=== PATIENT | female | born 1960 | race Caucasian/White ===

== ENCOUNTER 2019-08-05 13:23 | Emergency (ER) | payer MEDICARE, SELFPAY ==
[2019-08-05 13:30] VITALS: PULSE 136; RESP 48; TEMP 37.2; O2SAT 97
[2019-08-05 13:31] VITALS: BP 146/104; PULSE 93; RESP 22; TEMP 36.5; O2SAT 98; BMI 36.4
[2019-08-05 13:59] VITALS: BP 158/101; PULSE 85; RESP 16; O2SAT 98
--- NOTE | 2019-08-05 14:30 | ED_ITS ---
Entered by Keeley Guadalupe, acting as scribe for Aug 05, 2019 13:23 HPI - SOB/Dyspnea General: Chief Complaint: Shortness of Breath/Dyspnea Stated Complaint: Poss allergice reaction Time Seen by Provider: 08/05/19 14:30 Source: patient Mode of arrival: ambulatory Limitations: no limitations History of Present Illness: HPI Narrative: 59 yo female presents with allergic reaction and shortness of breath. pt states she was getting adjusted at chiropractor when she started having hives and shortness of breath. pt states she is allergic to multiple things and cats, she believes the chiropractor had cats on his clothes and she started reacting. pt denies any other symptoms at this time. 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) Context: allergen exposure (possible cat scent) Timing: progressively worsening Severity: mild Exacerbating factors: allergies and deep breaths Relieving factors: nothing Known history of: other (cat allergies) Associated symptoms: Reports rash; Deny abdominal pain, chest pain, dizziness, extremity pain, fever(s), nausea, palpitations, polydipsia, polyuria, syncope or vomiting Treatment prior to arrival: none Related Data: Home oxygen amount: none Review of Systems Const: Denies: fever, chills, body aches, fatigue, malaise or night sweats Eyes: Denies: change in vision or blurry vision ENMT: Denies: throat pain, oral sores/lesions, dental pain, nasal discharge or nasal congestion Card: Denies: chest pain, palpitations, irregular heart rhythm, edema, syncope or leg pain with exertion Resp: Denies: wheezing GI: Denies: abdominal pain, nausea, vomiting, vomiting blood, coffee grounds in vomit, difficulty swallowing, heartburn/indigestion, diarrhea, constipation, cramping, blood in stool or black tarry stool : Denies: flank pain, painful urination, urinary frequency, urinary urgency, urinary incontinence or blood in urine Musc: Denies: neck pain, back pain, extremity pain, extremity swelling, joint pain or joint swelling Neuro: Denies: headache, numbness in extremities, weakness in extremities, changes in sensation, lack of coordination, difficulty walking, frequent falls, dizziness, vertigo or confusion Psych: Denies: anxiety, depression, loss of interest, visual hallucinations, auditory hallucinations, suicidal ideation or homicidal ideation Endo: Denies: excessive urination, excessive thirst, tired all the time or cold intolerance Aashish/Lymph: Denies: easy bruising, easy bleeding, petechiae, enlarged lymph nodes or tender lymph nodes PFSH ED PFSH: Statuses (acute, chronic, etc) shown below reflect problem list status as previously entered and may not be historically accurate Social History Smoking and tobacco status: never smoked Physical Exam Const: COMMON NORMALS: average body habitus, oriented x3 and alert GENERAL APPEARANCE: cooperative, comfortable, well kempt and well developed NUTRITIONAL APPEARANCE: obese ORIENTATION/CONSCIOUSNESS: Yes awake, Yes oriented to person and Yes oriented to place HENMT: COMMON NORMALS: normocephalic, head/scalp atraumatic, EAC's normal, TM's normal bilaterally, external nose normal, moist oral mucous membranes and oropharynx normal HEAD & SCALP: normocephalic and atraumatic NOSE: external nose normal EXTERNAL AUDITORY CANAL: EAC's normal TYMPANIC MEMBRANE: TM's normal bilaterally MOUTH: oral and palatal mucosa normal, lip normal and tongue normal THROAT: posterior oropharynx normal and tonsils normal Eye: COMMON NORMALS: PERRL, EOMs intact bilaterally, conjunctivae normal and no scleral icterus CONJUNCTIVA: Yes conjunctivae normal PUPIL: Yes PERRL Neck/C-Spine: COMMON NORMALS: full ROM, no lymphadenopathy, supple, no meningeal signs and thyroid normal THYROID: thyroid normal and asymmetrical Lymph: LYMPHATIC: no lymphadenopathy noted Cardio: COMMON NORMALS: regular rate and regular rhythm RATE: regular rate RHYTHM: regular rhythm HEART SOUNDS: no murmurs GI: COMMON NORMALS: normal to inspection, nondistended, normoactive bowel sounds, soft to palpation and no hepatosplenomegaly PALPATION: Yes soft and Yes no hepatosplenomegaly : COMMON NORMALS: Yes no CVA tenderness BLADDER/KIDNEY EXAM: Yes no CVA tenderness Back/Pelvis: COMMON NORMALS: no CVA tenderness LUMBAR SPINE/LOWER BACK: Yes normal to inspection Extremity: COMMON NORMALS: no clubbing, cyanosis or edema, no calf tenderness and no pedal edema Neuro: COMMON NORMALS: oriented x3 SENSORIUM/ORIENTATION: Yes alert, Yes oriented to person and Yes oriented to place MENINGEAL SIGNS: Yes no meningeal signs Psych: APPEARANCE: Yes well kempt Course ED course: Patient has no evidence of externally of any reaction ENT exam is normal skin exam is normal there are no hive on auscultation there is no wheezing. She states that the hives are internal. She actually became quite upset. Discussed with her that I would be happy to treat her with other medications although she states she cannot take steroids she tells me it gives her horrible allergy and try to pin down what allergic type reaction she has she became more upset states the only thing she can take is Benadryl she refuses any other antihistamines. There is no stridor no wheezing laboratories completed reviewed with the patient we will discharge her home on Pepcid and Benadryl her follow-up with her extrusion press adjuster. She states this is a long standing problem and she has been seen for by multiple physicians and now follows with an extrusion press adjuster I do not see any life-threatening illness at the time things worsen or change she can certainly return immediately. Vital Signs: Vital signs: Vital Signs Temperature 97.7 F 08/05/19 13:31 Pulse Rate 87 08/05/19 15:52 Respiratory Rate 18 08/05/19 15:52 Blood Pressure 156/101 08/05/19 15:52 Pulse Oximetry 99 08/05/19 15:52 MDM - SOB/Dyspnea Lab Data: Labs: Lab Results 08/05/19 08/05/19 08/05/19 Range/Units 14:50 14:50 15:00 WBC 9.0 (4.0-10.0) 10^3/ uL RBC 4.66 (4.1-5.3) 10^6/u L Hgb 13.8 (11.5-15.3) g/dL Hct 42.9 (37.0-47.0) % MCV 92.1 (81-99) fL MCH 29.6 (28.0-34.0) pg MCHC 32.2 (30.0-36.0) g/dL RDW 13.0 (12.1-15.1) % Plt Count 265 (130-400) 10^3/c mm MPV 9.0 (7.4-10.4) fL Neut % (Auto) 57.6 % Lymph % (Auto) 33.4 % Emmet % (Auto) 7.3 % Eos % (Auto) 1.1 % Baso % (Auto) 0.3 % Neut # (Auto) 5.2 (1.8-7.7) 10^3/u L Lymph # (Auto) 3.0 (0.8-4.8) 10^3/u L Emmet # (Auto) 0.7 (0.2-0.9) 10^3/u L Eos # (Auto) 0.1 (0.0-0.8) 10^3/u L Baso # (Auto) 0.0 (0.0-0.1) 10^3/u L Nucleated RBC % (a uto) 0 % Nucleated RBCs # 0.0 /100WBC Specimen Type Arterial Sample Site Radial, right ABG pH 7.42 (7.35-7.45) ABG pCO2 32.8 L (35-45) mmHg ABG pO2 72.1 L (80.0-100.0) mmH g ABG HCO3 21.1 L (22-26) mmol/L ABG O2 Saturation 95.6 ABG Base Excess -2.7 L (-2.0-2.0) mmol/ L Suraj Test Pos A-a O2 Gradient 36.0 H (5-10) mmHg Hematocrit 42.5 (37-47) % Hgb O2 Saturation 94.7 L (95-100) % Carboxyhemoglobin 0.4 (0.4-20.1) %THgb Methemoglobin 0.5 (0.4-1.5) % Total Hemoglobin 13.9 (12-16) g/dL Ionized Calcium 1.2 (1.1-1.4) mmol/L FiO2 21.0 % Cured Meats Supervisor ID ed Sodium 139 145.0 H (136-145) mmol/L Potassium 3.7 3.6 (3.5-5.1) mmol/L Chloride 105 (98-107) mmol/L Carbon Dioxide 22 (22-29) mmol/L Anion Gap 15.7 (5-19) BUN 12 (6-20) mg/dL Creatinine 0.9 (0.5-0.9) mg/dL GFR Calculation 64.5 L (90-130) mL/min Glucose 102 92.0 (74-109) mg/dL Calcium 10.0 (8.6-10.0) mg/Dl Imaging Data^: CXR: Radiologist's impression: [address] [place] [address] XRay Report Signed Patient: Renetta Uriostegui #: [id number] : 2Acct#:[id number] Age/Sex: 59 / FADM Date: 08/05/19 Loc: ERRoom/Bed: Attending Dr: Ordering Provider/Ordering MD: Guido Evans DO Date of Service: 08/05/19 Procedure(s): XR chest 1V portable [id number] Accession Number(s): [id number] Report Number: [id number] WS: [id number] Portable AP upright chest, 08/05/2019 Clinical Data: SOB Comparison: PA and lateral chest, 01/09/2019. Findings: No nodules, masses or effusions are seen. The heart is normal. The pulmonary vascularity is not increased. No pneumonia or pneumothorax is seen. The aortic arch and descending aorta show minimal calcification. XR/XR chest 1V portable [id number] Impression: Atherosclerosis. Dictated By:Nancy Millan MD Signed By:Nancy Millan MDSigned Date/Time:08/05/191457 DD/ 53 Discharge Plan Discharge Patient Disposition: Home, Self-Care Clinical Impression: Allergic reaction Condition: Stable Prescriptions: New Pepcid 20 mg tablet 20 mg PO Q6H Qty: 20 RF: 0 No Action losartan 50 mg Tablet 50 mg PO DAILY RF: 0 carisoprodol 350 mg Tablet 350 mg PO TID PRN (Reason: Pain) RF: 0 Lasix 40 mg Tablet 40 mg PO DAILY PRN (Reason: Edema) RF: 0 potassium chloride 10 mEq Capsule, Extended Release 10 meq PO DAILY RF: 0 alprazolam 1 mg Tablet 1 mg PO QID PRN (Reason: Anxiety) RF: 0 trazodone 100 mg Tablet 200 mg PO BEDTIME RF: 0 pantoprazole 40 mg Tablet,Delayed Release (Dr/Ec) 40 mg PO DAILY RF: 0 montelukast 10 mg Tablet 10 mg PO DAILY RF: 0 ergocalciferol (vitamin D2) 50,000 unit Capsule 50,000 unit PO DAILY RF: 0 topiramate 100 mg Tablet 100 mg PO DAILY RF: 0 levothyroxine 25 mcg Capsule 25 mcg PO DAILY RF: 0 Discharge Orders: Discharge Order (Routine); Ordered 08/05/19 Ordered By: Guido Evans Referrals: Philippe Garg MD [Family Provider] - Discharge Diet: Advance as tolerated Discharge Activity: Resume usual activity Activity Restrictions/Additional Instructions: May use [id number] Benadryl as needed recommend 25 mg every 6 hours as needed Discharge Date/Time: 08/05/19 15:52 Coding Level of Care Code ED Senior Environmental Practice Leader for Chg Fwd Exam Problem Focused The documentation recorded by the [employer] [facility] Bridget Annette, accurately reflects the service I personally performed and the decisions made by , Guido Evans DO Aug 05, 2019 13:23
[2019-08-05 14:31] VITALS: BP 160/98; PULSE 85; RESP 20; O2SAT 98
--- NOTE | 2019-08-05 14:33 | XR_ITS ---
WS: [id number] Portable AP upright chest, 08/05/2019 Clinical Data: SOB Comparison: PA and lateral chest, 01/09/2019. Findings: No nodules, masses or effusions are seen. The heart is normal. The pulmonary vascularity is not increased. No pneumonia or pneumothorax is seen. The aortic arch and descending aorta show minim al calcification. XR/XR chest 1V portable [id number] Impression: Atherosclerosis.
[2019-08-05] MEDS: famotidine 20 mg Tablet 40 MG PO (14:47)
[2019-08-05 14:58] LABS: Basophils % 0.3 %; Eosinophils # 0.1 10^3/uL (0.0-0.8); Eosinophils % 1.1 %; Hematocrit 42.9 % (37.0-47.0); Hemoglobin 13.8 g/dL (11.5-15.3); Lymphocytes % 33.4 %; Mean Corpuscular HGB Conc 32.2 g/dL (30.0-36.0); Mean Corpuscular Hemoglobin 29.6 pg (28.0-34.0); Mean Corpuscular Volume 92.1 fL (81-99); Monocytes # 0.7 10^3/uL (0.2-0.9); Monocytes % 7.3 %; Neutrophils # 5.2 10^3/uL (1.8-7.7); Neutrophils % 57.6 %; Nucleated Red Blood Cells % 0 %; Platelet Count 265 10^3/cmm (130-400); Red Blood Count 4.66 10^6/uL (4.1-5.3)
[2019-08-05] MEDS: diphenhydrAMINE 50 mg/mL SDV 1mL 25 MG IVP (15:05)
[2019-08-05 15:12] LABS: Anion Gap 15.7 (5-19); Blood Urea Nitrogen 12 mg/dL (6-20); Carbon Dioxide 22 mmol/L (22-29); Chloride 105 mmol/L (98-107); Glomerular Filtration Rate 64.5 mL/min (90-130); Glucose 102 mg/dL (74-109); Potassium 3.7 mmol/L (3.5-5.1); Sodium 139 mmol/L (136-145)
[2019-08-05 15:13] LABS: ABG PCO2 32.8 mmHg (35-45); ABG PH Result 7.42 (7.35-7.45); Arterial Blood Gas Hematocrit 42.5 % (37-47); Base Excess ABG -2.7 mmol/L (-2.0-2.0); Blood Gas Allen Test Pos; Blood Gas Sample Site Radial, right; Blood Gas Sample Type Arterial; Carboxyhemoglobin 0.4 %THgb (0.4-20.1); HCO3 ABG 21.1 mmol/L (22-26); HGB O2 Sat 94.7 % (95-100); Ionized Calcium Level - ABG 1.2 mmol/L (1.1-1.4); Methemoglobin 0.5 % (0.4-1.5); Oxygen Saturation ABG 95.6; PO2 ABG 72.1 mmHg (80.0-100.0); Potassium Level - ABG 3.6 mmol/L (3.5-5.0); Total Hemoglobin 13.9 g/dL (12-16)
[2019-08-05 15:52] VITALS: BP 156/101; PULSE 87; RESP 18; O2SAT 99
== END 2019-08-05 15:52 | disposition home or self-care (01) ==
PROVIDERS: Emergency Provider Family Medicine; Family Provider Family Medicine
DX: T78.40XA Allergy, unspecified, initial encounter (principal); X58.XXXA Exposure to other specified factors, initial encounter
CPT/HCPCS: 36415; 36600; 71045; 80048; 80051; 82810; 83986; 85025; 96374; 99281; J1200

== ENCOUNTER → 2019-12-17 15:42 | Outpatient (BNVA) | payer MEDICARE, MEDICAID, SELFPAY | PROVIDERS: Family Provider Family Medicine; PCP Family Medicine; Referring Provider Family Medicine; Visit Provider Podiatrist Foot & Ankle Surgery | DX: M79.671 Pain in right foot (principal); M79.672 Pain in left foot | CPT/HCPCS: 73630 ==

== ENCOUNTER 2020-02-05 15:28 | Outpatient (CLI) | payer MEDICARE, MEDICAID, SELFPAY | END 2020-02-05 15:29 | disposition home or self-care (01) | LOC: SPT 15:29 | PROVIDERS: Family Provider Family Medicine; PCP Family Medicine; Visit Provider Podiatrist Foot & Ankle Surgery | DX: Z47.89 Encounter for other orthopedic aftercare (principal); M76.72 Peroneal tendinitis, left leg | CPT/HCPCS: 97760; L4397 ==

== ENCOUNTER 2020-05-04 13:17 | Outpatient (CLI) | payer MEDICARE, MEDICAID, SELFPAY ==
--- NOTE | 2020-05-04 13:24 | MR_ITS ---
WS: [id number] MRI LEFT ANKLE NONCONTRAST TECHNIQUE: Sagittal proton density, sagittal STIR, axial proton density, axial T1, axial T2 fat sat, coronal proton density, coronal proton density fat sat, coronal T2 fat sat. CLINICAL INFORMATION: left leg peroneal tendinitis COMPARISON: None. FINDINGS: Normal ankle mortise. Normal medial and lateral malleolus. Normal talar dome. Normal calcaneus. Dist al Achilles appears intact. Normal plantar fascia. Peroneal longus and brevis appear intact. Normal peroneal brevis insertion on the base of the fifth m etatarsal. Bone marrow signal in the fifth metatarsal base appears normal. Tiny amount of tenosynovit is along the peroneal brevis at the level of the peroneal tubercle Extensor and flexor compartment tendons are normal. Tiny amount of tenosynovitis along the tibialis p osterior. Extensor and flexor compartment tendons are otherwise normal in appearance. IMPRESSION: 1. Peroneal tendons are intact. Tiny amount of tenosynovitis involving the peroneal brevis at the le luis alfredo of the tubercle. Normal insertion at the base of the fifth metatarsal. 2. Distal Achilles is normal. 3. Small amount of tenosynovitis involving the tibialis posterior. 4. Normal bone marrow signal.
== END 2020-05-04 13:18 | disposition home or self-care (01) ==
LOC: RADWPI 13:22
PROVIDERS: Family Provider Family Medicine; PCP Family Medicine; Visit Provider Podiatrist Foot & Ankle Surgery
DX: M76.72 Peroneal tendinitis, left leg (principal); M65.872 Other synovitis and tenosynovitis, left ankle and foot
CPT/HCPCS: 73721

== ENCOUNTER 2020-12-29 07:05 | Outpatient (CLI) | payer MEDICARE, MEDICAID, SELFPAY ==
--- NOTE | 2020-12-29 07:21 | US_ITS ---
WS: [id number] RENAL ULTRASOUND HISTORY: NEPHROLITHIASIS COMPARISON: None available. TECHNIQUE: 2-D and color Doppler imaging of the kidney submitted. Right kidney: 9.9 cm x 6.0 cm x 6.7 cm. No hydronephrosis or solid mass. Cortical cyst is stable at 1.5 cm in the mid kidney since 10/10/2018. Left kidney: 8.1 cm x 4.2 cm x 5.4 cm. Mild atrophy of the LEFT kidney is similar to prior studies. No hydronephrosis. Aorta: Normal. Urinary Bladder: Normal distention. US/US renal BI* [id number] IMPRESSION: 1. No residual RIGHT hydronephrosis or calcifications identified. 2. Mild stable atrophy LEFT kidney.
== END 2020-12-29 07:06 | disposition home or self-care (01) ==
PROVIDERS: PCP Family Medicine; Visit Provider Internal Medicine Nephrology
DX: N20.0 Calculus of kidney (principal); N26.1 Atrophy of kidney (terminal)
CPT/HCPCS: 76770

== ENCOUNTER 2021-07-16 12:59 | Emergency (ER) | payer MEDICARE, MEDICAID, SELFPAY ==
[2021-07-16 13:07] VITALS: BP 154/96; PULSE 78; RESP 16; TEMP 36.6; O2SAT 98
--- NOTE | 2021-07-16 13:12 | XR_ITS ---
WS: [id number] RIGHT HAND: 3 VIEW(S) TECHNIQUE: PA, oblique and lateral. HISTORY: injury COMPARISON: None available. No acute fracture or dislocation. Mild interphalangeal joint space narrowing. No fractures or erosions. Mild soft tissue edema along the fifth metacarpal. XR/XR hand RT min 3V* [id number] IMPRESSION: 1. No fracture. 2. Soft tissue edema adjacent to the fifth metacarpal.
--- NOTE | 2021-07-16 13:32 | ED_ITS ---
HPI - Extremity Problem General: Chief complaint: Extremity Injury, Upper Stated complaint: injured R hand Time Seen by Provider: 07/16/21 13:11 History of Present Illness: HPI Narrative: Patient's right hand got struck by a Dog leash type cable that was pulled taunt when her 2 dogs were fighting. Her hand and that get caught in a cable just struck by the cable. Patient had immediate swelling on the area below the little finger. This happened a few minutes ago Complaint: extremity pain Onset (ago): minute(s) Pain Consistency: constant Location: right and upper extremity Severity scale (1-10): 4 Quality: aching Radiation: none Relieving factors: nothing Associated symptoms: Deny fever(s) Review of Systems Const: Denies: fever(s) or chills Musc: Reports: extremity pain (Right hand) Psych: Denies: anxiety or depression [facility] ED PFSH: Medical History (Updated 07/16/21 @ 13:26 by JENIFFER Hernandez) Kidney disease Spinal stenosis Social History Smoking and tobacco status: never smoked Physical Exam Const: COMMON NORMALS: no acute distress GENERAL APPEARANCE: cooperative Extremity: RIGHT UPPER EXTREMITY: Yes hand & digits (Tenderness above fifth metacarpal, hematoma, does have full range of motion) Psych: COMMON NORMALS: mental status grossly normal Course Vital Signs: Vital signs: Vital Signs Temperature 97.8 F 07/16/21 13:07 Pulse Rate 78 07/16/21 13:07 Respiratory Rate 16 07/16/21 13:07 Blood Pressure 154/96 07/16/21 13:07 Pulse Oximetry 98 07/16/21 13:07 Discharge Plan Discharge Patient Disposition: Home Clinical Impression: Contusion Qualifiers: Encounter type: initial encounter Contusion area: hand Laterality: right Qualified Code(s): S60.221A - Contusion of right hand, initial encounter Condition: Stable Prescriptions: No Action (DME) [place] ankle braces, bilateral See Rx Instructions .Route .MEDSUPPLY Qty: 1 RF: 0 B12 Active 1,000 mcg tablet,chewable 1,000 mcg PO DAILY RF: 0 diclofenac sodium [Voltaren] 1 % gel 4 gm TOPICAL QID Qty: 100 RF: 3 (DME) night splint See Rx Instructions .Route .MEDSUPPLY Qty: 1 RF: 0 (DME) Custom functional orthotics See Rx Instructions .Route .MEDSUPPLY Qty: 1 RF: 0 losartan 50 mg Tablet 50 mg PO DAILY RF: 0 carisoprodol 350 mg Tablet 350 mg PO TID PRN (Reason: Pain) RF: 0 Lasix 40 mg Tablet 40 mg PO DAILY PRN (Reason: Edema) RF: 0 potassium chloride 10 mEq Capsule, Extended Release 10 meq PO DAILY RF: 0 alprazolam 1 mg Tablet 1 mg PO QID PRN (Reason: Anxiety) RF: 0 trazodone 100 mg Tablet 200 mg PO BEDTIME RF: 0 pantoprazole 40 mg Tablet,Delayed Release (Dr/Ec) 40 mg PO DAILY RF: 0 montelukast 10 mg Tablet 10 mg PO DAILY RF: 0 ergocalciferol (vitamin D2) 50,000 unit Capsule 50,000 unit PO DAILY RF: 0 topiramate 100 mg Tablet 100 mg PO DAILY RF: 0 levothyroxine 25 mcg Capsule 25 mcg PO DAILY RF: 0 Discharge Orders: Discharge ED (Routine); Ordered 07/16/21 Ordered By: Nathaniel Duarte Referrals: Philippe Garg MD [Primary Care Provider] - Discharge Diet: Usual diet Discharge Activity: Increase activity as tolerated Patient Instructions: Contusion in Adults (ED) Activity Restrictions/Additional Instructions: Apply ice to area as needed. Can take Tylenol for discomfort. Follow-up your family medical provider or return here if worsening symptoms. Coding Level of Care Code ED Group Home Counselor for Tony Vences
== END 2021-07-16 13:34 | disposition home or self-care (01) ==
PROVIDERS: Emergency Provider Nurse Practitioner Family; PCP Family Medicine
DX: S60.221A Contusion of right hand, initial encounter (principal); W22.8XXA Striking against or struck by other objects, initial encounter
CPT/HCPCS: 73130; 99281

== ENCOUNTER 2021-08-18 05:17 | Inpatient (IN) | payer MEDICARE, MEDICAID, SELFPAY ==
[2021-08-18] VITALS (17 sets, daily range): BP systolic 127–151; BP diastolic 51–82; PULSE 63–114; RESP 18–38; TEMP 37.2–37.5; O2SAT 89–94; BMI 32.8
--- NOTE | 2021-08-18 05:23 | XRR_ITS ---
PROCEDURE INFORMATION: Exam: XR Chest Exam date and time: 08/18/2021 5:23 AM Age: 61 years old Clinical indication: Patient HX: SOB coughing x 14 days TECHNIQUE: Imaging protocol: XR of the chest. Views: 1 view. COMPARISON: CR XR chest 1V portable [id number] 08/05/2019 3:01 PM FINDINGS: Lungs: Nonspecific prominence of the interstitial markings and right lower lobe opacity which may be secondary to mild edema versus atypical viral infection. Pleural spaces: Unremarkable. No pleural effusion. No pneumothorax. Heart/Mediastinum: There is mild cardiomegaly. Bones/joints: Unremarkable. XR/XR chest 1V portable [id number] IMPRESSION: 1. Mild cardiomegaly. 2. Nonspecific prominence of the interstitial markings and right lower lobe opacity which may be secondary to mild edema versus atypical viral infection.
--- NOTE | 2021-08-18 05:25 | W.ED.SOB ---
Documented by User: Norbert Wright MD 08/18/21 05:38 HPI - SOB/Dyspnea General: Chief Complaint: ER Hold Stated Complaint: SOB Time Seen by Provider: 08/18/21 05:23 Source: patient and EMS Mode of arrival: EMS Limitations: no limitations History of Present Illness: HPI Narrative: 61-year-old female who was diagnosed with Covid on the . States her symptoms Prima started that day or the day before and since then she has had cough fever body aches states she had increasing shortness of breath over the last 4 to 5 days states he got much worse overnight and called EMS when EMS arrived her pulse ox was in the 70s here on room air it is 79% patient is currently on 6 L to keep her oxygen saturation above 90. She is in distress with tachypnea she denies any worsening improving factors did have a breathing treatment on the way and refused Decadron as she is allergic to steroids she states. Denies any chest pain denies any vomiting or diarrhea. Associated symptoms: Reports fever(s); Deny abdominal pain, chest pain, nausea or vomiting Review of Systems Const: Reports: fever(s), chills and body aches Eyes: Denies: blurry vision or eye discomfort ENMT: Denies: throat pain or dental pain Card: Denies: chest pain Resp: Reports: dyspnea and non-productive cough GI: Denies: abdominal pain, nausea, vomiting or diarrhea : Denies: dysuria Musc: Denies: neck pain or back pain Skin/Breast: Denies: rash Neuro: Denies: headache(s) Psych: Denies: depression Aashish/Lymph: Denies: easy bruising All/Imm: Denies: urticaria PFSH ED PFSH: Medical History (Updated 08/18/21 @ 05:27 by Norbert Wright MD) Kidney disease Spinal stenosis Social History Smoking and tobacco status: never smoked Physical Exam Const: COMMON NORMALS: patient oriented x3 and healthy appearing GENERAL APPEARANCE: in distress and ill appearing HENMT: COMMON NORMALS: normocephalic and atraumatic HEAD & SCALP: normocephalic and atraumatic Eye: COMMON NORMALS: Equal, round and reactive pupils present and EOMs intact bilaterally PUPIL: Yes Equal, round and reactive pupils present Neck/C-Spine: COMMON NORMALS: full ROM and supple Chest: COMMONS NORMALS: normal inspection of the chest and normal palpation of entire chest wall Resp: EFFORT & INSPECTION: Yes tachypneic and Yes respiratory distress AUSCULTATION: rales Cardio: COMMON NORMALS: regular rate, regular rhythm and No murmurs present (Cardio) RATE: regular rate RHYTHM: regular rhythm GI: COMMON NORMALS: Normal to inspection, nondistended, normoactive bowel sounds present, Soft to palpation, non-tender and no masses PALPATION: Yes Soft to palpation Extremity: COMMON NORMALS: normal to inspection and full ROM Neuro: COMMON NORMALS: patient oriented x3, moves all extremities and no focal motor deficits Psych: COMMON NORMALS: mental status grossly normal, Normal thought process present and cooperative THOUGHT PROCESS: Normal thought process present Skin: COMMON NORMALS: no rashes or lesions noted and no wounds GENERAL SKIN EXAM: no rashes or lesions noted Course Vital Signs: Vital signs: Vital Signs Temperature 98.9 F 08/18/21 05:21 Pulse Rate 88 08/18/21 07:18 Respiratory Rate 22 H 08/18/21 07:18 Blood Pressure 151/79 08/18/21 07:18 Pulse Oximetry 92 08/18/21 07:18 MDM - SOB/Dyspnea Lab Data Result diagrams: 08/18/21 05:41 08/18/21 05:41 Labs: Radiology Impressions Chest X-Ray 08/18/21 05:23 IMPRESSION: 1. Mild cardiomegaly. 2. Nonspecific prominence of the interstitial markings and right lower lobe opacity which may be secondary to mild edema versus atypical viral infection. Chest CTA 08/18/21 06:12 IMPRESSION: 1. No sign of acute pulmonary embolism. 2. Bilateral pneumonia, likely due to COVID-19. Laboratory Results WBC 9.3 10^3/uL (4.0-10.0) 08/18/21 05:41 RBC 4.41 10^6/uL (4.1-5.3) 08/18/21 05:41 Hgb 13.0 g/dL (11.5-15.3) 08/18/21 05:41 Hct 40.4 % (37.0-47.0) 08/18/21 05:41 MCV 91.6 fl (81-99) 08/18/21 05:41 MCH 29.5 pg (28.0-34.0) 08/18/21 05:41 MCHC 32.2 g/dL (30.0-36.0) 08/18/21 05:41 RDW 13.1 % (12.1-15.1) 08/18/21 05:41 Plt Count 208 10^3/cmm (130-400) 08/18/21 05:41 MPV 9.1 fL (7.4-10.4) 08/18/21 05:41 Neut % (Auto) 87.7 % 08/18/21 05:41 Lymph % (Auto) 6.8 % 08/18/21 05:41 [place] % (Auto) 4.5 % 08/18/21 05:41 Eos % (Auto) 0.0 % 08/18/21 05:41 Baso % (Auto) 0.1 % 08/18/21 05:41 Neut # (Auto) 8.17 10^3/uL (1.8-7.7) H 08/18/21 05:41 Lymph # (Auto) 0.6 10^3/uL (0.8-4.8) L 08/18/21 05:41 [place] # (Auto) 0.4 10^3/uL (0.2-0.9) 08/18/21 05:41 Eos # (Auto) 0.0 10^3/uL (0.0-0.8) 08/18/21 05:41 Baso # (Auto) 0.0 10^3/uL (0.0-0.1) 08/18/21 05:41 Nucleated RBC % (auto) 0 % 08/18/21 05:41 Nucleated RBCs # 0.0 /100WBC 08/18/21 05:41 D-Dimer 1.48 ug/mIFEU (0-0.59) H 08/18/21 05:41 Specimen Type Arterial 08/18/21 08:05 Sample Site Brachial, right 08/18/21 08:05 ABG pH 7.47 (7.35-7.45) H 08/18/21 08:05 ABG pCO2 29.6 mmHg (35-45) L 08/18/21 08:05 ABG pO2 56.0 mmHg (80.0-100.0) L 08/18/21 08:05 ABG HCO3 21.4 mmol/L (22-26) L 08/18/21 08:05 ABG O2 Saturation 92.1 08/18/21 08:05 ABG Base Excess -1.4 mmol/L (-2.0-2.0) 08/18/21 08:05 Suraj Test Pos 08/18/21 08:05 A-a O2 Gradient 38.7 mmHg (5-10) H 08/18/21 08:05 Hematocrit 38.7 % (37-47) 08/18/21 08:05 Hgb O2 Saturation 90.7 % (95-100) L 08/18/21 08:05 Carboxyhemoglobin 0.6 %THgb (0.4-20.1) 08/18/21 08:05 Methemoglobin 0.9 % (0.4-1.5) 08/18/21 08:05 Total Hemoglobin 12.6 g/dL (12-16) 08/18/21 08:05 Sodium 136.0 mmol/L (131-143) 08/18/21 08:05 Potassium 2.9 mmol/L (3.5-5.0) L 08/18/21 08:05 Glucose 130.0 mg/dL (70-115) H 08/18/21 08:05 Ionized Calcium 1.2 mmol/L (1.1-1.4) 08/18/21 08:05 O2 Delivery Device Nc 08/18/21 08:05 O2 Liters/Min 40.0 % 08/18/21 08:05 FiO2 54.0 % 08/18/21 08:05 Trimmer Buffing Wheel ID Bd 08/18/21 08:05 Sodium 136 mmol/L (136-145) 08/18/21 05:41 Potassium 3.2 mmol/L (3.5-5.1) L 08/18/21 05:41 Chloride 101 mmol/L (98-107) 08/18/21 05:41 Carbon Dioxide 17 mmol/L (22-29) L 08/18/21 05:41 Anion Gap 21.2 (5-19) H 08/18/21 05:41 BUN 9 mg/dL (6-20) 08/18/21 05:41 Creatinine 0.6 mg/dL (0.5-0.9) 08/18/21 05:41 GFR Calculation 102.3 mL/min (90-130) 08/18/21 05:41 Glucose 125 mg/dL (65-115) H 08/18/21 05:41 Calculated Osmolality 282 mOsm/kg (285-295) L 08/18/21 05:41 Lactic Acid 1.3 mmol/L (0.5-2.2) 08/18/21 06:49 Calcium 8.8 mg/dL (8.5-10.5) 08/18/21 05:41 Total Bilirubin 0.3 mg/dL (0.15-1.2) 08/18/21 05:41 AST 47 U/L (0-32) H 08/18/21 05:41 ALT 25 U/L (0-33) 08/18/21 05:41 Alkaline Phosphatase 94 IU/L (35-105) 08/18/21 05:41 Lactate Dehydrogenase 783 U/L (135-214) H 08/18/21 05:41 C-Reactive Protein 166.5 mg/L (0.0-4.9) H 08/18/21 05:41 NT-Pro-B Natriuret Pep 242 pg/mL (0-125) H 08/18/21 05:41 Total Protein 6.0 g/dL (6.6-8.7) L 08/18/21 05:41 Albumin 3.7 g/dL (3.5-5.2) 08/18/21 05:41 Globulin 2.3 g/dL (1.3-4.6) 08/18/21 05:41 Procalcitonin 0.28 ng/mL (0-0.5) 08/18/21 05:41 EKG Data EKG 1: Attestation: I personally reviewed and interpreted this EKG as follows: EKG Interpretation Date: 08/18/21 EKG interpretation time: 05:28 Interpretation: nsr hr [address] or t wave abnormalities qrs 103 qtc 390 Critical Care Time Critical Care Time: Critical Care Time: Yes Total Critical Care Time: 40 Attestation: The high probability of a clinically significant, sudden or life threatening deterioration of the patient's pulmonary system(s) required my full and direct attention, intervention and personal management. The critical care time is as shown. This time is in addition to time spent performing any reported procedures but includes the following: [x] Data and vital sign review and interpretation [x] Patient assessment, examination and intervention [x] Documentation [x] Medication orders and management Discharge Plan Discharge Patient Disposition: Admitted As Inpatient Clinical Impression: Acute respiratory failure with hypoxia, COVID-19 Condition: Stable Prescriptions: No Action (DME) [place]ock ankle braces, bilateral See Rx Instructions .Route .MEDSUPPLY Qty: 1 0RF Rx Instructions: As directed B12 Active 1,000 mcg tablet,chewable 1,000 mcg PO DAILY 0RF diclofenac sodium [Voltaren] 1 % gel 4 gm TOPICAL QID Qty: 100 3RF Rx Instructions: apply to single knee, ankle, foot; for foot includes sole/toes/top of foot (DME) night splint See Rx Instructions .Route .MEDSUPPLY Qty: 1 0RF Rx Instructions: As directed (DME) Custom functional orthotics See Rx Instructions .Route .MEDSUPPLY Qty: 1 0RF Rx Instructions: As directed losartan 50 mg Tablet 50 mg PO DAILY 0RF carisoprodol 350 mg Tablet 350 mg PO TID PRN (Reason: Pain) 0RF Lasix 40 mg Tablet 40 mg PO DAILY PRN (Reason: Edema) 0RF potassium chloride 10 mEq Capsule, Extended Release 10 meq PO DAILY 0RF alprazolam 1 mg Tablet 1 mg PO QID PRN (Reason: Anxiety) 0RF trazodone 100 mg Tablet 200 mg PO BEDTIME 0RF pantoprazole 40 mg Tablet,Delayed Release (Dr/Ec) 40 mg PO DAILY 0RF montelukast 10 mg Tablet 10 mg PO DAILY 0RF ergocalciferol (vitamin D2) 50,000 unit Capsule 50,000 unit PO DAILY 0RF topiramate 100 mg Tablet 100 mg PO DAILY 0RF levothyroxine 25 mcg Capsule 25 mcg PO DAILY 0RF Referrals: Philippe Garg MD [Primary Care Provider] - Sign Out Sign Out Data: Patient Sign Out occurred on 08/18/21 at 06:04. Patient's care was discussed, and care was transferred from to Guido Evans DO. Coding Level of Care Code ED Car Construction Superintendent for Chg Fwd Exam Comprehensive Documented by User: Guido Evans DO 08/18/21 08:35 HPI - SOB/Dyspnea General: Chief Complaint: ER Hold Stated Complaint: SOB Time Seen by Provider: 08/18/21 05:23 PFSH ED PFSH: Medical History (Updated 08/18/21 @ 05:27 by Norbert Wright MD) Kidney disease Spinal stenosis Social History Smoking and tobacco status: never smoked Course Vital Signs: Vital signs: Vital Signs Temperature 98.9 F 08/18/21 05:21 Pulse Rate 88 08/18/21 07:18 Respiratory Rate 22 H 08/18/21 07:18 Blood Pressure 151/79 08/18/21 07:18 Pulse Oximetry 92 08/18/21 07:18 MDM - SOB/Dyspnea MDM Narrative Medical decision making narrative: Assumed care at change of shift. Patient continues to be hypoxic on nasal cannula switched to heated high flow and CTA of the chest was done. Patient expressed concern about receiving steroids discussed risks and benefits at this point benefits far outweigh the risks she has had steroids in the past she is also had Benadryl in the past. She is given hydrocortisone and Benadryl with no adverse effect CTA did not show a PE does show extensive involvement of lung tissue with infiltrates secondary to her COVID. Did recommend that she prone for time as well as her oxygen sats remained hovering around 90 she declined because of back pain. She also initially declined remdesivir and dexamethasone discussed with her at this point I think what ever perceived risk is secondary to the benefits especially with her severe illness at this point she agreed to go ahead with treatment. Discussed with hospitalist orders written. Lab Data Result diagrams: 08/18/21 05:41 08/18/21 05:41 Labs: Radiology Impressions Chest X-Ray 08/18/21 05:23 IMPRESSION: 1. Mild cardiomegaly. 2. Nonspecific prominence of the interstitial markings and right lower lobe opacity which may be secondary to mild edema versus atypical viral infection. Chest CTA 08/18/21 06:12 IMPRESSION: 1. No sign of acute pulmonary embolism. 2. Bilateral pneumonia, likely due to COVID-19. Laboratory Results WBC 9.3 10^3/uL (4.0-10.0) 08/18/21 05:41 RBC 4.41 10^6/uL (4.1-5.3) 08/18/21 05:41 Hgb 13.0 g/dL (11.5-15.3) 08/18/21 05:41 Hct 40.4 % (37.0-47.0) 08/18/21 05:41 MCV 91.6 fl (81-99) 08/18/21 05:41 MCH 29.5 pg (28.0-34.0) 08/18/21 05:41 MCHC 32.2 g/dL (30.0-36.0) 08/18/21 05:41 RDW 13.1 % (12.1-15.1) 08/18/21 05:41 Plt Count 208 10^3/cmm (130-400) 08/18/21 05:41 MPV 9.1 fL (7.4-10.4) 08/18/21 05:41 Neut % (Auto) 87.7 % 08/18/21 05:41 Lymph % (Auto) 6.8 % 08/18/21 05:41 [place] % (Auto) 4.5 % 08/18/21 05:41 Eos % (Auto) 0.0 % 08/18/21 05:41 Baso % (Auto) 0.1 % 08/18/21 05:41 Neut # (Auto) 8.17 10^3/uL (1.8-7.7) H 08/18/21 05:41 Lymph # (Auto) 0.6 10^3/uL (0.8-4.8) L 08/18/21 05:41 [place] # (Auto) 0.4 10^3/uL (0.2-0.9) 08/18/21 05:41 Eos # (Auto) 0.0 10^3/uL (0.0-0.8) 08/18/21 05:41 Baso # (Auto) 0.0 10^3/uL (0.0-0.1) 08/18/21 05:41 Nucleated RBC % (auto) 0 % 08/18/21 05:41 Nucleated RBCs # 0.0 /100WBC 08/18/21 05:41 D-Dimer 1.48 ug/mIFEU (0-0.59) H 08/18/21 05:41 Specimen Type Arterial 08/18/21 08:05 Sample Site Brachial, right 08/18/21 08:05 ABG pH 7.47 (7.35-7.45) H 08/18/21 08:05 ABG pCO2 29.6 mmHg (35-45) L 08/18/21 08:05 ABG pO2 56.0 mmHg (80.0-100.0) L 08/18/21 08:05 ABG HCO3 21.4 mmol/L (22-26) L 08/18/21 08:05 ABG O2 Saturation 92.1 08/18/21 08:05 ABG Base Excess -1.4 mmol/L (-2.0-2.0) 08/18/21 08:05 Suraj Test Pos 08/18/21 08:05 A-a O2 Gradient 38.7 mmHg (5-10) H 08/18/21 08:05 Hematocrit 38.7 % (37-47) 08/18/21 08:05 Hgb O2 Saturation 90.7 % (95-100) L 08/18/21 08:05 Carboxyhemoglobin 0.6 %THgb (0.4-20.1) 08/18/21 08:05 Methemoglobin 0.9 % (0.4-1.5) 08/18/21 08:05 Total Hemoglobin 12.6 g/dL (12-16) 08/18/21 08:05 Sodium 136.0 mmol/L (131-143) 08/18/21 08:05 Potassium 2.9 mmol/L (3.5-5.0) L 08/18/21 08:05 Glucose 130.0 mg/dL (70-115) H 08/18/21 08:05 Ionized Calcium 1.2 mmol/L (1.1-1.4) 08/18/21 08:05 O2 Delivery Device Nc 08/18/21 08:05 O2 Liters/Min 40.0 % 08/18/21 08:05 FiO2 54.0 % 08/18/21 08:05 Trimmer Buffing Wheel ID Bd 08/18/21 08:05 Sodium 136 mmol/L (136-145) 08/18/21 05:41 Potassium 3.2 mmol/L (3.5-5.1) L 08/18/21 05:41 Chloride 101 mmol/L (98-107) 08/18/21 05:41 Carbon Dioxide 17 mmol/L (22-29) L 08/18/21 05:41 Anion Gap 21.2 (5-19) H 08/18/21 05:41 BUN 9 mg/dL (6-20) 08/18/21 05:41 Creatinine 0.6 mg/dL (0.5-0.9) 08/18/21 05:41 GFR Calculation 102.3 mL/min (90-130) 08/18/21 05:41 Glucose 125 mg/dL (65-115) H 08/18/21 05:41 Calculated Osmolality 282 mOsm/kg (285-295) L 08/18/21 05:41 Lactic Acid 1.3 mmol/L (0.5-2.2) 08/18/21 06:49 Calcium 8.8 mg/dL (8.5-10.5) 08/18/21 05:41 Total Bilirubin 0.3 mg/dL (0.15-1.2) 08/18/21 05:41 AST 47 U/L (0-32) H 08/18/21 05:41 ALT 25 U/L (0-33) 08/18/21 05:41 Alkaline Phosphatase 94 IU/L (35-105) 08/18/21 05:41 Lactate Dehydrogenase 783 U/L (135-214) H 08/18/21 05:41 C-Reactive Protein 166.5 mg/L (0.0-4.9) H 08/18/21 05:41 NT-Pro-B Natriuret Pep 242 pg/mL (0-125) H 08/18/21 05:41 Total Protein 6.0 g/dL (6.6-8.7) L 08/18/21 05:41 Albumin 3.7 g/dL (3.5-5.2) 08/18/21 05:41 Globulin 2.3 g/dL (1.3-4.6) 08/18/21 05:41 Procalcitonin 0.28 ng/mL (0-0.5) 08/18/21 05:41 Discharge Plan Discharge Patient Disposition: Admitted As Inpatient Clinical Impression: Acute respiratory failure with hypoxia, COVID-19 Condition: Stable Prescriptions: No Action (DME) [place] ankle braces, bilateral See Rx Instructions .Route .MEDSUPPLY Qty: 1 0RF Rx Instructions: As directed B12 Active 1,000 mcg tablet,chewable 1,000 mcg PO DAILY 0RF diclofenac sodium [Voltaren] 1 % gel 4 gm TOPICAL QID Qty: 100 3RF Rx Instructions: apply to single knee, ankle, foot; for foot includes sole/toes/top of foot (DME) night splint See Rx Instructions .Route .MEDSUPPLY Qty: 1 0RF Rx Instructions: As directed (DME) Custom functional orthotics See Rx Instructions .Route .MEDSUPPLY Qty: 1 0RF Rx Instructions: As directed losartan 50 mg Tablet 50 mg PO DAILY 0RF carisoprodol 350 mg Tablet 350 mg PO TID PRN (Reason: Pain) 0RF Lasix 40 mg Tablet 40 mg PO DAILY PRN (Reason: Edema) 0RF potassium chloride 10 mEq Capsule, Extended Release 10 meq PO DAILY 0RF alprazolam 1 mg Tablet 1 mg PO QID PRN (Reason: Anxiety) 0RF trazodone 100 mg Tablet 200 mg PO BEDTIME 0RF pantoprazole 40 mg Tablet,Delayed Release (Dr/Ec) 40 mg PO DAILY 0RF montelukast 10 mg Tablet 10 mg PO DAILY 0RF ergocalciferol (vitamin D2) 50,000 unit Capsule 50,000 unit PO DAILY 0RF topiramate 100 mg Tablet 100 mg PO DAILY 0RF levothyroxine 25 mcg Capsule 25 mcg PO DAILY 0RF Referrals: Philippe Garg MD [Primary Care Provider] - Sign Out Sign Out Data: Patient Sign Out occurred on 08/18/21 at 06:04. Patient's care was discussed, and care was transferred from to Guido Evans DO. Coding Level of Care Code ED Car Construction Superintendent for Tony Fwd Exam Comprehensive
[2021-08-18 05:55] LABS: Basophils % 0.1 %; Hematocrit 40.4 % (37.0-47.0); Lymphocytes # 0.6 10^3/uL (0.8-4.8); Lymphocytes % 6.8 %; Mean Corpuscular HGB Conc 32.2 g/dL (30.0-36.0); Mean Corpuscular Hemoglobin 29.5 pg (28.0-34.0); Mean Corpuscular Volume 91.6 fl (81-99); Mean Platelet Volume 9.1 fL (7.4-10.4); Monocytes # 0.4 10^3/uL (0.2-0.9); Monocytes % 4.5 %; Neutrophils # 8.17 10^3/uL (1.8-7.7); Neutrophils % 87.7 %; Nucleated Red Blood Cells % 0 %; Platelet Count 208 10^3/cmm (130-400); Red Blood Count 4.41 10^6/uL (4.1-5.3); Red Cell Distribution Width 13.1 % (12.1-15.1); White Blood Count 9.3 10^3/uL (4.0-10.0)
[2021-08-18] MEDS: ipratropium-albuterol 3 mL Neb INHALATION ×4 (06:05→20:58)
--- NOTE | 2021-08-18 06:12 | CTR_ITS ---
PROCEDURE INFORMATION: Exam: CTA Chest With Contrast Exam date and time: 08/18/2021 6:12 AM Age: 61 years old Clinical indication: Shortness of breath; Hypoxia/covid TECHNIQUE: Imaging protocol: Computed tomographic angiography of the chest with contrast. 3D rendering (Not supervised by radiologist): MIP and/or 3D reconstructed images were created by the technologist. Radiation optimization: All CT scans at this facility use at least one of these dose optimization techniques: automated exposure control; mA and/or kV adjustment per patient size (includes targeted exams where dose is matched to clinical indication); or iterative reconstruction. Contrast material: VISI; Contrast volume: 65 ml; Contrast route: INTRAVENOUS (IV); COMPARISON: XR CHEST 08/18/2021 5:40 AM RADIATION DOSE METRICS: Total DLP (mGy-cm): 547.99 FINDINGS: Limitations: The study is technically limited by breathing motion artifact. Pulmonary arteries: No sign of acute pulmonary embolism when allowing for breathing motion artifact. Aorta: No thoracic aortic aneurysm or dissection when allowing for pulsation artifact. Lungs: Bilateral, multifocal pulmonary ground-glass opacities compatible with pneumonia, likely COVID-19 pneumonia given the history. Prior pulmonary granulomatous disease. Pleural spaces: No pneumothorax. No pleural effusion. Heart: The heart is not enlarged. No pericardial effusion. There is coronary artery disease. Lymph nodes: Mildly prominent mediastinal and bilateral hilar lymph nodes. Calcified right hilar lymph node from prior granulomatous disease. Bones/joints: No acute osseous abnormality. Soft tissues: No acute soft tissue abnormality. CT/CT angio chest PE protcl [id number] IMPRESSION: 1. No sign of acute pulmonary embolism. 2. Bilateral pneumonia, likely due to COVID-19.
[2021-08-18 06:14] LABS: ABG PCO2 30.6 mmHg (35-45); ABG PH Result 7.46 (7.35-7.45); Arterial Blood Gas Hematocrit 37.7 % (37-47); Base Excess ABG -1.5 mmol/L (-2.0-2.0); Blood Gas Sample Site Radial, left; Blood Gas Sample Type Arterial; HCO3 ABG 21.6 mmol/L (22-26); Oxygen Device NC; PO2 ABG 52.7 mmHg (80.0-100.0)
[2021-08-18 06:14] LABS: D Dimer 1.48 ug/mIFEU (0-0.59)
[2021-08-18] MEDS: diphenhydrAMINE 50 mg/mL SDV 1mL IVP (06:22)
[2021-08-18] MEDS: hydrocortisone 100 mg/2 mL SDV IVP (06:24)
[2021-08-18 06:28] LABS: NT Pro B Type Natriuretic Pept 242 pg/mL (0-125); Procalcitonin 0.28 ng/mL (0-0.5)
[2021-08-18 06:40] LABS: Alanine Aminotransferase 25 U/L (0-33); Albumin Level 3.7 g/dL (3.5-5.2); Alkaline Phosphatase 94 IU/L (35-105); Anion Gap 21.2 (5-19); Aspartate Amino Transferase 47 U/L (0-32); Blood Urea Nitrogen 9 mg/dL (6-20); C Reactive Protein 166.5 mg/L (0.0-4.9); Calcium 8.8 mg/dL (8.5-10.5); Carbon Dioxide 17 mmol/L (22-29); Chloride 101 mmol/L (98-107); Globulin 2.3 g/dL (1.3-4.6); Glomerular Filtration Rate 102.3 mL/min (90-130); Glucose 125 mg/dL (65-115); Lactate Dehydrogenase 783 U/L (135-214); Osmolality Calculated 282 mOsm/kg (285-295); Potassium 3.2 mmol/L (3.5-5.1); Sodium 136 mmol/L (136-145); Total Bilirubin 0.3 mg/dL (0.15-1.2)
[2021-08-18] MEDS: iodixanol 320 mg/mL 100mL Btl IV (07:14)
[2021-08-18 07:25] LABS: Lactic Sepsis W/Reflex 1.3 mmol/L (0.5-2.2)
--- NOTE | 2021-08-18 07:42 | PC.NURSE ---
0700- received report assumed care. No changes noted. Resting with light off. Gone to CT.
--- NOTE | 2021-08-18 07:43 | PC.NURSE ---
Refused Remdesivir, states her physician told her not to take any meds due to all her allergies
[2021-08-18] MEDS: dexamethasone 10 mg/mL INJ 6 MG IVP (08:15)
[2021-08-18 08:16] LABS: ABG PCO2 29.6 mmHg (35-45); ABG PH Result 7.47 (7.35-7.45); Alveolar-Arterial Oxygen Gradi 38.7 mmHg (5-10); Arterial Blood Gas Hematocrit 38.7 % (37-47); Base Excess ABG -1.4 mmol/L (-2.0-2.0); Blood Gas Allen Test Pos; Blood Gas Operator Identificat BD; Blood Gas Sample Site Brachial, right; Blood Gas Sample Type Arterial; Carboxyhemoglobin 0.6 %THgb (0.4-20.1); HCO3 ABG 21.4 mmol/L (22-26); HGB O2 Sat 90.7 % (95-100); Ionized Calcium Level - ABG 1.2 mmol/L (1.1-1.4); Methemoglobin 0.9 % (0.4-1.5); Oxygen Device NC; Oxygen Saturation ABG 92.1; Potassium Level - ABG 2.9 mmol/L (3.5-5.0); Total Hemoglobin 12.6 g/dL (12-16)
--- NOTE | 2021-08-18 10:01 | USCV_ITS ---
Renetta Uriostegui Age: 61 Gender: F : 1960 Exam Date: 08/18/2021 10:20 Ordering Phys: Tristian Whitman MD Technologist: SAVANNA Exam Location: [facility] [place] Indication: BP: 122 / 80 HR: 88 Rhythm: Sinus Technical Quality: Adequate MEASUREMENTS (Male / Female) Normal Values 2D ECHO LV Diastolic Diameter PLAX 4.8 cm 4.2 - 5.9 / 3.9 - 5.3 cm LV Systolic Diameter PLAX 3.3 cm IVS Diastolic Thickness 1.3 cm 0.6 - 1.0 / 0.6 - 0.9 cm IVS Systolic Thickness 1.3 cm LVPW Diastolic Thickness 0.9 cm 0.6 - 1.0 / 0.6 - 0.9 cm LVPW Systolic Thickness 1.1 cm LVOT Diameter 1.7 cm LV Ejection Fraction 2D Teich 57.3 % LV Ejection Fraction MOD 2C 60.8 % LV Ejection Fraction 2C AL 60.7 % LA Diameter 3.9 cm LA Width 3.1 cm LA Height 4.5 cm RA Width 3.3 cm RA Height 4.7 cm Aorta at Sinotubular Diameter 2.9 cm M-MODE Aortic Annulus Diameter 2.8 cm LA Ao Ratio MM 1.6 MV E Point Septal Separation 0.7 cm DOPPLER AV Peak Velocity 213.0 cm/s LVOT Peak Velocity 91.0 cm/s AV Area Cont Eq vti 1.3 cm squared AV Area Cont Eq pk 1.0 cm squared MV Area PHT 4.2 cm squared Mitral E to A Ratio 0.8 MV E' Velocity 27.5 cm/s Mitral E to MV E' Ratio 5.2 Mitral E to LV E' Lateral Ratio 5.5 Mitral E to LV E' Septal Ratio 4.9 TR Peak Velocity 314.7 cm/s TR Peak Gradient 39.6 mmHg TV Peak E Velocity 67.0 cm/s Right Atrial Pressure 5.0 mmHg Pulmonary Artery Systolic Pressu 44.6 mmHg PV Peak Velocity 145.0 cm/s RV Acceleration Time 0.1 s RV Ejection Time 0.3 s RV AcT/ET 0.2 FINDINGS Left Ventricle Normal left ventricular size, systolic function and wall thickness, with no diagnostic regional wall motion abnormalities. Left ventricular ejection fraction is estimated at 70 %. Normal diastolic function. Right Ventricle Normal right ventricular size and systolic function. Right ventricular systolic pressure 44.6 mmHg. Right Atrium Normal right atrial size. Left Atrium Normal left atrial size. Mitral Valve Structurally normal mitral valve. No mitral valve stenosis. Trace mitral valve regurgitation. Aortic Valve Structurally normal trileaflet aortic valve. No aortic valve stenosis. No aortic valve regurgitation. Tricuspid Valve Structurally normal tricuspid valve. No tricuspid valve stenosis. Mild tricuspid valve regurgitation. Pulmonic Valve Pulmonic valve not well visualized. No pulmonary valve stenosis. Trace pulmonary valve regurgitation. Pericardium No pericardial effusion. Aorta Normal size aortic root and proximal ascending aorta. Normal sized inferior vena cava. CONCLUSIONS 1. Normal left ventricular size, systolic function and wall thickness, with no diagnostic regional wall motion abnormalities. Left ventricular ejection fraction is estimated at 70 %. Normal diastolic function. 2. Mild pulmonary hypertension with pulmonary artery pressure estimated at 45 mm Hg. 3. Mild tricuspid valve regurgitation. 4. No significant change when compared to study dated 02/16/2015. Esperanza Mejia MD (Electronically Signed) Final Date: 20 August 2021 08:25 S
--- NOTE | 2021-08-18 10:07 | PM.HP ---
Providers/Chief Complaint Admitting Physician: Tristian Whitman MD Primary Care Provider: Philippe Garg MD Chief Complaint: SOB History of Present Illness Renetta Uriostegui is a 61 year old female with past medical history of hypertension, hypothyroidism, anxiety who was positive for COVID-19 at an outside clinic last Monday(08/09). Patient has been using her 's oxygen on and off at home for last 3 to 4 days. Getting worse for last 2 days so came to the ER today. In the ER was found to be hypoxic so placed on heated high flow. Review of Systems General: Reports: 10 or more systems reviewed and unremarkable except in HPI and below Const: Denies: fever(s), chills, body aches, change in appetite, change in weight, malaise, night sweats, diaphoresis, change in sleep pattern, daytime sleepiness or snoring Eyes: Denies: change in vision, blurry vision, photophobia, eye discomfort or eye discharge ENMT: Denies: throat pain, enlarged tonsils, hoarseness, mouth pain, oral sores, dry mouth, tinnitus, nasal congestion or post nasal drip Card: Denies: chest pain, palpitations, irregular heart rhythm, edema, swelling of feet/ankles, lightheadedness, syncope, pre-syncope, dyspnea on exertion, orthopnea, leg pain with exertion or acrocyanosis Resp: Denies: dyspnea, productive cough, non-productive cough, wheezing, stridor, pain on inspiration, change in phlegm color, hemoptysis or chest congestion GI: Denies: abdominal pain, nausea, vomiting, hematemesis, coffee ground emesis, dysphagia, heartburn, diarrhea, constipation, bloating, GI cramping, change in bowel habits, pain on defecation, hematochezia or melena : Denies: flank pain, dysuria, urinary frequency, urinary urgency, urinary hesitancy, nocturia or hematuria Musc: Denies: neck pain, back pain, extremity pain, joint pain, joint swelling, joint redness, joint stiffness or limited range of motion Neuro: Denies: headache(s), numbness in extremities, weakness in extremities, sensory changes, lack of coordination, difficulty walking, frequent falls, dizziness, vertigo, confusion, Slurred speech present, difficulty communicating thoughts or seizure-like activity Psych: Denies: anxiety, depression, mood swings, panic attacks, hopelessness or irritability Endo: Denies: polyuria, polydipsia, tired all the time, cold intolerance, excessive sweating, flushing or heat intolerance Aashish/Lymph: Denies: easy bruising or easy bleeding All/Imm: Denies: tongue swelling, facial swelling or acute wheezing Medications/Allergies Home Medications Medication Instructions Recorded Confirmed Last Taken Type alprazolam 1 mg tablet 1 mg PO QID PRN 08/05/19 08/18/21 08/17/21 History carisoprodol 350 mg tablet 350 mg PO TID PRN 08/05/19 08/18/21 08/17/21 History ergocalciferol (vitamin D2) 1,250 50,000 unit PO Q7D 08/05/19 08/18/21 08/17/21 History mcg (50,000 unit) capsule furosemide 40 mg tablet (Lasix) 40 mg PO DAILY PRN 08/05/19 08/18/21 08/17/21 History levothyroxine 25 mcg capsule 25 mcg PO DAILY 08/05/19 08/18/21 08/17/21 History losartan 50 mg tablet 50 mg PO DAILY 08/05/19 08/18/21 08/17/21 History montelukast 10 mg tablet 10 mg PO DAILY 08/05/19 08/18/21 08/17/21 History pantoprazole 40 mg tablet,delayed 40 mg PO DAILY 08/05/19 08/18/21 08/17/21 History release potassium chloride 10 mEq 10 meq PO DAILY 08/05/19 08/18/21 08/17/21 History capsule,extended release topiramate 100 mg tablet 100 mg PO DAILY 08/05/19 08/18/21 08/04/19 History trazodone 100 mg tablet 200 mg PO BEDTIME 08/05/19 08/18/21 08/17/21 History mecobalamin (vitamin B12) 1,000 1,000 mcg PO DAILY 12/17/19 08/18/21 08/17/21 History mcg chewable tablet (B12 Active) night splint #1 ea 02/05/20 08/18/21 Unknown Rx [place] ankle braces, bilateral #1 ea 05/14/20 08/18/21 Unknown Rx Custom functional orthotics #1 ea 06/16/20 08/18/21 Unknown Rx albuterol sulfate 90 mcg/actuation 2 puff INHALATION Q4H PRN 08/18/21 08/18/21 08/17/21 History aerosol inhaler (Ventolin HFA) ascorbic acid (vitamin C) 500 mg 500 mg PO BID 08/18/21 08/18/21 08/17/21 History tablet (Vitamin C) aspirin 81 mg capsule 81 mg PO DAILY 08/18/21 08/18/21 08/17/21 History cefuroxime axetil 250 mg tablet 250 mg PO BID 08/18/21 08/18/21 08/17/21 History fexofenadine 180 mg PO BID 08/18/21 08/18/21 08/17/21 History fexofenadine 180 mg tablet 180 mg PO BID 08/18/21 08/18/21 08/17/21 History ([facility] Allergy) fluticasone propionate 50 1 spray INTRANASAL DAILY 08/18/21 08/18/21 08/17/21 History mcg/actuation nasal spray,suspension magnesium 250 mg tablet 500 mg PO DAILY 08/18/21 08/18/21 08/17/21 History vitamin E acetate 134 mg (200 134 mg PO DAILY 08/18/21 08/18/21 08/17/21 History unit) capsule Allergies Allergy/AdvReac Type Severity Reaction Status Date / Time Everything Allergy ALGY-Swell Uncoded 08/05/19 13:39 Lip/Tongue/Throat Steroids Allergy ALGY-Swell Uncoded 08/05/19 13:38 Lip/Tongue/Throat PFSH Acute PFSH: Medical History (Updated 08/18/21 @ 10:13 by Tristian Whitman MD) Anxiety HTN (hypertension) Hypothyroidism Kidney disease Spinal stenosis Social History (Updated 08/18/21 @ 10:16 by Tristian Whitman MD) Smoking and tobacco status: never smoked Alcohol intake: never Substance/Drug Use: never Caregiver/support person: Yes Lives independently: Yes Household members: spouse Housing: House Marital status: Vitals/I&O/Wt Last Vital Signs Temp 98.9 F 08/18/21 05:21 Pulse 80 08/18/21 08:35 Resp 24 H 08/18/21 08:35 BP 151/79 08/18/21 07:18 Pulse Ox 94 08/18/21 08:35 Weight last 48 hrs Weight 92.079 kg Data : 08/18/21 05:41 08/18/21 05:41 Micro: Microbiology 08/18/21 06:50 Blood Culture - Preliminary Blood SPECIMEN COLLECTED 08/18/21 06:50 Blood Culture - Preliminary Blood SPECIMEN COLLECTED A&P Assessment and plan (1) Acute respiratory failure with hypoxia: Status: Acute (2) COVID-19: Status: Acute (3) HTN (hypertension): Goal blood pressure less than 140/90 mmHg. Continue home dose of losartan. Status: Acute (4) Hypothyroidism: Continue with home dose of levothyroxine. Check TSH. Status: Acute (5) Anxiety: Continue home dose of topiramate, trazodone. Status: Acute Plan Hypoxia secondary to COVID-19 pneumonia: Moderate to severe disease. Currently on heated high flow. Oxygen supplementation keeping saturation over 88%. Dexamethasone 6 mg daily. Baricitinib for 14 days. Remdesivir to finish a 5-day course. Vitamin C, zinc. DuoNebs every 4 hour, budesonide twice daily Pulmonary toilet with incentive spirometry flutter valve. We will monitor inflammatory markers including CRP, D-dimer every 48 hours. If getting elevated will dose Actemra once bacterial infection is ruled out Patient was made aware of the same and he has given verbal consent. D-dimer elevated. CTA negative for pulmonary embolism. For now we will start patient on full dose anticoagulation given high oxygen requirement. For now start with 1 mg/kg body weight Lovenox every 12 hourly. Will monitor for anemia or blood loss. Check sputum culture, procalcitonin, urine Legionella, bacterial antigen, blood culture, MRSA swab, urinalysis. Procalcitonin negative. Low suspicion of bacterial infection for now. Start on oral Levaquin 500 mg daily for 5 days. Given hypoxia will try to keep patient as negative as possible. Echocardiogram. IV Lasix 40 mg stat. Strict input output charting, daily weights. Mechanical soft cardiac diet. Full code. Lovenox will help with DVT prophylaxis. Protonix OPD prophylaxis. Attestations Medical Necessity Statement*: Admission for more than 2 midnights for management of hypoxic respiratory failure secondary COVID-19 pneumonia Time Spent in Patient Care: Greater than 35 minutes Coding Level of Care Code Acute Parts Analyst for [facility] Fwd Diagnoses Acute respiratory failure with hypoxia J96.01 COVID-19 U07.1 Hypothyroidism E03.9 Anxiety F41.9 HTN (hypertension) I10
[2021-08-18 10:31] LABS: NT Pro B Type Natriuretic Pept 226 pg/mL (0-125); Procalcitonin 0.25 ng/mL (0-0.5)
[2021-08-18 10:32] LABS: Thyroid Stimulating Hormone 1.07 uIU/mL (0.27-4.20)
[2021-08-18 10:42] LABS: Iron 12 ug/dL (37-145)
[2021-08-18 11:46] LABS: Creatine Phosphokinase 628 U/L (26-192); Percent Saturation 4.8 % (20-50); Total Iron Binding Capacity 249 mcg/dl; Unsaturated Iron Binding 237 ug/dL (112-347)
[2021-08-18] MEDS: potassium chloride ER 20 mEq Tablet 40 MEQ PO (13:17)
[2021-08-18] MEDS: topiramate 100 mg Tablet PO (13:17)
[2021-08-18] MEDS: levoFLOXacin 500 mg Tablet PO (13:17)
[2021-08-18] MEDS: levothyroxine 25 mcg Tablet PO (13:17)
[2021-08-18] MEDS: losartan 50 mg Tablet PO (13:18)
[2021-08-18] MEDS: dexamethasone 4 mg/mL INJ 6 MG IVP (13:18)
[2021-08-18] MEDS: zinc gluconate 50 mg Tablet PO (13:18)
[2021-08-18] MEDS: enoxaparin 100 mg/mL Syringe 90 MG SUBCUT (13:18)
[2021-08-18] MEDS: pantoprazole DR 40 mg Tablet PO (13:18)
[2021-08-18] MEDS: aspirin 81 mg EC Tablet PO (13:18)
[2021-08-18 14:39] LABS: Add Urine Microscopic? NO; Charge for UA Resulting for Rev
[2021-08-18 15:03] LABS: Specific Gravity, Urine 1.005 (1.005-1.030); Urine Appearance Clear (CLEAR); Urine Color Straw (Yellow); pH Urine 7 (5-7)
[2021-08-18 15:04] LABS: Bilirubin Urine Neg (Negative); Blood Urine Neg (Negative); Glucose Urine UA Norm (Normal); Ketones Urine Negative (Negative); Leukocyte Esterase Urine Negative (Negative); Nitrate Urine Negative (Negative); Protein Urine Neg (Negative); Urobilinogen Urine Norm (Negative)
[2021-08-18] MEDS: FUROsemide 10 mg/mL SDV 4mL 40 MG IVP ×2 (16:13→16:30)
[2021-08-18] MEDS: benzonatate 100 mg Capsule PO ×2 (16:13→22:30)
[2021-08-18] MEDS: fexofenadine 60 mg Tablet 180 MG PO (19:48)
[2021-08-18] MEDS: ascorbic acid 500 mg Tablet PO (19:48)
[2021-08-18] MEDS: ferrous gluconate 324 mg Tablet PO (19:48)
[2021-08-18] MEDS: budesonide 0.5 mg/2 mL Neb INHALATION (20:58)
[2021-08-18] MEDS: trazodone 100 mg Tablet 200 MG PO (22:30)
[2021-08-19] VITALS (32 sets, daily range): BP systolic 100–134; BP diastolic 54–70; PULSE 54–88; RESP 15–35; TEMP 36.4–37.1; O2SAT 86–96; BMI 32.8
[2021-08-19] MEDS: ipratropium-albuterol 3 mL Neb INHALATION ×6 (00:13→21:47)
[2021-08-19] MEDS: enoxaparin 100 mg/mL Syringe 90 MG SUBCUT ×3 (01:46→22:31)
[2021-08-19] MEDS: acetaminophen 325 mg Tablet 650 MG PO (02:43)
[2021-08-19 04:28] LABS: Basophils % 0.1 %; Hemoglobin 12.3 g/dL (11.5-15.3); Lymphocytes # 1.1 10^3/uL (0.8-4.8); Lymphocytes % 12.7 %; Mean Corpuscular HGB Conc 34.2 g/dL (30.0-36.0); Mean Corpuscular Hemoglobin 30.1 pg (28.0-34.0); Mean Platelet Volume 8.9 fL (7.4-10.4); Monocytes # 0.5 10^3/uL (0.2-0.9); Monocytes % 6.3 %; Neutrophils # 6.62 10^3/uL (1.8-7.7); Neutrophils % 79.7 %; Nucleated Red Blood Cells % 0 %; Platelet Count 255 10^3/cmm (130-400); Red Blood Count 4.09 10^6/uL (4.1-5.3); Red Cell Distribution Width 13.1 % (12.1-15.1); White Blood Count 8.3 10^3/uL (4.0-10.0)
[2021-08-19 04:48] LABS: D Dimer 1.78 ug/mIFEU (0-0.59)
[2021-08-19 04:52] LABS: Alanine Aminotransferase 26 U/L (0-33); Albumin Level 3.3 g/dL (3.5-5.2); Alkaline Phosphatase 80 IU/L (35-105); Anion Gap 18.1 (5-19); Aspartate Amino Transferase 52 U/L (0-32); Blood Urea Nitrogen 12 mg/dL (6-20); Calcium 9.2 mg/dL (8.5-10.5); Carbon Dioxide 19 mmol/L (22-29); Chloride 104 mmol/L (98-107); Globulin 2.7 g/dL (1.3-4.6); Glomerular Filtration Rate 126.3 mL/min (90-130); Glucose 148 mg/dL (65-115); Osmolality Calculated 289 mOsm/kg (285-295); Potassium 3.1 mmol/L (3.5-5.1); Sodium 138 mmol/L (136-145); Total Bilirubin 0.2 mg/dL (0.15-1.2)
[2021-08-19 04:55] LABS: C Reactive Protein 172.4 mg/L (0.0-4.9); Magnesium 2.2 mg/dL (1.7-2.3); Phosphorus 2.7 mg/dL (2.5-4.5)
--- NOTE | 2021-08-19 06:00 | XR_ITS ---
WS: [id number] PORTABLE CHEST HISTORY: Short of breath and coughing. Positive Covid. COMPARISON: 08/18/2021 Lungs are hyperinflated. Progression of bilateral diffuse interstitial thickening. No dense areas of consolidation. No pleural effusion or pneumothorax. Cardiac size: Mildly enlarged cardiac silhouette. Mediastinum/Aorta: Normal mediastinum. No osseous abnormality seen. XR/XR chest 1V portable [id number] IMPRESSION: 1. Progression of diffuse interstitial thickening since the prior study. Diffe rential includes pneumonitis and pulmonary edema. 2. Mild cardiomegaly.
[2021-08-19] MEDS: remdesivir 100 MG in sodium chloride 0.9% (100 ml) 100 ML IV (06:12)
[2021-08-19] MEDS: levoFLOXacin 500 mg Tablet PO (06:12)
[2021-08-19 06:34] LABS: ABG PCO2 32.4 mmHg (35-45); ABG PH Result 7.45 (7.35-7.45); Base Excess ABG -0.7 mmol/L (-2.0-2.0); Blood Gas Allen Test Pos; Blood Gas Sample Type Arterial; Carboxyhemoglobin 0.4 %THgb (0.4-20.1); HCO3 ABG 22.6 mmol/L (22-26); Ionized Calcium Level - ABG 1.2 mmol/L (1.1-1.4); Methemoglobin 0.7 % (0.4-1.5); PO2 ABG 62.2 mmHg (80.0-100.0); Total Hemoglobin 13.1 g/dL (12-16)
[2021-08-19 06:36] LABS: Alveolar-Arterial Oxygen Gradi 42.6 mmHg (5-10); Blood Gas Operator Identificat JB; Blood Gas Sample Site Radial, right; Oxygen Device BIPAP
[2021-08-19] MEDS: budesonide 0.5 mg/2 mL Neb INHALATION ×2 (08:42→21:47)
[2021-08-19] MEDS: aspirin 81 mg EC Tablet PO (09:12)
[2021-08-19] MEDS: FUROsemide 10 mg/mL SDV 4mL 40 MG IVP (09:12)
[2021-08-19] MEDS: pantoprazole DR 40 mg Tablet PO (09:12)
[2021-08-19] MEDS: zinc gluconate 50 mg Tablet PO (09:12)
[2021-08-19] MEDS: ferrous gluconate 324 mg Tablet PO ×2 (09:13→17:26)
[2021-08-19] MEDS: ascorbic acid 500 mg Tablet PO ×2 (09:13→17:26)
[2021-08-19] MEDS: losartan 50 mg Tablet PO (09:13)
[2021-08-19] MEDS: montelukast sodium 10 mg Tablet PO (09:13)
[2021-08-19] MEDS: levothyroxine 25 mcg Tablet PO (09:13)
[2021-08-19] MEDS: benzonatate 100 mg Capsule PO ×3 (09:13→20:45)
[2021-08-19] MEDS: topiramate 100 mg Tablet PO (09:15)
--- NOTE | 2021-08-19 10:21 | PC.NURSE ---
RN CALLED ABOUT PATIENTS MEDS THAT ARE COMING FROM PHARMACY
--- NOTE | 2021-08-19 10:25 | PC.NURSE ---
PATIENT DAUGHTER (BENTON) UPDATED VIA PHONE CALL WITH PERMISSION OF THE PATIENT.
--- NOTE | 2021-08-19 10:27 | PC.NURSE ---
PATIENT ON CONTINUOUS BEDSIDE CARDIAC, BP AND O2 MONITOR.
--- NOTE | 2021-08-19 10:42 | PC.NURSE ---
PATIENT TAKEN OFF OF BIPAP AND PUT ON HEATED HIGH FLOW PER DR. GARAY. PT NOW SATING AT 88% ON HEATED HIGH AND FLOW AND COMPLINING OF SHORTNESS OF BREATH. DR. CRUZ MADE AWARE AND SAID THAT THE PATIENTS OXYGENATION WAS OKAY. PATIENT TO STAY ON HEATED HIGH FLOW.
[2021-08-19] MEDS: fluticasone nasal spray 16gm Btl 1 SPRAY INTRANASAL (11:12)
[2021-08-19] MEDS: dexamethasone 4 mg/mL INJ 6 MG IVP (11:13)
[2021-08-19] MEDS: fexofenadine 60 mg Tablet 180 MG PO (11:13)
--- NOTE | 2021-08-19 13:59 | P.PN_ITS ---
Subjective Subjective: Interval history: This morning patient was seen on heated high flow. Overnight patient had episode of desaturation and her saturation fell down to 85 and she was placed on BiPAP in the ER. Today morning discussed with the patient and RN that saturation up to 87% is acceptable and it is okay to keep patient on heated high flow so she can work with incentive spirometry flutter valve. Patient is working with I-S and Acapella every 1 hour when not on BiPAP. States she is feeling worn out. We did discuss that some days will be good and some days will be bad. We did discuss importance for semiproning, continuous I-S and Acapella and importance of getting out of bed. Verbalized understanding. Vitals/I&O/Wt Last Vital Signs Temp 97.6 F 08/19/21 12:54 Pulse 71 08/19/21 13:43 Resp 33 H 08/19/21 13:43 BP 117/59 08/19/21 13:43 Pulse Ox 95 08/19/21 13:43 08/18/21 08/19/21 08/19/21 22:59 06:59 14:59 Intake Total 25 / 25 200 / 200 Output Total 1000 / 1000 Balance -975 / -975 200 / 200 Weight last 48 hrs Weight 92.079 kg Physical Exam Narrative: EXAM NARRATIVE: General: In mild distress secondary to above difficulty in breathing, on heated high flow AO x3, tired, mildly tachypneic HEENT: PERRLA, pupils bilaterally equal and reactive Chest: Bronchial type breath sounds bilaterally, coarse crackles present bilaterally, equal good air entry bilaterally CVS: S1-S2 regular, no murmurs, no tachycardia, no gallops, no rubs Abdomen: Soft, nontender, no organomegaly, bowel sounds present Neuro: No focal deficits, no facial deformity, AO x3, power 5/5 in all limbs Urinary Catheter Management: Gomez: Cath Placed During This Visit: yes Reason for Continuing Indwelling Catheter: Accurate Measurement of Urinary Output in Critically Ill Patients Urinary Catheter Date of Insertion: 08/18/21 Urinary Catheter Time of Insertion: 14:00 Data : 08/19/21 04:08 08/19/21 04:08 Micro: Microbiology 08/18/21 12:49 Gram Stain - Final Sputum - Expectorated Sputum 08/18/21 14:08 Bacterial Antigens - Final Urine Kidney 08/18/21 06:50 Blood Culture - Preliminary Blood NEGATIVE TO DATE 08/18/21 06:50 Blood Culture - Preliminary Blood NEGATIVE TO DATE 08/18/21 14:08 Legionella Urinary Antigen - Final Urine Catheterized A&P Assessment and plan (1) Acute respiratory failure with hypoxia: Status: Acute (2) COVID-19: Status: Acute (3) HTN (hypertension): Goal blood pressure less than 140/90 mmHg. Continue home dose of losartan. Status: Acute (4) Hypothyroidism: Continue with home dose of levothyroxine. TSH appreciated. Status: Acute (5) Anxiety: Continue home dose of topiramate, trazodone. Status: Acute Plan Hypoxia respiratory failure secondary to COVID-19 pneumonia: Moderate to severe disease. Currently on heated high flow. Oxygen supplementation keeping saturation over 88%. Dexamethasone 6 mg daily. Patient inflammatory markers still elevated. We will give 1 dose of Actemra. Continue above barcitinib Remdesivir to finish a 5-day course. Vitamin C, zinc. DuoNebs every 4 hour, budesonide twice daily Pulmonary toilet with incentive spirometry flutter valve. We will monitor inflammatory markers including CRP, D-dimer every 48 hours. D-dimer elevated. CTA negative for pulmonary embolism. For now we will start patient on full dose anticoagulation given high oxygen requirement. For now start with 1 mg/kg body weight Lovenox every 12 hourly. Will monitor for anemia or blood loss. Sputum culture pending., procalcitonin, urine Legionella bacterial antigen negative. Urinalysis not concerning for any UTI. Low suspicion of bacterial pneumonia. Continue with oral Levaquin for finish a 5-day course. Given hypoxia will try to keep patient as negative as possible. Echocardiogram. Repeat IV Lasix. Overall 775 cc net negative since admission. Replace potassium Strict input output charting, daily weights. Back pain: Chronic. Discussed with patient no need of pain management. Patient is declining any kind of pain management currently. She does not want fentanyl patch or tramadol or narcotics. Agreed for IV Tylenol. Continue other chronic oral home medications. Out of bed to chair. Mechanical soft cardiac diet. Full code. Lovenox will help with DVT prophylaxis. Protonix OPD prophylaxis. Attestations Medical Necessity Statement*: Requires further hospitalization for management of hypoxic respiratory failure secondary COVID-19 pneumonia Time Spent in Patient Care: Greater than 35 minutes Coding Level of Care Code Acute Film Vault Supervisor for [facility] Fwd Diagnoses Acute respiratory failure with hypoxia J96.01 COVID-19 U07.1 HTN (hypertension) I10 Hypothyroidism E03.9 Anxiety F41.9
[2021-08-19] MEDS: potassium chloride ER 20 mEq Tablet 40 MEQ PO ×3 (14:41→19:17)
[2021-08-19] MEDS: acetaminophen 1,000 MG/100 ML PIGGYBACK 400 MG IV (14:42)
[2021-08-19] MEDS: trazodone 100 mg Tablet 200 MG PO (20:45)
[2021-08-20] VITALS (19 sets, daily range): BP systolic 104–139; BP diastolic 65–79; PULSE 68–94; RESP 16–28; TEMP 36.7–37.4; O2SAT 88–96
[2021-08-20] MEDS: ipratropium-albuterol 3 mL Neb INHALATION ×6 (00:26→21:17)
[2021-08-20] MEDS: fluticasone nasal spray 16gm Btl 2 SPRAY NASAL (01:19)
[2021-08-20] MEDS: lanolin oint 7 gm 1 APPLIC TOPICAL (02:34)
[2021-08-20] MEDS: remdesivir 100 MG in sodium chloride 0.9% (100 ml) 100 ML IV (05:48)
[2021-08-20] MEDS: levoFLOXacin 500 mg Tablet PO (05:49)
[2021-08-20] MEDS: budesonide 0.5 mg/2 mL Neb INHALATION ×2 (08:44→21:18)
[2021-08-20] MEDS: bisacodyl 5 mg Tablet 10 MG PO (08:47)
[2021-08-20] MEDS: topiramate 100 mg Tablet PO (08:47)
[2021-08-20] MEDS: pantoprazole DR 40 mg Tablet PO (08:47)
[2021-08-20] MEDS: alum-mag-hydroxide-sime 30 mL UDC 15 ML PO ×2 (08:47→13:29)
[2021-08-20] MEDS: losartan 50 mg Tablet PO (08:47)
[2021-08-20] MEDS: montelukast sodium 10 mg Tablet PO (08:47)
[2021-08-20] MEDS: levothyroxine 25 mcg Tablet PO (08:47)
[2021-08-20] MEDS: ferrous gluconate 324 mg Tablet PO ×2 (08:47→18:58)
[2021-08-20] MEDS: zinc gluconate 50 mg Tablet PO (08:48)
[2021-08-20] MEDS: aspirin 81 mg EC Tablet PO (08:48)
[2021-08-20] MEDS: ascorbic acid 500 mg Tablet PO ×2 (08:48→18:58)
[2021-08-20] MEDS: benzonatate 100 mg Capsule PO (08:48)
[2021-08-20 10:54] LABS: Basophils % 0.1 %; Eosinophils % 0.3 %; Hematocrit 36.2 % (37.0-47.0); Hemoglobin 11.9 g/dL (11.5-15.3); Lymphocytes # 1.5 10^3/uL (0.8-4.8); Lymphocytes % 14.1 %; Mean Corpuscular HGB Conc 32.9 g/dL (30.0-36.0); Mean Corpuscular Hemoglobin 29.8 pg (28.0-34.0); Mean Corpuscular Volume 90.5 fl (81-99); Mean Platelet Volume 8.9 fL (7.4-10.4); Monocytes # 0.6 10^3/uL (0.2-0.9); Monocytes % 5.8 %; Neutrophils # 8.21 10^3/uL (1.8-7.7); Neutrophils % 77.4 %; Nucleated Red Blood Cells % 0 %; Platelet Count 318 10^3/cmm (130-400); White Blood Count 10.6 10^3/uL (4.0-10.0)
[2021-08-20 11:28] LABS: Alanine Aminotransferase 28 U/L (0-33); Alkaline Phosphatase 86 IU/L (35-105); Anion Gap 17.5 (5-19); Aspartate Amino Transferase 50 U/L (0-32); Blood Urea Nitrogen 17 mg/dL (6-20); Carbon Dioxide 19 mmol/L (22-29); Chloride 105 mmol/L (98-107); Globulin 2.6 g/dL (1.3-4.6); Glomerular Filtration Rate 102.3 mL/min (90-130); Glucose 109 mg/dL (65-115); Osmolality Calculated 288 mOsm/kg (285-295); Potassium 3.5 mmol/L (3.5-5.1); Sodium 138 mmol/L (136-145); Total Bilirubin 0.2 mg/dL (0.15-1.2); Total Protein 5.6 g/dL (6.6-8.7)
[2021-08-20 11:35] LABS: Procalcitonin 0.14 ng/mL (0-0.5)
[2021-08-20] MEDS: dexamethasone 4 mg/mL INJ 6 MG IVP (12:01)
[2021-08-20] MEDS: fexofenadine 60 mg Tablet 180 MG PO ×2 (12:01→18:57)
[2021-08-20] MEDS: enoxaparin 100 mg/mL Syringe 90 MG SUBCUT ×2 (12:02→21:47)
[2021-08-20] MEDS: ondansetron 2 mg/ML SDV 2 mL 4 MG IVP ×2 (12:03→19:33)
--- NOTE | 2021-08-20 12:16 | P.PN_ITS ---
Subjective Subjective: Interval history: No acute events overnight. Patient has remained hemodynamically stable. States had a rough night because of cough. Denies any nausea, vomiting, headache. Complaining of constipation. Laying in left lateral position. Saturating 90%. Currently on 45 L 60%. Vitals/I&O/Wt Last Vital Signs Temp 98.3 F 08/20/21 08:00 Pulse 81 08/20/21 11:58 Resp 22 H 08/20/21 11:57 BP 139/78 08/20/21 08:47 Pulse Ox 88 L 08/20/21 11:57 08/19/21 08/20/21 08/20/21 22:59 06:59 14:59 Intake Total 100 / 300 100 / 400 Output Total 700 / 700 Balance 100 / 300 -600 / -300 Weight last 48 hrs Weight 102.376 kg Weight 92.079 kg Physical Exam Narrative: EXAM NARRATIVE: General: In mild distress secondary to above difficulty in breathing, on heated high flow AO x3, tired, mildly tachypneic HEENT: PERRLA, pupils bilaterally equal and reactive Chest: Bronchial type breath sounds bilaterally, coarse crackles present bilaterally, equal good air entry bilaterally CVS: S1-S2 regular, no murmurs, no tachycardia, no gallops, no rubs Abdomen: Soft, nontender, no organomegaly, bowel sounds present Neuro: No focal deficits, no facial deformity, AO x3, power 5/5 in all limbs Urinary Catheter Management: Gomez: Cath Placed During This Visit: yes Reason for Continuing Indwelling Catheter: Acute Urinary Retention or Obstruction Urinary Catheter Date of Insertion: 08/18/21 Urinary Catheter Time of Insertion: 14:00 Data : 08/20/21 10:41 08/20/21 10:41 Micro: Microbiology 08/18/21 12:49 Gram Stain - Final Sputum - Expectorated Sputum Sputum Culture - Preliminary 08/19/21 06:18 MRSA Culture - Final Nose 08/18/21 14:08 Bacterial Antigens - Final Urine Kidney 08/18/21 06:50 Blood Culture - Preliminary Blood NEGATIVE TO DATE 08/18/21 06:50 Blood Culture - Preliminary Blood NEGATIVE TO DATE A&P Assessment and plan (1) Acute respiratory failure with hypoxia: Status: Acute (2) COVID-19: Status: Acute (3) HTN (hypertension): Goal blood pressure less than 140/90 mmHg. Continue home dose of losartan. Status: Acute (4) Hypothyroidism: Continue with home dose of levothyroxine. TSH appreciated. Status: Acute (5) Anxiety: Continue home dose of topiramate, trazodone. Status: Acute Plan Hypoxia respiratory failure secondary to COVID-19 pneumonia: Moderate to severe disease. Currently on heated high flow. Oxygen supplementation keeping saturation over 88%. Dexamethasone 6 mg daily. Post 1 dose Actemra on 08/19. Continue with baricitinib Remdesivir to finish a 5-day course. Vitamin C, zinc. DuoNebs every 4 hour, budesonide twice daily Pulmonary toilet with incentive spirometry flutter valve. We will monitor inflammatory markers including CRP, D-dimer every 48 hours. D-dimer elevated. CTA negative for pulmonary embolism. For now we will start patient on full dose anticoagulation given high oxygen requirement. For now start with 1 mg/kg body weight Lovenox every 12 hourly. Will monitor for anemia or blood loss. Sputum culture pending, procalcitonin, urine Legionella bacterial antigen negative. Urinalysis not concerning for any UTI. Low suspicion of bacterial pneumonia. Continue with oral Levaquin for finish a 5-day course. Given hypoxia will try to keep patient as negative as possible. Echocardiogram shows an EF of 70% without any regional motion abnormality, normal diastolic dysfunction, RVSP of 45. Repeat IV Lasix. Overall 1275 cc net negative since admission. Replace potass ium Strict input output charting, daily weights. Back pain: Chronic. Discussed with patient no need of pain management. Patient is declining any kind of pain management currently. She does not want fentanyl patch or tramadol or narcotics. Agreed for IV Tylenol. Continue other chronic oral home medications. Out of bed to chair. Mechanical soft cardiac diet. Full code. Lovenox will help with DVT prophylaxis. Protonix OPD prophylaxis. Plan for day: Continue remdesivir, dexamethasone. Aggressive pulmonary toilet. IV Lasix. Out of bed to chair. Bowel regimen with MiraLAX and milk of asuncion smithremigio. Patient's daughter Ms. Hoyt updated over the phone. All the questions were answered. Attestations Medical Necessity Statement*: Requires further hospitalization for hypoxic respiratory failure secondary to COVID-19 pneumonia Time Spent in Patient Care: Greater than 35 minutes Coding Level of Care Code Acute Diabetes Educator for [facility] Fwd Diagnoses Acute respiratory failure with hypoxia J96.01 COVID-19 U07.1 HTN (hypertension) I10 Hypothyroidism E03.9 Anxiety F41.9
[2021-08-20 12:53] LABS: C Reactive Protein 58.3 mg/L (0.0-4.9)
[2021-08-20] MEDS: FUROsemide 10 mg/mL SDV 4mL 40 MG IVP (13:29)
[2021-08-20 13:37] LABS: D Dimer 4.38 ug/mIFEU (0-0.59)
[2021-08-20] MEDS: polyethylene glycol 3350 Pkt 17 gm PO ×2 (18:57→19:03)
[2021-08-20] MEDS: benzonatate 100 mg Capsule 200 MG PO ×2 (18:58→21:04)
[2021-08-20] MEDS: magnesium hydroxide 30 mL UDC PO (18:58)
[2021-08-20] MEDS: trazodone 100 mg Tablet 200 MG PO (21:04)
[2021-08-20] MEDS: lactulose oral liq 20 gm/30 mL UDC 10 GM PO (21:45)
[2021-08-21] VITALS (22 sets, daily range): BP systolic 103–150; BP diastolic 63–82; PULSE 64–88; RESP 16–24; TEMP 36.7–37.6; O2SAT 88–95
[2021-08-21] MEDS: ipratropium-albuterol 3 mL Neb INHALATION ×6 (00:06→19:26)
[2021-08-21] MEDS: fluticasone nasal spray 16gm Btl 2 SPRAY NASAL (04:35)
[2021-08-21 05:26] LABS: Basophils % 0.2 %; Eosinophils # 0.1 10^3/uL (0.0-0.8); Eosinophils % 0.6 %; Hematocrit 37.3 % (37.0-47.0); Lymphocytes % 15.9 %; Mean Corpuscular HGB Conc 32.2 g/dL (30.0-36.0); Mean Corpuscular Hemoglobin 29.2 pg (28.0-34.0); Mean Corpuscular Volume 90.8 fl (81-99); Mean Platelet Volume 9.2 fL (7.4-10.4); Monocytes # 0.6 10^3/uL (0.2-0.9); Monocytes % 4.9 %; Neutrophils # 9.28 10^3/uL (1.8-7.7); Neutrophils % 74.2 %; Nucleated Red Blood Cells % 0.2 %; Platelet Count 335 10^3/cmm (130-400); Red Blood Count 4.11 10^6/uL (4.1-5.3); Red Cell Distribution Width 12.9 % (12.1-15.1); White Blood Count 12.5 10^3/uL (4.0-10.0)
[2021-08-21] MEDS: remdesivir 100 MG in sodium chloride 0.9% (100 ml) 100 ML IV (05:38)
[2021-08-21] MEDS: levoFLOXacin 500 mg Tablet PO (05:38)
[2021-08-21 05:47] LABS: Alanine Aminotransferase 29 U/L (0-33); Alkaline Phosphatase 92 IU/L (35-105); Anion Gap 15.9 (5-19); Aspartate Amino Transferase 45 U/L (0-32); Blood Urea Nitrogen 18 mg/dL (6-20); Calcium 8.7 mg/dL (8.5-10.5); Carbon Dioxide 20 mmol/L (22-29); Chloride 103 mmol/L (98-107); Globulin 2.7 g/dL (1.3-4.6); Glomerular Filtration Rate 102.3 mL/min (90-130); Glucose 87 mg/dL (65-115); Osmolality Calculated 281 mOsm/kg (285-295); Potassium 3.9 mmol/L (3.5-5.1); Sodium 135 mmol/L (136-145); Total Bilirubin 0.3 mg/dL (0.15-1.2); Total Protein 5.7 g/dL (6.6-8.7)
[2021-08-21 05:50] LABS: D Dimer 3.92 ug/mIFEU (0-0.59)
[2021-08-21] MEDS: acetaminophen 325 mg Tablet 650 MG PO (05:52)
--- NOTE | 2021-08-21 06:00 | XRR_ITS ---
PROCEDURE INFORMATION: Exam: XR Chest Exam date and time: 08/21/2021 6:00 AM Age: 61 years old Clinical indication: Shortness of breath; Additional info: Covid TECHNIQUE: Imaging protocol: XR of the chest. Views: 1 view. COMPARISON: CR XR chest 1V portable [id number] 08/19/2021 5:54 AM FINDINGS: Lungs: There are diffuse bilateral interstitial pulmonary infiltrates consistent with viral pneumonia. They are increasing in prominence since previous study. Pleural spaces: Unremarkable. No pleural effusion. No pneumothorax. Heart/Mediastinum: Unremarkable. No cardiomegaly. Bones/joints: Unremarkable. XR/XR chest 1V portable [id number] IMPRESSION: Worsening bilateral interstitial pulmonary infiltrates.
[2021-08-21] MEDS: budesonide 0.5 mg/2 mL Neb INHALATION ×2 (08:17→19:26)
--- NOTE | 2021-08-21 08:32 | PC.SOCIAL ---
IMM update IMM updated with patient. Verbalized an understanding. Initialled, dated, timed, and placed in chart.
[2021-08-21] MEDS: zinc gluconate 50 mg Tablet PO (09:55)
[2021-08-21] MEDS: levothyroxine 25 mcg Tablet PO (09:55)
[2021-08-21] MEDS: pantoprazole DR 40 mg Tablet PO (09:55)
[2021-08-21] MEDS: benzonatate 100 mg Capsule 200 MG PO ×2 (09:55→20:33)
[2021-08-21] MEDS: montelukast sodium 10 mg Tablet PO (09:55)
[2021-08-21] MEDS: aspirin 81 mg EC Tablet PO (09:55)
[2021-08-21] MEDS: losartan 50 mg Tablet PO (09:55)
[2021-08-21] MEDS: ferrous gluconate 324 mg Tablet PO ×2 (09:55→18:10)
[2021-08-21] MEDS: ascorbic acid 500 mg Tablet PO ×2 (09:55→18:10)
[2021-08-21] MEDS: topiramate 100 mg Tablet PO (09:55)
[2021-08-21] MEDS: fexofenadine 60 mg Tablet 180 MG PO ×2 (09:55→18:11)
[2021-08-21] MEDS: fluticasone nasal spray 16gm Btl 1 SPRAY INTRANASAL (09:56)
[2021-08-21] MEDS: enoxaparin 100 mg/mL Syringe 90 MG SUBCUT ×2 (10:00→21:30)
[2021-08-21] MEDS: dexamethasone 4 mg/mL INJ 6 MG IVP (10:00)
--- NOTE | 2021-08-21 17:42 | PM.PN ---
Subjective Subjective: Interval history: No acute events overnight. Denies any nausea, vomiting, headache. On examination seen with daughter at bedside. Getting up from bed to chair. Desaturated to mid 80s for few seconds and came back up to 89% within 10 seconds. Oxygen supplementation has been improving very gradually though slowly. Asking to have a bed bath. Complaining of back pain but does not want any pain medications. Agreeable to IV Tylenol. Had a bowel movement today. Denies any further heartburn. Vitals/I&O/Wt Last Vital Signs Temp 98.1 F 08/21/21 16:00 Pulse 67 08/21/21 16:00 Resp 18 08/21/21 16:00 BP 148/76 08/21/21 16:00 Pulse Ox 93 08/21/21 16:00 08/21/21 08/21/21 08/21/21 06:59 14:59 22:59 Intake Total 120 / 240 600 / 600 240 / 840 Output Total 450 / 2650 1300 / 1300 Balance -330 / -2410 600 / 600 -1060 / -460 Weight last 48 hrs Weight 102.376 kg Physical Exam Narrative: EXAM NARRATIVE: General: In mild distress secondary to above difficulty in breathing, on heated high flow AO x3, tired, mildly tachypneic but improving from before HEENT: PERRLA, pupils bilaterally equal and reactive Chest: Bronchial type breath sounds bilaterally, coarse crackles present bilaterally, equal good air entry bilaterally CVS: S1-S2 regular, no murmurs, no tachycardia, no gallops, no rubs Abdomen: Soft, nontender, no organomegaly, bowel sounds present Neuro: No focal deficits, no facial deformity, AO x3, power 5/5 in all limbs Urinary Catheter Management: Gomez: Cath Placed During This Visit: yes Reason for Continuing Indwelling Catheter: Acute Urinary Retention or Obstruction Urinary Catheter Date of Insertion: 08/18/21 Urinary Catheter Time of Insertion: 14:00 Data : 08/21/21 04:45 08/21/21 04:45 Micro: Microbiology 08/18/21 12:49 Gram Stain - Final Sputum - Expectorated Sputum Sputum Culture - Final A&P Assessment and plan (1) Acute respiratory failure with hypoxia: Status: Acute (2) COVID-19: Status: Acute (3) HTN (hypertension): Goal blood pressure less than 140/90 mmHg. Continue home dose of losartan. Status: Acute (4) Hypothyroidism: Continue with home dose of levothyroxine. TSH appreciated. Status: Acute (5) Anxiety: Continue home dose of topiramate, trazodone. Status: Acute Plan Hypoxia respiratory failure secondary to COVID-19 pneumonia: Moderate to severe disease. Currently on heated high flow. Oxygen supplementation keeping saturation over 88%. Dexamethasone 6 mg daily. Post 1 dose Actemra on 08/19. Continue with baricitinib to finish a 14-day course. Remdesivir to finish a 5-day course. Vitamin C, zinc. DuoNebs every 4 hour, budesonide twice daily Pulmonary toilet with incentive spirometry flutter valve. We will monitor inflammatory markers including CRP, D-dimer every 48 hours. D-dimer elevated. CTA negative for pulmonary embolism. For now we will continue with full dose anticoagulation with Lovenox 1 mg/kg body weight every 12 hourly given high oxygen requirement. Will monitor for anemia or blood loss. Sputum culture pending, procalcitonin, urine Legionella bacterial antigen negative. Urinalysis not concerning for any UTI. Low suspicion of bacterial pneumonia. Continue with oral Levaquin for finish a 5-day course. Given hypoxia will try to keep patient as negative as possible. Echocardiogram shows an EF of 70% without any regional motion abnormality, normal diastolic dysfunction, RVSP of 45. Hold off on Lasix for today. Overall over 4 L cc net negative since admission. Replace potassium Strict input output charting, daily weights. Back pain: Chronic. Discussed with patient no need of pain management. Patient is declining any kind of pain management currently. She does not want fentanyl patch or tramadol or narcotics. Agreed for IV Tylenol. Continue other chronic oral home medications. Out of bed to chair. Mechanical soft cardiac diet. Full code. Lovenox will help with DVT prophylaxis. Protonix OPD prophylaxis. Patient's daughter Ms. Hoyt updated over the phone. All the questions were answered. Attestations Medical Necessity Statement*: Hospitalization for management of hypoxic respiratory failure secondary COVID-19 pneumonia Time Spent in Patient Care: Greater than 35 minutes Coding Level of Care Code Acute Therapeutic Massage Technician for [facility] Fw Diagnoses Acute respiratory failure with hypoxia J96.01 COVID-19 U07.1 HTN (hypertension) I10 Hypothyroidism E03.9 Anxiety F41.9
[2021-08-21] MEDS: polyethylene glycol 3350 Pkt 17 gm PO (20:34)
[2021-08-21] MEDS: trazodone 100 mg Tablet 200 MG PO (20:34)
[2021-08-21] MEDS: guaiFENesin-dextromethorphan UDC 10 mL 5 ML PO (23:57)
[2021-08-22] VITALS (12 sets, daily range): BP systolic 104–150; BP diastolic 66–83; PULSE 72–93; RESP 16–20; TEMP 36.6–37.2; O2SAT 88–95
[2021-08-22 05:16] LABS: Basophils % 0.3 %; Eosinophils # 0.2 10^3/uL (0.0-0.8); Eosinophils % 1.2 %; Hematocrit 36.9 % (37.0-47.0); Hemoglobin 12.1 g/dL (11.5-15.3); Lymphocytes # 1.8 10^3/uL (0.8-4.8); Lymphocytes % 13.7 %; Mean Corpuscular HGB Conc 32.8 g/dL (30.0-36.0); Mean Corpuscular Hemoglobin 29.3 pg (28.0-34.0); Mean Corpuscular Volume 89.3 fl (81-99); Mean Platelet Volume 9.1 fL (7.4-10.4); Monocytes # 0.5 10^3/uL (0.2-0.9); Monocytes % 3.8 %; Neutrophils # 9.37 10^3/uL (1.8-7.7); Neutrophils % 71.9 %; Nucleated Red Blood Cells % 0.3 %; Platelet Count 437 10^3/cmm (130-400); Red Blood Count 4.13 10^6/uL (4.1-5.3); Red Cell Distribution Width 12.7 % (12.1-15.1)
[2021-08-22 05:44] LABS: Alanine Aminotransferase 30 U/L (0-33); Albumin Level 3.2 g/dL (3.5-5.2); Alkaline Phosphatase 117 IU/L (35-105); Aspartate Amino Transferase 44 U/L (0-32); Blood Urea Nitrogen 16 mg/dL (6-20); C Reactive Protein 16.2 mg/L (0.0-4.9); Calcium 7.9 mg/dL (8.5-10.5); Carbon Dioxide 21 mmol/L (22-29); Chloride 104 mmol/L (98-107); Glomerular Filtration Rate 102.3 mL/min (90-130); Glucose 82 mg/dL (65-115); Osmolality Calculated 280 mOsm/kg (285-295); Sodium 135 mmol/L (136-145); Total Bilirubin 0.3 mg/dL (0.15-1.2); Total Protein 5.2 g/dL (6.6-8.7)
[2021-08-22] MEDS: levoFLOXacin 500 mg Tablet PO (05:45)
[2021-08-22] MEDS: remdesivir 100 MG in sodium chloride 0.9% (100 ml) 100 ML IV (05:45)
[2021-08-22 06:25] LABS: Slide Review Slide Review Perform
[2021-08-22] MEDS: acetaminophen 325 mg Tablet 650 MG PO ×2 (06:31→13:25)
[2021-08-22 06:56] LABS: D Dimer 9.96 ug/mIFEU (0-0.59)
[2021-08-22] MEDS: losartan 50 mg Tablet PO (08:20)
[2021-08-22] MEDS: aspirin 81 mg EC Tablet PO (08:20)
[2021-08-22] MEDS: ascorbic acid 500 mg Tablet PO ×2 (08:20→18:17)
[2021-08-22] MEDS: montelukast sodium 10 mg Tablet PO (08:20)
[2021-08-22] MEDS: benzonatate 100 mg Capsule 200 MG PO ×3 (08:20→21:00)
[2021-08-22] MEDS: zinc gluconate 50 mg Tablet PO (08:20)
[2021-08-22] MEDS: ferrous gluconate 324 mg Tablet PO ×2 (08:20→18:17)
[2021-08-22] MEDS: topiramate 100 mg Tablet PO (08:25)
[2021-08-22] MEDS: levothyroxine 25 mcg Tablet PO (08:25)
[2021-08-22] MEDS: pantoprazole DR 40 mg Tablet PO (08:25)
[2021-08-22] MEDS: fluticasone nasal spray 16gm Btl 1 SPRAY INTRANASAL (08:26)
[2021-08-22] MEDS: budesonide 0.5 mg/2 mL Neb INHALATION ×2 (08:49→21:18)
[2021-08-22] MEDS: dexamethasone 4 mg/mL INJ 6 MG IVP (10:56)
[2021-08-22] MEDS: enoxaparin 100 mg/mL Syringe 90 MG SUBCUT ×2 (10:58→23:27)
--- NOTE | 2021-08-22 13:36 | P.PN_ITS ---
Subjective Subjective: Interval history: This morning on examination sitting up at bedside. On heated high flow 45 L 60% saturating 93%. Denies any nausea, vomiting, headache. Complaining of ab dominal discomfort. She states she started having discomfort after taking stool softeners early in the morning. States was anxious overnight. Asking if she can use BiPAP overnight just for comfort. We discussed she can use BiPAP overnight if it helps but it would be best if she can avoid BiPAP during the day and work toward more with Jermaine Callejas and continue working with physical therapy and eating her meals. Patient verbalized understanding. Vitals/I&O/Wt Last Vital Signs Temp 97.9 F 08/22/21 12:11 Pulse 93 08/22/21 12:11 Resp 18 08/22/21 12:11 BP 131/77 08/22/21 12:11 Pulse Ox 95 08/22/21 12:11 08/21/21 08/22/21 08/22/21 22:59 06:59 14:59 Intake Total 360 / 960 100 / 1060 Output Total 1300 / 1300 750 / 2050 Balance -940 / -340 -650 / -990 Weight last 48 hrs Weight 103.646 kg Physical Exam Narrative: EXAM NARRATIVE: General: In mild distress secondary to above difficulty in breathing, on heated high flow AO x3, tired, mildly tachypneic but improving from before HEENT: PERRLA, pupils bilaterally equal and reactive Chest: Bronchial type breath sounds bilaterally, coarse crackles present bilaterally, equal good air entry bilaterally CVS: S1-S2 regular, no murmurs, no tachycardia, no gallops, no rubs Abdomen: Soft, nontender, no organomegaly, bowel sounds present Neuro: No focal deficits, no facial deformity, AO x3, power 5/5 in all limbs Urinary Catheter Management: Gomez: Cath Placed During This Visit: yes Reason for Continuing Indwelling Catheter: Acute Urinary Retention or Obstruction Urinary Catheter Date of Insertion: 08/18/21 Urinary Catheter Time of Insertion: 14:00 Data : 08/22/21 04:27 08/22/21 04:27 Micro: Microbiology 08/18/21 12:49 Gram Stain - Final Sputum - Expectorated Sputum Sputum Culture - Final A&P Assessment and plan (1) Acute respiratory failure with hypoxia: Status: Acute (2) COVID-19: Status: Acute (3) HTN (hypertension): Goal blood pressure less than 140/90 mmHg. Continue home dose of losartan. Status: Acute (4) Hypothyroidism: Continue with home dose of levothyroxine. TSH appreciated. Status: Acute (5) Anxiety: Continue home dose of topiramate, trazodone. Status: Acute Plan Hypoxia respiratory failure secondary to COVID-19 pneumonia: Moderate to severe disease. Currently on heated high flow. Oxygen supplementation keeping saturation over 88%. Dexamethasone 6 mg daily. Post 1 dose Actemra on 08/19. Continue with baricitinib to finish a 14-day course. Remdesivir to finish a 5-day course. Last dose of remdesivir today Vitamin C, zinc. Ipratropium, Xopenex every 4 hour, budesonide twice daily Pulmonary toilet with incentive spirometry flutter valve. We will monitor inflammatory markers including CRP, D-dimer every 48 hours. D-dimer continues to worsen. CTA negative for pulmonary embolism. For now we will continue with full dose anticoagulation with Lovenox 1 mg/kg body weight every 12 hourly given high oxygen requirement. Will monitor for anemia or blood loss. Sputum culture pending, procalcitonin, urine Legionella bacterial antigen negative. Urinalysis not concerning for any UTI. Low suspicion of bacterial pneumonia. Continue with oral Levaquin for finish a 5-day course. Given hypoxia will try to keep patient as negative as possible. Echocardiogram shows an EF of 70% without any regional motion abnormality, normal diastolic dysfunction, RVSP of 45. Hold off on Lasix for today. Overall over 4.5 L cc net negative since admission. Replace potassium Strict input output charting, daily weights. Back pain: Chronic. Discussed with patient no need of pain management. Patient is declining any kind of pain management currently. She does not want fentanyl patch or tramadol or narcotics. Agreed for IV Tylenol. Continue other chronic oral home medications. Out of bed to chair. Mechanical soft cardiac diet. Full code. Lovenox will help with DVT prophylaxis. Protonix for PUD prophylaxis. Patient's daughter Ms. Hoyt updated over the phone at [phone]. All the questions were answered. Plan for today: Switch from DuoNeb to ipratropium and Xopenex. Stop po lyethylene glycol. Start on senna docusate p.o. daily. Continue with aggressive pulmonary toilet with I-S and Acapella. BiPAP overnight for comfort. Attestations Medical Necessity Statement*: Requires further hospitalization for management of hypoxic respiratory failure secondary COVID-19 pneumonia . Time Spent in Patient Care: Greater than 35 minutes Coding Level of Care Code Acute Dairy Associate for g Fwd Diagnoses Acute respiratory failure with hypoxia J96.01 COVID-19 U07.1 HTN (hypertension) I10 Hypothyroidism E03.9 Anxiety F41.9
[2021-08-22] MEDS: ipratropium 0.5 mg/2.5 mL Neb INHALATION ×3 (15:20→23:57)
[2021-08-22] MEDS: levalbuterol 0.63 mg/3 mL Neb INHALATION ×3 (15:20→23:57)
[2021-08-22] MEDS: trazodone 100 mg Tablet 200 MG PO (21:00)
[2021-08-23] VITALS (16 sets, daily range): BP systolic 100–136; BP diastolic 46–87; PULSE 67–96; RESP 2–22; TEMP 36.4–37.4; O2SAT 80–97
--- NOTE | 2021-08-23 00:34 | PC.NURSE ---
respiratory was in room giving breathing treatment at the time vitals were taken
[2021-08-23] MEDS: guaiFENesin-dextromethorphan UDC 10 mL 5 ML PO ×2 (00:56→05:20)
[2021-08-23] MEDS: acetaminophen 325 mg Tablet 650 MG PO (01:05)
[2021-08-23] MEDS: ipratropium 0.5 mg/2.5 mL Neb INHALATION ×4 (03:27→19:47)
[2021-08-23] MEDS: levalbuterol 0.63 mg/3 mL Neb INHALATION ×4 (03:27→19:47)
[2021-08-23 04:40] LABS: Add Urine Microscopic? YES; Bilirubin Urine Neg (Negative); Blood Urine 3+ (Negative); Glucose Urine UA Norm (Normal); Ketones Urine 1+ (Negative); Leukocyte Esterase Urine 1+ (Negative); Nitrate Urine Negative (Negative); Protein Urine 1+ (Negative); Urine Color Yellow (Yellow); Urobilinogen Urine Norm (Negative); pH Urine 6 (5-7)
[2021-08-23 04:41] LABS: Add Urine Culture? Yes; Bacteria Urine 2+ /hpf; RBC Urine TOO NUMEROUS TO CNT /hpf (0-2); Squamous Epithelial Cell Urine 0-4 /hpf (0-5); WBC Urine >100 /hpf (0-5)
[2021-08-23] MEDS: levoFLOXacin 500 mg Tablet PO (05:20)
--- NOTE | 2021-08-23 06:00 | XR_ITS ---
WS: [id number] XR chest 1V portable [id number] REASON FOR EXAM: covid FINDINGS: Bilateral diffuse reticular and groundglass lung opacities, relatively unchanged compared to 2. No new findings or other interval change. XR/XR chest 1V portable [id number] IMPRESSION: Stable bilateral lung disease as above.
[2021-08-23 06:03] LABS: Basophils # 0.1 10^3/uL (0.0-0.1); Basophils % 0.5 %; Eosinophils # 0.1 10^3/uL (0.0-0.8); Eosinophils % 0.9 %; Hematocrit 37.7 % (37.0-47.0); Hemoglobin 12.3 g/dL (11.5-15.3); Lymphocytes # 1.4 10^3/uL (0.8-4.8); Lymphocytes % 10.3 %; Mean Corpuscular HGB Conc 32.6 g/dL (30.0-36.0); Mean Corpuscular Hemoglobin 28.9 pg (28.0-34.0); Mean Corpuscular Volume 88.7 fl (81-99); Monocytes # 0.4 10^3/uL (0.2-0.9); Monocytes % 2.8 %; Neutrophils # 10.32 10^3/uL (1.8-7.7); Neutrophils % 75.9 %; Nucleated Red Blood Cells % 0.2 %; Platelet Count 410 10^3/cmm (130-400); Red Blood Count 4.25 10^6/uL (4.1-5.3); Red Cell Distribution Width 12.9 % (12.1-15.1); White Blood Count 13.6 10^3/uL (4.0-10.0)
[2021-08-23 06:23] LABS: Alanine Aminotransferase 31 U/L (0-33); Alkaline Phosphatase 136 IU/L (35-105); Anion Gap 14.4 (5-19); Aspartate Amino Transferase 50 U/L (0-32); Blood Urea Nitrogen 14 mg/dL (6-20); C Reactive Protein 8.9 mg/L (0.0-4.9); Calcium 7.9 mg/dL (8.5-10.5); Carbon Dioxide 20 mmol/L (22-29); Chloride 106 mmol/L (98-107); Globulin 2.4 g/dL (1.3-4.6); Glomerular Filtration Rate 102.3 mL/min (90-130); Glucose 95 mg/dL (65-115); Osmolality Calculated 284 mOsm/kg (285-295); Potassium 3.4 mmol/L (3.5-5.1); Sodium 137 mmol/L (136-145); Total Bilirubin 0.3 mg/dL (0.15-1.2); Total Protein 5.4 g/dL (6.6-8.7)
[2021-08-23 06:28] LABS: Slide Review Slide Review Perform
[2021-08-23] MEDS: cefTRIAXone 1,000 MG in sodium chloride 0.9% (plus) 50 ML 100 MG IV ×2 (06:41→18:46)
[2021-08-23 07:19] LABS: D Dimer >= 20.00 ug/mIFEU (0-0.59)
[2021-08-23] MEDS: budesonide 0.5 mg/2 mL Neb INHALATION ×2 (07:59→19:47)
[2021-08-23] MEDS: topiramate 100 mg Tablet PO (09:05)
[2021-08-23] MEDS: ascorbic acid 500 mg Tablet PO ×2 (09:05→18:46)
[2021-08-23] MEDS: ferrous gluconate 324 mg Tablet PO ×2 (09:06→18:46)
[2021-08-23] MEDS: benzonatate 100 mg Capsule 200 MG PO ×3 (09:06→20:30)
[2021-08-23] MEDS: sennosides-docusate Tablet 1 TAB PO (09:06)
[2021-08-23] MEDS: pantoprazole DR 40 mg Tablet PO (09:06)
[2021-08-23] MEDS: montelukast sodium 10 mg Tablet PO (09:06)
[2021-08-23] MEDS: levothyroxine 25 mcg Tablet PO (09:06)
[2021-08-23] MEDS: zinc gluconate 50 mg Tablet PO (09:07)
[2021-08-23] MEDS: aspirin 81 mg EC Tablet PO (09:07)
[2021-08-23] MEDS: losartan 50 mg Tablet PO (09:13)
[2021-08-23] MEDS: dexamethasone 4 mg/mL INJ 6 MG IVP (10:52)
[2021-08-23] MEDS: fluticasone nasal spray 16gm Btl 1 SPRAY INTRANASAL (10:53)
--- NOTE | 2021-08-23 11:00 | PC.SOCIAL ---
IMM Update pg 2 of IMM updated and reviewed w/ patient. Copy provided. Copy in chart signed.
[2021-08-23] MEDS: enoxaparin 100 mg/mL Syringe 90 MG SUBCUT (12:35)
--- NOTE | 2021-08-23 13:04 | P.PN_ITS ---
Subjective Subjective: Interval history: Had a restless night because of cough. Complaining of hip pain. Did not sleep overnight. Today morning as per the RT patient asked for BiPAP so that she can rest. Saturating 92% on BiPAP. Switched over to heated high flow during the day. Complaining of cough. Appetite is appropriate. Working with I-S and Acapella. Getting anxious overnight. She states she has a history of anxiety in the past as well. We discussed different cough medications, pain medications and anxiety medications in detail. Patient is semiproning when in bed. Vitals/I&O/Wt Last Vital Signs Temp 97.5 F L 08/23/21 04:00 Pulse 70 08/23/21 08:21 Resp 22 H 08/23/21 07:59 BP 131/82 08/23/21 09:13 Pulse Ox 93 08/23/21 08:21 08/22/21 08/23/21 08/23/21 22:59 06:59 14:59 Intake Total 360 / 600 Output Total 1950 / 1950 825 / 2775 Balance -1590 / -1350 -825 / -2175 Weight last 48 hrs Weight 102.512 kg Weight 103.646 kg Physical Exam Narrative: EXAM NARRATIVE: General: In mild distress secondary to above difficulty in breathing, on heated high flow AO x3, tired, mildly tachypneic but improving from before HEENT: PERRLA, pupils bilaterally equal and reactive Chest: Bronchial type breath sounds bilaterally, coarse crackles present bilat erally, equal good air entry bilaterally CVS: S1-S2 regular, no murmurs, no tachycardia, no gallops, no rubs Abdomen: Soft, nontender, no organomegaly, bowel sounds present Neuro: No focal deficits, no facial deformity, AO x3, power 5/5 in all limbs Urinary Catheter Management: Gomez: Cath Placed During This Visit: yes Reason for Continuing Indwelling Catheter: Other Urinary Catheter Date of Insertion: 08/18/21 Urinary Catheter Time of Insertion: 14:00 Data : 08/23/21 05:44 08/23/21 05:44 Micro: Microbiology 08/18/21 06:50 Blood Culture - Final Blood NO GROWTH AFTER 5 DAYS 08/18/21 06:50 Blood Culture - Final Blood NO GROWTH AFTER 5 DAYS A&P Assessment and plan (1) Acute respiratory failure with hypoxia: Status: Acute (2) COVID-19: Status: Acute (3) HTN (hypertension): Goal blood pressure less than 140/90 mmHg. Continue home dose of losartan. Status: Acute (4) Hypothyroidism: Continue with home dose of levothyroxine. TSH appreciated. Status: Acute (5) Anxiety: Continue home dose of topiramate, trazodone. Status: Acute Plan Hypoxia respiratory failure secondary to COVID-19 pneumonia: Moderate to severe disease. Currently on heated high flow. Oxygen supplementation keeping saturation over 88%. Dexamethasone 6 mg daily. Post 1 dose Actemra on 08/19. Continue with bar icitinib to finish a 14-day course. Remdesivir to finish a 5-day course. Last dose of remdesivir today Vitamin C, zinc. Ipratropium, Xopenex every 4 hour, budesonide twice daily Pulmonary toilet with incentive spirometry flutter valve. We will monitor inflammatory markers including CRP, D-dimer every 48 hours. D-dimer extremely high. CTA negative for pulmonary embolism. For now we will continue with full dose anticoagulation with Lovenox 1 mg/kg body weight every 12 hourly given high oxygen requirement. Will monitor for anemia or blood loss. If oxygen supplementation worsen we will have to repeat a CTA to rule out PE with D-dimer getting elevated. Sputum culture pending, procalcitonin, urine Legionella bacterial antigen negative, MRSA negative Repeat UA concerning for UTI. Start with ceftriaxone 1 g daily. Last dose of Levaquin today we will follow up urine culture and change antibiotics accordingly. Given hypoxia will try to keep patient as negative as possible. Echocardiogram shows an EF of 70% without any regional motion abnormality, normal diastolic dysfunction, RVSP of 45. Hold off on Lasix for today. Overall over 6.7 L cc net negative since admission. Replace potassium Strict input output charting, daily weights. Back pain: Chronic. Discussed with patient no need of pain management. Patient is declining any kind of pain management currently. She does not want fentanyl patch or tramadol or narcotics. Agreed for IV Tylenol. Continue other chronic oral home medications. Out of bed to chair. Mechanical soft cardiac diet. Full code. Lovenox will help with DVT prophylaxis. Protonix for PUD prophylaxis. Patient's daughter Ms. Hoyt updated over the phone at [phone]. All the questions were answered. Plan for today: Bowel regimen, continue with ipratropium and Xopenex. BiPAP for comfort overnight. Xanax 1 mg every 8 hours as needed, 1 mg nightly. Continue home dose of Soma. Tylenol IV every 12 as needed for pain. Aggressive pulmona ry toilet with I-S and Acapella. Out of bed to chair. Continue with inhalation treatment. Continue try to wean oxygen keeping saturation over 88%. Attestations Medical Necessity Statement*: Requires further hospitalization for management of hypoxic respiratory failure secondary to COVID-19 pneumonia Time Spent in Patient Care: Greater than 35 minutes Coding Level of Care Code Acute Mental Health Case Manager for [facility] Fwd Diagnoses Acute respiratory failure with hypoxia J96.01 COVID-19 U07.1 HTN (hypertension) I10 Hypothyroidism E03.9 Anxiety F41.9
[2021-08-23] MEDS: potassium chloride ER 20 mEq Tablet 40 MEQ PO (16:11)
[2021-08-23] MEDS: trazodone 100 mg Tablet 200 MG PO (20:30)
[2021-08-23] MEDS: acetaminophen 1,000 MG/100 ML PIGGYBACK 400 MG IV (20:33)
[2021-08-23] MEDS: enoxaparin 100 mg/mL Syringe SUBCUT (22:32)
[2021-08-24] VITALS (14 sets, daily range): BP systolic 90–124; BP diastolic 50–85; PULSE 65–90; RESP 16–24; TEMP 36.6–36.9; O2SAT 86–97
[2021-08-24] MEDS: ipratropium 0.5 mg/2.5 mL Neb INHALATION ×6 (00:01→23:42)
[2021-08-24] MEDS: levalbuterol 0.63 mg/3 mL Neb INHALATION ×6 (00:01→23:42)
[2021-08-24] MEDS: guaiFENesin-dextromethorphan UDC 10 mL PO ×2 (03:48→14:44)
[2021-08-24] MEDS: cefTRIAXone 1,000 MG in sodium chloride 0.9% (plus) 50 ML 100 MG IV ×2 (05:41→18:40)
[2021-08-24 05:45] LABS: Basophils # 0.1 10^3/uL (0.0-0.1); Basophils % 0.4 %; Eosinophils # 0.1 10^3/uL (0.0-0.8); Hematocrit 37.6 % (37.0-47.0); Hemoglobin 12.2 g/dL (11.5-15.3); Lymphocytes # 1.5 10^3/uL (0.8-4.8); Lymphocytes % 10.8 %; Mean Corpuscular HGB Conc 32.4 g/dL (30.0-36.0); Mean Corpuscular Hemoglobin 29.5 pg (28.0-34.0); Mean Corpuscular Volume 90.8 fl (81-99); Mean Platelet Volume 9.1 fL (7.4-10.4); Monocytes # 0.4 10^3/uL (0.2-0.9); Monocytes % 2.6 %; Neutrophils # 10.38 10^3/uL (1.8-7.7); Nucleated Red Blood Cells % 0.2 %; Platelet Count 412 10^3/cmm (130-400); Red Blood Count 4.14 10^6/uL (4.1-5.3); Red Cell Distribution Width 13.2 % (12.1-15.1)
[2021-08-24 06:08] LABS: Slide Review Slide Review Perform
[2021-08-24 06:09] LABS: Alanine Aminotransferase 31 U/L (0-33); Albumin Level 3.2 g/dL (3.5-5.2); Alkaline Phosphatase 143 IU/L (35-105); Aspartate Amino Transferase 49 U/L (0-32); Blood Urea Nitrogen 11 mg/dL (6-20); Calcium 8.7 mg/dL (8.5-10.5); Carbon Dioxide 19 mmol/L (22-29); Chloride 106 mmol/L (98-107); Globulin 2.2 g/dL (1.3-4.6); Glomerular Filtration Rate 126.3 mL/min (90-130); Glucose 93 mg/dL (65-115); Osmolality Calculated 281 mOsm/kg (285-295); Sodium 136 mmol/L (136-145); Total Bilirubin 0.3 mg/dL (0.15-1.2); Total Protein 5.4 g/dL (6.6-8.7)
[2021-08-24 06:10] LABS: Anion Gap 14.7 (5-19); Potassium 3.7 mmol/L (3.5-5.1)
[2021-08-24] MEDS: budesonide 0.5 mg/2 mL Neb INHALATION ×2 (09:26→19:45)
[2021-08-24] MEDS: pantoprazole DR 40 mg Tablet PO (10:22)
[2021-08-24] MEDS: topiramate 100 mg Tablet PO (10:23)
[2021-08-24] MEDS: sennosides-docusate Tablet 1 TAB PO (10:23)
[2021-08-24] MEDS: zinc gluconate 50 mg Tablet PO (10:23)
[2021-08-24] MEDS: benzonatate 100 mg Capsule 200 MG PO ×3 (10:23→20:40)
[2021-08-24] MEDS: ascorbic acid 500 mg Tablet PO ×2 (10:24→18:39)
[2021-08-24] MEDS: aspirin 81 mg EC Tablet PO (10:24)
[2021-08-24] MEDS: montelukast sodium 10 mg Tablet PO (10:24)
[2021-08-24] MEDS: ferrous gluconate 324 mg Tablet PO ×2 (10:24→18:38)
[2021-08-24] MEDS: levothyroxine 25 mcg Tablet PO (10:24)
[2021-08-24] MEDS: fluticasone nasal spray 16gm Btl 1 SPRAY INTRANASAL (10:25)
[2021-08-24] MEDS: dexamethasone 4 mg/mL INJ 6 MG IVP (10:26)
[2021-08-24] MEDS: enoxaparin 100 mg/mL Syringe SUBCUT ×2 (10:26→21:16)
--- NOTE | 2021-08-24 11:13 | PC.NURSE ---
Notified Dr. Quintanilla of patients blood pressure manually at 90/50 and automatic 93/60. Losartan held today
--- NOTE | 2021-08-24 11:46 | P.PN_ITS ---
Subjective Subjective: Interval history: Renetta reports she had a rough night but is currently feeling somewhat better. She is having occasional coughing fits. Medications: Reviewed: Yes Vitals/I&O/Wt Last Vital Signs Temp 98.3 F 08/24/21 07:28 Pulse 82 08/24/21 09:30 Resp 24 H 08/24/21 09:30 BP 90/50 08/24/21 11:13 Pulse Ox 92 08/24/21 09:30 08/23/21 08/24/21 08/24/21 22:59 06:59 14:59 Intake Total 150 / 440 50 / 490 260 / 260 Balance 150 / -760 50 / -710 260 / 260 Weight last 48 hrs Weight 101.831 kg Weight 102.512 kg Physical Exam Narrative: EXAM NARRATIVE: General exam no distress currently on high flow oxygen. Able to complete sentences and maintains a saturation of 93% Neck is supple Cardiovascular regular rate and rhythm without murmur Lungs a few rhonchi bilaterally Abdomen is soft Extremities no cyanosis clubbing or edema Urinary Catheter Management: Gomez: Cath Placed During This Visit: yes Reason for Continuing Indwelling Catheter: Other Urinary Catheter Date of Insertion: 08/18/21 Urinary Catheter Time of Insertion: 14:00 Data : 08/24/21 05:00 08/24/21 05:00 Micro: Microbiology 08/23/21 03:30 Urine Culture - Preliminary Urine Catheterized 08/18/21 06:50 Blood Culture - Final Blood NO GROWTH AFTER 5 DAYS 08/18/21 06:50 Blood Culture - Final Blood NO GROWTH AFTER 5 DAYS A&P Assessment and plan (1) Acute respiratory failure with hypoxia: Secondary to COVID-19 pneumonia. Currently on an FiO2 of 80%. Hopefully can wean today. On heated humidified high flow Status: Acute (2) COVID-19: She is completed remdesivir Has had one dose of Actemra on August 19 Continue dexamethasone As patient received Actemra, will discontinue baricitinib at this time. Incentive spirometry, Acapella Wean heated high flow as tolerated CTA was negative for pulmonary embolism. Dimer greater than 20 so on full dose anticoagulation currently. Will repeat dimer tomorrow. MRSA, bacterial antigens, all negative to date. Overall negative fluid balance. Echocardiogram demonstrated preserved EF Status: Acute (3) HTN (hypertension): Stable although blood pressure somewhat lower this morning. Hold losartan today. Status: Acute (4) Hypothyroidism: Continue with home dose of levothyroxine. Status: Acute (5) Anxiety: Continue home dose of topiramate, trazodone. Status: Acute Plan Possible UTI. Currently on Rocephin. Preliminary culture negative Chronic back pain Full code Lovenox for DVT prophylaxis Protonix for GI prophylaxis Patient's daughter Ms. Hoyt phone at [phone]. Attestations Medical Necessity Statement*: Needs continued hospitalization for treatment of Covid 19 pneumonia with high flow oxygen. Coding Level of Care Code Acute Financial Adviser for [facility] Fwd Diagnoses Acute respiratory failure with hypoxia J96.01 COVID-19 U07.1 HTN (hypertension) I10 Hypothyroidism E03.9 Anxiety F41.9
--- NOTE | 2021-08-24 12:07 | USCV_ITS ---
Renetta Uriostegui Age: 61 Gender: F : 1960 Exam Date: 08/24/2021 15:50 Ordering Phys: Cuba Quintanilla MD Technologist: ADRIANE Exam Location: [facility] [place]_ Indication: ELEVATED DIMER PROCEDURES: Venous duplex imaging was performed in bilateral lower extremities. The following venous structures were evaluated: common femoral vein, profunda vein, proximal portion of the greater saphenous vein, superficial femoral vein, and the popliteal vein. In addition, the posterior tibial and peroneal trunk were evaluated. Serial compression, augmentation maneuvers, and spectral Doppler flow evaluation were performed. FINDINGS: Normal 2-D Doppler and augmentation and compressibility throughout the lower extremity venous structures. Additional imaging through the proximal calf veins also reveals no thrombus. Limited evaluation of the greater saphenous vein is patent with no thrombus. CONCLUSIONS No DVT bilateral lower extremities. Dr. Evelin Oden DO (Electronically Signed) Final Date: 24 August 2021 16:58 S
[2021-08-24] MEDS: trazodone 100 mg Tablet 200 MG PO (20:40)
[2021-08-24] MEDS: acetaminophen 1,000 MG/100 ML PIGGYBACK 400 MG IV (20:51)
[2021-08-24] MEDS: alum-mag-hydroxide-sime 30 mL UDC 15 ML PO (21:57)
[2021-08-25] VITALS (17 sets, daily range): BP systolic 103–120; BP diastolic 66–78; PULSE 65–91; RESP 16–24; TEMP 36.3–37.1; O2SAT 87–95
[2021-08-25] MEDS: ipratropium 0.5 mg/2.5 mL Neb INHALATION ×5 (03:01→19:54)
[2021-08-25] MEDS: levalbuterol 0.63 mg/3 mL Neb INHALATION ×5 (03:01→19:52)
[2021-08-25] MEDS: cefTRIAXone 1,000 MG in sodium chloride 0.9% (plus) 50 ML 100 MG IV ×2 (05:23→18:11)
[2021-08-25] MEDS: guaiFENesin-dextromethorphan UDC 10 mL PO ×2 (05:23→16:09)
[2021-08-25 06:12] LABS: Hematocrit 37.4 % (37.0-47.0); Mean Corpuscular HGB Conc 32.1 g/dL (30.0-36.0); Mean Corpuscular Hemoglobin 29.3 pg (28.0-34.0); Mean Corpuscular Volume 91.2 fl (81-99); Mean Platelet Volume 9.5 fL (7.4-10.4); Platelet Count 444 10^3/cmm (130-400); Red Cell Distribution Width 13.2 % (12.1-15.1); White Blood Count 15.3 10^3/uL (4.0-10.0)
[2021-08-25 06:31] LABS: D Dimer >= 20.00 ug/mIFEU (0-0.59)
[2021-08-25 06:49] LABS: Alanine Aminotransferase 26 U/L (0-33); Albumin Level 3.1 g/dL (3.5-5.2); Alkaline Phosphatase 150 IU/L (35-105); Anion Gap 14.9 (5-19); Aspartate Amino Transferase 49 U/L (0-32); Blood Urea Nitrogen 10 mg/dL (6-20); C Reactive Protein 5.3 mg/L (0.0-4.9); Carbon Dioxide 23 mmol/L (22-29); Chloride 106 mmol/L (98-107); Globulin 2.2 g/dL (1.3-4.6); Glomerular Filtration Rate 126.3 mL/min (90-130); Glucose 84 mg/dL (65-115); Osmolality Calculated 288 mOsm/kg (285-295); Potassium 3.9 mmol/L (3.5-5.1); Sodium 140 mmol/L (136-145); Total Bilirubin 0.3 mg/dL (0.15-1.2); Total Protein 5.3 g/dL (6.6-8.7)
[2021-08-25 06:55] LABS: Procalcitonin 0.08 ng/mL (0-0.5)
[2021-08-25 07:39] LABS: Slide Review Slide Review Perform
[2021-08-25 07:41] LABS: Absolute Segmented Neutrophil 8.9 10/cmm (1.6-7.1); Band Neutrophils Absolute 4.1 10^3/cmm (0.0-1.2); Lymphocytes 13 %; Segmented Neutrophils 58 %; Total Cells Counted 100 (0-100)
[2021-08-25 07:42] LABS: Eosinophils 0 %; Platelet Estimate Normal (Normal)
[2021-08-25] MEDS: fluticasone nasal spray 16gm Btl 1 SPRAY INTRANASAL (09:09)
[2021-08-25] MEDS: aspirin 81 mg EC Tablet PO (09:09)
[2021-08-25] MEDS: topiramate 100 mg Tablet PO (09:10)
[2021-08-25] MEDS: pantoprazole DR 40 mg Tablet PO (09:10)
[2021-08-25] MEDS: ascorbic acid 500 mg Tablet PO ×2 (09:10→18:12)
[2021-08-25] MEDS: zinc gluconate 50 mg Tablet PO (09:10)
[2021-08-25] MEDS: montelukast sodium 10 mg Tablet PO (09:10)
[2021-08-25] MEDS: levothyroxine 25 mcg Tablet PO (09:10)
[2021-08-25] MEDS: fexofenadine 60 mg Tablet 180 MG PO ×2 (09:10→18:12)
[2021-08-25] MEDS: benzonatate 100 mg Capsule 200 MG PO ×3 (09:10→20:46)
[2021-08-25] MEDS: ferrous gluconate 324 mg Tablet PO ×2 (09:10→18:12)
[2021-08-25] MEDS: budesonide 0.5 mg/2 mL Neb INHALATION ×2 (09:12→19:52)
[2021-08-25] MEDS: dexamethasone 4 mg/mL INJ 6 MG IVP (11:14)
[2021-08-25] MEDS: enoxaparin 100 mg/mL Syringe SUBCUT ×2 (11:14→21:18)
--- NOTE | 2021-08-25 11:14 | PC.SOCIAL ---
IMM Update pg 2 of IMM updated and reviewed w/ patient. Copy provided and Copy updated in chart.
--- NOTE | 2021-08-25 11:24 | P.PN_ITS ---
Subjective Subjective: Interval history: Renetta reports she is going to try not to wear the BiPAP tonight. She states she feels like she coughs more in the morning after using and it takes her a while to recover her oxygen levels to reduce her FiO2. Medications: Reviewed: Yes Vitals/I&O/Wt Last Vital Signs Temp 97.5 F L 08/25/21 08:00 Pulse 87 08/25/21 09:19 Resp 18 08/25/21 09:12 BP 103/67 08/25/21 08:00 Pulse Ox 93 08/25/21 09:12 08/24/21 08/25/21 08/25/21 22:59 06:59 14:59 Intake Total 400 / 660 50 / 710 240 / 240 Balance 400 / 660 50 / 710 240 / 240 Weight last 48 hrs Weight 103.827 kg Weight 101.831 kg Physical Exam Narrative: EXAM NARRATIVE: General exam no distress currently on high flow oxygen. Able to complete sentences and maintains a saturation of 93% Neck is supple Cardiovascular regular rate and rhythm without murmur Lungs a few rhonchi bilaterally Abdomen is soft Extremities no cyanosis clubbing or edema Urinary Catheter Management: Gomez: Cath Placed During This Visit: yes Reason for Continuing Indwelling Catheter: Other Urinary Catheter Date of Insertion: 08/18/21 Urinary Catheter Time of Insertion: 14:00 Data : 08/25/21 05:04 08/25/21 05:04 Micro: Microbiology 08/23/21 03:30 Urine Culture - Preliminary Urine Catheterized A&P Assessment and plan (1) Acute respiratory failure with hypoxia: Secondary to COVID-19 pneumonia. Currently on an FiO2 of 70%. I think this can hopefully be weaned down today. She is going to try to stay off BiPAP tonight. Status: Acute (2) COVID-19: She is completed remdesivir Has had one dose of Actemra on August 19 Continue dexamethasone As patient received Actemra, will discontinue baricitinib at this time. Incentive spirometry, Acapella Wean heated high flow as tolerated CTA was negative for pulmonary embolism. Dimer still greater than 20 so on full dose anticoagulation currently. MRSA, bacterial antigens, all negative to date. She feels somewhat puffy today. Dose of Lasix will be given 40 mg IV Echocardiogram demonstrated preserved EF, mild pulmonary hypertension Status: Acute (3) HTN (hypertension): Discontinue losartan. Blood pressures in the lower range. Status: Acute (4) Hypothyroidism: Continue with home dose of levothyroxine. Status: Acute (5) Anxiety: Continue home dose of topiramate, trazodone. Status: Acute Plan Possible UTI. Currently on Rocephin. Preliminary culture negative Chronic back pain Full code Lovenox for DVT prophylaxis Protonix for GI prophylaxis Lab holiday tomorrow. Patient's daughter Ms. Hoyt phone at [phone]. Attestations Medical Necessity Statement*: Needs continued hospitalization secondary to severe COVID-19 pneumonia requiring high flow oxygen. Coding Level of Care Code Acute Physician Credentialing Specialist for [facility] Fwd Diagnoses Acute respiratory failure with hypoxia J96.01 COVID-19 U07.1 HTN (hypertension) I10 Hypothyroidism E03.9 Anxiety F41.9
[2021-08-25] MEDS: FUROsemide 10 mg/mL SDV 2mL 20 MG IVP (12:28)
[2021-08-25] MEDS: trazodone 100 mg Tablet 200 MG PO (20:47)
[2021-08-26] VITALS (25 sets, daily range): BP systolic 101–135; BP diastolic 66–83; PULSE 67–102; RESP 16–26; TEMP 36.3–36.9; O2SAT 85–94
[2021-08-26] MEDS: guaiFENesin-dextromethorphan UDC 10 mL PO ×4 (02:11→23:53)
[2021-08-26] MEDS: cefTRIAXone 1,000 MG in sodium chloride 0.9% (plus) 50 ML 100 MG IV ×2 (06:25→16:55)
[2021-08-26] MEDS: fexofenadine 60 mg Tablet 180 MG PO ×2 (07:37→16:55)
[2021-08-26] MEDS: montelukast sodium 10 mg Tablet PO (07:37)
[2021-08-26] MEDS: ferrous gluconate 324 mg Tablet PO ×2 (07:37→16:55)
[2021-08-26] MEDS: topiramate 100 mg Tablet PO (07:37)
[2021-08-26] MEDS: zinc gluconate 50 mg Tablet PO (07:37)
[2021-08-26] MEDS: sennosides-docusate Tablet 1 TAB PO (07:37)
[2021-08-26] MEDS: pantoprazole DR 40 mg Tablet PO (07:38)
[2021-08-26] MEDS: benzonatate 100 mg Capsule 200 MG PO ×3 (07:38→20:24)
[2021-08-26] MEDS: levothyroxine 25 mcg Tablet PO (07:38)
[2021-08-26] MEDS: ascorbic acid 500 mg Tablet PO ×2 (07:38→16:55)
[2021-08-26] MEDS: aspirin 81 mg EC Tablet PO (07:38)
[2021-08-26] MEDS: fluticasone nasal spray 16gm Btl 1 SPRAY INTRANASAL (07:39)
[2021-08-26] MEDS: levalbuterol 0.63 mg/3 mL Neb INHALATION ×6 (08:39→23:31)
[2021-08-26] MEDS: budesonide 0.5 mg/2 mL Neb INHALATION ×2 (08:39→19:53)
[2021-08-26] MEDS: ipratropium 0.5 mg/2.5 mL Neb INHALATION ×6 (08:39→23:30)
--- NOTE | 2021-08-26 09:01 | PM.PN ---
Subjective Subjective: Interval history: Renetta reports she feels better. Glad she did wear the BiPAP. Medications: Reviewed: Yes Vitals/I&O/Wt Last Vital Signs Temp 98.5 F 08/26/21 07:33 Pulse 86 08/26/21 09:00 Resp 20 H 08/26/21 08:46 BP 126/80 08/26/21 07:33 Pulse Ox 87 L 08/26/21 08:46 08/25/21 08/26/21 08/26/21 22:59 06:59 14:59 Intake Total 290 / 1010 200 / 1210 Balance 290 / 1010 200 / 1210 Weight last 48 hrs Weight 101.242 kg Weight 103.827 kg Physical Exam Narrative: EXAM NARRATIVE: General exam no distress Neck supple Cardiovascular regular rate and rhythm Lungs a few scattered rales Abdomen is soft Extremities no cyanosis clubbing or edema Urinary Catheter Management: Gomez: Cath Placed During This Visit: yes Reason for Continuing Indwelling Catheter: Other Urinary Catheter Date of Insertion: 08/18/21 Urinary Catheter Time of Insertion: 14:00 Data : 08/25/21 05:04 08/25/21 05:04 Micro: Microbiology 08/23/21 03:30 Urine Culture - Final Urine Catheterized A&P Assessment and plan (1) Acute respiratory failure with hypoxia: Secondary to Covid Has weaned down to an FiO2 of 50% Did okay without BiPAP last night She has completed her remdesivir Continue dexamethasone. Last dose tomorrow. She had Actemra on August 19 Continue incentive spirometry Acapella CTA was negative for pulmonary embolism but secondary to markedly elevated dimer on full dose anticoagulation. I am going to change this to Eliquis. Bacterial antigens, MRSA negative Echocardiogram demonstrated preserved EF, mild pulmonary hypertension Status: Acute (2) COVID-19: Status: Acute (3) HTN (hypertension): Losartan discontinued for lower blood pressures Status: Acute (4) Hypothyroidism: Stable Status: Acute (5) Anxiety: Continue home medicines. Still with a significant component of anxiety. Status: Acute Attestations Medical Necessity Statement*: Needs continued hospitalization for continued support secondary to severe COVID-19 pneumonia requiring high flow oxygen. Coding Level of Care Code Acute Ground Systems Engineer for [facility] Ru Diagnoses Acute respiratory failure with hypoxia J96.01 COVID-19 U07.1 HTN (hypertension) I10 Hypothyroidism E03.9 Anxiety F41.9
[2021-08-26] MEDS: dexamethasone 4 mg/mL INJ 6 MG IVP (10:42)
--- NOTE | 2021-08-26 15:58 | PC.RESP ---
1500 pt. had a shower on 10lpm via neHenry rachel. sulaiman
[2021-08-26] MEDS: apixaban 5 mg Tablet PO (20:24)
[2021-08-26] MEDS: trazodone 100 mg Tablet 200 MG PO (20:24)
[2021-08-26] MEDS: acetaminophen 1,000 MG/100 ML PIGGYBACK 400 MG IV (22:59)
[2021-08-26] MEDS: cetylpyridinium Lozenge 1 EACH MUCOUS MEM (23:53)
[2021-08-27] VITALS (14 sets, daily range): BP systolic 105–131; BP diastolic 64–83; PULSE 84–105; RESP 18–30; TEMP 36.7–36.9; O2SAT 85–94
[2021-08-27] MEDS: levalbuterol 0.63 mg/3 mL Neb INHALATION ×4 (03:34→20:50)
[2021-08-27] MEDS: ipratropium 0.5 mg/2.5 mL Neb INHALATION ×4 (03:35→20:50)
[2021-08-27] MEDS: guaiFENesin-dextromethorphan UDC 10 mL PO ×3 (04:56→20:45)
[2021-08-27 04:57] LABS: Basophils % 0.2 %; Eosinophils # 0.2 10^3/uL (0.0-0.8); Hematocrit 35.4 % (37.0-47.0); Hemoglobin 11.5 g/dL (11.5-15.3); Lymphocytes # 1.3 10^3/uL (0.8-4.8); Lymphocytes % 7.6 %; Mean Corpuscular HGB Conc 32.5 g/dL (30.0-36.0); Mean Corpuscular Hemoglobin 29.5 pg (28.0-34.0); Mean Corpuscular Volume 90.8 fl (81-99); Mean Platelet Volume 9.4 fL (7.4-10.4); Monocytes # 0.5 10^3/uL (0.2-0.9); Monocytes % 3.2 %; Neutrophils # 14.03 10^3/uL (1.8-7.7); Neutrophils % 83.4 %; Nucleated Red Blood Cells % 0.1 %; Platelet Count 316 10^3/cmm (130-400); Red Cell Distribution Width 13.7 % (12.1-15.1); White Blood Count 16.8 10^3/uL (4.0-10.0)
[2021-08-27 05:20] LABS: Alanine Aminotransferase 19 U/L (0-33); Albumin Level 3.2 g/dL (3.5-5.2); Alkaline Phosphatase 129 IU/L (35-105); Aspartate Amino Transferase 34 U/L (0-32); Blood Urea Nitrogen 11 mg/dL (6-20); Carbon Dioxide 22 mmol/L (22-29); Chloride 108 mmol/L (98-107); Globulin 1.7 g/dL (1.3-4.6); Glomerular Filtration Rate 102.3 mL/min (90-130); Glucose 117 mg/dL (65-115); Osmolality Calculated 292 mOsm/kg (285-295); Sodium 141 mmol/L (136-145); Total Bilirubin 0.2 mg/dL (0.15-1.2); Total Protein 4.9 g/dL (6.6-8.7)
--- NOTE | 2021-08-27 05:20 | ECG_ITS ---
[facility] Test Date: 2021-08-27 Pat Name: Renetta Uriostegui Department: Room: 251 Gender: Female Flavoring Maker: : 1960 Requested By: Neri Sarmiento Order Number: [id number] Sigrid MD: Wai Vernon M.D. Measurements Intervals [place] Rate: 82 P: 32 MN: 152 QRS: -33 QRSD: 108 T: -17 QT: 372 QTc: 436 Interpretive Statements SINUS RHYTHM LEFT AXIS DEVIATION [QRS AXIS < -30] PATTERN CONSISTENT WITH PULMONARY DISEASE MODERATE T-WAVE ABNORMALITY, CONSIDER ANTERIOR ISCHEMIA [-0.1+ mV T-WAVE IN V3/V4] Compared to ECG 12/05/2017 16:34:04 Left-axis deviation now present T-wave abnormality now present Possible ischemia now present Myocardial infarct finding no longer present Electronically Signed On 08-27-2021 17:39:40 SUPPLY CONTROLLER by Wai Vernon M.D. [id number]
--- NOTE | 2021-08-27 05:41 | XR_ITS ---
WS: [id number] PORTABLE CHEST HISTORY: Chest tightness COMPARISON: 08/23/2021 Diffuse bilateral opacifications, slightly greater throughout the LEFT lung. Very minimal improvement in the opacifications in the LEFT lung and mild progression within the RIGHT lung. No pleural effusi on or pneumothorax. Cardiac size: Mildly enlarged cardiac silhouette. Mediastinum/Aorta: No mediastinal widening. No pneumomediastinum. No osseous abnormality seen. XR/XR chest 1V portable [id number] IMPRESSION: 1. Bilateral pulmonary opacifications consistent with pneumonia. Minimal impro vement in the LEFT lung and mild progression throughout the RIGHT lung. 2. Mild cardiomegaly.
[2021-08-27 05:44] LABS: Anion Gap 14.6 (5-19); Potassium 3.6 mmol/L (3.5-5.1)
[2021-08-27] MEDS: diphenhydrAMINE 25 mg Capsule PO ×2 (05:47→23:17)
[2021-08-27] MEDS: ketorolac 30 mg/mL INJ 15 MG IVP ×2 (05:47→23:27)
[2021-08-27] MEDS: cefTRIAXone 1,000 MG in sodium chloride 0.9% (plus) 50 ML 100 MG IV (05:48)
[2021-08-27] MEDS: budesonide 0.5 mg/2 mL Neb INHALATION ×2 (08:00→20:50)
[2021-08-27 08:01] LABS: Troponin T (5th) Once 31 ng/L (0-10)
--- NOTE | 2021-08-27 08:47 | PC.SOCIAL ---
IMM UPDATED IMM dated and initialed and copy given to patient
[2021-08-27] MEDS: aspirin 81 mg EC Tablet PO (09:21)
[2021-08-27] MEDS: apixaban 5 mg Tablet PO ×2 (09:21→20:44)
[2021-08-27] MEDS: montelukast sodium 10 mg Tablet PO (09:21)
[2021-08-27] MEDS: sennosides-docusate Tablet 1 TAB PO (09:21)
[2021-08-27] MEDS: ferrous gluconate 324 mg Tablet PO ×2 (09:22→17:35)
[2021-08-27] MEDS: zinc gluconate 50 mg Tablet PO (09:22)
[2021-08-27] MEDS: benzonatate 100 mg Capsule 200 MG PO ×3 (09:22→20:45)
[2021-08-27] MEDS: pantoprazole DR 40 mg Tablet PO (09:22)
[2021-08-27] MEDS: levothyroxine 25 mcg Tablet PO (09:22)
[2021-08-27] MEDS: topiramate 100 mg Tablet PO (09:22)
[2021-08-27] MEDS: ascorbic acid 500 mg Tablet PO (09:22)
[2021-08-27] MEDS: fluticasone nasal spray 16gm Btl 1 SPRAY INTRANASAL (09:23)
--- NOTE | 2021-08-27 10:44 | P.PN_ITS ---
Subjective Subjective: Interval history: Renetta reports she had a very difficult time last night with shortness of breath. Feels a little bit better now, but is very tired. Has some indigestion and would like some medication for gas. Medications: Reviewed: Yes Vitals/I&O/Wt Last Vital Signs Temp 98.4 F 08/27/21 04:00 Pulse 85 08/27/21 08:29 Resp 20 H 08/27/21 08:29 BP 105/65 08/27/21 04:00 Pulse Ox 88 L 08/27/21 08:29 08/26/21 08/27/21 08/27/21 22:59 06:59 14:59 Intake Total 530 / 820 100 / 920 Output Total 0 / 0 0 / 0 Balance 530 / 820 100 / 920 Weight last 48 hrs Weight 101.242 kg Physical Exam Narrative: EXAM NARRATIVE: General exam no distress Neck supple Cardiovascular regular rate and rhythm Lungs a few scattered rales Abdomen is soft Extremities no cyanosis clubbing or edema Urinary Catheter Management: Gomez: Cath Placed During This Visit: yes Reason for Continuing Indwelling Catheter: Other Urinary Catheter Date of Insertion: 08/18/21 Urinary Catheter Time of Insertion: 14:00 Data : 08/27/21 04:36 08/27/21 04:36 A&P Assessment and plan (1) Acute respiratory failure with hypoxia: Secondary to Covid Now back up to an FiO2 of 60 to 70%. Hopefully can wean again today. She has completed her remdesivir May discontinue dexamethasone today She had Actemra on August 19 Continue incentive spirometry Acapella CTA was negative for pulmonary embolism but secondary to markedly elevated dimer on full dose anticoagulation. Currently on Eliquis 5 mg twice daily Bacterial antigens, MRSA negative Echocardiogram demonstrated preserved EF, mild pulmonary hypertension White blood cell count increased. Sputum production increased. FiO2 slightly increased. Chest x-ray shows some more consolidation on the left. I am concerned about secondary bacterial infection. We will discontinue her Rocephin, and place her on Primaxin today. Sputum culture ordered. She feels as if she has some lower extremity edema. Will initiate Lasix 20 mg daily. She takes this as needed at home. Status: Acute (2) COVID-19: Status: Acute (3) HTN (hypertension): Losartan discontinued for lower blood pressures Status: Acute (4) Hypothyroidism: Stable Status: Acute (5) Anxiety: Continue home medicines. Still with a significant component of anxiety. Status: Acute Plan Some gas pains. Add gas drops as needed. She is already on Protonix. Full code Eliquis will suffice for DVT prophylaxis Attestations Medical Necessity Statement*: Needs continued hospitalization for treatment of Covid 19 pneumonia, possible secondary bacterial infection with IV antibiotics in this patient requiring high flow oxygen. 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
[2021-08-27] MEDS: fexofenadine 60 mg Tablet 180 MG PO ×2 (11:11→17:46)
[2021-08-27] MEDS: potassium chloride ER 20 mEq Tablet 40 MEQ PO (11:11)
--- NOTE | 2021-08-27 11:28 | ANES.PROC ---
Anesthesia Procedures Procedure/Date: 08/27/21 IV insertion Procedure Narrative: Tourniquet applied to L arm, US used to identify vessel, alcohol swab used to clease area, 20g IV inserted under US-guidance. Flushed 20 cc NS w/ ease and not patient discomfort. Veniguard applied. - Perfomed by Patito Mckinney CRNA
[2021-08-27] MEDS: FUROsemide 10 mg/mL SDV 2mL 20 MG IVP (14:54)
[2021-08-27] MEDS: trazodone 100 mg Tablet 200 MG PO (20:45)
[2021-08-27 23:57] LABS: ABG PCO2 40.6 mmHg (35-45); ABG PH Result 7.39 (7.35-7.45); Alveolar-Arterial Oxygen Gradi 79.1 mmHg (5-10); Base Excess ABG -0.3 mmol/L (-2.0-2.0); Blood Gas Allen Test Pos; Blood Gas Operator Identificat JB; Blood Gas Sample Site Radial, right; Blood Gas Sample Type Arterial; Carboxyhemoglobin 0.8 %THgb (0.4-20.1); HCO3 ABG 24.7 mmol/L (22-26); HGB O2 Sat 91.4 % (95-100); Ionized Calcium Level - ABG 1.2 mmol/L (1.1-1.4); Methemoglobin 0.8 % (0.4-1.5); Oxygen Device HAG; Oxygen Saturation ABG 92.8; Potassium Level - ABG 3.6 mmol/L (3.5-5.0); Total Hemoglobin 12.4 g/dL (12-16)
[2021-08-28] VITALS (35 sets, daily range): BP systolic 114–159; BP diastolic 64–96; PULSE 82–113; RESP 15–38; TEMP 36.3–36.8; O2SAT 87–96
[2021-08-28] MEDS: levalbuterol 0.63 mg/3 mL Neb INHALATION ×6 (03:20→23:01)
[2021-08-28] MEDS: ipratropium 0.5 mg/2.5 mL Neb INHALATION ×6 (03:20→23:01)
[2021-08-28] MEDS: guaiFENesin-dextromethorphan UDC 10 mL PO ×4 (04:13→21:11)
[2021-08-28 06:05] LABS: Basophils # 0.1 10^3/uL (0.0-0.1); Basophils % 0.2 %; Eosinophils # 0.2 10^3/uL (0.0-0.8); Eosinophils % 0.9 %; Hematocrit 37.3 % (37.0-47.0); Lymphocytes # 1.4 10^3/uL (0.8-4.8); Lymphocytes % 6.3 %; Mean Corpuscular HGB Conc 32.2 g/dL (30.0-36.0); Mean Corpuscular Hemoglobin 29.4 pg (28.0-34.0); Mean Corpuscular Volume 91.4 fl (81-99); Mean Platelet Volume 9.3 fL (7.4-10.4); Monocytes # 0.7 10^3/uL (0.2-0.9); Monocytes % 3.4 %; Neutrophils # 18.68 10^3/uL (1.8-7.7); Neutrophils % 87.3 %; Nucleated Red Blood Cells % 0.1 %; Platelet Count 211 10^3/cmm (130-400); Red Blood Count 4.08 10^6/uL (4.1-5.3); Red Cell Distribution Width 13.9 % (12.1-15.1); White Blood Count 21.4 10^3/uL (4.0-10.0)
[2021-08-28 06:27] LABS: Blood Urea Nitrogen 13 mg/dL (6-20); Calcium 9.1 mg/dL (8.5-10.5); Carbon Dioxide 22 mmol/L (22-29); Glomerular Filtration Rate 102.3 mL/min (90-130); Glucose 102 mg/dL (65-115)
[2021-08-28 07:09] LABS: Anion Gap 14.9 (5-19); Chloride 106 mmol/L (98-107); Osmolality Calculated 288 mOsm/kg (285-295); Potassium 3.9 mmol/L (3.5-5.1); Sodium 139 mmol/L (136-145)
--- NOTE | 2021-08-28 08:21 | CTR_ITS ---
PROCEDURE INFORMATION: Exam: CTA Chest With Contrast Exam date and time: 08/28/2021 8:21 AM Age: 61 years old Clinical indication: Shortness of breath; Additional info: Increased o2 requirement TECHNIQUE: Imaging protocol: Computed tomographic angiography of the chest with contrast. 3D rendering (Not supervised by radiologist): MIP and/or 3D reconstructed images were created by the technologist. Radiation optimization: All CT scans at this facility use at least one of these dose optimization techniques: automated exposure control; mA and/or kV adjustment per patient size (includes targeted exams where dose is matched to clinical indication); or iterative reconstruction. Contrast material: VISI 320; Contrast volume: 61 ml; Contrast route: INTRAVENOUS (IV); COMPARISON: CT angio chest PE protcl [id number] 08/18/2021 7:05 AM RADIATION DOSE METRICS: Total DLP (mGy-cm): 564.53 FINDINGS: Pulmonary arteries: There are multiple small central filling defects in 1st order through segmental branches of the right pulmonary artery supplying the upper, middle, and lower lobes, consistent with pulmonary emboli. Aorta: Unremarkable. No aortic aneurysm. No aortic dissection. Lungs: Multifocal patchy bilateral pulmonary ground-glass infiltrates, worsened when compared to the prior CT scan. There are pulmonary parenchymal calcifications consistent with remote granulomatous organism exposure. Pleural spaces: Unremarkable. No pneumothorax. No pleural effusion. Heart: Multivessel atherosclerotic disease which involves the coronary arteries. Lymph nodes: Multiple mediastinal and perihilar lymph nodes some of which are conglomerated together and are not possible to measure. Kidneys and ureters: Partially visualized right renal cyst. Bones/joints: Unremarkable. No acute fracture. Soft tissues: Unremarkable. CT/CT angio chest PE protcl [id number] IMPRESSION: 1. Multiple small pulmonary emboli in 1st order through segmental branches of the right pulmonary artery. 2. Bilateral pneumonia, appears worsened when compared to the prior study. COMMENTS: Consistent with the [employer]'s Incidental Findings Committee white paper (J Am Margie Radiol 2018): Any incidental renal lesion less than 1 cm or classified as too small to characterize, or any incidental cystic renal lesion characterized as simple-appearing, is likely benign. No follow-up imaging is recommended for these lesions per consensus recommendations based on imaging criteria.
[2021-08-28] MEDS: benzonatate 100 mg Capsule 200 MG PO ×3 (09:02→21:10)
[2021-08-28] MEDS: fexofenadine 60 mg Tablet 180 MG PO (09:02)
[2021-08-28] MEDS: pantoprazole DR 40 mg Tablet PO (09:02)
[2021-08-28] MEDS: FUROsemide 20 mg Tablet 40 MG PO (09:02)
[2021-08-28] MEDS: zinc gluconate 50 mg Tablet PO (09:03)
[2021-08-28] MEDS: topiramate 100 mg Tablet PO (09:03)
[2021-08-28] MEDS: montelukast sodium 10 mg Tablet PO (09:03)
[2021-08-28] MEDS: ascorbic acid 500 mg Tablet PO (09:03)
[2021-08-28] MEDS: levothyroxine 25 mcg Tablet PO (09:03)
[2021-08-28] MEDS: aspirin 81 mg EC Tablet PO (09:03)
[2021-08-28] MEDS: sennosides-docusate Tablet 1 TAB PO (09:03)
[2021-08-28] MEDS: apixaban 5 mg Tablet PO (09:03)
[2021-08-28] MEDS: potassium chloride ER 20 mEq Tablet PO (09:03)
[2021-08-28] MEDS: ferrous gluconate 324 mg Tablet PO ×2 (09:03→17:10)
[2021-08-28] MEDS: budesonide 0.5 mg/2 mL Neb INHALATION ×2 (09:15→20:59)
[2021-08-28 09:33] LABS: ABG PCO2 37.1 mmHg (35-45); ABG PH Result 7.42 (7.35-7.45); Alveolar-Arterial Oxygen Gradi 61.5 mmHg (5-10); Arterial Blood Gas Hematocrit 38.1 % (37-47); Base Excess ABG -0.4 mmol/L (-2.0-2.0); Blood Gas Allen Test Pos; Blood Gas Operator Identificat MONRO; Blood Gas Sample Site Radial, right; Blood Gas Sample Type Arterial; Carboxyhemoglobin 0.7 %THgb (0.4-20.1); HCO3 ABG 23.9 mmol/L (22-26); HGB O2 Sat 90.4 % (95-100); Methemoglobin 0.5 % (0.4-1.5); Oxygen Device NC; Oxygen Saturation ABG 91.5; PO2 ABG 60.1 mmHg (80.0-100.0); Potassium Level - ABG 3.6 mmol/L (3.5-5.0); Total Hemoglobin 12.4 g/dL (12-16)
--- NOTE | 2021-08-28 11:11 | P.PN_ITS ---
Subjective Subjective: Interval history: Notes and labs reviewed, overnight events noted, ABG from last night showed PO2 66, overnight there was no overhead announcement for rapid response RT increase her FiO2 from 50% to 80% , This morning she was complaining of worsening of her symptoms, patient was evaluated multiple times this morning, requested Dr. Magallon to evaluate her as well ABG revealed PO2 60 P to F ratio 75, severe ARDS We do not have any beds available in ICU and there are 2 surgeries going on, I requested CSU to swab 102 with 251 Her daughter Evelina was updated, also called her this morning Patient is very anxious and did not like the idea of intubation when I talked about worsening of respiratory distress in near future Her daughter is a nurse, she does understand the severity of her COVID-19 related infection I discussed this case with Dr. Morel, this morning we are getting CTA chest after giving her Benadryl and steroids, We will keep her on IV steroids, change Eliquis to Lovenox therapeutic regimen Continue IV Primaxin Monitor closely for any further worsening of respiratory distress Before CTA chest we will put her on BiPAP and Precedex to decrease her anxiety symptoms Vitals/I&O/Wt Last Vital Signs Temp 97.3 F L 08/28/21 04:00 Pulse 96 08/28/21 09:30 Resp 24 H 08/28/21 09:30 BP 120/74 08/28/21 07:10 Pulse Ox 88 L 08/28/21 09:30 08/27/21 08/28/21 08/28/21 22:59 06:59 14:59 Intake Total 340 / 920 700 / 1620 340 / 340 Output Total 300 / 300 300 / 600 450 / 450 Balance 40 / 620 400 / 1020 -110 / -110 Weight last 48 hrs Weight 102.875 kg Physical Exam Narrative: EXAM NARRATIVE: Patient was sitting at the bedside Very anxious Her saturation was 90 to 91% on 80% FiO2 on heated high flow which was later increased to 90% after reviewing ABG I did put her on BiPAP before CTA chest She has bilateral breath sounds with mild rhonchi I do not hear any wheezing or crepitation Abdomen soft Patient looks euvolemic Very anxious S1, S2 Nonfocal neuro exam Nonpitting edema of legs bilaterally Urinary Catheter Management: Gomez: Cath Placed During This Visit: yes Reason for Continuing Indwelling Catheter: Other Urinary Catheter Date of Insertion: 08/18/21 Urinary Catheter Time of Insertion: 14:00 Data : 08/28/21 05:15 08/28/21 05:15 A&P Assessment and plan (1) Anxiety: Status: Acute (2) Hypothyroidism: Status: Acute (3) Acute respiratory failure with hypoxia: Status: Acute (4) COVID-19: Status: Acute (5) Plantar fasciitis, left: Status: Acute (6) Peroneal tendinitis, left leg: Status: Acute Plan Worsening hypoxia related to COVID-19 Severe ARDS P to F ratio 75 Right now her O2 saturation is between 90 to 91%, to decrease her work of breathing and anxiety we will put her on BiPAP and Precedex before getting CTA chest today, repeat PO2 60.1 on 80% 55 L heated high, will repeat ABG after 1 hour on BiPAP Discontinue Eliquis and start Lovenox therapeutic regimen Continue IV Primaxin Added IV steroids methylprednisolone once daily for now She received Actemra(notes reviewed) We will monitor in [facility] as we do not have ICU beds at this point Pulmonary consult, case discussed with Dr. Magallon Continue Lasix 40 mg daily Patient does look euvolemic, no MARTINE Continue inhaler regimen and multivitamins Daughter and updated She is full code Venous Dopplers negative for DVT D-dimer is high due to severe COVID-19 related inflammation, no previously diagnosed underlying regnancy Her echo showed preserved action fraction with mild pulmonary hypertension Attestations Medical Necessity Statement*: Continue medical management Time Spent in Patient Care: 45mins Coding Level of Care Code Acute Ventilation Mechanic for [facility] Diagnoses Anxiety F41.9 Hypothyroidism E03.9 Acute respiratory failure with hypoxia J96.01 COVID-19 U07.1 Plantar fasciitis, left M72.2 Peroneal tendinitis, left leg M76.72
[2021-08-28] MEDS: diphenhydrAMINE 50 mg/mL SDV 1mL IVP (13:44)
--- NOTE | 2021-08-28 13:45 | P.CONIM_ITS ---
Providers/Reason For Consult Consulting Physician/Specialty*: Howard Leyva MD / Pulmonary Critical Care Reason for Consult*: Acute hypoxic respiratory failure secondary to ARDS due to COVID-19 pneumonia requiring high flow nasal cannula Requesting Physician: Brendan White MD Attending Physician: Brendan White MD Primary Care Provider: Philippe Garg MD History of Present Illness History of Present Illness Renetta Uriostegui is a 61 year old female with past medical history of hypertension, hypothyroidism, anxiety who was positive for COVID-19 at an outside clinic last Monday(08/09).?Since admission she was on high flow nasal cannula, completed 5-day remdesivir, 1 dose of Tocilizumab and currently on baricitinib she is on daily dexamethasone 6 mg. CTA 08/18/2021 did not show any PE. Echocardiogram normal systolic function with EF 70%. Yesterday night patient had an episode of desaturation and FiO2 has to be incre ased from 50% to 80%. Pulmonary consulted for worsening hypoxia. Spoke to patient at bedside Sitting in bed, appears somewhat anxious saturating 88% with high flow 80% FiO2 Does not want to discuss about the idea of possible intubation if deteriorates Bilateral venous Doppler negative for DVT she is already on Eliquis-we will switch to Lovenox and obtain a CTA to rule out any PE Her MRSA nares negative-, currently on imipenem for broader antibiotic coverage Other labs and imaging reviewed Review of Systems General: Reports: 10 or more systems reviewed and unremarkable except in HPI and below Medications/Allergies Home Medications Medication Instructions Recorded Confirmed Last Taken Type alprazolam 1 mg tablet 1 mg PO QID PRN 08/05/19 08/18/21 08/17/21 History carisoprodol 350 mg tablet 350 mg PO TID PRN 08/05/19 08/18/21 08/17/21 History ergocalciferol (vitamin D2) 1,250 50,000 unit PO Q7D 08/05/19 08/18/21 08/17/21 History mcg (50,000 unit) capsule furosemide 40 mg tablet (Lasix) 40 mg PO DAILY PRN 08/05/19 08/18/21 08/17/21 History levothyroxine 25 mcg capsule 25 mcg PO DAILY 08/05/19 08/18/21 08/17/21 History losartan 50 mg tablet 50 mg PO DAILY 08/05/19 08/18/21 08/17/21 History montelukast 10 mg tablet 10 mg PO DAILY 08/05/19 08/18/21 08/17/21 History pantoprazole 40 mg tablet,delayed 40 mg PO DAILY 08/05/19 08/18/21 08/17/21 History release potassium chloride 10 mEq 10 meq PO DAILY 08/05/19 08/18/21 08/17/21 History capsule,extended release topiramate 100 mg tablet 100 mg PO DAILY 08/05/19 08/18/21 08/04/19 History trazodone 100 mg tablet 200 mg PO BEDTIME 08/05/19 08/18/21 08/17/21 History mecobalamin (vitamin B12) 1,000 1,000 mcg PO DAILY 12/17/19 08/18/21 08/17/21 History mcg chewable tablet (B12 Active) night splint #1 ea 02/05/20 08/18/21 Unknown Rx [place] ankle braces, bilateral #1 ea 05/14/20 08/18/21 Unknown Rx Custom functional orthotics #1 ea 06/16/20 08/18/21 Unknown Rx albuterol sulfate 90 mcg/actuation 2 puff INHALATION Q4H PRN 08/18/21 08/18/21 08/17/21 History aerosol inhaler (Ventolin HFA) ascorbic acid (vitamin C) 500 mg 500 mg PO BID 08/18/21 08/18/21 08/17/21 History tablet (Vitamin C) aspirin 81 mg capsule 81 mg PO DAILY 08/18/21 08/18/21 08/17/21 History cefuroxime axetil 250 mg tablet 250 mg PO BID 08/18/21 08/18/21 08/17/21 History fexofenadine 180 mg PO BID 08/18/21 08/18/21 08/17/21 History fexofenadine 180 mg tablet 180 mg PO BID 08/18/21 08/18/21 08/17/21 History ([place] Allergy) fluticasone propionate 50 1 spray INTRANASAL DAILY 08/18/21 08/18/21 08/17/21 History mcg/actuation nasal spray,suspension magnesium 250 mg tablet 500 mg PO DAILY 08/18/21 08/18/21 08/17/21 History vitamin E acetate 134 mg (200 134 mg PO DAILY 08/18/21 08/18/21 08/17/21 History unit) capsule Allergies Allergy/AdvReac Type Severity Reaction Status Date / Time Everything Allergy ALGY-Swell Uncoded 08/05/19 13:39 Lip/Tongue/Throat Steroids Allergy ALGY-Swell Uncoded 08/05/19 13:38 Lip/Tongue/Throat Current Medications Generic Name Dose Route Start Last Admin Trade Name Anujq PRN Reason Stop Dose Admin Acetaminophen 650 mg 08/18/21 08:11 08/23/21 01:05 Acetaminophen 325 Mg Tablet PO 650 mg Q6H PRN Administration Mild/Mod Pain Or Temp >/= 101 Al Hydrox/Mg Hydrox/Simethicone 15 ml 08/18/21 11:07 08/24/21 21:57 Guur-Gvt-Clweqvlge-Pradeep 30 Ml Udc PO 15 ml Q6H PRN Administration INDIGESTION Alprazolam 1 mg 08/23/21 12:59 08/27/21 20:45 Alprazolam 1 Mg Tablet PO 1 mg QID PRN Administration Anxiety Ascorbic Acid 500 mg 08/28/21 09:00 08/28/21 09:03 Ascorbic Acid 500 Mg Tablet PO 500 mg DAILY LUISITO Administration Aspirin 81 mg 08/18/21 10:01 08/28/21 09:03 Aspirin 81 Mg Ec Tablet PO 81 mg DAILY LUISITO Administration Benzocaine 1 each 08/23/21 10:17 08/26/21 23:53 Cetylpyridinium Lozenge MUCOUS MEM 1 each Q2H PRN Administration SORE THROAT Benzonatate 200 mg 08/20/21 15:00 08/28/21 09:02 Benzonatate 100 Mg Capsule PO 200 mg TID LUISITO Administration Bisacodyl 10 mg 08/18/21 11:07 08/20/21 08:47 Bisacodyl 5 Mg Tablet PO 10 mg DAILY PRN Administration Constipation (see protocol) Protocol Budesonide 0.5 mg 08/20/21 20:00 08/28/21 09:15 Budesonide 0.5 Mg/2 Ml Neb INHALATION 0.5 mg BID.RESPIRATORY LUISITO Administration Carisoprodol 350 mg 08/23/21 12:58 08/27/21 20:45 Carisoprodol 350 Mg Tablet PO 350 mg TID PRN Administration Pain Ferrous Gluconate 324 mg 08/18/21 18:00 08/28/21 09:03 Ferrous Gluconate 324 Mg Tablet PO 324 mg BIDWM LUISITO Administration Fexofenadine HCl 180 mg 08/18/21 18:00 08/28/21 09:02 Fexofenadine 60 Mg Tablet PO 180 mg BID LUISITO Administration Fluticasone Propionate 1 spray 08/18/21 10:01 08/28/21 09:04 Fluticasone Nasal [place] 16gm Btl INTRANASAL Not Given DAILY LUISITO Furosemide 40 mg 08/28/21 08:00 08/28/21 09:02 Furosemide 20 Mg Tablet PO 40 mg DAILY@0800 LUISITO Administration Guaifenesin/Dextromethorphan 10 ml 08/23/21 12:59 08/28/21 12:51 Guaifenesin-Dextromethorphan Udc 10 Ml PO 10 ml Q4H PRN Administration COUGH Imipenem/Cilastatin Sodium 500 100 mls @ 200 mls/hr 08/27/21 11:00 08/28/21 07:21 mg/ Sodium Chloride IV Infused Q6H LUISITO Infusion Protocol Ipratropium [place] 0.5 mg 08/22/21 16:00 08/28/21 13:35 Ipratropium 0.5 Mg/2.5 Ml Neb INHALATION 0.5 mg Q4H.RESPIRATORY LUISITO Administration Lactulose 10 gm 08/18/21 11:07 08/20/21 21:45 Lactulose Oral Liq 20 Gm/30 Ml Udc PO 10 gm DAILY PRN Administration Constipation (see protocol) Protocol Lanolin 1 applic 08/20/21 02:29 08/20/21 02:34 Lanolin Oint 7 Gm TOPICAL 1 tube PRN PRN Administration DRYNESS Levalbuterol HCl 0.63 mg 08/22/21 13:37 08/23/21 13:18 Levalbuterol 0.63 Mg/3 Ml Neb INHALATION 0.63 mg Q4H.RESPIRATORY PRN Administration SHORTNESS OF BREATH Levalbuterol HCl 0.63 mg 08/22/21 16:00 08/28/21 13:35 Levalbuterol 0.63 Mg/3 Ml Neb INHALATION 0.63 mg Q4H.RESPIRATORY LUISITO Administration Levothyroxine Sodium 25 mcg 08/18/21 11:00 08/28/21 09:03 Levothyroxine 25 Mcg Tablet PO 25 mcg DAILY LUISITO Administration Montelukast Sodium 10 mg 08/19/21 09:00 08/28/21 09:03 Montelukast Sodium 10 Mg Tablet PO 10 mg DAILY LUISITO Administration Ondansetron HCl 4 mg 08/18/21 11:07 08/20/21 19:33 Ondansetron 2 Mg/Ml Sdv 2 Ml IVP 4 mg Q8H PRN Administration vomiting, or N/V if npo Pantoprazole Sodium 40 mg 08/18/21 10:01 08/28/21 09:[address] 40 Mg Tablet PO 40 mg DAILY LUISITO Administration Potassium Chloride 20 meq 08/28/21 09:00 08/28/21 09:03 Potassium Chloride Er 20 Meq Tablet PO 20 meq DAILY LUISITO Administration Senna/Docusate Sodium 1 tab 08/23/21 09:00 08/28/21 09:03 Sennosides-Docusate Tablet PO 1 tab DAILY LUISITO Administration Topiramate 100 mg 08/18/21 10:45 08/28/21 09:03 Topiramate 100 Mg Tablet PO 100 mg DAILY LUISITO Administration Trazodone HCl 200 mg 08/18/21 21:00 08/27/21 20:45 Trazodone 100 Mg Tablet PO 200 mg BEDTIME LUISITO Administration Zinc Gluconate 50 mg 08/18/21 10:01 08/28/21 09:03 Zinc Gluconate 50 Mg Tablet PO 50 mg DAILY LUISITO Administration PFSH Acute PFSH: Medical History Anxiety HTN (hypertension) Hypothyroidism Kidney disease Spinal stenosis Social History Smoking and tobacco status: never smoked Alcohol intake: never Caregiver/support person: Yes Lives independently: Yes Household members: spouse Housing: House Marital status: Vitals/I&O/Wt Last Vital Signs Temp 98.2 F 08/28/21 11:37 Pulse 91 08/28/21 11:37 Resp 16 08/28/21 11:37 BP 115/64 08/28/21 11:37 Pulse Ox 91 08/28/21 11:37 08/27/21 08/28/21 08/28/21 22:59 06:59 14:59 Intake Total 340 / 920 700 / 1620 580 / 580 Output Total 300 / 300 300 / 600 450 / 450 Balance 40 / 620 400 / 1020 130 / 130 Weight last 48 hrs Weight 226 lb 12.8 oz Physical Exam Narrative: EXAM NARRATIVE: PHYSICAL EXAM: General: lying in bed, sedated and intubated. 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 SKIN: no rash Urinary Catheter Management: Gomez: Cath Placed During This Visit: yes Reason for Continuing Indwelling Catheter: Other Urinary Catheter Date of Insertion: 08/18/21 Urinary Catheter Time of Insertion: 14:00 Data : 08/28/21 05:15 08/28/21 05:15 Other Labs: Radiology Impressions Chest CTA 08/18/21 06:12 IMPRESSION: 1. No sign of acute pulmonary embolism. 2. Bilateral pneumonia, likely due to COVID-19. Chest X-Ray 08/27/21 05:41 IMPRESSION: 1. Bilateral pulmonary opacifications consistent with pneumonia. Minimal improvement in the LEFT lung and mild progression throughout the RIGHT lung. 2. Mild cardiomegaly. Laboratory Results WBC 21.4 10^3/uL (4.0-10.0) H 08/28/21 05:15 RBC 4.08 10^6/uL (4.1-5.3) L 08/28/21 05:15 Hgb 12.0 g/dL (11.5-15.3) 08/28/21 05:15 Hct 37.3 % (37.0-47.0) 08/28/21 05:15 MCV 91.4 fl (81-99) 08/28/21 05:15 MCH 29.4 pg (28.0-34.0) 08/28/21 05:15 MCHC 32.2 g/dL (30.0-36.0) 08/28/21 05:15 RDW 13.9 % (12.1-15.1) 08/28/21 05:15 Plt Count 211 10^3/cmm (130-400) D 08/28/21 05:15 MPV 9.3 fL (7.4-10.4) 08/28/21 05:15 Neut % (Auto) 87.3 % 08/28/21 05:15 Lymph % (Auto) 6.3 % 08/28/21 05:15 Saunders % (Auto) 3.4 % 08/28/21 05:15 Eos % (Auto) 0.9 % 08/28/21 05:15 Baso % (Auto) 0.2 % 08/28/21 05:15 Neut # (Auto) 18.68 10^3/uL (1.8-7.7) H 08/28/21 05:15 Lymph # (Auto) 1.4 10^3/uL (0.8-4.8) 08/28/21 05:15 Saunders # (Auto) 0.7 10^3/uL (0.2-0.9) 08/28/21 05:15 Eos # (Auto) 0.2 10^3/uL (0.0-0.8) 08/28/21 05:15 Baso # (Auto) 0.1 10^3/uL (0.0-0.1) 08/28/21 05:15 Nucleated RBC % (auto) 0.1 % 08/28/21 05:15 Total Counted 100 (0-100) 08/25/21 05:04 Atypical Lymphs % 0.0 % (0-5) 08/25/21 05:04 Absolute Neutrophils 13.0 10^3/cmm (1.4-6.5) H 08/25/21 05:04 Segmented Neutrophils 58 % 08/25/21 05:04 Abs Segm Neuts (Man) 8.9 10/cmm (1.6-7.1) H 08/25/21 05:04 Band Neutrophils 27.0 % 08/25/21 05:04 Abs Band Neuts (Man) 4.1 10^3/cmm (0.0-1.2) H 08/25/21 05:04 Absolute Lymphocytes 2.0 10^3/cmm (1.2-3.4) 08/25/21 05:04 Lymphocytes (Manual) 13 % 08/25/21 05:04 Monocytes (Manual) 0.0 % 08/25/21 05:04 Absolute Monocytes 0.0 10^3/cmm (0.1-0.6) L 08/25/21 05:04 Eosinophils (Manual) 0 % 08/25/21 05:04 Absolute Eosinophils 0.0 10^3/cmm (0.0-0.7) 08/25/21 05:04 Basophils (Manual) 0.0 % 08/25/21 05:04 Absolute Basophils 0.0 10^3/cmm (0.0-0.2) 08/25/21 05:04 Myelocytes 2.0 % 08/25/21 05:04 Nucleated RBCs # 0.0 /100WBC 08/28/21 05:15 Platelet Estimate Normal (Normal) 08/25/21 05:04 D-Dimer >= 20.00 ug/mIFEU (0-0.59) H 08/25/21 05:04 Specimen Type Arterial 08/28/21 09:20 Sample Site Radial, right 08/28/21 09:20 ABG pH 7.42 (7.35-7.45) 08/28/21 09:20 ABG pCO2 37.1 mmHg (35-45) 08/28/21 09:20 ABG pO2 60.1 mmHg (80.0-100.0) L 08/28/21 09:20 ABG HCO3 23.9 mmol/L (22-26) 08/28/21 09:20 ABG O2 Saturation 91.5 08/28/21 09:20 ABG Base Excess -0.4 mmol/L (-2.0-2.0) 08/28/21 09:20 Suraj Test Pos 08/28/21 09:20 A-a O2 Gradient 61.5 mmHg (5-10) H 08/28/21 09:20 Hematocrit 38.1 % (37-47) 08/28/21 09:20 Hgb O2 Saturation 90.4 % (95-100) L 08/28/21 09:20 Carboxyhemoglobin 0.7 %THgb (0.4-20.1) 08/28/21 09:20 Methemoglobin 0.5 % (0.4-1.5) 08/28/21 09:20 Total Hemoglobin 12.4 g/dL (12-16) 08/28/21 09:20 Sodium 139.0 mmol/L (131-143) 08/28/21 09:20 Potassium 3.6 mmol/L (3.5-5.0) 08/28/21 09:20 Glucose 164.0 mg/dL (70-115) H 08/28/21 09:20 Ionized Calcium 1.2 mmol/L (1.1-1.4) 08/27/21 23:45 O2 Delivery Device Nc 08/28/21 09:20 O2 Liters/Min 55.0 % 08/28/21 09:20 FiO2 80.0 % 08/28/21 09:20 Artificial Teeth Inspector ID [place] 08/28/21 09:20 Sodium 139 mmol/L (136-145) 08/28/21 05:15 Potassium 3.9 mmol/L (3.5-5.1) 08/28/21 05:15 Chloride 106 mmol/L (98-107) 08/28/21 05:15 Carbon Dioxide 22 mmol/L (22-29) 08/28/21 05:15 Anion Gap 14.9 (5-19) 08/28/21 05:15 BUN 13 mg/dL (6-20) 08/28/21 05:15 Creatinine 0.6 mg/dL (0.5-0.9) 08/28/21 05:15 GFR Calculation 102.3 mL/min (90-130) 08/28/21 05:15 Glucose 102 mg/dL (65-115) 08/28/21 05:15 Calculated Osmolality 288 mOsm/kg (285-295) 08/28/21 05:15 Lactic Acid 1.3 mmol/L (0.5-2.2) 08/18/21 06:49 Calcium 9.1 mg/dL (8.5-10.5) 08/28/21 05:15 Phosphorus 2.7 mg/dL (2.5-4.5) 08/19/21 04:08 Magnesium 2.2 mg/dL (1.7-2.3) 08/19/21 04:08 Iron 12 ug/dL (37-145) L 08/18/21 05:41 TIBC 249 mcg/dl 08/18/21 05:41 % Saturation 4.8 % (20-50) L 08/18/21 05:41 Unsat Iron Binding 237 ug/dL (112-347) 08/18/21 05:41 Total Bilirubin 0.2 mg/dL (0.15-1.2) 08/27/21 04:36 AST 34 U/L (0-32) H 08/27/21 04:36 ALT 19 U/L (0-33) 08/27/21 04:36 Alkaline Phosphatase 129 IU/L (35-105) H 08/27/21 04:36 Lactate Dehydrogenase 783 U/L (135-214) H 08/18/21 05:41 Creatine Kinase 628 U/L (26-192) H* 08/18/21 05:41 Troponin T Gen 5 ng/L 31 ng/L (0-10) H 08/27/21 07:25 C-Reactive Protein 5.3 mg/L (0.0-4.9) H 08/25/21 05:04 NT-Pro-B Natriuret Pep 226 pg/mL (0-125) H 08/18/21 05:41 NT-Pro-B Natriuret Pep 242 pg/mL (0-125) H 08/18/21 05:41 Total Protein 4.9 g/dL (6.6-8.7) L 08/27/21 04:36 Albumin 3.2 g/dL (3.5-5.2) L 08/27/21 04:36 Globulin 1.7 g/dL (1.3-4.6) 08/27/21 04:36 Procalcitonin 0.10 ng/mL (0-0.5) 08/27/21 04:36 TSH 1.07 uIU/mL (0.27-4.20) 08/18/21 05:41 Urine Color Yellow (Yellow) 08/23/21 03:30 Urine Appearance Sl cloudy (CLEAR) A 08/23/21 03:30 Urine pH 6 (5-7) 08/23/21 03:30 Ur Specific [place] 1.010 (1.005-1.030) 08/23/21 03:30 Urine Protein 1+ (Negative) H 08/23/21 03:30 Urine Glucose (UA) Norm (Normal) 08/23/21 03:30 Urine Ketones 1+ (Negative) H 08/23/21 03:30 Urine Blood 3+ (Negative) H 08/23/21 03:30 Urine Nitrate Negative (Negative) 08/23/21 03:30 Urine Bilirubin Neg (Negative) 08/23/21 03:30 Urine Urobilinogen Norm mg/dL (Negative) 08/23/21 03:30 Ur Leukocyte Esterase 1+ (Negative) H 08/23/21 03:30 Urine RBC Too numerous to cnt /hpf (0-2) H 08/23/21 03:30 Urine WBC >100 /hpf (0-5) H 08/23/21 03:30 Ur Squamous Epith Cells 0-4 /hpf (0-5) H 08/23/21 03:30 Amorphous Sediment Not Reportable 08/23/21 03:30 Urine Bacteria 2+ /hpf (NONE) H 08/23/21 03:30 A&P Assessment and plan (1) Acute respiratory failure with hypoxia: Status: Acute (2) COVID-19: Status: Acute (3) HTN (hypertension): Status: Acute (4) Hypothyroidism: Status: Acute (5) Acute respiratory distress syndrome (ARDS) due to 2019 novel coronavirus: Status: Acute Plan #Acute hypoxic respiratory failure secondary to ARDS due to COVID-19 pneumonia #Hypertension #Hypothyroidism -Worsening hypoxia-saturating 88 to 90% on high flow nasal cannula 55 L 80% increased FiO2 to 90% -ABG showed PaO2 60-PF ratio 75 -We will start on Precedex for anxiety -Completed 5-day course of remdesivir, dexamethasone, 1 dose of Tocilizumab, currently on baricitinib - Continue incentive spirometry Acapella - CTA 08/18/2021 was negative for pulmonary embolism but secondary to markedly elevated dimer on full dose anticoagulation.? Currently on Eliquis 5 mg twice daily-switch to Lovenox and repeat CTA -Bilateral lower extremity DVT negative for PE - Bacterial antigens, MRSA negative - Echocardiogram demonstrated preserved EF, mild pulmonary hypertension -Worsening leukocytosis with worsening FiO2 requirements-chest x-ray shows some more consolidation on the left.? yesterday broaden antibiotic coverage from Rocephin to Primaxin due to concern for secondary bacterial infection.? We will discontinue her Rocephin, and place her on Primaxin today.? Send for sputum culture sent and add vancomycin. possibel PCP pneumonia given pt immunosuppresion - will start on bactrum / steroids. send MRSA nares, sputum cultures and Induced sputum for PCP -Currently on Lasix 40 mg daily -DVT prophylaxis Lovenox -Regular diet -Low threshold for intubation Patient conveyed to hospitalist, RN, RT taking care of the patient Consult Attestations Medical Necessity Statement: Acute hypoxic respiratory failure secondary to ARDS due to COVID-19 pneumonia-worsening FiO2 requirements suspect PE/PCP pneumonia/bacterial pneumonia-low threshold for intubation Time Spent in Patient Care: Greater than 35 minutes (>than 50% of time spent in counselling and/or direct pt care on unit) . Critical Care Time: The high probability of a clinically significant, sudden or life threatening deterioration of the patient's [respiratory system(s) required my full and direct attention, intervention and personal management. The critical care time is as shown. This time is in addition to time spent performing any reported procedures but includes the following: [x] Data and vital sign review and interpretation [x] Patient assessment, examination and intervention [x] Documentation [x] Medication orders and management Critical Care Time (min): 50 Coding Level of Care Code New Pt Acute Political Science Research Assistant for Chg Fwd Patient Type New History Comprehensive Exam Comprehensive Medical Decision Making High Complexity Diagnoses Acute respiratory failure with hypoxia J96.01 COVID-19 U07.1 HTN (hypertension) I10 Hypothyroidism E03.9 Acute respiratory distress syndrome (ARDS) due to 2019 novel coronavirus U07.1; J80 Time Spent (min) 50
[2021-08-28] MEDS: iodixanol 320 mg/mL 100mL Btl IV (14:35)
[2021-08-28] MEDS: DEXTROSE 5% IV (17:10)
[2021-08-28] MEDS: predniSONE 20 mg Tablet 40 MG PO (17:10)
[2021-08-28] MEDS: SULFAMETHOXAZOLE TRIMETH IV (17:10)
[2021-08-28 17:51] LABS: ABG PCO2 39.3 mmHg (35-45); ABG PH Result 7.41 (7.35-7.45); Base Excess ABG 0.2 mmol/L (-2.0-2.0); Blood Gas Allen Test Pos; Blood Gas Sample Type Arterial; HCO3 ABG 24.8 mmol/L (22-26); PO2 ABG 90.4 mmHg (80.0-100.0)
[2021-08-28 17:54] LABS: Blood Gas Operator Identificat MONRO; Blood Gas Sample Site Radial, right; Oxygen Device NC
[2021-08-28] MEDS: simethicone 80 mg Chew PO (19:33)
--- NOTE | 2021-08-28 20:07 | PC.NURSE ---
Shift Note Frequent safety and comfort rounds continue. Orders and/or nursing care completed as indicated. Patient monitored for response to intervention and treatment(s). Education provided includes heated high flow 40 l; 100%fio2, coughing and deep breathing exercises, mucinex for frequent cough, iv antibiotics. Patient and/or c s s representative verbaliZes understanding. Will continue to monitor.
[2021-08-28] MEDS: vancomycin 1,250 MG/250 ML PIGGYBACK 250 MG IV (21:09)
[2021-08-28] MEDS: trazodone 100 mg Tablet 200 MG PO (21:10)
[2021-08-28] MEDS: cetylpyridinium Lozenge 1 EACH MUCOUS MEM (21:10)
[2021-08-28] MEDS: enoxaparin 100 mg/mL Syringe SUBCUT (21:11)
[2021-08-28] MEDS: LORazepam 2 mg/mL INJ 1 mL IVP (23:17)
[2021-08-29] VITALS (65 sets, daily range): BP systolic 102–188; BP diastolic 53–107; PULSE 0–116; RESP 16–34; TEMP 36.7; O2SAT 85–99
--- NOTE | 2021-08-29 00:30 | PC.NURSE ---
Patient arrived to ICU at approximately 0000. Patient is on bipap currently.
[2021-08-29] MEDS: DEXTROSE 5% IV ×3 (00:50→18:59)
[2021-08-29] MEDS: SULFAMETHOXAZOLE TRIMETH IV ×3 (00:50→18:59)
--- NOTE | 2021-08-29 01:49 | PC.NURSE ---
Called daughter Belinda Chapman and updated family on patients condition. Patient is resting comfortably on 100% fio2 bipap.
[2021-08-29] MEDS: vancomycin 1,250 MG/250 ML PIGGYBACK 250 MG IV ×3 (01:58→20:32)
[2021-08-29] MEDS: levalbuterol 0.63 mg/3 mL Neb INHALATION ×6 (03:24→23:27)
[2021-08-29] MEDS: ipratropium 0.5 mg/2.5 mL Neb INHALATION ×6 (03:24→23:27)
[2021-08-29] MEDS: LORazepam 2 mg/mL INJ 1 mL IVP ×2 (04:00)
[2021-08-29 04:21] LABS: ABG PCO2 44.5 mmHg (35-45); ABG PH Result 7.34 (7.35-7.45); Arterial Blood Gas Hematocrit 38.5 % (37-47); Base Excess ABG -1.7 mmol/L (-2.0-2.0); Blood Gas Sample Site Radial, left; Blood Gas Sample Type Arterial; HCO3 ABG 24.2 mmol/L (22-26); Oxygen Device BIPAP; PO2 ABG 84.3 mmHg (80.0-100.0)
[2021-08-29 04:41] LABS: Basophils # 0.1 10^3/uL (0.0-0.1); Basophils % 0.2 %; Hemoglobin 12.1 g/dL (11.5-15.3); Lymphocytes # 0.9 10^3/uL (0.8-4.8); Mean Corpuscular HGB Conc 31.8 g/dL (30.0-36.0); Mean Corpuscular Volume 91.1 fl (81-99); Monocytes # 0.6 10^3/uL (0.2-0.9); Monocytes % 2.1 %; Neutrophils # 27.52 10^3/uL (1.8-7.7); Neutrophils % 92.9 %; Nucleated Red Blood Cells % 0 %; Platelet Count 184 10^3/cmm (130-400); Red Blood Count 4.17 10^6/uL (4.1-5.3); Red Cell Distribution Width 13.6 % (12.1-15.1); White Blood Count 29.6 10^3/uL (4.0-10.0)
[2021-08-29 05:01] LABS: Blood Urea Nitrogen 11 mg/dL (6-20); Calcium 8.4 mg/dL (8.5-10.5); Carbon Dioxide 23 mmol/L (22-29); Chloride 101 mmol/L (98-107); Glomerular Filtration Rate 102.3 mL/min (90-130); Glucose 192 mg/dL (65-115); Osmolality Calculated 285 mOsm/kg (285-295); Sodium 135 mmol/L (136-145)
[2021-08-29 05:05] LABS: Anion Gap 14.9 (5-19); Potassium 3.9 mmol/L (3.5-5.1)
[2021-08-29] MEDS: dexmedeTOMIDine 0.9 % NaCL 400 MCG/100 ML PREMIX 25.87 MCG IV (06:06)
--- NOTE | 2021-08-29 06:07 | PC.NURSE ---
Patient remains very anxious even with PRN ativan. Called Dr. Sarmiento who rounded on patient, and received orders for precedex and morphine, patient states she cant take morphine. Precedex started to help control anxiety and rapid breathing. Patient still on bipap at 100% Fio2.
[2021-08-29 07:37] LABS: Glucose Point of Care 152 mg/dL (70-110)
[2021-08-29 08:57] LABS: Lactate Dehydrogenase 1166 U/L (135-214)
[2021-08-29] MEDS: cisatracurium 100 MG in sodium chloride 0.9% 50 ML 6.21 MG IV (09:12)
[2021-08-29] MEDS: fentaNYL 50 mcg/mL INJ 2mL IVP (09:16)
[2021-08-29] MEDS: midazolam 1 mg/mL INJ 2 mL 2 MG IVP (09:16)
[2021-08-29] MEDS: rocuronium 10 mg/mL INJ 5mL 100 MG IV (09:16)
[2021-08-29] MEDS: budesonide 0.5 mg/2 mL Neb INHALATION ×2 (09:27→19:47)
--- NOTE | 2021-08-29 10:00 | PC.NURSE ---
recieved this am pt on precedex somewhat sedated and calmer but still has respiration with rapid and distress noted Doctor Datar here talked with and daughter about status and overall prognosis at this time will proceed with time out for multiple procedures at this time including intubation and central line placement along with og placed after verification of placement bronch performed at this time
--- NOTE | 2021-08-29 10:36 | P.PCN_ITS ---
Procedure/Consent Time out: Time Out Performed: Yes Consent: Consent for Procedure: Consent obtained from other (indicate) (Next of kin ), Emergency procedure, Risks & Benefits reviewed and Agrees to proceed with procedure Procedure Narrative: Procedure time: 9:30 AM Procedure: Ultrasound-guided identification of the right internal jugular vein and placement of Central venous line Indication: Multiple medications including paralytics as patient is intubated and plan is to prone for acute hypoxemic respiratory failure [place] Treater(s): Howard Leyva MD Consent: Emergent Yes Time out called. [place] precautions applied. Site: Right internal jugular Catheter:7 Fr 20cm, Triple Lumen Sutured at: 18 cm Anesthesia: Patient just got intubated and received RSI and she is on propofol gtt. Description: Cap, eye protection, mask donned by myself and RN. Patient head down below feet (Trendelenburg 10 degrees). Sterile gown and gloves donned. Time out patient prepped with Chlorhexidine and full body fenestrated drape placed in sterile fashion. The vessel anatomy and patency was examined by ultrasound probe which was covered with sterile probe cover. Real time US guidance for target selection and real time US visualization of needle entry into vessel, after venous blood aspirated the guidewire was inserted through the needle and kept in situ, no ectopy, needle was removed. Placement of guidewire in the vein confirmed in relation to the adjacent artery in both in-plane and exx-jt-ggond US views. After appropriate dilation of entry site with dilator, removed dilator and Catheter was then advanced over the guidewire, no ectopy and guidewire was successfully removed. All ports drawn back and flushed with ease. Ports capped and locked. Catheter sutured at [address] Sterile dressing applied and chlorhexidine patch placed. Patient tolerated procedure well. Number of attempts:1 Dilator applied: 1, number of Dilations: 1 Placement Verified by: Blood draw from all ports and Ultrasound exam and Chest Xray EBL: 5-10 cc Complications: None Ultrasound guidance used: Yes. Acute Procedures Epistaxis Control: Time out performed: Yes
--- NOTE | 2021-08-29 10:36 | PM.ACPR ---
Procedure/Consent Consent: Consent for Procedure: Consent obtained from patient, Consent obtained from other (indicate) (), Emergency procedure, Risks & Benefits reviewed and Agrees to proceed with procedure Procedure Narrative: Endotracheal Intubation Procedure Note Indication for endotracheal intubation: Acute hypoxic respiratory failure secondary to ARDS due to COVID-19 pneumonia Time of the procedure: 0900 Consent: Verbal consent taken from patient, next of kin her and daughter Ms. Hoyt at bedside. The patient was in immediate danger, and required the procedure emergently. Sedation: Versed 2 mg, Etomidate 20 mg Paralytic: Rocuronium 100 mg Equipment: Glidoscope blade 3 View: Grade 1 Cricoid Pressure: No Number of attempts: 1 ETT location confirmed by direct visulization, ET fogging, Capnometer, bilateral breath sounds, Chest x ray Howard DatarMD Pulm/Critical Care Medicine
--- NOTE | 2021-08-29 10:37 | P.PN_ITS ---
Subjective Subjective: Interval history: -Patient seen at bedside multiple times today -Had to put her on BiPAP 100% yesterday night and patient has worsening anxiety and has to start on Precedex -CT showed filling defects in right pulmonary arteries as well as worsening groundglass opacities more on the left side -She was on BiPAP, and appeared to be very drowsy -Discussed with patient and her next of kin patient's , daughter Ms. Hoyt at bedside and decided to proceed with intubation, paralyzing and proning -Other labs and imaging reviewed Medications: Reviewed: Yes Vitals/I&O/Wt Last Vital Signs Temp 98.1 F 08/29/21 08:00 Pulse 92 08/29/21 09:28 Resp 16 08/29/21 10:05 BP 179/99 08/29/21 09:20 Pulse Ox 91 08/29/21 10:05 08/28/21 08/29/21 08/29/21 22:59 06:59 14:59 Intake Total 994 / 2054 1234 / 3288 Output Total 1400 / 3900 650 / 4550 Balance -406 / -1846 584 / -1262 Weight last 48 hrs Weight 228 lb 2 oz Weight 226 lb 12.8 oz Physical Exam Narrative: EXAM NARRATIVE: General: Drowsy and in respiratory distress HEENT: conj clear, EOMI, PERRL, mmm, Neck: supple, no meningismus Heme: no cervical LAP Pulmonary: Bilateral diffuse crepitations Cardiovascular: rrr, nl s1s2, no mrg Abdomen: soft, nt, nd, no r/g, bs+ Extremities: pulses +, no edema, no c/c : no CVA tenderness Skin: intact, no rash MSK: no back or neck pain Neurologic: grossly intact Urinary Catheter Management: Gomez: Cath Placed During This Visit: yes Reason for Continuing Indwelling Catheter: Accurate Measurement of Urinary Output in Critically Ill Patients Urinary Catheter Date of Insertion: 08/29/21 Urinary Catheter Time of Insertion: 01:18 Data : 08/29/21 03:55 08/29/21 03:55 Other Labs: Radiology Impressions Chest CTA 08/28/21 08:21 IMPRESSION: 1. Multiple small pulmonary emboli in 1st order through segmental branches of the right pulmonary artery. 2. Bilateral pneumonia, appears worsened when compared to the prior study. COMMENTS: Consistent with the [employer]'s Incidental Findings Committee white paper (J Am Margie Radiol 2018): Any incidental renal lesion less than 1 cm or classified as too small to characterize, or any incidental cystic renal lesion characterized as simple-appearing, is likely benign. No follow-up imaging is recommended for these lesions per consensus recommendations based on imaging criteria. Laboratory Results WBC 29.6 10^3/uL (4.0-10.0) H 08/29/21 03:55 RBC 4.17 10^6/uL (4.1-5.3) 08/29/21 03:55 Hgb 12.1 g/dL (11.5-15.3) 08/29/21 03:55 Hct 38.0 % (37.0-47.0) 08/29/21 03:55 MCV 91.1 fl (81-99) 08/29/21 03:55 MCH 29.0 pg (28.0-34.0) 08/29/21 03:55 MCHC 31.8 g/dL (30.0-36.0) 08/29/21 03:55 RDW 13.6 % (12.1-15.1) 08/29/21 03:55 Plt Count 184 10^3/cmm (130-400) 08/29/21 03:55 MPV 10.0 fL (7.4-10.4) 08/29/21 03:55 Neut % (Auto) 92.9 % 08/29/21 03:55 Lymph % (Auto) 3.0 % 08/29/21 03:55 [place] % (Auto) 2.1 % 08/29/21 03:55 Eos % (Auto) 0.0 % 08/29/21 03:55 Baso % (Auto) 0.2 % 08/29/21 03:55 Neut # (Auto) 27.52 10^3/uL (1.8-7.7) H 08/29/21 03:55 Lymph # (Auto) 0.9 10^3/uL (0.8-4.8) 08/29/21 03:55 [place] # (Auto) 0.6 10^3/uL (0.2-0.9) 08/29/21 03:55 Eos # (Auto) 0.0 10^3/uL (0.0-0.8) 08/29/21 03:55 Baso # (Auto) 0.1 10^3/uL (0.0-0.1) 08/29/21 03:55 Nucleated RBC % (auto) 0 % 08/29/21 03:55 Total Counted 100 (0-100) 08/25/21 05:04 Atypical Lymphs % 0.0 % (0-5) 08/25/21 05:04 Absolute Neutrophils 13.0 10^3/cmm (1.4-6.5) H 08/25/21 05:04 Segmented Neutrophils 58 % 08/25/21 05:04 Abs Segm Neuts (Man) 8.9 10/cmm (1.6-7.1) H 08/25/21 05:04 Band Neutrophils 27.0 % 08/25/21 05:04 Abs Band Neuts (Man) 4.1 10^3/cmm (0.0-1.2) H 08/25/21 05:04 Absolute Lymphocytes 2.0 10^3/cmm (1.2-3.4) 08/25/21 05:04 Lymphocytes (Manual) 13 % 08/25/21 05:04 Monocytes (Manual) 0.0 % 08/25/21 05:04 Absolute Monocytes 0.0 10^3/cmm (0.1-0.6) L 08/25/21 05:04 Eosinophils (Manual) 0 % 08/25/21 05:04 Absolute Eosinophils 0.0 10^3/cmm (0.0-0.7) 08/25/21 05:04 Basophils (Manual) 0.0 % 08/25/21 05:04 Absolute Basophils 0.0 10^3/cmm (0.0-0.2) 08/25/21 05:04 Myelocytes 2.0 % 08/25/21 05:04 Nucleated RBCs # 0.0 /100WBC 08/29/21 03:55 Platelet Estimate Normal (Normal) 08/25/21 05:04 D-Dimer >= 20.00 ug/mIFEU (0-0.59) H 08/25/21 05:04 Specimen Type Arterial 08/29/21 11:10 Sample Site Brachial, left 08/29/21 11:10 ABG pH 7.31 (7.35-7.45) L 08/29/21 11:10 ABG pCO2 53.1 mmHg (35-45) H 08/29/21 11:10 ABG pO2 64.3 mmHg (80.0-100.0) L 08/29/21 11:10 ABG HCO3 26.8 mmol/L (22-26) H 08/29/21 11:10 ABG O2 Saturation 91.5 08/28/21 09:20 ABG Base Excess -0.1 mmol/L (-2.0-2.0) 08/29/21 11:10 Suraj Test Pos 08/29/21 11:10 A-a O2 Gradient 61.5 mmHg (5-10) H 08/28/21 09:20 Hematocrit 35.8 % (37-47) L 08/29/21 11:10 Hgb O2 Saturation 90.4 % (95-100) L 08/28/21 09:20 Carboxyhemoglobin 0.7 %THgb (0.4-20.1) 08/28/21 09:20 Methemoglobin 0.5 % (0.4-1.5) 08/28/21 09:20 Total Hemoglobin 12.4 g/dL (12-16) 08/28/21 09:20 Sodium 139.0 mmol/L (131-143) 08/28/21 09:20 Potassium 3.6 mmol/L (3.5-5.0) 08/28/21 09:20 Glucose 164.0 mg/dL (70-115) H 08/28/21 09:20 Ionized Calcium 1.2 mmol/L (1.1-1.4) 08/27/21 23:45 O2 Delivery Device Vent 08/29/21 11:10 O2 Liters/Min 50.0 % 08/28/21 17:41 FiO2 100.0 % 08/29/21 11:10 Tidal Volume 0.42 08/29/21 11:10 PEEP 14.0 cmH20 08/29/21 11:10 Critical Care Specialist ID Cak 08/29/21 11:10 Sodium 135 mmol/L (136-145) L 08/29/21 03:55 Potassium 3.9 mmol/L (3.5-5.1) 08/29/21 03:55 Chloride 101 mmol/L (98-107) 08/29/21 03:55 Carbon Dioxide 23 mmol/L (22-29) 08/29/21 03:55 Anion Gap 14.9 (5-19) 08/29/21 03:55 BUN 11 mg/dL (6-20) 08/29/21 03:55 Creatinine 0.6 mg/dL (0.5-0.9) 08/29/21 03:55 GFR Calculation 102.3 mL/min (90-130) 08/29/21 03:55 Glucose 192 mg/dL (65-115) H 08/29/21 03:55 POC Glucose 131 mg/dL (70-110) H 08/29/21 11:26 Calculated Osmolality 285 mOsm/kg (285-295) 08/29/21 03:55 Lactic Acid 1.3 mmol/L (0.5-2.2) 08/18/21 06:49 Calcium 8.4 mg/dL (8.5-10.5) L 08/29/21 03:55 Phosphorus 2.7 mg/dL (2.5-4.5) 08/19/21 04:08 Magnesium 2.2 mg/dL (1.7-2.3) 08/19/21 04:08 Iron 12 ug/dL (37-145) L 08/18/21 05:41 TIBC 249 mcg/dl 08/18/21 05:41 % Saturation 4.8 % (20-50) L 08/18/21 05:41 Unsat Iron Binding 237 ug/dL (112-347) 08/18/21 05:41 Total Bilirubin 0.2 mg/dL (0.15-1.2) 08/27/21 04:36 AST 34 U/L (0-32) H 08/27/21 04:36 ALT 19 U/L (0-33) 08/27/21 04:36 Alkaline Phosphatase 129 IU/L (35-105) H 08/27/21 04:36 Lactate Dehydrogenase 1166 U/L (135-214) H 08/29/21 03:55 Creatine Kinase 628 U/L (26-192) H* 08/18/21 05:41 Troponin T Gen 5 ng/L 31 ng/L (0-10) H 08/27/21 07:25 C-Reactive Protein 5.3 mg/L (0.0-4.9) H 08/25/21 05:04 NT-Pro-B Natriuret Pep 226 pg/mL (0-125) H 08/18/21 05:41 NT-Pro-B Natriuret Pep 242 pg/mL (0-125) H 08/18/21 05:41 Total Protein 4.9 g/dL (6.6-8.7) L 08/27/21 04:36 Albumin 3.2 g/dL (3.5-5.2) L 08/27/21 04:36 Globulin 1.7 g/dL (1.3-4.6) 08/27/21 04:36 Procalcitonin 0.10 ng/mL (0-0.5) 08/27/21 04:36 TSH 1.07 uIU/mL (0.27-4.20) 08/18/21 05:41 Urine Color Yellow (Yellow) 08/23/21 03:30 Urine Appearance Sl cloudy (CLEAR) A 08/23/21 03:30 Urine pH 6 (5-7) 08/23/21 03:30 Ur Specific [place] 1.010 (1.005-1.030) 08/23/21 03:30 Urine Protein 1+ (Negative) H 08/23/21 03:30 Urine Glucose (UA) Norm (Normal) 08/23/21 03:30 Urine Ketones 1+ (Negative) H 08/23/21 03:30 Urine Blood 3+ (Negative) H 08/23/21 03:30 Urine Nitrate Negative (Negative) 08/23/21 03:30 Urine Bilirubin Neg (Negative) 08/23/21 03:30 Urine Urobilinogen Norm mg/dL (Negative) 08/23/21 03:30 Ur Leukocyte Esterase 1+ (Negative) H 08/23/21 03:30 Urine RBC Too numerous to cnt /hpf (0-2) H 08/23/21 03:30 Urine WBC >100 /hpf (0-5) H 08/23/21 03:30 Ur Squamous Epith Cells 0-4 /hpf (0-5) H 08/23/21 03:30 Amorphous Sediment Not Reportable 08/23/21 03:30 Urine Bacteria 2+ /hpf (NONE) H 08/23/21 03:30 Micro: Microbiology 08/28/21 06:35 Gram Stain - Final Sputum - Expectorated Sputum A&P Assessment and plan (1) Acute respiratory failure with hypoxia: Status: Acute (2) COVID-19: Status: Acute (3) HTN (hypertension): Status: Acute (4) Hypothyroidism: Status: Acute (5) Acute respiratory distress syndrome (ARDS) due to 2019 novel coronavirus: Status: Acute (6) Anxiety: Status: Acute (7) Pulmonary embolism associated with COVID-19: Status: Acute (8) Goals of care, counseling/discussion: Status: Acute Plan #Acute hypoxic respiratory failure secondary to ARDS due to COVID-19 pneumonia #Pulmonary embolism #Possible PCP pneumonia #Hypertension #Hypothyroidism -Worsening hypoxia-saturating 88 to 90% on BiPAP 16/6 FiO2 100% -Intubated, sedated with fentanyl, Versed, propofol -ABG 7.3 1/53/64/26/91% on CMV 420/14/100 % - plan is to paralyze and prone -Completed 5-day course of remdesivir, dexamethasone, 1 dose of Tocilizumab, and received baricitinib few doses - CTA 08/18/2021 was negative for pulmonary embolism but secondary to markedly elevated dimer on full dose anticoagulation with Lovenox later switched to Eliquis 5 mg twice daily- -due to worsening FiO2 requirements yesterday CTA was repeated 08/28/2021 which showed multiple small pulmonary emboli in first order to segmental branches of right pulmonary artery and worsening bilateral pneumonia -Eliquis switched to Lovenox therapeutic dose again -Bilateral lower extremity DVT negative for PE -As patient received steroids, Tocilizumab, baricitinib-suspicious for PCP pneumonia due to immunosuppression -Performed bronchoscopy post intubation and send BAL from left upper lobe for Gram stain and cultures, fungal cultures, PCP PCR-currently broadly covered with vancomycin, Primaxin, bactrum / steroids. send MRSA nares. - Echocardiogram demonstrated preserved EF, mild pulmonary hypertension -Currently on Lasix 40 mg daily-monitor input output/electrolytes/renal functions and try to keep net negative -DVT prophylaxis Lovenox -GI prophylaxis: PPI-senna docusate for BR -N.p.o. for today -Full code -Family updated at bedside and later over phone-next of kin her Mr. Moody Miller and patient's daughter Ms. Hoyt were explained everything in detail at bedside regarding the need for intubation due to worsening FiO2, presence of PE requiring full dose anticoagulation, suspicious for PCP pneumonia versus worsening ARDS due to COVID-19 pneumonia-need for bronchoscopy for BAL- they verbalized understanding and agreed with the plan. Given opportunity to ask any questions and answered. Patient conveyed to hospitalist, RN, RT taking care of the patient Attestations Medical Necessity Statement*: Acute hypoxic respiratory failure secondary to ARDS due to COVID-19 pneumonia/pulmonary embolism/possible PCP pneumonia req uiring mechanical ventilation and close monitoring in ICU Time Spent in Patient Care: Greater than 35 minutes (>than 50% of time spent in counselling and/or direct pt care on unit) . Critical Care Time: The high probability of a clinically significant, sudden or life threatening deterioration of the patient's [respiratory, infectious system(s) required my full and direct attention, intervention and personal management. The critical care time is as shown. This time is in addition to time spent performing any reported procedures but includes the following: [x] Data and vital sign review and interpretation [x] Patient assessment, examination and intervention [x] Documentation [x] Medication orders and management Critical Care Time (min): 90 Coding Level of Care Code Established Pt Acute Preschool Paraprofessional for Chg Fwd Patient Type Established History Comprehensive Exam Comprehensive Medical Decision Making High Complexity Diagnoses Acute respiratory failure with hypoxia J96.01 COVID-19 U07.1 HTN (hypertension) I10 Hypothyroidism E03.9 Acute respiratory distress syndrome (ARDS) due to 2019 novel coronavirus U07.1; J80 Anxiety F41.9 Pulmonary embolism associated with COVID-19 U07.1; I26.99 Goals of care, counseling/discussion Z71.89 Time Spent (min) 90
--- NOTE | 2021-08-29 10:41 | XRR_ITS ---
PROCEDURE INFORMATION: Exam: XR Chest Exam date and time: 08/29/2021 10:41 AM Age: 61 years old Clinical indication: Device placement; Ett placement (vent status); Patient HX: Et, og tube placement TECHNIQUE: Imaging protocol: XR of the chest. Views: 1 view. Total images: 1 COMPARISON: CR XR chest 1V portable [id number] 08/27/2021 5:47 AM FINDINGS: Tubes, catheters and devices: An endotracheal tube is present, terminating above the jasper by 6-1/2 cm. NG tube seen entering stomach with tip not visualized. A right internal jugular central venous catheter is present, with its tip overlying the region of the superior vena cava. Lungs: Bilateral pulmonary opacities are again noted with the left-sided opacities showing interval worsening. Pleural spaces: Unremarkable. No pleural effusion. No pneumothorax. Heart/Mediastinum: Heart size is stable when compared to the prior exam. Bones/joints: Osseous structures are unchanged from the prior exam. XR/XR chest 1V portable [id number] IMPRESSION: 1. An endotracheal tube is present, terminating above the jasper by 6-1/2 cm. 2. NG tube seen entering stomach with tip not visualized. 3. A right internal jugular central venous catheter is present, with its tip overlying the region of the superior vena cava. 4. Bilateral pulmonary opacities are again noted with the left-sided opacities showing interval worsening.
--- NOTE | 2021-08-29 10:50 | PC.SOCIAL ---
IMM Not Updated Pg. 2 of IMM not updated; patient intubated this morning. Not anticipated to discharge within 48hours.
--- NOTE | 2021-08-29 11:14 | PM.ACPR ---
Procedure/Consent Time out: Time Out Performed: Yes Consent: Consent for Procedure: Consent obtained from other (indicate) (Next of kin ), Risks & Benefits reviewed and Agrees to proceed with procedure Procedure Narrative: Procedure: Flexible bronchoscopy with airway inspection, airway clearance of secretions and obtaining bronchoalveolar lavage sample Pre-Operative Diagnosis: Suspect PCP pneumonia Post-Operative Diagnosis: Same Indication: Persistent leukocytosis with chest x-ray showing worsening infiltrates in patient with ARDS due to COVID-19 pneumonia and and received steroids, Tocilizumab and baricitinib-suspect PCP pneumonia in patient received immunosuppression Anesthesia: Currently on Versed 3 mg gtt. and propofol gtt.-given 2 mg Versed push Pre-procedure Evaluation: Patient was evaluated clinically and ancillary testing reviewed. The risk of having active MTB infection is very low in my clinical judgement. ASA: 4 Malampati score: unable to evaluate due to presence of endotracheal tube Consent: Consents were obtained from [facility] and placed in the chart Procedure Details: Time out was performed by the procedure team and nursing staff. Vent support maintained on Fio2 100. The bronchoscope was introduced through the ETT. A bronchoscopic airway exam was performed to evaluate the visible tracheobronchial tree to the segmental level. Summary of Significant Findings: -Bronchoscope passed through ET tube, 6 ml 1% lidocaine instilled 2 mm each into the trachea, both right and left main bronchus. Distal trachea and main jasper visualized which were sharp and normal. Then the scope was passed through the right bronchial tree was assessed to include the right mainstem bronchus, RBI, and RUL/RML/RLL bronchi to the segmental and subsegmental levels. No active bleeding noted. Mucosa appeared normal. No secretions noted. Then the scope was left bronchial tree was assessed to include the left mainstem bronchus, KARLIE, Lingula, and LLL bronchi to the segmental and subsegmental level. No active bleeding noted. Mucosa appeared normal. Some clear secretions noted which were suctioned right away. BAL obtained from left upper lobe the bronchoscope was then removed and the procedure terminated. Estimated Blood Loss: None Specimens: Bronchoalveolar lavage was taken from left upper lobe and sent for Gram stain and bacterial cultures, fungal cultures, PCP PCR Complications:None; patient tolerated the procedure well. Disposition: Patient remains critically ill, intubated and stays in ICU Howard Leyva MD Pulmonary critical Care Medicine [facility] Acute Procedures Epistaxis Control: Time out performed: Yes
[2021-08-29 11:22] LABS: ABG PCO2 53.1 mmHg (35-45); ABG PH Result 7.31 (7.35-7.45); Arterial Blood Gas Hematocrit 35.8 % (37-47); Base Excess ABG -0.1 mmol/L (-2.0-2.0); Blood Gas Allen Test Pos; Blood Gas Operator Identificat CAK; Blood Gas Sample Site Brachial, left; Blood Gas Sample Type Arterial; Blood Gas Tidal Volume 0.42; HCO3 ABG 26.8 mmol/L (22-26); Oxygen Device VENT; PO2 ABG 64.3 mmHg (80.0-100.0)
[2021-08-29 11:30] LABS: Glucose Point of Care 131 mg/dL (70-110)
[2021-08-29] MEDS: ferrous gluconate 324 mg Tablet PO (11:34)
[2021-08-29] MEDS: predniSONE 20 mg Tablet 40 MG PO ×2 (11:35→17:40)
[2021-08-29] MEDS: zinc gluconate 50 mg Tablet PO (11:35)
[2021-08-29] MEDS: FUROsemide 20 mg Tablet 60 MG PO (11:35)
[2021-08-29] MEDS: pantoprazole DR 40 mg Tablet PO (11:36)
[2021-08-29] MEDS: montelukast sodium 10 mg Tablet PO (11:36)
[2021-08-29] MEDS: sennosides-docusate Tablet 1 TAB PO (11:36)
[2021-08-29] MEDS: levothyroxine 25 mcg Tablet PO (11:36)
[2021-08-29] MEDS: aspirin 81 mg EC Tablet PO (11:37)
[2021-08-29] MEDS: topiramate 100 mg Tablet PO (11:37)
[2021-08-29] MEDS: potassium chloride ER 20 mEq Tablet PO (11:37)
[2021-08-29] MEDS: ascorbic acid 500 mg Tablet PO (11:37)
[2021-08-29] MEDS: enoxaparin 100 mg/mL Syringe SUBCUT (11:39)
--- NOTE | 2021-08-29 13:36 | P.PN_ITS ---
Subjective Subjective: Interval history: Patient was transferred from CSU to ICU overnight for her anxiety related to hypoxia She was kept on BiPAP and Precedex This morning she was very fatigued and lethargic however able to follow verbal commands and understand questions appropriately, she was breathing above 35 consistently worsening leukocytosis, plan was devised to intubate her Initially she refused intubation, however after family meeting and discussing with next of kin and her daughter, patient decided to proceed with intubation and start proning process after paralyzing her Status post bronchoscopy by search and rescue officer negative fluid balance, no acute worsening of creatinine, afebrile, MRSA PCR requested yesterday vancomycin and Bactrim and prednisone were added along with Lovenox, CTA showed positive PE Vitals/I&O/Wt Last Vital Signs Temp 98.1 F 08/29/21 08:00 Pulse 86 08/29/21 12:00 Resp 20 H 08/29/21 11:32 BP 117/71 08/29/21 12:00 Pulse Ox 89 L 08/29/21 12:00 08/28/21 08/29/21 08/29/21 22:59 06:59 14:59 Intake Total 994 / 2054 1234 / 3288 634 / 634 Output Total 1400 / 3900 650 / 4550 Balance -406 / -1846 584 / -1262 634 / 634 Weight last 48 hrs Weight 103.476 kg Weight 102.875 kg Physical Exam Narrative: EXAM NARRATIVE: On first evaluation she was on BiPAP 100% Precedex at 1 Later she was intubated sedated paralyzed and proned Art line, central line and endotracheal tube in place 2/6 Looks euvolemic Bilateral breath sounds with crackles and rhonchi Soft abdomen Nonfocal neuro exam Fatigued and lethargic Tachypneic Gomez catheter in place draining yellow-colored urine Urinary Catheter Management: Gomez: Cath Placed During This Visit: yes Reason for Continuing Indwelling Catheter: Accurate Measurement of Urinary Output in Critically Ill Patients Urinary Catheter Date of Insertion: 08/29/21 Urinary Catheter Time of Insertion: 01:18 Data : 08/29/21 03:55 08/29/21 03:55 Micro: Microbiology 08/28/21 06:35 Gram Stain - Final Sputum - Expectorated Sputum Sputum Culture - Preliminary Yeast A&P Assessment and plan (1) Goals of care, counseling/discussion: Status: Acute (2) Pulmonary embolism associated with COVID-19: Status: Acute (3) Acute respiratory distress syndrome (ARDS) due to 2019 novel coronavirus: Status: Acute (4) HTN (hypertension): Status: Acute (5) Anxiety: Status: Acute (6) Hypothyroidism: Status: Acute (7) Acute respiratory failure with hypoxia: Status: Acute Plan Respiratory failure requiring mechanical ventilation related to COVID-19 Severe ARDS criteria Intubated sedated paralyzed and start proning session First proning session 08/29 Her P to F ratio was below 100 Art line, central line, intubation on 08/[address] Magallon Status post bronchoalveolar lavage 08/29, PCP PCR sent, she was started on Bactrim IV regimen on 08/28 Vancomycin added on 08/28 as well MRSA PCR requested, last week MRSA PCR was negative Antibiotics escalated She did receive 1 dose of Actemra Currently on therapeutic dose of Lovenox for her positive PE, CT chest revealed PE on 08/28 Currently on IV steroids, switch to IV Lasix to keep her in negative balance, she will get a lot of fluids because of use of multiple antimicrobials, 1 vial of Bactrim contains 500 mL of fluid GI prophylaxis PPI Chlorhexidine mouthwash N.p.o. for today Start tube feeding once she is supine Full code Family updated on daily basis, next of kin her updated by myself and search and rescue officer Please review pulmonology note for further detail Attestations Medical Necessity Statement*: Continue medical management Time Spent in Patient Care: 30mins Coding Level of Care Code Acute Inspector Filters for Chg Fwd Diagnoses Goals of care, counseling/discussion Z71.89 Pulmonary embolism associated with COVID-19 U07.1; I26.99 Acute respiratory distress syndrome (ARDS) due to 2019 novel coronavirus U07.1; J80 HTN (hypertension) I10 Anxiety F41.9 Hypothyroidism E03.9 Acute respiratory failure with hypoxia J96.01
[2021-08-29 14:08] LABS: Color, Bronc Wash Colorless; WBC Within 10% 10
[2021-08-29 14:09] LABS: PATH Referral Yes; RBC Side Within 10% 0
[2021-08-29] MEDS: FUROsemide 10 mg/mL SDV 10mL 60 MG IVP (14:14)
[2021-08-29] MEDS: lidocaine 1% INJ 20 mL 5 ML IV (14:15)
--- NOTE | 2021-08-29 14:36 | PC.NURSE ---
sedating and paralyzing preparing to prone pt at this time.
[2021-08-29 14:46] LABS: Apprearance, Bronch Wash Hazy (CLEAR); Total Cells Counted Bronch 200
[2021-08-29] MEDS: propofol 1,000 MG/100 ML INJ 24.83 MG IV ×3 (15:44→23:44)
--- NOTE | 2021-08-29 18:20 | NUR.SHIFT ---
Shift Note Frequent safety and comfort rounds continue. Orders and/or nursing care completed as indicated. Patient monitored for response to intervention and treatment of intubation and bronch Education provided includes[]. Patient in prone position at this time with biz monitor in use oral care done
[2021-08-29 18:27] LABS: Blood Gas Allen Test Pos; Blood Gas Operator Identificat CAK; Blood Gas Sample Type Arterial; Blood Gas Tidal Volume 0.42; Oxygen Device VENT; Potassium Level - ABG 4.5 mmol/L (3.5-5.0)
[2021-08-29 18:34] LABS: ABG PH Result 7.26 (7.35-7.45); Alveolar-Arterial Oxygen Gradi 55.2 mmHg (5-10); Arterial Blood Gas Hematocrit 36.8 % (37-47); Base Excess ABG -0.7 mmol/L (-2.0-2.0); Blood Gas Sample Site Radial, left; Carboxyhemoglobin 0.7 %THgb (0.4-20.1); HCO3 ABG 27.4 mmol/L (22-26); HGB O2 Sat 92.3 % (95-100); Ionized Calcium Level - ABG 1.3 mmol/L (1.1-1.4); Methemoglobin 1.6 % (0.4-1.5); Oxygen Saturation ABG 94.5; PO2 ABG 77.4 mmHg (80.0-100.0)
[2021-08-29 20:31] LABS: Vancomycin Trough 16.7 ug/mL (10-15)
[2021-08-29] MEDS: levoFLOXacin 750 mg Tablet PO (20:32)
[2021-08-30] VITALS (60 sets, daily range): BP systolic 101–137; BP diastolic 58–81; PULSE 66–90; RESP 24–29; TEMP 36.9–37.3; O2SAT 84–96
[2021-08-30] MEDS: SULFAMETHOXAZOLE TRIMETH IV ×3 (02:49→18:57)
[2021-08-30] MEDS: DEXTROSE 5% IV ×3 (02:49→18:57)
[2021-08-30] MEDS: cisatracurium 100 MG in sodium chloride 0.9% 50 ML 6.21 MG IV (02:50)
[2021-08-30] MEDS: levalbuterol 0.63 mg/3 mL Neb INHALATION ×6 (03:03→23:14)
[2021-08-30] MEDS: ipratropium 0.5 mg/2.5 mL Neb INHALATION ×6 (03:03→23:15)
--- NOTE | 2021-08-30 03:21 | PC.NURSE ---
Patient still proned and paralyzed. Vent compliance being maintained. Family updated on patients condition.
[2021-08-30] MEDS: propofol 1,000 MG/100 ML INJ 24.83 MG IV (04:13)
[2021-08-30 04:18] LABS: ABG PCO2 44.9 mmHg (35-45); ABG PH Result 7.39 (7.35-7.45); Arterial Blood Gas Hematocrit 35.3 % (37-47); Base Excess ABG 1.4 mmol/L (-2.0-2.0); Blood Gas Allen Test Pos; Blood Gas Sample Site Radial, left; Blood Gas Sample Type Arterial; Blood Gas Tidal Volume 0.42; HCO3 ABG 26.9 mmol/L (22-26); Oxygen Device VENT; PO2 ABG 65.1 mmHg (80.0-100.0)
[2021-08-30 05:27] LABS: Basophils # 0.1 10^3/uL (0.0-0.1); Basophils % 0.2 %; Eosinophils # 0.1 10^3/uL (0.0-0.8); Eosinophils % 0.2 %; Hematocrit 34.5 % (37.0-47.0); Hemoglobin 10.7 g/dL (11.5-15.3); Lymphocytes # 1.5 10^3/uL (0.8-4.8); Lymphocytes % 6.2 %; Mean Corpuscular Hemoglobin 29.6 pg (28.0-34.0); Mean Corpuscular Volume 95.3 fl (81-99); Monocytes # 1.3 10^3/uL (0.2-0.9); Monocytes % 5.1 %; Neutrophils # 21.31 10^3/uL (1.8-7.7); Neutrophils % 86.5 %; Nucleated Red Blood Cells % 0 %; Platelet Count 181 10^3/cmm (130-400); Red Blood Count 3.62 10^6/uL (4.1-5.3); Red Cell Distribution Width 14.3 % (12.1-15.1); White Blood Count 24.7 10^3/uL (4.0-10.0)
[2021-08-30] MEDS: vancomycin 1,250 MG/250 ML PIGGYBACK 250 MG IV ×3 (05:38→20:42)
[2021-08-30] MEDS: levoFLOXacin 750 mg Tablet PO (05:39)
[2021-08-30 05:59] LABS: Procalcitonin 0.05 ng/mL (0-0.5)
[2021-08-30 06:08] LABS: Alanine Aminotransferase 13 U/L (0-33); Albumin Level 3.1 g/dL (3.5-5.2); Alkaline Phosphatase 138 IU/L (35-105); Anion Gap 17.2 (5-19); Aspartate Amino Transferase 21 U/L (0-32); Blood Urea Nitrogen 12 mg/dL (6-20); C Reactive Protein 9.4 mg/L (0.0-4.9); Calcium 8.8 mg/dL (8.5-10.5); Carbon Dioxide 22 mmol/L (22-29); Chloride 101 mmol/L (98-107); Creatine Phosphokinase 256 U/L (26-192); Globulin 2.4 g/dL (1.3-4.6); Glomerular Filtration Rate 85.6 mL/min (90-130); Glucose 150 mg/dL (65-115); Magnesium 2.2 mg/dL (1.7-2.3); Osmolality Calculated 285 mOsm/kg (285-295); Potassium 4.2 mmol/L (3.5-5.1); Sodium 136 mmol/L (136-145); Total Bilirubin 0.2 mg/dL (0.15-1.2); Total Protein 5.5 g/dL (6.6-8.7); Triglycerides 174 mg/dL (0-150)
--- NOTE | 2021-08-30 07:34 | PC.NURSE ---
Family called unit for update. Update given.
[2021-08-30] MEDS: predniSONE 20 mg Tablet 40 MG PO ×2 (07:41→16:50)
[2021-08-30] MEDS: zinc gluconate 50 mg Tablet PO (07:42)
[2021-08-30] MEDS: pantoprazole DR 40 mg Tablet PO (07:42)
[2021-08-30] MEDS: topiramate 100 mg Tablet PO (07:42)
[2021-08-30] MEDS: ascorbic acid 500 mg Tablet PO (07:42)
[2021-08-30] MEDS: sennosides-docusate Tablet 1 TAB PO (07:42)
[2021-08-30] MEDS: ferrous gluconate 324 mg Tablet PO ×2 (07:42→16:47)
[2021-08-30] MEDS: levothyroxine 25 mcg Tablet PO (07:42)
[2021-08-30] MEDS: montelukast sodium 10 mg Tablet PO (07:42)
[2021-08-30] MEDS: aspirin 81 mg EC Tablet PO (07:43)
[2021-08-30] MEDS: potassium chloride ER 20 mEq Tablet PO (07:43)
[2021-08-30] MEDS: propofol 1,000 MG/100 ML INJ 31.04 MG IV ×5 (07:51→23:57)
[2021-08-30] MEDS: budesonide 0.5 mg/2 mL Neb INHALATION ×2 (08:01→19:28)
--- NOTE | 2021-08-30 08:54 | P.PN_ITS ---
Subjective Subjective: Interval history: -Patient seen at bedside -Sedated, paralyzed, proned and currently on 60% FiO2 saturating 92% -Requiring pressor possibly due to sedation -We'll continue with one more proning session tonight -Other labs and imaging reviewed Medications: Reviewed: Yes Vitals/I&O/Wt Last Vital Signs Temp 98.4 F 08/30/21 08:00 Pulse 77 08/30/21 08:14 Resp 24 H 08/30/21 08:29 BP 107/59 08/30/21 08:00 Pulse Ox 95 08/30/21 08:29 08/29/21 08/30/21 08/30/21 22:59 06:59 14:59 Intake Total 1038.237 / 2060.034 943.383 / 3003.417 488.617 / 488.617 Output Total 1000 / 1000 1550 / 2550 Balance 38.237 / 1060.034 -606.617 / 453.417 488.617 / 488.617 Weight last 48 hrs Weight 205 lb 6 oz Weight 228 lb 2 oz Physical Exam Narrative: EXAM NARRATIVE: PHYSICAL EXAM: General: lying in bed, sedated, intubated-in prone positioning HEENT:NCAT, PERRLA, EOMI Neck: Supple Lungs: Clear to auscultation Heart: s1/s2, RRR Abd: soft, NT, ND, BS + Normoactive Extremities: No edema CLINICAL PROJECT LEADER: sedated and limited CLINICAL PROJECT LEADER exam possible. SKIN: no rash LDA: # CVC: Right IJ 08/30/2021 Urinary Catheter Management: Gomez: Cath Placed During This Visit: yes Reason for Continuing Indwelling Catheter: Accurate Measurement of Urinary Output in Critically Ill Patients Urinary Catheter Date of Insertion: 08/29/21 Urinary Catheter Time of Insertion: 01:18 Data : 08/30/21 04:23 08/30/21 04:23 Other Labs: Radiology Impressions Chest CTA 08/28/21 08:21 IMPRESSION: 1. Multiple small pulmonary emboli in 1st order through segmental branches of the right pulmonary artery. 2. Bilateral pneumonia, appears worsened when compared to the prior study. COMMENTS: Consistent with the [employer]'s Incidental Findings Committee white paper (J Am Margie Radiol 2018): Any incidental renal lesion less than 1 cm or classified as too small to characterize, or any incidental cystic renal lesion characterized as simple-appearing, is likely benign. No follow-up imaging is recommended for these lesions per consensus recommendations based on imaging criteria. Chest X-Ray 08/29/21 10:41 IMPRESSION: 1. An endotracheal tube is present, terminating above the jasper by 6-1/2 cm. 2. NG tube seen entering stomach with tip not visualized. 3. A right internal jugular central venous catheter is present, with its tip overlying the region of the superior vena cava. 4. Bilateral pulmonary opacities are again noted with the left-sided opacities showing interval worsening. Laboratory Results WBC 24.7 10^3/uL (4.0-10.0) H 08/30/21 04:23 RBC 3.62 10^6/uL (4.1-5.3) L 08/30/21 04:23 Hgb 10.7 g/dL (11.5-15.3) L 08/30/21 04:23 Hct 34.5 % (37.0-47.0) L 08/30/21 04:23 MCV 95.3 fl (81-99) 08/30/21 04:23 MCH 29.6 pg (28.0-34.0) 08/30/21 04:23 MCHC 31.0 g/dL (30.0-36.0) 08/30/21 04:23 RDW 14.3 % (12.1-15.1) 08/30/21 04:23 Plt Count 181 10^3/cmm (130-400) 08/30/21 04:23 MPV 10.0 fL (7.4-10.4) 08/30/21 04:23 Neut % (Auto) 86.5 % 08/30/21 04:23 Lymph % (Auto) 6.2 % 08/30/21 04:23 [place] % (Auto) 5.1 % 08/30/21 04:23 Eos % (Auto) 0.2 % 08/30/21 04:23 Baso % (Auto) 0.2 % 08/30/21 04:23 Neut # (Auto) 21.31 10^3/uL (1.8-7.7) H 08/30/21 04:23 Lymph # (Auto) 1.5 10^3/uL (0.8-4.8) 08/30/21 04:23 [place] # (Auto) 1.3 10^3/uL (0.2-0.9) H 08/30/21 04:23 Eos # (Auto) 0.1 10^3/uL (0.0-0.8) 08/30/21 04:23 Baso # (Auto) 0.1 10^3/uL (0.0-0.1) 08/30/21 04:23 Nucleated RBC % (auto) 0 % 08/30/21 04:23 Total Counted 100 (0-100) 08/25/21 05:04 Atypical Lymphs % 0.0 % (0-5) 08/25/21 05:04 Absolute Neutrophils 13.0 10^3/cmm (1.4-6.5) H 08/25/21 05:04 Segmented Neutrophils 58 % 08/25/21 05:04 Abs Segm Neuts (Man) 8.9 10/cmm (1.6-7.1) H 08/25/21 05:04 Band Neutrophils 27.0 % 08/25/21 05:04 Abs Band Neuts (Man) 4.1 10^3/cmm (0.0-1.2) H 08/25/21 05:04 Absolute Lymphocytes 2.0 10^3/cmm (1.2-3.4) 08/25/21 05:04 Lymphocytes (Manual) 13 % 08/25/21 05:04 Monocytes (Manual) 0.0 % 08/25/21 05:04 Absolute Monocytes 0.0 10^3/cmm (0.1-0.6) L 08/25/21 05:04 Eosinophils (Manual) 0 % 08/25/21 05:04 Absolute Eosinophils 0.0 10^3/cmm (0.0-0.7) 08/25/21 05:04 Basophils (Manual) 0.0 % 08/25/21 05:04 Absolute Basophils 0.0 10^3/cmm (0.0-0.2) 08/25/21 05:04 Myelocytes 2.0 % 08/25/21 05:04 Nucleated RBCs # 0.0 /100WBC 08/30/21 04:23 Differential Comment Cancelled 08/29/21 11:00 Platelet Estimate Normal (Normal) 08/25/21 05:04 D-Dimer >= 20.00 ug/mIFEU (0-0.59) H 08/25/21 05:04 Specimen Type Arterial 08/30/21 04:00 Sample Site Radial, left 08/30/21 04:00 ABG pH 7.39 (7.35-7.45) 08/30/21 04:00 ABG pCO2 44.9 mmHg (35-45) 08/30/21 04:00 ABG pO2 65.1 mmHg (80.0-100.0) L 08/30/21 04:00 ABG HCO3 26.9 mmol/L (22-26) H 08/30/21 04:00 ABG O2 Saturation 94.5 08/29/21 18:16 ABG Base Excess 1.4 mmol/L (-2.0-2.0) 08/30/21 04:00 Suraj Test Pos 08/30/21 04:00 A-a O2 Gradient 55.2 mmHg (5-10) H 08/29/21 18:16 Hematocrit 35.3 % (37-47) L 08/30/21 04:00 Hgb O2 Saturation 92.3 % (95-100) L 08/29/21 18:16 Carboxyhemoglobin 0.7 %THgb (0.4-20.1) 08/29/21 18:16 Methemoglobin 1.6 % (0.4-1.5) H 08/29/21 18:16 Total Hemoglobin 12.0 g/dL (12-16) 08/29/21 18:16 Sodium 140.0 mmol/L (131-143) 08/29/21 18:16 Potassium 4.5 mmol/L (3.5-5.0) 08/29/21 18:16 Glucose 145.0 mg/dL (70-115) H 08/29/21 18:16 Ionized Calcium 1.3 mmol/L (1.1-1.4) 08/29/21 18:16 O2 Delivery Device Vent 08/30/21 04:00 O2 Liters/Min 50.0 % 08/28/21 17:41 FiO2 60.0 % 08/30/21 04:00 Tidal Volume 0.42 08/30/21 04:00 PEEP 6.0 cmH20 08/30/21 04:00 Financial Legal Assistant ID [email or web address] 08/30/21 04:00 Sodium 136 mmol/L (136-145) 08/30/21 04:23 Potassium 4.2 mmol/L (3.5-5.1) 08/30/21 04:23 Chloride 101 mmol/L (98-107) 08/30/21 04:23 Carbon Dioxide 22 mmol/L (22-29) 08/30/21 04:23 Anion Gap 17.2 (5-19) 08/30/21 04:23 BUN 12 mg/dL (6-20) 08/30/21 04:23 Creatinine 0.7 mg/dL (0.5-0.9) 08/30/21 04:23 GFR Calculation 85.6 mL/min (90-130) L 08/30/21 04:23 Glucose 150 mg/dL (65-115) H 08/30/21 04:23 POC Glucose 131 mg/dL (70-110) H 08/29/21 11:26 Calculated Osmolality 285 mOsm/kg (285-295) 08/30/21 04:23 Lactic Acid 1.3 mmol/L (0.5-2.2) 08/18/21 06:49 Calcium 8.8 mg/dL (8.5-10.5) 08/30/21 04:23 Phosphorus 2.7 mg/dL (2.5-4.5) 08/19/21 04:08 Magnesium 2.2 mg/dL (1.7-2.3) 08/30/21 04:23 Iron 12 ug/dL (37-145) L 08/18/21 05:41 TIBC 249 mcg/dl 08/18/21 05:41 % Saturation 4.8 % (20-50) L 08/18/21 05:41 Unsat Iron Binding 237 ug/dL (112-347) 08/18/21 05:41 Total Bilirubin 0.2 mg/dL (0.15-1.2) 08/30/21 04:23 AST 21 U/L (0-32) 08/30/21 04:23 ALT 13 U/L (0-33) 08/30/21 04:23 Alkaline Phosphatase 138 IU/L (35-105) H 08/30/21 04:23 Lactate Dehydrogenase 1166 U/L (135-214) H 08/29/21 03:55 Creatine Kinase 256 U/L (26-192) H 08/30/21 04:23 Troponin T Gen 5 ng/L 31 ng/L (0-10) H 08/27/21 07:25 C-Reactive Protein 9.4 mg/L (0.0-4.9) H 08/30/21 04:23 NT-Pro-B Natriuret Pep 226 pg/mL (0-125) H 08/18/21 05:41 NT-Pro-B Natriuret Pep 242 pg/mL (0-125) H 08/18/21 05:41 Total Protein 5.5 g/dL (6.6-8.7) L 08/30/21 04:23 Albumin 3.1 g/dL (3.5-5.2) L 08/30/21 04:23 Globulin 2.4 g/dL (1.3-4.6) 08/30/21 04:23 Triglycerides 174 mg/dL (0-150) H 08/30/21 04:23 Procalcitonin 0.05 ng/mL (0-0.5) 08/30/21 04:23 TSH 1.07 uIU/mL (0.27-4.20) 08/18/21 05:41 Urine Color Yellow (Yellow) 08/23/21 03:30 Urine Appearance Sl cloudy (CLEAR) A 08/23/21 03:30 Urine pH 6 (5-7) 08/23/21 03:30 Ur Specific [place] 1.010 (1.005-1.030) 08/23/21 03:30 Urine Protein 1+ (Negative) H 08/23/21 03:30 Urine Glucose (UA) Norm (Normal) 08/23/21 03:30 Urine Ketones 1+ (Negative) H 08/23/21 03:30 Urine Blood 3+ (Negative) H 08/23/21 03:30 Urine Nitrate Negative (Negative) 08/23/21 03:30 Urine Bilirubin Neg (Negative) 08/23/21 03:30 Urine Urobilinogen Norm mg/dL (Negative) 08/23/21 03:30 Ur Leukocyte Esterase 1+ (Negative) H 08/23/21 03:30 Urine RBC Too numerous to cnt /hpf (0-2) H 08/23/21 03:30 Urine WBC >100 /hpf (0-5) H 08/23/21 03:30 Ur Squamous Epith Cells 0-4 /hpf (0-5) H 08/23/21 03:30 Amorphous Sediment Not Reportable 08/23/21 03:30 Urine Bacteria 2+ /hpf (NONE) H 08/23/21 03:30 Fluid Color Cancelled 08/29/21 11:00 Fluid Appearance Cancelled 08/29/21 11:00 Fluid WBC Cancelled 08/29/21 11:00 Fluid RBC Cancelled 08/29/21 11:00 Fluid Tot Cell Count Cancelled 08/29/21 11:00 Fld Polynuclear WBCs # Cancelled 08/29/21 11:00 Fld Polynuclear WBCs % Cancelled 08/29/21 11:00 Fl Mononucl WBCs #(Auto) Cancelled 08/29/21 11:00 Fl Mononuclear % Auto Cancelled 08/29/21 11:00 Bronch Specimen Source L. lower lobe 08/29/21 11:00 Bronchial Fluid Color Colorless 08/29/21 11:00 Bronchial Fluid Appearance Hazy (CLEAR) 08/29/21 11:00 Bronchial Fluid WBC 400 /uL 08/29/21 11:00 Bronchial Fluid RBC 350 10^3/uL 08/29/21 11:00 Bronch Cells Counted 200 08/29/21 11:00 Bronchial Neutrophils 68.00 % (0.9-2.3) H 08/29/21 11:00 Bronchial Lymphocytes 11.00 % (10.71-12.91) 08/29/21 11:00 Bronchial Eosinophils 3.00 % (0.13-0.25) H 08/29/21 11:00 Bronchial Macrophages 18.00 % (83.6-86.8) L 08/29/21 11:00 Bronchial Diff Comment Yes 08/29/21 11:00 Vancomycin Trough 16.7 ug/mL (10-15) H 08/29/21 19:50 Micro: Microbiology 08/30/21 04:23 Blood Culture - Preliminary Blood SPECIMEN COLLECTED 08/30/21 04:23 Blood Culture - Preliminary Blood SPECIMEN COLLECTED 08/29/21 11:00 MRSA Culture - Final Nose 08/29/21 16:20 Gram Stain - Final Sputum - Endotracheal Tube Aspirate 08/29/21 11:00 Gram Stain - Final Lung Left Lower Lobe 08/28/21 06:35 Gram Stain - Final Sputum - Expectorated Sputum Sputum Culture - Preliminary Yeast A&P Assessment and plan (1) Acute respiratory failure with hypoxia: Status: Acute (2) COVID-19: Status: Acute (3) HTN (hypertension): Status: Acute (4) Hypothyroidism: Status: Acute (5) Acute respiratory distress syndrome (ARDS) due to 2019 novel coronavirus: Status: Acute (6) Anxiety: Status: Acute (7) Pulmonary embolism associated with COVID-19: Status: Acute (8) Goals of care, counseling/discussion: Status: Acute Plan #Acute hypoxic respiratory failure secondary to ARDS due to COVID-19 pneumonia #Pulmonary embolism #Possible PCP pneumonia #Hypertension #Hypothyroidism -Worsening hypoxia Secondary to COVID-19 pneumonia/PE/possible PCP pneumonia -Intubated, sedated with fentanyl, Versed, propofol , Paralyzed and prone for session -ABG 7.3 9/44/65/26/94%on CMV 420/14/60% - plan is Continue one more proning session tonight -Completed 5-day course of remdesivir, dexamethasone, 1 dose of Tocilizumab, and received baricitinib few doses Discontinued in view of discontinued in view of possible secondary infection - CTA 08/18/2021 was negative for pulmonary embolism but secondary to markedly elevated dimer on full dose anticoagulation with Lovenox later switched to Eliquis 5 mg twice daily--due to worsening FiO2 requirements CTA was repeated 08/28/2021 which showed multiple small pulmonary emboli in first order to segmental branches of right pulmonary artery and worsening bilateral pneumonia; -Eliquis switched to Heparin drip -As patient received steroids, Tocilizumab, baricitinib-suspicious for PCP pneumonia due to immunosuppression -Performed bronchoscopy post intubation and send BAL from left upper lobe for Gram stain and cultures, fungal cultures, PCP PCR-currently broadly covered with vancomycin, Primaxin, bactrum / steroids. MRSA nares negative. Continue antibiotic until final BAL cultures are available -P.o. prednisone 40 twice daily for 5 days (08/28/21-09/01/21); change to p.o. prednisone 40 mg once daily for 5 days starting 09/02/2021; tapered down to p.o. prednisone 20 mg daily starting 09/07/2021 for 11 days -Sputum 08/29/2021 growing yeast-identification pending - Echocardiogram demonstrated preserved EF, mild pulmonary hypertension -Currently on Lasix 40 mg daily-monitor input output/electrolytes/renal functions and try to keep net negative -DVT prophylaxis Lovenox -GI prophylaxis: PPI-senna docusate for BR -Start tube feeding at 30 cc while supine -Full code -Family updated And reported we will continue with proning session and if no improvement after second session-we will considering referring for ECMO Patient conveyed to hospitalist, RN, RT taking care of the patient Attestations Medical Necessity Statement*: Acute hypoxic respiratory failure secondary to ARDS due to COVID-19 pneumonia/pulmonary embolism/possible PCP pneumonia requiring mechanical ventilation and close monitoring in ICU Time Spent in Patient Care: Greater than 35 minutes (>than 50% of time spent in counselling and/or direct pt care on unit) . Critical Care Time: The high probability of a clinically significant, sudden or life threatening deterioration of the patient's [respiratory, infectious system(s) required my full and direct attention, intervention and personal management. The critical care time is as shown. This time is in addition to time spent performing any reported procedures but includes the following: [x] Data and vital sign review and interpretation [x] Patient assessment, examination and intervention [x] Documentation [x] Medication orders and management Critical Care Time (min): 45 Coding Level of Care Code Acute Wheel Of Fortune Dealer for [facility] Fwd Diagnoses Acute respiratory failure with hypoxia J96.01 COVID-19 U07.1 HTN (hypertension) I10 Hypothyroidism E03.9 Acute respiratory distress syndrome (ARDS) due to 2019 novel coronavirus U07.1; J80 Anxiety F41.9 Pulmonary embolism associated with COVID-19 U07.1; I26.99 Goals of care, counseling/discussion Z71.89 Time Spent (min) 45
[2021-08-30] MEDS: FUROsemide 10 mg/mL SDV 4mL 40 MG IVP (09:30)
[2021-08-30] MEDS: heparin drip 25,000 UNIT/500 ML PREMIX 26 UNIT IV (09:51)
[2021-08-30] MEDS: heparin 5,000 unit/mL INJ 1 mL IV ×2 (10:00→18:08)
[2021-08-30 10:16] LABS: Partial Thromboplastin Time 23.4 SECONDS (23.9-36.7)
--- NOTE | 2021-08-30 10:17 | PC.CHAP ---
Pastoral Care Encounter/Spiritual Assessment Type of Contact [] Declined chemical economist visit [] Patient/Family/Request visit [] Outpatient visit [] Follow-up visit [] Physician referral [] Code/Alert [x] Routine visit [] Staff referral [] Actively dying [] Patient sleeping [] Family support [] [] Out of room [] Palliative care [] [x] Receiving care in room [] Pre-surgical visit [] Trauma [] Long length of stay [x] ICU visit [x] Other: vent Relational/Emotional Strength [] Patient feels connected with others/family/visitors/staff [] Distress [] Loneliness/isolation [] Abandonment Spirituality of Patient [] Person of Heydi [] Attends Faith of their Heydi [] Believes in Prayer [] Reads Bible or Yarsanism materials [] There are Spiritual issues to be addressed Rotary Shear Cutter Interventions [x] Prayer [] Active listening [] Non-anxious presence [] Spiritual/emotional support [] Crisis/trauma care [] Spiritual counseling [] Bereavement support [] Provided bereavement packet [] Provided Bible/devotional materials [] Provided toy/stuffed animal, coloring book to patient or family member [] Provided Communion [] Anointing/[place] [] Salvation [x] Completed spiritual assessment [] Other: Impact on Illness or Injury [] Angry [] Fearful [] Anxious [] Often cries [] Exhaustion [] Unable to work [] Unable to attend roman catholic [] Unable to walk/stand [] Unable to read [] Unable to drive [] Unable to eat/drink [] Unable to sleep [] Unable to be with family [] Patient intubated [] Other: Summary Time spent with patient
--- NOTE | 2021-08-30 15:02 | PC.NURSE ---
Family called for update. Update given with all questions answered.
--- NOTE | 2021-08-30 16:21 | P.PN_ITS ---
Subjective Subjective: Interval history: Hospital course, labs appreciated. Patient is intubated. Ventilator settings appreciated. Patient was proned and supine around 12:00. Patient tolerated the procedure the procedure well. Has remained hemodynamically stable and afebrile. Currently on FiO2 60%, PEEP of 5, tidal volume of 420 saturating 89 to 9 2%. Medications: Reviewed: Yes Vitals/I&O/Wt Last Vital Signs Temp 98.4 F 08/30/21 08:00 Pulse 77 08/30/21 14:00 Resp 29 H 08/30/21 13:20 BP 121/65 08/30/21 13:31 Pulse Ox 89 L 08/30/21 13:31 08/30/21 08/30/21 08/30/21 06:59 14:59 22:59 Intake Total 943.383 / 3003.417 924.370 / 924.370 957.433 / 1881.803 Output Total 1550 / 2550 2600 / 2600 Balance -606.617 / 453.417 -1675.630 / -1675.630 957.433 / -718.197 Weight last 48 hrs Weight 93.157 kg Weight 103.476 kg Physical Exam Narrative: EXAM NARRATIVE: General: Intubated sedated, paralyzed HEENT: PERRLA, pupils bilaterally equal and reactive Chest: Bronchial type breath sounds bilaterally, coarse crackles present bilaterally all over the lung pereira equal good air entry bilaterally CVS: S1-S2 regular, no murmurs, no tachycardia, no gallops, no rubs Abdomen: Soft, nontender, no organomegaly, bowel sounds present Neuro: Intubated sedated Urinary Catheter Management: Gomez: Cath Placed During This Visit: yes Reason for Continuing Indwelling Catheter: Accurate Measurement of Urinary Output in Critically Ill Patients Urinary Catheter Date of Insertion: 08/29/21 Urinary Catheter Time of Insertion: 01:18 Data : 08/30/21 04:23 08/30/21 04:23 Micro: Microbiology 08/29/21 16:20 Gram Stain - Final Sputum - Endotracheal Tube Aspirate Sputum Culture - Preliminary 08/29/21 11:00 Gram Stain - Final Lung Left Lower Lobe Bronchoalveolar Lavage Culture - Preliminary 08/30/21 04:23 Blood Culture - Preliminary Blood SPECIMEN COLLECTED 08/30/21 04:23 Blood Culture - Preliminary Blood SPECIMEN COLLECTED 08/29/21 11:00 MRSA Culture - Final Nose 08/28/21 06:35 Gram Stain - Final Sputum - Expectorated Sputum Sputum Culture - Preliminary Yeast A&P Assessment and plan (1) Acute respiratory failure with hypoxia: Status: Acute (2) COVID-19: Status: Acute (3) HTN (hypertension): Goal blood pressure less than 140/90 mmHg. Continue home dose of losartan. Status: Acute (4) Hypothyroidism: Continue with home dose of levothyroxine. TSH appreciated. Status: Acute (5) Anxiety: Continue home dose of topiramate, trazodone. Status: Acute Plan ARDS: Secondary to COVID-19 pneumonia, most likely superimposed bacterial pneumonia, pulmonary embolism: Severe disease. Intubated 08/29. Undergoing proning sessions.. Post 1 proning session. Plan to prone later in the day again. Oxygen supplementation keeping saturation over 88%. Change ventilator settings accordingly. Has finished dexamethasone 6 mg IV daily course. Continue prednisone 40 mg twice daily for now. Finished remdesivir course. Post Actemra on 08/19. Dexamethasone 6 mg daily. Post 1 dose Actemra on 08/19. Vitamin C, zinc. Ipratropium, Xopenex every 4 hour, budesonide twice daily We will monitor inflammatory markers including CRP, D-dimer every 48 hours. D-dimer more than 20. Even on full dose Lovenox patient developed of embolism. Start on heparin drip. Will monitor for anemia or blood loss. High suspicion of bacterial pneumonia. For now broadly covered with vancomycin and imipenem and for possible PCP pneumonia with Bactrim. Sputum culture for now growing yeast. Bronchial lavage cultures from 08/29 pending. Add caspofungin. We will de-escalate antimicrobials depending on bronchial lavage cultures within the next few days. Urine Legionella, bacterial antigen, MRSA negative. Given hypoxia will try to keep patient as negative as possible. Echocardiogram shows an EF of 70% without any regional motion abnormality, normal diastolic dysfunction, RVSP of 45. Overall patient 4 L negative. IV Lasix 40 mg once. Replace electrolytes. Strict input output charting, daily weights. Start on tube feeds with Pulmocare at 10 cc/h, increase 10 cc every 4 hours with goal rate of 50. Stop tube feeds 1 hour prior to proning. Free water flushes 100 cc every 6 hours Full code. Heparin drip will help with DVT prophylaxis. Protonix for PUD prophylaxis. Patient's daughter Ms. Hoyt updated over the phone at [phone]. Care also discussed with patient's over the phone. All the questions were answered. Isolation to end on 21 days post positive test. 08/30 Attestations Medical Necessity Statement*: Requires further hospitalization for management of ARDS secondary COVID-19 pneumonia, superimposed bacterial pneumonia, pulmonary embolism while patient undergoes proning session Critical Care Time: The high probability of a clinically significant, sudden or life threatening deterioration of the patient's [pulmonary, cardiac, renal system(s) required my full and direct attention, intervention and personal management. The critical care time is as shown. This time is in addition to time spent performing any reported procedures but includes the following: [x] Data and vital sign review and interpretation [x] Patient assessment, examination and intervention [x] Documentation [x] Medication orders and management Critical Care Time (min): 60 Coding Level of Care Code Acute Communications Supervisor for [facility] F[facility] Diagnoses Acute respiratory failure with hypoxia J96.01 COVID-19 U07.1 HTN (hypertension) I10 Hypothyroidism E03.9 Anxiety F41.9
[2021-08-30] MEDS: artificial tears Op Oint 3.5 gm 1 APPLIC EYE-BOTH (16:27)
[2021-08-30 16:41] LABS: Partial Thromboplastin Time 46.8 SECONDS (23.9-36.7)
[2021-08-30] MEDS: propofol 1,000 MG/100 ML INJ 18.63 MG IV (17:43)
--- NOTE | 2021-08-30 18:24 | PC.NURSE ---
Patient proned at 1730. Tolerated well. Heparin drip started this morning. Tube feeding to begin tomorrow when supine. Fio2 increased to 65 previously 60. Vitals WNL
--- NOTE | 2021-08-30 18:31 | PC.NURSE ---
Updated patients daughter, Evelina
[2021-08-30] MEDS: cisatracurium 100 MG in sodium chloride 0.9% 50 ML 9.31 MG IV (20:42)
[2021-08-30 21:57] LABS: Partial Thromboplastin Time 69.6 SECONDS (23.9-36.7)
[2021-08-31] VITALS (63 sets, daily range): BP systolic 101–153; BP diastolic 54–95; PULSE 75–116; RESP 24–27; TEMP 36.6–37.4; O2SAT 88–99
[2021-08-31] MEDS: heparin drip 25,000 UNIT/500 ML PREMIX 28 UNIT IV (02:21)
[2021-08-31] MEDS: SULFAMETHOXAZOLE TRIMETH IV ×3 (02:21→19:35)
[2021-08-31] MEDS: DEXTROSE 5% IV ×3 (02:21→19:35)
[2021-08-31] MEDS: propofol 1,000 MG/100 ML INJ 31.04 MG IV ×6 (03:23→20:52)
[2021-08-31] MEDS: ipratropium 0.5 mg/2.5 mL Neb INHALATION ×5 (03:23→19:44)
[2021-08-31] MEDS: levalbuterol 0.63 mg/3 mL Neb INHALATION ×5 (03:23→19:44)
[2021-08-31 04:05] LABS: Basophils % 0.2 %; Hematocrit 34.6 % (37.0-47.0); Hemoglobin 11.1 g/dL (11.5-15.3); Lymphocytes # 1.4 10^3/uL (0.8-4.8); Lymphocytes % 6.2 %; Mean Corpuscular HGB Conc 32.1 g/dL (30.0-36.0); Mean Corpuscular Hemoglobin 29.9 pg (28.0-34.0); Mean Corpuscular Volume 93.3 fl (81-99); Mean Platelet Volume 9.8 fL (7.4-10.4); Monocytes # 1.4 10^3/uL (0.2-0.9); Monocytes % 6.4 %; Neutrophils # 18.45 10^3/uL (1.8-7.7); Neutrophils % 83.5 %; Nucleated Red Blood Cells % 0 %; Platelet Count 189 10^3/cmm (130-400); Red Blood Count 3.71 10^6/uL (4.1-5.3); Red Cell Distribution Width 14.3 % (12.1-15.1); White Blood Count 22.1 10^3/uL (4.0-10.0)
[2021-08-31] MEDS: vancomycin 1,250 MG/250 ML PIGGYBACK 250 MG IV ×2 (04:12→17:02)
[2021-08-31 04:23] LABS: Partial Thromboplastin Time 56.8 SECONDS (23.9-36.7)
[2021-08-31 04:25] LABS: D Dimer 2.81 ug/mIFEU (0-0.59)
[2021-08-31 04:26] LABS: C Reactive Protein 4.2 mg/L (0.0-4.9); Magnesium 2.3 mg/dL (1.7-2.3)
[2021-08-31 04:33] LABS: Alanine Aminotransferase 14 U/L (0-33); Albumin Level 3.3 g/dL (3.5-5.2); Alkaline Phosphatase 99 IU/L (35-105); Anion Gap 13.4 (5-19); Aspartate Amino Transferase 25 U/L (0-32); Blood Urea Nitrogen 14 mg/dL (6-20); Carbon Dioxide 24 mmol/L (22-29); Chloride 98 mmol/L (98-107); Globulin 2.1 g/dL (1.3-4.6); Glomerular Filtration Rate 102.3 mL/min (90-130); Glucose 212 mg/dL (65-115); Osmolality Calculated 279 mOsm/kg (285-295); Potassium 4.4 mmol/L (3.5-5.1); Sodium 131 mmol/L (136-145); Total Bilirubin 0.2 mg/dL (0.15-1.2); Total Protein 5.4 g/dL (6.6-8.7)
[2021-08-31 04:35] LABS: Vancomycin Trough 23.4 ug/mL (10-15)
[2021-08-31] MEDS: levoFLOXacin 750 mg Tablet PO (05:00)
--- NOTE | 2021-08-31 06:00 | XR_ITS ---
WS: [id number] XR chest 1V portable [id number] REASON FOR EXAM: covid FINDINGS: Endotracheal tube, nasogastric tube, and right internal jugular central venous line remain unchanged and properly positioned. No significant interval change in the diffuse pulmonary opacities seen on 08/29/2021. No new findings are identified. XR/XR chest 1V portable [id number] IMPRESSION: Stable abnormal chest.
[2021-08-31] MEDS: zinc gluconate 50 mg Tablet PO (07:56)
[2021-08-31] MEDS: ascorbic acid 500 mg Tablet PO (07:57)
[2021-08-31] MEDS: levothyroxine 25 mcg Tablet PO (07:57)
[2021-08-31] MEDS: predniSONE 20 mg Tablet 40 MG PO ×2 (07:57→17:03)
[2021-08-31] MEDS: ferrous gluconate 324 mg Tablet PO ×2 (07:57→17:03)
[2021-08-31] MEDS: aspirin 81 mg EC Tablet PO (07:57)
[2021-08-31] MEDS: pantoprazole DR 40 mg Tablet PO (07:57)
[2021-08-31] MEDS: montelukast sodium 10 mg Tablet PO (07:57)
[2021-08-31] MEDS: topiramate 100 mg Tablet PO (07:57)
[2021-08-31] MEDS: lanolin oint 7 gm 1 APPLIC TOPICAL (07:58)
[2021-08-31] MEDS: sennosides-docusate Tablet 1 TAB PO (07:59)
[2021-08-31] MEDS: budesonide 0.5 mg/2 mL Neb INHALATION ×2 (08:10→19:44)
[2021-08-31] MEDS: cisatracurium 100 MG in sodium chloride 0.9% 50 ML 9.31 MG IV (08:42)
[2021-08-31] MEDS: FUROsemide 10 mg/mL SDV 4mL 40 MG IVP (09:23)
[2021-08-31 09:43] LABS: Partial Thromboplastin Time 48.3 SECONDS (23.9-36.7)
--- NOTE | 2021-08-31 10:15 | PC.NURSE ---
Patient supine 0930.
--- NOTE | 2021-08-31 10:57 | PC.NURSE ---
Pulmocare started 10cc/hr at 1045.
--- NOTE | 2021-08-31 11:05 | PC.NUTR ---
TF consult received for Pulmocare. Recommend starting Pulmicare 1.5@ 10 mls/hr, increasing 10 mls Q8H as tolerated to goal rate of 25 mls/hr with flushes of 150 mls Q4H or per MD discretion. Currently PT receiving Propofol @ 31.04 mls/hr which provides 819 kcals - hence the low goal rate. Details in RD assessment.
[2021-08-31] MEDS: heparin 5,000 unit/mL INJ 1 mL IV (11:13)
[2021-08-31 12:49] LABS: ABG PCO2 46.9 mmHg (35-45); ABG PH Result 7.34 (7.35-7.45); Alveolar-Arterial Oxygen Gradi 43.4 mmHg (5-10); Arterial Blood Gas Hematocrit 34.1 % (37-47); Blood Gas Allen Test Pos; Blood Gas Operator Identificat CAK; Blood Gas Sample Site Radial, left; Blood Gas Sample Type Arterial; Blood Gas Tidal Volume 0.42; Carboxyhemoglobin 0.6 %THgb (0.4-20.1); HCO3 ABG 25.1 mmol/L (22-26); HGB O2 Sat 91.6 % (95-100); Ionized Calcium Level - ABG 1.2 mmol/L (1.1-1.4); Methemoglobin 1.7 % (0.4-1.5); Oxygen Device VENT; Oxygen Saturation ABG 93.8; PO2 ABG 72.7 mmHg (80.0-100.0); Potassium Level - ABG 3.9 mmol/L (3.5-5.0); Total Hemoglobin 11.1 g/dL (12-16)
--- NOTE | 2021-08-31 13:55 | PM.PN ---
Subjective Subjective: -Patient seen at bedside -Completed second proning sessions-immediately after his findings she desaturated to 80s and has to increase her FiO2 to 65% -Other labs and imaging reviewed Medications: Reviewed: Yes Vitals/I&O/Wt Last Vital Signs Temp 98.7 F 08/31/21 12:01 Pulse 81 08/31/21 12:01 Resp 27 H 08/31/21 13:08 BP 109/64 08/31/21 12:01 Pulse Ox 91 08/31/21 13:08 08/30/21 08/31/21 08/31/21 22:59 06:59 14:59 Intake Total 2498.249 / 3422.619 1386.533 / 4809.152 634.921 / 634.921 Output Total 750 / 3350 1850 / 5200 1000 / 1000 Balance 1748.249 / 72.619 -463.467 / -390.848 -365.079 / -365.079 Weight last 48 hrs Weight 178 lb 8 oz Weight 205 lb 6 oz Physical Exam Narrative: PHYSICAL EXAM: General: lying in bed, sedated, intubated-in prone positioning HEENT:NCAT, PERRLA, EOMI Neck: Supple Lungs: Clear to auscultation Heart: s1/s2, RRR Abd: soft, NT, ND, BS + Normoactive Extremities: No edema MATERIAL PROCESSOR: sedated and limited MATERIAL PROCESSOR exam possible. SKIN: no rash LDA: # CVC: Right IJ 08/30/2021 Urinary Catheter Management: Gomez: Cath Placed During This Visit: yes Reason for Continuing Indwelling Catheter: Accurate Measurement of Urinary Output in Critically Ill Patients Urinary Catheter Date of Insertion: 08/29/21 Urinary Catheter Time of Insertion: 01:18 Data : 08/31/21 03:32 08/31/21 03:32 Other Labs: Radiology Impressions Chest CTA 08/28/21 08:21 IMPRESSION: 1. Multiple small pulmonary emboli in 1st order through segmental branches of the right pulmonary artery. 2. Bilateral pneumonia, appears worsened when compared to the prior study. COMMENTS: Consistent with the [place]'s Incidental Findings Committee white paper (J Am Margie Radiol 2018): Any incidental renal lesion less than 1 cm or classified as too small to characterize, or any incidental cystic renal lesion characterized as simple-appearing, is likely benign. No follow-up imaging is recommended for these lesions per consensus recommendations based on imaging criteria. Chest X-Ray 08/31/21 06:00 IMPRESSION: Stable abnormal chest. Laboratory Results WBC 22.1 10^3/uL (4.0-10.0) H 08/31/21 03:32 RBC 3.71 10^6/uL (4.1-5.3) L 08/31/21 03:32 Hgb 11.1 g/dL (11.5-15.3) L 08/31/21 03:32 Hct 34.6 % (37.0-47.0) L 08/31/21 03:32 MCV 93.3 fl (81-99) 08/31/21 03:32 MCH 29.9 pg (28.0-34.0) 08/31/21 03:32 MCHC 32.1 g/dL (30.0-36.0) 08/31/21 03:32 RDW 14.3 % (12.1-15.1) 08/31/21 03:32 Plt Count 189 10^3/cmm (130-400) 08/31/21 03:32 MPV 9.8 fL (7.4-10.4) 08/31/21 03:32 Neut % (Auto) 83.5 % 08/31/21 03:32 Lymph % (Auto) 6.2 % 08/31/21 03:32 [place] % (Auto) 6.4 % 08/31/21 03:32 Eos % (Auto) 0.0 % 08/31/21 03:32 Baso % (Auto) 0.2 % 08/31/21 03:32 Neut # (Auto) 18.45 10^3/uL (1.8-7.7) H 08/31/21 03:32 Lymph # (Auto) 1.4 10^3/uL (0.8-4.8) 08/31/21 03:32 [place] # (Auto) 1.4 10^3/uL (0.2-0.9) H 08/31/21 03:32 Eos # (Auto) 0.0 10^3/uL (0.0-0.8) 08/31/21 03:32 Baso # (Auto) 0.0 10^3/uL (0.0-0.1) 08/31/21 03:32 Nucleated RBC % (auto) 0 % 08/31/21 03:32 Total Counted 100 (0-100) 08/25/21 05:04 Atypical Lymphs % 0.0 % (0-5) 08/25/21 05:04 Absolute Neutrophils 13.0 10^3/cmm (1.4-6.5) H 08/25/21 05:04 Segmented Neutrophils 58 % 08/25/21 05:04 Abs Segm Neuts (Man) 8.9 10/cmm (1.6-7.1) H 08/25/21 05:04 Band Neutrophils 27.0 % 08/25/21 05:04 Abs Band Neuts (Man) 4.1 10^3/cmm (0.0-1.2) H 08/25/21 05:04 Absolute Lymphocytes 2.0 10^3/cmm (1.2-3.4) 08/25/21 05:04 Lymphocytes (Manual) 13 % 08/25/21 05:04 Monocytes (Manual) 0.0 % 08/25/21 05:04 Absolute Monocytes 0.0 10^3/cmm (0.1-0.6) L 08/25/21 05:04 Eosinophils (Manual) 0 % 08/25/21 05:04 Absolute Eosinophils 0.0 10^3/cmm (0.0-0.7) 08/25/21 05:04 Basophils (Manual) 0.0 % 08/25/21 05:04 Absolute Basophils 0.0 10^3/cmm (0.0-0.2) 08/25/21 05:04 Myelocytes 2.0 % 08/25/21 05:04 Nucleated RBCs # 0.0 /100WBC 08/31/21 03:32 Differential Comment Cancelled 08/29/21 11:00 Platelet Estimate Normal (Normal) 08/25/21 05:04 APTT 48.3 SECONDS (23.9-36.7) H 08/31/21 09:18 D-Dimer 2.81 ug/mIFEU (0-0.59) H 08/31/21 03:32 Specimen Type Arterial 08/31/21 12:38 Sample Site Radial, left 08/31/21 12:38 ABG pH 7.34 (7.35-7.45) L 08/31/21 12:38 ABG pCO2 46.9 mmHg (35-45) H 08/31/21 12:38 ABG pO2 72.7 mmHg (80.0-100.0) L 08/31/21 12:38 ABG HCO3 25.1 mmol/L (22-26) 08/31/21 12:38 ABG O2 Saturation 93.8 08/31/21 12:38 ABG Base Excess -1.0 mmol/L (-2.0-2.0) 08/31/21 12:38 Suraj Test Pos 08/31/21 12:38 A-a O2 Gradient 43.4 mmHg (5-10) H 08/31/21 12:38 Hematocrit 34.1 % (37-47) L 08/31/21 12:38 Hgb O2 Saturation 91.6 % (95-100) L 08/31/21 12:38 Carboxyhemoglobin 0.6 %THgb (0.4-20.1) 08/31/21 12:38 Methemoglobin 1.7 % (0.4-1.5) H 08/31/21 12:38 Total Hemoglobin 11.1 g/dL (12-16) L 08/31/21 12:38 Sodium 133.0 mmol/L (131-143) 08/31/21 12:38 Potassium 3.9 mmol/L (3.5-5.0) 08/31/21 12:38 Glucose 251.0 mg/dL (70-115) H 08/31/21 12:38 Ionized Calcium 1.2 mmol/L (1.1-1.4) 08/31/21 12:38 O2 Delivery Device Vent 08/31/21 12:38 O2 Liters/Min 50.0 % 08/28/21 17:41 FiO2 65.0 % 08/31/21 12:38 Tidal Volume 0.42 08/31/21 12:38 PEEP 10.0 cmH20 08/31/21 12:38 Editor At Large ID Cak 08/31/21 12:38 Sodium 131 mmol/L (136-145) L 08/31/21 03:32 Potassium 4.4 mmol/L (3.5-5.1) 08/31/21 03:32 Chloride 98 mmol/L (98-107) 08/31/21 03:32 Carbon Dioxide 24 mmol/L (22-29) 08/31/21 03:32 Anion Gap 13.4 (5-19) 08/31/21 03:32 BUN 14 mg/dL (6-20) 08/31/21 03:32 Creatinine 0.6 mg/dL (0.5-0.9) 08/31/21 03:32 GFR Calculation 102.3 mL/min (90-130) 08/31/21 03:32 Glucose 212 mg/dL (65-115) H 08/31/21 03:32 POC Glucose 131 mg/dL (70-110) H 08/29/21 11:26 Calculated Osmolality 279 mOsm/kg (285-295) L 08/31/21 03:32 Lactic Acid 1.3 mmol/L (0.5-2.2) 08/18/21 06:49 Calcium 8.0 mg/dL (8.5-10.5) L 08/31/21 03:32 Phosphorus 2.7 mg/dL (2.5-4.5) 08/19/21 04:08 Magnesium 2.3 mg/dL (1.7-2.3) 08/31/21 03:32 Iron 12 ug/dL (37-145) L 08/18/21 05:41 TIBC 249 mcg/dl 08/18/21 05:41 % Saturation 4.8 % (20-50) L 08/18/21 05:41 Unsat Iron Binding 237 ug/dL (112-347) 08/18/21 05:41 Total Bilirubin 0.2 mg/dL (0.15-1.2) 08/31/21 03:32 AST 25 U/L (0-32) 08/31/21 03:32 ALT 14 U/L (0-33) 08/31/21 03:32 Alkaline Phosphatase 99 IU/L (35-105) 08/31/21 03:32 Lactate Dehydrogenase 1166 U/L (135-214) H 08/29/21 03:55 Creatine Kinase 256 U/L (26-192) H 08/30/21 04:23 Troponin T Gen 5 ng/L 31 ng/L (0-10) H 08/27/21 07:25 C-Reactive Protein 4.2 mg/L (0.0-4.9) 08/31/21 03:32 NT-Pro-B Natriuret Pep 226 pg/mL (0-125) H 08/18/21 05:41 NT-Pro-B Natriuret Pep 242 pg/mL (0-125) H 08/18/21 05:41 Total Protein 5.4 g/dL (6.6-8.7) L 08/31/21 03:32 Albumin 3.3 g/dL (3.5-5.2) L 08/31/21 03:32 Globulin 2.1 g/dL (1.3-4.6) 08/31/21 03:32 Triglycerides 174 mg/dL (0-150) H 08/30/21 04:23 Procalcitonin 0.05 ng/mL (0-0.5) 08/30/21 04:23 TSH 1.07 uIU/mL (0.27-4.20) 08/18/21 05:41 Urine Color Yellow (Yellow) 08/23/21 03:30 Urine Appearance Sl cloudy (CLEAR) A 08/23/21 03:30 Urine pH 6 (5-7) 08/23/21 03:30 Ur Specific [place] 1.010 (1.005-1.030) 08/23/21 03:30 Urine Protein 1+ (Negative) H 08/23/21 03:30 Urine Glucose (UA) Norm (Normal) 08/23/21 03:30 Urine Ketones 1+ (Negative) H 08/23/21 03:30 Urine Blood 3+ (Negative) H 08/23/21 03:30 Urine Nitrate Negative (Negative) 08/23/21 03:30 Urine Bilirubin Neg (Negative) 08/23/21 03:30 Urine Urobilinogen Norm mg/dL (Negative) 08/23/21 03:30 Ur Leukocyte Esterase 1+ (Negative) H 08/23/21 03:30 Urine RBC Too numerous to cnt /hpf (0-2) H 08/23/21 03:30 Urine WBC >100 /hpf (0-5) H 08/23/21 03:30 Ur Squamous Epith Cells 0-4 /hpf (0-5) H 08/23/21 03:30 Amorphous Sediment Not Reportable 08/23/21 03:30 Urine Bacteria 2+ /hpf (NONE) H 08/23/21 03:30 Fluid Color Cancelled 08/29/21 11:00 Fluid Appearance Cancelled 08/29/21 11:00 Fluid WBC Cancelled 08/29/21 11:00 Fluid RBC Cancelled 08/29/21 11:00 Fluid Tot Cell Count Cancelled 08/29/21 11:00 Fld Polynuclear WBCs # Cancelled 08/29/21 11:00 Fld Polynuclear WBCs % Cancelled 08/29/21 11:00 Fl Mononucl WBCs #(Auto) Cancelled 08/29/21 11:00 Fl Mononuclear % Auto Cancelled 08/29/21 11:00 Bronch Specimen Source L. lower lobe 08/29/21 11:00 Bronchial Fluid Color Colorless 08/29/21 11:00 Bronchial Fluid Appearance Hazy (CLEAR) 08/29/21 11:00 Bronchial Fluid WBC 400 /uL 08/29/21 11:00 Bronchial Fluid RBC 350 10^3/uL 08/29/21 11:00 Bronch Cells Counted 200 08/29/21 11:00 Bronchial Neutrophils 68.00 % (0.9-2.3) H 08/29/21 11:00 Bronchial Lymphocytes 11.00 % (10.71-12.91) 08/29/21 11:00 Bronchial Eosinophils 3.00 % (0.13-0.25) H 08/29/21 11:00 Bronchial Macrophages 18.00 % (83.6-86.8) L 08/29/21 11:00 Bronchial Diff Comment Yes 08/29/21 11:00 Vancomycin Trough 23.4 ug/mL (10-15) H 08/31/21 03:32 Micro: Microbiology 08/28/21 06:35 Gram Stain - Final Sputum - Expectorated Sputum Sputum Culture - Final Patrica albicans 08/29/21 16:20 Gram Stain - Final Sputum - Endotracheal Tube Aspirate Sputum Culture - Final 08/29/21 11:00 Gram Stain - Final Lung Left Lower Lobe Bronchoalveolar Lavage Culture - Final 08/30/21 04:23 Blood Culture - Preliminary Blood NEGATIVE TO DATE 08/30/21 04:23 Blood Culture - Preliminary Blood NEGATIVE TO DATE 08/29/21 11:00 Fungal Smear - Preliminary Sputum - Endotracheal Wash A&P Assessment and plan (1) Acute respiratory failure with hypoxia: Status: Acute (2) COVID-19: Status: Acute (3) HTN (hypertension): Status: Acute (4) Hypothyroidism: Status: Acute (5) Acute respiratory distress syndrome (ARDS) due to 2019 novel coronavirus: Status: Acute (6) Anxiety: Status: Acute (7) Pulmonary embolism associated with COVID-19: Status: Acute (8) Goals of care, counseling/discussion: Status: Acute Plan #Acute hypoxic respiratory failure secondary to ARDS due to COVID-19 pneumonia #Pulmonary embolism #Possible PCP pneumonia #Hypertension #Hypothyroidism -Worsening hypoxia Secondary to COVID-19 pneumonia/PE/possible PCP pneumonia -Intubated, sedated with fentanyl, Versed, propofol , Paralyzed and prone for session -ABG 7.3 446/72/25 on CMV 420/14/65% 0% -after 2 proning sessions -plan is to at least 2 more proning sessions -Taper off paralytic and Versed when she is supine -Patient's respiratory is 3-class II risk class-76% in-hospital survival- patient is 61-year-old with history of anxiety, hypertension, hypothyroidism and joint pains-she would benefit from ECMO-we will involve family and make referral to [facility] centers -Completed 5-day course of remdesivir, dexamethasone, 1 dose of Tocilizumab, and received baricitinib few doses Discontinued in view of discontinued in view of possible secondary infection - CTA 08/18/2021 was negative for pulmonary embolism but secondary to markedly elevated dimer on full dose anticoagulation with Lovenox later switched to Eliquis 5 mg twice daily--due to worsening FiO2 requirements CTA was repeated 08/28/2021 which showed multiple small pulmonary emboli in first order to segmental branches of right pulmonary artery and worsening bilateral pneumonia; -Eliquis switched to Heparin drip - -As patient received steroids, Tocilizumab, baricitinib-suspicious for PCP pneumonia due to immunosuppression -Performed bronchoscopy post intubation and BAL fluid was neutrophil predominant, send BAL from left upper lobe for Gram stain and cultures, fungal cultures, PCP PCR-currently broadly covered with vancomycin, Primaxin, Bactrim/ steroids. MRSA nares negative. Continue antibiotic until final BAL cultures are available -P.o. prednisone 40 twice daily for 5 days (08/28/21-09/01/21); change to p.o. prednisone 40 mg once daily for 5 days starting 09/02/2021; tapered down to p.o. prednisone 20 mg daily starting 09/07/2021 for 11 days -Sputum 08/29/2021 growing yeast-Patrica albicans-most likely commensal - Echocardiogram demonstrated preserved EF, mild pulmonary hypertension -Currently on Lasix 40 mg daily-monitor input output/electrolytes/renal functions and try to keep net negative -DVT prophylaxis heparin drip -GI prophylaxis: PPI-senna docusate for BR -Start tube feeding at 30 cc while supine -Full code -Family updated And reported we will continue with proning session-if patient does not improve in the next 24 to 48 hours will refer to ECMO Patient conveyed to hospitalist, RN, RT taking care of the patient Attestations Medical Necessity Statement*: Requires further hospitalization for management of ARDS secondary COVID-19 pneumonia, superimposed bacterial pneumonia, pulmonary embolism while patient undergoes proning session Critical Care Time: The high probability of a clinically significant, sudden or life threatening deterioration of the patient's [pulmonary, cardiac, renal system(s) required my full and direct attention, intervention and personal management. The critical care time is as shown. This time is in addition to time spent performing any reported procedures but includes the following: [x] Data and vital sign review and interpretation [x] Patient assessment, examination and intervention [x] Documentation [x] Medication orders and management Critical Care Time (min): 60 Coding Level of Care Code Established Pt Acute Business Liaison Officer for Chg Fwd Patient Type Established History Comprehensive Exam Comprehensive Medical Decision Making High Complexity Diagnoses Acute respiratory failure with hypoxia J96.01 COVID-19 U07.1 HTN (hypertension) I10 Hypothyroidism E03.9 Acute respiratory distress syndrome (ARDS) due to 2019 novel coronavirus U07.1; J80 Anxiety F41.9 Pulmonary embolism associated with COVID-19 U07.1; I26.99 Goals of care, counseling/discussion Z71.89 Time Spent (min) 60
--- NOTE | 2021-08-31 15:55 | P.PN_ITS ---
Subjective Subjective: Seen multiple times during the day. Today morning on first examination patient was proned on 50% FiO2 saturating 92%. No acute events overnight. Urine output appropriate. When seen again patient was supine. Post supination patient's FiO2 requirements went up to 80% and were later trended down to 65% during the day. Patient has remained hemodynamically stable. Urine output appropriate. Current ventilator settings tidal volume of 420, PEEP of 10 with FiO2 of 65%. Vitals/I&O/Wt Last Vital Signs Temp 98.7 F 08/31/21 12:01 Pulse 80 08/31/21 15:14 Resp 26 H 08/31/21 15:12 BP 109/64 08/31/21 12:01 Pulse Ox 92 08/31/21 15:12 08/31/21 08/31/21 08/31/21 06:59 14:59 22:59 Intake Total 1386.533 / 4809.152 1569.279 / 1569.279 1.95 / 1571.229 Output Total 1850 / 5200 2200 / 2200 Balance -463.467 / -390.848 -630.721 / -630.721 1.95 / -628.771 Weight last 48 hrs Weight 80.966 kg Weight 93.157 kg Physical Exam Narrative: General: Intubated sedated, paralyzed HEENT: PERRLA, pupils bilaterally equal and reactive Chest: Bronchial type breath sounds bilaterally, coarse crackles present bilaterally all over the lung pereira equal good air entry bilaterally CVS: S1-S2 regular, no murmurs, no tachycardia, no gallops, no rubs Abdomen: Soft, nontender, no organomegaly, bowel sounds present Neuro: Intubated sedated Urinary Catheter Management: Gomez: Cath Placed During This Visit: yes Reason for Continuing Indwelling Catheter: Accurate Measurement of Urinary Output in Critically Ill Patients Urinary Catheter Date of Insertion: 08/29/21 Urinary Catheter Time of Insertion: 01:18 Data : 08/31/21 03:32 08/31/21 03:32 Micro: Microbiology 08/28/21 06:35 Gram Stain - Final Sputum - Expectorated Sputum Sputum Culture - Final Patrica albicans 08/29/21 16:20 Gram Stain - Final Sputum - Endotracheal Tube Aspirate Sputum Culture - Final 08/29/21 11:00 Gram Stain - Final Lung Left Lower Lobe Bronchoalveolar Lavage Culture - Final 08/30/21 04:23 Blood Culture - Preliminary Blood NEGATIVE TO DATE 08/30/21 04:23 Blood Culture - Preliminary Blood NEGATIVE TO DATE 08/29/21 11:00 Fungal Smear - Preliminary Sputum - Endotracheal Wash A&P Assessment and plan (1) Acute respiratory failure with hypoxia: Status: Acute (2) COVID-19: Status: Acute (3) HTN (hypertension): Goal blood pressure less than 140/90 mmHg. Continue home dose of losartan. Status: Acute (4) Hypothyroidism: Continue with home dose of levothyroxine. TSH appreciated. Status: Acute (5) Anxiety: Continue home dose of topiramate, trazodone. Status: Acute Plan ARDS: Secondary to COVID-19 pneumonia, most likely superimposed bacterial pneumonia, pulmonary embolism: Severe disease. Intubated 08/29. Undergoing proning sessions.. Post 2 proning session. Plan to prone later in the day again. Oxygen supplementation keeping saturation over 88%. Change ventilator settings accordingly. Has finished dexamethasone 6 mg IV daily course. Continue prednisone 40 mg twice daily for now. Finished remdesivir course. Post Actemra on 08/19. Dexamethasone 6 mg daily. Post 1 dose Actemra on 08/19. Vitamin C, zinc. Ipratropium, Xopenex every 4 hour, budesonide twice daily We will monitor inflammatory markers including CRP, D-dimer every 48 hours. D-dimer has trended down. Currently 2. CTA consistent with pulmonary embolism. Continue with heparin drip for now. We will gradually transition over to full dose Lovenox if D-dimer continue to trend down. High suspicion of bacterial pneumonia. For now broadly covered with vancomycin,imipenem, Levaquin for atypical coverage for 5 days and for possible PCP pneumonia with Bactrim. Sputum culture growing Patrica albicans. Bronchial lavage so far no growth. Stop caspofungin. Switch to fluconazole. Will do 7-day course overall. Day 3/7 of appropriate antifungals. Urine Legionella, bacterial antigen, MRSA negative. Given hypoxia will try to keep patient as negative as possible. Echocardiogram shows an EF of 70% without any regional motion abnormality, normal diastolic dysfunction, RVSP of 45. Overall patient 4 L negative. IV Lasix 40 mg once. Replace electrolytes. Strict input output charting, daily weights. Start on tube feeds with Pulmocare at 10 cc/h, increase 10 cc every 4 hours with goal rate of 50. Stop tube feeds 1 hour prior to proning. Free water flushes 100 cc every 6 hours Full code. Heparin drip will help with DVT prophylaxis. Protonix for PUD prophylaxis. Appreciate software architect recommendation. Patient's daughter Ms. Hoyt updated over the phone at [phone]. Care also discussed with patient's over the phone. All the questions were answered. Isolation to end on 21 days post positive test. 08/30 Patient's care did discuss in detail with software architect Dr. Moon at [facility]. He states currently they do not have any ECMO circuits available in their hospital and patient still has room to go up on FiO2 and PEEP if needed. He suggests few more proning sessions. He suggests if patient does not improve after a few more proning session to call back to see if they have any bed available. Attestations Medical Necessity Statement*: Requires further hospitalization for management of ARDS secondary COVID-19 pneumonia, pulmonary embolism, superimposed bacterial pneumonia while patient is undergoing proning sessions Critical Care Time: The high probability of a clinically significant, sudden or life threatening deterioration of the patient's [pulmonary system(s) required my full and direct attention, intervention and personal management. The critical care time is as shown. This time is in addition to time spent performing any reported procedures but includes the following: [x] Data and vital sign review and interpretation [x] Patient assessment, examination and intervention [x] Documentation [x] Medication orders and management Critical Care Time (min): 70 Coding Level of Care Code Acute Haul Truck Driver for g Fwd Exam Comprehensive Medical Decision Making High Complexity Diagnoses Acute respiratory failure with hypoxia J96.01 COVID-19 U07.1 HTN (hypertension) I10 Hypothyroidism E03.9 Anxiety F41.9
--- NOTE | 2021-08-31 16:39 | PC.NURSE ---
Dr. Whitman ordered to infuse Caspofungin dose made by pharmacy now. Start first dose of Fluconazole tomorrow.
[2021-08-31 16:51] LABS: Partial Thromboplastin Time 62.1 SECONDS (23.9-36.7)
--- NOTE | 2021-08-31 17:55 | PC.SOCIAL ---
IM not provided since patient is still very ill and will not be discharging in the near future
--- NOTE | 2021-08-31 17:58 | PC.NURSE ---
Patient proned 1730.
[2021-08-31] MEDS: heparin drip 25,000 UNIT/500 ML PREMIX 30 UNIT IV (20:53)
[2021-08-31 21:12] LABS: ABG PCO2 45.9 mmHg (35-45); ABG PH Result 7.34 (7.35-7.45); Alveolar-Arterial Oxygen Gradi 54.7 mmHg (5-10); Base Excess ABG -1.5 mmol/L (-2.0-2.0); Blood Gas Allen Test Pos; Blood Gas Operator Identificat JB; Blood Gas Sample Site Brachial, right; Blood Gas Sample Type Arterial; Carboxyhemoglobin 0.5 %THgb (0.4-20.1); HCO3 ABG 24.5 mmol/L (22-26); HGB O2 Sat 94.5 % (95-100); Ionized Calcium Level - ABG 1.2 mmol/L (1.1-1.4); Methemoglobin 1.7 % (0.4-1.5); Oxygen Device VENT; Oxygen Saturation ABG 96.6; PO2 ABG 91.3 mmHg (80.0-100.0); Potassium Level - ABG 4.4 mmol/L (3.5-5.0); Total Hemoglobin 11.4 g/dL (12-16)
[2021-08-31 21:54] LABS: Partial Thromboplastin Time 64.7 SECONDS (23.9-36.7)
[2021-08-31] MEDS: cisatracurium 100 MG in sodium chloride 0.9% 50 ML 12.42 MG IV (22:55)
[2021-09-01] VITALS (73 sets, daily range): BP systolic 78–130; BP diastolic 47–90; PULSE 70–110; RESP 26; TEMP 36.6–37.6; O2SAT 87–97
[2021-09-01] MEDS: ipratropium 0.5 mg/2.5 mL Neb INHALATION ×7 (00:37→23:08)
[2021-09-01] MEDS: levalbuterol 0.63 mg/3 mL Neb INHALATION ×7 (00:37→23:08)
[2021-09-01] MEDS: propofol 1,000 MG/100 ML INJ 31.04 MG IV ×6 (01:10→20:15)
[2021-09-01] MEDS: DEXTROSE 5% IV (02:18)
[2021-09-01] MEDS: SULFAMETHOXAZOLE TRIMETH IV (02:18)
--- NOTE | 2021-09-01 03:51 | PC.NURSE ---
No acute changes overnight.
[2021-09-01 03:54] LABS: Hemoglobin 10.6 g/dL (11.5-15.3); Mean Corpuscular HGB Conc 32.1 g/dL (30.0-36.0); Mean Corpuscular Hemoglobin 29.8 pg (28.0-34.0); Mean Corpuscular Volume 92.7 fl (81-99); Mean Platelet Volume 10.1 fL (7.4-10.4); Platelet Count 201 10^3/cmm (130-400); Red Blood Count 3.56 10^6/uL (4.1-5.3); Red Cell Distribution Width 14.4 % (12.1-15.1)
[2021-09-01 04:00] LABS: Partial Thromboplastin Time 60.7 SECONDS (23.9-36.7)
[2021-09-01 04:16] LABS: Magnesium 2.2 mg/dL (1.7-2.3)
[2021-09-01] MEDS: vancomycin 1,250 MG/250 ML PIGGYBACK 250 MG IV (04:19)
[2021-09-01 04:33] LABS: P. Jirovecii DNA QL PCR NOT DETECTED; Pneumocystis Jirovecii DNA PCR NO DNA DETECTED copies/mL
[2021-09-01 04:51] LABS: ABG PCO2 41.3 mmHg (35-45); ABG PH Result 7.41 (7.35-7.45); Arterial Blood Gas Hematocrit 46.1 % (37-47); Base Excess ABG 1.4 mmol/L (-2.0-2.0); Blood Gas Allen Test Pos; Blood Gas Operator Identificat JB; Blood Gas Sample Site Radial, right; Blood Gas Sample Type Arterial; HCO3 ABG 26.3 mmol/L (22-26); Oxygen Device VENT; PO2 ABG 97.3 mmHg (80.0-100.0)
[2021-09-01] MEDS: levoFLOXacin 750 mg Tablet PO (05:00)
[2021-09-01 05:01] LABS: Absolute Neutrophil 19.4 10^3/cmm (1.4-6.5); Absolute Segmented Neutrophil 18.5 10/cmm (1.6-7.1); Eosinophils 0 %; Lymphocytes 9 %; Lymphocytes Absolute 2.4 10^3/cmm (1.2-3.4); Monocytes Absolute 1.4 10^3/cmm (0.1-0.6); Platelet Estimate Normal (Normal); Segmented Neutrophils 77 %; Slide Review Slide Review Perform; Total Cells Counted 100 (0-100)
[2021-09-01 05:04] LABS: Alanine Aminotransferase 19 U/L (0-33); Albumin Level 3.3 g/dL (3.5-5.2); Alkaline Phosphatase 84 IU/L (35-105); Aspartate Amino Transferase 33 U/L (0-32); Blood Urea Nitrogen 14 mg/dL (6-20); Calcium 8.4 mg/dL (8.5-10.5); Carbon Dioxide 20 mmol/L (22-29); Chloride 98 mmol/L (98-107); Globulin 1.8 g/dL (1.3-4.6); Glomerular Filtration Rate 102.3 mL/min (90-130); Glucose 153 mg/dL (65-115); Osmolality Calculated 274 mOsm/kg (285-295); Sodium 130 mmol/L (136-145); Total Bilirubin 0.2 mg/dL (0.15-1.2); Total Protein 5.1 g/dL (6.6-8.7)
[2021-09-01 05:05] LABS: Anion Gap 16.8 (5-19); Potassium 4.8 mmol/L (3.5-5.1)
--- NOTE | 2021-09-01 06:00 | XR_ITS ---
WS: [id number] XR chest 1V portable [id number] REASON FOR EXAM: covid FINDINGS: Right changes which jugular central venous line and endotracheal tube remain in proper position. Nasogastric tube is beyond the fundus. The tip is not visualized on this examination. Decreasing confluence and density of the bilateral pulmonary opacities compared to the 2 previous day s. No new abnormality. XR/XR chest 1V portable [id number] IMPRESSION: Improving pulmonary opacities.
[2021-09-01] MEDS: cisatracurium 100 MG in sodium chloride 0.9% 50 ML 12.42 MG IV (07:12)
[2021-09-01] MEDS: budesonide 0.5 mg/2 mL Neb INHALATION ×2 (07:44→20:01)
--- NOTE | 2021-09-01 08:00 | PC.NURSE ---
Pt intubated, sedated and proned. Nimbex, versed, fentanyl, and propofol running per SEP.
[2021-09-01] MEDS: magnesium hydroxide 30 mL UDC PO (08:49)
[2021-09-01] MEDS: sennosides-docusate Tablet 1 TAB PO (08:49)
[2021-09-01] MEDS: bisacodyl 5 mg Tablet 10 MG PO (08:49)
[2021-09-01] MEDS: ferrous gluconate 324 mg Tablet PO ×2 (08:49→17:16)
[2021-09-01] MEDS: FUROsemide 10 mg/mL SDV 2mL 20 MG IVP (08:49)
[2021-09-01] MEDS: aspirin 81 mg EC Tablet PO (08:49)
[2021-09-01] MEDS: topiramate 100 mg Tablet PO (08:50)
[2021-09-01] MEDS: pantoprazole DR 40 mg Tablet PO (08:50)
[2021-09-01] MEDS: zinc gluconate 50 mg Tablet PO (08:50)
[2021-09-01] MEDS: levothyroxine 25 mcg Tablet PO (08:50)
[2021-09-01] MEDS: ascorbic acid 500 mg Tablet PO (08:50)
[2021-09-01] MEDS: predniSONE 20 mg Tablet 40 MG PO (08:50)
[2021-09-01] MEDS: montelukast sodium 10 mg Tablet PO (08:50)
--- NOTE | 2021-09-01 09:55 | PC.CHAP ---
Pastoral Care Encounter/Spiritual Assessment Type of Contact [] Declined amalgamator visit [] Patient/Family/Request visit [] Outpatient visit [] Follow-up visit [] Physician referral [] Code/Alert [x] Routine visit [] Staff referral [] Actively dying [] Patient sleeping [] Family support [] [] Out of room [] Palliative care [] [x] Receiving care in room [] Pre-surgical visit [] Trauma [] Long length of stay [x] ICU visit [x] Other: tummy... Relational/Emotional Strength [] Patient feels connected with others/family/visitors/staff [] Distress [] Loneliness/isolation [] Abandonment Spirituality of Patient [] Person of Heydi [] Attends Islam of their Heydi [] Believes in Prayer [] Reads Bible or Shinto materials [] There are Spiritual issues to be addressed [employer] Gatherer Interventions [x] Prayer [] Active listening [] Non-anxious presence [] Spiritual/emotional support [] Crisis/trauma care [] Spiritual counseling [] Bereavement support [] Provided bereavement packet [] Provided Bible/devotional materials [] Provided toy/stuffed animal, coloring book to patient or family member [] Provided Communion [] Anointing/[place] [] Salvation [x] Completed spiritual assessment [] Other: Impact on Illness or Injury [] Angry [] Fearful [] Anxious [] Often cries [] Exhaustion [] Unable to work [] Unable to attend oriental orthodox [] Unable to walk/stand [] Unable to read [] Unable to drive [] Unable to eat/drink [] Unable to sleep [] Unable to be with family [] Patient intubated [] Other: Summary Time spent with patient
[2021-09-01 10:31] LABS: Partial Thromboplastin Time 71.6 SECONDS (23.9-36.7)
--- NOTE | 2021-09-01 11:00 | PC.NURSE ---
Placed in supine position at 1050 this AM.
--- NOTE | 2021-09-01 12:58 | P.PN_ITS ---
Subjective Subjective: No acute events overnight. Seen multiple times for the day. Early in the morning patient was proned on 50% FiO2. Supined at around noon. Her saturations maintained stable today at FiO2 50% during supination. Hemodynamically has remained stable and afebrile. Urine output stable. Medications: Reviewed: Yes Vitals/I&O/Wt Last Vital Signs Temp 97.9 F 09/01/21 07:01 Pulse 86 09/01/21 11:08 Resp 26 H 09/01/21 11:08 BP 124/80 09/01/21 09:01 Pulse Ox 91 09/01/21 11:08 08/31/21 09/01/21 09/01/21 22:59 06:59 14:59 Intake Total 1753.199 / 3322.478 1324.133 / 4646.611 200 / 200 Output Total 850 / 3050 1750 / 4800 Balance 903.199 / 272.478 -425.867 / -153.389 200 / 200 Weight last 48 hrs Weight 80.966 kg Physical Exam Narrative: General: Intubated sedated, paralyzed HEENT: PERRLA, pupils bilaterally equal and reactive Chest: Bronchial type breath sounds bilaterally, coarse crackles present bilaterally all over the lung pereira equal good air entry bilaterally CVS: S1-S2 regular, no murmurs, no tachycardia, no gallops, no rubs Abdomen: Soft, nontender, no organomegaly, bowel sounds present Neuro: Intubated sedated Urinary Catheter Management: Gomez: Cath Placed During This Visit: yes Reason for Continuing Indwelling Catheter: Accurate Measurement of Urinary Output in Critically Ill Patients Urinary Catheter Date of Insertion: 08/29/21 Urinary Catheter Time of Insertion: 01:18 Data : 09/01/21 03:07 09/01/21 03:07 Micro: Microbiology 08/28/21 06:35 Gram Stain - Final Sputum - Expectorated Sputum Sputum Culture - Final Patrica albicans 08/29/21 16:20 Gram Stain - Final Sputum - Endotracheal Tube Aspirate Sputum Culture - Final 08/29/21 11:00 Gram Stain - Final Lung Left Lower Lobe Bronchoalveolar Lavage Culture - Final A&P Assessment and plan (1) Acute respiratory failure with hypoxia: Status: Acute (2) COVID-19: Status: Acute (3) HTN (hypertension): Goal blood pressure less than 140/90 mmHg. Continue home dose of losartan. Status: Acute (4) Hypothyroidism: Continue with home dose of levothyroxine. TSH appreciated. Status: Acute (5) Anxiety: Continue home dose of topiramate, trazodone. Status: Acute Plan ARDS: Secondary to COVID-19 pneumonia, most likely superimposed bacterial pneumonia, pulmonary embolism: Severe disease. Intubated 08/29. Undergoing proning sessions.. Post 3 proning session. Plan to prone later in the day again. Oxygen supplementation keeping saturation over 88%. Change ventilator settings accordingly. Has finished dexamethasone 6 mg IV daily course. Continue prednisone 40 mg twice daily for now. Finished remdesivir course. Post Actemra on 08/19. Dexamethasone 6 mg daily. Post 1 dose Actemra on 08/19. Vitamin C, zinc. Ipratropium, Xopenex every 4 hour, budesonide twice daily We will monitor inflammatory markers including CRP, D-dimer every 48 hours. D-dimer has trended down. Currently 2. CTA consistent with pulmonary embolism. Continue with heparin drip for now. We will gradually transition over to full dose Lovenox if D-dimer continue to trend down. High suspicion of bacterial pneumonia. For now continue with imipenem and Levaquin.. MRSA negative, PCP negative. Continue with fluconazole for overall 7-day course of appropriate antifungals for Patrica albicans in bronchial lavage specimen.. Urine Legionella, bacterial antigen, MRSA negative. Given hypoxia will try to keep patient as negative as possible. Echocardiogram shows an EF of 70% without any regional motion abnormality, normal diastolic dysfunction, RVSP of 45. Overall patient 4 L negative. IV Lasix 20 mg once. Replace electrolytes. Strict input output charting, daily weights. Start on tube feeds with Pulmocare at 10 cc/h, increase 10 cc every 4 hours with goal rate of 50. Stop tube feeds 1 hour prior to proning. Free water flushes 100 cc every 6 hours Full code. Heparin drip will help with DVT prophylaxis. Protonix for PUD prophylaxis. Appreciate founder president and ceo recommendation. Patient's daughter Ms. Hoyt updated over the phone at [phone]. Care also discussed with patient's over the phone. All the questions were answered. Isolation to end on 21 days post positive test. 08/30 Patient's care did discuss in detail with founder president and ceo Dr. Moon at [facility]. He states currently they do not have any ECMO circuits available in their hospital and patient still has room to go up on FiO2 and PEEP if needed. He suggests few more proning sessions. He suggests if patient does not improve after a few more proning session to call back to see if they have any bed available. Plan for day: Plan for repeat proning for fourth session. Stop vancomycin and Bactrim. Continue with imipenem, Levaquin and fluconazole. IV 20 mg Lasix. Monitor input and output. Restart on tube feeds once proned. Repeat D-dimer tomorrow. If remains low or trending down we will switch from heparin drip to full dose Lovenox. Attestations Medical Necessity Statement*: Requires further hospitalization for management of ARDS secondary to COVID-19 pneumonia, superimposed bacterial pneumonia along with pulmonary embolism as patient is undergoing proning sessions Critical Care Time: The high probability of a clinically significant, sudden or life threatening deterioration of the patient's [pulmonary, renal, neurological system(s) required my full and direct attention, intervention and personal management. The critical care time is as shown. This time is in ad dition to time spent performing any reported procedures but includes the following: [x] Data and vital sign review and interpretation [x] Patient assessment, examination and intervention [x] Documentation [x] Medication orders and management Critical Care Time (min): 90 Coding Level of Care Code Acute Probation Counselor for Tony Fwd Diagnoses Acute respiratory failure with hypoxia J96.01 COVID-19 U07.1 HTN (hypertension) I10 Hypothyroidism E03.9 Anxiety F41.9
[2021-09-01] MEDS: heparin drip 25,000 UNIT/500 ML PREMIX 30 UNIT IV (14:34)
[2021-09-01] MEDS: dexmedeTOMIDine 0.9 % NaCL 400 MCG/100 ML PREMIX IV (15:34)
--- NOTE | 2021-09-01 15:35 | P.PN_ITS ---
Subjective Subjective: -Patient seen at bedside today -Completed 3 proning sessions and FiO2 down to 50% -Despite being on fentanyl 150, Versed 6 mg, propofol 50-patient started hyperventilating after tapering down paralytic and saturating 84 to 85% on 50% FiO2 -Chest x-ray shows improving pulmonary opacities -We will prone her 4th session today -PCP [id number] Bactrim MRSA nares negative-discontinue vancomycin -Also will taper down prednisone 40 mg twice daily to 40 mg daily -Other labs and imaging reviewed Medications: Reviewed: Yes Vitals/I&O/Wt Last Vital Signs Temp 97.9 F 09/01/21 07:01 Pulse 90 09/01/21 13:30 Resp 26 H 09/01/21 11:08 BP 99/61 09/01/21 13:30 Pulse Ox 88 L 09/01/21 13:30 09/01/21 09/01/21 09/01/21 06:59 14:59 22:59 Intake Total 1324.133 / 4646.611 1065.518 / 1065.518 Output Total 1750 / 4800 Balance -425.867 / -722.049 0040.518 / 1065.518 Weight last 48 hrs Weight 178 lb 8 oz Physical Exam Narrative: PHYSICAL EXAM: General: lying in bed, sedated, intubated- HEENT:NCAT, PERRLA, EOMI Neck: Supple Lungs: Clear to auscultation Heart: s1/s2, RRR Abd: soft, NT, ND, BS + Normoactive Extremities: No edema AUDITING CLERK: sedated and limited AUDITING CLERK exam possible. SKIN: no rash LDA: # CVC: Right IJ 08/30/2021 Urinary Catheter Management: Gomez: Cath Placed During This Visit: yes Reason for Continuing Indwelling Catheter: Accurate Measurement of Urinary Output in Critically Ill Patients Urinary Catheter Date of Insertion: 08/29/21 Urinary Catheter Time of Insertion: 01:18 Data : 09/01/21 03:07 09/01/21 03:07 Other Labs: Radiology Impressions Chest CTA 08/28/21 08:21 IMPRESSION: 1. Multiple small pulmonary emboli in 1st order through segmental branches of the right pulmonary artery. 2. Bilateral pneumonia, appears worsened when compared to the prior study. COMMENTS: Consistent with the [employer]'s Incidental Findings Committee white paper (J Am Margie Radiol 2018): Any incidental renal lesion less than 1 cm or classified as too small to characterize, or any incidental cystic renal lesion characterized as simple-appearing, is likely benign. No follow-up imaging is recommended for these lesions per consensus recommendations based on imaging criteria. Chest X-Ray 09/01/21 06:00 IMPRESSION: Improving pulmonary opacities. Laboratory Results WBC 24.0 10^3/uL (4.0-10.0) H 09/01/21 03:07 RBC 3.56 10^6/uL (4.1-5.3) L 09/01/21 03:07 Hgb 10.6 g/dL (11.5-15.3) L 09/01/21 03:07 Hct 33.0 % (37.0-47.0) L 09/01/21 03:07 MCV 92.7 fl (81-99) 09/01/21 03:07 MCH 29.8 pg (28.0-34.0) 09/01/21 03:07 MCHC 32.1 g/dL (30.0-36.0) 09/01/21 03:07 RDW 14.4 % (12.1-15.1) 09/01/21 03:07 Plt Count 201 10^3/cmm (130-400) 09/01/21 03:07 MPV 10.1 fL (7.4-10.4) 09/01/21 03:07 Neut % (Auto) 83.5 % 08/31/21 03:32 Lymph % (Auto) Not Reportable 09/01/21 03:07 [place] % (Auto) Not Reportable 09/01/21 03:07 Eos % (Auto) 0.0 % 08/31/21 03:32 Baso % (Auto) 0.2 % 08/31/21 03:32 Neut # (Auto) 18.45 10^3/uL (1.8-7.7) H 08/31/21 03:32 Lymph # (Auto) Not Reportable 09/01/21 03:07 [place] # (Auto) Not Reportable 09/01/21 03:07 Eos # (Auto) 0.0 10^3/uL (0.0-0.8) 08/31/21 03:32 Baso # (Auto) 0.0 10^3/uL (0.0-0.1) 08/31/21 03:32 Nucleated RBC % (auto) 0 % 08/31/21 03:32 Total Counted 100 (0-100) 09/01/21 03:07 Atypical Lymphs % 1.0 % (0-5) 09/01/21 03:07 Absolute Neutrophils 19.4 10^3/cmm (1.4-6.5) H 09/01/21 03:07 Segmented Neutrophils 77 % 09/01/21 03:07 Abs Segm Neuts (Man) 18.5 10/cmm (1.6-7.1) H 09/01/21 03:07 Band Neutrophils 4.0 % 09/01/21 03:07 Abs Band Neuts (Man) 1.0 10^3/cmm (0.0-1.2) 09/01/21 03:07 Absolute Lymphocytes 2.4 10^3/cmm (1.2-3.4) 09/01/21 03:07 Lymphocytes (Manual) 9 % 09/01/21 03:07 Monocytes (Manual) 6.0 % 09/01/21 03:07 Absolute Monocytes 1.4 10^3/cmm (0.1-0.6) H 09/01/21 03:07 Eosinophils (Manual) 0 % 09/01/21 03:07 Absolute Eosinophils 0.0 10^3/cmm (0.0-0.7) 09/01/21 03:07 Basophils (Manual) 0.0 % 09/01/21 03:07 Absolute Basophils 0.0 10^3/cmm (0.0-0.2) 09/01/21 03:07 Metamyelocytes 2.0 % 09/01/21 03:07 Myelocytes 1.0 % 09/01/21 03:07 Nucleated RBCs # 0.0 /100WBC 08/31/21 03:32 Differential Comment Cancelled 08/29/21 11:00 Platelet Estimate Normal (Normal) 09/01/21 03:07 APTT 71.6 SECONDS (23.9-36.7) H 09/01/21 10:04 D-Dimer 2.81 ug/mIFEU (0-0.59) H 08/31/21 03:32 Specimen Type Arterial 09/01/21 04:25 Sample Site Radial, right 09/01/21 04:25 ABG pH 7.41 (7.35-7.45) 09/01/21 04:25 ABG pCO2 41.3 mmHg (35-45) 09/01/21 04:25 ABG pO2 97.3 mmHg (80.0-100.0) 09/01/21 04:25 ABG HCO3 26.3 mmol/L (22-26) H 09/01/21 04:25 ABG O2 Saturation 96.6 08/31/21 20:49 ABG Base Excess 1.4 mmol/L (-2.0-2.0) 09/01/21 04:25 Suraj Test Pos 09/01/21 04:25 A-a O2 Gradient 54.7 mmHg (5-10) H 08/31/21 20:49 Hematocrit 46.1 % (37-47) 09/01/21 04:25 Hgb O2 Saturation 94.5 % (95-100) L 08/31/21 20:49 Carboxyhemoglobin 0.5 %THgb (0.4-20.1) 08/31/21 20:49 Methemoglobin 1.7 % (0.4-1.5) H 08/31/21 20:49 Total Hemoglobin 11.4 g/dL (12-16) L 08/31/21 20:49 Sodium 134.0 mmol/L (131-143) 08/31/21 20:49 Potassium 4.4 mmol/L (3.5-5.0) 08/31/21 20:49 Glucose 235.0 mg/dL (70-115) H 08/31/21 20:49 Ionized Calcium 1.2 mmol/L (1.1-1.4) 08/31/21 20:49 O2 Delivery Device Vent 09/01/21 04:25 O2 Liters/Min 50.0 % 08/28/21 17:41 FiO2 60.0 % 09/01/21 04:25 Tidal Volume 0.40 09/01/21 04:25 PEEP 8.0 cmH20 09/01/21 04:25 Stockroom Supervisor ID Dominick 09/01/21 04:25 Sodium 130 mmol/L (136-145) L 09/01/21 03:07 Potassium 4.8 mmol/L (3.5-5.1) 09/01/21 03:07 Chloride 98 mmol/L (98-107) 09/01/21 03:07 Carbon Dioxide 20 mmol/L (22-29) L 09/01/21 03:07 Anion Gap 16.8 (5-19) 09/01/21 03:07 BUN 14 mg/dL (6-20) 09/01/21 03:07 Creatinine 0.6 mg/dL (0.5-0.9) 09/01/21 03:07 GFR Calculation 102.3 mL/min (90-130) 09/01/21 03:07 Glucose 153 mg/dL (65-115) H 09/01/21 03:07 POC Glucose 131 mg/dL (70-110) H 08/29/21 11:26 Calculated Osmolality 274 mOsm/kg (285-295) L 09/01/21 03:07 Lactic Acid 1.3 mmol/L (0.5-2.2) 08/18/21 06:49 Calcium 8.4 mg/dL (8.5-10.5) L 09/01/21 03:07 Phosphorus 2.7 mg/dL (2.5-4.5) 08/19/21 04:08 Magnesium 2.2 mg/dL (1.7-2.3) 09/01/21 03:07 Iron 12 ug/dL (37-145) L 08/18/21 05:41 TIBC 249 mcg/dl 08/18/21 05:41 % Saturation 4.8 % (20-50) L 08/18/21 05:41 Unsat Iron Binding 237 ug/dL (112-347) 08/18/21 05:41 Total Bilirubin 0.2 mg/dL (0.15-1.2) 09/01/21 03:07 AST 33 U/L (0-32) H 09/01/21 03:07 ALT 19 U/L (0-33) 09/01/21 03:07 Alkaline Phosphatase 84 IU/L (35-105) 09/01/21 03:07 Lactate Dehydrogenase 1166 U/L (135-214) H 08/29/21 03:55 Creatine Kinase 256 U/L (26-192) H 08/30/21 04:23 Troponin T Gen 5 ng/L 31 ng/L (0-10) H 08/27/21 07:25 C-Reactive Protein 4.2 mg/L (0.0-4.9) 08/31/21 03:32 NT-Pro-B Natriuret Pep 226 pg/mL (0-125) H 08/18/21 05:41 NT-Pro-B Natriuret Pep 242 pg/mL (0-125) H 08/18/21 05:41 Total Protein 5.1 g/dL (6.6-8.7) L 09/01/21 03:07 Albumin 3.3 g/dL (3.5-5.2) L 09/01/21 03:07 Globulin 1.8 g/dL (1.3-4.6) 09/01/21 03:07 Triglycerides 174 mg/dL (0-150) H 08/30/21 04:23 Procalcitonin 0.05 ng/mL (0-0.5) 08/30/21 04:23 TSH 1.07 uIU/mL (0.27-4.20) 08/18/21 05:41 Urine Color Yellow (Yellow) 08/23/21 03:30 Urine Appearance Sl cloudy (CLEAR) A 08/23/21 03:30 Urine pH 6 (5-7) 08/23/21 03:30 Ur Specific [place] 1.010 (1.005-1.030) 08/23/21 03:30 Urine Protein 1+ (Negative) H 08/23/21 03:30 Urine Glucose (UA) Norm (Normal) 08/23/21 03:30 Urine Ketones 1+ (Negative) H 08/23/21 03:30 Urine Blood 3+ (Negative) H 08/23/21 03:30 Urine Nitrate Negative (Negative) 08/23/21 03:30 Urine Bilirubin Neg (Negative) 08/23/21 03:30 Urine Urobilinogen Norm mg/dL (Negative) 08/23/21 03:30 Ur Leukocyte Esterase 1+ (Negative) H 08/23/21 03:30 Urine RBC Too numerous to cnt /hpf (0-2) H 08/23/21 03:30 Urine WBC >100 /hpf (0-5) H 08/23/21 03:30 Ur Squamous Epith Cells 0-4 /hpf (0-5) H 08/23/21 03:30 Amorphous Sediment Not Reportable 08/23/21 03:30 Urine Bacteria 2+ /hpf (NONE) H 08/23/21 03:30 Fluid Source 08/29/21 11:00 Fluid Color Cancelled 08/29/21 11:00 Fluid Appearance Cancelled 08/29/21 11:00 Fluid WBC Cancelled 08/29/21 11:00 Fluid RBC Cancelled 08/29/21 11:00 Fluid Tot Cell Count Cancelled 08/29/21 11:00 Fld Polynuclear WBCs # Cancelled 08/29/21 11:00 Fld Polynuclear WBCs % Cancelled 08/29/21 11:00 Fl Mononucl WBCs #(Auto) Cancelled 08/29/21 11:00 Fl Mononuclear % Auto Cancelled 08/29/21 11:00 Bronch Specimen Source L. lower lobe 08/29/21 11:00 Bronchial Fluid Color Colorless 08/29/21 11:00 Bronchial Fluid Appearance Hazy (CLEAR) 08/29/21 11:00 Bronchial Fluid WBC 400 /uL 08/29/21 11:00 Bronchial Fluid RBC 350 10^3/uL 08/29/21 11:00 Bronch Cells Counted 200 08/29/21 11:00 Bronchial Neutrophils 68.00 % (0.9-2.3) H 08/29/21 11:00 Bronchial Lymphocytes 11.00 % (10.71-12.91) 08/29/21 11:00 Bronchial Eosinophils 3.00 % (0.13-0.25) H 08/29/21 11:00 Bronchial Macrophages 18.00 % (83.6-86.8) L 08/29/21 11:00 Bronchial Diff Comment Yes 08/29/21 11:00 Vancomycin Trough 23.4 ug/mL (10-15) H 08/31/21 03:32 Pneumocystis Source 08/29/21 11:00 Pneumocystis DNA (PCR) No dna detected copies/mL 08/29/21 11:00 Pneumocyst jiroveci PCR Not detected 08/29/21 11:00 Micro: Microbiology 08/28/21 06:35 Gram Stain - Final Sputum - Expectorated Sputum Sputum Culture - Final Patrica albicans 08/29/21 16:20 Gram Stain - Final Sputum - Endotracheal Tube Aspirate Sputum Culture - Final 08/29/21 11:00 Gram Stain - Final Lung Left Lower Lobe Bronchoalveolar Lavage Culture - Final A&P Assessment and plan (1) Acute respiratory failure with hypoxia: Status: Acute (2) COVID-19: Status: Acute (3) HTN (hypertension): Status: Acute (4) Hypothyroidism: Status: Acute (5) Acute respiratory distress syndrome (ARDS) due to 2019 novel coronavirus: Status: Acute (6) Anxiety: Status: Acute (7) Pulmonary embolism associated with COVID-19: Status: Acute (8) Goals of care, counseling/discussion: Status: Acute Plan #Acute hypoxic respiratory failure secondary to ARDS due to COVID-19 pneumonia #Pulmonary embolism, #Hypertension #Hypothyroidism -Worsening hypoxia Secondary to COVID-19 pneumonia/PE/possible PCP pneumonia -Intubated, sedated with fentanyl, Versed, propofol , Paralyzed-completed 3 proning sessions -ABG 7.4 / on CMV 400/60%/8-after3 proning sessions; chest x-ray today showed improving infiltrates -plan is to prone for fourth session today -Patient's respiratory is 3-class II risk class-76% in-hospital survival- patient is 61-year-old with history of anxiety, hypertension, hypothyroidism and joint pains-she would benefit from ECMO if no improvement with proning sessionswe will involve family and make referral to [facility] centers -Completed 5-day course of remdesivir, dexamethasone, 1 dose of Tocilizumab, and received baricitinib few doses Discontinued in view of discontinued in view of possible secondary infection - CTA 08/18/2021 was negative for pulmonary embolism but secondary to markedly elevated dimer on full dose anticoagulation with Lovenox later switched to El iquis 5 mg twice daily--due to worsening FiO2 requirements CTA was repeated 08/28/2021 which showed multiple small pulmonary emboli in first order to segmental branches of right pulmonary artery and worsening bilateral pneumonia; -Eliquis switched to Heparin drip -Performed bronchoscopy post intubation and BAL fluid was neutrophil predominant, send BAL from left upper lobe for Gram stain and cultures, fungal cultures, PCP PCR --DC Bactrim as patient BAL negative for PCP PCR; DC vancomycin as MRSA nares negative -currently broadly covered with Primaxin, -We will taper prednisone 40 twice daily to 40 daily -Sputum 08/29/2021 growing yeast-Patrica albicans-most likely commensal - Echocardiogram demonstrated preserved EF, mild pulmonary hypertension -Currently on Lasix 40 mg daily-monitor input output/electrolytes/renal functions and try to keep net negative -DVT prophylaxis heparin drip -GI prophylaxis: PPI-senna docusate for BR -Start tube feeding at 30 cc while supine -Full code -Family updated And reported we will continue with proning session-if patient does not improve in the next 24 to 48 hours will refer to ECMO Patient conveyed to hospitalist, RN, RT taking care of the patient Attestations Medical Necessity Statement*: Acute hypoxic respiratory failure secondary to ARDS due to COVID-19 pneumonia/pulmonary embolism/possible PCP pneumonia requiring mechanical ventilation and close monitoring in ICU Time Spent in Patient Care: Greater than 35 minutes (>than 50% of time spent in counselling and/or direct pt care on unit) . Critical Care Time: The high probability of a clinically significant, sudden or life threatening deterioration of the patient's [respiratory, infectious system(s) required my full and direct attention, intervention and personal management. The critical care time is as shown. This time is in addition to time spent performing any reported procedures but includes the following: [x] Data and vital sign review and interpretation [x] Patient assessment, examination and intervention [x] Documentation [x] Medication orders and management Critical Care Time (min): 45 Coding Level of Care Code Acute Quad Stayer for g Fwd Diagnoses Acute respiratory failure with hypoxia J96.01 COVID-19 U07.1 HTN (hypertension) I10 Hypothyroidism E03.9 Acute respiratory distress syndrome (ARDS) due to 2019 novel coronavirus U07.1; J80 Anxiety F41.9 Pulmonary embolism associated with COVID-19 U07.1; I26.99 Goals of care, counseling/discussion Z71.89 Time Spent (min) 45
[2021-09-01 16:35] LABS: Partial Thromboplastin Time 67.2 SECONDS (23.9-36.7)
[2021-09-01] MEDS: fluconazole premix 100 MG in empty flexible container 1 EACH 50 MG IV (17:16)
--- NOTE | 2021-09-01 18:05 | PC.NURSE ---
Pt still attempting to pull at tubes despite current sedation. Precedex started.
--- NOTE | 2021-09-01 19:00 | PC.NURSE ---
Fentanyl Upon assessment of patient, Fentanyl administering at 175 mcg/hr with a volume of approximately 205 mls remaining in bag, while MAR shows 1750 mcg/hr. MAR also shows fentanyl bag as infused at 1820 with no volume left. MAR unable to be updated due to previous nurse documentation. This bag to run until new bag needed. See MAR for start of new bag.
[2021-09-01 21:50] LABS: Partial Thromboplastin Time 79.1 SECONDS (23.9-36.7)
[2021-09-01] MEDS: trazodone 100 mg Tablet 200 MG PO (21:55)
--- NOTE | 2021-09-01 22:30 | PC.NURSE ---
Prone Patient placed prone with 4 RN and 1 RT. No complications arose. Care continued.
[2021-09-02] VITALS (83 sets, daily range): BP systolic 66–136; BP diastolic 43–100; PULSE 80–123; RESP 26–33; TEMP 36.7–38.7; O2SAT 86–96; BMI 33.4
[2021-09-02] MEDS: cisatracurium 100 MG in sodium chloride 0.9% 50 ML 11.18 MG IV ×2 (00:01→08:38)
--- NOTE | 2021-09-02 01:55 | PC.NURSE ---
Hematuria Blood observed in urine in montano catheter. Dr. Talamantes aware; verbal order to alert if more hematuria noted.
[2021-09-02] MEDS: propofol 1,000 MG/100 ML INJ 31.04 MG IV ×4 (03:15→12:01)
[2021-09-02] MEDS: levalbuterol 0.63 mg/3 mL Neb INHALATION ×5 (04:20→20:08)
[2021-09-02] MEDS: ipratropium 0.5 mg/2.5 mL Neb INHALATION ×5 (04:20→20:08)
[2021-09-02 05:11] LABS: ABG PCO2 37.8 mmHg (35-45); ABG PH Result 7.43 (7.35-7.45); Arterial Blood Gas Hematocrit 42.5 % (37-47); Blood Gas Allen Test Pos; Blood Gas Sample Type Arterial; HCO3 ABG 25.2 mmol/L (22-26)
[2021-09-02 05:12] LABS: Blood Gas Operator Identificat JB; Blood Gas Sample Site Radial, right; Oxygen Device VENT
[2021-09-02 05:17] LABS: Basophils # 0.2 10^3/uL (0.0-0.1); Basophils % 0.5 %; Eosinophils # 0.6 10^3/uL (0.0-0.8); Eosinophils % 1.8 %; Hematocrit 28.9 % (37.0-47.0); Hemoglobin 9.5 g/dL (11.5-15.3); Lymphocytes # 2.5 10^3/uL (0.8-4.8); Mean Corpuscular HGB Conc 32.9 g/dL (30.0-36.0); Mean Corpuscular Hemoglobin 30.1 pg (28.0-34.0); Mean Corpuscular Volume 91.5 fl (81-99); Monocytes # 4.1 10^3/uL (0.2-0.9); Monocytes % 11.6 %; Neutrophils # 23.94 10^3/uL (1.8-7.7); Neutrophils % 68.5 %; Nucleated Red Blood Cells # 0.8 /100WBC; Nucleated Red Blood Cells % 2.2 %; Platelet Count 185 10^3/cmm (130-400); Red Blood Count 3.16 10^6/uL (4.1-5.3); Red Cell Distribution Width 14.7 % (12.1-15.1)
[2021-09-02] MEDS: levoFLOXacin 750 mg Tablet PO (05:26)
[2021-09-02 05:28] LABS: Partial Thromboplastin Time 68.4 SECONDS (23.9-36.7)
[2021-09-02 05:30] LABS: D Dimer 1.45 ug/mIFEU (0-0.59)
[2021-09-02 05:32] LABS: Alanine Aminotransferase 23 U/L (0-33); Albumin Level 3.2 g/dL (3.5-5.2); Alkaline Phosphatase 79 IU/L (35-105); Anion Gap 12.3 (5-19); Aspartate Amino Transferase 36 U/L (0-32); Blood Urea Nitrogen 22 mg/dL (6-20); Calcium 7.9 mg/dL (8.5-10.5); Carbon Dioxide 25 mmol/L (22-29); Chloride 97 mmol/L (98-107); Globulin 1.9 g/dL (1.3-4.6); Glomerular Filtration Rate 85.6 mL/min (90-130); Glucose 139 mg/dL (65-115); Osmolality Calculated 276 mOsm/kg (285-295); Potassium 4.3 mmol/L (3.5-5.1); Sodium 130 mmol/L (136-145); Total Bilirubin 0.2 mg/dL (0.15-1.2); Total Protein 5.1 g/dL (6.6-8.7)
[2021-09-02 05:35] LABS: Slide Review Slide Review Perform
--- NOTE | 2021-09-02 06:00 | XR_ITS ---
WS: [id number] XR chest 1V portable [id number] REASON FOR EXAM: covid FINDINGS: Right jugular central venous line, endotracheal tube, and nasogastric tube remain in proper position. Diffuse bilateral pulmonary opacities are relatively unchanged compared to 09/01/2021. No new findings identified. XR/XR chest 1V portable [id number] IMPRESSION: Stable abnormal chest.
--- NOTE | 2021-09-02 06:34 | PC.NURSE ---
BIS/TRAIN OF 4 BIS Train of 1999 52 4 2200 40 4 0000 37 4 0200 30 4 0400 39 4 0600 40 4
[2021-09-02] MEDS: budesonide 0.5 mg/2 mL Neb INHALATION ×2 (07:56→20:08)
[2021-09-02] MEDS: bisacodyl 5 mg Tablet 10 MG PO (08:14)
[2021-09-02] MEDS: pantoprazole DR 40 mg Tablet PO (08:15)
[2021-09-02] MEDS: montelukast sodium 10 mg Tablet PO (08:15)
[2021-09-02] MEDS: lactulose oral liq 20 gm/30 mL UDC 10 GM PO (08:15)
[2021-09-02] MEDS: zinc gluconate 50 mg Tablet PO (08:15)
[2021-09-02] MEDS: aspirin 81 mg EC Tablet PO (08:15)
[2021-09-02] MEDS: topiramate 100 mg Tablet PO (08:15)
[2021-09-02] MEDS: levothyroxine 25 mcg Tablet PO (08:15)
[2021-09-02] MEDS: ascorbic acid 500 mg Tablet PO (08:15)
[2021-09-02] MEDS: ferrous gluconate 324 mg Tablet PO ×2 (08:15→16:11)
[2021-09-02] MEDS: sennosides-docusate Tablet 1 TAB PO (08:15)
[2021-09-02] MEDS: heparin drip 25,000 UNIT/500 ML PREMIX 28 UNIT IV (08:17)
[2021-09-02 08:50] LABS: Basophils # 0.1 10^3/uL (0.0-0.1); Basophils % 0.4 %; Eosinophils # 0.8 10^3/uL (0.0-0.8); Eosinophils % 2.2 %; Hematocrit 27.9 % (37.0-47.0); Lymphocytes # 2.9 10^3/uL (0.8-4.8); Lymphocytes % 8.3 %; Mean Corpuscular HGB Conc 32.3 g/dL (30.0-36.0); Mean Corpuscular Hemoglobin 30.1 pg (28.0-34.0); Mean Corpuscular Volume 93.3 fl (81-99); Mean Platelet Volume 10.5 fL (7.4-10.4); Monocytes % 11.6 %; Neutrophils # 23.02 10^3/uL (1.8-7.7); Neutrophils % 66.7 %; Nucleated Red Blood Cells # 0.7 /100WBC; Nucleated Red Blood Cells % 2.1 %; Platelet Count 167 10^3/cmm (130-400); Red Blood Count 2.99 10^6/uL (4.1-5.3); Red Cell Distribution Width 14.9 % (12.1-15.1)
[2021-09-02 09:11] LABS: Slide Review Slide Review Perform; White Blood Count 34.5 10^3/uL (4.0-10.0)
--- NOTE | 2021-09-02 09:27 | PC.SOCIAL ---
IMM Not Updated Pg. 2 of IMM not updated; patient remains intubated at this time.
[2021-09-02] MEDS: FUROsemide 10 mg/mL SDV 2mL 20 MG IVP (10:50)
[2021-09-02 10:56] LABS: Procalcitonin 0.15 ng/mL (0-0.5)
[2021-09-02 11:53] LABS: Partial Thromboplastin Time 72.4 SECONDS (23.9-36.7)
[2021-09-02] MEDS: enoxaparin 100 mg/mL Syringe 90 MG SUBCUT ×2 (12:03→21:57)
--- NOTE | 2021-09-02 15:00 | PC.NURSE ---
Supine at 1500
[2021-09-02] MEDS: albumin 12.5 GM/50 ML VIAL IV (16:10)
[2021-09-02] MEDS: sodium chloride 0.9% 1,000 ML 999 ML IV (16:11)
[2021-09-02 17:00] LABS: Cortisol Random 10.46 ug/dL (2.47-19.5)
[2021-09-02] MEDS: predniSONE 20 mg Tablet 40 MG PO (17:02)
[2021-09-02] MEDS: hydrocortisone 100 mg/2 mL SDV IVP (17:04)
[2021-09-02] MEDS: fluconazole premix 100 MG in empty flexible container 1 EACH 50 MG IV (17:04)
--- NOTE | 2021-09-02 17:26 | PM.PN ---
Subjective Subjective: Seen multiple times during the day. Patient was proned earlier in the day today. Post supination patient saturation maintained stable and FiO2 was turned down to 40%. Current ventilator settings FiO2 40%, PEEP of 8, tidal volume of 400. During the day patient had episode of hypotension for which Levophed was started going as high as 15. She was given a bolus of normal saline along with albumin and 100 mg of Solu-Cortef after which Levophed was weaned down. Urine output in last 24 hours 1800 cc. Medications: Reviewed: Yes Vitals/I&O/Wt Last Vital Signs Temp 98.1 F 09/02/21 08:00 Pulse 121 H 09/02/21 15:48 Resp 29 H 09/02/21 15:48 BP 95/58 09/02/21 12:31 Pulse Ox 91 09/02/21 15:48 09/02/21 09/02/21 09/02/21 06:59 14:59 22:59 Intake Total 855.706 / 2738.165 775.903 / 775.903 Output Total 600 / 1850 Balance 255.706 / 888.165 775.903 / 775.903 Weight last 48 hrs Weight 94.03 kg Physical Exam Narrative: General: Intubated sedated, paralyzed HEENT: PERRLA, pupils bilaterally equal and reactive Chest: Bronchial type breath sounds bilaterally, coarse crackles present bilaterally all over the lung pereira equal good air entry bilaterally CVS: S1-S2 regular, no murmurs, no tachycardia, no gallops, no rubs Abdomen: Soft, nontender, no organomegaly, bowel sounds present Neuro: Intubated sedated Urinary Catheter Management: Gomez: Cath Placed During This Visit: yes Reason for Continuing Indwelling Catheter: Accurate Measurement of Urinary Output in Critically Ill Patients Urinary Catheter Date of Insertion: 08/29/21 Urinary Catheter Time of Insertion: 01:18 Data : 09/02/21 08:30 09/02/21 05:00 Micro: Microbiology 09/02/21 11:18 Blood Culture - Preliminary Blood SPECIMEN COLLECTED 09/02/21 11:16 Blood Culture - Preliminary Blood SPECIMEN COLLECTED 08/29/21 11:00 Fungal Smear - Preliminary Sputum - Endotracheal Wash A&P Assessment and plan (1) Acute respiratory distress syndrome (ARDS) due to 2019 novel coronavirus: Status: Acute (2) Septic shock: Status: Acute (3) COVID-19: Status: Acute (4) Pulmonary embolism associated with COVID-19: Status: Acute (5) HTN (hypertension): Goal blood pressure less than 140/90 mmHg. Continue home dose of losartan. Status: Acute (6) Hypothyroidism: Continue with home dose of levothyroxine. TSH appreciated. Status: Acute (7) Anxiety: Continue home dose of topiramate, trazodone. Status: Acute Plan ARDS: Secondary to COVID-19 pneumonia, most likely superimposed bacterial pneumonia, pulmonary embolism: Severe disease. Intubated 08/29. Undergoing proning sessions.. Post 3 proning session. Plan to prone later in the day again. Oxygen supplementation keeping saturation over 88%. Change ventilator settings accordingly. Has finished dexamethasone 6 mg IV daily course. Continue prednisone 40 mg twice daily for now. Finished remdesivir course. Post Actemra on 08/19. Dexamethasone 6 mg daily. Post 1 dose Actemra on 08/19. Vitamin C, zinc. Ipratropium, Xopenex every 4 hour, budesonide twice daily We will monitor inflammatory markers including CRP, D-dimer every 48 hours. D-dimer has trended down. D-dimer continues to trend down. Stop heparin drip. Start on full dose anticoagulation with Lovenox 1 mg/kg body weight every 12 hourly.. High suspicion of bacterial pneumonia. For now continue with imipenem and Levaquin.. MRSA negative, PCP negative. Continue with fluconazole for overall 7-day course of appropriate antifungals for Patrica albicans in bronchial lavage specimen. Urine Legionella, bacterial antigen, MRSA negative. Patient does have leukocytosis today. Check procalcitonin. Check blood cultures. Patient has remained afebrile. For now will hold off on adding any antibiotics. Continue with antibiotics as above. Given hypoxia will try to keep patient as negative as possible. Echocardiogram shows an EF of 70% without any regional motion abnormality, normal diastolic dysfunction, RVSP of 45. Overall patient 4 L negative. IV Lasix 20 mg once. Replace electrolytes. Strict input output charting, daily weights. Septic shock: Combination of possible adrenal crisis along with hypovolemia. Add random cortisol to morning lab labs though would be edginess as patient has been on steroids. Patient's blood pressure low. Patient has not received any dose of steroid today. Restart prednisone 40 mg daily from tomorrow. For now as patient's blood pressures are low will give Solu-Cortef 100 mg stat which would equal into 25 mg of oral prednisone along with 20 mg of oral prednisone Wean Levophed keeping mean arterial pressure over 65. Start on tube feeds with Pulmocare at 10 cc/h, increase 10 cc every 4 hours with goal rate of 50. Stop tube feeds 1 hour prior to proning. Free water flushes 100 cc every 6 hours Full code. Dose Lovenox will help with DVT prophylaxis. Protonix for PUD prophylaxis. Appreciate zinc furnace charger recommendation. Patient's daughter Ms. Hoyt updated over the phone at [phone]. Care also discussed with patient's over the phone. All the questions were answered. Isolation to end on 21 days post positive test. 08/30 Patient's care did discuss in detail with zinc furnace charger Dr. oMon at [facility]. He states currently they do not have any ECMO circuits available in their hospital and patient still has room to go up on FiO2 and PEEP if needed. He suggests few more proning sessions. He suggests if patient does not improve after a few more proning session to call back to see if they have any bed available. Plan for day: Post proning plContinue with imipenem and Levaquin along with fluconazole. Hold off on any further Lasix. 1 L bolus of normal saline, albumin 12.5 g 25%. Continue with prednisone 40 mg oral daily. Switch from heparin drip to full dose Lovenox 1 mg/kg body weight every 12 hourly. Attestations Medical Necessity Statement*: Requires further hospital for management ARDS secondary to COVID-19 pneumonia, superimposed bacterial pneumonia, pulmonary embolism, septic shock Critical Care Time: The high probability of a clinically significant, sudden or life threatening deterioration of the patient's [pulmonary, cardiac, renal system(s) required my full and direct attention, intervention and personal management. The critical care time is as shown. This time is in addition to time spent performing any reported procedures but includes the following: [x] Data and vital sign review and interpretation [x] Patient assessment, examination and intervention [x] Documentation [x] Medication orders and management Critical Care Time (min): 90 Coding Level of Care Code Acute Pizza Delivery for [facility] Fwd Diagnoses COVID-19 U07.1 HTN (hypertension) I10 Hypothyroidism E03.9 Anxiety F41.9 Pulmonary embolism associated with COVID-19 U07.1; I26.99 Acute respiratory distress syndrome (ARDS) due to 2019 novel coronavirus U07.1; J80 Septic shock A41.9; R65.21
[2021-09-02] MEDS: propofol 1,000 MG/100 ML INJ 6.21 MG IV (17:39)
[2021-09-02 17:49] LABS: Partial Thromboplastin Time 25.5 SECONDS (23.9-36.7)
--- NOTE | 2021-09-02 18:27 | PC.NURSE ---
Pt had episode of hypotension this afternoon. Levo at max rate of 20. at bedside and gave verbal orders for abumin, 1L bolus, prednisone and solumedrol. All meds given per orders. MAP improved.
--- NOTE | 2021-09-02 19:00 | PC.NURSE ---
MAR Upon assessment of patient, the following drips were administering at the following rates: Nimbex paused, precedex at 0.4 mcg/kg/hr, and levophed at 18 mcg/min. MAR displayed: Nimbex at 1.8 mcg/kg/min, precedex paused, and levophed at 2 mcg/min. MAR updated to show actual administration.
--- NOTE | 2021-09-02 19:21 | PC.NUTR ---
When medically appropriate to resume TF, recommend starting Pulmicare 1.5@ 10 mls/hr, increasing 10 mls Q8H as tolerated to goal rate of 40 mls/hr with flushes of 150 mls Q4H or per MD discretion. Details in RD assessment.
[2021-09-02] MEDS: acetaminophen 325 mg Tablet 650 MG PO (20:08)
[2021-09-02] MEDS: trazodone 100 mg Tablet 200 MG PO (20:09)
[2021-09-02] MEDS: norepinephrine 8 MG in dextrose 5 % 500 ML 60.96 MG IV (20:40)
--- NOTE | 2021-09-02 21:18 | PC.NURSE ---
Temperature Patient's axillary temperature 101.6F. Blankets removed from patient, room temperature decreased, tylenol administered per MAR, and icepacks placed under arms/ on groin. To monitor. All other vitals stable.
--- NOTE | 2021-09-02 21:21 | P.PN_ITS ---
Subjective Subjective: -Patient seen at bedside today -Earlier completed her fourth proning session and FiO2 down to 40% -He was requiring pressor Levophed up to 18 mics-received Solu-Medrol and albumin -Expect to come down on pressor dose while tapering down sedation -Labs revealed leukocytosis 35K-and had fever spikes today evening-sent for pancultures and added vancomycin, patient already on imipenem Medications: Reviewed: Yes Vitals/I&O/Wt Last Vital Signs Temp 100.3 F H 09/02/21 18:01 Pulse 101 H 09/02/21 20:04 Resp 28 H 09/02/21 20:04 BP 115/61 09/02/21 18:01 Pulse Ox 89 L 09/02/21 20:04 09/02/21 09/02/21 09/02/21 06:59 14:59 22:59 Intake Total 855.706 / 2738.165 775.903 / 775.903 705.620 / 1481.523 Output Total 600 / 1850 250 / 250 Balance 255.706 / 888.165 775.903 / 775.903 455.620 / 1231.523 Weight last 48 hrs Weight 207 lb 4.8 oz Physical Exam Narrative: PHYSICAL EXAM: General: lying in bed, sedated, intubated- HEENT:NCAT, PERRLA, EOMI Neck: Supple Lungs: Improving breath sounds Heart: s1/s2, RRR Abd: soft, NT, ND, BS + Normoactive Extremities: No edema FLOATING OPERATOR: sedated and limited FLOATING OPERATOR exam possible. SKIN: no rash LDA: # CVC: Right IJ 08/30/2021 Urinary Catheter Management: Gomez: Cath Placed During This Visit: yes Reason for Continuing Indwelling Catheter: Accurate Measurement of Urinary Output in Critically Ill Patients Urinary Catheter Date of Insertion: 08/29/21 Urinary Catheter Time of Insertion: 01:18 Data : 09/02/21 08:30 09/02/21 05:00 Other Labs: Radiology Impressions Chest CTA 08/28/21 08:21 IMPRESSION: 1. Multiple small pulmonary emboli in 1st order through segmental branches of the right pulmonary artery. 2. Bilateral pneumonia, appears worsened when compared to the prior study. COMMENTS: Consistent with the [employer]'s Incidental Findings Committee white paper (J Am Margie Radiol 2018): Any incidental renal lesion less than 1 cm or classified as too small to characterize, or any incidental cystic renal lesion characterized as simple-appearing, is likely benign. No follow-up imaging is recommended for these lesions per consensus recommendations based on imaging criteria. Chest X-Ray 09/02/21 06:00 IMPRESSION: Stable abnormal chest. Laboratory Results WBC 34.5 10^3/uL (4.0-10.0) H* 09/02/21 08:30 RBC 2.99 10^6/uL (4.1-5.3) L 09/02/21 08:30 Hgb 9.0 g/dL (11.5-15.3) L 09/02/21 08:30 Hct 27.9 % (37.0-47.0) L 09/02/21 08:30 MCV 93.3 fl (81-99) 09/02/21 08:30 MCH 30.1 pg (28.0-34.0) 09/02/21 08:30 MCHC 32.3 g/dL (30.0-36.0) 09/02/21 08:30 RDW 14.9 % (12.1-15.1) 09/02/21 08:30 Plt Count 167 10^3/cmm (130-400) 09/02/21 08:30 MPV 10.5 fL (7.4-10.4) H 09/02/21 08:30 Neut % (Auto) 66.7 % 09/02/21 08:30 Lymph % (Auto) 8.3 % 09/02/21 08:30 Mills % (Auto) 11.6 % 09/02/21 08:30 Eos % (Auto) 2.2 % 09/02/21 08:30 Baso % (Auto) 0.4 % 09/02/21 08:30 Neut # (Auto) 23.02 10^3/uL (1.8-7.7) H 09/02/21 08:30 Lymph # (Auto) 2.9 10^3/uL (0.8-4.8) 09/02/21 08:30 Mills # (Auto) 4.0 10^3/uL (0.2-0.9) H 09/02/21 08:30 Eos # (Auto) 0.8 10^3/uL (0.0-0.8) 09/02/21 08:30 Baso # (Auto) 0.1 10^3/uL (0.0-0.1) 09/02/21 08:30 Nucleated RBC % (auto) 2.1 % 09/02/21 08:30 Total Counted 100 (0-100) 09/01/21 03:07 Atypical Lymphs % 1.0 % (0-5) 09/01/21 03:07 Absolute Neutrophils 19.4 10^3/cmm (1.4-6.5) H 09/01/21 03:07 Segmented Neutrophils 77 % 09/01/21 03:07 Abs Segm Neuts (Man) 18.5 10/cmm (1.6-7.1) H 09/01/21 03:07 Band Neutrophils 4.0 % 09/01/21 03:07 Abs Band Neuts (Man) 1.0 10^3/cmm (0.0-1.2) 09/01/21 03:07 Absolute Lymphocytes 2.4 10^3/cmm (1.2-3.4) 09/01/21 03:07 Lymphocytes (Manual) 9 % 09/01/21 03:07 Monocytes (Manual) 6.0 % 09/01/21 03:07 Absolute Monocytes 1.4 10^3/cmm (0.1-0.6) H 09/01/21 03:07 Eosinophils (Manual) 0 % 09/01/21 03:07 Absolute Eosinophils 0.0 10^3/cmm (0.0-0.7) 09/01/21 03:07 Basophils (Manual) 0.0 % 09/01/21 03:07 Absolute Basophils 0.0 10^3/cmm (0.0-0.2) 09/01/21 03:07 Metamyelocytes 2.0 % 09/01/21 03:07 Myelocytes 1.0 % 09/01/21 03:07 Nucleated RBCs # 0.7 /100WBC 09/02/21 08:30 Differential Comment Cancelled 08/29/21 11:00 Platelet Estimate Normal (Normal) 09/01/21 03:07 APTT 25.5 SECONDS (23.9-36.7) D 09/02/21 17:09 D-Dimer 1.45 ug/mIFEU (0-0.59) H 09/02/21 05:00 Specimen Type Arterial 09/02/21 04:55 Sample Site Radial, right 09/02/21 04:55 ABG pH 7.43 (7.35-7.45) 09/02/21 04:55 ABG pCO2 37.8 mmHg (35-45) 09/02/21 04:55 ABG pO2 105.0 mmHg (80.0-100.0) H 09/02/21 04:55 ABG HCO3 25.2 mmol/L (22-26) 09/02/21 04:55 ABG O2 Saturation 96.6 08/31/21 20:49 ABG Base Excess 1.0 mmol/L (-2.0-2.0) 09/02/21 04:55 Suraj Test Pos 09/02/21 04:55 A-a O2 Gradient 54.7 mmHg (5-10) H 08/31/21 20:49 Hematocrit 42.5 % (37-47) 09/02/21 04:55 Hgb O2 Saturation 94.5 % (95-100) L 08/31/21 20:49 Carboxyhemoglobin 0.5 %THgb (0.4-20.1) 08/31/21 20:49 Methemoglobin 1.7 % (0.4-1.5) H 08/31/21 20:49 Total Hemoglobin 11.4 g/dL (12-16) L 08/31/21 20:49 Sodium 134.0 mmol/L (131-143) 08/31/21 20:49 Potassium 4.4 mmol/L (3.5-5.0) 08/31/21 20:49 Glucose 235.0 mg/dL (70-115) H 08/31/21 20:49 Ionized Calcium 1.2 mmol/L (1.1-1.4) 08/31/21 20:49 O2 Delivery Device Vent 09/02/21 04:55 O2 Liters/Min 50.0 % 08/28/21 17:41 FiO2 60.0 % 09/02/21 04:55 Tidal Volume 0.40 09/02/21 04:55 PEEP 8.0 cmH20 09/02/21 04:55 Credit Representative ID Dominick 09/02/21 04:55 Sodium 130 mmol/L (136-145) L 09/02/21 05:00 Potassium 4.3 mmol/L (3.5-5.1) 09/02/21 05:00 Chloride 97 mmol/L (98-107) L 09/02/21 05:00 Carbon Dioxide 25 mmol/L (22-29) 09/02/21 05:00 Anion Gap 12.3 (5-19) 09/02/21 05:00 BUN 22 mg/dL (6-20) H 09/02/21 05:00 Creatinine 0.7 mg/dL (0.5-0.9) 09/02/21 05:00 GFR Calculation 85.6 mL/min (90-130) L 09/02/21 05:00 Glucose 139 mg/dL (65-115) H 09/02/21 05:00 POC Glucose 131 mg/dL (70-110) H 08/29/21 11:26 Calculated Osmolality 276 mOsm/kg (285-295) L 09/02/21 05:00 Lactic Acid 1.3 mmol/L (0.5-2.2) 08/18/21 06:49 Calcium 7.9 mg/dL (8.5-10.5) L 09/02/21 05:00 Phosphorus 2.7 mg/dL (2.5-4.5) 08/19/21 04:08 Magnesium 2.2 mg/dL (1.7-2.3) 09/01/21 03:07 Iron 12 ug/dL (37-145) L 08/18/21 05:41 TIBC 249 mcg/dl 08/18/21 05:41 % Saturation 4.8 % (20-50) L 08/18/21 05:41 Unsat Iron Binding 237 ug/dL (112-347) 08/18/21 05:41 Total Bilirubin 0.2 mg/dL (0.15-1.2) 09/02/21 05:00 AST 36 U/L (0-32) H 09/02/21 05:00 ALT 23 U/L (0-33) 09/02/21 05:00 Alkaline Phosphatase 79 IU/L (35-105) 09/02/21 05:00 Lactate Dehydrogenase 1166 U/L (135-214) H 08/29/21 03:55 Creatine Kinase 256 U/L (26-192) H 08/30/21 04:23 Troponin T Gen 5 ng/L 31 ng/L (0-10) H 08/27/21 07:25 C-Reactive Protein 2.0 mg/L (0.0-4.9) 09/02/21 05:00 NT-Pro-B Natriuret Pep 226 pg/mL (0-125) H 08/18/21 05:41 NT-Pro-B Natriuret Pep 242 pg/mL (0-125) H 08/18/21 05:41 Total Protein 5.1 g/dL (6.6-8.7) L 09/02/21 05:00 Albumin 3.2 g/dL (3.5-5.2) L 09/02/21 05:00 Globulin 1.9 g/dL (1.3-4.6) 09/02/21 05:00 Triglycerides 174 mg/dL (0-150) H 08/30/21 04:23 Procalcitonin 0.15 ng/mL (0-0.5) 09/02/21 05:00 TSH 1.07 uIU/mL (0.27-4.20) 08/18/21 05:41 Random Cortisol 10.46 ug/dL (2.47-19.5) 09/02/21 05:00 Urine Color Yellow (Yellow) 08/23/21 03:30 Urine Appearance Sl cloudy (CLEAR) A 08/23/21 03:30 Urine pH 6 (5-7) 08/23/21 03:30 Ur Specific Parrott 1.010 (1.005-1.030) 08/23/21 03:30 Urine Protein 1+ (Negative) H 08/23/21 03:30 Urine Glucose (UA) Norm (Normal) 08/23/21 03:30 Urine Ketones 1+ (Negative) H 08/23/21 03:30 Urine Blood 3+ (Negative) H 08/23/21 03:30 Urine Nitrate Negative (Negative) 08/23/21 03:30 Urine Bilirubin Neg (Negative) 08/23/21 03:30 Urine Urobilinogen Norm mg/dL (Negative) 08/23/21 03:30 Ur Leukocyte Esterase 1+ (Negative) H 08/23/21 03:30 Urine RBC Too numerous to cnt /hpf (0-2) H 08/23/21 03:30 Urine WBC >100 /hpf (0-5) H 08/23/21 03:30 Ur Squamous Epith Cells 0-4 /hpf (0-5) H 08/23/21 03:30 Amorphous Sediment Not Reportable 08/23/21 03:30 Urine Bacteria 2+ /hpf (NONE) H 08/23/21 03:30 Fluid Source 08/29/21 11:00 Fluid Color Cancelled 08/29/21 11:00 Fluid Appearance Cancelled 08/29/21 11:00 Fluid WBC Cancelled 08/29/21 11:00 Fluid RBC Cancelled 08/29/21 11:00 Fluid Tot Cell Count Cancelled 08/29/21 11:00 Fld Polynuclear WBCs # Cancelled 08/29/21 11:00 Fld Polynuclear WBCs % Cancelled 08/29/21 11:00 Fl Mononucl WBCs #(Auto) Cancelled 08/29/21 11:00 Fl Mononuclear % Auto Cancelled 08/29/21 11:00 Bronch Specimen Source L. lower lobe 08/29/21 11:00 Bronchial Fluid Color Colorless 08/29/21 11:00 Bronchial Fluid Appearance Hazy (CLEAR) 08/29/21 11:00 Bronchial Fluid WBC 400 /uL 08/29/21 11:00 Bronchial Fluid RBC 350 10^3/uL 08/29/21 11:00 Bronch Cells Counted 200 08/29/21 11:00 Bronchial Neutrophils 68.00 % (0.9-2.3) H 08/29/21 11:00 Bronchial Lymphocytes 11.00 % (10.71-12.91) 08/29/21 11:00 Bronchial Eosinophils 3.00 % (0.13-0.25) H 08/29/21 11:00 Bronchial Macrophages 18.00 % (83.6-86.8) L 08/29/21 11:00 Bronchial Diff Comment Yes 08/29/21 11:00 Vancomycin Trough 23.4 ug/mL (10-15) H 08/31/21 03:32 Pneumocystis Source 08/29/21 11:00 Pneumocystis DNA (PCR) No dna detected copies/mL 08/29/21 11:00 Pneumocyst jiroveci PCR Not detected 08/29/21 11:00 Micro: Microbiology 09/02/21 11:18 Blood Culture - Preliminary Blood SPECIMEN COLLECTED 09/02/21 11:16 Blood Culture - Preliminary Blood SPECIMEN COLLECTED 08/29/21 11:00 Fungal Smear - Preliminary Sputum - Endotracheal Wash A&P Assessment and plan (1) Acute respiratory failure with hypoxia: Status: Acute (2) COVID-19: Status: Acute (3) HTN (hypertension): Status: Acute (4) Hypothyroidism: Status: Acute (5) Acute respiratory distress syndrome (ARDS) due to 2019 novel coronavirus: Status: Acute (6) Anxiety: Status: Acute (7) Pulmonary embolism associated with COVID-19: Status: Acute (8) Goals of care, counseling/discussion: Status: Acute Plan #Acute hypoxic respiratory failure secondary to ARDS due to COVID-19 pneumonia/PE #Pulmonary embolism, #Hypertension #Hypothyroidism -Intubated, sedated with fentanyl, Versed, propofol , Paralyzed-completed 4 proning sessions -ABG 7.4 3//105/25 on on CMV 400/60%/8-FiO2 came down to 40% after fourth proning session -Chest x-ray showed improving infiltrates yesterday but no significant change today -Completed 5-day course of remdesivir, dexamethasone, 1 dose of Tocilizumab, and received baricitinib few doses Discontinued in view of discontinued in view of possible secondary infection - CTA 08/18/2021 was negative for pulmonary embolism but secondary to markedly elevated dimer on full dose anticoagulation with Lovenox later switched to Eliquis 5 mg twice daily--due to worsening FiO2 requirements CTA was repeated 08/28/2021 which showed multiple small pulmonary emboli in first order to segmental branches of right pulmonary artery and worsening bilateral pneumonia; -Eliquis switched to Heparin drip -Performed bronchoscopy post intubation and BAL fluid was neutrophil predominant, --DC Bactrim as patient BAL negative for PCP PCR; Sputum 08/29/2021 growing yeast- Patrica albicans-most likely commensal -Initially discontinued vancomycin yesterday as MRSA nares negative, however patient has significant leukocytosis, requiring pressors, and fever spikes-re started vancomycin; already covered for gram-negative's with Primaxin, and patient also receiving fluconazole and levofloxacin -Increasing pressor requirement may be secondary to sedation-patient received 1 dose of Solu-Medrol and albumin as well -On prednisone 40 mg daily - Echocardiogram demonstrated preserved EF, mild pulmonary hypertension -Currently on Lasix 40 mg daily-monitor input output/electrolytes/renal functions and try to keep net negative -No bowel movement yet-Patient received lactulose; she is already on senna docusate for bowel regimen -DVT prophylaxis heparin drip -GI prophylaxis: PPI -Start tube feeding at 30 cc while supine -Full code -Family updated With worsening leukocytosis, fever spikes, pressor requirements-sent for pancultures and added vancomycin to imipenem and Levaquin. Plan is to taper down sedation and do awakening trial tomorrow Patient conveyed to hospitalist, RN, RT taking care of the patient Attestations Medical Necessity Statement*: Acute hypoxic respiratory failure secondary to ARDS due to COVID-19 pneumonia/pulmonary embolism/possible PCP pneumonia requiring mechanical ventilation and close monitoring in ICU Time Spent in Patient Care: Greater than 35 minutes (>than 50% of time spent in counselling and/or direct pt care on unit) . Critical Care Time: The high probability of a clinically significant, sudden or life threatening deterioration of the patient's [respiratory, infectious system(s) required my full and direct attention, intervention and personal management. The critical care time is as shown. This time is in addition to time spent performing any reported procedures but includes the following: [x] Data and vital sign review and interpretation [x] Patient assessment, examination and intervention [x] Documentation [x] Medication orders and management Critical Care Time (min): 51 Coding Level of Care Code Established Pt Acute Allied Health Professional for Chg Fwd Patient Type Established History Comprehensive Exam Comprehensive Medical Decision Making High Complexity Diagnoses Acute respiratory failure with hypoxia J96.01 COVID-19 U07.1 HTN (hypertension) I10 Hypothyroidism E03.9 Acute respiratory distress syndrome (ARDS) due to 2019 novel coronavirus U07.1; J80 Anxiety F41.9 Pulmonary embolism associated with COVID-19 U07.1; I26.99 Goals of care, counseling/discussion Z71.89 Time Spent (min) 51
[2021-09-02 23:26] LABS: Partial Thromboplastin Time 34.2 SECONDS (23.9-36.7)
[2021-09-02] MEDS: dexmedeTOMIDine 0.9 % NaCL 400 MCG/100 ML PREMIX 15.52 MCG IV (23:26)
[2021-09-02] MEDS: vancomycin 1,500 MG/300 ML PIGGYBACK 200 MG IV (23:54)
[2021-09-03] VITALS (116 sets, daily range): BP systolic 87–145; BP diastolic 46–80; PULSE 64–90; RESP 18–30; TEMP 36–38.4; O2SAT 88–100; BMI 35.5
[2021-09-03] MEDS: ipratropium 0.5 mg/2.5 mL Neb INHALATION ×6 (00:25→20:12)
[2021-09-03] MEDS: levalbuterol 0.63 mg/3 mL Neb INHALATION ×6 (00:25→20:14)
--- NOTE | 2021-09-03 01:23 | PC.NURSE ---
Physician Communication Patient's ptt within normal range and on therapeutic lovenox for VTE prophylaxis. Orders active for Q6 ptt labs. Dr. Talamantes contacted and order received to cancel ptt Q6 orders.
[2021-09-03] MEDS: acetaminophen 325 mg Tablet 650 MG PO (02:26)
[2021-09-03] MEDS: dexmedeTOMIDine 0.9 % NaCL 400 MCG/100 ML PREMIX 18.11 MCG IV ×3 (03:47→18:32)
[2021-09-03 04:18] LABS: Hemoglobin 6.6 g/dL (11.5-15.3); Mean Corpuscular Volume 93.6 fl (81-99); Mean Platelet Volume 10.7 fL (7.4-10.4); Platelet Count 171 10^3/cmm (130-400); Red Cell Distribution Width 15.2 % (12.1-15.1)
[2021-09-03 04:24] LABS: D Dimer 1.01 ug/mIFEU (0-0.59)
--- NOTE | 2021-09-03 04:25 | PC.NURSE ---
Fever Patient temperature remaining above 100F axillary despite PRN tylenol administrations per SEP and ice packs. Dr. Talamantes notified and verbal order received for 1000 mg tylenol IV once. To monitor temp.
[2021-09-03 04:27] LABS: Alanine Aminotransferase 171 U/L (0-33); Alkaline Phosphatase 76 IU/L (35-105); Anion Gap 14.5 (5-19); Aspartate Amino Transferase 217 U/L (0-32); Blood Urea Nitrogen 32 mg/dL (6-20); Calcium 7.2 mg/dL (8.5-10.5); Carbon Dioxide 21 mmol/L (22-29); Chloride 99 mmol/L (98-107); Globulin 1.6 g/dL (1.3-4.6); Glomerular Filtration Rate 64.1 mL/min (90-130); Glucose 196 mg/dL (65-115); Osmolality Calculated 280 mOsm/kg (285-295); Potassium 5.5 mmol/L (3.5-5.1); Sodium 129 mmol/L (136-145); Total Bilirubin 0.4 mg/dL (0.15-1.2); Total Protein 4.6 g/dL (6.6-8.7)
[2021-09-03] MEDS: acetaminophen 1,000 MG/100 ML PIGGYBACK 400 MG IV (04:33)
[2021-09-03 04:34] LABS: Hematocrit 20.6 % (37.0-47.0)
--- NOTE | 2021-09-03 04:35 | PC.NURSE ---
Physician Communication Patient's WBC and HCT came back critical at [address] Talamantes notified; verbal orders received for a type/crossmatch and to infuse 1 unit of PRBC now. Dr. Talamantes also notified of increased AST and ALT levels. FAmily contacted for informed consent for blood transfusion: unable to contact , daughter Belinda Chapman agreed to consent. Consent witnessed by this RN in addition to SUNNY Douglas. Consent placed in chart. Orders carried out as indicated.
[2021-09-03 04:46] LABS: C Reactive Protein 33.6 mg/L (0.0-4.9)
[2021-09-03 04:50] LABS: Slide Review Slide Review Perform
[2021-09-03 04:51] LABS: Total Cells Counted 100 (0-100)
[2021-09-03 04:53] LABS: Absolute Eosinophils 0.5 10^3/cmm (0.0-0.7); Absolute Neutrophil 44.1 10^3/cmm (1.4-6.5); Absolute Segmented Neutrophil 33.1 10/cmm (1.6-7.1); Corrected White Blood Count 54.7 10^3/cmm (4.8-10.8); Eosinophils 1 %; Lymphocytes 8 %; Lymphocytes Absolute 5.2 10^3/cmm (1.2-3.4); Monocytes Absolute 1.2 10^3/cmm (0.1-0.6); Platelet Estimate Normal (Normal); Polychromasia 1+; Segmented Neutrophils 57 %
[2021-09-03] MEDS: levoFLOXacin 750 mg Tablet PO (05:40)
[2021-09-03 05:43] LABS: ABG PCO2 31.6 mmHg (35-45); ABG PH Result 7.46 (7.35-7.45); Arterial Blood Gas Hematocrit 25.4 % (37-47); Base Excess ABG -0.9 mmol/L (-2.0-2.0); Blood Gas Allen Test Pos; Blood Gas Operator Identificat JB; Blood Gas Sample Site Brachial, right; Blood Gas Sample Type Arterial; HCO3 ABG 22.6 mmol/L (22-26); Oxygen Device VENT
--- NOTE | 2021-09-03 06:00 | XR_ITS ---
WS: [id number] XR chest 1V portable [id number] REASON FOR EXAM: covid FINDINGS: Endotracheal tube, nasogastric tube, and right jugular central venous line remain in proper position Bilateral diffuse lung opacities demonstrate no significant interval change compared to 09/02/2021. No new findings or other interval change. XR/XR chest 1V portable [id number] IMPRESSION: Stable abnormal chest.
[2021-09-03] MEDS: sodium chloride 0.9% (100 ml) 100 ML (06:30)
[2021-09-03] MEDS: propofol 1,000 MG/100 ML INJ 12.42 MG IV ×2 (06:51→16:25)
[2021-09-03 08:01] LABS: Reticulocyte % 4.9 % (0.5-2.0)
[2021-09-03] MEDS: budesonide 0.5 mg/2 mL Neb INHALATION ×2 (08:09→20:15)
[2021-09-03] MEDS: ascorbic acid 500 mg Tablet PO (09:02)
[2021-09-03] MEDS: zinc gluconate 50 mg Tablet PO (09:02)
[2021-09-03] MEDS: montelukast sodium 10 mg Tablet PO (09:02)
[2021-09-03] MEDS: sennosides-docusate Tablet 1 TAB PO (09:02)
[2021-09-03] MEDS: topiramate 100 mg Tablet PO (09:02)
[2021-09-03] MEDS: pantoprazole DR 40 mg Tablet PO (09:03)
[2021-09-03] MEDS: ferrous gluconate 324 mg Tablet PO ×2 (09:03→18:59)
[2021-09-03] MEDS: bisacodyl 5 mg Tablet 10 MG PO (09:03)
[2021-09-03] MEDS: aspirin 81 mg EC Tablet PO (09:03)
[2021-09-03] MEDS: predniSONE 20 mg Tablet 40 MG PO (09:03)
[2021-09-03] MEDS: levothyroxine 25 mcg Tablet PO (09:03)
--- NOTE | 2021-09-03 09:34 | CT_ITS ---
WS: [id number] CT chest abd pel wo con REASON FOR EXAM: covid, septic shock, colitis IV CONTRAST ADMINISTERED: Noncontrast TOTAL EXAM DLP: See records. All CT scans at [facility] use at least one of these dose optimization techniques: automat ed exposure control; mA and/or kV adjustment per patient size (includes targeted exams where dose is matched to clinical indication); or iterative reconstruction. FINDINGS: CHEST: No mediastinal or hilar adenopathy or mass. Compared to the chest CT scan of 08/28/2021 there has been partial resolution of the diffuse groundglas s opacities in both lungs however significant abnormality remains. No interval development of pleural fluid. No other significant interval change compared to the previous CT scan of the chest. No new findings. ABDOMEN: No free air. Normal unenhanced liver and spleen. Nasogastric tube properly positioned and the body of the stomach. Unremarkable pancreas. Normal-appearing gallbladder. Adrenal glands are unremarkable. Cyst in the right kidney. No renal calculi. Mild dilatation of the r enal pelves which appears to be due to mild ureteral pelvic junction stenosis. No obstructive uropath y. No abdominal mass or adenopathy. No free fluid or focal fluid collection. Normal appendix not identified however no inflammatory changes in the right lower quadrant. No inflammatory changes related to the left colon. No other bowel abnormality. PELVIS: No mass. No focal fluid collection or free fluid. Gomez catheter within the bladder. Degenerative changes in the lumbar thoracic spine. No significant focal bone abnormality in the thora cic spine, lumbar spine, or pelvis. CT/CT chest abd pel wo con IMPRESSION: There is been some clearing of the diffuse lung opacities compared to the previ ous CT scan however significant abnormality remains. Chest otherwise unchanged. No acute abnormality identified in the abdomen or pelvis.
[2021-09-03 10:03] LABS: Procalcitonin 0.38 ng/mL (0-0.5)
[2021-09-03] MEDS: insulin regular-human 10 UNIT in SYRINGE 1 EACH IVP (10:56)
[2021-09-03] MEDS: pantoprazole 40 mg SDV IVP (10:57)
[2021-09-03 11:40] LABS: Fibrinogen 286 mg/dL (174-498); INR 1.23 (0.8-1.2); Partial Thromboplastin Time 34.6 SECONDS (23.9-36.7)
[2021-09-03 11:43] LABS: D Dimer 0.83 ug/mIFEU (0-0.59)
[2021-09-03] MEDS: vancomycin 1,500 MG/300 ML PIGGYBACK 200 MG IV ×2 (13:25→23:45)
[2021-09-03] MEDS: sodium chloride 0.9% (100 ml) 100 ML 50 ML (13:36)
[2021-09-03] MEDS: albumin 12.5 GM/50 ML VIAL IV (15:15)
[2021-09-03] MEDS: FUROsemide 10 mg/mL SDV 2mL 20 MG IVP (15:16)
[2021-09-03 16:32] LABS: Bacillus cereus group Not Detected (NOT DETECT); Bacillus subtillis group Not Detected (NOT DETECT); Corynebacterium Not Detected (NOT DETECT); Cutibacterium acnes (P.acnes) Not Detected (NOT DETECT); Enterococcus Not Detected (NOT DETECT); Enterococcus faecalis Not Detected (NOT DETECT); Enterococcus faecium Not Detected (NOT DETECT); Lactobacillus species Not Detected (NOT DETECT); Listeria Not Detected (NOT DETECT); Listeria monocytogenes Not Detected (NOT DETECT); Micrococcus Not Detected (NOT DETECT); Pan Candida Not Detected (NOT DETECT); Pan Gram-Negative Not Detected (NOT DETECT); Staphylococcus epidermidis Not Detected (NOT DETECT); Staphylococcus lugdunensis Not Detected (NOT DETECT); Staphylococcus species Detected (NOT DETECT); Streptococcus agalactiae Not Detected (NOT DETECT); Streptococcus anginosus group Not Detected (NOT DETECT); Streptococcus pneumoniae Not Detected (NOT DETECT); Streptococcus pyogenes Not Detected (NOT DETECT); Streptococcus species Not Detected (NOT DETECT); mecA Not Detected (NOT DETECT); mecC Not Detected (NOT DETECT)
[2021-09-03 17:14] LABS: Basophils # 0.2 10^3/uL (0.0-0.1); Basophils % 0.4 %; Eosinophils # 0.2 10^3/uL (0.0-0.8); Eosinophils % 0.4 %; Hematocrit 25.1 % (37.0-47.0); Hemoglobin 8.6 g/dL (11.5-15.3); Lymphocytes # 2.5 10^3/uL (0.8-4.8); Lymphocytes % 5.3 %; Mean Corpuscular HGB Conc 34.3 g/dL (30.0-36.0); Mean Corpuscular Hemoglobin 30.5 pg (28.0-34.0); Monocytes # 2.4 10^3/uL (0.2-0.9); Neutrophils # 36.48 10^3/uL (1.8-7.7); Neutrophils % 77.1 %; Nucleated Red Blood Cells # 1.1 /100WBC; Nucleated Red Blood Cells % 2.3 %; Platelet Count 132 10^3/cmm (130-400); Red Blood Count 2.82 10^6/uL (4.1-5.3); Red Cell Distribution Width 14.6 % (12.1-15.1)
[2021-09-03 17:23] LABS: Alanine Aminotransferase 147 U/L (0-33); Albumin Level 3.1 g/dL (3.5-5.2); Alkaline Phosphatase 61 IU/L (35-105); Anion Gap 12.9 (5-19); Aspartate Amino Transferase 148 U/L (0-32); Blood Urea Nitrogen 25 mg/dL (6-20); Calcium 7.3 mg/dL (8.5-10.5); Carbon Dioxide 23 mmol/L (22-29); Chloride 99 mmol/L (98-107); Globulin 1.5 g/dL (1.3-4.6); Glomerular Filtration Rate 102.3 mL/min (90-130); Glucose 182 mg/dL (65-115); Osmolality Calculated 279 mOsm/kg (285-295); Potassium 4.9 mmol/L (3.5-5.1); Sodium 130 mmol/L (136-145); Total Bilirubin 0.5 mg/dL (0.15-1.2); Total Protein 4.6 g/dL (6.6-8.7)
[2021-09-03] MEDS: fluconazole premix 200 MG/100 ML PREMIX 100 MG IV (17:50)
--- NOTE | 2021-09-03 17:59 | P.PN_ITS ---
Subjective Subjective: Seen multiple times during the day at bedside. Overnight patient has remained hemodynamically stable. She is down to 8 mics of Levophed. Today morning's ABG showed a pH of 7.4 with a PO2 of 115 on a ventilator setting of tidal volume of 400, FiO2 50% with a PEEP of 8. Documented urine output of 1200. Morning labs showed a white count of 58,000 with a hemoglobin of 6.6. During the day patient received 2 units of blood transfusion. Levophed was turned down. Patient remained at saturation of more than 90% with FiO2 of 45% during the day. Vitals/I&O/Wt Last Vital Signs Temp 97.2 F L 09/03/21 13:45 Pulse 70 09/03/21 15:58 Resp 25 H 09/03/21 15:55 BP 102/53 09/03/21 13:45 Pulse Ox 92 09/03/21 15:55 09/03/21 09/03/21 09/03/21 06:59 14:59 22:59 Intake Total 1266.217 / 3058.718 950 / 950 100 / 1050 Output Total 950 / 1200 Balance 316.217 / 1858.718 950 / 950 100 / 1050 Weight last 48 hrs Weight 99.836 kg Weight 94.03 kg Physical Exam Narrative: General: Intubated sedated, paralyzed, generalized anasarca present today HEENT: PERRLA, pupils bilaterally equal and reactive Chest: Bronchial type breath sounds bilaterally, coarse crackles present bilaterally all over the lung pereira equal good air entry bilaterally CVS: S1-S2 regular, no murmurs, no tachycardia, no gallops, no rubs Abdomen: Soft, nontender, no organomegaly, bowel sounds present Neuro: Intubated sedated Urinary Catheter Management: Gomez: Cath Placed During This Visit: yes Reason for Continuing Indwelling Catheter: Accurate Measurement of Urinary Output in Critically Ill Patients Urinary Catheter Date of Insertion: 08/29/21 Urinary Catheter Time of Insertion: 01:18 Data : 09/03/21 03:40 09/03/21 16:54 Micro: Microbiology 09/02/21 11:16 Blood Culture - Preliminary Blood Coagulase negativ staphylococc 09/03/21 00:30 Gram Stain - Final Sputum - Endotracheal Tube Aspirate 09/02/21 11:18 Blood Culture - Preliminary Blood NEGATIVE TO DATE A&P Assessment and plan (1) Acute respiratory distress syndrome (ARDS) due to 2019 novel coronavirus: Status: Acute (2) Septic shock: Status: Acute (3) COVID-19: Status: Acute (4) Pulmonary embolism associated with COVID-19: Status: Acute (5) HTN (hypertension): Goal blood pressure less than 140/90 mmHg. Continue home dose of losartan. Status: Acute (6) Hypothyroidism: Continue with home dose of levothyroxine. TSH appreciated. Status: Acute (7) Anxiety: Continue home dose of topiramate, trazodone. Status: Acute Plan ARDS: Secondary to COVID-19 pneumonia, most likely superimposed bacterial pneumonia, pulmonary embolism: Severe disease. Intubated 08/29. Undergoing proning sessions.. Post 3 proning session. Plan to prone later in the day again. Oxygen supplementation keeping saturation over 88%. Change ventilator settings accordingly. Has finished dexamethasone 6 mg IV daily course. Continue prednisone 40 mg twice daily for now. Finished remdesivir course. Post Actemra on 08/19. Vitamin C, zinc. Ipratropium, Xopenex every 4 hour, budesonide twice daily We will monitor inflammatory markers including CRP, D-dimer every 48 hours. D-dimer has trended down. D-dimer continues to trend down. Lovenox 1 mg/kg body weight every 12 hourly held for now given acute anemia High suspicion of bacterial pneumonia. For now continue with imipenem and Levaquin. MRSA negative, PCP negative. Continue with fluconazole for overall 7-day course of appropriate antifungals for Patrica albicans in bronchial lavage specimen. Urine Legionella, bacterial antigen, MRSA negative. Continue with imipenem. Restart vancomycin. Levaquin stopped because of possible hemolysis. Patient is already finished 4 to 5-day course. Given hypoxia will try to keep patient as negative as possible. Echocardiogram shows an EF of 70% without any regional motion abnormality, normal diastolic dysfunction, RVSP of 45. Repeat IV Lasix 40 mg. Strict input output charting. Septic shock: Keep mean artery pressure over 65. Wean Levophed accordingly. Repeat urinalysis, urine culture, sputum culture. Blood cultures sent on 09/02 1 out of 4 bottles positive for coag negative staph. Cannot rule out contamination. Antibiotics as above. Repeat blood cultures in a.m. Anemia: With elevated LFTs, hyperkalemia cannot rule out autoimmune hemolytic anemia. Multiple medication can cause the same. Patient is on Levaquin, Precedex, imipenem, propofol which can all cause. Stop Levaquin. Check DIC panel, haptoglobin, reticulocyte count. 2 units of blood transfusion. Platelet count stable. For now hold off on Lovenox. No sign of overt bleeding. Patient does not have any bowel movement. Switch steroids to methylprednisolone 40 mg IV daily possible autoimmune hemolytic anemia. Start on tube feeds with Pulmocare at 10 cc/h, increase 10 cc every 4 hours with goal rate of 50. Stop tube feeds 1 hour prior to proning. Free water flushes 100 cc every 6 hours. Aggressive bowel regimen. Full code. Dose Lovenox will help with DVT prophylaxis. Protonix for PUD prophylaxis. Appreciate collection systems administrator recommendation. Patient's daughter Ms. Hoyt updated over the phone at [phone]. Care also discussed with patient's over the phone. All the questions were answered. Isolation to end on 21 days post positive test. 08/30 Patient's care did discuss in detail with collection systems administrator Dr. Moon at [facility]. He states currently they do not have any ECMO circuits available in their hospital and patient still has room to go up on FiO2 and PEEP if needed. He suggests few more proning sessions. He suggests if patient does not improve after a few more proning session to call back to see if they have any bed available. Plan for day: 2 unit of blood transfusion. Repeat CBC and CMP in evening. Wean Levophed. Stop Levaquin. Add vancomycin. Repeat blood cultures in a.m. IV Lasix 40 mg. Strict input output charting. Plan for sedation vacation in a.m. Family including 2 daughters and updated in detail. All the questions were answered. Attestations Medical Necessity Statement*: Requires further hospitalization for management of septic shock, ARDS, COVID-19, pulmonary embolism, possible autoimmune hemolytic anemia requiring blood transfusion while patient is ventilated Critical Care Time: The high probability of a clinically significant, sudden or life threatening deterioration of the patient's [cardiac, renal, pulmonary, hematological, goals of care discussion, system(s) required my full and direct attention, intervention and personal management. The critical care time is as shown. This time is in addition to time spent performing any reported procedures but includes the following: [x] Data and vital sign review and interpretation [x] Patient assessment, examination and intervention [x] Documentation [x] Medication orders and management Critical Care Time (min): 90 Coding Level of Care Code Acute Merchandise Pickup/Receiving Associate for [facility]g Fwd History Comprehensive Exam Comprehensive Medical Decision Making High Complexity Diagnoses Acute respiratory distress syndrome (ARDS) due to 2019 novel coronavirus U07.1; J80 Septic shock A41.9; R65.21 COVID-19 U07.1 Pulmonary embolism associated with COVID-19 U07.1; I26.99 HTN (hypertension) I10 Hypothyroidism E03.9 Anxiety F41.9
[2021-09-03 18:18] LABS: Slide Review Slide Review Perform; White Blood Count 47.3 10^3/uL (4.0-10.0)
[2021-09-03] MEDS: quetiapine 25 mg Tablet PO (18:32)
--- NOTE | 2021-09-03 18:49 | PC.NURSE ---
Enema given with no results.
--- NOTE | 2021-09-03 20:47 | PC.NURSE ---
Temperature Patient's axillary temperature 100F. Fan turned on patient and icepacks placed on groin/under arms.
[2021-09-03 21:28] LABS: Fungitell 1-3-B Glucan Assay <31 pg/mL; Interpretation NEGATIVE
[2021-09-03 23:14] LABS: Vancomycin Trough 16.9 ug/mL (10-15)
[2021-09-04] VITALS (64 sets, daily range): BP systolic 90–117; BP diastolic 53–70; PULSE 61–75; RESP 25–33; TEMP 36.5–37; O2SAT 89–99; BMI 38.2
[2021-09-04] MEDS: levalbuterol 0.63 mg/3 mL Neb INHALATION ×7 (00:04→23:06)
[2021-09-04] MEDS: ipratropium 0.5 mg/2.5 mL Neb INHALATION ×7 (00:04→23:06)
[2021-09-04] MEDS: dexmedeTOMIDine 0.9 % NaCL 400 MCG/100 ML PREMIX 18.11 MCG IV ×3 (02:14→17:08)
[2021-09-04] MEDS: propofol 1,000 MG/100 ML INJ 12.42 MG IV ×3 (04:35→21:16)
[2021-09-04 05:18] LABS: Basophils # 0.1 10^3/uL (0.0-0.1); Basophils % 0.3 %; Eosinophils # 0.3 10^3/uL (0.0-0.8); Eosinophils % 0.8 %; Hematocrit 24.3 % (37.0-47.0); Hemoglobin 7.9 g/dL (11.5-15.3); Lymphocytes # 2.6 10^3/uL (0.8-4.8); Lymphocytes % 6.2 %; Mean Corpuscular HGB Conc 32.5 g/dL (30.0-36.0); Mean Corpuscular Hemoglobin 30.3 pg (28.0-34.0); Mean Corpuscular Volume 93.1 fl (81-99); Mean Platelet Volume 10.3 fL (7.4-10.4); Monocytes % 4.9 %; Neutrophils # 31.16 10^3/uL (1.8-7.7); Neutrophils % 75.6 %; Nucleated Red Blood Cells # 0.7 /100WBC; Nucleated Red Blood Cells % 1.7 %; Platelet Count 134 10^3/cmm (130-400); Red Blood Count 2.61 10^6/uL (4.1-5.3); Red Cell Distribution Width 15.3 % (12.1-15.1)
[2021-09-04 05:56] LABS: Alanine Aminotransferase 138 U/L (0-33); Alkaline Phosphatase 61 IU/L (35-105); Anion Gap 11.9 (5-19); Aspartate Amino Transferase 114 U/L (0-32); Blood Urea Nitrogen 25 mg/dL (6-20); Calcium 7.4 mg/dL (8.5-10.5); Carbon Dioxide 23 mmol/L (22-29); Chloride 104 mmol/L (98-107); Globulin 1.5 g/dL (1.3-4.6); Glomerular Filtration Rate 126.3 mL/min (90-130); Glucose 130 mg/dL (65-115); Osmolality Calculated 286 mOsm/kg (285-295); Potassium 3.9 mmol/L (3.5-5.1); Sodium 135 mmol/L (136-145); Total Bilirubin 0.5 mg/dL (0.15-1.2); Total Protein 4.5 g/dL (6.6-8.7)
--- NOTE | 2021-09-04 06:00 | XRR_ITS ---
PROCEDURE INFORMATION: Exam: XR Chest Exam date and time: 09/04/2021 6:00 AM Age: 61 years old Clinical indication: Shortness of breath; Patient HX: F/u covid pneumonia. Intubated. TECHNIQUE: Imaging protocol: XR of the chest. Views: 1 view. COMPARISON: CT chest abd pel wo con 09/03/2021 10:07 AM FINDINGS: Tubes, catheters and devices: Endotracheal tube is in satisfactory position. Right IJ approach central line is in satisfactory position, with distal tip in the RA. Feeding tube is in satisfactory position. Lungs: Low lung volumes. There is redistribution and indistinctness of the pulmonary vasculature, in association with haziness of the lungs and small left pleural effusion, which in the setting of cardiomegaly is consistent with pulmonary edema. Pneumonia should be excluded clinically. No pneumothorax. Pleural spaces: See Lungs finding. Heart/Mediastinum: Stable cardiomediastinal silhouette. Bones/joints: Degenerative changes of the spine seen. XR/XR chest 1V portable [id number] IMPRESSION: Imaging findings of pulmonary edema with small left pleural effusion. Pneumonia should be excluded clinically.
[2021-09-04 06:05] LABS: Slide Review Slide Review Perform
[2021-09-04 06:07] LABS: White Blood Count 41.2 10^3/uL (4.0-10.0)
--- NOTE | 2021-09-04 06:30 | PC.NURSE ---
Tube Feeding Paused Gastric residual at 0400 was 162 ml. Tube feeding was previously running at 10 ml/hr with a total of 71 ml feed administered throughout entire shift. Dr. Talamantes notified of accumulating residuals and order received to pause tube feeds until further notice. Tube feeding paused as indicated.
--- NOTE | 2021-09-04 07:14 | PC.NURSE ---
Family Update Daughter, Belinda Chapman, called and received update on patient status. Daughter verbalized understanding and stated no further questions.
--- NOTE | 2021-09-04 07:42 | PC.SOCIAL ---
IMM Update pg 2 of IMM not updated. Patient remains intubated @ this time.
[2021-09-04] MEDS: budesonide 0.5 mg/2 mL Neb INHALATION ×2 (08:07→20:24)
[2021-09-04] MEDS: bisacodyl 5 mg Tablet 10 MG PO (08:17)
[2021-09-04] MEDS: levothyroxine 25 mcg Tablet PO (08:17)
[2021-09-04] MEDS: sennosides-docusate Tablet 1 TAB PO (08:17)
[2021-09-04] MEDS: ascorbic acid 500 mg Tablet PO (08:17)
[2021-09-04] MEDS: aspirin 81 mg EC Tablet PO (08:17)
[2021-09-04] MEDS: quetiapine 25 mg Tablet PO ×2 (08:17→17:08)
[2021-09-04] MEDS: zinc gluconate 50 mg Tablet PO (08:17)
[2021-09-04] MEDS: pantoprazole 40 mg SDV IVP (08:17)
[2021-09-04] MEDS: FUROsemide 10 mg/mL SDV 4mL 40 MG IVP (08:17)
[2021-09-04] MEDS: montelukast sodium 10 mg Tablet PO (08:17)
[2021-09-04] MEDS: ferrous gluconate 324 mg Tablet PO ×2 (08:17→17:08)
[2021-09-04] MEDS: topiramate 100 mg Tablet PO (08:17)
[2021-09-04] MEDS: magnesium hydroxide 30 mL UDC PO (08:36)
[2021-09-04] MEDS: vancomycin 1,500 MG/300 ML PIGGYBACK 200 MG IV (11:56)
[2021-09-04] MEDS: enoxaparin 100 mg/mL Syringe 90 MG SUBCUT ×2 (11:56→23:04)
--- NOTE | 2021-09-04 13:17 | P.PN_ITS ---
Subjective Subjective: Seen multiple times at bedside today. No acute events overnight. Patient's mean acute pressures have remained over 65. Currently during examination 72. Documented urine output of almost 2 L in last 24 hours. Patient has been off Levophed since yesterday afternoon. Still no bowel movements. Received enema yesterday. Overall received 2 units of blood transfusion yesterday. Currently on 175 of fentanyl, Precedex of 1.2, Versed of 6, propofol 30. On ventilator setting FiO2 45%, PEEP of 8, tidal volume of 420 saturating more than 92%. Medications: Reviewed: Yes Vitals/I&O/Wt Last Vital Signs Temp 98.4 F 09/04/21 12:00 Pulse 72 09/04/21 12:00 Resp 25 H 09/04/21 12:00 BP 104/59 09/04/21 12:00 Pulse Ox 93 09/04/21 12:00 09/03/21 09/04/21 09/04/21 22:59 06:59 14:59 Intake Total 770 / 2128.585 921 / 3049.585 620.336 / 620.336 Output Total 500 / 500 1450 / 1950 Balance 270 / 1628.585 -529 / 1099.585 620.336 / 620.336 Weight last 48 hrs Weight 107.592 kg Weight 99.836 kg Physical Exam Narrative: General: Intubated sedated, paralyzed, generalized anasarca present but improving today. HEENT: PERRLA, pupils bilaterally equal and reactive Chest: Bronchial type breath sounds bilaterally, coarse crackles present bilaterally all over the lung pereira equal good air entry bilaterally CVS: S1-S2 regular, no murmurs, no tachycardia, no gallops, no rubs Abdomen: Soft, nontender, no organomegaly, bowel sounds present Neuro: Intubated sedated Urinary Catheter Management: Gomez: Cath Placed During This Visit: yes Reason for Continuing Indwelling Catheter: Accurate Measurement of Urinary Output in Critically Ill Patients Urinary Catheter Date of Insertion: 08/29/21 Urinary Catheter Time of Insertion: 01:18 Data : 09/04/21 04:20 09/04/21 04:20 Micro: Microbiology 09/04/21 09:16 Blood Culture - Preliminary Blood SPECIMEN COLLECTED 08/30/21 04:23 Blood Culture - Final Blood NO GROWTH AFTER 5 DAYS 08/30/21 04:23 Blood Culture - Final Blood NO GROWTH AFTER 5 DAYS 09/04/21 04:20 Blood Culture - Preliminary Blood SPECIMEN COLLECTED 09/02/21 11:16 Blood Culture - Preliminary Blood Coagulase negativ staphylococc 09/03/21 00:30 Gram Stain - Final Sputum - Endotracheal Tube Aspirate 09/02/21 11:18 Blood Culture - Preliminary Blood NEGATIVE TO DATE A&P Assessment and plan (1) Acute respiratory distress syndrome (ARDS) due to 2019 novel coronavirus: Status: Acute (2) Septic shock: Status: Acute (3) COVID-19: Status: Acute (4) Pulmonary embolism associated with COVID-19: Status: Acute (5) Hemolytic anemia: Status: Acute (6) Ileus: Status: Acute (7) HTN (hypertension): Goal blood pressure less than 140/90 mmHg. Continue home dose of losartan. Status: Acute (8) Hypothyroidism: Continue with home dose of levothyroxine. TSH appreciated. Status: Acute (9) Anxiety: Continue home dose of topiramate, trazodone. Status: Acute (10) Goals of care, counseling/discussion: Status: Acute Plan ARDS: Secondary to COVID-19 pneumonia, most likely superimposed bacterial pneumonia, pulmonary embolism: Severe disease. Intubated 08/29. Undergoing proning sessions.. Post 4 proning session. Oxygen supplementation keeping saturation over 88%. On stable ventilator settings saturating 94%. We will start weaning down on sedation today. Has finished dexamethasone 6 mg IV daily course. Continue Solu-Medrol 30 mg daily for now. Finished remdesivir course. Post Actemra on 08/19. Vitamin C, zinc. Ipratropium, Xopenex every 4 hour, budesonide twice daily We will monitor inflammatory markers including CRP, D-dimer every 48 hours. D-dimer has trended down. D-dimer continues to trend down. Lovenox 1 mg/kg body weight every 12 hourly to be restarted today. High suspicion of bacterial pneumonia. MRSA negative, PCP negative. Continue with fluconazole for overall 7-day course of appropriate antifungals for Patrica albicans in bronchial lavage specimen. Urine Legionella, bacterial antigen, MRSA negative. Blood culture sent from 09/02 1 out of 4 bottles positive for coag negative staph. Repeat blood cultures sent on 09/04. For now continue with vancomycin and imipenem. Depending on the sensitivities and culture results will de-escalate antibiotics. Given hypoxia will try to keep patient as negative as possible. Echocardiogram shows an EF of 70% without any regional motion abnormality, normal diastolic dysfunction, RVSP of 45. Repeat IV Lasix 40 mg. Strict input output charting. Septic shock: Keep mean artery pressure over 65. Wean Levophed accordingly. Repeat urinalysis, urine culture, sputum culture. Blood cultures sent on 09/02 1 out of 4 bottles positive for coag negative staph. Cannot rule out contamination. Antibiotics as above. Repeat blood cultures in a.m. Anemia: With elevated LFTs, hyperkalemia cannot rule out autoimmune hemolytic anemia. Multiple medication can cause the same. Patient is on Levaquin, Precedex, imipenem, propofol which can all cause. Stop Levaquin. Giurgius low, reticulocyte appropriately elevated. Post 2 units of blood transfusion. Platelet count stable. Restart Lovenox today. Repeat CBC in afternoon. Transfuse keeping hemoglobin over 7-7.5. No sign of overt bleeding. Patient does not have any bowel movement. Continue with methylprednisolone 30 mg IV daily possible autoimmune hemolytic anemia. Tube feeds with Pulmocare running at 30 with goal rate of 50. Currently stopped because of excess residual. Bowel regimen with milk of magnesia. If no result enema in afternoon. Full code. Dose Lovenox will help with DVT prophylaxis. Protonix for PUD prophylaxis. Appreciate program review director recommendation. Patient's daughter Ms. Hoyt updated over the phone at [phone]. Care also discussed with patient's over the phone. All the questions were answered. Isolation to end on 21 days post positive test. 08/30 Patient's care did discuss in detail with program review director Dr. Moon at [facility]. He states currently they do not have any ECMO circuits available in their hospital and patient still has room to go up on FiO2 and PEEP if needed. He suggests few more proning sessions. He suggests if patient does not improve after a few more proning session to call back to see if they have any bed available. Plan for day: Weaning of sedation. Repeat hemoglobin in evening. Lasix 40 mg once. Monitoring vitals. Continue with vancomycin and imipenem. Follow-up blood cultures. Milk of magnesia and if no bowel movement enema in afternoon. Family including 2 daughters and updated in detail. All the questions were answered. Discussed that unfortunately going forward patient would need extensive pulmonary and physical rehab once extubated. We discussed that [facility] might be a good option for pulmonary rehab. Family for now is open for option. Case management alerted. Attestations Medical Necessity Statement*: Requires further hospitalization for management of ARDS secondary COVID-19 pneumonia, superimposed bacterial pneumonia, sepsis, autoimmune hemolytic anemia, ileus Critical Care Time: The high probability of a clinically significant, sudden or life threatening deterioration of the patient's [pulmonary, cardiac, heme, renal, GI system(s) required my full and direct attention, intervention and personal management. The critical care time is as shown. 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
[2021-09-04 16:23] LABS: Hematocrit 23.1 % (37.0-47.0); Hemoglobin 7.7 g/dL (11.5-15.3); Mean Corpuscular HGB Conc 33.3 g/dL (30.0-36.0); Mean Corpuscular Hemoglobin 30.6 pg (28.0-34.0); Mean Corpuscular Volume 91.7 fl (81-99); Mean Platelet Volume 10.3 fL (7.4-10.4); Platelet Count 128 10^3/cmm (130-400); Red Blood Count 2.52 10^6/uL (4.1-5.3); Red Cell Distribution Width 15.4 % (12.1-15.1)
[2021-09-04] MEDS: fluconazole premix 200 MG/100 ML PREMIX 100 MG IV (17:08)
[2021-09-04 17:11] LABS: Slide Review Slide Review Perform
[2021-09-04 17:12] LABS: White Blood Count 34.3 10^3/uL (4.0-10.0)
--- NOTE | 2021-09-04 17:12 | PC.NURSE ---
Shift Note Frequent safety and comfort rounds continue. Orders and/or nursing care completed as indicated. Patient monitored for response to intervention and treatment(s). Education provided includes plan of care, plans to wean sedation and milk/molasses enema. Patient's daughters at bedside for updates and education no concerns voiced. The daughters will discuss plan to possible transition care to [facility] next week with the . Will continue to monitor.
[2021-09-04 17:15] LABS: Band Neutrophils Absolute 3.4 10^3/cmm (0.0-1.2); Lymphocytes 4 %; Total Cells Counted 100 (0-100)
[2021-09-04 17:16] LABS: Absolute Eosinophils 0.3 10^3/cmm (0.0-0.7); Absolute Segmented Neutrophil 25.4 10/cmm (1.6-7.1); Eosinophils 1 %; Lymphocytes Absolute 1.4 10^3/cmm (1.2-3.4); Segmented Neutrophils 74 %
[2021-09-04 17:17] LABS: Anisocytosis Trace; Smudge Cells 1+
[2021-09-04 17:18] LABS: Absolute Neutrophil 28.8 10^3/cmm (1.4-6.5); Platelet Estimate Normal (Normal)
[2021-09-05] VITALS (111 sets, daily range): BP systolic 90–165; BP diastolic 52–86; PULSE 64–95; RESP 26–30; TEMP -12.7–38.4; O2SAT 88–99
[2021-09-05] MEDS: vancomycin 1,500 MG/300 ML PIGGYBACK 200 MG IV ×3 (00:05→23:50)
[2021-09-05] MEDS: levalbuterol 0.63 mg/3 mL Neb INHALATION ×6 (03:23→23:06)
[2021-09-05] MEDS: ipratropium 0.5 mg/2.5 mL Neb INHALATION ×6 (03:23→23:06)
[2021-09-05] MEDS: propofol 1,000 MG/100 ML INJ 24.83 MG IV ×4 (04:09→22:00)
[2021-09-05 04:46] LABS: Basophils # 0.1 10^3/uL (0.0-0.1); Basophils % 0.3 %; Eosinophils # 0.4 10^3/uL (0.0-0.8); Eosinophils % 1.5 %; Hematocrit 21.8 % (37.0-47.0); Hemoglobin 7.1 g/dL (11.5-15.3); Lymphocytes # 2.3 10^3/uL (0.8-4.8); Lymphocytes % 9.2 %; Mean Corpuscular HGB Conc 32.6 g/dL (30.0-36.0); Mean Corpuscular Hemoglobin 30.9 pg (28.0-34.0); Mean Corpuscular Volume 94.8 fl (81-99); Mean Platelet Volume 10.3 fL (7.4-10.4); Monocytes # 1.7 10^3/uL (0.2-0.9); Monocytes % 6.6 %; Neutrophils # 17.85 10^3/uL (1.8-7.7); Neutrophils % 70.6 %; Nucleated Red Blood Cells # 0.7 /100WBC; Nucleated Red Blood Cells % 2.8 %; Platelet Count 135 10^3/cmm (130-400); Red Cell Distribution Width 15.5 % (12.1-15.1); White Blood Count 25.3 10^3/uL (4.0-10.0)
[2021-09-05 04:48] LABS: D Dimer 0.78 ug/mIFEU (0-0.59)
[2021-09-05 04:57] LABS: Alanine Aminotransferase 126 U/L (0-33); Albumin Level 2.8 g/dL (3.5-5.2); Alkaline Phosphatase 57 IU/L (35-105); Anion Gap 12.4 (5-19); Aspartate Amino Transferase 90 U/L (0-32); Blood Urea Nitrogen 23 mg/dL (6-20); Calcium 7.3 mg/dL (8.5-10.5); Carbon Dioxide 23 mmol/L (22-29); Chloride 104 mmol/L (98-107); Globulin 1.8 g/dL (1.3-4.6); Glomerular Filtration Rate 163.4 mL/min (90-130); Glucose 117 mg/dL (65-115); Osmolality Calculated 287 mOsm/kg (285-295); Potassium 3.4 mmol/L (3.5-5.1); Sodium 136 mmol/L (136-145); Total Bilirubin 0.5 mg/dL (0.15-1.2); Total Protein 4.6 g/dL (6.6-8.7)
[2021-09-05 05:32] LABS: Slide Review Slide Review Perform
[2021-09-05 05:59] LABS: C Reactive Protein 25.5 mg/L (0.0-4.9)
[2021-09-05] MEDS: budesonide 0.5 mg/2 mL Neb INHALATION ×2 (08:03→19:52)
[2021-09-05] MEDS: pantoprazole 40 mg SDV IVP (08:42)
[2021-09-05] MEDS: bisacodyl 5 mg Tablet 10 MG PO (08:42)
[2021-09-05] MEDS: quetiapine 25 mg Tablet PO ×2 (08:42→17:16)
[2021-09-05] MEDS: ferrous gluconate 324 mg Tablet PO ×2 (08:42→17:16)
[2021-09-05] MEDS: sennosides-docusate Tablet 1 TAB PO (08:42)
[2021-09-05] MEDS: zinc gluconate 50 mg Tablet PO (08:42)
[2021-09-05] MEDS: ascorbic acid 500 mg Tablet PO (08:43)
[2021-09-05] MEDS: aspirin 81 mg EC Tablet PO (08:43)
[2021-09-05] MEDS: levothyroxine 25 mcg Tablet PO (08:43)
[2021-09-05] MEDS: montelukast sodium 10 mg Tablet PO (08:43)
[2021-09-05] MEDS: topiramate 100 mg Tablet PO (08:43)
[2021-09-05] MEDS: FUROsemide 10 mg/mL SDV 4mL 40 MG IVP (13:13)
[2021-09-05] MEDS: enoxaparin 100 mg/mL Syringe 90 MG SUBCUT ×2 (13:14→21:45)
--- NOTE | 2021-09-05 16:46 | P.PN_ITS ---
Subjective Subjective: No acute events overnight. Has remained hemodynamically stable and afebrile. Off pressors. 2500 cc of urine output last 24 hours. Currently on fentanyl, Versed has been stopped, propofol off 50, Precedex of 1. Ventilator setting of PEEP of 6, FiO2 of 40%, tidal volume of 420 saturating 92%. Peak pressures on ventilator 33-34. Medications: Reviewed: Yes Vitals/I&O/Wt Last Vital Signs Temp 99.1 F 09/05/21 07:30 Pulse 73 09/05/21 16:16 Resp 26 H 09/05/21 15:27 BP 125/62 09/05/21 16:16 Pulse Ox 95 09/05/21 16:16 09/05/21 09/05/21 09/05/21 06:59 14:59 22:59 Intake Total 641.450 / 1987.837 728.942 / 728.942 Output Total 350 / 2800 Balance 291.450 / -812.163 728.942 / 728.942 Weight last 48 hrs Weight 106.594 kg Weight 107.592 kg Physical Exam Narrative: General: Intubated sedated, paralyzed, generalized anasarca present but improving today. HEENT: PERRLA, pupils bilaterally equal and reactive Chest: Bronchial type breath sounds bilaterally, coarse crackles present bilaterally all over the lung pereira equal good air entry bilaterally CVS: S1-S2 regular, no murmurs, no tachycardia, no gallops, no rubs Abdomen: Soft, nontender, no organomegaly, bowel sounds present Neuro: Intubated sedated Urinary Catheter Management: Gomez: Cath Placed During This Visit: yes Reason for Continuing Indwelling Catheter: Not indwelling catheter Urinary Catheter Date of Insertion: 08/29/21 Urinary Catheter Time of Insertion: 01:18 Data : 09/05/21 03:39 09/05/21 03:39 Micro: Microbiology 09/02/21 11:16 Blood Culture - Preliminary Blood Coagulase negativ staphylococc 09/03/21 00:30 Gram Stain - Final Sputum - Endotracheal Tube Aspirate Sputum Culture - Final 09/04/21 09:16 Blood Culture - Preliminary Blood NEGATIVE TO DATE 09/02/21 22:00 Urine Culture - Final Urine Catheterized 09/04/21 04:20 Blood Culture - Preliminary Blood NEGATIVE TO DATE A&P Assessment and plan (1) Acute respiratory distress syndrome (ARDS) due to 2019 novel coronavirus: Status: Acute (2) Septic shock: Status: Acute (3) COVID-19: Status: Acute (4) Pulmonary embolism associated with COVID-19: Status: Acute (5) Hemolytic anemia: Status: Acute (6) Ileus: Status: Acute (7) HTN (hypertension): Goal blood pressure less than 140/90 mmHg. Continue home dose of losartan. Status: Acute (8) Hypothyroidism: Continue with home dose of levothyroxine. TSH appreciated. Status: Acute (9) Anxiety: Continue home dose of topiramate, trazodone. Status: Acute (10) Goals of care, counseling/discussion: Status: Acute Plan ARDS: Secondary to COVID-19 pneumonia, most likely superimposed bacterial pneumonia, pulmonary embolism: Severe disease. Intubated 08/29. Undergoing proning sessions.. Post 4 proning session. Oxygen supplementation keeping saturation over 88%. On stable ventilator settings saturating 94%. We will start weaning down on sedation today. Has finished dexamethasone 6 mg IV daily course. Wean Solu-Medrol to 20 mg daily. Finished remdesivir course. Post Actemra on 08/19. Vitamin C, zinc. Ipratropium, Xopenex every 4 hour, budesonide twice daily We will monitor inflammatory markers including CRP, D-dimer every 48 hours. D-dimer has trended down. D-dimer continues to trend down. Lovenox 1 mg/kg body weight every 12 hourly to be restarted today. High suspicion of bacterial pneumonia. MRSA negative, PCP negative. Continue with fluconazole for overall 7-day course of appropriate antifungals for Patrica albicans in bronchial lavage specimen. Last day on 09/08. Urine Legionella, bacterial antigen, MRSA negative. Blood culture sent from 09/02 1 out of 4 bottles positive for coag negative staph. Repeat blood cultures sent on 09/04. For now continue with vancomycin and imipenem. Depending on the sensitivities and culture results will de-escalate antibiotics. Last day of antibiotics currently 09/07 Given hypoxia will try to keep patient as negative as possible. Echocardiogram shows an EF of 70% without any regional motion abnormality, normal diastolic dysfunction, RVSP of 45. Repeat IV Lasix 40 mg. Strict input output charting. Septic shock: Keep mean artery pressure over 65. Repeat urinalysis, urine culture, sputum culture. Blood cultures sent on 09/02 1 out of 4 bottles positive for coag negative staph. Cannot rule out contamination. Antibiotics as above. Repeat blood cultures so far has remained negative. Anemia: With elevated LFTs, hyperkalemia cannot rule out autoimmune hemolytic anemia. Multiple medication can cause the same. Patient is on Levaquin, Precedex, imipenem, propofol which can all cause. Stop Levaquin. Haptoglobin low, reticulocyte appropriately elevated. Overall received 4 unit of blood transfusion. Platelet count stable. Repeat 1 unit of blood transfusion. Continue with full dose Lovenox. Transfuse keeping hemoglobin over 7-7.5. No sign of overt bleeding. Patient does not have any bowel movement. Continue with methylprednisolone 30 mg IV daily possible autoimmune hemolytic anemia. Tube feeds with Pulmocare running at 30 with goal rate of 50. Currently stopped because of excess residual. Bowel regimen with milk of magnesia. If no result enema in afternoon. Full code. Dose Lovenox will help with DVT prophylaxis. Protonix for PUD prophylaxis. Appreciate tunnel drier operator recommendation. Patient's daughter Ms. oHyt updated over the phone at [phone]. Care also discussed with patient's over the phone. All the questions were answered. Isolation to end on 21 days post positive test. 08/30 Patient's care did discuss in detail with tunnel drier operator Dr. Moon at [facility]. He states currently they do not have any ECMO circuits available in their hospital and patient still has room to go up on FiO2 and PEEP if needed. He suggests few more proning sessions. He suggests if patient does not improve after a few more proning session to call back to see if they have any bed available. Plan for day: Continue to wean sedation. IV Lasix 40 mg. Repeat CBC in evening. Monitor blood transfusion. Continue to follow blood cultures. Milk of magnesia. Last dose of fluconazole on 09/08. Last dose of antibiotics on 09/07. Wean methylprednisone to 20 mg daily. Had a long family discussion with and both daughters at bedside. We discussed that we are currently trying to wean off sedation and plan within next 2 days is to try to wake patient up appropriately to plan for extubation. We discussed that patient going forward would need extensive physical and pulmonary rehab. We discussed if patient is not able to be extubated in 4 or 5 days we might have to think about PEG tube and trach. Discussed right now we are not thinking of tracheostomy and PEG tube placement. Plan for now is to wean sedation and hope of extubation within next 24 to 48 hours. Discussed going forward plan would be for patient to transfer to SNF versus [facility] for [facility] rehabitation. Discussed [facility] would [facility] a better option as she would be able to get pulmonary rehab over there as well. Family is agreeable and understandable. All the questions were answered. Attestations Medical Necessity Statement*: Requires further hospitalization for management of ARDS secondary COVID-19 pneumonia, superimposed bacterial infection, anemia secondary to hemolysis while patient is undergoing sedation vacation and plan for extubation within next 24 to 48 hours. Critical Care Time: The high probability of a clinically significant, sudden or life threatening deterioration of the patient's [pulmonary, cardiac, renal, heme, goals of care discussion system(s) required my full and direct attention, intervention and personal management. The critical care time is as shown. This time is in addition to time spent performing any reported procedures but includes the following: [x] Data and vital sign review and interpretation [x] Patient assessment, examination and intervention [x] Documentation [x] Medication orders and management Critical Care Time (min): 90 Coding Level of Care Code Acute Market Research Associate for caroline [facility] Diagnoses Acute respiratory distress syndrome (ARDS) due to 2019 novel coronavirus U07.1; J80 Septic shock A41.9; R65.21 COVID-19 U07.1 Pulmonary embolism associated with COVID-19 U07.1; I26.99 Hemolytic anemia D58.9 Ileus K56.7 HTN (hypertension) I10 Hypothyroidism E03.9 Anxiety F41.9 Goals of care, counseling/discussion Z71.89
[2021-09-05] MEDS: sodium chloride 0.9% (100 ml) 100 ML (17:16)
[2021-09-05] MEDS: propofol 1,000 MG/100 ML INJ 21.73 MG IV (17:16)
[2021-09-05] MEDS: fluconazole premix 200 MG/100 ML PREMIX 100 MG IV (17:16)
[2021-09-05 17:35] LABS: Hematocrit 22.2 % (37.0-47.0); Hemoglobin 7.3 g/dL (11.5-15.3); Mean Corpuscular HGB Conc 32.9 g/dL (30.0-36.0); Mean Corpuscular Hemoglobin 30.9 pg (28.0-34.0); Mean Corpuscular Volume 94.1 fl (81-99); Mean Platelet Volume 9.9 fL (7.4-10.4); Platelet Count 143 10^3/cmm (130-400); Red Blood Count 2.36 10^6/uL (4.1-5.3); Red Cell Distribution Width 15.9 % (12.1-15.1); White Blood Count 25.7 10^3/uL (4.0-10.0)
[2021-09-05 17:54] LABS: Absolute Segmented Neutrophil 20.6 10/cmm (1.6-7.1); Band Neutrophils Absolute 2.3 10^3/cmm (0.0-1.2); Eosinophils 0 %; Lymphocytes 4 %; Monocytes Absolute 0.3 10^3/cmm (0.1-0.6); Polychromasia Trace; Segmented Neutrophils 80 %; Total Cells Counted 100 (0-100)
[2021-09-05 17:55] LABS: Absolute Neutrophil 22.9 10^3/cmm (1.4-6.5); Anisocytosis 2+; Giant Platelets 1+; Platelet Estimate Normal (Normal); Poikilocytosis Trace; Smudge Cells Trace
--- NOTE | 2021-09-05 17:58 | PC.NURSE ---
Sedation has been titrated down this shift. Patient is able to open eyes and follow some commands. Turns and oral care have been done per orders. Family updated.
[2021-09-06] VITALS (94 sets, daily range): BP systolic 96–151; BP diastolic 51–85; PULSE 65–108; RESP 18–36; TEMP 37.8–38.3; O2SAT 88–98
[2021-09-06] MEDS: propofol 1,000 MG/100 ML INJ 24.83 MG IV (02:22)
--- NOTE | 2021-09-06 02:30 | PC.NURSE ---
Wasted 26.65mL's of versed. Witnessed by SUNNY Swift.
[2021-09-06] MEDS: ipratropium 0.5 mg/2.5 mL Neb INHALATION ×6 (03:21→23:37)
[2021-09-06] MEDS: levalbuterol 0.63 mg/3 mL Neb INHALATION ×6 (03:21→23:37)
[2021-09-06 03:47] LABS: ABG PCO2 31.4 mmHg (35-45); ABG PH Result 7.48 (7.35-7.45); Alveolar-Arterial Oxygen Gradi 24.2 mmHg (5-10); Arterial Blood Gas Hematocrit 24.2 % (37-47); Base Excess ABG 0.3 mmol/L (-2.0-2.0); Blood Gas Allen Test Pos; Blood Gas Sample Site Radial, right; Blood Gas Sample Type Arterial; Carboxyhemoglobin 1.8 %THgb (0.4-20.1); HCO3 ABG 23.5 mmol/L (22-26); HGB O2 Sat 91.2 % (95-100); Ionized Calcium Level - ABG 1.2 mmol/L (1.1-1.4); Methemoglobin 1.1 % (0.4-1.5); Oxygen Device VENT; PO2 ABG 61.2 mmHg (80.0-100.0); Total Hemoglobin 7.9 g/dL (12-16)
[2021-09-06 04:02] LABS: Basophils # 0.1 10^3/uL (0.0-0.1); Basophils % 0.4 %; Eosinophils # 0.4 10^3/uL (0.0-0.8); Eosinophils % 2.2 %; Hematocrit 25.3 % (37.0-47.0); Lymphocytes # 1.6 10^3/uL (0.8-4.8); Lymphocytes % 8.2 %; Mean Corpuscular HGB Conc 31.6 g/dL (30.0-36.0); Mean Corpuscular Hemoglobin 30.7 pg (28.0-34.0); Mean Corpuscular Volume 96.9 fl (81-99); Mean Platelet Volume 10.2 fL (7.4-10.4); Monocytes # 1.2 10^3/uL (0.2-0.9); Neutrophils % 71.2 %; Nucleated Red Blood Cells # 0.6 /100WBC; Nucleated Red Blood Cells % 2.9 %; Platelet Count 141 10^3/cmm (130-400); Red Blood Count 2.61 10^6/uL (4.1-5.3); Red Cell Distribution Width 15.8 % (12.1-15.1); White Blood Count 19.2 10^3/uL (4.0-10.0)
[2021-09-06 04:24] LABS: Alanine Aminotransferase 92 U/L (0-33); Albumin Level 2.8 g/dL (3.5-5.2); Alkaline Phosphatase 68 IU/L (35-105); Aspartate Amino Transferase 68 U/L (0-32); Blood Urea Nitrogen 18 mg/dL (6-20); Calcium 7.6 mg/dL (8.5-10.5); Carbon Dioxide 22 mmol/L (22-29); Chloride 107 mmol/L (98-107); Glomerular Filtration Rate 163.4 mL/min (90-130); Glucose 115 mg/dL (65-115); Osmolality Calculated 291 mOsm/kg (285-295); Sodium 139 mmol/L (136-145); Total Bilirubin 0.8 mg/dL (0.15-1.2); Total Protein 4.8 g/dL (6.6-8.7)
[2021-09-06 04:45] LABS: Slide Review Slide Review Perform
--- NOTE | 2021-09-06 04:57 | PC.NURSE ---
Patient having a hard time staying sedated and not over breathing the vent. Sedation medication turned up.
[2021-09-06] MEDS: propofol 1,000 MG/100 ML INJ 31.04 MG IV ×5 (05:33→20:20)
--- NOTE | 2021-09-06 06:00 | XR_ITS ---
WS: [id number] CHEST XRAY TECHNIQUE: Portable chest. CLINICAL INFORMATION: covid COMPARISON: September 04, 2021 FINDINGS: Endotracheal tube with tip above the jasper. Enteric tube with tip within the diaphragm. RI GHT central venous catheter tip in the distal SVC. Heart: Cardiomegaly. Lungs: Diffuse bilateral hazy pulmonary infiltrates progressed since September 04, 2021. Small bilater al pleural effusions. Bones: Normal visualized bony structures. XR/XR chest 1V portable [id number] IMPRESSION: 1. Diffuse hazy bilateral pulmonary infiltrates progressed compared to Februar y 2021. Correlation for pulmonary edema. 2. Small bilateral pleural effusions.
[2021-09-06] MEDS: budesonide 0.5 mg/2 mL Neb INHALATION ×2 (07:36→20:10)
[2021-09-06] MEDS: quetiapine 25 mg Tablet PO ×2 (07:46→18:00)
[2021-09-06] MEDS: ferrous gluconate 324 mg Tablet PO ×2 (07:46→18:00)
[2021-09-06] MEDS: ascorbic acid 500 mg Tablet PO (07:47)
[2021-09-06] MEDS: bisacodyl 5 mg Tablet 10 MG PO (07:47)
[2021-09-06] MEDS: topiramate 100 mg Tablet PO (07:47)
[2021-09-06] MEDS: montelukast sodium 10 mg Tablet PO (07:47)
[2021-09-06] MEDS: levothyroxine 25 mcg Tablet PO (07:48)
[2021-09-06] MEDS: zinc gluconate 50 mg Tablet PO (07:48)
[2021-09-06] MEDS: sennosides-docusate Tablet 1 TAB PO (07:48)
[2021-09-06] MEDS: aspirin 81 mg EC Tablet PO (07:49)
[2021-09-06] MEDS: pantoprazole 40 mg SDV IVP (07:49)
[2021-09-06] MEDS: enoxaparin 100 mg/mL Syringe 90 MG SUBCUT ×2 (09:15→22:48)
[2021-09-06] MEDS: acetaminophen 325 mg Tablet 650 MG PO (09:16)
[2021-09-06] MEDS: lidocaine 1% 5 ML in potassium chloride premix 100 ML 50 ML IV (09:16)
--- NOTE | 2021-09-06 10:18 | PC.CHAP ---
Pastoral Care Encounter/Spiritual Assessment Type of Contact [] Declined hog handler visit [] Patient/Family/Request visit [] Outpatient visit [] Follow-up visit [] Physician referral [] Code/Alert [x] Routine visit [] Staff referral [] Actively dying [] Patient sleeping [] Family support [] [] Out of room [] Palliative care [] [] Receiving care in room [] Pre-surgical visit [] Trauma [] Long length of stay [x] ICU visit [] Other: Relational/Emotional Strength [] Patient feels connected with others/family/visitors/staff [] Distress [] Loneliness/isolation [] Abandonment Spirituality of Patient [] Person of Heydi [] Attends Quaker of their Heydi [] Believes in Prayer [] Reads Bible or Quaker materials [] There are Spiritual issues to be addressed Homogenizer Operator Interventions [x] Prayer [] Active listening [] Non-anxious presence [] Spiritual/emotional support [] Crisis/trauma care [] Spiritual counseling [] Bereavement support [] Provided bereavement packet [] Provided Bible/devotional materials [] Provided toy/stuffed animal, coloring book to patient or family member [] Provided Communion [] Anointing/[place] [] Salvation [x] Completed spiritual assessment [] Other: Impact on Illness or Injury [] Angry [] Fearful [] Anxious [] Often cries [] Exhaustion [] Unable to work [] Unable to attend baptist [] Unable to walk/stand [] Unable to read [] Unable to drive [] Unable to eat/drink [] Unable to sleep [] Unable to be with family [] Patient intubated [] Other: Summary Time spent with patient
--- NOTE | 2021-09-06 10:42 | PC.SOCIAL ---
IMM Not Updated Pg. 2 of IMM not updated; patient intubated this morning. Not anticipated to discharge within 48hours.
--- NOTE | 2021-09-06 11:06 | PC.NUTR ---
When Pulmicare 1.5 resumed recommend goal rate of 40 mls/hr with flushes of 150 mls Q4H or per MD discretion. See RD note for details.
[2021-09-06] MEDS: vancomycin 1,500 MG/300 ML PIGGYBACK 200 MG IV (12:35)
--- NOTE | 2021-09-06 12:37 | P.PN_ITS ---
Subjective Subjective: As well as Xanax. Currently on Precedex drip being weaned down. Hydrocodone wakes up. Nods answers to questions. Follows commands. Denies pain or discomfort. Denies headache or photophobia. No nausea vomiting or abdominal discomfort. Vitals/I&O/Wt Last Vital Signs Temp 100.5 F H 09/06/21 10:00 Pulse 95 09/06/21 11:32 Resp 31 H 09/06/21 11:56 BP 118/59 09/06/21 10:00 Pulse Ox 95 09/06/21 11:56 09/05/21 09/06/21 09/06/21 22:59 06:59 14:59 Intake Total 1250 / 2001.567 944.603 / 2946.170 704.293 / 704.293 Output Total 2500 / 2500 1000 / 3500 Balance -1250 / -498.433 -55.397 / -553.830 704.293 / 704.293 Weight last 48 hrs Weight 107.133 kg Weight 106.594 kg Physical Exam Const: COMMON NORMALS: no acute distress GENERAL APPEARANCE: patient m echanically ventilated HENMT: COMMON NORMALS: oropharynx normal Neck/C-Spine: COMMON NORMALS: no JVD Resp: COMMON NORMALS: normal respiratory effort AUSCULTATION: crackles Laterality: bilateral Cardio: COMMON NORMALS: no JVD, regular rhythm, S1 normal heart sound present, S2 normal heart sound present and No murmurs present (Cardio) RHYTHM: regular rhythm HEART SOUNDS: S1 normal heart sound present and S2 normal heart sound present GI: COMMON NORMALS: Normal to inspection, nondistended, normoactive bowel sounds present, Soft to palpation and non-tender PALPATION: Yes Soft to palpation Extremity: COMMON NORMALS: no joint enlargement OTHER: Trace peripheral edema, more so upper extremities. Neuro: COMMON NORMALS: moves all extremities Skin: COMMON NORMALS: no rashes or lesions noted GENERAL SKIN EXAM: no rashes or lesions noted Urinary Catheter Management: Gomez: Cath Placed During This Visit: yes Reason for Continuing Indwelling Catheter: Accurate Measurement of Urinary Output in Critically Ill Patients Urinary Catheter Date of Insertion: 08/29/21 Urinary Catheter Time of Insertion: 01:18 Data : 09/06/21 03:18 09/06/21 03:18 Micro: Microbiology 09/02/21 11:16 Blood Culture - Preliminary Blood Coagulase negativ staphylococc 09/03/21 00:30 Gram Stain - Final Sputum - Endotracheal Tube Aspirate Sputum Culture - Final 09/04/21 09:16 Blood Culture - Preliminary Blood NEGATIVE TO DATE 09/02/21 22:00 Urine Culture - Final Urine Catheterized A&P Assessment and plan (1) Acute respiratory distress syndrome (ARDS) due to 2019 novel coronavirus: Oxygenation has been gradually improving. She is down to 40% FiO2 on mechanical ventilatory support. Bilateral crackles noted in the lungs today. She is going to receive a one-time small dose of IV Lasix push. At this time continue to wean down mechanical ventilatory support, wean down sedation as tolerating. She is waking up well, answering questions and following commands. Continue steroid continue empiric antibiotic coverage with Primaxin, vancomycin due to possible superimposed bacterial pneumonia with recurrence of fever. Stop fluconazole as low likelyhood of candidal pneumonia. Follow cultures. Status: Acute (2) COVID-19: Wean down oxygen support as tolerating. Completed course of Decadron. Remdesivir. Received Actemra 08/19. D-dimer level improved. Continues on Lovenox currently due to multiple PE Status: Acute (3) Septic shock: Off pressors. Status: Acute (4) Hemolytic anemia: Continue Solu-Medrol taper Pantoprazole. Status: Acute (5) Pulmonary embolism associated with COVID-19: Continues on Lovenox. Monitor blood counts in the setting of concomitant hemolytic anemia Status: Acute (6) Ileus: High residual on tube feeds, due to which they were held. Status: Acute (7) HTN (hypertension): Goal blood pressure less than 140/90 mmHg. Continue home dose of losartan. Status: Acute (8) Hypothyroidism: Continue with home dose of levothyroxine. TSH appreciated. Status: Acute (9) Anxiety: Continue home dose of topiramate, trazodone. Status: Acute (10) Goals of care, counseling/discussion: Status: Acute Attestations Medical Necessity Statement*: Continue admission for hypoxic respite failure with severe COVID-19, superimposed bacterial pneumonia, hemolytic anemia. Critical Care Time: The high probability of a clinically significant, sudden or life threatening deterioration of the patient's respiratory system(s) required my full and direct attention, intervention and personal management. The critical care time is as shown. This time is in addition to time spent performing any reported procedures but includes the following: x Data and vital sign review and interpretation x Patient assessment, examination and intervention x Documentation x Medication orders and management Coding Level of Care Code Acute Personal Lines Insurance Agent for [facility] Fwd Exam Comprehensive Diagnoses Acute respiratory distress syndrome (ARDS) due to 2019 novel coronavirus U07.1; J80 Septic shock A41.9; R65.21 COVID-19 U07.1 Pulmonary embolism associated with COVID-19 U07.1; I26.99 Hemolytic anemia D58.9 Ileus K56.7 HTN (hypertension) I10 Hypothyroidism E03.9 Anxiety F41.9 Goals of care, counseling/discussion Z71.89
[2021-09-06] MEDS: FUROsemide 10 mg/mL SDV 2mL 20 MG IVP ×2 (12:41→18:00)
--- NOTE | 2021-09-06 15:27 | PM.PN ---
Subjective Subjective: - pt seen at bedside today - on SIMV rate 16 and FIO2 40% - Pt is breathing at 30-35 breath per mimute and generating 250-270 cc with pressure support 12 and PEEP 6 - Currently still on precedex, fentanyl 100, propofol 50, - on xanax and seroquel - opens eyes and follows commands - off levophed, paralytic and pressor - Evening labs showed drop in h&h from 8.5/28 to 7.3/23 - haptoglobin pending; previously low suspect drug induced hemolysis and currently on steroids - recommend hematology consult - chest xray showed worsening left infiltrates - so far cultures negative - on vancomycin and imipenem for fever spikes - will continue diurese. - we will continue to taper sedation, and do awakening and breathing trials. - other labs and imagning reviewed. Medications: Reviewed: Yes Vitals/I&O/Wt Last Vital Signs Temp 100.5 F H 09/06/21 10:00 Pulse 66 09/06/21 15:18 Resp 34 H 09/06/21 15:19 BP 140/77 09/06/21 12:00 Pulse Ox 97 09/06/21 15:19 09/06/21 09/06/21 09/06/21 06:59 14:59 22:59 Intake Total 944.603 / 2946.170 704.293 / 704.293 Output Total 1000 / 3500 Balance -55.397 / -553.830 704.293 / 704.293 Weight last 48 hrs Weight 236 lb 3 oz Weight 235 lb Physical Exam Narrative: PHYSICAL EXAM: General: lying in bed, sedated, intubated- HEENT:NCAT, PERRLA, EOMI Neck: Supple Lungs: crackles L > R Heart: s1/s2, RRR Abd: soft, NT, ND, BS + Normoactive Extremities: No edema INSURANCE ACTUARY: Opens eyes and follows commands; sedated and limited INSURANCE ACTUARY exam possible. SKIN: no rash LDA: # CVC: Right IJ 08/30/2021 Urinary Catheter Management: Gomez: Cath Placed During This Visit: yes Reason for Continuing Indwelling Catheter: Accurate Measurement of Urinary Output in Critically Ill Patients Urinary Catheter Date of Insertion: 08/29/21 Urinary Catheter Time of Insertion: 01:18 Data : 09/06/21 15:45 09/06/21 15:45 Other Labs: Radiology Impressions Chest CTA 08/28/21 08:21 IMPRESSION: 1. Multiple small pulmonary emboli in 1st order through segmental branches of the right pulmonary artery. 2. Bilateral pneumonia, appears worsened when compared to the prior study. COMMENTS: Consistent with the [employer]'s Incidental Findings Committee white paper (J Am Margie Radiol 2018): Any incidental renal lesion less than 1 cm or classified as too small to characterize, or any incidental cystic renal lesion characterized as simple-appearing, is likely benign. No follow-up imaging is recommended for these lesions per consensus recommendations based on imaging criteria. Chest/Abdomen/Pelvis CT 09/03/21 09:34 IMPRESSION: There is been some clearing of the diffuse lung opacities compared to the previous CT scan however significant abnormality remains. Chest otherwise unchanged. No acute abnormality identified in the abdomen or pelvis. Chest X-Ray 09/06/21 06:00 IMPRESSION: 1. Diffuse hazy bilateral pulmonary infiltrates progressed compared to September 04, 2021. Correlation for pulmonary edema. 2. Small bilateral pleural effusions. Laboratory Results WBC 17.5 10^3/uL (4.0-10.0) H 09/06/21 15:45 Corrected WBC 54.7 10^3/cmm (4.8-10.8) H 09/03/21 03:40 RBC 2.46 10^6/uL (4.1-5.3) L 09/06/21 15:45 Hgb 7.8 g/dL (11.5-15.3) L 09/06/21 15:45 Hct 23.3 % (37.0-47.0) L 09/06/21 15:45 MCV 94.7 fl (81-99) 09/06/21 15:45 MCH 31.7 pg (28.0-34.0) 09/06/21 15:45 MCHC 33.5 g/dL (30.0-36.0) D 09/06/21 15:45 RDW 16.2 % (12.1-15.1) H 09/06/21 15:45 Plt Count 132 10^3/cmm (130-400) 09/06/21 15:45 MPV 10.0 fL (7.4-10.4) 09/06/21 15:45 Neut % (Auto) 71.2 % 09/06/21 03:18 Lymph % (Auto) 8.2 % 09/06/21 03:18 [place] % (Auto) 6.0 % 09/06/21 03:18 Eos % (Auto) 2.2 % 09/06/21 03:18 Baso % (Auto) 0.4 % 09/06/21 03:18 Reticulocyte % (Auto) 4.9 % (0.5-2.0) H 09/03/21 03:40 Neut # (Auto) 13.70 10^3/uL (1.8-7.7) H 09/06/21 03:18 Lymph # (Auto) 1.6 10^3/uL (0.8-4.8) 09/06/21 03:18 [place] # (Auto) 1.2 10^3/uL (0.2-0.9) H 09/06/21 03:18 Eos # (Auto) 0.4 10^3/uL (0.0-0.8) 09/06/21 03:18 Baso # (Auto) 0.1 10^3/uL (0.0-0.1) 09/06/21 03:18 Nucleated RBC % (auto) 2.9 % 09/06/21 03:18 Total Counted 100 (0-100) 09/06/21 15:45 Atypical Lymphs % 0.0 % (0-5) 09/06/21 15:45 Absolute Neutrophils 13.7 10^3/cmm (1.4-6.5) H 09/06/21 15:45 Segmented Neutrophils 67 % 09/06/21 15:45 Abs Segm Neuts (Man) 11.7 10/cmm (1.6-7.1) H 09/06/21 15:45 Band Neutrophils 11.0 % 09/06/21 15:45 Abs Band Neuts (Man) 1.9 10^3/cmm (0.0-1.2) H 09/06/21 15:45 Absolute Lymphocytes 0.9 10^3/cmm (1.2-3.4) L 09/06/21 15:45 Lymphocytes (Manual) 5 % 09/06/21 15:45 Monocytes (Manual) 5.0 % 09/06/21 15:45 Absolute Monocytes 0.9 10^3/cmm (0.1-0.6) H 09/06/21 15:45 Eosinophils (Manual) 2 % 09/06/21 15:45 Absolute Eosinophils 0.3 10^3/cmm (0.0-0.7) 09/06/21 15:45 Basophils (Manual) 0.0 % 09/06/21 15:45 Absolute Basophils 0.0 10^3/cmm (0.0-0.2) 09/06/21 15:45 Metamyelocytes 8.0 % 09/06/21 15:45 Myelocytes 2.0 % 09/06/21 15:45 Nucleated RBCs 3.0 /100WBC (0-1) H 09/05/21 17:11 Nucleated RBCs # 0.6 /100WBC 09/06/21 03:18 Differential Comment Cancelled 08/29/21 11:00 Smudge Cells Trace 09/06/21 15:45 Platelet Estimate Normal (Normal) 09/06/21 15:45 Giant Platelets 1+ H 09/05/21 17:11 Polychromasia 1+ H 09/06/21 15:45 Hypochromasia 1+ H 09/06/21 15:45 Poikilocytosis Trace 09/06/21 15:45 Anisocytosis 2+ H 09/06/21 15:45 Macrocytosis Trace 09/06/21 15:45 Haptoglobin 10.0 mg/L (30-200) L 09/03/21 03:40 PT 15.80 SECONDS (12.1-14.9) H 09/03/21 11:10 INR 1.23 (0.8-1.2) H 09/03/21 11:10 APTT 34.6 SECONDS (23.9-36.7) 09/03/21 11:10 Fibrinogen 286 mg/dL (174-498) 09/03/21 11:10 Fibrin Degrad Products Pos, 10-40 ug/mL (NEG) H 09/03/21 11:10 D-Dimer 0.78 ug/mIFEU (0-0.59) H 09/05/21 03:39 Specimen Type Arterial 09/06/21 03:45 Sample Site Radial, right 09/06/21 03:45 ABG pH 7.48 (7.35-7.45) H 09/06/21 03:45 ABG pCO2 31.4 mmHg (35-45) L 09/06/21 03:45 ABG pO2 61.2 mmHg (80.0-100.0) L 09/06/21 03:45 ABG HCO3 23.5 mmol/L (22-26) 09/06/21 03:45 ABG O2 Saturation 94.0 09/06/21 03:45 ABG Base Excess 0.3 mmol/L (-2.0-2.0) 09/06/21 03:45 Suraj Test Pos 09/06/21 03:45 A-a O2 Gradient 24.2 mmHg (5-10) H 09/06/21 03:45 Hematocrit 24.2 % (37-47) L 09/06/21 03:45 Hgb O2 Saturation 91.2 % (95-100) L 09/06/21 03:45 Carboxyhemoglobin 1.8 %THgb (0.4-20.1) 09/06/21 03:45 Methemoglobin 1.1 % (0.4-1.5) 09/06/21 03:45 Total Hemoglobin 7.9 g/dL (12-16) L 09/06/21 03:45 Sodium 141.0 mmol/L (131-143) 09/06/21 03:45 Potassium 3.0 mmol/L (3.5-5.0) L 09/06/21 03:45 Glucose 125.0 mg/dL (70-115) H 09/06/21 03:45 Ionized Calcium 1.2 mmol/L (1.1-1.4) 09/06/21 03:45 O2 Delivery Device Vent 09/06/21 03:45 O2 Liters/Min 50.0 % 08/28/21 17:41 FiO2 40.0 % 09/06/21 03:45 Tidal Volume 0.40 09/06/21 03:45 PEEP 8.0 cmH20 09/06/21 03:45 Guide Domestic Tour ID ellpe 09/06/21 03:45 Sodium 139 mmol/L (136-145) 09/06/21 15:45 Potassium 3.5 mmol/L (3.5-5.1) 09/06/21 15:45 Chloride 107 mmol/L (98-107) 09/06/21 15:45 Carbon Dioxide 23 mmol/L (22-29) 09/06/21 15:45 Anion Gap 12.5 (5-19) 09/06/21 15:45 BUN 15 mg/dL (6-20) 09/06/21 15:45 Creatinine 0.3 mg/dL (0.5-0.9) L 09/06/21 15:45 GFR Calculation 227.7 mL/min (90-130) H 09/06/21 15:45 Glucose 146 mg/dL (65-115) H 09/06/21 15:45 POC Glucose 131 mg/dL (70-110) H 08/29/21 11:26 Calculated Osmolality 291 mOsm/kg (285-295) 09/06/21 15:45 Lactic Acid 1.3 mmol/L (0.5-2.2) 08/18/21 06:49 Calcium 7.4 mg/dL (8.5-10.5) L 09/06/21 15:45 Phosphorus 2.7 mg/dL (2.5-4.5) 08/19/21 04:08 Magnesium 2.2 mg/dL (1.7-2.3) 09/06/21 15:45 Iron 12 ug/dL (37-145) L 08/18/21 05:41 TIBC 249 mcg/dl 08/18/21 05:41 % Saturation 4.8 % (20-50) L 08/18/21 05:41 Unsat Iron Binding 237 ug/dL (112-347) 08/18/21 05:41 Total Bilirubin 0.8 mg/dL (0.15-1.2) 09/06/21 03:18 AST 68 U/L (0-32) H 09/06/21 03:18 ALT 92 U/L (0-33) H 09/06/21 03:18 Alkaline Phosphatase 68 IU/L (35-105) 09/06/21 03:18 Lactate Dehydrogenase 1166 U/L (135-214) H 08/29/21 03:55 Creatine Kinase 256 U/L (26-192) H 08/30/21 04:23 Troponin T Gen 5 ng/L 31 ng/L (0-10) H 08/27/21 07:25 C-Reactive Protein 25.5 mg/L (0.0-4.9) H 09/05/21 03:39 NT-Pro-B Natriuret Pep 226 pg/mL (0-125) H 08/18/21 05:41 NT-Pro-B Natriuret Pep 242 pg/mL (0-125) H 08/18/21 05:41 Total Protein 4.8 g/dL (6.6-8.7) L 09/06/21 03:18 Albumin 2.8 g/dL (3.5-5.2) L 09/06/21 03:18 Globulin 2.0 g/dL (1.3-4.6) 09/06/21 03:18 Triglycerides 174 mg/dL (0-150) H 08/30/21 04:23 Procalcitonin 0.38 ng/mL (0-0.5) 09/03/21 03:40 TSH 1.07 uIU/mL (0.27-4.20) 08/18/21 05:41 Random Cortisol 10.46 ug/dL (2.47-19.5) 09/02/21 05:00 Urine Color Yellow (Yellow) 08/23/21 03:30 Urine Appearance Sl cloudy (CLEAR) A 08/23/21 03:30 Urine pH 6 (5-7) 08/23/21 03:30 Ur Specific [place] 1.010 (1.005-1.030) 08/23/21 03:30 Urine Protein 1+ (Negative) H 08/23/21 03:30 Urine Glucose (UA) Norm (Normal) 08/23/21 03:30 Urine Ketones 1+ (Negative) H 08/23/21 03:30 Urine Blood 3+ (Negative) H 08/23/21 03:30 Urine Nitrate Negative (Negative) 08/23/21 03:30 Urine Bilirubin Neg (Negative) 08/23/21 03:30 Urine Urobilinogen Norm mg/dL (Negative) 08/23/21 03:30 Ur Leukocyte Esterase 1+ (Negative) H 08/23/21 03:30 Urine RBC Too numerous to cnt /hpf (0-2) H 08/23/21 03:30 Urine WBC >100 /hpf (0-5) H 08/23/21 03:30 Ur Squamous Epith Cells 0-4 /hpf (0-5) H 08/23/21 03:30 Amorphous Sediment Not Reportable 08/23/21 03:30 Urine Bacteria 2+ /hpf (NONE) H 08/23/21 03:30 Fluid Source 08/29/21 11:00 Fluid Color Cancelled 08/29/21 11:00 Fluid Appearance Cancelled 08/29/21 11:00 Fluid WBC Cancelled 08/29/21 11:00 Fluid RBC Cancelled 08/29/21 11:00 Fluid Tot Cell Count Cancelled 08/29/21 11:00 Fld Polynuclear WBCs # Cancelled 08/29/21 11:00 Fld Polynuclear WBCs % Cancelled 08/29/21 11:00 Fl Mononucl WBCs #(Auto) Cancelled 08/29/21 11:00 Fl Mononuclear % Auto Cancelled 08/29/21 11:00 Bronch Specimen Source L. lower lobe 08/29/21 11:00 Bronchial Fluid Color Colorless 08/29/21 11:00 Bronchial Fluid Appearance Hazy (CLEAR) 08/29/21 11:00 Bronchial Fluid WBC 400 /uL 08/29/21 11:00 Bronchial Fluid RBC 350 10^3/uL 08/29/21 11:00 Bronch Cells Counted 200 08/29/21 11:00 Bronchial Neutrophils 68.00 % (0.9-2.3) H 08/29/21 11:00 Bronchial Lymphocytes 11.00 % (10.71-12.91) 08/29/21 11:00 Bronchial Eosinophils 3.00 % (0.13-0.25) H 08/29/21 11:00 Bronchial Macrophages 18.00 % (83.6-86.8) L 08/29/21 11:00 Bronchial Diff Comment Yes 08/29/21 11:00 Vancomycin Trough 16.9 ug/mL (10-15) H 09/03/21 22:28 Pneumocystis Source 08/29/21 11:00 Pneumocystis DNA (PCR) No dna detected copies/mL 08/29/21 11:00 Pneumocyst jiroveci PCR Not detected 08/29/21 11:00 Beta-(1,3)-D-Glucan <31 pg/mL 08/29/21 19:50 B-(1,3)-D-Glucan Intrp Negative 08/29/21 19:50 Blood Type A Positive 09/03/21 05:00 Rho(D) Type Positive 09/03/21 05:00 Antibody Screen Negative 09/03/21 05:00 Crossmatch See Detail 09/03/21 05:00 Micro: Microbiology 09/02/21 11:16 Blood Culture - Preliminary Blood Coagulase negativ staphylococc 09/03/21 00:30 Gram Stain - Final Sputum - Endotracheal Tube Aspirate Sputum Culture - Final 09/04/21 09:16 Blood Culture - Preliminary Blood NEGATIVE TO DATE A&P Assessment and plan (1) Acute respiratory failure with hypoxia: Status: Acute (2) COVID-19: Status: Acute (3) HTN (hypertension): Status: Acute (4) Hypothyroidism: Status: Acute (5) Acute respiratory distress syndrome (ARDS) due to 2019 novel coronavirus: Status: Acute (6) Anxiety: Status: Acute (7) Pulmonary embolism associated with COVID-19: Status: Acute (8) Goals of care, counseling/discussion: Status: Acute Plan #Acute hypoxic respiratory failure secondary to ARDS due to COVID-19 pneumonia/PE #Pulmonary embolism, #Hypertension #Hypothyroidism -Intubated, sedated with fentanyl, Versed, propofol , Paralyzed-completed 4 proning sessions -Currently on SIMV rate 16 /400/PS 12/ FIO2 40% - Pt is breathing at 30-35 breath per minute and generating 250-270 cc with pressure support 12 and PEEP 6 -ABG today - 7.48/32/62//94 on SIMV 400/40%/8 - Currently still on precedex, fentanyl 100, propofol 50, - on xanax and seroquel - opens eyes and follows commands - off levophed, paralytic and pressor - Evening labs showed drop in h&h from 8.5/28 to 7.3/23 - haptoglobin pending; previously low suspect drug induced hemolysis and currently on steroids - recommend hematology consult - chest xray showed worsening left infiltrates - so far cultures negative - on vancomycin and imipenem for fever spikes - will continue diurese. - we will continue to taper sedation, and do awakening and breathing trials. -Completed 5-day course of remdesivir, dexamethasone, 1 dose of Tocilizumab, and received baricitinib few doses Discontinued in view of discontinued in view of possible secondary infection - CTA 08/18/2021 was negative for pulmonary embolism but secondary to markedly elevated dimer on full dose anticoagulation with Lovenox later switched to Eliquis 5 mg twice daily--due to worsening FiO2 requirements CTA was repeated 08/28/2021 which showed multiple small pulmonary emboli in first order to segmental branches of right pulmonary artery and worsening bilateral pneumonia; Currently on Lovenox therpautic dose -Performed bronchoscopy post intubation and BAL fluid was neutrophil predominant, --DC Bactrim as patient BAL negative for PCP PCR; Sputum 08/29/2021 growing yeast-Patrica albicans-most likely commensal - DC flucanazole -Initially discontinued vancomycin as MRSA nares negative, however patient has significant leukocytosis, requiring pressors, and fever spikes-restarted vancomycin; already covered for gram-negative's with Primaxin - Echocardiogram demonstrated preserved EF, mild pulmonary hypertension -Currently on Lasix 40 mg daily-monitor input output/electrolytes/renal functions and try to keep net negative; we will give additional dose -No bowel movement yet-On lactulose; she is already on senna docusate for bowel regimen -DVT prophylaxis : already on therapeutic lovenox -GI prophylaxis: PPI -Start tube feeding at 30 cc while supine -Full code -Family updated Plan is to continue diruesis, hematology consult for hemolysis; continue to taper down sedation and do awakening trial & breathing trial tomorrow. Patient conveyed to hospitalist, RN, RT taking care of the patient Attestations Medical Necessity Statement*: Acute hypoxic respiratory failure secondary to ARDS due to COVID-19 pneumonia/pulmonary embolism/possible PCP pneumonia requiring mechanical ventilation and close monitoring in ICU Time Spent in Patient Care: Greater than 35 minutes (>than 50% of time spent in counselling and/or direct pt care on unit). Critical Care Time: The high probability of a clinically significant, sudden or life threatening deterioration of the patient's [respiratory, infectious system(s) required my full and direct attention, intervention and personal management. The critical care time is as shown. This time is in addition to time spent performing any reported procedures but includes the following: [x] Data and vital sign review and interpretation [x] Patient assessment, examination and intervention [x] Documentation [x] Medication orders and management Critical Care Time (min): 51 Coding Level of Care Code Established Pt Acute First Aid Director for g Fwd Patient Type Established History Comprehensive Exam Comprehensive Medical Decision Making High Complexity Diagnoses Acute respiratory failure with hypoxia J96.01 COVID-19 U07.1 HTN (hypertension) I10 Hypothyroidism E03.9 Acute respiratory distress syndrome (ARDS) due to 2019 novel coronavirus U07.1; J80 Anxiety F41.9 Pulmonary embolism associated with COVID-19 U07.1; I26.99 Goals of care, counseling/discussion Z71.89 Time Spent (min) 51
[2021-09-06 16:10] LABS: Hematocrit 23.3 % (37.0-47.0); Hemoglobin 7.8 g/dL (11.5-15.3); Mean Corpuscular HGB Conc 33.5 g/dL (30.0-36.0); Mean Corpuscular Hemoglobin 31.7 pg (28.0-34.0); Mean Corpuscular Volume 94.7 fl (81-99); Platelet Count 132 10^3/cmm (130-400); Red Blood Count 2.46 10^6/uL (4.1-5.3); Red Cell Distribution Width 16.2 % (12.1-15.1); White Blood Count 17.5 10^3/uL (4.0-10.0)
[2021-09-06 16:33] LABS: Anion Gap 12.5 (5-19); Blood Urea Nitrogen 15 mg/dL (6-20); Calcium 7.4 mg/dL (8.5-10.5); Carbon Dioxide 23 mmol/L (22-29); Chloride 107 mmol/L (98-107); Glomerular Filtration Rate 227.7 mL/min (90-130); Glucose 146 mg/dL (65-115); Magnesium 2.2 mg/dL (1.7-2.3); Osmolality Calculated 291 mOsm/kg (285-295); Potassium 3.5 mmol/L (3.5-5.1); Sodium 139 mmol/L (136-145)
[2021-09-06 17:04] LABS: Absolute Eosinophils 0.3 10^3/cmm (0.0-0.7); Absolute Segmented Neutrophil 11.7 10/cmm (1.6-7.1); Band Neutrophils Absolute 1.9 10^3/cmm (0.0-1.2); Eosinophils 2 %; Hypochromasia 1+; Lymphocytes 5 %; Lymphocytes Absolute 0.9 10^3/cmm (1.2-3.4); Monocytes Absolute 0.9 10^3/cmm (0.1-0.6); Poikilocytosis Trace; Polychromasia 1+; Segmented Neutrophils 67 %; Total Cells Counted 100 (0-100)
[2021-09-06 17:05] LABS: Absolute Neutrophil 13.7 10^3/cmm (1.4-6.5); Anisocytosis 2+; Macrocytosis Trace; Platelet Estimate Normal (Normal); Smudge Cells Trace
[2021-09-07] VITALS (82 sets, daily range): BP systolic 94–155; BP diastolic 51–86; PULSE 71–107; RESP 20–40; TEMP 37.2–38.6; O2SAT 87–100
[2021-09-07] MEDS: propofol 1,000 MG/100 ML INJ 31.04 MG IV ×3 (00:03→07:33)
[2021-09-07] MEDS: vancomycin 1,500 MG/300 ML PIGGYBACK 200 MG IV ×2 (00:04→12:32)
[2021-09-07] MEDS: midazolam 1 mg/mL INJ 2 mL 2 MG IVP (00:14)
[2021-09-07] MEDS: acetaminophen 325 mg Tablet 650 MG PO ×3 (00:18→12:59)
[2021-09-07 03:38] LABS: Basophils % 0.2 %; Eosinophils # 0.7 10^3/uL (0.0-0.8); Eosinophils % 4.2 %; Hematocrit 22.5 % (37.0-47.0); Hemoglobin 7.3 g/dL (11.5-15.3); Lymphocytes # 1.6 10^3/uL (0.8-4.8); Lymphocytes % 9.9 %; Mean Corpuscular HGB Conc 32.4 g/dL (30.0-36.0); Mean Corpuscular Hemoglobin 31.1 pg (28.0-34.0); Mean Corpuscular Volume 95.7 fl (81-99); Mean Platelet Volume 10.1 fL (7.4-10.4); Monocytes # 1.3 10^3/uL (0.2-0.9); Monocytes % 8.1 %; Neutrophils # 11.38 10^3/uL (1.8-7.7); Neutrophils % 70.4 %; Nucleated Red Blood Cells # 0.2 /100WBC; Nucleated Red Blood Cells % 1.4 %; Platelet Count 169 10^3/cmm (130-400); Red Blood Count 2.35 10^6/uL (4.1-5.3); Red Cell Distribution Width 16.7 % (12.1-15.1); White Blood Count 16.2 10^3/uL (4.0-10.0)
[2021-09-07] MEDS: ipratropium 0.5 mg/2.5 mL Neb INHALATION ×5 (03:39→19:47)
[2021-09-07] MEDS: levalbuterol 0.63 mg/3 mL Neb INHALATION ×5 (03:39→19:46)
[2021-09-07 03:55] LABS: Alanine Aminotransferase 62 U/L (0-33); Albumin Level 2.7 g/dL (3.5-5.2); Alkaline Phosphatase 66 IU/L (35-105); Anion Gap 12.2 (5-19); Aspartate Amino Transferase 41 U/L (0-32); Blood Urea Nitrogen 15 mg/dL (6-20); Calcium 7.6 mg/dL (8.5-10.5); Carbon Dioxide 24 mmol/L (22-29); Chloride 108 mmol/L (98-107); Globulin 2.1 g/dL (1.3-4.6); Glomerular Filtration Rate 227.7 mL/min (90-130); Glucose 119 mg/dL (65-115); Osmolality Calculated 294 mOsm/kg (285-295); Potassium 3.2 mmol/L (3.5-5.1); Sodium 141 mmol/L (136-145); Total Bilirubin 0.8 mg/dL (0.15-1.2); Total Protein 4.8 g/dL (6.6-8.7)
[2021-09-07 03:58] LABS: Slide Review Slide Review Perform
[2021-09-07 04:12] LABS: Blood Gas Allen Test Pos; Blood Gas Sample Site Radial, right; Blood Gas Sample Type Arterial; Ionized Calcium Level - ABG 1.2 mmol/L (1.1-1.4); Oxygen Device VENT
--- NOTE | 2021-09-07 06:08 | PC.NURSE ---
No acute changes overnight. Family aware of patients condition. Possible extubation today.
--- NOTE | 2021-09-07 06:09 | XR_ITS ---
WS: [id number] CHEST XRAY TECHNIQUE: Portable chest. CLINICAL INFORMATION: pneumonia COMPARISON: September 06, 2021 FINDINGS: Endotracheal tube with tip above the jasper. Enteric tube with tip in the stomach. RIGHT ce ntral venous catheter tip in the distal SVC. Heart: Cardiomegaly. Shallow inspiration. Lungs: Diffuse bilateral pulmonary infiltrates unchanged since September 06, 2021. Shallow inspiration . Small pleural effusions. Bones: Normal visualized bony structures. XR/XR chest 1V portable [id number] IMPRESSION: 1. Diffuse bilateral pulmonary infiltrates are unchanged since September 06. 2. Small bilateral pleural effusions. This
[2021-09-07 06:37] LABS: ABG PCO2 33.4 mmHg (35-45); ABG PH Result 7.49 (7.35-7.45); Alveolar-Arterial Oxygen Gradi 23.8 mmHg (5-10); Arterial Blood Gas Hematocrit 22.8 % (37-47); Base Excess ABG 1.9 mmol/L (-2.0-2.0); HCO3 ABG 25.3 mmol/L (22-26); HGB O2 Sat 91.2 % (95-100); Oxygen Saturation ABG 94.1; PO2 ABG 62.4 mmHg (80.0-100.0); Potassium Level - ABG 3.1 mmol/L (3.5-5.0); Total Hemoglobin 7.4 g/dL (12-16)
[2021-09-07] MEDS: FUROsemide 10 mg/mL SDV 4mL 40 MG IVP ×2 (08:20→20:33)
[2021-09-07] MEDS: montelukast sodium 10 mg Tablet PO (08:21)
[2021-09-07] MEDS: levothyroxine 25 mcg Tablet PO (08:21)
[2021-09-07] MEDS: sennosides-docusate Tablet 1 TAB PO (08:21)
[2021-09-07] MEDS: bisacodyl 5 mg Tablet 10 MG PO (08:21)
[2021-09-07] MEDS: zinc gluconate 50 mg Tablet PO (08:21)
[2021-09-07] MEDS: pantoprazole 40 mg SDV IVP (08:21)
[2021-09-07] MEDS: aspirin 81 mg EC Tablet PO (08:21)
[2021-09-07] MEDS: quetiapine 25 mg Tablet PO ×2 (08:21→17:10)
[2021-09-07] MEDS: ferrous gluconate 324 mg Tablet PO ×2 (08:22→17:10)
[2021-09-07] MEDS: ascorbic acid 500 mg Tablet PO (08:22)
[2021-09-07] MEDS: bisacodyl 10 mg Supp PR (08:22)
[2021-09-07] MEDS: topiramate 100 mg Tablet PO (08:22)
[2021-09-07] MEDS: budesonide 0.5 mg/2 mL Neb INHALATION ×2 (08:25→19:47)
[2021-09-07 08:41] LABS: Add Urine Microscopic? YES; Bilirubin Urine Neg (Negative); Blood Urine Neg (Negative); Glucose Urine UA Norm (Normal); Ketones Urine 1+ (Negative); Leukocyte Esterase Urine Negative (Negative); Nitrate Urine Negative (Negative); Protein Urine 1+ (Negative); Urine Appearance Clear (CLEAR); Urine Color Yellow (Yellow); Urobilinogen Urine 1 mg/dL (Negative); pH Urine 5 (5-7)
[2021-09-07 08:49] LABS: Add Urine Culture? No; Amorphous Sediment Urine TRACE /hpf; Bacteria Urine 1+ /hpf; Mucus Urine TRACE /hpf; RBC Urine 0-4 /hpf (0-2); Squamous Epithelial Cell Urine RARE /hpf (0-5); WBC Urine 0-4 /hpf (0-5)
[2021-09-07 09:05] LABS: ABG PCO2 42.9 mmHg (35-45); ABG PH Result 7.37 (7.35-7.45); Arterial Blood Gas Hematocrit 35.7 % (37-47); Base Excess ABG -0.9 mmol/L (-2.0-2.0); Blood Gas Allen Test Pos; Blood Gas Sample Site Radial, right; Blood Gas Sample Type Arterial; Blood Gas Tidal Volume 0.42; HCO3 ABG 24.5 mmol/L (22-26); Oxygen Device VENT
--- NOTE | 2021-09-07 10:29 | P.PN_ITS ---
Subjective Subjective: - pt seen at bedside today - on SIMV rate 16 and FIO2 40% - Plan is to try pressure support today - still on precedex, fentanyl 100, propofol 50, - on xanax and seroquel - opens eyes and follows commands - Labs show gradual drop in hemoglobin hematocrit to 7.3/22.5 - haptoglobin Low 14; with normal bilirubin - Doubt if it is drug-induced hemolytic anemia.-We will transfuse 1 unit PRBC - chest xray showed worsening left infiltrates - so far cultures negative - on vancomycin and imipenem for fever spikes - will continue diurese. resend cultures - we will continue to taper sedation, and do awakening and breathing trials. - other labs and imagning reviewed. Medications: Reviewed: Yes Vitals/I&O/Wt Last Vital Signs Temp 101.4 F H 09/07/21 08:00 Pulse 76 09/07/21 10:00 Resp 31 H 09/07/21 09:43 BP 94/51 09/07/21 10:00 Pulse Ox 91 09/07/21 10:00 09/06/21 09/07/21 09/07/21 22:59 06:59 14:59 Intake Total 1060 / 1764.293 600 / 2364.293 100 / 100 Output Total 1900 / 1900 1500 / 3400 Balance -840 / -135.707 -900 / -1035.707 100 / 100 Weight last 48 hrs Weight 237 lb 2 oz Weight 236 lb 3 oz Physical Exam Narrative: PHYSICAL EXAM: General: lying in bed, sedated, intubated- HEENT:NCAT, PERRLA, EOMI Neck: Supple Lungs: crackles L > R Heart: s1/s2, RRR Abd: soft, NT, ND, BS + Normoactive Extremities: No edema HOSPITAL WELLNESS COORDINATOR: Opens eyes and follows commands; sedated and limited HOSPITAL WELLNESS COORDINATOR exam possible. SKIN: no rash LDA: # CVC: Right IJ 08/30/2021 Urinary Catheter Management: Gomez: Cath Placed During This Visit: yes Reason for Continuing Indwelling Catheter: Accurate Measurement of Urinary Output in Critically Ill Patients Urinary Catheter Date of Insertion: 08/29/21 Urinary Catheter Time of Insertion: 01:18 Data : 09/07/21 03:00 09/07/21 03:00 Other Labs: Radiology Impressions Chest CTA 08/28/21 08:21 IMPRESSION: 1. Multiple small pulmonary emboli in 1st order through segmental branches of the right pulmonary artery. 2. Bilateral pneumonia, appears worsened when compared to the prior study. COMMENTS: Consistent with the [employer]'s Incidental Findings Committee white paper (J Am Margie Radiol 2018): Any incidental renal lesion less than 1 cm or classified as too small to characterize, or any incidental cystic renal lesion characterized as simple-appearing, is likely benign. No follow-up imaging is recommended for these lesions per consensus recommendations based on imaging criteria. Chest/Abdomen/Pelvis CT 09/03/21 09:34 IMPRESSION: There is been some clearing of the diffuse lung opacities compared to the previous CT scan however significant abnormality remains. Chest otherwise unchanged. No acute abnormality identified in the abdomen or pelvis. Chest X-Ray 09/07/21 06:09 IMPRESSION: 1. Diffuse bilateral pulmonary infiltrates are unchanged since September 06, 2021. 2. Small bilateral pleural effusions. This Laboratory Results WBC 16.2 10^3/uL (4.0-10.0) H 09/07/21 03:00 Corrected WBC 54.7 10^3/cmm (4.8-10.8) H 09/03/21 03:40 RBC 2.35 10^6/uL (4.1-5.3) L 09/07/21 03:00 Hgb 7.3 g/dL (11.5-15.3) L 09/07/21 03:00 Hct 22.5 % (37.0-47.0) L 09/07/21 03:00 MCV 95.7 fl (81-99) 09/07/21 03:00 MCH 31.1 pg (28.0-34.0) 09/07/21 03:00 MCHC 32.4 g/dL (30.0-36.0) 09/07/21 03:00 RDW 16.7 % (12.1-15.1) H 09/07/21 03:00 Plt Count 169 10^3/cmm (130-400) 09/07/21 03:00 MPV 10.1 fL (7.4-10.4) 09/07/21 03:00 Neut % (Auto) 70.4 % 09/07/21 03:00 Lymph % (Auto) 9.9 % 09/07/21 03:00 [place] % (Auto) 8.1 % 09/07/21 03:00 Eos % (Auto) 4.2 % 09/07/21 03:00 Baso % (Auto) 0.2 % 09/07/21 03:00 Reticulocyte % (Auto) 4.9 % (0.5-2.0) H 09/03/21 03:40 Neut # (Auto) 11.38 10^3/uL (1.8-7.7) H 09/07/21 03:00 Lymph # (Auto) 1.6 10^3/uL (0.8-4.8) 09/07/21 03:00 [place] # (Auto) 1.3 10^3/uL (0.2-0.9) H 09/07/21 03:00 Eos # (Auto) 0.7 10^3/uL (0.0-0.8) 09/07/21 03:00 Baso # (Auto) 0.0 10^3/uL (0.0-0.1) 09/07/21 03:00 Nucleated RBC % (auto) 1.4 % 09/07/21 03:00 Total Counted 100 (0-100) 09/06/21 15:45 Atypical Lymphs % 0.0 % (0-5) 09/06/21 15:45 Absolute Neutrophils 13.7 10^3/cmm (1.4-6.5) H 09/06/21 15:45 Segmented Neutrophils 67 % 09/06/21 15:45 Abs Segm Neuts (Man) 11.7 10/cmm (1.6-7.1) H 09/06/21 15:45 Band Neutrophils 11.0 % 09/06/21 15:45 Abs Band Neuts (Man) 1.9 10^3/cmm (0.0-1.2) H 09/06/21 15:45 Absolute Lymphocytes 0.9 10^3/cmm (1.2-3.4) L 09/06/21 15:45 Lymphocytes (Manual) 5 % 09/06/21 15:45 Monocytes (Manual) 5.0 % 09/06/21 15:45 Absolute Monocytes 0.9 10^3/cmm (0.1-0.6) H 09/06/21 15:45 Eosinophils (Manual) 2 % 09/06/21 15:45 Absolute Eosinophils 0.3 10^3/cmm (0.0-0.7) 09/06/21 15:45 Basophils (Manual) 0.0 % 09/06/21 15:45 Absolute Basophils 0.0 10^3/cmm (0.0-0.2) 09/06/21 15:45 Metamyelocytes 8.0 % 09/06/21 15:45 Myelocytes 2.0 % 09/06/21 15:45 Nucleated RBCs 3.0 /100WBC (0-1) H 09/05/21 17:11 Nucleated RBCs # 0.2 /100WBC 09/07/21 03:00 Differential Comment Cancelled 08/29/21 11:00 Smudge Cells Trace 09/06/21 15:45 Platelet Estimate Normal (Normal) 09/06/21 15:45 Giant Platelets 1+ H 09/05/21 17:11 Polychromasia 1+ H 09/06/21 15:45 Hypochromasia 1+ H 09/06/21 15:45 Poikilocytosis Trace 09/06/21 15:45 Anisocytosis 2+ H 09/06/21 15:45 Macrocytosis Trace 09/06/21 15:45 Haptoglobin 14.0 mg/L (30-200) L 09/06/21 15:45 PT 15.80 SECONDS (12.1-14.9) H 09/03/21 11:10 INR 1.23 (0.8-1.2) H 09/03/21 11:10 APTT 34.6 SECONDS (23.9-36.7) 09/03/21 11:10 Fibrinogen 286 mg/dL (174-498) 09/03/21 11:10 Fibrin Degrad Products Pos, 10-40 ug/mL (NEG) H 09/03/21 11:10 D-Dimer 0.78 ug/mIFEU (0-0.59) H 09/05/21 03:39 Specimen Type Arterial 09/07/21 04:00 Sample Site Radial, right 09/07/21 04:00 ABG pH 7.49 (7.35-7.45) H 09/07/21 04:00 ABG pCO2 33.4 mmHg (35-45) L 09/07/21 04:00 ABG pO2 62.4 mmHg (80.0-100.0) L 09/07/21 04:00 ABG HCO3 25.3 mmol/L (22-26) 09/07/21 04:00 ABG O2 Saturation 94.1 09/07/21 04:00 ABG Base Excess 1.9 mmol/L (-2.0-2.0) 09/07/21 04:00 Suraj Test Pos 09/07/21 04:00 A-a O2 Gradient 23.8 mmHg (5-10) H 09/07/21 04:00 Hematocrit 22.8 % (37-47) L 09/07/21 04:00 Hgb O2 Saturation 91.2 % (95-100) L 09/07/21 04:00 Carboxyhemoglobin 2.0 %THgb (0.4-20.1) 09/07/21 04:00 Methemoglobin 1.0 % (0.4-1.5) 09/07/21 04:00 Total Hemoglobin 7.4 g/dL (12-16) L 09/07/21 04:00 Sodium 142.0 mmol/L (131-143) 09/07/21 04:00 Potassium 3.1 mmol/L (3.5-5.0) L 09/07/21 04:00 Glucose 123.0 mg/dL (70-115) H 09/07/21 04:00 Ionized Calcium 1.2 mmol/L (1.1-1.4) 09/07/21 04:00 O2 Delivery Device Vent 09/07/21 04:00 O2 Liters/Min 50.0 % 08/28/21 17:41 FiO2 40.0 % 09/07/21 04:00 Tidal Volume 0.40 09/07/21 04:00 PEEP 6.0 cmH20 09/07/21 04:00 Packaging Mechanic ID ellpe 09/07/21 04:00 Sodium 141 mmol/L (136-145) 09/07/21 03:00 Potassium 3.2 mmol/L (3.5-5.1) L 09/07/21 03:00 Chloride 108 mmol/L (98-107) H 09/07/21 03:00 Carbon Dioxide 24 mmol/L (22-29) 09/07/21 03:00 Anion Gap 12.2 (5-19) 09/07/21 03:00 BUN 15 mg/dL (6-20) 09/07/21 03:00 Creatinine 0.3 mg/dL (0.5-0.9) L 09/07/21 03:00 GFR Calculation 227.7 mL/min (90-130) H 09/07/21 03:00 Glucose 119 mg/dL (65-115) H 09/07/21 03:00 POC Glucose 131 mg/dL (70-110) H 08/29/21 11:26 Calculated Osmolality 294 mOsm/kg (285-295) 09/07/21 03:00 Lactic Acid 1.3 mmol/L (0.5-2.2) 08/18/21 06:49 Calcium 7.6 mg/dL (8.5-10.5) L 09/07/21 03:00 Phosphorus 2.7 mg/dL (2.5-4.5) 08/19/21 04:08 Magnesium 2.2 mg/dL (1.7-2.3) 09/06/21 15:45 Iron 12 ug/dL (37-145) L 08/18/21 05:41 TIBC 249 mcg/dl 08/18/21 05:41 % Saturation 4.8 % (20-50) L 08/18/21 05:41 Unsat Iron Binding 237 ug/dL (112-347) 08/18/21 05:41 Total Bilirubin 0.8 mg/dL (0.15-1.2) 09/07/21 03:00 AST 41 U/L (0-32) H 09/07/21 03:00 ALT 62 U/L (0-33) H 09/07/21 03:00 Alkaline Phosphatase 66 IU/L (35-105) 09/07/21 03:00 Lactate Dehydrogenase 1166 U/L (135-214) H 08/29/21 03:55 Creatine Kinase 256 U/L (26-192) H 08/30/21 04:23 Troponin T Gen 5 ng/L 31 ng/L (0-10) H 08/27/21 07:25 C-Reactive Protein 25.5 mg/L (0.0-4.9) H 09/05/21 03:39 NT-Pro-B Natriuret Pep 226 pg/mL (0-125) H 08/18/21 05:41 NT-Pro-B Natriuret Pep 242 pg/mL (0-125) H 08/18/21 05:41 Total Protein 4.8 g/dL (6.6-8.7) L 09/07/21 03:00 Albumin 2.7 g/dL (3.5-5.2) L 09/07/21 03:00 Globulin 2.1 g/dL (1.3-4.6) 09/07/21 03:00 Triglycerides 174 mg/dL (0-150) H 08/30/21 04:23 Procalcitonin 0.38 ng/mL (0-0.5) 09/03/21 03:40 TSH 1.07 uIU/mL (0.27-4.20) 08/18/21 05:41 Random Cortisol 10.46 ug/dL (2.47-19.5) 09/02/21 05:00 Urine Color Yellow (Yellow) 09/07/21 08:00 Urine Appearance Clear (CLEAR) 09/07/21 08:00 Urine pH 5 (5-7) 09/07/21 08:00 Ur Specific [place] 1.020 (1.005-1.030) 09/07/21 08:00 Urine Protein 1+ (Negative) H 09/07/21 08:00 Urine Glucose (UA) Norm (Normal) 09/07/21 08:00 Urine Ketones 1+ (Negative) H 09/07/21 08:00 Urine Blood Neg (Negative) 09/07/21 08:00 Urine Nitrate Negative (Negative) 09/07/21 08:00 Urine Bilirubin Neg (Negative) 09/07/21 08:00 Urine Urobilinogen 1 mg/dL (Negative) H 09/07/21 08:00 Ur Leukocyte Esterase Negative (Negative) 09/07/21 08:00 Urine RBC 0-4 /hpf (0-2) H 09/07/21 08:00 Urine WBC 0-4 /hpf (0-5) H 09/07/21 08:00 Ur Squamous Epith Cells Rare /hpf (0-5) 09/07/21 08:00 Amorphous Sediment Trace /hpf 09/07/21 08:00 Urine Bacteria 1+ /hpf (NONE) H 09/07/21 08:00 Urine Mucus Trace /hpf 09/07/21 08:00 Fluid Source 08/29/21 11:00 Fluid Color Cancelled 08/29/21 11:00 Fluid Appearance Cancelled 08/29/21 11:00 Fluid WBC Cancelled 08/29/21 11:00 Fluid RBC Cancelled 08/29/21 11:00 Fluid Tot Cell Count Cancelled 08/29/21 11:00 Fld Polynuclear WBCs # Cancelled 08/29/21 11:00 Fld Polynuclear WBCs % Cancelled 08/29/21 11:00 Fl Mononucl WBCs #(Auto) Cancelled 08/29/21 11:00 Fl Mononuclear % Auto Cancelled 08/29/21 11:00 Bronch Specimen Source L. lower lobe 08/29/21 11:00 Bronchial Fluid Color Colorless 08/29/21 11:00 Bronchial Fluid Appearance Hazy (CLEAR) 08/29/21 11:00 Bronchial Fluid WBC 400 /uL 08/29/21 11:00 Bronchial Fluid RBC 350 10^3/uL 08/29/21 11:00 Bronch Cells Counted 200 08/29/21 11:00 Bronchial Neutrophils 68.00 % (0.9-2.3) H 08/29/21 11:00 Bronchial Lymphocytes 11.00 % (10.71-12.91) 08/29/21 11:00 Bronchial Eosinophils 3.00 % (0.13-0.25) H 08/29/21 11:00 Bronchial Macrophages 18.00 % (83.6-86.8) L 08/29/21 11:00 Bronchial Diff Comment Yes 08/29/21 11:00 Vancomycin Trough 16.9 ug/mL (10-15) H 09/03/21 22:28 Pneumocystis Source 08/29/21 11:00 Pneumocystis DNA (PCR) No dna detected copies/mL 08/29/21 11:00 Pneumocyst jiroveci PCR Not detected 08/29/21 11:00 Beta-(1,3)-D-Glucan <31 pg/mL 08/29/21 19:50 B-(1,3)-D-Glucan Intrp Negative 08/29/21 19:50 Blood Type A Positive 09/07/21 07:55 Rho(D) Type Positive 09/07/21 07:55 Antibody Screen Negative 09/07/21 07:55 Crossmatch See Detail 09/07/21 07:55 Micro: Microbiology 09/07/21 07:50 Blood Culture - Preliminary Blood SPECIMEN COLLECTED 09/07/21 07:50 Blood Culture - Preliminary Blood SPECIMEN COLLECTED A&P Assessment and plan (1) Acute respiratory failure with hypoxia: Status: Acute (2) COVID-19: Status: Acute (3) HTN (hypertension): Status: Acute (4) Hypothyroidism: Status: Acute (5) Acute respiratory distress syndrome (ARDS) due to 2019 novel coronavirus: Status: Acute (6) Anxiety: Status: Acute (7) Pulmonary embolism associated with COVID-19: Status: Acute (8) Goals of care, counseling/discussion: Status: Acute Plan #Acute hypoxic respiratory failure secondary to ARDS due to COVID-19 pneumonia/PE #Pulmonary embolism, #Hypertension #Hypothyroidism -Intubated, sedated with fentanyl, Versed, propofol , Paralyzed-completed 4 proning sessions -Currently on SIMV rate 16 /400/PS 12/ FIO2 40% - we will try pressure support -ABG today - 7.49/33/62/25/94% - Currently still on precedex, fentanyl 100, propofol 50, - on xanax and seroquel - opens eyes and follows commands - off levophed, paralytic and pressor - - Labs show gradual drop in hemoglobin hematocrit to 7.3/22.5 - haptoglobin Low 14; with normal bilirubin - Doubt if it is drug-induced hemolytic anemia.- We will transfuse 1 unit PRBC - chest xray showed worsening left infiltrates - so far cultures negative - on vancomycin and imipenem for fever spikes - will continue diurese. - we will continue to taper sedation, and do awakening and breathing trials. -Completed 5-day course of remdesivir, dexamethasone, 1 dose of Tocilizumab, and received baricitinib few doses Discontinued in view of discontinued in view of possible secondary infection - CTA 08/18/2021 was negative for pulmonary embolism but secondary to markedly elevated dimer on full dose anticoagulation with Lovenox later switched to Eliquis 5 mg twice daily--due to worsening FiO2 requirements CTA was repeated 08/28/2021 which showed multiple small pulmonary emboli in first order to segmen kumar branches of right pulmonary artery and worsening bilateral pneumonia; Currently on Lovenox therpautic dose -Performed bronchoscopy post intubation and BAL fluid was neutrophil predominant, --DC Bactrim as patient BAL negative for PCP PCR; Sputum 08/29/2021 growing yeast- Patrica albicans-most likely commensal - DC flucanazole -Initially discontinued vancomycin as MRSA nares negative, however patient has significant leukocytosis, requiring pressors, and fever spikes-restarted vancomycin; already covered for gram-negative's with Primaxin; resend cultures blood, urine and sputum - Echocardiogram demonstrated preserved EF, mild pulmonary hypertension -Currently on Lasix 40 mg twice daily-monitor input output/electrolytes/renal functions and try to keep net negative; K 3.2 - Supplemented KCL 20 MEQ iv -No bowel movement yet-On lactulose; she is already on senna docusate for bowel regimen -DVT prophylaxis : already on therapeutic lovenox -GI prophylaxis: PPI -Start tube feeding at 30 cc while supine -Full code -Family updated Plan is to continue diruesis, continue to taper down sedation and do awakening trial & breathing trial tomorrow. Patient conveyed to hospitalist, RN, RT taking care of the patient Attestations Medical Necessity Statement*: Acute hypoxic respiratory failure secondary to ARDS due to COVID-19 pneumonia/pulmonary embolism requiring mechanical ventilation and close monitoring in ICU Time Spent in Patient Care: Greater than 35 minutes (>than 50% of time spent in counselling and/or direct pt care on unit) . Critical Care Time: The high probability of a clinically significant, sudden or life threatening deterioration of the patient's [respiratory, infectious system(s) required my full and direct attention, intervention and personal manag ement. The critical care time is as shown. 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
[2021-09-07] MEDS: enoxaparin 100 mg/mL Syringe 90 MG SUBCUT (10:50)
[2021-09-07] MEDS: potassium chloride premix 100 ML 50 MEQ IV (10:52)
[2021-09-07] MEDS: propofol 1,000 MG/100 ML INJ 24.83 MG IV (11:34)
--- NOTE | 2021-09-07 13:47 | PC.NURSE ---
Extubated at 1335 by RT. Family at bedside. No complications.
[2021-09-07] MEDS: cetylpyridinium Lozenge 1 EACH MUCOUS MEM ×3 (13:50→22:43)
--- NOTE | 2021-09-07 13:50 | PM.PN ---
Subjective Subjective: Wakes up to voice and shoulder touch. Denies pain or discomfort. Denies trouble breathing. Vitals/I&O/Wt Last Vital Signs Temp 99.0 F 09/07/21 13:25 Pulse 99 09/07/21 13:30 Resp 32 H 09/07/21 13:25 BP 155/84 09/07/21 13:30 Pulse Ox 94 09/07/21 13:30 09/06/21 09/07/21 09/07/21 22:59 06:59 14:59 Intake Total 1060 / 1764.293 860 / 2624.293 681.659 / 681.659 Output Total 1900 / 1900 1500 / 3400 Balance -840 / -135.707 -640 / -775.707 681.659 / 681.659 Weight last 48 hrs Weight 107.558 kg Weight 107.133 kg Physical Exam Const: COMMON NORMALS: no acute distress GENERAL APPEARANCE: patient mechanically ventilated HENMT: COMMON NORMALS: oropharynx normal Neck/C-Spine: COMMON NORMALS: no JVD Resp: COMMON NORMALS: normal respiratory effort AUSCULTATION: crackles Laterality: bilateral Cardio: COMMON NORMALS: no JVD, regular rhythm, S1 normal heart sound present, S2 normal heart sound present and No murmurs present (Cardio) RHYTHM: regular rhythm HEART SOUNDS: S1 normal heart sound present and S2 normal heart sound present GI: COMMON NORMALS: Normal to inspection, nondistended, normoactive bowel sounds present, Soft to palpation and non-tender PALPATION: Yes Soft to palpation Extremity: COMMON NORMALS: no joint enlargement OTHER: Trace peripheral edema Neuro: COMMON NORMALS: moves all extremities Skin: COMMON NORMALS: no rashes or lesions noted GENERAL SKIN EXAM: no rashes or lesions noted Urinary Catheter Management: Gomez: Cath Placed During This Visit: yes Reason for Continuing Indwelling Catheter: Accurate Measurement of Urinary Output in Critically Ill Patients Urinary Catheter Date of Insertion: 08/29/21 Urinary Catheter Time of Insertion: 01:18 Data : 09/07/21 03:00 09/07/21 03:00 Micro: Microbiology 09/02/21 11:16 Blood Culture - Final Blood Coagulase negativ staphylococc 09/02/21 11:18 Blood Culture - Final Blood NO GROWTH AFTER 5 DAYS 09/07/21 07:50 Blood Culture - Preliminary Blood SPECIMEN COLLECTED 09/07/21 07:50 Blood Culture - Preliminary Blood SPECIMEN COLLECTED A&P Assessment and plan (1) Acute respiratory distress syndrome (ARDS) due to 2019 novel coronavirus: Oxygenation remained steady on 40% FiO2, with unchanged chest x-ray. Discussed with pulmonology. Did well with pressure support today. Extubated to heated high flow cannula Crackles have resolved. Yesterday received additional Lasix in the evening. Standing Lasix for now. Continues on steroids for hemolysis, continue empiric antibiotic coverage with Primaxin, vancomycin due to possible superimposed bacterial pneumonia with recurrence of fever. Stopped fluconazole as low likelyhood of candidal pneumonia. Follow cultures. Due to persistent low-grade fevers cultures repeated today with blood cultures, UA, sputum cultures requested. Status: Acute (2) COVID-19: Wean down oxygen support as tolerating. Completed course of Decadron. Remdesivir. Received Actemra 08/19. D-dimer level improved. Continues on Lovenox currently due to multiple PE Status: Acute (3) Hemolytic anemia: Some persistent low-level hemolysis, hemoglobin down to 7.3. Haptoglobin low but not suppressed. T bili is normal. Again PRBC transfusion given today. Requesting to add peripheral smear to pretransfusion blood. Continue Solu-Medrol, dose increased slightly to 30 mg. Repeat DIC panel requested. Intermediate possibility of HIT by 4ts. Not clear thrombocytopenia, although PLT slightly lower. Will request HIT Ab and MERRITT. Switch anticoagulation to argatroban for now. Status: Acute (4) Septic shock: Off pressors. Status: Acute (5) Pulmonary embolism associated with COVID-19: Continues on Lovenox. Monitor blood counts in the setting of concomitant hemolytic anemia Status: Acute (6) Ileus: High residual on tube feeds, due to which they were held. Status: Acute (7) HTN (hypertension): Goal blood pressure less than 140/90 mmHg. Continue home dose of losartan. Status: Acute (8) Hypothyroidism: Continue with home dose of levothyroxine. TSH appreciated. Status: Acute (9) Anxiety: Continue home dose of topiramate, trazodone. Status: Acute (10) Goals of care, counseling/discussion: Status: Acute Attestations Medical Necessity Statement*: Continue admission for assessment management of hypoxic respite failure with severe COVID-19. Critical Care Time: The high probability of a clinically significant, sudden or life threatening deterioration of the patient's respiratory, hematologic system(s) required my full and direct attention, intervention and personal management. The critical care time is as shown. This time is in addition to time spent performing any reported procedures but includes the following: x Data and vital sign review and interpretation x Patient assessment, examination and intervention x Documentation x Medication orders and management Critical Care Time (min): 40 Coding Level of Care Code Acute Medical Records Clerk for [facility] Fwd Diagnoses Acute respiratory distress syndrome (ARDS) due to 2019 novel coronavirus U07.1; J80 COVID-19 U07.1 Septic shock A41.9; R65.21 Hemolytic anemia D58.9 Pulmonary embolism associated with COVID-19 U07.1; I26.99 Ileus K56.7 HTN (hypertension) I10 Hypothyroidism E03.9 Anxiety F41.9 Goals of care, counseling/discussion Z71.89
[2021-09-07] MEDS: sodium chloride 0.9% (100 ml) 100 ML (14:19)
[2021-09-07 14:43] LABS: LAB Peripheral Smear Sent for Review
[2021-09-07] MEDS: HYDROcodone-acetaminophen 5-325 mg Tablet 1 TAB PO ×2 (17:10→23:29)
[2021-09-07] MEDS: argatroban 250 MG in sodium chloride 0.9% 250 ML 13.04 MG IV (20:50)
--- NOTE | 2021-09-07 21:07 | ECG_ITS ---
[facility] Test Date: 2021-09-07 Pat Name: Renetta Uriostegui Department: Room: ICU03 Gender: Female Database Support: : 1960 Requested By: Cuba Gee Order Number: [id number] Sigrid MD: Esperanza Mejia M.D. Measurements Intervals [place] Rate: 73 P: 33 CA: 165 QRS: -28 QRSD: 98 T: -39 QT: 366 QTc: 405 Interpretive Statements SINUS RHYTHM BORDERLINE LEFT AXIS DEVIATION [QRS AXIS < -20] MINIMAL ST DEPRESSION [0.025+ mV ST DEPRESSION] T wave abnormality consider inferolateral ischemia Compared to ECG 08/27/2021 05:41:44 ST (T wave) deviation now present Electronically Signed On 09-08-2021 9:16:50 MANAGER PLUMBING by Esperanza Mejia M.D. [id number]
[2021-09-07] MEDS: lactulose oral liq 20 gm/30 mL UDC 10 GM PO (23:29)
[2021-09-08] VITALS (71 sets, daily range): BP systolic 109–152; BP diastolic 57–104; PULSE 76–113; RESP 16–41; TEMP 37.6–38; O2SAT 85–100; BMI 37.1
[2021-09-08] MEDS: ipratropium 0.5 mg/2.5 mL Neb INHALATION ×5 (01:15→21:30)
[2021-09-08] MEDS: levalbuterol 0.63 mg/3 mL Neb INHALATION ×4 (04:15→21:30)
[2021-09-08 04:25] LABS: Basophils % 0.2 %; Eosinophils # 0.2 10^3/uL (0.0-0.8); Eosinophils % 1.2 %; Hematocrit 25.2 % (37.0-47.0); Hemoglobin 8.5 g/dL (11.5-15.3); Lymphocytes # 1.3 10^3/uL (0.8-4.8); Lymphocytes % 7.5 %; Mean Corpuscular HGB Conc 33.7 g/dL (30.0-36.0); Mean Corpuscular Hemoglobin 31.1 pg (28.0-34.0); Mean Corpuscular Volume 92.3 fl (81-99); Mean Platelet Volume 9.8 fL (7.4-10.4); Monocytes # 1.7 10^3/uL (0.2-0.9); Monocytes % 10.1 %; Neutrophils # 12.98 10^3/uL (1.8-7.7); Nucleated Red Blood Cells # 0.1 /100WBC; Nucleated Red Blood Cells % 0.8 %; Platelet Count 189 10^3/cmm (130-400); Red Blood Count 2.73 10^6/uL (4.1-5.3); Red Cell Distribution Width 16.2 % (12.1-15.1); White Blood Count 16.9 10^3/uL (4.0-10.0)
[2021-09-08 04:26] LABS: Hematocrit 25.3 % (37.0-47.0); Retic Production Index 4.81; Reticulocyte % 7.6 % (0.5-2.0)
[2021-09-08 04:37] LABS: INR 3.27 (0.8-1.2)
[2021-09-08 04:38] LABS: Fibrinogen 417 mg/dL (174-498)
[2021-09-08 04:41] LABS: Alanine Aminotransferase 52 U/L (0-33); Albumin Level 2.9 g/dL (3.5-5.2); Alkaline Phosphatase 63 IU/L (35-105); Anion Gap 15.1 (5-19); Aspartate Amino Transferase 38 U/L (0-32); Blood Urea Nitrogen 16 mg/dL (6-20); Calcium 7.9 mg/dL (8.5-10.5); Carbon Dioxide 24 mmol/L (22-29); Chloride 108 mmol/L (98-107); Globulin 2.5 g/dL (1.3-4.6); Glomerular Filtration Rate 227.7 mL/min (90-130); Glucose 131 mg/dL (65-115); Lactate Dehydrogenase 654 U/L (135-214); Osmolality Calculated 301 mOsm/kg (285-295); Potassium 3.1 mmol/L (3.5-5.1); Sodium 144 mmol/L (136-145); Total Bilirubin 0.9 mg/dL (0.15-1.2); Total Protein 5.4 g/dL (6.6-8.7)
[2021-09-08 04:45] LABS: Partial Thromboplastin Time 82.4 SECONDS (23.9-36.7)
--- NOTE | 2021-09-08 05:06 | PC.NURSE ---
Shift Note Frequent safety and comfort rounds continue. Orders and/or nursing care completed as indicated. Patient monitored for response to intervention and treatment(s). Education provided includes oxygen requirements. Patient needs reinforcement teaching. Patient had an uneventful shift, she remains on 15L oxygen via nasal cannula. She has no wounds or skin issues other than bruising noted to bilateral arms and stomach. Gomez catheter drained 1650 mls of urine overnight. Patient reports pain in stomach, PRN pain medication administered. LR and Argatroban infusing per protocol, please see MAR for infusion rates. Will continue to monitor.
--- NOTE | 2021-09-08 05:21 | PC.NURSE ---
Shift Note Frequent safety and comfort rounds continue. Orders and/or nursing care completed as indicated. Patient monitored for response to intervention and treatment(s). Education provided includes oxygen requirements. Patient needs reinforcement teaching. Patient had an uneventful shift, she remains on 15L oxygen via nasal cannula. She has no wounds or skin issues other than bruising noted to bilateral arms and stomach. Gomez catheter drained 1650 mls of urine overnight. Patient reports pain in stomach, PRN pain medication administered. Precedex and Argatroban infusing per protocol, please see MAR for infusion rates. Will continue to monitor.
--- NOTE | 2021-09-08 07:37 | P.CONIM_ITS ---
Providers/Reason For Consult Consulting Physician/Specialty*: Hematology. Reason for Consult*: Hemolytic anemia and thrombocytopenia. Requesting Physician: Raffy Hernandez Attending Physician: Raffy Hernandez Primary Care Provider: Philippe Garg MD History of Present Illness History of Present Illness Renetta Uriostegui is a 61 year old woman with COVID-19 virus pneumonia. She was confirmed to be COVID-19 positive on 08/09/2021 and she was initially managed as an outpatient. She became increasing short of breath and hypoxic, and on 08/18/2021 she was admitted to the hospital with acute hypoxic respiratory failure in association with COVID-19 virus pneumonia She required intubation and mechanical ventilation. Despite DVT prophylaxis, her clinical course was further complicated by pulmonary emboli, confirmed by CT pulmonary angiogram on 08/28/2021. She was managed at that time on a heparin drip, with subsequent transition to therapeutic Lovenox on 09/02/2021. Her management has also included remdesivir, Actemra, and steroid therapy. She was on antibiotic coverage with Levaquin and imipenem with addition of vancomycin on 09/03/2021. She also has been on treatment with fluconazole. I am asked to see her in regard to hemolytic anemia and thrombocytopenia. On reviewing her lab studies, her initial CBC showed hemoglobin 13.8 g with white blood cell count 9000 and platelet count 208,000. Her serum iron studies at that time did show low transferrin saturation at 4.8%. Her hemoglobin had been remained pretty much stable until 08/30/2021 with it dropped to 10.7 g. Thereafter it continued to decline to as low as 6.6 g on 09/03/2021. At that point her differential showed 6.0 nucleated RBCs per 100 white blood cells. Her LDH was significantly elevated at 1166/214 U/L and her haptoglobin was low at 10.0 mg/L, consistent with hemolysis. She was transfused PRBC, with no antibody detected on her type and crossmatch. During that time, her white blood cell count had become significantly elevated, increasing to a maximum of 58,000 on 09/03/2021. It has since then been declining, currently to 16,900. Her platelet count had initially become mildly elevated, increasing to 444,000 on 08/25/2021. Thereafter it began to decline. From 09/03 through 09/06/2021 it remained borderline low to mildly decreased, ranging from 128-143,000. As of yesterday the Lovenox was put on hold, and she began anticoagulation with argatroban. However, at that time the platelet count had already increased to 169,000 and today it is up to 189,000. Her hemoglobin today is up to 8.5 g, following PRBC transfusion yesterday. Her haptoglobin remains low at 10.0 mg/L. Her D-dimer is slightly high at 1.90. The fibrinogen level is 417 mg/dL compared to 286 mg/dL on 09/03/2021. Her LDH remains elevated, but it is down somewhat at 654 U/L. On my review of the blood smear, I do see a rare nucleated RBC, but I observed no schistocytes. There are occasional large platelets and there are some atypical lymphocytes. The patient was just extubated yesterday. She complains that she feels very tired. Her mouth is dry and sore. She is able to swallow. She has cough and she does have some shortness of breath, though she says her breathing is not bad. She is having pain in her left chest with coughing. She complains of having nausea and gas, and she has not had any bowel movement recently. She has an indwelling catheter. She has having some back pain. She does not complain of headache or dizziness, and she has no focal neurologic symptoms. She has been bruising a lot, but she says she always did that. Medications/Allergies Home Medications Medication Instructions Recorded Confirmed Last Taken Type alprazolam 1 mg tablet 1 mg PO QID PRN 08/05/19 08/18/21 08/17/21 History carisoprodol 350 mg tablet 350 mg PO TID PRN 08/05/19 08/18/21 08/17/21 History ergocalciferol (vitamin D2) 1,250 50,000 unit PO Q7D 08/05/19 08/18/21 08/17/21 History mcg (50,000 unit) capsule furosemide 40 mg tablet (Lasix) 40 mg PO DAILY PRN 08/05/19 08/18/21 08/17/21 History levothyroxine 25 mcg capsule 25 mcg PO DAILY 08/05/19 08/18/21 08/17/21 History losartan 50 mg tablet 50 mg PO DAILY 08/05/19 08/18/21 08/17/21 History montelukast 10 mg tablet 10 mg PO DAILY 08/05/19 08/18/21 08/17/21 History pantoprazole 40 mg tablet,delayed 40 mg PO DAILY 08/05/19 08/18/21 08/17/21 History release potassium chloride 10 mEq 10 meq PO DAILY 08/05/19 08/18/21 08/17/21 History capsule,extended release topiramate 100 mg tablet 100 mg PO DAILY 08/05/19 08/18/21 08/04/19 History trazodone 100 mg tablet 200 mg PO BEDTIME 08/05/19 08/18/21 08/17/21 History mecobalamin (vitamin B12) 1,000 1,000 mcg PO DAILY 12/17/19 08/18/21 08/17/21 History mcg chewable tablet (B12 Active) night splint #1 ea 02/05/20 08/18/21 Unknown Rx [place] ankle braces, bilateral #1 ea 05/14/20 08/18/21 Unknown Rx Custom functional orthotics #1 ea 06/16/20 08/18/21 Unknown Rx albuterol sulfate 90 mcg/actuation 2 puff INHALATION Q4H PRN 08/18/21 08/18/21 08/17/21 History aerosol inhaler (Ventolin HFA) ascorbic acid (vitamin C) 500 mg 500 mg PO BID 08/18/21 08/18/21 08/17/21 History tablet (Vitamin C) aspirin 81 mg capsule 81 mg PO DAILY 08/18/21 08/18/21 08/17/21 History cefuroxime axetil 250 mg tablet 250 mg PO BID 08/18/21 08/18/21 08/17/21 History fexofenadine 180 mg PO BID 08/18/21 08/18/21 08/17/21 History fexofenadine 180 mg tablet 180 mg PO BID 08/18/21 08/18/21 08/17/21 History ([place] Allergy) fluticasone propionate 50 1 spray INTRANASAL DAILY 08/18/21 08/18/21 08/17/21 History mcg/actuation nasal spray,suspension magnesium 250 mg tablet 500 mg PO DAILY 08/18/21 08/18/21 08/17/21 History vitamin E acetate 134 mg (200 134 mg PO DAILY 08/18/21 08/18/21 08/17/21 History unit) capsule Allergies Allergy/AdvReac Type Severity Reaction Status Date / Time Everything Allergy ALGY-Swell Uncoded 08/05/19 13:39 Lip/Tongue/Throat Steroids Allergy ALGY-Swell Uncoded 08/05/19 13:38 Lip/Tongue/Throat Current Medications Generic Name Dose Route Start Last Admin Trade Name Freq PRN Reason Stop Dose Admin Acetaminophen 650 mg 08/18/21 08:11 09/07/21 12:59 Acetaminophen 325 Mg Tablet PO 650 mg Q6H PRN Administration Mild/Mod Pain Or Temp >/= 101 Hydrocodone Bitart/Acetaminophen 1 tab 09/07/21 16:40 09/07/21 23:29 Hydrocodone-Acetaminophen 5-325 Mg Tablet PO 1 tab Q6H PRN Administration MODERATE PAIN Al Hydrox/Mg Hydrox/Simethicone 15 ml 08/18/21 11:07 08/24/21 21:57 Ckqd-Mpf-Khrazkovi-Pradeep 30 Ml Udc PO 15 ml Q6H PRN Administration INDIGESTION Artificial Tears 1 applic 08/29/21 08:30 08/30/21 16:27 Artificial Tears Op Oint 3.5 Gm EYE-BOTH 1 applic PRN PRN Administration DRY EYE(S) Ascorbic Acid 500 mg 08/28/21 09:00 09/07/21 08:22 Ascorbic Acid 500 Mg Tablet PO 500 mg DAILY LUISITO Administration Aspirin 81 mg 08/18/21 10:01 09/07/21 08:21 Aspirin 81 Mg Ec Tablet PO 81 mg DAILY LUISITO Administration Benzocaine 1 each 08/23/21 10:17 09/07/21 22:43 Cetylpyridinium Lozenge MUCOUS MEM 1 each Q2H PRN Administration SORE THROAT Benzonatate 200 mg 08/20/21 15:00 08/30/21 07:44 Benzonatate 100 Mg Capsule PO Not Given TID LUISITO Bisacodyl 10 mg 09/01/21 09:00 09/07/21 08:21 Bisacodyl 5 Mg Tablet PO 10 mg DAILY LUISITO Administration Protocol Budesonide 0.5 mg 08/20/21 20:00 09/07/21 19:47 Budesonide 0.5 Mg/2 Ml Neb INHALATION 0.5 mg BID.RESPIRATORY LUISITO Administration Ferrous Gluconate 324 mg 08/18/21 18:00 09/07/21 17:10 Ferrous Gluconate 324 Mg Tablet PO 324 mg BIDWM LUISITO Administration Furosemide 40 mg 09/07/21 08:00 09/07/21 20:33 Furosemide 10 Mg/Ml Sdv 4ml IVP 40 mg Q12H LUISITO Administration Propofol 1,000 mg in 100 mls @ 0 mls/hr 08/29/21 08:30 09/07/21 16:05 Diprivan IV Infused .Q0M LUISITO Titration Protocol Per Protocol Midazolam HCl 100 mg/ Sodium 100 mls @ 0 mls/hr 08/29/21 08:30 09/06/21 02:30 Chloride IV Infused .Q0M LUISITO Titration Protocol Per Protocol Cisatracurium Besylate 100 mg/ 100 mls @ 0 mls/hr 08/29/21 08:30 09/02/21 19:00 Sodium Chloride IV 0 mcg/kg/min .Q0M LUISITO 0 mls/hr Titration Protocol Per Protocol Fentanyl 2,500 mcg/ Sodium 250 mls @ 0 mls/hr 08/29/21 08:45 09/07/21 12:45 Chloride IV Infused .Q0M LUISITO Titration Protocol Per Protocol Norepinephrine Bitartrate 8 mg 508 mls @ 0 mls/hr 09/02/21 19:00 09/03/21 10:00 / Dextrose IV Infused .Q0M LUISITO Titration Protocol Per Protocol Dexmedetomidine HCl 1,000 mcg/ 260 mls @ 0 mls/hr 09/04/21 18:00 09/07/21 22:00 Sodium Chloride IV 1.2 mcg/kg/hr .Q0M LUISITO 33.57 mls/hr Administration Protocol Per Protocol Argatroban 250 mg/ Sodium 252.5 mls @ 0 mls/hr 09/07/21 21:00 09/07/21 20:50 Chloride IV 2 mcg/kg/min .Q0M LUISITO 13.04 mls/hr Administration Protocol Per Protocol Ipratropium [place] 0.5 mg 08/22/21 16:00 09/08/21 04:15 Ipratropium 0.5 Mg/2.5 Ml Neb INHALATION 0.5 mg Q4H.RESPIRATORY LUISITO Administration Lactulose 10 gm 08/18/21 11:07 09/07/21 23:29 Lactulose Oral Liq 20 Gm/30 Ml Udc PO 10 gm DAILY PRN Administration Constipation (see protocol) Protocol Lanolin 1 applic 08/24/21 13:52 08/31/21 07:58 Lanolin Oint 7 Gm TOPICAL 1 applic PRN PRN Administration DRYNESS Levalbuterol HCl 0.63 mg 08/22/21 13:37 09/07/21 15:07 Levalbuterol 0.63 Mg/3 Ml Neb INHALATION 0.63 mg Q4H.RESPIRATORY PRN Administration SHORTNESS OF BREATH Levalbuterol HCl 0.63 mg 08/22/21 16:00 09/08/21 04:15 Levalbuterol 0.63 Mg/3 Ml Neb INHALATION 0.63 mg Q4H.RESPIRATORY LUISITO Administration Levothyroxine Sodium 25 mcg 08/18/21 11:00 09/07/21 08:21 Levothyroxine 25 Mcg Tablet PO 25 mcg DAILY LUISITO Administration Magnesium Hydroxide 30 ml 08/22/21 13:39 09/04/21 08:36 Magnesium Hydroxide 30 Ml Udc PO 30 ml DAILY PRN Administration CONSTIPATION Methylprednisolone Sodium Succinate 30 mg 09/07/21 09:00 09/07/21 08:21 Methylprednisolone Sod Succ 40 Mg/Ml Inj IVP 30 mg DAILY LUISITO Administration Montelukast Sodium 10 mg 08/19/21 09:00 09/07/21 08:21 Montelukast Sodium 10 Mg Tablet PO 10 mg DAILY LUISITO Administration Ondansetron HCl 4 mg 08/18/21 11:07 08/20/21 19:33 Ondansetron 2 Mg/Ml Sdv 2 Ml IVP 4 mg Q8H PRN Administration vomiting, or N/V if npo Pantoprazole Sodium 40 mg 09/03/21 09:35 09/07/21 08:21 Pantoprazole 40 Mg Sdv IVP 40 mg DAILY LUISITO Administration Quetiapine Fumarate 25 mg 09/03/21 18:10 09/07/21 17:10 Quetiapine 25 Mg Tablet PO 25 mg BID LUISITO Administration Senna/Docusate Sodium 1 tab 08/23/21 09:00 09/07/21 08:21 Sennosides-Docusate Tablet PO 1 tab DAILY LUISITO Administration Simethicone 80 mg 08/28/21 14:57 08/28/21 19:33 Simethicone 80 Mg Chew PO 80 mg TID PRN Administration gas Topiramate 100 mg 08/18/21 10:45 09/07/21 08:22 Topiramate 100 Mg Tablet PO 100 mg DAILY LUISITO Administration Zinc Gluconate 50 mg 08/18/21 10:01 09/07/21 08:21 Zinc Gluconate 50 Mg Tablet PO 50 mg DAILY LIUSITO Administration PFSH Acute PFSH: Medical History Anxiety HTN (hypertension) Hypothyroidism Kidney disease Spinal stenosis Social History Smoking and tobacco status: never smoked Alcohol intake: never Caregiver/support person: Yes Lives independently: Yes Household members: spouse Housing: House Marital status: Vitals/I&O/Wt Last Vital Signs Temp 100.4 F H 09/08/21 04:00 Pulse 88 09/08/21 06:15 Resp 25 H 09/08/21 06:15 BP 152/85 09/08/21 06:15 Pulse Ox 95 09/08/21 06:15 09/07/21 09/08/21 09/08/21 22:59 06:59 14:59 Intake Total 360 / 1344.143 500 / 1844.143 Output Total 350 / 2350 1650 / 4000 Balance 10 / -1005.857 -1150 / -2155.857 Weight last 48 hrs Weight 104.355 kg Weight 107.558 kg Physical Exam Narrative: On exam she appears somewhat weak generally. Sclera are nonicteric . Mouth is dry, but there are no lesions noted in the oral cavity. Neck shows no mass or thyromegaly. There is no cervical, clavicular, or axillary lymphadenopathy noted. Lungs sound clear at this time. Heart rhythm is regular. There is no murmur, gallop, or rub noted. Abdomen is mildly distended and tympanic. Liver and spleen do not appear enlarged. There is no abdominal mass or ascites noted. She has slight lower extremity edema. There are multiple ecchymoses on both arms. The left foot feels slightly cool compared to the right. Dorsalis pedis pulses are palpable bilaterally, but diminished on the left. There are no focal neurologic deficits noted. Urinary Catheter Management: Gomez: Cath Placed During This Visit: yes Reason for Continuing Indwelling Catheter: Accurate Measurement of Urinary Output in Critically Ill Patients Urinary Catheter Date of Insertion: 08/29/21 Urinary Catheter Time of Insertion: 01:18 Data : 09/08/21 04:13 09/08/21 04:13 Micro: Microbiology 09/07/21 11:00 Gram Stain - Final Sputum - Endotracheal Tube Aspirate 09/02/21 11:16 Blood Culture - Final Blood Coagulase negativ staphylococc 09/02/21 11:18 Blood Culture - Final Blood NO GROWTH AFTER 5 DAYS 09/07/21 07:50 Blood Culture - Preliminary Blood SPECIMEN COLLECTED 09/07/21 07:50 Blood Culture - Preliminary Blood SPECIMEN COLLECTED A&P Assessment and plan (1) Hemolytic anemia: Status: Acute (2) Acquired thrombocytopenia: Status: Acute (3) Pulmonary embolism associated with COVID-19: Status: Acute (4) Acute respiratory failure with hypoxia: Status: Acute (5) Hypothyroidism: Status: Acute Plan Patient with acute pulmonary emboli in association with COVID-19 virus pneumonia and acute respiratory failure. She was initially managed on an IV heparin drip with subsequent transition to Lovenox. She then developed evidence of hemolytic anemia. She also developed mild thrombocytopenia, which already appears to be resolving. The underlying cause is uncertain. However, as there was no antibody detected on her crossmatch procedure, the hemolysis appears to be nonimmune. There also appears to be no evidence of DIC, and microangiopathic hemolysis (TTP) also appears to be unlikely, as I did not see any schistocytes on the blood smear. It is also extremely unlikely that she has heparin-induced thrombocytopenia, as the platelet count was already recovering when the Lovenox was discontinued. I think the thrombocytopenia would more likely have been due to the vancomycin. At this point I would just continue to monitor her blood counts, and she can be transfused PRBC again as needed. I would recheck her serum iron studies, and if there is continued evidence of iron deficiency, consideration should be given to parenteral iron replacement. In the meantime, as long as she is able to take oral medication, her anticoagulation can be transitioned to rivaroxaban or apixaban. 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
[2021-09-08] MEDS: budesonide 0.5 mg/2 mL Neb INHALATION ×2 (07:42→21:30)
--- NOTE | 2021-09-08 08:18 | XR_ITS ---
WS: [id number] PORTABLE CHEST HISTORY: pneumonia COMPARISON: 09/07/2021 Endotracheal tube and nasogastric tubes have been removed. No change in position of the RIGHT IJ cent ral line. Lung volumes are moderately decreased. Coarse thick heterogeneous opacifications. There has been a sl ight improvement in aeration in the RIGHT lung. No improvement on the LEFT. No pleural effusion or pn eumothorax. Cardiac size: Mildly enlarged cardiac silhouette. Cardiac silhouette is partially obscured by the air space disease in the LEFT lung. Mediastinum/Aorta: Ectatic aorta with mild dilatation. Resection of the distal RIGHT clavicle. XR/XR chest 1V portable [id number] IMPRESSION: 1. Interval removal of the nasogastric and endotracheal tubes. 2. Slight improvement in aeration throughout the RIGHT lung. 3. Continued opacifications throughout the LEFT lung are diffuse and unchanged .
--- NOTE | 2021-09-08 08:38 | PC.SOCIAL ---
IMM Update IMM updated with patient's . Verbalized an understanding. Initialled, dated, timed, and placed in chart.
[2021-09-08] MEDS: levothyroxine 25 mcg Tablet PO (09:51)
[2021-09-08] MEDS: acetaminophen 325 mg Tablet 650 MG PO (09:51)
[2021-09-08] MEDS: FUROsemide 10 mg/mL SDV 4mL 40 MG IVP ×2 (09:51→20:19)
[2021-09-08] MEDS: topiramate 100 mg Tablet PO (09:51)
[2021-09-08] MEDS: quetiapine 25 mg Tablet PO ×2 (09:51→18:43)
[2021-09-08] MEDS: aspirin 81 mg EC Tablet PO (09:51)
[2021-09-08] MEDS: pantoprazole 40 mg SDV IVP (09:52)
--- NOTE | 2021-09-08 10:21 | USR_ITS ---
PROCEDURE INFORMATION: Exam: US Duplex Left Lower Extremity Arteries Or Arterial Bypass Grafts Exam date and time: 09/08/2021 10:21 AM Age: 61 years old Clinical indication: Leg, upper and leg, lower; Patient HX: C/O cool left foot, clinically non-detectible pedal pulses, patient complaining of left calf and thigh pain. ; Additional info: Cool L foot, non-palpable pulse, PT sitting in chair TECHNIQUE: Imaging protocol: Left Real-time duplex scan of the arteries or arterial bypass grafts of the left lower extremity with 2-D coughlin scale, color Doppler flow and spectral waveform analysis. Images documented and saved. COMPARISON: MR ankle LT wo con* [id number] 05/04/2020 1:28 PM FINDINGS: Left common femoral artery: No occlusion or significant stenosis. Normal waveform. Left superficial femoral artery: No occlusion or significant stenosis. Normal waveform. Left popliteal artery: No occlusion or significant stenosis. Normal waveform. Left calf/foot arteries: No occlusion or significant stenosis in the visualized arteries. Normal waveforms. Dorsalis pedis artery is patent. US/CV arterial duplex [facility] [id number] IMPRESSION: No stenosis or occlusion.
[2021-09-08] MEDS: lidocaine 1% 5 ML in potassium chloride premix 100 ML 50 ML IV (10:54)
[2021-09-08] MEDS: HYDROcodone-acetaminophen 5-325 mg Tablet 1 TAB PO ×2 (12:38→19:43)
[2021-09-08] MEDS: alum-mag-hydroxide-sime 30 mL UDC 15 ML PO (12:38)
[2021-09-08] MEDS: cetylpyridinium Lozenge 1 EACH MUCOUS MEM (12:38)
[2021-09-08] MEDS: apixaban 5 mg Tablet 10 MG PO (16:11)
[2021-09-08] MEDS: ferrous gluconate 324 mg Tablet PO (18:42)
[2021-09-08] MEDS: lactulose oral liq 20 gm/30 mL UDC 10 GM PO (18:43)
[2021-09-08] MEDS: simethicone 80 mg Chew PO (20:20)
--- NOTE | 2021-09-08 21:27 | P.PN_ITS ---
Subjective Subjective: Reports some discomfort with swallowing water due to sore mouth. Breathing comfortable with the amount of oxygen she is on. Denies chest pain or pressure. No nausea. No bowel movement so far. Some bloating. Vitals/I&O/Wt Last Vital Signs Temp 100.4 F H 09/08/21 20:00 Pulse 88 09/08/21 20:45 Resp 36 H 09/08/21 20:45 BP 123/75 09/08/21 20:30 Pulse Ox 92 09/08/21 20:45 09/08/21 09/08/21 09/08/21 06:59 14:59 22:59 Intake Total 500 / 1844.143 365 / 365 252.5 / 617.5 Output Total 1650 / 4000 1400 / 1400 Balance -1150 / -2155.857 365 / 365 -1147.5 / -782.5 Weight last 48 hrs Weight 104.355 kg Weight 107.558 kg Physical Exam Const: COMMON NORMALS: patient oriented x3 and alert GENERAL APPEARANCE: cooperative ORIENTATION/CONSCIOUSNESS: Yes awake OTHER: Weak HENMT: COMMON NORMALS: oropharynx normal Neck/C-Spine: COMMON NORMALS: no JVD Resp: COMMON NORMALS: normal respiratory effort AUSCULTATION: crackles Laterality: bilateral Cardio: COMMON NORMALS: no JVD, regular rhythm, S1 normal heart sound present, S2 normal heart sound present and No murmurs present (Cardio) RHYTHM: regular rhythm HEART SOUNDS: S1 normal heart sound present and S2 normal heart sound present GI: COMMON NORMALS: Normal to inspection, nondistended, normoactive bowel sounds present, Soft to palpation and non-tender PALPATION: Yes Soft to palpation Extremity: COMMON NORMALS: no joint enlargement and no pedal edema OTHER: Cooler L foot Neuro: COMMON NORMALS: patient oriented x3 and moves all extremities SENSORIUM/ORIENTATION: Yes alert Skin: COMMON NORMALS: no rashes or lesions noted GENERAL SKIN EXAM: no rashes or lesions noted Urinary Catheter Management: Gomez: Cath Placed During This Visit: yes Reason for Continuing Indwelling Catheter: Accurate Measurement of Urinary Output in Critically Ill Patients Urinary Catheter Date of Insertion: 08/29/21 Urinary Catheter Time of Insertion: 01:18 Data : 09/08/21 04:13 09/08/21 04:13 Micro: Microbiology 09/07/21 07:50 Blood Culture - Preliminary Blood NEGATIVE TO DATE 09/07/21 07:50 Blood Culture - Preliminary Blood NEGATIVE TO DATE 09/07/21 11:00 Gram Stain - Final Sputum - Endotracheal Tube Aspirate A&P Assessment and plan (1) Acute respiratory distress syndrome (ARDS) due to 2019 novel coronavirus: Down to 8 L of oxygen, this is improving further down to 6 L nasal cannula oxygen requirement. Continue oxygen support. On Precedex drip, wean down slowly given she has been on it for prolonged period of time to avoid withdrawal. Once off Precedex drip can transfer out of ICU. Wean down oxygen support as tolerating. Mobilize with therapy. On standing Lasix for now, eventual improvement. Crackles resolved. Reassess volume status. Weight 104 kg compared to 92 kg on admission. Wean down and off steroids given not needed for hemolytic anemia Off empiric antibiotics. Stopped fluconazole as low likelyhood of candidal pneumonia. Follow cultures. Due to persistent low-grade fevers cultures repeated 09/07 with blood cultures, UA, sputum cultures requested. Very deconditioned, very weak, mobilize with PT. Post discharge planning. Status: Acute (2) COVID-19: Wean down oxygen support as tolerating. Completed course of Decadron. Remdesivir. Received Actemra 08/19. D-dimer level improved. Anticoagulation changed to p.o. for PE. Status: Acute (3) Hemolytic anemia: Appreciate hematology assessment and recommendations. Wean down and off st eroid. At this time no evidence of DIC, no evidence of TTP, no evidence of autoimmune hemolytic anemia. Monitor hemoglobin. Transfuse as needed. Repeat transferrin saturation. Consider IV iron if needed. Low likelihood of HIT per heme, but already also transition to p.o. anticoagulation. Follow-up HIT antibody, MERRITT. Status: Acute (4) Septic shock: Off pressors. Status: Acute (5) Pulmonary embolism associated with COVID-19: Transitioned from argatroban to Eliquis. Monitor blood counts in the setting of concomitant hemolytic anemia Status: Acute (6) Ileus: No bowel movement so far despite bowel regimen. Enema requested. Trial of oral intake. Dysphagia diet as per ST recommendations. Status: Acute (7) HTN (hypertension): Status: Acute (8) Hypothyroidism: Continue with home dose of levothyroxine. TSH appreciated. Status: Acute (9) Anxiety: Continue home dose of topiramate, trazodone. Status: Acute (10) Goals of care, counseling/discussion: Status: Acute (11) Nonpalpable pulse: Left foot. Arterial duplex. Foot does not appear mottled or cyanotic. No loss of sensation or motor function. Status: Acute Attestations Medical Necessity Statement*: Continue admission for hypoxic respiratory failure with severe COVID-19, hemolytic anemia, in the setting of PE requiring anticoagulation, advancement of diet, mobilization, post discharge planning. Coding Level of Care Code Acute Residential Care Facility Manager for [facility] Fwd Diagnoses Acute respiratory distress syndrome (ARDS) due to 2019 novel coronavirus U07.1; J80 COVID-19 U07.1 Hemolytic anemia D58.9 Septic shock A41.9; R65.21 Pulmonary embolism associated with COVID-19 U07.1; I26.99 Ileus K56.7 HTN (hypertension) I10 Hypothyroidism E03.9 Anxiety F41.9 Goals of care, counseling/discussion Z71.89 Nonpalpable pulse Z78.9
[2021-09-09] VITALS (105 sets, daily range): BP systolic 95–173; BP diastolic 57–121; PULSE 82–134; RESP 18–43; TEMP 36.9–37.8; O2SAT 71–96; BMI 37.0
[2021-09-09] MEDS: zolpidem 5 mg Tablet PO
[2021-09-09 04:22] LABS: Basophils % 0.1 %; Eosinophils # 0.1 10^3/uL (0.0-0.8); Eosinophils % 0.8 %; Hematocrit 25.4 % (37.0-47.0); Hemoglobin 8.3 g/dL (11.5-15.3); Lymphocytes # 1.5 10^3/uL (0.8-4.8); Lymphocytes % 8.8 %; Mean Corpuscular HGB Conc 32.7 g/dL (30.0-36.0); Mean Corpuscular Hemoglobin 30.9 pg (28.0-34.0); Mean Corpuscular Volume 94.4 fl (81-99); Mean Platelet Volume 9.9 fL (7.4-10.4); Monocytes # 1.8 10^3/uL (0.2-0.9); Monocytes % 10.4 %; Neutrophils # 13.32 10^3/uL (1.8-7.7); Neutrophils % 77.6 %; Nucleated Red Blood Cells # 0.1 /100WBC; Nucleated Red Blood Cells % 0.5 %; Platelet Count 272 10^3/cmm (130-400); Red Blood Count 2.69 10^6/uL (4.1-5.3); Red Cell Distribution Width 17.5 % (12.1-15.1); White Blood Count 17.2 10^3/uL (4.0-10.0)
--- NOTE | 2021-09-09 04:28 | PC.NURSE ---
Shift Note Frequent safety and comfort rounds continue. Orders and/or nursing care completed as indicated. Patient monitored for response to intervention and treatment(s). Education provided includes frequent turning/ repositioning to prevent skin breakdown. Patient needs reinforcement teaching. Patient had an uneventful shift, she remains on 6L oxygen via nasal cannula. Precedex is infusing, please see MAR for infusion rate. Patient reported pain throughout shift, PRN medication was administered. Gomez catheter drained 1275 mls of urine overnight. No wounds or skin issues noted at this time other than bruising to bilateral arms, left lower leg, and stomach. Patient had several bowel movements overnight, states that she feels better afterwards. Will continue to monitor.
[2021-09-09 04:40] LABS: Alanine Aminotransferase 40 U/L (0-33); Alkaline Phosphatase 72 IU/L (35-105); Anion Gap 13.8 (5-19); Aspartate Amino Transferase 31 U/L (0-32); Blood Urea Nitrogen 16 mg/dL (6-20); Calcium 8.5 mg/dL (8.5-10.5); Carbon Dioxide 26 mmol/L (22-29); Chloride 106 mmol/L (98-107); Globulin 2.6 g/dL (1.3-4.6); Glomerular Filtration Rate 227.7 mL/min (90-130); Glucose 134 mg/dL (65-115); Osmolality Calculated 299 mOsm/kg (285-295); Sodium 143 mmol/L (136-145); Total Bilirubin 1.1 mg/dL (0.15-1.2); Total Protein 5.6 g/dL (6.6-8.7)
[2021-09-09] MEDS: acetaminophen 325 mg Tablet 650 MG PO (04:42)
[2021-09-09] MEDS: apixaban 5 mg Tablet 10 MG PO ×2 (04:42→16:48)
[2021-09-09 04:55] LABS: Potassium 2.8 mmol/L (3.5-5.1)
[2021-09-09 05:04] LABS: Iron 67 ug/dL (37-145); Percent Saturation 39.4 % (20-50); Total Iron Binding Capacity 170 mcg/dl; Unsaturated Iron Binding 103 ug/dL (112-347)
--- NOTE | 2021-09-09 05:23 | PC.NURSE ---
Critical Lab Patient potassium critically low, informed hospitalist. Orders received to administer potassium chloride IV.
[2021-09-09] MEDS: lidocaine 1% 5 ML in potassium chloride premix 100 ML 25 ML IV ×2 (05:32→07:50)
[2021-09-09 05:40] LABS: Magnesium 2.3 mg/dL (1.7-2.3)
[2021-09-09] MEDS: aspirin 81 mg EC Tablet PO (07:40)
[2021-09-09] MEDS: ferrous gluconate 324 mg Tablet PO ×2 (07:40→16:48)
[2021-09-09] MEDS: zinc gluconate 50 mg Tablet PO (07:40)
[2021-09-09] MEDS: montelukast sodium 10 mg Tablet PO (07:40)
[2021-09-09] MEDS: quetiapine 25 mg Tablet PO ×2 (07:41→16:47)
[2021-09-09] MEDS: ascorbic acid 500 mg Tablet PO (07:41)
[2021-09-09] MEDS: topiramate 100 mg Tablet PO (07:41)
[2021-09-09] MEDS: HYDROcodone-acetaminophen 5-325 mg Tablet 1 TAB PO ×2 (07:41→19:56)
[2021-09-09] MEDS: levothyroxine 25 mcg Tablet PO (07:41)
[2021-09-09] MEDS: FUROsemide 10 mg/mL SDV 4mL 40 MG IVP (07:42)
[2021-09-09] MEDS: pantoprazole 40 mg SDV IVP (07:44)
[2021-09-09] MEDS: budesonide 0.5 mg/2 mL Neb INHALATION ×2 (09:03→19:40)
[2021-09-09] MEDS: levalbuterol 0.63 mg/3 mL Neb INHALATION ×5 (09:03→23:51)
[2021-09-09] MEDS: ipratropium 0.5 mg/2.5 mL Neb INHALATION ×5 (09:03→23:51)
--- NOTE | 2021-09-09 09:06 | P.PN_ITS ---
Subjective Subjective: -Patient seen at bedside - -she was extubated successfully on 09/07/2021 and was down to 8 L yesterday -Today she was placed out of bed to chair and temporarily has to increase her FiO2 to 12 L nasal cannula -Yesterday night she had 5-6 bowel movements -Reported being tired and reported coughing out blood clots -Encourage physical therapy, incentive spirometry -Continues to have low-grade fevers, HIT work-up pending, currently patient is on Eliquis -Other labs and imaging reviewed Medications: Reviewed: Yes Vitals/I&O/Wt Last Vital Signs Temp 100.1 F H 09/09/21 04:00 Pulse 134 H 09/09/21 06:16 Resp 34 H 09/09/21 06:16 BP 153/95 09/09/21 06:16 Pulse Ox 80 L 09/09/21 06:16 09/08/21 09/09/21 09/09/21 22:59 06:59 14:59 Intake Total 252.5 / 617.5 460 / 1077.5 57.5 / 57.5 Output Total 1400 / 1400 1275 / 2675 Balance -1147.5 / -782.5 -815 / -1597.5 57.5 / 57.5 Weight last 48 hrs Weight 229 lb 8 oz Weight 230 lb 1 oz Physical Exam Narrative: General: alert, NAD, appears tired HEENT: conj clear, EOMI, PERRL, mmm, Neck: supple, no meningismus Heme: no cervical LAP Pulmonary: CTAB, no wheezing, rhonchi, crackles Cardiovascular: rrr, nl s1s2, no mrg Abdomen: soft, nt, nd, no r/g, bs+ Extremities: pulses +, no edema, no c/c : no CVA tenderness Skin: intact, no rash MSK: no back or neck pain Neurologic: grossly intact LDA: # CVC: Right IJ 08/30/2021 Urinary Catheter Management: Gomez: Cath Placed During This Visit: yes Reason for Continuing Indwelling Catheter: Accurate Measurement of Urinary Output in Critically Ill Patients Urinary Catheter Date of Insertion: 08/29/21 Urinary Catheter Time of Insertion: 01:18 Data : 09/09/21 03:57 09/09/21 03:57 Other Labs: Radiology Impressions Chest CTA 08/28/21 08:21 IMPRESSION: 1. Multiple small pulmonary emboli in 1st order through segmental branches of the right pulmonary artery. 2. Bilateral pneumonia, appears worsened when compared to the prior study. COMMENTS: Consistent with the [employer]'s Incidental Findings Committee white paper (J Am Margie Radiol 2018): Any incidental renal lesion less than 1 cm or classified as too small to characterize, or any incidental cystic renal lesion characterized as simple-appearing, is likely benign. No follow-up imaging is recommended for these lesions per consensus recommendations based on imaging criteria. Chest/Abdomen/Pelvis CT 09/03/21 09:34 IMPRESSION: There is been some clearing of the diffuse lung opacities compared to the previous CT scan however significant abnormality remains. Chest otherwise unchanged. No acute abnormality identified in the abdomen or pelvis. Chest X-Ray 09/08/21 08:18 IMPRESSION: 1. Interval removal of the nasogastric and endotracheal tubes. 2. Slight improvement in aeration throughout the RIGHT lung. 3. Continued opacifications throughout the LEFT lung are diffuse and unchanged. Duplex Scan Lower Extremity Artery 09/08/21 10:21 IMPRESSION: No stenosis or occlusion. Laboratory Results WBC 17.2 10^3/uL (4.0-10.0) H 09/09/21 03:57 Corrected WBC 54.7 10^3/cmm (4.8-10.8) H 09/03/21 03:40 RBC 2.69 10^6/uL (4.1-5.3) L 09/09/21 03:57 Hgb 8.3 g/dL (11.5-15.3) L 09/09/21 03:57 Hct 25.4 % (37.0-47.0) L 09/09/21 03:57 MCV 94.4 fl (81-99) 09/09/21 03:57 MCH 30.9 pg (28.0-34.0) 09/09/21 03:57 MCHC 32.7 g/dL (30.0-36.0) 09/09/21 03:57 RDW 17.5 % (12.1-15.1) H 09/09/21 03:57 Plt Count 272 10^3/cmm (130-400) D 09/09/21 03:57 MPV 9.9 fL (7.4-10.4) 09/09/21 03:57 Neut % (Auto) 77.6 % 09/09/21 03:57 Lymph % (Auto) 8.8 % 09/09/21 03:57 [place] % (Auto) 10.4 % 09/09/21 03:57 Eos % (Auto) 0.8 % 09/09/21 03:57 Baso % (Auto) 0.1 % 09/09/21 03:57 Reticulocyte % (Auto) 7.6 % (0.5-2.0) H 09/08/21 04:13 Neut # (Auto) 13.32 10^3/uL (1.8-7.7) H 09/09/21 03:57 Lymph # (Auto) 1.5 10^3/uL (0.8-4.8) 09/09/21 03:57 [place] # (Auto) 1.8 10^3/uL (0.2-0.9) H 09/09/21 03:57 Eos # (Auto) 0.1 10^3/uL (0.0-0.8) 09/09/21 03:57 Baso # (Auto) 0.0 10^3/uL (0.0-0.1) 09/09/21 03:57 Nucleated RBC % (auto) 0.5 % 09/09/21 03:57 Total Counted 100 (0-100) 09/06/21 15:45 Atypical Lymphs % 0.0 % (0-5) 09/06/21 15:45 Absolute Neutrophils 13.7 10^3/cmm (1.4-6.5) H 09/06/21 15:45 Segmented Neutrophils 67 % 09/06/21 15:45 Abs Segm Neuts (Man) 11.7 10/cmm (1.6-7.1) H 09/06/21 15:45 Band Neutrophils 11.0 % 09/06/21 15:45 Abs Band Neuts (Man) 1.9 10^3/cmm (0.0-1.2) H 09/06/21 15:45 Absolute Lymphocytes 0.9 10^3/cmm (1.2-3.4) L 09/06/21 15:45 Lymphocytes (Manual) 5 % 09/06/21 15:45 Monocytes (Manual) 5.0 % 09/06/21 15:45 Absolute Monocytes 0.9 10^3/cmm (0.1-0.6) H 09/06/21 15:45 Eosinophils (Manual) 2 % 09/06/21 15:45 Absolute Eosinophils 0.3 10^3/cmm (0.0-0.7) 09/06/21 15:45 Basophils (Manual) 0.0 % 09/06/21 15:45 Absolute Basophils 0.0 10^3/cmm (0.0-0.2) 09/06/21 15:45 Metamyelocytes 8.0 % 09/06/21 15:45 Myelocytes 2.0 % 09/06/21 15:45 Nucleated RBCs 3.0 /100WBC (0-1) H 09/05/21 17:11 Nucleated RBCs # 0.1 /100WBC 09/09/21 03:57 Differential Comment Cancelled 08/29/21 11:00 Smudge Cells Trace 09/06/21 15:45 Platelet Estimate Normal (Normal) 09/06/21 15:45 Giant Platelets 1+ H 09/05/21 17:11 Polychromasia 1+ H 09/06/21 15:45 Hypochromasia 1+ H 09/06/21 15:45 Poikilocytosis Trace 09/06/21 15:45 Anisocytosis 2+ H 09/06/21 15:45 Macrocytosis Trace 09/06/21 15:45 Retic Production Index 4.81 09/08/21 04:13 Haptoglobin 10.0 mg/L (30-200) L 09/08/21 04:13 PT 33.80 SECONDS (12.1-14.9) H 09/08/21 04:13 INR 3.27 (0.8-1.2) H 09/08/21 04:13 APTT 82.4 SECONDS (23.9-36.7) H 09/08/21 04:13 Fibrinogen 417 mg/dL (174-498) 09/08/21 04:13 Fibrin Degrad Products Pos, >=40 ug/mL (NEG) H 09/08/21 04:13 D-Dimer 1.90 ug/mIFEU (0-0.59) H 09/08/21 04:13 Specimen Type Arterial 09/07/21 04:00 Sample Site Radial, right 09/07/21 04:00 ABG pH 7.49 (7.35-7.45) H 09/07/21 04:00 ABG pCO2 33.4 mmHg (35-45) L 09/07/21 04:00 ABG pO2 62.4 mmHg (80.0-100.0) L 09/07/21 04:00 ABG HCO3 25.3 mmol/L (22-26) 09/07/21 04:00 ABG O2 Saturation 94.1 09/07/21 04:00 ABG Base Excess 1.9 mmol/L (-2.0-2.0) 09/07/21 04:00 Suraj Test Pos 09/07/21 04:00 A-a O2 Gradient 23.8 mmHg (5-10) H 09/07/21 04:00 Hematocrit 22.8 % (37-47) L 09/07/21 04:00 Hgb O2 Saturation 91.2 % (95-100) L 09/07/21 04:00 Carboxyhemoglobin 2.0 %THgb (0.4-20.1) 09/07/21 04:00 Methemoglobin 1.0 % (0.4-1.5) 09/07/21 04:00 Total Hemoglobin 7.4 g/dL (12-16) L 09/07/21 04:00 Sodium 142.0 mmol/L (131-143) 09/07/21 04:00 Potassium 3.1 mmol/L (3.5-5.0) L 09/07/21 04:00 Glucose 123.0 mg/dL (70-115) H 09/07/21 04:00 Ionized Calcium 1.2 mmol/L (1.1-1.4) 09/07/21 04:00 O2 Delivery Device Vent 09/07/21 04:00 O2 Liters/Min 50.0 % 08/28/21 17:41 FiO2 40.0 % 09/07/21 04:00 Tidal Volume 0.40 09/07/21 04:00 PEEP 6.0 cmH20 09/07/21 04:00 Client Account Specialist ID [email or web address] 09/07/21 04:00 Sodium 143 mmol/L (136-145) 09/09/21 03:57 Potassium 2.8 mmol/L (3.5-5.1) L* 09/09/21 03:57 Chloride 106 mmol/L (98-107) 09/09/21 03:57 Carbon Dioxide 26 mmol/L (22-29) 09/09/21 03:57 Anion Gap 13.8 (5-19) 09/09/21 03:57 BUN 16 mg/dL (6-20) 09/09/21 03:57 Creatinine 0.3 mg/dL (0.5-0.9) L 09/09/21 03:57 GFR Calculation 227.7 mL/min (90-130) H 09/09/21 03:57 Glucose 134 mg/dL (65-115) H 09/09/21 03:57 POC Glucose 131 mg/dL (70-110) H 08/29/21 11:26 Calculated Osmolality 299 mOsm/kg (285-295) H 09/09/21 03:57 Lactic Acid 1.3 mmol/L (0.5-2.2) 08/18/21 06:49 Calcium 8.5 mg/dL (8.5-10.5) 09/09/21 03:57 Phosphorus 2.7 mg/dL (2.5-4.5) 08/19/21 04:08 Magnesium 2.3 mg/dL (1.7-2.3) 09/09/21 03:57 Iron 67 ug/dL (37-145) 09/09/21 03:57 TIBC 170 mcg/dl 09/09/21 03:57 % Saturation 39.4 % (20-50) 09/09/21 03:57 Unsat Iron Binding 103 ug/dL (112-347) L 09/09/21 03:57 Total Bilirubin 1.1 mg/dL (0.15-1.2) 09/09/21 03:57 AST 31 U/L (0-32) 09/09/21 03:57 ALT 40 U/L (0-33) H 09/09/21 03:57 Alkaline Phosphatase 72 IU/L (35-105) 09/09/21 03:57 Lactate Dehydrogenase 654 U/L (135-214) H 09/08/21 04:13 Creatine Kinase 256 U/L (26-192) H 08/30/21 04:23 Troponin T Gen 5 ng/L 31 ng/L (0-10) H 08/27/21 07:25 C-Reactive Protein 25.5 mg/L (0.0-4.9) H 09/05/21 03:39 NT-Pro-B Natriuret Pep 226 pg/mL (0-125) H 08/18/21 05:41 NT-Pro-B Natriuret Pep 242 pg/mL (0-125) H 08/18/21 05:41 Total Protein 5.6 g/dL (6.6-8.7) L 09/09/21 03:57 Albumin 3.0 g/dL (3.5-5.2) L 09/09/21 03:57 Globulin 2.6 g/dL (1.3-4.6) 09/09/21 03:57 Triglycerides 174 mg/dL (0-150) H 08/30/21 04:23 Procalcitonin 0.38 ng/mL (0-0.5) 09/03/21 03:40 TSH 1.07 uIU/mL (0.27-4.20) 08/18/21 05:41 Random Cortisol 10.46 ug/dL (2.47-19.5) 09/02/21 05:00 Urine Color Yellow (Yellow) 09/07/21 08:00 Urine Appearance Clear (CLEAR) 09/07/21 08:00 Urine pH 5 (5-7) 09/07/21 08:00 Ur Specific [place] 1.020 (1.005-1.030) 09/07/21 08:00 Urine Protein 1+ (Negative) H 09/07/21 08:00 Urine Glucose (UA) Norm (Normal) 09/07/21 08:00 Urine Ketones 1+ (Negative) H 09/07/21 08:00 Urine Blood Neg (Negative) 09/07/21 08:00 Urine Nitrate Negative (Negative) 09/07/21 08:00 Urine Bilirubin Neg (Negative) 09/07/21 08:00 Urine Urobilinogen 1 mg/dL (Negative) H 09/07/21 08:00 Ur Leukocyte Esterase Negative (Negative) 09/07/21 08:00 Urine RBC 0-4 /hpf (0-2) H 09/07/21 08:00 Urine WBC 0-4 /hpf (0-5) H 09/07/21 08:00 Ur Squamous Epith Cells Rare /hpf (0-5) 09/07/21 08:00 Amorphous Sediment Trace /hpf 09/07/21 08:00 Urine Bacteria 1+ /hpf (NONE) H 09/07/21 08:00 Urine Mucus Trace /hpf 09/07/21 08:00 Fluid Source 08/29/21 11:00 Fluid Color Cancelled 08/29/21 11:00 Fluid Appearance Cancelled 08/29/21 11:00 Fluid WBC Cancelled 08/29/21 11:00 Fluid RBC Cancelled 08/29/21 11:00 Fluid Tot Cell Count Cancelled 08/29/21 11:00 Fld Polynuclear WBCs # Cancelled 08/29/21 11:00 Fld Polynuclear WBCs % Cancelled 08/29/21 11:00 Fl Mononucl WBCs #(Auto) Cancelled 08/29/21 11:00 Fl Mononuclear % Auto Cancelled 08/29/21 11:00 Bronch Specimen Source L. lower lobe 08/29/21 11:00 Bronchial Fluid Color Colorless 08/29/21 11:00 Bronchial Fluid Appearance Hazy (CLEAR) 08/29/21 11:00 Bronchial Fluid WBC 400 /uL 08/29/21 11:00 Bronchial Fluid RBC 350 10^3/uL 08/29/21 11:00 Bronch Cells Counted 200 08/29/21 11:00 Bronchial Neutrophils 68.00 % (0.9-2.3) H 08/29/21 11:00 Bronchial Lymphocytes 11.00 % (10.71-12.91) 08/29/21 11:00 Bronchial Eosinophils 3.00 % (0.13-0.25) H 08/29/21 11:00 Bronchial Macrophages 18.00 % (83.6-86.8) L 08/29/21 11:00 Bronchial Diff Comment Yes 08/29/21 11:00 Vancomycin Trough 16.9 ug/mL (10-15) H 09/03/21 22:28 Pneumocystis Source 08/29/21 11:00 Pneumocystis DNA (PCR) No dna detected copies/mL 08/29/21 11:00 Pneumocyst jiroveci PCR Not detected 08/29/21 11:00 Beta-(1,3)-D-Glucan <31 pg/mL 08/29/21 19:50 B-(1,3)-D-Glucan Intrp Negative 08/29/21 19:50 Blood Type A Positive 09/07/21 07:55 Rho(D) Type Positive 09/07/21 07:55 Antibody Screen Negative 09/07/21 07:55 PEYTON, Poly Interpret Negative 09/07/21 19:44 Crossmatch See Detail 09/07/21 07:55 Micro: Microbiology 09/04/21 04:20 Blood Culture - Final Blood NO GROWTH AFTER 5 DAYS 09/07/21 07:50 Blood Culture - Preliminary Blood NEGATIVE TO DATE 09/07/21 07:50 Blood Culture - Preliminary Blood NEGATIVE TO DATE A&P Assessment and plan (1) Acute respiratory failure with hypoxia: Status: Acute (2) COVID-19: Status: Acute (3) HTN (hypertension): Status: Acute (4) Hypothyroidism: Status: Acute (5) Acute respiratory distress syndrome (ARDS) due to 2019 novel coronavirus: Status: Acute (6) Anxiety: Status: Acute (7) Pulmonary embolism associated with COVID-19: Status: Acute (8) Goals of care, counseling/discussion: Status: Acute Plan #Acute hypoxic respiratory failure secondary to ARDS due to COVID-19 pneumonia/PE #Pulmonary embolism on elliquis #Hypertension #Hypothyroidism #Persistent low-grade fevers -Intubated 08/29/2021-extubated 09/07/2021 -completed 4 proning sessions -Currently on 8 L nasal cannula-and requiring up to 2 L on exertion - Currently still on precedex, - on xanax and seroquel -alert and follows commands and has meaningful-slowly taper off Precedex conversations -H&H stable at 8.3/25- haptoglobin Low 10; with normal bilirubin - Doubt if it is drug-induced hemolytic anemia. -At this time no evidence of DIC, no evidence of TTP, no evidence of autoimmune hemolytic anemia. - Repeat transferrin saturation.? Consider IV iron if needed. - Low likelihood of HIT per heme, but already also transition to p.o. anticoag ulation.? Follow-up HIT antibody, MERRITT. -Plan is to taper down methylprednisolone-today she is in 15 mg daily - chest xray showed improving right-sided infiltrates- so far cultures negative -completed 10 days vancomycin and imipenem -Still has low grade fevers-we will monitor off antibiotics as all cultures were negative so far -Completed 5-day course of remdesivir, dexamethasone, 1 dose of Tocilizumab, and received baricitinib few doses Discontinued in view of discontinued in view of possible secondary infection - CTA 08/18/2021 was negative for pulmonary embolism but secondary to markedly elevated dimer on full dose anticoagulation with Lovenox later switched to Eliquis 5 mg twice daily--due to worsening FiO2 requirements CTA was repeated 08/28/2021 which showed multiple small pulmonary emboli in first order to segmental branches of right pulmonary artery and worsening bilateral pneumonia; Currently on Eliquis 10 mg p.o. every 12 -Performed bronchoscopy post intubation and BAL fluid was neutrophil predominant, cultures negative --DCed Bactrim as patient BAL negative for PCP PCR; Sputum 08/29/2021 growing yeast-Patrica albicans-most likely commensal - DCed flucanazole - Echocardiogram demonstrated preserved EF, mild pulmonary hypertension -Currently on Lasix 40 mg twice daily-monitor input output/electrolytes/renal functions and try to keep net negative; K 2.8- decreased Lasix to 40 mg daily -had 5-6 bowel movemetns yesterday night -hold lactulose; continue senna docusate for bowel regimen -DVT prophylaxis : Elliquis -GI prophylaxis: PPI -Bedside swallow evaluation and soft diet with aspiration precautions -Full code -Family updated Plan is to bedside physical therapy, continue intensive spirometry Patient conveyed to hospitalist, RN, RT taking care of the patient Attestations Medical Necessity Statement*: Acute hypoxic respiratory failure secondary to ARDS due to COVID-19 pneumonia/pulmonary embolism requiring high flow oxygen and close monitoring in ICU Time Spent in Patient Care: Greater than 35 minutes (>than 50% of time spent in counselling and/or direct pt care on unit) . Critical Care Time: The high probability of a clinically significant, sudden or life threatening deterioration of the patient's [respiratory, infectious system(s) required my full and direct attention, intervention and personal management. The critical care time is as shown. This time is in addition to time spent performing any reported procedures but includes the following: [x] Data and vital sign review and interpretation [x] Patient assessment, examination and intervention [x] Documentation [x] Medication orders and management Critical Care Time (min): 51 Coding Level of Care Code Established Pt Acute Shake Packer for Chg Fwd Patient Type Established History Comprehensive Exam Comprehensive Medical Decision Making High Complexity Diagnoses Acute respiratory failure with hypoxia J96.01 COVID-19 U07.1 HTN (hypertension) I10 Hypothyroidism E03.9 Acute respiratory distress syndrome (ARDS) due to 2019 novel coronavirus U07.1; J80 Anxiety F41.9 Pulmonary embolism associated with COVID-19 U07.1; I26.99 Goals of care, counseling/discussion Z71.89 Time Spent (min) 51
--- NOTE | 2021-09-09 10:02 | PC.NURSE ---
Oxygen requirements increased from 6L to 12L NC. Patient was transferred from bed to chair with moderate assist. Tolerated well
--- NOTE | 2021-09-09 11:03 | PC.OT ---
OT EVALUATION ATTEMPTED. PATIENT'S K IS CRITICAL AT 2.8 TODAY; HR 100+ AND O2 SATURATION 91% ON HEATED HIGH FLOW. HOLD TODAY AND ATTEMPT TOMORROW.
[2021-09-09 12:54] LABS: Blood Gas Allen Test Pos; Blood Gas Sample Type Arterial
[2021-09-09 13:47] LABS: ABG PCO2 32.9 mmHg (35-45); ABG PH Result 7.53 (7.35-7.45); Alveolar-Arterial Oxygen Gradi 33.5 mmHg (5-10); Arterial Blood Gas Hematocrit 26.7 % (37-47); Base Excess ABG 4.6 mmol/L (-2.0-2.0); Blood Gas Operator Identificat CAK; Blood Gas Sample Site Radial, left; Carboxyhemoglobin 3.1 %THgb (0.4-20.1); HCO3 ABG 27.5 mmol/L (22-26); HGB O2 Sat 88.8 % (95-100); Ionized Calcium Level - ABG 1.2 mmol/L (1.1-1.4); Methemoglobin 0.7 % (0.4-1.5); Oxygen Device HAG; Oxygen Saturation ABG 92.2; PO2 ABG 54.4 mmHg (80.0-100.0); Potassium Level - ABG 3.2 mmol/L (3.5-5.0); Total Hemoglobin 8.7 g/dL (12-16)
[2021-09-09] MEDS: ALPRAZolam 0.5 mg Tablet 1 MG PO ×2 (16:47→22:00)
--- NOTE | 2021-09-09 17:37 | PC.PT ---
Nursing states patient had to be returned to high flow, after transferring to chair, and request chair level only exercise, entered room, patient sleeping patient spouse present, patient spouse request patient be allowed to rest, so will hold for today and reattempt tomorrow.
--- NOTE | 2021-09-09 18:53 | P.PN_ITS ---
Vitals/I&O/Wt Last Vital Signs Temp 98.5 F 09/09/21 10:30 Pulse 82 09/09/21 18:30 Resp 30 H 09/09/21 18:30 BP 115/62 09/09/21 18:30 Pulse Ox 95 09/09/21 18:30 09/09/21 09/09/21 09/09/21 06:59 14:59 22:59 Intake Total 460 / 1077.5 258.104 / 258.104 60 / 318.104 Output Total 1275 / 2675 950 / 950 475 / 1425 Balance -815 / -1597.5 -691.896 / -691.896 -415 / -1106.896 Weight last 48 hrs Weight 104.099 kg Weight 104.355 kg Physical Exam Const: COMMON NORMALS: patient oriented x3 and alert GENERAL APPEARANCE: cooperative ORIENTATION/CONSCIOUSNESS: Yes awake OTHER: Weak HENMT: COMMON NORMALS: oropharynx normal Neck/C-Spine: COMMON NORMALS: no JVD Resp: COMMON NORMALS: normal respiratory effort AUSCULTATION: crackles Laterality: bilateral Cardio: COMMON NORMALS: no JVD, regular rhythm, S1 normal heart sound present, S2 normal heart sound present and No murmurs present (Cardio) RHYTHM: regular rhythm HEART SOUNDS: S1 normal heart sound present and S2 normal heart sound present GI: COMMON NORMALS: Normal to inspection, nondistended, normoactive bowel sounds present, Soft to palpation and non-tender PALPATION: Yes Soft to palpation Extremity: COMMON NORMALS: no joint enlargement and no pedal edema OTHER: Cooler L foot Neuro: COMMON NORMALS: patient oriented x3 and moves all extremities SENSORIUM/ORIENTATION: Yes alert Skin: COMMON NORMALS: no rashes or lesions noted GENERAL SKIN EXAM: no rashes or lesions noted Urinary Catheter Management: Gomez: Cath Placed During This Visit: yes Reason for Continuing Indwelling Catheter: Accurate Measurement of Urinary Output in Critically Ill Patients Urinary Catheter Date of Insertion: 08/29/21 Urinary Catheter Time of Insertion: 01:18 Data : 09/09/21 03:57 09/09/21 03:57 Micro: Microbiology 09/07/21 11:00 Gram Stain - Final Sputum - Endotracheal Tube Aspirate Sputum Culture - Preliminary Yeast 09/04/21 09:16 Blood Culture - Final Blood NO GROWTH AFTER 5 DAYS 09/04/21 04:20 Blood Culture - Final Blood NO GROWTH AFTER 5 DAYS A&P Assessment and plan (1) Acute respiratory distress syndrome (ARDS) due to 2019 novel coronavirus: Worsened oxygen requirement today. Dysphagia. Concern for possible aspiration despite dysphagia diet She is not doing a good job coughing. Assess MBS. Also growing yeast again, rare, but possibly resistant. Add caspofungin. On discussion with pulmonology recommend for now to continue steroids, Solu- Medrol 40 mg twice daily. Feels dehydrated. Requested Lasix frequency to be decreased to once daily. Anxious today. Precedex rate had to be increased. On Precedex drip, wean down slowly given she has been on it for prolonged period of time to avoid withdrawal. Low-grade fever appears to be subsiding, lower fever, less frequent. Possibly related to medication. D escalated off antibiotics. Monitor if additional fever, recheck procalcitonin. Discussed with RN, try to obtain peripheral IV. With secured accessible CVC, send tip for culture. Mobilize with PT. Very deconditioned, very weak, mobilize with PT. Post discharge planning. Status: Acute (2) COVID-19: As above. Completed course of Decadron. Remdesivir. Received Actemra 08/19. D-dimer level improved. Anticoagulation changed to p.o. for PE. Status: Acute (3) Hemolytic anemia: Appreciate hematology assessment and recommendations. No need for steroid for the anemia. At this time no evidence of DIC, no evidence of TTP, no evidence of autoimmune hemolytic anemia. Monitor hemoglobin. Transfuse as needed. Repeat iron saturation is good. Consider IV iron if needed. Low likelihood of HIT per heme, but already also transition to p.o. anticoag ulation. Follow-up HIT antibody, MERRITT. Status: Acute (4) Septic shock: Off pressors. Status: Acute (5) Pulmonary embolism associated with COVID-19: Transitioned from argatroban to Eliquis. Monitor blood counts in the setting of concomitant hemolytic anemia Status: Acute (6) Ileus: Multiple bowel movements after enema. Status: Acute (7) HTN (hypertension): Status: Acute (8) Hypothyroidism: Continue with home dose of levothyroxine. TSH appreciated. Status: Acute (9) Anxiety: Continue home dose of topiramate, trazodone. Status: Acute (10) Goals of care, counseling/discussion: Status: Acute (11) Nonpalpable pulse: Today pulses palpable. Unclear cause, possible transient vasoconstriction. Left arterial duplex ultrasound normal. Status: Acute Attestations Medical Necessity Statement*: Continue admission for assessment management of hypoxic respiratory failure with severe COVID-19. Critical Care Time: The high probability of a clinically significant, sudden or life threatening deterioration of the patient's respiratory system, adjustment of sedative infusion required my full and direct attention, intervention and personal management. The critical care time is as shown. This time is in addition to time spent performing any reported procedures but includes the following: [x] Data and vital sign review and interpretation [x] Patient assessment, examination and intervention [x] Documentation [x] Medication orders and management Coding Level of Care Code Acute Commercial Project Manager for [facility] Diagnoses Acute respiratory distress syndrome (ARDS) due to 2019 novel coronavirus U07.1; J80 COVID-19 U07.1 Hemolytic anemia D58.9 Septic shock A41.9; R65.21 Pulmonary embolism associated with COVID-19 U07.1; I26.99 Ileus K56.7 HTN (hypertension) I10 Hypothyroidism E03.9 Anxiety F41.9 Goals of care, counseling/discussion Z71.89 Nonpalpable pulse Z78.9
[2021-09-09 19:38] LABS: Potassium 3.2 mmol/L (3.5-5.1)
[2021-09-09] MEDS: potassium chloride ER 20 mEq Tablet 40 MEQ PO (22:00)
[2021-09-10] VITALS (69 sets, daily range): BP systolic 100–168; BP diastolic 60–107; PULSE 72–128; RESP 17–49; TEMP 36.7–38.7; O2SAT 85–99; BMI 35.5
[2021-09-10] MEDS: FUROsemide 10 mg/mL SDV 4mL 40 MG IVP ×2 (01:18→08:56)
[2021-09-10 02:50] LABS: Basophils % 0.2 %; Eosinophils % 0.1 %; Hematocrit 25.8 % (37.0-47.0); Lymphocytes # 1.1 10^3/uL (0.8-4.8); Mean Corpuscular Hemoglobin 30.4 pg (28.0-34.0); Mean Corpuscular Volume 98.1 fl (81-99); Mean Platelet Volume 9.6 fL (7.4-10.4); Monocytes # 1.2 10^3/uL (0.2-0.9); Monocytes % 7.3 %; Neutrophils # 13.54 10^3/uL (1.8-7.7); Neutrophils % 83.1 %; Nucleated Red Blood Cells # 0.1 /100WBC; Nucleated Red Blood Cells % 0.6 %; Platelet Count 322 10^3/cmm (130-400); Red Blood Count 2.63 10^6/uL (4.1-5.3); Red Cell Distribution Width 18.5 % (12.1-15.1); White Blood Count 16.3 10^3/uL (4.0-10.0)
[2021-09-10 03:15] LABS: Alanine Aminotransferase 35 U/L (0-33); Albumin Level 3.1 g/dL (3.5-5.2); Alkaline Phosphatase 79 IU/L (35-105); Anion Gap 15.3 (5-19); Aspartate Amino Transferase 32 U/L (0-32); Blood Urea Nitrogen 19 mg/dL (6-20); Calcium 8.9 mg/dL (8.5-10.5); Carbon Dioxide 26 mmol/L (22-29); Chloride 107 mmol/L (98-107); Globulin 3.1 g/dL (1.3-4.6); Glomerular Filtration Rate 227.7 mL/min (90-130); Glucose 158 mg/dL (65-115); Osmolality Calculated 306 mOsm/kg (285-295); Potassium 3.3 mmol/L (3.5-5.1); Sodium 145 mmol/L (136-145); Total Bilirubin 1.1 mg/dL (0.15-1.2); Total Protein 6.2 g/dL (6.6-8.7)
[2021-09-10] MEDS: apixaban 5 mg Tablet 10 MG PO ×2 (04:26→15:52)
[2021-09-10] MEDS: levalbuterol 0.63 mg/3 mL Neb INHALATION ×5 (04:37→20:00)
[2021-09-10] MEDS: ipratropium 0.5 mg/2.5 mL Neb INHALATION ×5 (04:37→20:00)
--- NOTE | 2021-09-10 06:00 | XR_ITS ---
WS: [id number] PORTABLE CHEST HISTORY: Hypoxia COMPARISON: 09/08/2021 Right-sided central line with tip in the distal SVC. There is significant bilateral diffuse opacifications throughout both lungs with progression since th e prior study. Complete obscuration of the heart by the dense areas of consolidation. No pleural effu sanchez or pneumothorax. Cardiac size: Heart is obscured by the dense areas of consolidation. Mediastinum/Aorta: Mild widening is due to supine positioning and the areas of consolidation. Resection of the distal RIGHT clavicle. XR/XR chest 1V portable [id number] IMPRESSION: 1. Significant progression of bilateral pulmonary opacifications with increasi ng consolidation since 09/08/2021. 2. No pneumothorax or pneumomediastinum.
[2021-09-10] MEDS: potassium chloride premix 100 ML 25 MEQ IV (06:16)
[2021-09-10] MEDS: LORazepam 2 mg/mL INJ 1 mL 1 MG IVP (06:56)
[2021-09-10] MEDS: budesonide 0.5 mg/2 mL Neb INHALATION ×2 (07:36→20:00)
--- NOTE | 2021-09-10 07:55 | PC.NURSE ---
This nurse notified Dr. Oscar that patient's RR is labored at 38 to 40, placed on bipap, advised this nurse to make patient NPO
--- NOTE | 2021-09-10 08:00 | PC.NURSE ---
patient not tolorating bipap, placed back on HHF per RT
[2021-09-10] MEDS: pantoprazole 40 mg SDV IVP (08:56)
[2021-09-10] MEDS: propofol 1,000 MG/100 ML INJ 5.99 MG IV (09:49)
--- NOTE | 2021-09-10 10:35 | XR_ITS ---
WS: [id number] CHEST XRAY TECHNIQUE: Portable chest. CLINICAL INFORMATION: post intubation COMPARISON: September 10, 2021, 0410 FINDINGS: Enteric tube with tip in the stomach. RIGHT central venous catheter tip in the distal SVC i n good position. Tubes/Lines: Endotracheal tube with tip 5.5 cm above the jasper just below the thoracic inlet. This c ould be advanced 2 cm. Heart: Cardiomegaly. Lungs: Diffuse bilateral pulmonary infiltrates improved since earlier today September 10, 2021. Improv ed aeration of the LEFT midlung and LEFT lower lobes. Improved inspiration Bones: Hypertrophic changes. XR/XR chest 1V portable [id number] IMPRESSION: 1. Endotracheal tube with tip 5.5 cm above the jasper just below the thoracic inlet. This could be advanced 1.5 CM 2. Enteric tube with tip in the stomach. 3. RIGHT central venous catheter with tip in the distal SVC in good position. 4. Diffuse bilateral pulmonary infiltrates are improved post bronchoscopy part icular improved aeration of the LEFT midlung and LEFT lower lobe today. Improve d inspiration. Discussed with Howard Leyva MD at 09/10/2021 11:12 AM.
[2021-09-10] MEDS: rocuronium 10 mg/mL INJ 5mL IVP ×2 (10:42→11:00)
[2021-09-10] MEDS: midazolam 1 mg/mL INJ 2 mL 2 MG IVP (10:42)
--- NOTE | 2021-09-10 10:47 | PC.SOCIAL ---
IMM Update Updated pt's daughter on IMM. No questions voiced. Provided pt a copy. Initialed, dated, & timed copy in chart.
--- NOTE | 2021-09-10 11:02 | PM.ACPR ---
Procedure/Consent Time out: Time Out Performed: Yes Consent: Additional Consent Information: Consent obtained from other (indicate) (Next of kin ), Risks & Benefits reviewed and Agrees to proceed with procedure Procedure Narrative: Endotracheal Intubation Procedure Note Indication for endotracheal intubation: Acute hypoxic respiratory failure secondary to ARDS due to COVID-19 pneumonia and possible superimposing aspiration pneumonia Time of the procedure: 939 Consent: Verbal consent taken from patient, next of kin her and daughter Ms. Hoyt at bedside.? The patient was in immediate danger, and required the procedure emergently. Sedation: Versed 2 mg, Etomidate 20 mg Paralytic: Rocuronium 100 mg ? Equipment: Glidoscope blade 3 View: Grade 1 Cricoid Pressure: No Number of attempts: 1 ETT location confirmed by direct visulization, ET fogging, Capnometer, bilateral breath sounds, Chest x ray Howard DatarMD Pulm/Critical Care Medicine Acute Procedures Epistaxis Control: Time out performed: Yes
--- NOTE | 2021-09-10 11:03 | P.PCN_ITS ---
Procedure/Consent Time out: Time Out Performed: Yes Consent: Additional Consent Information: Obtained from next of kin-patient's and placed in chart Procedure Narrative: Procedure time: 10:30 AM Procedure: Ultrasound-guided identification of the left internal jugular vein and placement of Central venous line Indication: Multiple medications including paralytics as patient is intubated and plan is to prone for acute hypoxemic respiratory failure-patient already has a right internal jugular vein for last 13 days and has low-grade fevers and persistent leukocytosis-although cultures were negative-decision was made to place new left IJ line and remove right IJ line. Scooping Machine Tender(s): Howard Leyva MD Consent: Yes Time out called. [place] precautions applied. Site: Left internal jugular central line Catheter:7 Fr 20cm, Triple Lumen Sutured at: 18 cm Anesthesia: 5 cc 1% lidocaine without epinephrine Description: Cap, eye protection, mask donned by myself and RN. Patient head down below feet (Trendelenburg 10 degrees). Sterile gown and gloves donned. Time out patient prepped with Chlorhexidine and full body fenestrated drape placed in sterile fashion. The vessel anatomy and patency was examined by ultrasound probe which was covered with sterile probe cover. Real time US guidance for target selection and real time US visualization of needle entry into vessel, after venous blood aspirated the guidewire was inserted through the needle and kept in situ. After inserting the guidewire for about 20 cm met with some resistance at which point placement of guidewire in the vein was checked with ultrasound. Position of guidewire confirmed its placement in internal jugular vein relation to the adjacent artery in both in-plane and [id number] US views, but it showed coiling of guidewire within the internal jugular vein and so it was deemed unsafe to proceed with dilation and placement of catheter. So guidewire was removed and applied pressure at the insertion site for 10 minutes to make sure there is no hematoma or active bleeding. Procedure terminated. EBL: 5-10 cc Complications: None Ultrasound guidance used: Yes. Acute Procedures Epistaxis Control: Time out performed: Yes
--- NOTE | 2021-09-10 11:03 | P.PCN_ITS ---
Procedure/Consent Time out: Time Out Performed: Yes Consent: Additional Consent Information: Consent obtained from other (indicate) (Next of kin ), Risks & Benefits reviewed and Agrees to proceed with procedure Procedure Narrative: Procedure: Flexible bronchoscopy with airway inspection, airway clearance of secretions and obtaining bronchoalveolar lavage sample Pre-Operative Diagnosis: Suspect aspiration pneumonia Post-Operative Diagnosis: Same Indication: Persistent leukocytosis with chest x-ray showing worsening infiltrates in patient with ARDS due to COVID-19 pneumonia-suspect aspiration pneumonia Anesthesia: Patient just got intubated and received rapid sequence medications Versed 2 mg, etomidate 20 mg, rocuronium 100 mg, and placed on propofol drip which was titrated to achieve adequate sedation Pre-procedure Evaluation: Patient was evaluated clinically and ancillary testing reviewed. The risk of having active MTB infection is very low in my clinical judgement. ASA: 4 Malampati score: unable to evaluate due to presence of endotracheal tube Consent: Consents were [facility] from [facility] and placed in the chart Procedure Details: Time out was performed by the procedure team and nursing staff.? Vent support maintained on Fio2 100. The bronchoscope was introduced through the ETT.? A bronchoscopic airway exam was performed to evaluate the visible tracheobronchial tree to the segmental level. Summary of Significant Findings: -Bronchoscope passed through ET tube, 6 ml 1% lidocaine instilled 2 mm each into the trachea, both right and left main bronchus.? Distal trachea and main jasper visualized which were sharp and normal.? Then the scope was passed through the right bronchial tree was assessed to include the right mainstem bronchus, RBI, and RUL/RML/RLL bronchi to the segmental and subsegmental levels.? No active bleeding noted.? Mucosa appeared normal.? Some clear secretions noted which were suctioned right away. Then the scope was left bronchial tree was assessed to include the left mainstem bronchus, KARLIE, Lingula, and LLL bronchi to the segmental and subsegmental level. No active bleeding noted.? Mucosa appeared normal.? Sticky thick mucus noted in left mainstem bronchus, upper lobe and lower lobes-which were all suctioned out BAL obtained from left lower lobe the bronchoscope was then removed and the procedure terminated. Estimated Blood Loss: None ? Specimens:? Bronchoalveolar lavage was taken from left lower lobe and sent for Gram stain and bacterial cultures, fungal cultures, PCP PCR ? Complications:None; patient tolerated the procedure well. ? Disposition: Patient remains critically ill, intubated and stays in ICU Howard Leyva MD Pulmonary critical Care Medicine [facility] Acute Procedures Epistaxis Control: Time out performed: Yes
--- NOTE | 2021-09-10 11:03 | PM.PN ---
Subjective Subjective: -Patient seen at bedside -she is visibly in respiratory distress, drowsy, requiring 90% on high flow nasal cannula on -As per inspector fuel hose MD and respiratory therapist--she was seen aspirating her own secretions and had episodes of bowel movements with which she she could not sleep well -Received additional dose of Lasix yesterday night-she is in net -2.5 L fluid balance -Today morning chest x-ray showed worsening infiltrates compared to yesterday -Decision was made to reintubate her for bronchoscopy to clear aspirated secretions and sent for BAL -She had uneventful intubation followed by bronchoscopy which showed clear secretions in the right bronchial tree but thick mucoid secretions and left main bronchus, left lower lobe and left upper lobe-all secretions were cleared and BAL sent for Gram stain and culture, fungal cultures and PCP PCR -Plan is to continue sedation, broaden antibiotic coverage for aspiration pneumonia while awaiting for cultures and paralyzed and prone if patient FiO2 does not get better by this afternoon -Other labs and imaging reviewed Medications: Reviewed: Yes Vitals/I&O/Wt Last Vital Signs Temp 98.9 F 09/10/21 06:00 Pulse 102 H 09/10/21 07:43 Resp 18 09/10/21 10:10 BP 161/102 09/10/21 07:15 Pulse Ox 99 09/10/21 10:10 09/09/21 09/10/21 09/10/21 22:59 06:59 14:59 Intake Total 389.396 / 647.500 30.301 / 677.801 24.680 / 24.680 Output Total 625 / 1575 1600 / 3175 Balance -235.604 / -927.500 -1569.699 / -2497.199 24.680 / 24.680 Weight last 48 hrs Weight 220 lb Weight 229 lb 8 oz Physical Exam Narrative: PHYSICAL EXAM: Post intubation General: lying in bed, sedated and intubated. HEENT:NCAT, PERRLA, EOMI Neck: Supple Lungs: Bilateral diffuse crepitations Heart: s1/s2, RRR Abd: soft, NT, ND, BS + Normoactive Extremities: No edema AUTO LEASING MANAGER: sedated and limited AUTO LEASING MANAGER exam possible. SKIN: no rash LDA: # CVC: Right IJ 08/30/2021 Urinary Catheter Management: Gomez: Cath Placed During This Visit: yes Reason for Continuing Indwelling Catheter: Accurate Measurement of Urinary Output in Critically Ill Patients Urinary Catheter Date of Insertion: 08/29/21 Urinary Catheter Time of Insertion: 01:18 Data : 09/10/21 02:30 09/10/21 02:30 Other Labs: Radiology Impressions Chest CTA 08/28/21 08:21 IMPRESSION: 1. Multiple small pulmonary emboli in 1st order through segmental branches of the right pulmonary artery. 2. Bilateral pneumonia, appears worsened when compared to the prior study. COMMENTS: Consistent with the [place] [employer]'s Incidental Findings Committee white paper (J Am Margie Radiol 2018): Any incidental renal lesion less than 1 cm or classified as too small to characterize, or any incidental cystic renal lesion characterized as simple-appearing, is likely benign. No follow-up imaging is recommended for these lesions per consensus recommendations based on imaging criteria. Chest/Abdomen/Pelvis CT 09/03/21 09:34 IMPRESSION: There is been some clearing of the diffuse lung opacities compared to the previous CT scan however significant abnormality remains. Chest otherwise unchanged. No acute abnormality identified in the abdomen or pelvis. Duplex Scan Lower Extremity Artery 09/08/21 10:21 IMPRESSION: No stenosis or occlusion. Chest X-Ray 09/10/21 10:35 IMPRESSION: 1. Endotracheal tube with tip 5.5 cm above the jasper just below the thoracic inlet. This could be advanced 1.5 CM 2. Enteric tube with tip in the stomach. 3. RIGHT central venous catheter with tip in the distal SVC in good position. 4. Diffuse bilateral pulmonary infiltrates are improved post bronchoscopy particular improved aeration of the LEFT midlung and LEFT lower lobe today. Improved inspiration. Discussed with Howard Leyva MD at 09/10/2021 11:12 AM. Laboratory Results WBC 16.3 10^3/uL (4.0-10.0) H 09/10/21 02:30 Corrected WBC 54.7 10^3/cmm (4.8-10.8) H 09/03/21 03:40 RBC 2.63 10^6/uL (4.1-5.3) L 09/10/21 02:30 Hgb 8.0 g/dL (11.5-15.3) L 09/10/21 02:30 Hct 25.8 % (37.0-47.0) L 09/10/21 02:30 MCV 98.1 fl (81-99) 09/10/21 02:30 MCH 30.4 pg (28.0-34.0) 09/10/21 02:30 MCHC 31.0 g/dL (30.0-36.0) D 09/10/21 02:30 RDW 18.5 % (12.1-15.1) H 09/10/21 02:30 Plt Count 322 10^3/cmm (130-400) 09/10/21 02:30 MPV 9.6 fL (7.4-10.4) 09/10/21 02:30 Neut % (Auto) 83.1 % 09/10/21 02:30 Lymph % (Auto) 7.0 % 09/10/21 02:30 [place] % (Auto) 7.3 % 09/10/21 02:30 Eos % (Auto) 0.1 % 09/10/21 02:30 Baso % (Auto) 0.2 % 09/10/21 02:30 Reticulocyte % (Auto) 7.6 % (0.5-2.0) H 09/08/21 04:13 Neut # (Auto) 13.54 10^3/uL (1.8-7.7) H 09/10/21 02:30 Lymph # (Auto) 1.1 10^3/uL (0.8-4.8) 09/10/21 02:30 [place] # (Auto) 1.2 10^3/uL (0.2-0.9) H 09/10/21 02:30 Eos # (Auto) 0.0 10^3/uL (0.0-0.8) 09/10/21 02:30 Baso # (Auto) 0.0 10^3/uL (0.0-0.1) 09/10/21 02:30 Nucleated RBC % (auto) 0.6 % 09/10/21 02:30 Total Counted 100 (0-100) 09/06/21 15:45 Atypical Lymphs % 0.0 % (0-5) 09/06/21 15:45 Absolute Neutrophils 13.7 10^3/cmm (1.4-6.5) H 09/06/21 15:45 Segmented Neutrophils 67 % 09/06/21 15:45 Abs Segm Neuts (Man) 11.7 10/cmm (1.6-7.1) H 09/06/21 15:45 Band Neutrophils 11.0 % 09/06/21 15:45 Abs Band Neuts (Man) 1.9 10^3/cmm (0.0-1.2) H 09/06/21 15:45 Absolute Lymphocytes 0.9 10^3/cmm (1.2-3.4) L 09/06/21 15:45 Lymphocytes (Manual) 5 % 09/06/21 15:45 Monocytes (Manual) 5.0 % 09/06/21 15:45 Absolute Monocytes 0.9 10^3/cmm (0.1-0.6) H 09/06/21 15:45 Eosinophils (Manual) 2 % 09/06/21 15:45 Absolute Eosinophils 0.3 10^3/cmm (0.0-0.7) 09/06/21 15:45 Basophils (Manual) 0.0 % 09/06/21 15:45 Absolute Basophils 0.0 10^3/cmm (0.0-0.2) 09/06/21 15:45 Metamyelocytes 8.0 % 09/06/21 15:45 Myelocytes 2.0 % 09/06/21 15:45 Nucleated RBCs 3.0 /100WBC (0-1) H 09/05/21 17:11 Nucleated RBCs # 0.1 /100WBC 09/10/21 02:30 Differential Comment Cancelled 08/29/21 11:00 Smudge Cells Trace 09/06/21 15:45 Platelet Estimate Normal (Normal) 09/06/21 15:45 Giant Platelets 1+ H 09/05/21 17:11 Polychromasia 1+ H 09/06/21 15:45 Hypochromasia 1+ H 09/06/21 15:45 Poikilocytosis Trace 09/06/21 15:45 Anisocytosis 2+ H 09/06/21 15:45 Macrocytosis Trace 09/06/21 15:45 Retic Production Index 4.81 09/08/21 04:13 Haptoglobin 10.0 mg/L (30-200) L 09/08/21 04:13 PT 33.80 SECONDS (12.1-14.9) H 09/08/21 04:13 INR 3.27 (0.8-1.2) H 09/08/21 04:13 APTT 82.4 SECONDS (23.9-36.7) H 09/08/21 04:13 Fibrinogen 417 mg/dL (174-498) 09/08/21 04:13 Fibrin Degrad Products Pos, >=40 ug/mL (NEG) H 09/08/21 04:13 D-Dimer 1.50 ug/mIFEU (0-0.59) H 09/10/21 12:26 Specimen Type Arterial 09/10/21 11:36 Sample Site Brachial, left 09/10/21 11:36 ABG pH 7.32 (7.35-7.45) L 09/10/21 11:36 ABG pCO2 54.2 mmHg (35-45) H 09/10/21 11:36 ABG pO2 88.0 mmHg (80.0-100.0) 09/10/21 11:36 ABG HCO3 28.1 mmol/L (22-26) H 09/10/21 11:36 ABG O2 Saturation 96.6 09/10/21 11:36 ABG Base Excess 1.5 mmol/L (-2.0-2.0) 09/10/21 11:36 Suraj Test Pos 09/10/21 11:36 A-a O2 Gradient 64.4 mmHg (5-10) H 09/10/21 11:36 Hematocrit 25.6 % (37-47) L 09/10/21 11:36 Hgb O2 Saturation 93.3 % (95-100) L 09/10/21 11:36 Carboxyhemoglobin 3.0 %THgb (0.4-20.1) 09/10/21 11:36 Methemoglobin 0.5 % (0.4-1.5) 09/10/21 11:36 Total Hemoglobin 8.4 g/dL (12-16) L 09/10/21 11:36 Sodium 149.0 mmol/L (131-143) H 09/10/21 11:36 Potassium 3.6 mmol/L (3.5-5.0) 09/10/21 11:36 Glucose 167.0 mg/dL (70-115) H 09/10/21 11:36 Ionized Calcium 1.3 mmol/L (1.1-1.4) 09/10/21 11:36 O2 Delivery Device Vent 09/10/21 11:36 O2 Liters/Min 45.0 % 09/09/21 12:43 FiO2 90.0 % 09/10/21 11:36 Tidal Volume 0.40 09/07/21 04:00 PEEP 10.0 cmH20 09/10/21 11:36 Radio Equipment Repairer ID Cak 09/10/21 11:36 Sodium 145 mmol/L (136-145) 09/10/21 02:30 Potassium 3.3 mmol/L (3.5-5.1) L 09/10/21 02:30 Chloride 107 mmol/L (98-107) 09/10/21 02:30 Carbon Dioxide 26 mmol/L (22-29) 09/10/21 02:30 Anion Gap 15.3 (5-19) 09/10/21 02:30 BUN 19 mg/dL (6-20) 09/10/21 02:30 Creatinine 0.3 mg/dL (0.5-0.9) L 09/10/21 02:30 GFR Calculation 227.7 mL/min (90-130) H 09/10/21 02:30 Glucose 158 mg/dL (65-115) H 09/10/21 02:30 POC Glucose 131 mg/dL (70-110) H 08/29/21 11:26 Calculated Osmolality 306 mOsm/kg (285-295) H 09/10/21 02:30 Lactic Acid 1.3 mmol/L (0.5-2.2) 08/18/21 06:49 Calcium 8.9 mg/dL (8.5-10.5) 09/10/21 02:30 Phosphorus 2.7 mg/dL (2.5-4.5) 08/19/21 04:08 Magnesium 2.3 mg/dL (1.7-2.3) 09/09/21 03:57 Iron 67 ug/dL (37-145) 09/09/21 03:57 TIBC 170 mcg/dl 09/09/21 03:57 % Saturation 39.4 % (20-50) 09/09/21 03:57 Unsat Iron Binding 103 ug/dL (112-347) L 09/09/21 03:57 Total Bilirubin 1.1 mg/dL (0.15-1.2) 09/10/21 02:30 AST 32 U/L (0-32) 09/10/21 02:30 ALT 35 U/L (0-33) H 09/10/21 02:30 Alkaline Phosphatase 79 IU/L (35-105) 09/10/21 02:30 Lactate Dehydrogenase 654 U/L (135-214) H 09/08/21 04:13 Creatine Kinase 256 U/L (26-192) H 08/30/21 04:23 Troponin T Gen 5 ng/L 31 ng/L (0-10) H 08/27/21 07:25 C-Reactive Protein 25.5 mg/L (0.0-4.9) H 09/05/21 03:39 NT-Pro-B Natriuret Pep 226 pg/mL (0-125) H 08/18/21 05:41 NT-Pro-B Natriuret Pep 242 pg/mL (0-125) H 08/18/21 05:41 Total Protein 6.2 g/dL (6.6-8.7) L 09/10/21 02:30 Albumin 3.1 g/dL (3.5-5.2) L 09/10/21 02:30 Globulin 3.1 g/dL (1.3-4.6) 09/10/21 02:30 Triglycerides 174 mg/dL (0-150) H 08/30/21 04:23 Procalcitonin 0.38 ng/mL (0-0.5) 09/03/21 03:40 TSH 1.07 uIU/mL (0.27-4.20) 08/18/21 05:41 Random Cortisol 10.46 ug/dL (2.47-19.5) 09/02/21 05:00 Urine Color Yellow (Yellow) 09/07/21 08:00 Urine Appearance Clear (CLEAR) 09/07/21 08:00 Urine pH 5 (5-7) 09/07/21 08:00 Ur Specific Cherry 1.020 (1.005-1.030) 09/07/21 08:00 Urine Protein 1+ (Negative) H 09/07/21 08:00 Urine Glucose (UA) Norm (Normal) 09/07/21 08:00 Urine Ketones 1+ (Negative) H 09/07/21 08:00 Urine Blood Neg (Negative) 09/07/21 08:00 Urine Nitrate Negative (Negative) 09/07/21 08:00 Urine Bilirubin Neg (Negative) 09/07/21 08:00 Urine Urobilinogen 1 mg/dL (Negative) H 09/07/21 08:00 Ur Leukocyte Esterase Negative (Negative) 09/07/21 08:00 Urine RBC 0-4 /hpf (0-2) H 09/07/21 08:00 Urine WBC 0-4 /hpf (0-5) H 09/07/21 08:00 Ur Squamous Epith Cells Rare /hpf (0-5) 09/07/21 08:00 Amorphous Sediment Trace /hpf 09/07/21 08:00 Urine Bacteria 1+ /hpf (NONE) H 09/07/21 08:00 Urine Mucus Trace /hpf 09/07/21 08:00 Fluid Source 08/29/21 11:00 Fluid Color Cancelled 08/29/21 11:00 Fluid Appearance Cancelled 08/29/21 11:00 Fluid WBC Cancelled 08/29/21 11:00 Fluid RBC Cancelled 08/29/21 11:00 Fluid Tot Cell Count Cancelled 08/29/21 11:00 Fld Polynuclear WBCs # Cancelled 08/29/21 11:00 Fld Polynuclear WBCs % Cancelled 08/29/21 11:00 Fl Mononucl WBCs #(Auto) Cancelled 08/29/21 11:00 Fl Mononuclear % Auto Cancelled 08/29/21 11:00 Bronch Specimen Source L. lower lobe 08/29/21 11:00 Bronchial Fluid Color Colorless 08/29/21 11:00 Bronchial Fluid Appearance Hazy (CLEAR) 08/29/21 11:00 Bronchial Fluid WBC 400 /uL 08/29/21 11:00 Bronchial Fluid RBC 350 10^3/uL 08/29/21 11:00 Bronch Cells Counted 200 08/29/21 11:00 Bronchial Neutrophils 68.00 % (0.9-2.3) H 08/29/21 11:00 Bronchial Lymphocytes 11.00 % (10.71-12.91) 08/29/21 11:00 Bronchial Eosinophils 3.00 % (0.13-0.25) H 08/29/21 11:00 Bronchial Macrophages 18.00 % (83.6-86.8) L 08/29/21 11:00 Bronchial Diff Comment Yes 08/29/21 11:00 Vancomycin Trough 16.9 ug/mL (10-15) H 09/03/21 22:28 Pneumocystis Source 08/29/21 11:00 Pneumocystis DNA (PCR) No dna detected copies/mL 08/29/21 11:00 Pneumocyst jiroveci PCR Not detected 08/29/21 11:00 Beta-(1,3)-D-Glucan <31 pg/mL 08/29/21 19:50 B-(1,3)-D-Glucan Intrp Negative 08/29/21 19:50 Blood Type A Positive 09/07/21 07:55 Rho(D) Type Positive 09/07/21 07:55 Antibody Screen Negative 09/07/21 07:55 PEYTON, Poly Interpret Negative 09/07/21 19:44 Crossmatch See Detail 09/07/21 07:55 Micro: Microbiology 09/07/21 11:00 Gram Stain - Final Sputum - Endotracheal Tube Aspirate Sputum Culture - Preliminary Yeast 09/04/21 09:16 Blood Culture - Final Blood NO GROWTH AFTER 5 DAYS 09/04/21 04:20 Blood Culture - Final Blood NO GROWTH AFTER 5 DAYS A&P Assessment and plan (1) Acute respiratory failure with hypoxia: Status: Acute (2) COVID-19: Status: Acute (3) HTN (hypertension): Status: Acute (4) Hypothyroidism: Status: Acute (5) Acute respiratory distress syndrome (ARDS) due to 2019 novel coronavirus: Status: Acute (6) Anxiety: Status: Acute (7) Pulmonary embolism associated with COVID-19: Status: Acute (8) Goals of care, counseling/discussion: Status: Acute Plan #Acute hypoxic respiratory failure secondary to ARDS due to COVID-19 pneumonia/PE #Pulmonary embolism on elliquis #Hypertension #Hypothyroidism #Persistent low-grade fevers -Intubated 08/29/2021-extubated 09/07/2021 -completed 4 proning sessions-extubated to 8 L nasal cannula -Gradual deterioration-respiratory airway possible aspiration of secretions -Reintubated 09/10/2021 and post intubation bronchoscopy showed thick mucoid secretions in the left mainstem bronchus, left lower lobe and left upper lobe-suctioned right away and BAL sent for cultures - Currently still on precedex 1.2, Versed 6, fentanyl 150, propofol 80-still overbreathing the vent-we will place on paralytic -Post intubation ABG 7.3 2/50/88/28/96% on CMV 450/PEEP 10/FiO2 90%-Gradually will taper down FiO2 -We will follow ARDS protocol-low tidal volume and high PEEP strategy-if no improvement in FiO2 requirement-plan is to prone today evening -H&H stable at 8./25- haptoglobin Low 10; with normal bilirubin -less likely drug-induced hemolytic anemia. -At this time no evidence of DIC, no evidence of TTP, no evidence of autoimmune hemolytic anemia. - Low likelihood of HIT per heme, but already also transition to p.o. anticoagulation and currently on Eliquis; HIT antibody, MERRITT --results pending -Patient on steroids, Tocilizumab for COVID-19 initially and later for suspected drug-induced autoimmune hemolytic anemia while work-up being done-suspected PCP pneumonia-PCP PCR was -10 days ago and we resent with BAL again today-currently on methylprednisone 40 twice daily-we will taper it to 40 daily -So far all cultures negative -completed 10 days vancomycin and imipenem 09/07/2021; later patient WBC is stable around 16-17 K and no fever spikes for last 48 hours-we will start on Zosyn for possible aspiration yesterday -Completed 5-day course of remdesivir, dexamethasone, 1 dose of Tocilizumab, and received baricitinib few doses Discontinued in view of discontinued in view of possible secondary infection - CTA 08/18/2021 was negative for pulmonary embolism but secondary to markedly elevated dimer on full dose anticoagulation with Lovenox later switched to Eliquis 5 mg twice daily--due to worsening FiO2 requirements CTA was repeated 08/28/2021 which showed multiple small pulmonary emboli in first order to segmental branches of right pulmonary artery and worsening bilateral pneumonia; Currently on Eliquis 10 mg p.o. every 12 -Performed bronchoscopy post intubation on 08/29/2021 and BAL fluid was neutrophil predominant, cultures negative --DCed Bactrim as patient BAL negative for PCP PCR on 08/29/2021 -Sputum 08/29/2021 growing yeast-Patrica albicans-most likely commensal so DCed flucanazole; repeat sputum culture 09/07/2021 growing yeast-identification pending-due to worsening FiO2 requirements requiring intubation-started on micafungin - Echocardiogram demonstrated preserved EF, mild pulmonary hypertension -Patient is -9 L since admission and -2.4 L last 24 hours-on Lasix 40 mg twice daily-monitor input output/electrolytes/renal functions and try to keep net negative; K 3.3- decreased Lasix to 40 mg daily -had 2-3 bowel movements yesterday night -hold lactulose; continue senna docusate for bowel regimen -DVT prophylaxis : Elliquis -GI prophylaxis: PPI -Tube feeding: Pulmicort started 20 cc/hour and maximum 40 cc/hour -Full code -Family updated -Respiratory deterioration can be secondary to worsening Covid or superimposing aspiration pneumonia-we will continue to treat with broad-spectrum antibiotics and antifungal until all cultures are available, treat PE with Eliquis, will try to titrate down FiO2 as much as possible and consider trach and PEG (patient agreed for both these procedures prior to intubation in presence of her family) and long-term acute care facility placement as she may need more time for recovery. Patient conveyed to hospitalist, RN, RT taking care of the patient Attestations Medical Necessity Statement*: Acute hypoxic respiratory failure secondary to ARDS due to COVID-19 pneumonia/pulmonary embolism/aspiration pneumonia requiring high flow oxygen and close monitoring in ICU Time Spent in Patient Care: Greater than 35 minutes (>than 50% of time spent in counselling and/or direct pt care on unit). Critical Care Time: The high probability of a clinically significant, sudden or life threatening deterioration of the patient's [respiratory, infectious system(s) required my full and direct attention, intervention and personal management. The critical care time is as shown. This time is in addition to time spent performing any reported procedures but includes the following: [x] Data and vital sign review and interpretation [x] Patient assessment, examination and intervention [x] Documentation [x] Medication orders and management Critical Care Time (min): 120 Coding Level of Care Code Established Pt Acute Pipe Inspector for Tony Fwradha Patient Type Established History Comprehensive Exam Comprehensive Medical Decision Making High Complexity Diagnoses Acute respiratory failure with hypoxia J96.01 COVID-19 U07.1 HTN (hypertension) I10 Hypothyroidism E03.9 Acute respiratory distress syndrome (ARDS) due to 2019 novel coronavirus U07.1; J80 Anxiety F41.9 Pulmonary embolism associated with COVID-19 U07.1; I26.99 Goals of care, counseling/discussion Z71.89 Time Spent (min) 120
--- NOTE | 2021-09-10 11:13 | PC.NURSE ---
Dr. Leyva at bedside, gave v.o. to max sedation drips and start nimbex if needed to maintain adequate o2 sat and RR
[2021-09-10] MEDS: acetylcysteine 200 mg/mL SDV 4 mL 300 MG INHALATION (11:14)
[2021-09-10] MEDS: piperacillin-tazobactam 3.375 GM in sodium chloride 0.9% (plus) 50 ML IV ×2 (11:46→19:54)
[2021-09-10 11:47] LABS: ABG PCO2 54.2 mmHg (35-45); ABG PH Result 7.32 (7.35-7.45); Alveolar-Arterial Oxygen Gradi 64.4 mmHg (5-10); Arterial Blood Gas Hematocrit 25.6 % (37-47); Base Excess ABG 1.5 mmol/L (-2.0-2.0); Blood Gas Allen Test Pos; Blood Gas Operator Identificat CAK; Blood Gas Sample Site Brachial, left; Blood Gas Sample Type Arterial; HCO3 ABG 28.1 mmol/L (22-26); HGB O2 Sat 93.3 % (95-100); Ionized Calcium Level - ABG 1.3 mmol/L (1.1-1.4); Methemoglobin 0.5 % (0.4-1.5); Oxygen Device VENT; Oxygen Saturation ABG 96.6; Potassium Level - ABG 3.6 mmol/L (3.5-5.0); Total Hemoglobin 8.4 g/dL (12-16)
[2021-09-10] MEDS: cisatracurium 100 MG in sodium chloride 0.9% 50 ML IV (11:54)
--- NOTE | 2021-09-10 12:02 | PC.NURSE ---
Intubation Dr. Leyva spoke with family about patient's condition. patient was intubated approximately 0959. 2 mg versed 100 of Kory, 20 mg etomidate per v.o. from dr Leyva. ET tube 23 at the lip. family at bedside and updated after intubation
[2021-09-10] MEDS: propofol 1,000 MG/100 ML INJ 35.92 MG IV ×3 (12:40→17:35)
--- NOTE | 2021-09-10 12:52 | PC.OT ---
Hold OT eval due to patient on ventilation.
--- NOTE | 2021-09-10 12:55 | PC.OT ---
hold OT eval due to patient on ventilation.
[2021-09-10] MEDS: lidocaine 2% INJ 20 mL INJECTION (14:54)
[2021-09-10 15:12] LABS: LMWH High Dose 50 IU/ML 1 % Release; LMWH Low Dose 0.1 IU/ML 84 % Release; LMWH Low Dose 1.0 IU/ML 86 % Release; LMWH SRA Result POSITIVE (Negative)
[2021-09-10] MEDS: acetaminophen 325 mg Tablet 650 MG PO (15:52)
--- NOTE | 2021-09-10 16:18 | PC.NURSE ---
Dr. Hernandez notifed of temp of 101.7
[2021-09-10 16:38] LABS: ABG PCO2 50.8 mmHg (35-45); ABG PH Result 7.35 (7.35-7.45); Alveolar-Arterial Oxygen Gradi 35.4 mmHg (5-10); Arterial Blood Gas Hematocrit 27.5 % (37-47); Blood Gas Allen Test Pos; Blood Gas Operator Identificat CAK; Blood Gas Sample Site Radial, right; Blood Gas Sample Type Arterial; Carboxyhemoglobin 2.4 %THgb (0.4-20.1); HCO3 ABG 28.1 mmol/L (22-26); HGB O2 Sat 94.9 % (95-100); Ionized Calcium Level - ABG 1.3 mmol/L (1.1-1.4); Methemoglobin 0.9 % (0.4-1.5); Oxygen Device VENT; Oxygen Saturation ABG 98.2; Potassium Level - ABG 3.9 mmol/L (3.5-5.0)
[2021-09-10] MEDS: quetiapine 25 mg Tablet PO (17:03)
[2021-09-10] MEDS: ferrous gluconate 324 mg Tablet PO ×2 (17:03)
[2021-09-10] MEDS: cisatracurium 100 MG in sodium chloride 0.9% 50 ML 14.97 MG IV (17:32)
[2021-09-10] MEDS: norepinephrine 8 MG in dextrose 5 % 500 ML 7.62 MG IV (19:35)
[2021-09-10] MEDS: acetylcysteine 200 mg/mL SDV 4 mL INHALATION (20:00)
--- NOTE | 2021-09-10 20:35 | P.PN_ITS ---
Subjective Subjective: Condition further deteriorated overnight. Was placed on BiPAP this morning. Precedex drip at max rate due to anxiety. Did not tolerate BiPAP well. Switch to heated high flow cannula. Very weak. Weak. Ineffectual cough. Bothered by back pain. On discussion with her at bedside, subsequently with her and family she is agreeable to proceed with intubation, bronchoscopy, and subsequently trach eostomy, PEG. Vitals/I&O/Wt Last Vital Signs Temp 101.7 F H 09/10/21 16:19 Pulse 115 H 09/10/21 19:55 Resp 28 H 09/10/21 19:56 BP 110/66 09/10/21 17:31 Pulse Ox 96 09/10/21 19:56 09/10/21 09/10/21 09/10/21 06:59 14:59 22:59 Intake Total 30.301 / 677.801 51.376 / 51.376 336.807 / 388.183 Output Total 1600 / 3175 400 / 400 Balance -1569.699 / -2497.199 51.376 / 51.376 -63.193 / -11.817 Weight last 48 hrs Weight 99.79 kg Weight 104.099 kg Physical Exam Const: COMMON NORMALS: patient oriented x3 GENERAL APPEARANCE: cooperative and lethargic ORIENTATION/CONSCIOUSNESS: Yes lethargic OTHER: Weak HENMT: COMMON NORMALS: oropharynx normal Neck/C-Spine: COMMON NORMALS: no JVD Resp: AUSCULTATION: diminished lung sounds Cardio: COMMON NORMALS: no JVD, regular rhythm, S1 normal heart sound present, S2 normal heart sound present and No murmurs present (Cardio) RHYTHM: regular rhythm HEART SOUNDS: S1 normal heart sound present and S2 normal heart sound present GI: COMMON NORMALS: Normal to inspection, nondistended, normoactive bowel sounds present, Soft to palpation and non-tender PALPATION: Yes Soft to palpation Extremity: COMMON NORMALS: no joint enlargement and no pedal edema Neuro: COMMON NORMALS: patient oriented x3 and moves all extremities SENSORIUM/ORIENTATION: Yes lethargic Skin: COMMON NORMALS: no rashes or lesions noted GENERAL SKIN EXAM: no rashes or lesions noted Urinary Catheter Management: Gomez: Cath Placed During This Visit: yes Reason for Continuing Indwelling Catheter: Accurate Measurement of Urinary Output in Critically Ill Patients Urinary Catheter Date of Insertion: 08/29/21 Urinary Catheter Time of Insertion: 01:18 Data : 09/10/21 02:30 09/10/21 02:30 Micro: Microbiology 09/10/21 09:55 Gram Stain - Final Lung Left Lower Lobe A&P Assessment and plan (1) Acute respiratory distress syndrome (ARDS) due to 2019 novel coronavirus: Worsened respiratory failure, required BiPAP support, did not tolerate well, severe anxiety, required high rate of Precedex, received Ativan. Transiently on heated high flow, very weak, ineffectual cough. With deterioration due to aspiration pneumonia despite dysphagia diet. Agreed to proceed with intubation, bronchoscopy. Agreeable also subsequently to tracheo stomy, PEG. Left mainstem bronchus mucus noted on bronchoscopy. Underwent BAL. With worsened hypoxia oxygen requirement additional proning tonight. Recurrence of fever again 101.7 Fahrenheit. Started on Zosyn. Also growing yeast again, rare, but possibly resistant. Continue added caspofungin. For now to continue steroids, Solu-Medrol 40 mg twice daily. Difficulty with obtaining access. CVC for now continued. Continue assessment for LTAC. Status: Acute (2) COVID-19: As above. Completed course of Decadron. Remdesivir. Received Actemra 08/19. D-dimer level with mild improvement. Continue Eliquis per OG. Status: Acute (3) Hemolytic anemia: Appreciate hematology assessment and recommendations. No need for steroid for the anemia. At this time no evidence of DIC, no evidence of TTP, no evidence of autoimmune hemolytic anemia. Monitor hemoglobin. Transfuse as needed. Repeat iron saturation is good. Consider IV iron if needed. Low likelihood of HIT per heme, but already also transition to p.o. anticoagulation. Follow-up HIT antibody, MERRITT. Status: Acute (4) Septic shock: Off pressors. Status: Acute (5) Pulmonary embolism associated with COVID-19: Transitioned from argatroban to Eliquis. Monitor blood counts in the setting of concomitant hemolytic anemia Status: Acute (6) Ileus: Multiple bowel movements after enema. Status: Acute (7) HTN (hypertension): Status: Acute (8) Hypothyroidism: Continue with home dose of levothyroxine. TSH appreciated. Status: Acute (9) Anxiety: Continue home dose of topiramate, trazodone. Status: Acute (10) Goals of care, counseling/discussion: Status: Acute (11) Nonpalpable pulse: Left foot transiently no palpable pulses. On 09/09 palpable again. Unclear cause, possible transient vasoconstriction. Left arterial duplex ultrasound normal. Status: Acute Attestations Medical Necessity Statement*: Continue admission for assessment of hypoxic respiratory failure with severe COVID-19, additionally possible superimposed aspiration pneumonia. Coding Level of Care Code Acute [employer]person [employer] for [facility] Diagnoses Acute respiratory distress syndrome (ARDS) due to 2019 novel coronavirus U07.1; J80 COVID-19 U07.1 Hemolytic anemia D58.9 Septic shock A41.9; R65.21 Pulmonary embolism associated with COVID-19 U07.1; I26.99 Ileus K56.7 HTN (hypertension) I10 Hypothyroidism E03.9 Anxiety F41.9 Goals of care, counseling/discussion Z71.89 Nonpalpable pulse Z78.9
[2021-09-10] MEDS: propofol 1,000 MG/100 ML INJ 29.94 MG IV (20:51)
[2021-09-10 22:24] LABS: Anion Gap 15.8 (5-19); Blood Urea Nitrogen 20 mg/dL (6-20); Carbon Dioxide 26 mmol/L (22-29); Chloride 110 mmol/L (98-107); Glomerular Filtration Rate 163.4 mL/min (90-130); Glucose 174 mg/dL (65-115); Magnesium 2.3 mg/dL (1.7-2.3); Osmolality Calculated 313 mOsm/kg (285-295); Potassium 3.8 mmol/L (3.5-5.1); Sodium 148 mmol/L (136-145)
[2021-09-11] VITALS (55 sets, daily range): BP systolic 97–140; BP diastolic 59–87; PULSE 88–126; RESP 25–28; TEMP 36.5–38.3; O2SAT 89–98
[2021-09-11] MEDS: potassium chloride premix 100 ML 50 MEQ IV (00:11)
[2021-09-11] MEDS: propofol 1,000 MG/100 ML INJ 29.94 MG IV ×4 (00:11→09:33)
[2021-09-11] MEDS: levalbuterol 0.63 mg/3 mL Neb INHALATION ×7 (00:17→23:29)
[2021-09-11] MEDS: ipratropium 0.5 mg/2.5 mL Neb INHALATION ×7 (00:17→23:29)
[2021-09-11] MEDS: cisatracurium 100 MG in sodium chloride 0.9% 50 ML 14.97 MG IV ×2 (01:14→07:26)
[2021-09-11 05:05] LABS: Basophils % 0.2 %; Eosinophils % 0.1 %; Hematocrit 26.1 % (37.0-47.0); Hemoglobin 7.9 g/dL (11.5-15.3); Lymphocytes # 1.4 10^3/uL (0.8-4.8); Lymphocytes % 8.6 %; Mean Corpuscular HGB Conc 30.3 g/dL (30.0-36.0); Mean Corpuscular Hemoglobin 31.1 pg (28.0-34.0); Mean Corpuscular Volume 102.8 fl (81-99); Mean Platelet Volume 9.7 fL (7.4-10.4); Monocytes # 0.7 10^3/uL (0.2-0.9); Monocytes % 4.5 %; Neutrophils # 13.53 10^3/uL (1.8-7.7); Neutrophils % 83.2 %; Nucleated Red Blood Cells # 0.2 /100WBC; Nucleated Red Blood Cells % 1.5 %; Platelet Count 358 10^3/cmm (130-400); Red Blood Count 2.54 10^6/uL (4.1-5.3); Red Cell Distribution Width 19.1 % (12.1-15.1); White Blood Count 16.3 10^3/uL (4.0-10.0)
[2021-09-11 05:17] LABS: ABG PCO2 42.4 mmHg (35-45); ABG PH Result 7.44 (7.35-7.45); Arterial Blood Gas Hematocrit 39.5 % (37-47); Blood Gas Allen Test Pos; Blood Gas Operator Identificat JB; Blood Gas Sample Site Radial, left; Blood Gas Sample Type Arterial; HCO3 ABG 28.7 mmol/L (22-26); Oxygen Device VENT
[2021-09-11 05:28] LABS: Alanine Aminotransferase 111 U/L (0-33); Albumin Level 3.1 g/dL (3.5-5.2); Alkaline Phosphatase 67 IU/L (35-105); Anion Gap 12.8 (5-19); Aspartate Amino Transferase 116 U/L (0-32); Blood Urea Nitrogen 21 mg/dL (6-20); Calcium 9.3 mg/dL (8.5-10.5); Carbon Dioxide 27 mmol/L (22-29); Chloride 108 mmol/L (98-107); Globulin 3.1 g/dL (1.3-4.6); Glomerular Filtration Rate 163.4 mL/min (90-130); Glucose 156 mg/dL (65-115); Osmolality Calculated 304 mOsm/kg (285-295); Potassium 3.8 mmol/L (3.5-5.1); Sodium 144 mmol/L (136-145); Total Bilirubin 0.7 mg/dL (0.15-1.2); Total Protein 6.2 g/dL (6.6-8.7)
[2021-09-11] MEDS: apixaban 5 mg Tablet 10 MG PO ×2 (05:49→16:26)
[2021-09-11] MEDS: piperacillin-tazobactam 3.375 GM in sodium chloride 0.9% (plus) 50 ML IV ×3 (05:49→19:33)
[2021-09-11] MEDS: bisacodyl 5 mg Tablet 10 MG PO (08:00)
[2021-09-11] MEDS: zinc gluconate 50 mg Tablet PO (08:00)
[2021-09-11] MEDS: ascorbic acid 500 mg Tablet PO (08:00)
[2021-09-11] MEDS: quetiapine 25 mg Tablet PO ×2 (08:01→17:03)
[2021-09-11] MEDS: acetylcysteine 200 mg/mL SDV 4 mL INHALATION ×2 (08:01→19:39)
[2021-09-11] MEDS: levothyroxine 25 mcg Tablet PO (08:01)
[2021-09-11] MEDS: aspirin 81 mg EC Tablet PO (08:01)
[2021-09-11] MEDS: montelukast sodium 10 mg Tablet PO (08:01)
[2021-09-11] MEDS: FUROsemide 10 mg/mL SDV 4mL 40 MG IVP (08:01)
[2021-09-11] MEDS: sennosides-docusate Tablet 1 TAB PO (08:01)
[2021-09-11] MEDS: pantoprazole 40 mg SDV IVP (08:01)
[2021-09-11] MEDS: topiramate 100 mg Tablet PO (08:02)
[2021-09-11] MEDS: budesonide 0.5 mg/2 mL Neb INHALATION ×2 (08:02→19:39)
--- NOTE | 2021-09-11 10:27 | PC.OT ---
CHECKED WITH NURSING FOR OT EVALUATION ATTEMPT. PATIENT LAYING PRONE WHILE INTUBATED, PER NURSING, PATIENT IS CURRENTLY PARALYZED AND NO PLANS TO EXTUBATE AT THIS TIME. EVALUATION NOT APPROPRIATE AT THIS TIME. ATTEMPT TOMORROW.
--- NOTE | 2021-09-11 10:46 | PC.NURSE ---
Flipped supine from being proned. Dr. Leyva advised this nurse if oxygen requirements do not increase patient shouldn't prone again
--- NOTE | 2021-09-11 11:42 | PC.RESP ---
RT Shift Note Frequent safety and respiratory rounds continue. Orders completed as indicated. Patient monitored pre and post treatments throughout shift. Patient [Did.] tolerate treatments appropriately. Condition [.DidNotChange]. Patient and/or leather goods sales representative educated on respiratory treatment and medications. Patient and/or leather goods sales representative [unable to comprehend]. Will continue to monitor patient progress.
[2021-09-11] MEDS: propofol 1,000 MG/100 ML INJ 35.92 MG IV ×2 (12:37→15:56)
--- NOTE | 2021-09-11 16:25 | PM.PN ---
Subjective Subjective: Intubated, sedated, paralyzed, proned during my visit this morning Vitals/I&O/Wt Last Vital Signs Temp 98.6 F 09/11/21 07:01 Pulse 90 09/11/21 15:31 Resp 28 H 09/11/21 15:37 BP 110/63 09/11/21 14:01 Pulse Ox 91 09/11/21 15:37 09/11/21 09/11/21 09/11/21 06:59 14:59 22:59 Intake Total 420.291 / 1004.758 959.879 / 959.879 100 / 1059.879 Output Total 400 / 1550 Balance 20.291 / -545.242 959.879 / 959.879 100 / 1059.879 Weight last 48 hrs Weight 87.09 kg Weight 99.79 kg Physical Exam Const: COMMON NORMALS: patient oriented x3 GENERAL APPEARANCE: cooperative and lethargic ORIENTATION/CONSCIOUSNESS: Yes lethargic HENMT: COMMON NORMALS: oropharynx normal Neck/C-Spine: COMMON NORMALS: no JVD Resp: COMMON NORMALS: normal respiratory effort AUSCULTATION: diminished lung sounds Cardio: COMMON NORMALS: no JVD, regular rhythm, S1 normal heart sound present, S2 normal heart sound present and No murmurs present (Cardio) RHYTHM: regular rhythm HEART SOUNDS: S1 normal heart sound present and S2 normal heart sound present GI: COMMON NORMALS: Normal to inspection, nondistended, normoactive bowel sounds present, Soft to palpation and non-tender PALPATION: Yes Soft to palpation Extremity: COMMON NORMALS: no joint enlargement and no pedal edema OTHER: Cooler L foot Neuro: COMMON NORMALS: patient oriented x3 and moves all extremities SENSORIUM/ORIENTATION: Yes lethargic Skin: COMMON NORMALS: no rashes or lesions noted GENERAL SKIN EXAM: no rashes or lesions noted Urinary Catheter Management: Gomez: Cath Placed During This Visit: yes Reason for Continuing Indwelling Catheter: Accurate Measurement of Urinary Output in Critically Ill Patients Urinary Catheter Date of Insertion: 08/29/21 Urinary Catheter Time of Insertion: 01:18 Data : 09/11/21 04:30 09/11/21 04:30 Micro: Microbiology 09/07/21 11:00 Gram Stain - Final Sputum - Endotracheal Tube Aspirate Sputum Culture - Final Patrica albicans 09/10/21 09:55 Gram Stain - Final Lung Left Lower Lobe Bronchoalveolar Lavage Culture - Preliminary A&P Assessment and plan (1) Acute respiratory distress syndrome (ARDS) due to 2019 novel coronavirus: Proned overnight. Today oxygenation is better, FiO2 requirement at 45%. Discussed with pulmonology, will cut down steroid dose. When supine no additional proning for now. Start tube feeds. Continue. Antibiotic for now with Zosyn. Continue caspofungin. After extubation initially did well on nasal cannula, but worsened respiratory failure over 09/09, 09/10. With deterioration due to aspiration pneumonia despite dysphagia diet, likely aspiration Reintubated 09/10. Underwent, bronchoscopy. Agreeable also subsequently to tracheostomy, PEG. Left mainstem bronchus mucus noted on bronchoscopy. Underwent BAL. Also growing yeast again, rare, but possibly resistant. Continue added caspofungin. For now to continue steroids, Solu-Medrol 40 mg twice daily. Difficulty with obtaining access. CVC for now continued. Continue assessment for LTAC. Status: Acute (2) COVID-19: As above. Completed course of Decadron. Remdesivir. Received Actemra 08/19. D-dimer level with mild improvement. Continue Eliquis per OG. Status: Acute (3) Hemolytic anemia: Appreciate hematology assessment and recommendations. No need for steroid for the anemia. At this time no evidence of DIC, no evidence of TTP, no evidence of autoimmune hemolytic anemia. Monitor hemoglobin. Transfuse as needed. Repeat iron saturation is good. Consider IV iron if needed. Low likelihood of HIT per heme, but already also transition to p.o. anticoagulation. Follow-up HIT antibody, MERRITT. Status: Acute (4) Septic shock: Off pressors. Status: Acute (5) Pulmonary embolism associated with COVID-19: Transitioned from argatroban to Eliquis. Monitor blood counts in the setting of concomitant hemolytic anemia Status: Acute (6) Ileus: Multiple bowel movements after enema. Status: Acute (7) HTN (hypertension): Status: Acute (8) Hypothyroidism: Continue with home dose of levothyroxine. TSH appreciated. Status: Acute (9) Anxiety: Continue home dose of topiramate, trazodone. Status: Acute (10) Goals of care, counseling/discussion: Status: Acute (11) Nonpalpable pulse: Left foot transiently no palpable pulses. On 09/09 palpable again. Unclear cause, possible transient vasoconstriction. Left arterial duplex ultrasound normal. Status: Acute Attestations Medical Necessity Statement*: Continue admission for assessment and management of hypoxic respiratory failure associated with severe COVID-19, generalized deconditioning, superimposed aspiration pneumonia. Critical Care Time: The high probability of a clinically significant, sudden or life threatening deterioration of the patient's respiratory system(s) required my full and direct attention, intervention and personal management. The critical care time is as shown. 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
[2021-09-11] MEDS: ferrous gluconate 324 mg Tablet PO (17:03)
--- NOTE | 2021-09-11 17:54 | PC.NURSE ---
Clarified increased AST/ALT with slight jaundice noted and slight drop in Hgb with increased bruising with Dr. Oscar. no n.o. at this time
[2021-09-11] MEDS: propofol 1,000 MG/100 ML INJ 23.95 MG IV (21:20)
[2021-09-12] VITALS (63 sets, daily range): BP systolic 91–173; BP diastolic 51–100; PULSE 67–130; RESP 10–32; TEMP 37.5–38.8; O2SAT 90–98
[2021-09-12] MEDS: propofol 1,000 MG/100 ML INJ 23.95 MG IV ×5 (02:44→21:51)
[2021-09-12] MEDS: ipratropium 0.5 mg/2.5 mL Neb INHALATION ×6 (03:23→23:28)
[2021-09-12] MEDS: levalbuterol 0.63 mg/3 mL Neb INHALATION ×6 (03:23→23:28)
[2021-09-12 03:26] LABS: Basophils % 0.1 %; Hematocrit 25.8 % (37.0-47.0); Hemoglobin 7.9 g/dL (11.5-15.3); Lymphocytes # 1.2 10^3/uL (0.8-4.8); Lymphocytes % 5.3 %; Mean Corpuscular HGB Conc 30.6 g/dL (30.0-36.0); Mean Corpuscular Hemoglobin 31.7 pg (28.0-34.0); Mean Corpuscular Volume 103.6 fl (81-99); Mean Platelet Volume 9.9 fL (7.4-10.4); Monocytes # 0.9 10^3/uL (0.2-0.9); Monocytes % 3.8 %; Neutrophils # 20.48 10^3/uL (1.8-7.7); Neutrophils % 88.1 %; Nucleated Red Blood Cells # 0.3 /100WBC; Nucleated Red Blood Cells % 1.4 %; Platelet Count 416 10^3/cmm (130-400); Red Blood Count 2.49 10^6/uL (4.1-5.3); Red Cell Distribution Width 20.1 % (12.1-15.1); White Blood Count 23.3 10^3/uL (4.0-10.0)
[2021-09-12] MEDS: apixaban 5 mg Tablet 10 MG PO ×2 (03:39→16:02)
[2021-09-12] MEDS: piperacillin-tazobactam 3.375 GM in sodium chloride 0.9% (plus) 50 ML IV ×3 (03:39→20:02)
[2021-09-12] MEDS: acetaminophen 325 mg Tablet 650 MG PO ×3 (03:43→20:03)
[2021-09-12 03:47] LABS: Alanine Aminotransferase 79 U/L (0-33); Albumin Level 3.2 g/dL (3.5-5.2); Alkaline Phosphatase 78 IU/L (35-105); Anion Gap 14.5 (5-19); Aspartate Amino Transferase 48 U/L (0-32); Blood Urea Nitrogen 21 mg/dL (6-20); Calcium 9.1 mg/dL (8.5-10.5); Carbon Dioxide 27 mmol/L (22-29); Chloride 111 mmol/L (98-107); Globulin 2.9 g/dL (1.3-4.6); Glomerular Filtration Rate 126.3 mL/min (90-130); Glucose 172 mg/dL (65-115); Osmolality Calculated 315 mOsm/kg (285-295); Potassium 3.5 mmol/L (3.5-5.1); Sodium 149 mmol/L (136-145); Total Bilirubin 0.8 mg/dL (0.15-1.2); Total Protein 6.1 g/dL (6.6-8.7)
--- NOTE | 2021-09-12 04:01 | PC.NURSE ---
Patients condition deteriorating. Vent settings and FIO2 remain the same. Patients WBC increased and patient running fever overnight. Patient bathed and frequently repositioned, packed with ice packs to help maintain temperature levels.
[2021-09-12 04:32] LABS: ABG PCO2 37.7 mmHg (35-45); Arterial Blood Gas Hematocrit 23.7 % (37-47); Base Excess ABG 5.7 mmol/L (-2.0-2.0); Blood Gas Allen Test Pos; Blood Gas Sample Site Radial, right; Blood Gas Sample Type Arterial; Blood Gas Tidal Volume 0.45; HCO3 ABG 29.3 mmol/L (22-26); Oxygen Device VENT; PO2 ABG 61.5 mmHg (80.0-100.0)
[2021-09-12 05:07] LABS: Heparin Induced Platelet AB WEAK POSITIVE (NEGATIVE); Patient O.D 0.362
[2021-09-12] MEDS: budesonide 0.5 mg/2 mL Neb INHALATION ×2 (07:53→20:26)
[2021-09-12] MEDS: acetylcysteine 200 mg/mL SDV 4 mL INHALATION ×2 (07:53→20:25)
[2021-09-12] MEDS: aspirin 81 mg EC Tablet PO (08:37)
[2021-09-12] MEDS: pantoprazole 40 mg SDV IVP (08:37)
[2021-09-12] MEDS: ascorbic acid 500 mg Tablet PO (08:37)
[2021-09-12] MEDS: ferrous gluconate 324 mg Tablet PO ×2 (08:38→17:27)
[2021-09-12] MEDS: levothyroxine 25 mcg Tablet PO (08:39)
[2021-09-12] MEDS: zinc gluconate 50 mg Tablet PO (08:39)
[2021-09-12] MEDS: bisacodyl 5 mg Tablet 10 MG PO (08:39)
[2021-09-12] MEDS: FUROsemide 10 mg/mL SDV 4mL 40 MG IVP (08:39)
[2021-09-12] MEDS: montelukast sodium 10 mg Tablet PO (08:39)
[2021-09-12] MEDS: quetiapine 25 mg Tablet PO ×2 (08:40→17:27)
[2021-09-12] MEDS: topiramate 100 mg Tablet PO (08:40)
--- NOTE | 2021-09-12 11:41 | PC.OT ---
PER NURSING, HOLD EVALUATION THIS DATE DUE TO DECREASED MEDICAL STATUS SINCE YESTERDAY. NURSING REPORTS EASILY AGITATED AND NOT APPROPRIATE AT THIS TIME. PATIENT CONTINUES TO BE INTUBATED.
[2021-09-12] MEDS: dexmedeTOMIDine 0.9 % NaCL 400 MCG/100 ML PREMIX IV (12:04)
--- NOTE | 2021-09-12 12:06 | PC.RESP ---
RT Shift Note Frequent safety and respiratory rounds continue. Orders completed as indicated. Patient monitored pre and post treatments throughout shift. Patient [Did.] tolerate treatments appropriately. Condition [.DidNotChange]. Patient and/or telemarketing sales representative educated on respiratory treatment and medications. Patient and/or telemarketing sales representative [unable to comprehend]. Will continue to monitor patient progress.
--- NOTE | 2021-09-12 12:09 | PM.PN ---
Vitals/I&O/Wt Last Vital Signs Temp 101.4 F H 09/12/21 07:00 Pulse 88 09/12/21 11:12 Resp 29 H 09/12/21 11:12 BP 110/73 09/12/21 10:00 Pulse Ox 91 09/12/21 11:12 09/11/21 09/12/21 09/12/21 22:59 06:59 14:59 Intake Total 600.000 / 1590.629 570 / 2160.629 429.25 / 429.25 Output Total 600 / 600 650 / 1250 Balance 0 / 990.629 -80 / 910.629 429.25 / 429.25 Weight last 48 hrs Weight 90.945 kg Weight 87.09 kg Physical Exam Const: COMMON NORMALS: patient oriented x3 GENERAL APPEARANCE: cooperative and lethargic ORIENTATION/CONSCIOUSNESS: Yes lethargic OTHER: Weak HENMT: COMMON NORMALS: oropharynx normal Neck/C-Spine: COMMON NORMALS: no JVD Resp: COMMON NORMALS: normal respiratory effort AUSCULTATION: diminished lung sounds Cardio: COMMON NORMALS: no JVD, regular rhythm, S1 normal heart sound present, S2 normal heart sound present and No murmurs present (Cardio) RHYTHM: regular rhythm HEART SOUNDS: S1 normal heart sound present and S2 normal heart sound present GI: COMMON NORMALS: Normal to inspection, nondistended, normoactive bowel sounds present, Soft to palpation and non-tender PALPATION: Yes Soft to palpation Extremity: COMMON NORMALS: no joint enlargement and no pedal edema OTHER: Cooler L foot Neuro: COMMON NORMALS: patient oriented x3 and moves all extremities SENSORIUM/ORIENTATION: Yes lethargic Skin: COMMON NORMALS: no rashes or lesions noted GENERAL SKIN EXAM: no rashes or lesions noted Urinary Catheter Management: Gomez: Cath Placed During This Visit: yes Reason for Continuing Indwelling Catheter: Accurate Measurement of Urinary Output in Critically Ill Patients Urinary Catheter Date of Insertion: 08/29/21 Urinary Catheter Time of Insertion: 01:18 Data : 09/12/21 02:24 09/12/21 02:24 Micro: Microbiology 09/10/21 09:55 Gram Stain - Final Lung Left Lower Lobe Bronchoalveolar Lavage Culture - Final 09/07/21 07:50 Blood Culture - Final Blood NO GROWTH AFTER 5 DAYS 09/07/21 07:50 Blood Culture - Final Blood NO GROWTH AFTER 5 DAYS 09/07/21 11:00 Gram Stain - Final Sputum - Endotracheal Tube Aspirate Sputum Culture - Final Patrica albicans A&P Assessment and plan (1) Acute respiratory distress syndrome (ARDS) due to 2019 novel coronavirus: Oxygen requirement staying around 45% FiO2. Last night and today again spiking fever. Worsened leukocytosis today up to 23.3. Hold off any additional proning for now. If oxygenation remains good, consider stopping steroids in 1-2 days. Continue empiric antibiotic for now with Zosyn. Continue caspofungin. Follow-up cultures. So far no growth on additional cultures. PICC line requested, but not available on the weekend here. We will see if CVC at different access site can be obtained. With recurrence of fever, rising leukocytosis will obtain additional imaging with CT chest abdomen pelvis. After extubation initially did well on nasal cannula, but worsened respiratory failure over 09/09, 09/10. With deterioration due to aspiration pneumonia despite dysphagia diet, likely aspiration Reintubated 09/10. Underwent, bronchoscopy. Agreeable also subsequently to tracheostomy, PEG. Pending assessment for LTAC. Left mainstem bronchus mucus noted on bronchoscopy. Underwent BAL. Growing rare Patrica albicans on sputum culture. Continue added caspofungin. Discussed with her . Status: Acute (2) COVID-19: As above. Completed course of Decadron. Remdesivir. Received Actemra 08/19. D-dimer level with mild improvement. Continue Eliquis per OG. Status: Acute (3) Hemolytic anemia: HIT antibody weakly positive. Possible mild HIT. Would avoid heparin products. Continue Eliquis. Appreciate hematology assessment and recommendations. No need for steroid for the anemia. At this time no evidence of DIC, no evidence of TTP, no evidence of autoimmune hemolytic anemia. Monitor hemoglobin. Transfuse as needed. Repeat iron saturation is good. Consider IV iron if needed. Status: Acute (4) Septic shock: Off pressors. Status: Acute (5) Pulmonary embolism associated with COVID-19: Transitioned from argatroban to Eliquis. Monitor blood counts in the setting of concomitant hemolytic anemia Status: Acute (6) Ileus: Multiple bowel movements after enema. Status: Acute (7) HTN (hypertension): Status: Acute (8) Hypothyroidism: Continue with home dose of levothyroxine. TSH appreciated. Status: Acute (9) Anxiety: Continue home dose of topiramate, trazodone. Status: Acute (10) Goals of care, counseling/discussion: Status: Acute (11) Nonpalpable pulse: Left foot transiently no palpable pulses. On 09/09 palpable again. Unclear cause, possible transient vasoconstriction. Left arterial duplex ultrasound normal. Status: Acute Attestations Medical Necessity Statement*: Continue admission for assessment management of hypoxic respiratory failure, recurrent fever. Critical Care Time: The high probability of a clinically significant, sudden or life threatening deterioration of the patient's respiratory system(s), recurrent fever required my full and direct attention, intervention and personal management. The critical care time is as shown. 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
--- NOTE | 2021-09-12 12:26 | PC.SOCIAL ---
IMM Updated Updated pt's daughter on IMM. No questions voiced. Initialed, dated, & timed copy in chart.
--- NOTE | 2021-09-12 12:59 | PC.NUTR ---
When/if medically appropriate to resume TF, recommend starting Pulmicare 1.5 @ 10 mls/hr increasing 10 mls Q8H as tolerated to goal rate of 35 mls/hr with flushes 100 mls Q4H. Details in RD assessment.
--- NOTE | 2021-09-12 13:39 | PM.ACPR ---
Acute Procedures Central Line Placement: Right SC: Time out performed: Yes (The correct patient was identified and the procedure reviewed with the RN.) Patient placed on monitor/pulse ox: Yes prep: mask, gown and gloves Central line prep: Chlorhexidine scrub and sterile drapes applied Local anesthesia used: lidocaine 1% Amount of anesthesia used (ml): 3 Ultrasound used for placement: Yes Central line lumen inserted: triple Post procedure: sutured in place, good blood return, all ports aspirated, flushed, capped and sterile dressing applied Patient tolerated procedure: well Additional comments: Was asked by the inpatient hospital team to place a central line in this patient because of concern about her current central line being source of fever and infection. He required intravenous access for multiple IV medications. Patient is currently intubated, and mechanically ventilated, fully sedated. The family has given consent for the hospital team to place a new central line. I initially looked at her right femoral for access however even with ultrasound guidance is a unable to obtain access effectively at the right femoral vein. Therefore this site was abandoned. There is no evidence of ongoing bleeding etc. We moved to her right subclavian and the patient was prepared and draped in usual fashion. Using ultrasound guidance a triple lumen central line was placed. All ports withdrew fresh blood and flushed easily. The the line was sutured in place dressing was applied. Chest x-ray was ordered. It was noted throughout the procedure she maintained her previous vital signs with no evidence of tachycardia hypotension desaturation or vent alarms.
--- NOTE | 2021-09-12 14:03 | XRR_ITS ---
PROCEDURE INFORMATION: Exam: XR Chest Exam date and time: 09/12/2021 2:03 PM Age: 61 years old Clinical indication: Device placement; Other: Central line placement; Additional info: New central line placement TECHNIQUE: Imaging protocol: XR of the chest. Views: 1 view. COMPARISON: CR XR chest 1V portable [id number] 09/10/2021 10:45 AM FINDINGS: Tubes, catheters and devices: Interval placement of right PICC line which terminates at the proximal right atrium. Right internal jugular line, endotracheal tube, and enteric tube are stable positioning. Lungs: Ill-defined interstitial and airspace opacities again noted throughout both lungs. Pleural spaces: No pleural effusion. No pneumothorax. Heart/Mediastinum: Similar cardiomegaly. Bones/joints: Visualized osseous structures are intact. XR/XR chest 1V portable [id number] IMPRESSION: 1. Interval placement of right PICC line which terminates in the proximal right atrium. Stable positioning of lines and tubes. 2. Redemonstrated diffuse interstitial and airspace opacities within the lungs, no significant interval change.
--- NOTE | 2021-09-12 14:37 | PC.NURSE ---
Central line placed at 1300 on right chest area. Tolerated well
--- NOTE | 2021-09-12 17:05 | CTR_ITS ---
PROCEDURE INFORMATION: Exam: CT Chest Without Contrast; Diagnostic Exam date and time: 09/12/2021 5:05 PM Age: 61 years old Clinical indication: Fever; Additional info: Recurrent fevers TECHNIQUE: Imaging protocol: Diagnostic computed tomography of the chest without contrast. Radiation optimization: All CT scans at this facility use at least one of these dose optimization techniques: automated exposure control; mA and/or kV adjustment per patient size (includes targeted exams where dose is matched to clinical indication); or iterative reconstruction. COMPARISON: CT chest abd pel wo con 09/03/2021 10:07 AM RADIATION DOSE METRICS: Total DLP (mGy-cm): 1888.05 FINDINGS: Tubes, catheters and devices: A right internal jugular vein central venous line is placed with its tip at the level of the superior cavoatrial junction. A nasogastric tube is present with its tip in the proximal stomach. An endotracheal tube is placed with its tip 3.9 cm from the jasper. Lungs: There are irregular patchy bilateral ground-glass opacities present within the hemithoraces, findings suggesting a bilateral interstitial pneumonia. Pleural spaces: Unremarkable. No pneumothorax. No pleural effusion. Heart: Calcifications are seen in the coronary arteries. Aorta: Unremarkable. No aortic aneurysm. Lymph nodes: Unremarkable. No enlarged lymph nodes. Bones/joints: Unremarkable. No acute fracture. Soft tissues: Unremarkable. PROCEDURE INFORMATION: Exam: CT Abdomen And Pelvis Without Contrast Exam date and time: 09/12/2021 5:05 PM Age: 61 years old Clinical indication: Fever; Additional info: Recurrent fevers TECHNIQUE: Imaging protocol: Computed tomography of the abdomen and pelvis without contrast. Radiation optimization: All CT scans at this facility use at least one of these dose optimization techniques: automated exposure control; mA and/or kV adjustment per patient size (includes targeted exams where dose is matched to clinical indication); or iterative reconstruction. COMPARISON: CT chest abd pel wo con 09/03/2021 10:07 AM RADIATION DOSE METRICS: Total DLP (mGy-cm): 1888.05 FINDINGS: Tubes, catheters and devices: A Gomez catheter is present. Liver: Normal. No mass. Gallbladder and bile ducts: Normal. No calcified stones. No ductal dilation. Pancreas: Normal. No ductal dilation. Spleen: Normal. No splenomegaly. Adrenal glands: Normal. No mass. Kidneys and ureters: There is a stable 1.8 cm hypoattenuation cystic lesions seen on the anterior aspect of the right kidney compared with 09/03/2021. Stomach and bowel: Diverticula are present on the sigmoid colon. There are no inflammatory changes seen to suggest diverticulitis. Appendix: The appendix is not seen in today's examination. There are no inflammatory changes seen to suggest appendicitis. Intraperitoneal space: Unremarkable. No free air. No significant fluid collection. Vasculature: Unremarkable. No abdominal aortic aneurysm. Lymph nodes: Unremarkable. No enlarged lymph nodes. Urinary bladder: The bladder appears decompressed. Reproductive: Status post hysterectomy. Bones/joints: Unremarkable. No acute fracture. Soft tissues: Strandy opacities are seen in the subcutaneous fat and fascia in the left paraumbilical region, findings could represent edema or bruising. Other findings: Strandy opacities are seen in the perinephric fascia bilaterally compatible with chronic scarring. CT/CT chest abd pel wo con IMPRESSION: 1. Irregular patchy bilateral ground-glass opacities suggest a bilateral interstitial pneumonia. 2. Endotracheal tube tip 3.9 cm from the jasper. IMPRESSION: 1. There are no acute abdominal findings. 2. Stable 1.8 cm cyst in the anterior aspect of the right kidney. No further workup needed. 3. Diverticulosis of the sigmoid colon
--- NOTE | 2021-09-12 18:26 | PC.NURSE ---
Precedex stated this shift due to increased respiratory rate and agitation. All vitals WNL. Family at bedside throughout shift. PRN tylenol given for temp of 101.4
[2021-09-12 20:51] LABS: Glucose Point of Care 147 mg/dL (70-110)
[2021-09-13] VITALS (39 sets, daily range): BP systolic 113–146; BP diastolic 55–82; PULSE 61–105; RESP 14–27; TEMP 36.4–37.5; O2SAT 89–95
[2021-09-13] MEDS: dexmedeTOMIDine 0.9 % NaCL 400 MCG/100 ML PREMIX 8.07 MCG IV (00:09)
[2021-09-13 00:29] LABS: Glucose Point of Care 182 mg/dL (70-110)
[2021-09-13] MEDS: propofol 1,000 MG/100 ML INJ 23.95 MG IV ×4 (01:57→16:33)
[2021-09-13] MEDS: ipratropium 0.5 mg/2.5 mL Neb INHALATION ×6 (03:13→23:27)
[2021-09-13] MEDS: levalbuterol 0.63 mg/3 mL Neb INHALATION ×6 (03:13→23:27)
[2021-09-13 03:37] LABS: Basophils % 0.1 %; Eosinophils % 0.1 %; Hematocrit 24.3 % (37.0-47.0); Hemoglobin 7.2 g/dL (11.5-15.3); Lymphocytes # 1.3 10^3/uL (0.8-4.8); Mean Corpuscular HGB Conc 29.6 g/dL (30.0-36.0); Mean Corpuscular Hemoglobin 30.8 pg (28.0-34.0); Mean Corpuscular Volume 103.8 fl (81-99); Mean Platelet Volume 9.7 fL (7.4-10.4); Monocytes # 0.5 10^3/uL (0.2-0.9); Monocytes % 3.5 %; Neutrophils % 83.2 %; Nucleated Red Blood Cells # 0.2 /100WBC; Nucleated Red Blood Cells % 1.2 %; Platelet Count 354 10^3/cmm (130-400); Red Blood Count 2.34 10^6/uL (4.1-5.3); White Blood Count 14.3 10^3/uL (4.0-10.0)
[2021-09-13 03:55] LABS: Alanine Aminotransferase 58 U/L (0-33); Albumin Level 2.9 g/dL (3.5-5.2); Alkaline Phosphatase 63 IU/L (35-105); Anion Gap 11.6 (5-19); Aspartate Amino Transferase 29 U/L (0-32); Blood Urea Nitrogen 20 mg/dL (6-20); Calcium 8.8 mg/dL (8.5-10.5); Carbon Dioxide 29 mmol/L (22-29); Chloride 108 mmol/L (98-107); Glomerular Filtration Rate 227.7 mL/min (90-130); Glucose 207 mg/dL (65-115); Osmolality Calculated 309 mOsm/kg (285-295); Potassium 3.6 mmol/L (3.5-5.1); Sodium 145 mmol/L (136-145); Total Bilirubin 0.6 mg/dL (0.15-1.2); Total Protein 5.9 g/dL (6.6-8.7)
[2021-09-13] MEDS: piperacillin-tazobactam 3.375 GM in sodium chloride 0.9% (plus) 50 ML IV ×3 (04:21→20:12)
[2021-09-13] MEDS: apixaban 5 mg Tablet 10 MG PO ×2 (04:21→16:26)
[2021-09-13 07:38] LABS: Hematocrit 24.3 % (37.0-47.0); Hemoglobin 7.2 g/dL (11.5-15.3)
[2021-09-13] MEDS: montelukast sodium 10 mg Tablet PO (08:14)
[2021-09-13] MEDS: bisacodyl 5 mg Tablet 10 MG PO (08:14)
[2021-09-13] MEDS: quetiapine 25 mg Tablet PO (08:14)
[2021-09-13] MEDS: levothyroxine 25 mcg Tablet PO (08:14)
[2021-09-13] MEDS: aspirin 81 mg EC Tablet PO (08:14)
[2021-09-13] MEDS: ascorbic acid 500 mg Tablet PO (08:14)
[2021-09-13] MEDS: ferrous gluconate 324 mg Tablet PO ×2 (08:14→16:26)
[2021-09-13] MEDS: topiramate 100 mg Tablet PO (08:15)
[2021-09-13] MEDS: zinc gluconate 50 mg Tablet PO (08:15)
[2021-09-13] MEDS: FUROsemide 10 mg/mL SDV 4mL 40 MG IVP (08:15)
[2021-09-13] MEDS: pantoprazole 40 mg SDV IVP (08:15)
[2021-09-13] MEDS: budesonide 0.5 mg/2 mL Neb INHALATION ×2 (08:19→20:07)
[2021-09-13] MEDS: acetylcysteine 200 mg/mL SDV 4 mL INHALATION ×2 (08:20→20:07)
--- NOTE | 2021-09-13 09:14 | PC.CHAP ---
Pastoral Care Encounter/Spiritual Assessment Type of Contact [] Declined welding production supervisor visit [] Patient/Family/Request visit [] Outpatient visit [] Follow-up visit [] Physician referral [] Code/Alert [x] Routine visit [] Staff referral [] Actively dying [x] Patient sleeping [] Family support [] [] Out of room [] Palliative care [] [x] Receiving care in room [] Pre-surgical visit [] Trauma [] Long length of stay [x] ICU visit [x] Other: vent Relational/Emotional Strength [] Patient feels connected with others/family/visitors/staff [] Distress [] Loneliness/isolation [] Abandonment Spirituality of Patient [] Person of Heydi [] Attends Restorationism of their Heydi [] Believes in Prayer [] Reads Bible or Mu-Ism materials [] There are Spiritual issues to be addressed Secretary To The Vice President Interventions [x] Prayer [] Active listening [] Non-anxious presence [] Spiritual/emotional support [] Crisis/trauma care [] Spiritual counseling [] Bereavement support [] Provided bereavement packet [] Provided Bible/devotional materials [] Provided toy/stuffed animal, coloring book to patient or family member [] Provided Communion [] Anointing/[place] [] Salvation [x] Completed spiritual assessment [] Other: Impact on Illness or Injury [] Angry [] Fearful [] Anxious [] Often cries [] Exhaustion [] Unable to work [] Unable to attend druze [] Unable to walk/stand [] Unable to read [] Unable to drive [] Unable to eat/drink [] Unable to sleep [] Unable to be with family [] Patient intubated [] Other: Summary Time spent with patient
[2021-09-13 09:49] LABS: INR 1.53 (0.8-1.2); Partial Thromboplastin Time 30.1 SECONDS (23.9-36.7)
[2021-09-13 09:50] LABS: Fibrinogen 530 mg/dL (174-498)
[2021-09-13 09:55] LABS: D Dimer 1.24 ug/mIFEU (0-0.59)
--- NOTE | 2021-09-13 10:45 | PM.PN ---
Subjective Subjective: Running noticed low hemoglobin, repeat H&H is 7.2 Hemodynamically stable Not on any vasopressors With her daughter Evelina first and then a group meeting with Evelina, Mr. Uriostegui in a separate room Mr. Uriostegui is stating that he does not want her to be transferred to LTAC, they would not want her to suffer anymore, they do not want tracheostomy or PEG tube placement is requesting if we can extubate her here and reevaluate in case of any worsening pursue comfort measures and no aggressive intervention at all including defibrillation, reintubation, chest compressions This was conveyed to the nurse and the professor of french Repeat DIC panel positive No thrombocytopenia This morning she is on Precedex 0.1 which was turned off because of bradycardia, propofol 40, Versed 6, apparently 150, 45% FiO2 PEEP 5 Vitals/I&O/Wt Last Vital Signs Temp 97.5 F L 09/13/21 08:01 Pulse 92 09/13/21 10:01 Resp 27 H 09/13/21 08:28 BP 119/69 09/13/21 10:01 Pulse Ox 92 09/13/21 10:01 09/12/21 09/13/21 09/13/21 22:59 06:59 14:59 Intake Total 766.131 / 1303.272 722.109 / 2025.381 400 / 400 Output Total 560 / 1560 390 / 1950 Balance 206.131 / -256.728 332.109 / 75.381 400 / 400 Weight last 48 hrs Weight 91.626 kg Weight 90.945 kg Physical Exam Narrative: Patient intubated and sedated after sedation vacation she is starting to open her eyes and wiggle her toes Not able to follow commands completely Bilateral cyst of breath sounds Dilute yellow-colored urine in the Gomez catheter in the bag Abdomen soft Does not look fluid overloaded Bilateral assisted breath sounds Extremities are warm to touch no signs of vascular ischemia/ischemic ulcers 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 Crusting of blood around mouth Urinary Catheter Management: Gomez: Cath Placed During This Visit: yes Reason for Continuing Indwelling Catheter: Accurate Measurement of Urinary Output in Critically Ill Patients Urinary Catheter Date of Insertion: 08/29/21 Urinary Catheter Time of Insertion: 01:18 Data : 09/13/21 07:30 09/13/21 02:58 Micro: Microbiology 09/12/21 16:30 Catheter Tip Culture - Preliminary Central Line 09/10/21 09:55 Gram Stain - Final Lung Left Lower Lobe Bronchoalveolar Lavage Culture - Final 09/07/21 07:50 Blood Culture - Final Blood NO GROWTH AFTER 5 DAYS 09/07/21 07:50 Blood Culture - Final Blood NO GROWTH AFTER 5 DAYS A&P Assessment and plan (1) Pulmonary embolism associated with COVID-19: Status: Acute (2) Acute respiratory distress syndrome (ARDS) due to 2019 novel coronavirus: Status: Acute (3) Hemolytic anemia: Status: Acute Plan Had 2 family meetings today is leaning towards avoiding tracheostomy, PEG tube placement and LTAC placement(stating that patient will be very noncompliant and she would not want to live with such a poor quality of life and she will not cooperate with physical therapy or occupational therapy at that facility and it is hard for the family to see her on a daily basis as it will be 2 hours away from the home) Agreeable for use of BiPAP and in case of further worsening will pursue comfort measures, CODE STATUS changed to DNR/DNI and possibly comfort measures in case of further worsening. Assistant To The Ceo had another family meeting later in the day where CT scan findings were shared with the family, current vent settings & good lung compliance, Plan is to try weaning trial tomorrow and extubate to BiPAP and find a rehab for her recovery Detailed family meeting was conducted this morning, family is well aware that reintubation could be pretty detrimental and cause worsening of hypoxic respiratory failure leading to PEA or cardiac arrest. Questions were answered to the satisfaction both and her daughter Evelina in agreement with above-mentioned plan. Currently patient is opening her eyes on sedation vacation We will reevaluate with the help of RT if patient is suitable for extubation DNR/DNI Tube feeds on hold Would hold off on blood transfusion today CT chest and pelvis unremarkable DIC panel requested APTT is normal does not fit the criteria of DIC completely Currently on Eliquis 10 twice daily Attestations Medical Necessity Statement*: Continue ICU management Time Spent in Patient Care: 50mins Critical Care Time: 25mins Coding Level of Care Code Acute Electronic Sensing Equipment Assembler for [facility] Fwd Diagnoses Pulmonary embolism associated with COVID-19 U07.1; I26.99 Acute respiratory distress syndrome (ARDS) due to 2019 novel coronavirus U07.1; J80 Hemolytic anemia D58.9
[2021-09-13] MEDS: FUROsemide 10 mg/mL SDV 2mL 20 MG IVP (13:10)
[2021-09-13] MEDS: dexmedeTOMIDine 0.9 % NaCL 400 MCG/100 ML PREMIX 5.38 MCG IV (16:32)
--- NOTE | 2021-09-13 18:29 | PC.NURSE ---
sedation titrated down this shift. Patient is able to open eyes and follow commands.
[2021-09-13 18:30] LABS: Hematocrit 25.6 % (37.0-47.0); Hemoglobin 7.7 g/dL (11.5-15.3)
--- NOTE | 2021-09-13 19:37 | P.PN_ITS ---
Subjective Subjective: - pt seen at bedside multiple times - sedated with fentanyl 150, versed 6, propofol 40, precedex - following commands; plan is to taper versed, followed by fentanyl taper - curretnly requiring fio2 45% - coagulation parameters - show evidence of mild DIC but fibrinogen is within normal limits. -labs and imaging reviewed - CT chest from yesterday showed no change in bilateral extensive GGOS compared to 10 days ago - however on ventilator her P plateau was 17, fiow 45% and compliance was around 30-35 - Cultures so far negative except sputum showed Patrica Albicans - she had fever spikes over last 36 hrs and new cultures are pending, Covered with Zosyn for her recent aspiration; her right IJ was removed and new right subclavian line placed 09/12/21 - Had extensive discussion with Daughter Ms Hoyt, pts Mr. Vanessa Uriostegui at bedside about goals of care - explained that once we taper off sedation and if she does well on breathing trial - we will extubate her in next 24-48 hrs and she need aggressive physical therapy and pulmonary rehabilitation. Given her extensive COVID intertitial disease - she may need prolonged rehab for recovery while chances of failing extubation are there given her aspiration risk. Prior to intubation we even discussed about possible trach and PEG - but family including NOK does not want trach/PEG/Reintubation/Resuscitation. For now the decision is to continue present care and extubate when it is appropriate - plan is to decide on rehab placement depending on her recovery. - meanwhile, we will continue to taper down sedation and continue evaluation for extubation. Medications: Reviewed: Yes Vitals/I&O/Wt Last Vital Signs Temp 99.1 F 09/13/21 17:00 Pulse 95 09/13/21 18:00 Resp 25 H 09/13/21 18:12 BP 115/55 09/13/21 18:00 Pulse Ox 94 09/13/21 18:12 09/13/21 09/13/21 09/13/21 06:59 14:59 22:59 Intake Total 722.109 / 2025.381 628.886 / 628.886 665.735 / 1294.621 Output Total 390 / 1950 1000 / 1000 Balance 332.109 / 75.381 628.886 / 628.886 -334.265 / 294.621 Weight last 48 hrs Weight 202 lb Weight 200 lb 8 oz Physical Exam Narrative: PHYSICAL EXAM: Post intubation General: lying in bed, sedated and intubated. HEENT:NCAT, PERRLA, EOMI Neck: Supple Lungs: Bilateral diffuse crepitations Heart: s1/s2, RRR Abd: soft, NT, ND, BS + Normoactive Extremities: No edema HOSPITALIST PHYSICIAN: sedated and limited HOSPITALIST PHYSICIAN exam possible. SKIN: no rash LDA: # Right subclavian 09/12/21 Urinary Catheter Management: Gomez: Cath Placed During This Visit: yes Reason for Continuing Indwelling Catheter: Accurate Measurement of Urinary Output in Critically Ill Patients Urinary Catheter Date of Insertion: 08/29/21 Urinary Catheter Time of Insertion: 01:18 Data : 09/13/21 18:17 09/13/21 02:58 Other Labs: Radiology Impressions Chest CTA 08/28/21 08:21 IMPRESSION: 1. Multiple small pulmonary emboli in 1st order through segmental branches of the right pulmonary artery. 2. Bilateral pneumonia, appears worsened when compared to the prior study. COMMENTS: Consistent with the [employer]'s Incidental Findings Committee white paper (J Am Margie Radiol 2018): Any incidental renal lesion less than 1 cm or classified as too small to characterize, or any incidental cystic renal lesion characterized as simple-appearing, is likely benign. No follow-up imaging is recommended for these lesions per consensus recommendations based on imaging criteria. Duplex Scan Lower Extremity Artery 09/08/21 10:21 IMPRESSION: No stenosis or occlusion. Chest X-Ray 09/12/21 14:03 IMPRESSION: 1. Interval placement of right PICC line which terminates in the proximal right atrium. Stable positioning of lines and tubes. 2. Redemonstrated diffuse interstitial and airspace opacities within the lungs, no significant interval change. Chest/Abdomen/Pelvis CT 09/12/21 17:05 IMPRESSION: 1. Irregular patchy bilateral ground-glass opacities suggest a bilateral interstitial pneumonia. 2. Endotracheal tube tip 3.9 cm from the jasper. IMPRESSION: 1. There are no acute abdominal findings. 2. Stable 1.8 cm cyst in the anterior aspect of the right kidney. No further workup needed. 3. Diverticulosis of the sigmoid colon Laboratory Results WBC 14.3 10^3/uL (4.0-10.0) H 09/13/21 02:58 Corrected WBC 54.7 10^3/cmm (4.8-10.8) H 09/03/21 03:40 RBC 2.34 10^6/uL (4.1-5.3) L 09/13/21 02:58 Hgb 7.7 g/dL (11.5-15.3) L 09/13/21 18:17 Hct 25.6 % (37.0-47.0) L 09/13/21 18:17 MCV 103.8 fl (81-99) H 09/13/21 02:58 MCH 30.8 pg (28.0-34.0) 09/13/21 02:58 MCHC 29.6 g/dL (30.0-36.0) L 09/13/21 02:58 RDW 20.0 % (12.1-15.1) H 09/13/21 02:58 Plt Count 354 10^3/cmm (130-400) 09/13/21 02:58 MPV 9.7 fL (7.4-10.4) 09/13/21 02:58 Neut % (Auto) 83.2 % 09/13/21 02:58 Lymph % (Auto) 9.0 % 09/13/21 02:58 Pine % (Auto) 3.5 % 09/13/21 02:58 Eos % (Auto) 0.1 % 09/13/21 02:58 Baso % (Auto) 0.1 % 09/13/21 02:58 Reticulocyte % (Auto) 7.6 % (0.5-2.0) H 09/08/21 04:13 Neut # (Auto) 11.90 10^3/uL (1.8-7.7) H 09/13/21 02:58 Lymph # (Auto) 1.3 10^3/uL (0.8-4.8) 09/13/21 02:58 Pine # (Auto) 0.5 10^3/uL (0.2-0.9) 09/13/21 02:58 Eos # (Auto) 0.0 10^3/uL (0.0-0.8) 09/13/21 02:58 Baso # (Auto) 0.0 10^3/uL (0.0-0.1) 09/13/21 02:58 Nucleated RBC % (auto) 1.2 % 09/13/21 02:58 Total Counted 100 (0-100) 09/06/21 15:45 Atypical Lymphs % 0.0 % (0-5) 09/06/21 15:45 Absolute Neutrophils 13.7 10^3/cmm (1.4-6.5) H 09/06/21 15:45 Segmented Neutrophils 67 % 09/06/21 15:45 Abs Segm Neuts (Man) 11.7 10/cmm (1.6-7.1) H 09/06/21 15:45 Band Neutrophils 11.0 % 09/06/21 15:45 Abs Band Neuts (Man) 1.9 10^3/cmm (0.0-1.2) H 09/06/21 15:45 Absolute Lymphocytes 0.9 10^3/cmm (1.2-3.4) L 09/06/21 15:45 Lymphocytes (Manual) 5 % 09/06/21 15:45 Monocytes (Manual) 5.0 % 09/06/21 15:45 Absolute Monocytes 0.9 10^3/cmm (0.1-0.6) H 09/06/21 15:45 Eosinophils (Manual) 2 % 09/06/21 15:45 Absolute Eosinophils 0.3 10^3/cmm (0.0-0.7) 09/06/21 15:45 Basophils (Manual) 0.0 % 09/06/21 15:45 Absolute Basophils 0.0 10^3/cmm (0.0-0.2) 09/06/21 15:45 Metamyelocytes 8.0 % 09/06/21 15:45 Myelocytes 2.0 % 09/06/21 15:45 Nucleated RBCs 3.0 /100WBC (0-1) H 09/05/21 17:11 Nucleated RBCs # 0.2 /100WBC 09/13/21 02:58 Differential Comment Cancelled 08/29/21 11:00 Smudge Cells Trace 09/06/21 15:45 Platelet Estimate Normal (Normal) 09/06/21 15:45 Giant Platelets 1+ H 09/05/21 17:11 Polychromasia 1+ H 09/06/21 15:45 Hypochromasia 1+ H 09/06/21 15:45 Poikilocytosis Trace 09/06/21 15:45 Anisocytosis 2+ H 09/06/21 15:45 Macrocytosis Trace 09/06/21 15:45 Retic Production Index 4.81 09/08/21 04:13 Haptoglobin 10.0 mg/L (30-200) L 09/08/21 04:13 Heparin Require Pat 0.362 09/07/21 14:33 PT 18.80 SECONDS (12.1-14.9) H 09/13/21 09:25 INR 1.53 (0.8-1.2) H 09/13/21 09:25 APTT 30.1 SECONDS (23.9-36.7) 09/13/21 09:25 Fibrinogen 530 mg/dL (174-498) H 09/13/21 09:25 Fibrin Degrad Products Pos, 10-40 ug/mL (NEG) H 09/13/21 09:25 D-Dimer 1.24 ug/mIFEU (0-0.59) H 09/13/21 09:25 Specimen Type Arterial 09/12/21 04:21 Sample Site Radial, right 09/12/21 04:21 ABG pH 7.50 (7.35-7.45) H 09/12/21 04:21 ABG pCO2 37.7 mmHg (35-45) 09/12/21 04:21 ABG pO2 61.5 mmHg (80.0-100.0) L 09/12/21 04:21 ABG HCO3 29.3 mmol/L (22-26) H 09/12/21 04:21 ABG O2 Saturation 98.2 09/10/21 16:26 ABG Base Excess 5.7 mmol/L (-2.0-2.0) H 09/12/21 04:21 Suraj Test Pos 09/12/21 04:21 A-a O2 Gradient 35.4 mmHg (5-10) H 09/10/21 16:26 Hematocrit 23.7 % (37-47) L 09/12/21 04:21 Hgb O2 Saturation 94.9 % (95-100) L 09/10/21 16:26 Carboxyhemoglobin 2.4 %THgb (0.4-20.1) 09/10/21 16:26 Methemoglobin 0.9 % (0.4-1.5) 09/10/21 16:26 Total Hemoglobin 9.0 g/dL (12-16) L 09/10/21 16:26 Sodium 148.0 mmol/L (131-143) H 09/10/21 16:26 Potassium 3.9 mmol/L (3.5-5.0) 09/10/21 16:26 Glucose 157.0 mg/dL (70-115) H 09/10/21 16:26 Ionized Calcium 1.3 mmol/L (1.1-1.4) 09/10/21 16:26 O2 Delivery Device Vent 09/12/21 04:21 O2 Liters/Min 45.0 % 09/09/21 12:43 FiO2 45.0 % 09/12/21 04:21 Tidal Volume 0.45 09/12/21 04:21 PEEP 5.0 cmH20 09/12/21 04:21 Stripping Cutter And Winder ID ellpe 09/12/21 04:21 Sodium 145 mmol/L (136-145) 09/13/21 02:58 Potassium 3.6 mmol/L (3.5-5.1) 09/13/21 02:58 Chloride 108 mmol/L (98-107) H 09/13/21 02:58 Carbon Dioxide 29 mmol/L (22-29) 09/13/21 02:58 Anion Gap 11.6 (5-19) 09/13/21 02:58 BUN 20 mg/dL (6-20) 09/13/21 02:58 Creatinine 0.3 mg/dL (0.5-0.9) L 09/13/21 02:58 GFR Calculation 227.7 mL/min (90-130) H 09/13/21 02:58 Glucose 207 mg/dL (65-115) H 09/13/21 02:58 POC Glucose 182 mg/dL (70-110) H 09/13/21 00:03 Calculated Osmolality 309 mOsm/kg (285-295) H 09/13/21 02:58 Lactic Acid 1.3 mmol/L (0.5-2.2) 08/18/21 06:49 Calcium 8.8 mg/dL (8.5-10.5) 09/13/21 02:58 Phosphorus 2.7 mg/dL (2.5-4.5) 08/19/21 04:08 Magnesium 2.3 mg/dL (1.7-2.3) 09/10/21 22:00 Iron 67 ug/dL (37-145) 09/09/21 03:57 TIBC 170 mcg/dl 09/09/21 03:57 % Saturation 39.4 % (20-50) 09/09/21 03:57 Unsat Iron Binding 103 ug/dL (112-347) L 09/09/21 03:57 Total Bilirubin 0.6 mg/dL (0.15-1.2) 09/13/21 02:58 AST 29 U/L (0-32) 09/13/21 02:58 ALT 58 U/L (0-33) H 09/13/21 02:58 Alkaline Phosphatase 63 IU/L (35-105) 09/13/21 02:58 Lactate Dehydrogenase 654 U/L (135-214) H 09/08/21 04:13 Creatine Kinase 256 U/L (26-192) H 08/30/21 04:23 Troponin T Gen 5 ng/L 31 ng/L (0-10) H 08/27/21 07:25 C-Reactive Protein 25.5 mg/L (0.0-4.9) H 09/05/21 03:39 NT-Pro-B Natriuret Pep 226 pg/mL (0-125) H 08/18/21 05:41 NT-Pro-B Natriuret Pep 242 pg/mL (0-125) H 08/18/21 05:41 Total Protein 5.9 g/dL (6.6-8.7) L 09/13/21 02:58 Albumin 2.9 g/dL (3.5-5.2) L 09/13/21 02:58 Globulin 3.0 g/dL (1.3-4.6) 09/13/21 02:58 Triglycerides 174 mg/dL (0-150) H 08/30/21 04:23 LMW Hep Low 0.1 IU/mL 84 % Release 09/07/21 14:33 LMW Hep Low 1.0 IU/mL 86 % Release 09/07/21 14:33 LMW Hep High 50 IU/ML 1 % Release 09/07/21 14:33 MERRITT LMWH Result Positive (Negative) A 09/07/21 14:33 Procalcitonin 0.38 ng/mL (0-0.5) 09/03/21 03:40 TSH 1.07 uIU/mL (0.27-4.20) 08/18/21 05:41 Random Cortisol 10.46 ug/dL (2.47-19.5) 09/02/21 05:00 Urine Color Yellow (Yellow) 09/07/21 08:00 Urine Appearance Clear (CLEAR) 09/07/21 08:00 Urine pH 5 (5-7) 09/07/21 08:00 Ur Specific Gautier 1.020 (1.005-1.030) 09/07/21 08:00 Urine Protein 1+ (Negative) H 09/07/21 08:00 Urine Glucose (UA) Norm (Normal) 09/07/21 08:00 Urine Ketones 1+ (Negative) H 09/07/21 08:00 Urine Blood Neg (Negative) 09/07/21 08:00 Urine Nitrate Negative (Negative) 09/07/21 08:00 Urine Bilirubin Neg (Negative) 09/07/21 08:00 Urine Urobilinogen 1 mg/dL (Negative) H 09/07/21 08:00 Ur Leukocyte Esterase Negative (Negative) 09/07/21 08:00 Urine RBC 0-4 /hpf (0-2) H 09/07/21 08:00 Urine WBC 0-4 /hpf (0-5) H 09/07/21 08:00 Ur Squamous Epith Cells Rare /hpf (0-5) 09/07/21 08:00 Amorphous Sediment Trace /hpf 09/07/21 08:00 Urine Bacteria 1+ /hpf (NONE) H 09/07/21 08:00 Urine Mucus Trace /hpf 09/07/21 08:00 Fluid Source 08/29/21 11:00 Fluid Color Cancelled 08/29/21 11:00 Fluid Appearance Cancelled 08/29/21 11:00 Fluid WBC Cancelled 08/29/21 11:00 Fluid RBC Cancelled 08/29/21 11:00 Fluid Tot Cell Count Cancelled 08/29/21 11:00 Fld Polynuclear WBCs # Cancelled 08/29/21 11:00 Fld Polynuclear WBCs % Cancelled 08/29/21 11:00 Fl Mononucl WBCs #(Auto) Cancelled 08/29/21 11:00 Fl Mononuclear % Auto Cancelled 08/29/21 11:00 Bronch Specimen Source L. lower lobe 08/29/21 11:00 Bronchial Fluid Color Colorless 08/29/21 11:00 Bronchial Fluid Appearance Hazy (CLEAR) 08/29/21 11:00 Bronchial Fluid WBC 400 /uL 08/29/21 11:00 Bronchial Fluid RBC 350 10^3/uL 08/29/21 11:00 Bronch Cells Counted 200 08/29/21 11:00 Bronchial Neutrophils 68.00 % (0.9-2.3) H 08/29/21 11:00 Bronchial Lymphocytes 11.00 % (10.71-12.91) 08/29/21 11:00 Bronchial Eosinophils 3.00 % (0.13-0.25) H 08/29/21 11:00 Bronchial Macrophages 18.00 % (83.6-86.8) L 08/29/21 11:00 Bronchial Diff Comment Yes 08/29/21 11:00 Vancomycin Trough 16.9 ug/mL (10-15) H 09/03/21 22:28 Heparin-induced Ab Weak positive (NEGATIVE) A 09/07/21 14:33 Pneumocystis Source 08/29/21 11:00 Pneumocystis DNA (PCR) No dna detected copies/mL 08/29/21 11:00 Pneumocyst jiroveci PCR Not detected 08/29/21 11:00 Beta-(1,3)-D-Glucan <31 pg/mL 08/29/21 19:50 B-(1,3)-D-Glucan Intrp Negative 08/29/21 19:50 Blood Type A Positive 09/07/21 07:55 Rho(D) Type Positive 09/07/21 07:55 Antibody Screen Negative 09/07/21 07:55 PEYTON, Poly Interpret Negative 09/07/21 19:44 Crossmatch See Detail 09/07/21 07:55 Micro: Microbiology 09/12/21 16:30 Catheter Tip Culture - Preliminary Central Line A&P Assessment and plan (1) Acute respiratory failure with hypoxia: Status: Acute (2) COVID-19: Status: Acute (3) HTN (hypertension): Status: Acute (4) Hypothyroidism: Status: Acute (5) Acute respiratory distress syndrome (ARDS) due to 2019 novel coronavirus: Status: Acute (6) Anxiety: Status: Acute (7) Pulmonary embolism associated with COVID-19: Status: Acute (8) Goals of care, counseling/discussion: Status: Acute Plan #Acute hypoxic respiratory failure secondary to ARDS due to COVID-19 pneumon ia/PE #Pulmonary embolism on elliquis #Hypertension #Hypothyroidism #Persistent low-grade fevers # Heparin antibodies - weakly positive -Intubated 08/29/2021-extubated 09/07/2021 -completed 4 proning sessions-extubated to 8 L nasal cannula; after 3 days her respiratory status gradually worsened possibly due to spiration of secretions and she was reintubated 09/10/2021 and post intubation bronchoscopy showed thick mucoid secretions in the left mainstem bronchus, left lower lobe and left upper lobe-suctioned right away - Completed 2 additional proning sessions - fio2 down to 45% - Sedated with fentanyl 150, versed 6, propofol 40, precedex - following command s; plan is to taper versed, followed by fentanyl taper -labs and imaging reviewed - CT chest 09/12/21 showed no change in bilateral extensive GGOS compared to 10 days ago - however on ventilator her P plateau was 17, fiow 45% and compliance was around 30-35 - -Completed 10 days vancomycin and imipenem 09/07/2021; BAL Cultures negative; Cultures so far negative except sputum showed Patrica Albicans - she had fever spikes over last 36 hrs and new cultures are pending, Covered with Zosyn for her recent aspiration; her right IJ was removed and new right subclavian line placed 09/12/21 - meanwhile, we will continue to taper down sedation and continue evaluation for extubation. -H&H stable at 8.- haptoglobin Low 10; -currently on methylprednisone 20 twice daily-we will taper it to 20 daily -Completed 5-day course of remdesivir, dexamethasone, 1 dose of Tocilizumab, and received baricitinib few doses Discontinued in view of discontinued in view of possible secondary infection- PCP PCR was negative 08/28/21 and we resent with BAL again 09/10/21 - CTA 08/18/2021 was negative for pulmonary embolism but secondary to markedly elevated dimer on full dose anticoagulation with Lovenox later switched to Eliquis 5 mg twice daily--due to worsening FiO2 requirements CTA was repeated 08/28/2021 which showed multiple small pulmonary emboli in first order to segmental branches of right pulmonary artery and worsening bilateral pneumonia;Heparin antibodies were weakly positive and currently on Eliquis -Coagulation parameters - show evidence of mild DIC but fibrinogen is within normal limits. no evidence of DIC, no evidence of TTP, no evidence of autoimmune hemolytic anemia. - Echocardiogram demonstrated preserved EF, mild pulmonary hypertension -Patient is -8 L since admission-on Lasix 40 mg daily-monitor input output/electrolytes/renal functions and try to keep net negative; Gave addit ional dose today -Continue senna docusate for bowel regimen -DVT prophylaxis : Elliquis -GI prophylaxis: PPI -Tube feeding: Pulmicort 40 cc/hour -Full code -Family updated Had extensive discussion with Daughter Ms Hoyt, pts Mr. Vanessa Uriostegui at bedside about goals of care - explained that once we taper off sedation and if she does well on breathing trial - we will extubate her in next 24-48 hrs and she need aggressive physical therapy and pulmonary rehabilitation. Given her extensive COVID intertitial disease - she may need prolonged rehab for recovery while chances of failing extubation are there given her aspiration risk. Prior to intubation we even discussed about possible trach and PEG - but family including NOK does not want trach/PEG/Reintubation/Resuscitation. For now the decision is to continue present care and extubate when it is appropriate - plan is to decide on rehab placement Vs comfort measures depending on her recovery. Patient conveyed to hospitalist, RN, RT taking care of the patient Attestations Medical Necessity Statement*: Acute hypoxic respiratory failure secondary to ARDS due to COVID-19 pneumonia/pulmonary embolism/aspiration pneumonia requiring high flow oxygen and close monitoring in ICU Time Spent in Patient Care: Greater than 35 minutes (>than 50% of time spent in counselling and/or direct pt care on unit) . Critical Care Time: The high probability of a clinically significant, sudden or life threatening deterioration of the patient's [respiratory, infectious system(s) required my full and direct attention, intervention and personal management. The critical care time is as shown. This time is in addition to time spent performing any reported procedures but includes the following: [x] Data and vital sign review and interpretation [x] Patient assessment, examination and intervention [x] Documentation [x] Medication orders and management Critical Care Time (min): 65 Coding Level of Care Code Established Pt Acute Child Welfare Caseworker for Chg Fwd Patient Type Established History Comprehensive Exam Comprehensive Medical Decision Making High Complexity Diagnoses Acute respiratory failure with hypoxia J96.01 COVID-19 U07.1 HTN (hypertension) I10 Hypothyroidism E03.9 Acute respiratory distress syndrome (ARDS) due to 2019 novel coronavirus U07.1; J80 Anxiety F41.9 Pulmonary embolism associated with COVID-19 U07.1; I26.99 Goals of care, counseling/discussion Z71.89 Time Spent (min) 65
[2021-09-13] MEDS: HYDROmorphone 1 mg/mL INJ 1 mL 0.4 MG IVP (22:15)
[2021-09-14] VITALS (42 sets, daily range): BP systolic 109–168; BP diastolic 64–122; PULSE 56–110; RESP 18–33; TEMP 36.6–37.2; O2SAT 87–105
[2021-09-14] MEDS: propofol 1,000 MG/100 ML INJ 26.94 MG IV ×2 (00:08→04:16)
[2021-09-14] MEDS: apixaban 5 mg Tablet 10 MG PO (03:30)
[2021-09-14] MEDS: piperacillin-tazobactam 3.375 GM in sodium chloride 0.9% (plus) 50 ML IV ×3 (03:30→20:03)
[2021-09-14] MEDS: levalbuterol 0.63 mg/3 mL Neb INHALATION ×6 (03:38→23:42)
[2021-09-14] MEDS: ipratropium 0.5 mg/2.5 mL Neb INHALATION ×6 (03:38→23:42)
--- NOTE | 2021-09-14 04:00 | XR_ITS ---
WS: [id number] Exam: XR chest 1V portable [id number] Date/Time of Exam: 09/14/2021 4:25 AM Reason For Exam: pneumonia Comparison 09/12/2021. Diffuse interstitial infiltrates noted throughout both lungs. Slight improvement on the right but no other significant change. Heart size is within normal limits for technique. An endotracheal tube ends about 4 cm above the jasper in good position. An enteric tube is noted in the body of the stomach. A right subclavian central line appears to end in the lower one third of the SVC in good position. Nor mal mediastinal contour. Additional monitoring leads superimpose the chest. XR/XR chest 1V portable [id number] IMPRESSION: 1. Diffuse interstitial infiltrates in both lungs. Slight improvement on the ri ght since prior study. 2. ET tube, enteric tube and right-sided central line all remaining in satisfac tory position.
[2021-09-14 04:27] LABS: Basophils % 0.1 %; Eosinophils # 0.2 10^3/uL (0.0-0.8); Eosinophils % 1.8 %; Hematocrit 24.1 % (37.0-47.0); Hemoglobin 7.5 g/dL (11.5-15.3); Lymphocytes # 1.5 10^3/uL (0.8-4.8); Lymphocytes % 10.9 %; Mean Corpuscular HGB Conc 31.1 g/dL (30.0-36.0); Mean Corpuscular Hemoglobin 31.4 pg (28.0-34.0); Mean Corpuscular Volume 100.8 fl (81-99); Mean Platelet Volume 9.7 fL (7.4-10.4); Monocytes # 0.6 10^3/uL (0.2-0.9); Monocytes % 4.4 %; Neutrophils # 10.45 10^3/uL (1.8-7.7); Neutrophils % 78.7 %; Nucleated Red Blood Cells # 0.3 /100WBC; Nucleated Red Blood Cells % 2.6 %; Platelet Count 341 10^3/cmm (130-400); Red Blood Count 2.39 10^6/uL (4.1-5.3); Red Cell Distribution Width 19.5 % (12.1-15.1); White Blood Count 13.3 10^3/uL (4.0-10.0)
[2021-09-14 04:47] LABS: Chloride 107 mmol/L (98-107); Sodium 145 mmol/L (136-145)
[2021-09-14 04:51] LABS: Alanine Aminotransferase 42 U/L (0-33); Albumin Level 2.8 g/dL (3.5-5.2); Alkaline Phosphatase 60 IU/L (35-105); Anion Gap 11.8 (5-19); Aspartate Amino Transferase 22 U/L (0-32); Blood Urea Nitrogen 19 mg/dL (6-20); Carbon Dioxide 29 mmol/L (22-29); Globulin 2.7 g/dL (1.3-4.6); Glomerular Filtration Rate 227.7 mL/min (90-130); Glucose 178 mg/dL (65-115); Osmolality Calculated 307 mOsm/kg (285-295); Total Bilirubin 0.6 mg/dL (0.15-1.2); Total Protein 5.5 g/dL (6.6-8.7)
[2021-09-14 04:52] LABS: Potassium 2.8 mmol/L (3.5-5.1)
[2021-09-14 05:41] LABS: ABG PCO2 49.1 mmHg (35-45); ABG PH Result 7.43 (7.35-7.45); Arterial Blood Gas Hematocrit 24.9 % (37-47); Blood Gas Allen Test Pos; Blood Gas Operator Identificat JB; Blood Gas Sample Site Radial, right; Blood Gas Sample Type Arterial; HCO3 ABG 32.2 mmol/L (22-26); Oxygen Device VENT; PO2 ABG 77.1 mmHg (80.0-100.0)
[2021-09-14 07:54] LABS: Magnesium 2.2 mg/dL (1.7-2.3)
[2021-09-14] MEDS: budesonide 0.5 mg/2 mL Neb INHALATION ×2 (07:54→20:15)
[2021-09-14] MEDS: acetylcysteine 200 mg/mL SDV 4 mL INHALATION ×2 (07:55→20:15)
[2021-09-14] MEDS: quetiapine 25 mg Tablet PO (08:06)
[2021-09-14] MEDS: zinc gluconate 50 mg Tablet PO (08:06)
[2021-09-14] MEDS: levothyroxine 25 mcg Tablet PO (08:06)
[2021-09-14] MEDS: ferrous gluconate 324 mg Tablet PO (08:06)
[2021-09-14] MEDS: topiramate 100 mg Tablet PO (08:06)
[2021-09-14] MEDS: potassium chloride ER 20 mEq Tablet 40 MEQ PO (08:06)
[2021-09-14] MEDS: montelukast sodium 10 mg Tablet PO (08:06)
[2021-09-14] MEDS: aspirin 81 mg EC Tablet PO (08:06)
[2021-09-14] MEDS: ascorbic acid 500 mg Tablet PO (08:06)
[2021-09-14] MEDS: pantoprazole 40 mg SDV IVP (08:07)
[2021-09-14] MEDS: bisacodyl 5 mg Tablet 10 MG PO (08:07)
[2021-09-14] MEDS: FUROsemide 10 mg/mL SDV 4mL 40 MG IVP (08:07)
[2021-09-14] MEDS: lidocaine 1% 5 ML in potassium chloride premix 100 ML 25 ML IV ×2 (08:07→12:14)
[2021-09-14] MEDS: propofol 1,000 MG/100 ML INJ 20.96 MG IV (08:15)
--- NOTE | 2021-09-14 10:06 | PC.SOCIAL ---
IMM Not Updated Pg. 2 of IMM not updated. Patient remains intubated at this time, not anticipated to discharge within the next 48hours.
--- NOTE | 2021-09-14 10:25 | PM.PN ---
Subjective Subjective: Patient is wide awake and alert responding to commands, still intubated, weaning trial, extubation later today Hemoglobin 7.5, holding off of blood transfusion Family at the bedside Scoop Filler also evaluated patient and spoke with the family this morning as well commercial finance manager has been updated Patient is afebrile 70 ml positive fluid balance Potassium repleted I have requested mag and phosphorus level Vitals/I&O/Wt Last Vital Signs Temp 99.0 F 09/14/21 08:00 Pulse 99 09/14/21 10:00 Resp 25 H 09/14/21 09:00 BP 133/77 09/14/21 10:00 Pulse Ox 92 09/14/21 10:00 09/13/21 09/14/21 09/14/21 22:59 06:59 14:59 Intake Total 1016.935 / 1645.821 261.100 / 1906.921 450.450 / 450.450 Output Total 1380 / 1380 415 / 1795 Balance -363.065 / 265.821 -153.900 / 111.921 450.450 / 450.450 Weight last 48 hrs Weight 90.446 kg Weight 91.626 kg Physical Exam Narrative: Patient is intubated however she is wide awake and alert Following commands Family at the bedside Noticed blood around her mouth Bilateral breath sounds no rhonchi or crackles Abdomen soft No signs of edema Multiple petechiae and purpura seems to be regressing No vascular compromise of lower extremity No signs of ischemic ulcers Gomez catheter draining yellow clear urine Urinary Catheter Management: Gomez: Cath Placed During This Visit: yes Reason for Continuing Indwelling Catheter: Accurate Measurement of Urinary Output in Critically Ill Patients Urinary Catheter Date of Insertion: 08/29/21 Urinary Catheter Time of Insertion: 01:18 Data : 09/14/21 03:40 09/14/21 03:40 Micro: Microbiology 09/12/21 16:30 Catheter Tip Culture - Final Central Line A&P Assessment and plan Plan COVID-19 related respiratory failure requiring mechanical ventilation Patient got intubated twice Weaning trial and then extubation today After extubation will discuss with the patient and her family regarding disposition plan, she will need extensive PT/OT program however family is concerned that she will not be able to cooperate, evaluation after extubation She is DNR/DNI Tube feeds discontinued COVID-19 related DIC, hemoglobin 7.5 hold off on blood transfusion CT chest pelvis unremarkable however ARDS related changes evident on CT chest which have not significantly improved Change Eliquis to 5 mg twice daily 2/5 cta + PE Attestations Medical Necessity Statement*: Extubation today Time Spent in Patient Care: 20min Coding Level of Care Code Acute Pediatric Orthodontist for Tony Vences
[2021-09-14 10:44] LABS: ABG PCO2 44.7 mmHg (35-45); ABG PH Result 7.47 (7.35-7.45); Alveolar-Arterial Oxygen Gradi 26.1 mmHg (5-10); Arterial Blood Gas Hematocrit 28.3 % (37-47); Base Excess ABG 7.9 mmol/L (-2.0-2.0); Blood Gas Allen Test Pos; Blood Gas Operator Identificat GD; Blood Gas Sample Site Radial, left; Blood Gas Sample Type Arterial; Carboxyhemoglobin 2.9 %THgb (0.4-20.1); HCO3 ABG 32.4 mmol/L (22-26); HGB O2 Sat 90.2 % (95-100); Ionized Calcium Level - ABG 1.2 mmol/L (1.1-1.4); Methemoglobin 0.9 % (0.4-1.5); Oxygen Device VENT; Oxygen Saturation ABG 93.7; PO2 ABG 63.3 mmHg (80.0-100.0); Potassium Level - ABG 3.5 mmol/L (3.5-5.0); Total Hemoglobin 9.2 g/dL (12-16)
--- NOTE | 2021-09-14 11:13 | PC.OT ---
OT TREATMENT HELD THIS A.M. DUE TO EXTUBATION. WILL ATTEMPT IN P.M.
[2021-09-14] MEDS: dexmedeTOMIDine 0.9 % NaCL 400 MCG/100 ML PREMIX 13.45 MCG IV ×2 (11:25→18:12)
[2021-09-14] MEDS: LORazepam 2 mg/mL INJ 1 mL 1 MG IVP ×3 (11:30→21:48)
--- NOTE | 2021-09-14 11:30 | PC.NURSE ---
Extubation was done at 1110 and patient was placed on HHF at 35L and 50%. Ativan was given shortly after for anxiety.
[2021-09-14] MEDS: HYDROmorphone 1 mg/mL INJ 1 mL 0.4 MG IVP (16:34)
--- NOTE | 2021-09-14 17:42 | P.PNCC_ITS ---
Critical Care Event Note Patient extubated around 11 AM, heated high flow 35 L, 50%, currently doing well on pressors 0.7, family agreeable for placement at [facility] however case finisher visited with them they were not sure, will reevaluate later Critical Care Time Code activated: No Critical Care Time (min): 10 Coding Level of Care Code Acute Eye Dropper Assembler for Tony Vences
--- NOTE | 2021-09-14 19:00 | PC.NURSE ---
Precedex Upon assessment of patient, precedex running at 0.6 mcg/kg/hr while MAR displays 0.5 mcg/kg/hr. MAR updated to show administration.
[2021-09-14] MEDS: sodium chloride 3.5% neb 4 mL Neb INHALATION (20:17)
[2021-09-14 22:03] LABS: UFH High Dose, 100 IU/ML 1 % release; UFH Low Dose, 0.1 IU/ML 6 % release; UFH Low Dose, 0.5 IU/ML 4 % release; UFH SRA Result NEGATIVE (NEGATIVE)
--- NOTE | 2021-09-14 22:34 | PM.PN ---
Subjective Subjective: -Patient seen at bedside and evaluated multiple times today tolerated breathing trial, following commands, -Chest x-ray showed improvement in right-sided infiltrates -Successfully extubated to high flow nasal cannula 35 L 50% and saturating 93% -Labs and imaging reviewed supplemented electrolytes -Plan is to continue bedside physical therapy, incentive spirometry and pulmonary toileting-we will monitor for next 24 to 48 hours and if patient is doing well-we will make arrangements to discharge to rehab-extensive discussion with patient's and both daughters at bedside-they are agreed with the plan Medications: Reviewed: Yes Vitals/I&O/Wt Last Vital Signs Temp 99.0 F 09/14/21 08:00 Pulse 83 09/14/21 20:07 Resp 22 H 09/14/21 20:07 BP 168/104 09/14/21 18:00 Pulse Ox 95 09/14/21 20:07 09/14/21 09/14/21 09/14/21 06:59 14:59 22:59 Intake Total 261.100 / 1906.921 591.120 / 591.120 141.236 / 732.356 Output Total 415 / 1795 1850 / 1850 Balance -153.900 / 111.921 -1258.880 / -1258.880 141.236 / -1117.644 Weight last 48 hrs Weight 199 lb 6.4 oz Weight 202 lb Physical Exam Narrative: PHYSICAL EXAM: General: alert, NAD HEENT: conj clear, EOMI, PERRL, mmm, Neck: supple, no meningismus Heme: no cervical LAP Pulmonary: Crepitations at bilateral lower. CTAB, no wheezing, rhonchi, crackles Cardiovascular: rrr, nl s1s2, no mrg Abdomen: soft, nt, nd, no r/g, bs+ Extremities: pulses +, 1+ pitting pedal edema, no c/c : no CVA tenderness Skin: intact, no rash MSK: no back or neck pain Neurologic: grossly intact LDA: # Right subclavian 09/12/21 Urinary Catheter Management: Gomez: Cath Placed During This Visit: yes Reason for Continuing Indwelling Catheter: Accurate Measurement of Urinary Output in Critically Ill Patients Urinary Catheter Date of Insertion: 08/29/21 Urinary Catheter Time of Insertion: 01:18 Data : 09/14/21 03:40 09/14/21 03:40 Other Labs: Radiology Impressions Chest CTA 08/28/21 08:21 IMPRESSION: 1. Multiple small pulmonary emboli in 1st order through segmental branches of the right pulmonary artery. 2. Bilateral pneumonia, appears worsened when compared to the prior study. COMMENTS: Consistent with the [employer]'s Incidental Findings Committee white paper (J Am Margie Radiol 2018): Any incidental renal lesion less than 1 cm or classified as too small to characterize, or any incidental cystic renal lesion characterized as simple-appearing, is likely benign. No follow-up imaging is recommended for these lesions per consensus recommendations based on imaging criteria. Duplex Scan Lower Extremity Artery 09/08/21 10:21 IMPRESSION: No stenosis or occlusion. Chest/Abdomen/Pelvis CT 09/12/21 17:05 IMPRESSION: 1. Irregular patchy bilateral ground-glass opacities suggest a bilateral interstitial pneumonia. 2. Endotracheal tube tip 3.9 cm from the jasper. IMPRESSION: 1. There are no acute abdominal findings. 2. Stable 1.8 cm cyst in the anterior aspect of the right kidney. No further workup needed. 3. Diverticulosis of the sigmoid colon Chest X-Ray 09/14/21 04:00 IMPRESSION: 1. Diffuse interstitial infiltrates in both lungs. Slight improvement on the right since prior study. 2. ET tube, enteric tube and right-sided central line all remaining in satisfactory position. Laboratory Results WBC 13.3 10^3/uL (4.0-10.0) H 09/14/21 03:40 Corrected WBC 54.7 10^3/cmm (4.8-10.8) H 09/03/21 03:40 RBC 2.39 10^6/uL (4.1-5.3) L 09/14/21 03:40 Hgb 7.5 g/dL (11.5-15.3) L 09/14/21 03:40 Hct 24.1 % (37.0-47.0) L 09/14/21 03:40 MCV 100.8 fl (81-99) H 09/14/21 03:40 MCH 31.4 pg (28.0-34.0) 09/14/21 03:40 MCHC 31.1 g/dL (30.0-36.0) D 09/14/21 03:40 RDW 19.5 % (12.1-15.1) H 09/14/21 03:40 Plt Count 341 10^3/cmm (130-400) 09/14/21 03:40 MPV 9.7 fL (7.4-10.4) 09/14/21 03:40 Neut % (Auto) 78.7 % 09/14/21 03:40 Lymph % (Auto) 10.9 % 09/14/21 03:40 Alexander % (Auto) 4.4 % 09/14/21 03:40 Eos % (Auto) 1.8 % 09/14/21 03:40 Baso % (Auto) 0.1 % 09/14/21 03:40 Reticulocyte % (Auto) 7.6 % (0.5-2.0) H 09/08/21 04:13 Neut # (Auto) 10.45 10^3/uL (1.8-7.7) H 09/14/21 03:40 Lymph # (Auto) 1.5 10^3/uL (0.8-4.8) 09/14/21 03:40 Alexander # (Auto) 0.6 10^3/uL (0.2-0.9) 09/14/21 03:40 Eos # (Auto) 0.2 10^3/uL (0.0-0.8) 09/14/21 03:40 Baso # (Auto) 0.0 10^3/uL (0.0-0.1) 09/14/21 03:40 Nucleated RBC % (auto) 2.6 % 09/14/21 03:40 Total Counted 100 (0-100) 09/06/21 15:45 Atypical Lymphs % 0.0 % (0-5) 09/06/21 15:45 Absolute Neutrophils 13.7 10^3/cmm (1.4-6.5) H 09/06/21 15:45 Segmented Neutrophils 67 % 09/06/21 15:45 Abs Segm Neuts (Man) 11.7 10/cmm (1.6-7.1) H 09/06/21 15:45 Band Neutrophils 11.0 % 09/06/21 15:45 Abs Band Neuts (Man) 1.9 10^3/cmm (0.0-1.2) H 09/06/21 15:45 Absolute Lymphocytes 0.9 10^3/cmm (1.2-3.4) L 09/06/21 15:45 Lymphocytes (Manual) 5 % 09/06/21 15:45 Monocytes (Manual) 5.0 % 09/06/21 15:45 Absolute Monocytes 0.9 10^3/cmm (0.1-0.6) H 09/06/21 15:45 Eosinophils (Manual) 2 % 09/06/21 15:45 Absolute Eosinophils 0.3 10^3/cmm (0.0-0.7) 09/06/21 15:45 Basophils (Manual) 0.0 % 09/06/21 15:45 Absolute Basophils 0.0 10^3/cmm (0.0-0.2) 09/06/21 15:45 Metamyelocytes 8.0 % 09/06/21 15:45 Myelocytes 2.0 % 09/06/21 15:45 Nucleated RBCs 3.0 /100WBC (0-1) H 09/05/21 17:11 Nucleated RBCs # 0.3 /100WBC 09/14/21 03:40 Differential Comment Cancelled 08/29/21 11:00 Smudge Cells Trace 09/06/21 15:45 Platelet Estimate Normal (Normal) 09/06/21 15:45 Giant Platelets 1+ H 09/05/21 17:11 Polychromasia 1+ H 09/06/21 15:45 Hypochromasia 1+ H 09/06/21 15:45 Poikilocytosis Trace 09/06/21 15:45 Anisocytosis 2+ H 09/06/21 15:45 Macrocytosis Trace 09/06/21 15:45 Retic Production Index 4.81 09/08/21 04:13 Haptoglobin 10.0 mg/L (30-200) L 09/08/21 04:13 Heparin Require Pat 0.362 09/07/21 14:33 PT 18.80 SECONDS (12.1-14.9) H 09/13/21 09:25 INR 1.53 (0.8-1.2) H 09/13/21 09:25 APTT 30.1 SECONDS (23.9-36.7) 09/13/21 09:25 Fibrinogen 530 mg/dL (174-498) H 09/13/21 09:25 Fibrin Degrad Products Pos, 10-40 ug/mL (NEG) H 09/13/21 09:25 D-Dimer 1.24 ug/mIFEU (0-0.59) H 09/13/21 09:25 Specimen Type Arterial 09/14/21 10:28 Sample Site Radial, left 09/14/21 10:28 ABG pH 7.47 (7.35-7.45) H 09/14/21 10:28 ABG pCO2 44.7 mmHg (35-45) 09/14/21 10:28 ABG pO2 63.3 mmHg (80.0-100.0) L 09/14/21 10:28 ABG HCO3 32.4 mmol/L (22-26) H 09/14/21 10:28 ABG O2 Saturation 93.7 09/14/21 10:28 ABG Base Excess 7.9 mmol/L (-2.0-2.0) H 09/14/21 10:28 Suraj Test Pos 09/14/21 10:28 A-a O2 Gradient 26.1 mmHg (5-10) H 09/14/21 10:28 Hematocrit 28.3 % (37-47) L 09/14/21 10:28 Hgb O2 Saturation 90.2 % (95-100) L 09/14/21 10:28 Carboxyhemoglobin 2.9 %THgb (0.4-20.1) 09/14/21 10:28 Methemoglobin 0.9 % (0.4-1.5) 09/14/21 10:28 Total Hemoglobin 9.2 g/dL (12-16) L 09/14/21 10:28 Sodium 147.0 mmol/L (131-143) H 09/14/21 10:28 Potassium 3.5 mmol/L (3.5-5.0) 09/14/21 10:28 Glucose 146.0 mg/dL (70-115) H 09/14/21 10:28 Ionized Calcium 1.2 mmol/L (1.1-1.4) 09/14/21 10:28 O2 Delivery Device Vent 09/14/21 10:28 O2 Liters/Min 45.0 % 09/09/21 12:43 FiO2 45.0 % 09/14/21 10:28 Tidal Volume 0.40 09/14/21 05:10 PEEP 5.0 cmH20 09/14/21 05:10 Wool Fleece Sorter ID Gd 09/14/21 10:28 Sodium 145 mmol/L (136-145) 09/14/21 03:40 Potassium 2.8 mmol/L (3.5-5.1) L* 09/14/21 03:40 Chloride 107 mmol/L (98-107) 09/14/21 03:40 Carbon Dioxide 29 mmol/L (22-29) 09/14/21 03:40 Anion Gap 11.8 (5-19) 09/14/21 03:40 BUN 19 mg/dL (6-20) 09/14/21 03:40 Creatinine 0.3 mg/dL (0.5-0.9) L 09/14/21 03:40 GFR Calculation 227.7 mL/min (90-130) H 09/14/21 03:40 Glucose 178 mg/dL (65-115) H 09/14/21 03:40 POC Glucose 182 mg/dL (70-110) H 09/13/21 00:03 Calculated Osmolality 307 mOsm/kg (285-295) H 09/14/21 03:40 Lactic Acid 1.3 mmol/L (0.5-2.2) 08/18/21 06:49 Calcium 9.0 mg/dL (8.5-10.5) 09/14/21 03:40 Phosphorus 3.0 mg/dL (2.5-4.5) 09/14/21 03:40 Magnesium 2.2 mg/dL (1.7-2.3) 09/14/21 03:40 Iron 67 ug/dL (37-145) 09/09/21 03:57 TIBC 170 mcg/dl 09/09/21 03:57 % Saturation 39.4 % (20-50) 09/09/21 03:57 Unsat Iron Binding 103 ug/dL (112-347) L 09/09/21 03:57 Total Bilirubin 0.6 mg/dL (0.15-1.2) 09/14/21 03:40 AST 22 U/L (0-32) 09/14/21 03:40 ALT 42 U/L (0-33) H 09/14/21 03:40 Alkaline Phosphatase 60 IU/L (35-105) 09/14/21 03:40 Lactate Dehydrogenase 654 U/L (135-214) H 09/08/21 04:13 Creatine Kinase 256 U/L (26-192) H 08/30/21 04:23 Troponin T Gen 5 ng/L 31 ng/L (0-10) H 08/27/21 07:25 C-Reactive Protein 25.5 mg/L (0.0-4.9) H 09/05/21 03:39 NT-Pro-B Natriuret Pep 226 pg/mL (0-125) H 08/18/21 05:41 NT-Pro-B Natriuret Pep 242 pg/mL (0-125) H 08/18/21 05:41 Total Protein 5.5 g/dL (6.6-8.7) L 09/14/21 03:40 Albumin 2.8 g/dL (3.5-5.2) L 09/14/21 03:40 Globulin 2.7 g/dL (1.3-4.6) 09/14/21 03:40 Triglycerides 174 mg/dL (0-150) H 08/30/21 04:23 LMW Hep Low 0.1 IU/mL 84 % Release 09/07/21 14:33 LMW Hep Low 1.0 IU/mL 86 % Release 09/07/21 14:33 LMW Hep High 50 IU/ML 1 % Release 09/07/21 14:33 MERRITT LMWH Result Positive (Negative) A 09/07/21 14:33 Procalcitonin 0.38 ng/mL (0-0.5) 09/03/21 03:40 TSH 1.07 uIU/mL (0.27-4.20) 08/18/21 05:41 Random Cortisol 10.46 ug/dL (2.47-19.5) 09/02/21 05:00 Urine Color Yellow (Yellow) 09/07/21 08:00 Urine Appearance Clear (CLEAR) 09/07/21 08:00 Urine pH 5 (5-7) 09/07/21 08:00 Ur Specific [place] 1.020 (1.005-1.030) 09/07/21 08:00 Urine Protein 1+ (Negative) H 09/07/21 08:00 Urine Glucose (UA) Norm (Normal) 09/07/21 08:00 Urine Ketones 1+ (Negative) H 09/07/21 08:00 Urine Blood Neg (Negative) 09/07/21 08:00 Urine Nitrate Negative (Negative) 09/07/21 08:00 Urine Bilirubin Neg (Negative) 09/07/21 08:00 Urine Urobilinogen 1 mg/dL (Negative) H 09/07/21 08:00 Ur Leukocyte Esterase Negative (Negative) 09/07/21 08:00 Urine RBC 0-4 /hpf (0-2) H 09/07/21 08:00 Urine WBC 0-4 /hpf (0-5) H 09/07/21 08:00 Ur Squamous Epith Cells Rare /hpf (0-5) 09/07/21 08:00 Amorphous Sediment Trace /hpf 09/07/21 08:00 Urine Bacteria 1+ /hpf (NONE) H 09/07/21 08:00 Urine Mucus Trace /hpf 09/07/21 08:00 Fluid Source 08/29/21 11:00 Fluid Color Cancelled 08/29/21 11:00 Fluid Appearance Cancelled 08/29/21 11:00 Fluid WBC Cancelled 08/29/21 11:00 Fluid RBC Cancelled 08/29/21 11:00 Fluid Tot Cell Count Cancelled 08/29/21 11:00 Fld Polynuclear WBCs # Cancelled 08/29/21 11:00 Fld Polynuclear WBCs % Cancelled 08/29/21 11:00 Fl Mononucl WBCs #(Auto) Cancelled 08/29/21 11:00 Fl Mononuclear % Auto Cancelled 08/29/21 11:00 Bronch Specimen Source L. lower lobe 08/29/21 11:00 Bronchial Fluid Color Colorless 08/29/21 11:00 Bronchial Fluid Appearance Hazy (CLEAR) 08/29/21 11:00 Bronchial Fluid WBC 400 /uL 08/29/21 11:00 Bronchial Fluid RBC 350 10^3/uL 08/29/21 11:00 Bronch Cells Counted 200 08/29/21 11:00 Bronchial Neutrophils 68.00 % (0.9-2.3) H 08/29/21 11:00 Bronchial Lymphocytes 11.00 % (10.71-12.91) 08/29/21 11:00 Bronchial Eosinophils 3.00 % (0.13-0.25) H 08/29/21 11:00 Bronchial Macrophages 18.00 % (83.6-86.8) L 08/29/21 11:00 Bronchial Diff Comment Yes 08/29/21 11:00 Vancomycin Trough 16.9 ug/mL (10-15) H 09/03/21 22:28 Heparin-induced Ab Weak positive (NEGATIVE) A 09/07/21 14:33 UF Heparin Low Dose 1 6 % release 09/07/21 14:33 UF Heparin Low Dose 2 4 % release 09/07/21 14:33 UF Heparin High Dose 1 % release 09/07/21 14:33 MERRITT Unfract Heparin Negative (NEGATIVE) 09/07/21 14:33 Pneumocystis Source 08/29/21 11:00 Pneumocystis DNA (PCR) No dna detected copies/mL 08/29/21 11:00 Pneumocyst jiroveci PCR Not detected 08/29/21 11:00 Beta-(1,3)-D-Glucan <31 pg/mL 08/29/21 19:50 B-(1,3)-D-Glucan Intrp Negative 08/29/21 19:50 Blood Type A Positive 09/07/21 07:55 Rho(D) Type Positive 09/07/21 07:55 Antibody Screen Negative 09/07/21 07:55 PEYTON, Poly Interpret Negative 09/07/21 19:44 Crossmatch See Detail 09/07/21 07:55 Micro: Microbiology 09/10/21 09:55 Fungal Smear - Preliminary Sputum - Endotracheal Tube Aspirate 09/12/21 16:30 Catheter Tip Culture - Final Central Line A&P Assessment and plan (1) Acute respiratory failure with hypoxia: Status: Acute (2) COVID-19: Status: Acute (3) HTN (hypertension): Status: Acute (4) Hypothyroidism: Status: Acute (5) Acute respiratory distress syndrome (ARDS) due to 2019 novel coronavirus: Status: Acute (6) Anxiety: Status: Acute (7) Pulmonary embolism associated with COVID-19: Status: Acute (8) Goals of care, counseling/discussion: Status: Acute Plan #Acute hypoxic respiratory failure secondary to ARDS due to COVID-19 pneumonia/PE #Pulmonary embolism on elliquis #Hypertension #Hypothyroidism #Persistent low-grade fevers # Heparin antibodies - weakly positive -Intubated 08/29/2021-extubated 09/07/2021 -completed 4 proning sessions-extubated to 8 L nasal cannula; after 3 days her respiratory status gradually worsened possibly due to spiration of secretions and she was reintubated 09/10/2021 and post intubation bronchoscopy showed thick mucoid secretions in the left mainstem bronchus, left lower lobe and left upper lobe-suctioned right away - Completed 2 additional proning sessions - fio2 down to 45% -Patient was wide-awake on propofol 30, fentanyl 100,-started on Precedex and wean gradually tapered sedation -She passed breathing trial, chest x-ray showed improvement in right-sided infiltrates, so far all cultures negative, requiring 45% FiO2 for last 48 hours-successfully extubated to high flow nasal cannula 35 L 50% -Continue bedside physical therapy/incentive spirometry/and patient needs aggressive rehabilitation -If patient does well in next 24 to 48 hours-plan is to transfer her to rehab for aggressive physical therapy -Patient has a weak cough-we will give Mucomyst/hypertonic saline nebulization and chest physiotherapy - Completed 10 days vancomycin and imipenem 09/07/2021; BAL Cultures negative; Cultures so far negative except sputum showed Patrica Albicans - she had fever spikes over last 36 hrs and new cultures are pending, Covered with Zosyn for her recent aspiration; her right IJ was removed and new right subclavian line placed 09/12/21 -H&H stable at 7.2./25-we will monitor H&H and transfuse if it is less than 7/21 -currently on methylprednisone 20 daily-we will taper it off in next 2 days -Completed 5-day course of remdesivir, dexamethasone, 1 dose of Tocilizumab, and received baricitinib few doses Discontinued in view of discontinued in view of possible secondary infection- PCP PCR was negative 08/28/21 and we resent with BAL again 09/10/21 - CTA 08/18/2021 was negative for pulmonary embolism but secondary to markedly elevated dimer on full dose anticoagulation with Lovenox later switched to Eliquis 5 mg twice daily--due to worsening FiO2 requirements CTA was repeated 08/28/2021 which showed multiple small pulmonary emboli in first order to segmental branches of right pulmonary artery and worsening bilateral pneumonia;Heparin antibodies were weakly positive and currently on Eliquis -Coagulation parameters - show evidence of mild DIC but fibrinogen is within normal limits. - Echocardiogram demonstrated preserved EF, mild pulmonary hypertension -Patient is -9 L since admission-on Lasix 40 mg daily-monitor input output/electrolytes/renal functions and try to keep net negative; -Potassium 2.8-s/p 2 doses of K rider 40 M EQ given, magnesium 2.2 -Continue senna docusate for bowel regimen -DVT prophylaxis : Elliquis -GI prophylaxis: PPI -N.p.o. for now, recommended speech evaluation for swallowing, can use ice chips for now -DNR/DNI -Family updated at bedside Had extensive discussion with Daughter Ms Hoyt, pts Mr. Vanessa Uriostegui at bedside about goals of care - need aggressive physical therapy and pulmonary rehabilitation. Given her extensive COVID interstitial disease - she may need prolonged rehab for recovery while chances of failing extubation are there given her aspiration risk. Prior to intubation we even discussed about possible trach and PEG - but family including NOK does not want trach/PEG/Reintubation/Resuscitation. For now the decision is to continue present care and if she does well in next 24 to 48 hrs she will sent to rehab placement. Patient conveyed to hospitalist, RN, RT taking care of the patient Attestations Medical Necessity Statement*: Acute hypoxic respiratory failure secondary to ARDS due to COVID-19 pneumonia/pulmonary embolism/aspiration pneumonia - extubated today - requiring high flow oxygen and close monitoring in ICU Time Spent in Patient Care: Greater than 35 minutes (>than 50% of time spent in counselling and/or direct pt care on unit). Critical Care Time: The high probability of a clinically significant, sudden or life threatening deterioration of the patient's [respiratory, infectious system(s) required my full and direct attention, intervention and personal management. The critical care time is as shown. This time is in addition to time spent performing any reported procedures but includes the following: [x] Data and vital sign review and interpretation [x] Patient assessment, examination and intervention [x] Documentation [x] Medication orders and management Critical Care Time (min): 70 Coding Level of Care Code New Pt Acute [employer] for [facility] Fwd Patient Type New History Comprehensive Exam Comprehensive Medical Decision Making High Complexity Diagnoses Acute respiratory failure with hypoxia J96.01 COVID-19 U07.1 HTN (hypertension) I10 Hypothyroidism E03.9 Acute respiratory distress syndrome (ARDS) due to 2019 novel coronavirus U07.1; J80 Anxiety F41.9 Pulmonary embolism associated with COVID-19 U07.1; I26.99 Goals of care, counseling/discussion Z71.89 Time Spent (min) 70
[2021-09-14] MEDS: potassium chloride premix 100 ML 25 MEQ IV (23:20)
--- NOTE | 2021-09-14 23:20 | PC.NURSE ---
Gladisquis Dr. Chavez called to clarify Eliquis order. Previous dose held with comment hold per order, yet no other record of hold found. Coagulation labs relayed to Dr. Chavez and verbal order received to hold this dose of Eliquis. Medication not administered.
--- NOTE | 2021-09-14 23:35 | PC.NURSE ---
Family Updates Daughter, Belinda Chapman, called and received upate on patient status at 1951. , Eloisa Uriostegui, called and received upate on patient at 2330. During both discussions, last vitals, oxygen requirements, diet, and speech eval results were communicated. Family verbalized understanding and stated no further questions.
[2021-09-15] VITALS (42 sets, daily range): BP systolic 110–166; BP diastolic 65–98; PULSE 70–110; RESP 16–24; TEMP 36.7; O2SAT 90–99; BMI 31.0
[2021-09-15] MEDS: ondansetron 2 mg/ML SDV 2 mL 4 MG IVP ×2 (01:52→08:18)
[2021-09-15] MEDS: dexmedeTOMIDine 0.9 % NaCL 400 MCG/100 ML PREMIX 16.14 MCG IV ×2 (02:18→08:20)
[2021-09-15] MEDS: piperacillin-tazobactam 3.375 GM in sodium chloride 0.9% (plus) 50 ML IV ×3 (03:14→19:39)
[2021-09-15] MEDS: ipratropium 0.5 mg/2.5 mL Neb INHALATION ×5 (03:38→20:04)
[2021-09-15] MEDS: levalbuterol 0.63 mg/3 mL Neb INHALATION ×5 (03:38→20:03)
[2021-09-15] MEDS: metoclopramide 5 mg/mL SDV 2 mL IVP ×2 (03:40→23:59)
[2021-09-15 03:57] LABS: Basophils % 0.1 %; Eosinophils # 0.1 10^3/uL (0.0-0.8); Eosinophils % 0.4 %; Hematocrit 26.7 % (37.0-47.0); Hemoglobin 8.2 g/dL (11.5-15.3); Lymphocytes # 0.8 10^3/uL (0.8-4.8); Lymphocytes % 5.4 %; Mean Corpuscular HGB Conc 30.7 g/dL (30.0-36.0); Mean Corpuscular Hemoglobin 31.5 pg (28.0-34.0); Mean Corpuscular Volume 102.7 fl (81-99); Mean Platelet Volume 9.5 fL (7.4-10.4); Monocytes # 0.8 10^3/uL (0.2-0.9); Monocytes % 5.9 %; Neutrophils # 11.82 10^3/uL (1.8-7.7); Neutrophils % 84.7 %; Nucleated Red Blood Cells # 0.1 /100WBC; Nucleated Red Blood Cells % 0.9 %; Platelet Count 369 10^3/cmm (130-400)
--- NOTE | 2021-09-15 04:00 | PC.NURSE ---
Nausea Patient first complained of nausea at 0132. Dr. Chavez notified and verbal order received for 4 mg ondansetron IVP Q 6 hours PRN. At around 0330, Patient still complaining of nausea while dry heaving. Dr. Chavez contacted again and telephone order received for 5 mg metoclopramide IVP Q 8 hours PRN. Medications administered per SEP.
[2021-09-15 04:19] LABS: Alanine Aminotransferase 42 U/L (0-33); Albumin Level 3.2 g/dL (3.5-5.2); Alkaline Phosphatase 83 IU/L (35-105); Anion Gap 12.8 (5-19); Aspartate Amino Transferase 36 U/L (0-32); Blood Urea Nitrogen 18 mg/dL (6-20); Calcium 9.5 mg/dL (8.5-10.5); Carbon Dioxide 27 mmol/L (22-29); Chloride 114 mmol/L (98-107); Globulin 2.9 g/dL (1.3-4.6); Glomerular Filtration Rate 227.7 mL/min (90-130); Glucose 146 mg/dL (65-115); Osmolality Calculated 315 mOsm/kg (285-295); Potassium 3.8 mmol/L (3.5-5.1); Sodium 150 mmol/L (136-145); Total Bilirubin 0.8 mg/dL (0.15-1.2); Total Protein 6.1 g/dL (6.6-8.7)
[2021-09-15 04:23] LABS: ABG PCO2 44.4 mmHg (35-45); ABG PH Result 7.42 (7.35-7.45); Arterial Blood Gas Hematocrit 27.8 % (37-47); Base Excess ABG 3.4 mmol/L (-2.0-2.0); Blood Gas Allen Test Pos; Blood Gas Sample Site Radial, right; Blood Gas Sample Type Arterial; HCO3 ABG 28.4 mmol/L (22-26); Oxygen Device HAG
--- NOTE | 2021-09-15 07:18 | PC.NURSE ---
Zofran Patient complains of nausea even after the zofran and reglan administrations. Dr. Chavez notified and telephone order received to change frequency of Zofran to Q 4 hours. Medication administered per SEP.
[2021-09-15] MEDS: simethicone 80 mg Chew PO (07:19)
[2021-09-15] MEDS: acetylcysteine 200 mg/mL SDV 4 mL INHALATION ×2 (07:49→20:04)
[2021-09-15] MEDS: budesonide 0.5 mg/2 mL Neb INHALATION ×2 (07:49→20:04)
[2021-09-15] MEDS: sodium chloride 3.5% neb 4 mL Neb INHALATION (07:51)
--- NOTE | 2021-09-15 07:55 | PC.RESP ---
RT Shift Note Frequent safety and respiratory rounds continue. Orders completed as indicated. Patient monitored pre and post treatments throughout shift. Patient [Did.] tolerate treatments appropriately. Condition [Improved.]. Patient and/or territory representative educated on respiratory treatment and medications. Patient and/or territory representative [verbalized understanding]. Will continue to monitor patient progress.
[2021-09-15] MEDS: bisacodyl 5 mg Tablet 10 MG PO (08:16)
[2021-09-15] MEDS: topiramate 100 mg Tablet PO (08:16)
[2021-09-15] MEDS: zinc gluconate 50 mg Tablet PO (08:16)
[2021-09-15] MEDS: ascorbic acid 500 mg Tablet PO (08:16)
[2021-09-15] MEDS: ferrous gluconate 324 mg Tablet PO ×2 (08:17→17:24)
[2021-09-15] MEDS: levothyroxine 25 mcg Tablet PO (08:17)
[2021-09-15] MEDS: montelukast sodium 10 mg Tablet PO (08:17)
[2021-09-15] MEDS: quetiapine 25 mg Tablet PO (08:17)
[2021-09-15] MEDS: aspirin 81 mg EC Tablet PO (08:17)
[2021-09-15] MEDS: pantoprazole 40 mg SDV IVP (08:18)
[2021-09-15] MEDS: dextrose 5% 1,000 ML 75 ML IV (08:19)
[2021-09-15] MEDS: FUROsemide 10 mg/mL SDV 4mL 40 MG IVP (08:19)
--- NOTE | 2021-09-15 10:18 | PM.PN ---
Subjective Subjective: This morning patient is stating that she would agree with what our her would decide regarding her placement, telehealth case manager updated me that LTAC might accept her today versus tomorrow Afebrile Leukocytosis 14,000 -2 L balance Hypernatremia sodium 150 Started D5 Patient has not been able to drink or eat much she is on pur?ed diet, pending PT/speech evaluation today Severe muscle weakness noted nonfocal neuro exam ABG reviewed currently on heated high flow 50% 35 L Albumin 3.2 Hemoglobin stable No BM, passing flatus Vitals/I&O/Wt Last Vital Signs Temp 98.1 F 09/15/21 04:00 Pulse 104 H 09/15/21 10:03 Resp 21 H 09/15/21 10:03 BP 125/71 09/15/21 09:01 Pulse Ox 96 09/15/21 10:03 09/14/21 09/15/21 09/15/21 22:59 06:59 14:59 Intake Total 151.996 / 743.116 359.24 / 1102.356 390.132 / 390.132 Output Total 1200 / 3050 Balance 151.996 / -1106.884 -840.76 / -1947.644 390.132 / 390.132 Weight last 48 hrs Weight 87.226 kg Weight 90.446 kg Physical Exam Narrative: Patient was awake and alert Nonfocal neuro exam Severe muscle weakness Isolated myopathy Awake and alert Able to understand all of my questions Hoarseness of voice She is breathing pink sputum No severe bleeding Abdomen is soft Petechia purpura of extremities improving Gomez catheter draining yellow-colored urine Urinary Catheter Management: Gomez: Cath Placed During This Visit: yes Reason for Continuing Indwelling Catheter: Accurate Measurement of Urinary Output in Critically Ill Patients Urinary Catheter Date of Insertion: 08/29/21 Urinary Catheter Time of Insertion: 01:18 Data : 09/15/21 03:20 09/15/21 03:20 Micro: Microbiology 09/10/21 09:55 Fungal Smear - Preliminary Sputum - Endotracheal Tube Aspirate 09/12/21 16:30 Catheter Tip Culture - Final Central Line A&P Assessment and plan (1) DIC (disseminated intravascular coagulation): Status: Acute (2) Acquired thrombocytopenia: Status: Acute (3) Pulmonary embolism associated with COVID-19: Status: Acute (4) Acute respiratory distress syndrome (ARDS) due to 2019 novel coronavirus: Status: Acute (5) Anxiety: Status: Acute (6) Acute respiratory failure with hypoxia: Status: Acute (7) Nonpalpable pulse: Status: Acute (8) Goals of care, counseling/discussion: Status: Acute Plan Patient extubated 09/14, no severe anxiety, breathing calmly on Precedex 0.6 asked ICU nurse to wean off Precedex and transfer her to [facility] COVID-19 related respiratory failure required intubation twice ICU related myopathy Extreme muscle weakness She will need extensive PT/OT/speech evaluation Currently on pur?ed diet Afebrile Leukocytosis stable No decompensation of anemia DIC related to COVID-19 Hypernatremia related dehydration, Started D5 today Patient is stating that because of her weakness she wanted to get out of bed today and requesting a Gomez catheter can be removed tomorrow as compared to day Stating that she would agree to what ever her decides, family is okay sending her to LTAC for rehab assistant project manager updated Eliquis 5 mg twice a day for positive PE on 08/28 DNR/DNI . Diet Advanced as per speech evaluation Attestations Medical Necessity Statement*: Patient can be transferred out out of ICU to CSU Time Spent in Patient Care: 20min Coding Level of Care Code Acute Pharmacist'S Aide for [employer] Fwd Diagnoses DIC (disseminated intravascular coagulation) D65 Acquired thrombocytopenia D69.6 Pulmonary embolism associated with COVID-19 U07.1; I26.99 Acute respiratory distress syndrome (ARDS) due to 2019 novel coronavirus U07.1; J80 Anxiety F41.9 Acute respiratory failure with hypoxia J96.01 Nonpalpable pulse Z78.9 Goals of care, counseling/discussion Z71.89
--- NOTE | 2021-09-15 10:34 | PC.CHAP ---
Pastoral Care Encounter/Spiritual Assessment Type of Contact [] Declined helper animal laboratory visit [] Patient/Family/Request visit [] Outpatient visit [] Follow-up visit [] Physician referral [] Code/Alert [x] Routine visit [] Staff referral [] Actively dying [] Patient sleeping [] Family support [] [] Out of room [] Palliative care [] [x] Receiving care in room [] Pre-surgical visit [] Trauma [] Long length of stay [x] ICU visit [x] Other: patient had vent removed... nurse feeding patient pancake... Relational/Emotional Strength [] Patient feels connected with others/family/visitors/staff [] Distress [] Loneliness/isolation [] Abandonment Spirituality of Patient [] Person of Heydi [] Attends Christian of their Heydi [] Believes in Prayer [] Reads Bible or Muslim materials [] There are Spiritual issues to be addressed Business Continuity Planner Interventions [x] Prayer [x] Active listening [x [] Spiritual counseling [] Bereavement support [] Provided bereavement packet [] Provided Bible/devotional materials [] Provided toy/stuffed animal, coloring book to patient or family member [] Provided Communion [] Anointing/[place] [] Salvation [x] Completed spiritual assessment [] Other: Impact on Illness or Injury [] Angry [] Fearful [] Anxious [] Often cries [] Exhaustion [] Unable to work [] Unable to attend quaker [] Unable to walk/stand [] Unable to read [] Unable to drive [] Unable to eat/drink [] Unable to sleep [] Unable to be with family [] Patient intubated [] Other: Summary Time spent with patient
--- NOTE | 2021-09-15 10:51 | PM.TDS ---
Transfer Summary Providers Date of Admission: 08/18/21 09:57 Date of Discharge/Transfer: 09/15/21 Attending Provider at Admission: Tristian Whitman MD Attending Provider at Transfer: Brendan White MD Primary Care Provider: Philippe Garg MD Transfer Plans: Anticipated date of transfer: 09/15/21. Diagnoses at Discharge Discharge Diagnosis (1) DIC (disseminated intravascular coagulation): Status: Acute (2) Acquired thrombocytopenia: Status: Acute (3) Pulmonary embolism associated with COVID-19: Status: Acute (4) Acute respiratory distress syndrome (ARDS) due to 2019 novel coronavirus: Status: Acute (5) Anxiety: Status: Acute (6) Acute respiratory failure with hypoxia: Status: Acute (7) Nonpalpable pulse: Status: Acute (8) Goals of care, counseling/discussion: Status: Acute Reason for Visit Reason for Visit SOB Hospital Course Hospital Course 61-year-old lady,, has had a difficult time with severe COVID-19, admitted 29 days ago, with ARDS, required intubation, mechanical ventilation, had undergone 4 sessions of proning initially, 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 Condition complicated also by finding of PE on second CTA, which did not appear to be present on for CTA, was treated with Lovenox, then heparin drip for a while, then Lovenox again. With suspicion of possible HIT was later switched to argatroban, and then Eliquis (when extubated), on which continues currently. 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 Received several transfusions, so far now hemoglobin appears to be steady around 7.9. Transient thrombocytopenia improved. Does have quite bad bruising. Transiently had left lower extremity very weak pulse/cool to the touch, unclear if possibly transient vasoconstriction due to pressors or other cause, but left lower extremity arterial duplex was negative. This appears to be improved, pulses still slightly weaker on the left, but foot is warm. Has had persistent leukocytosis, was on empiric antibiotics with Levaquin, Primaxin, vancomycin, Diflucan was added then as well due to yeast growing in sputum culture. All of the blood cultures from 10 growing coagulase-negative staph in 1/3 bottles, likely contaminant. No growth on repeat culture. Initially wean down well to 40% FiO2, extubated on 09/07 to heated high flow. Very weak. Subsequently condition gradually deteriorated, with worsening hypoxia, transiently placed on BiPAP which she did not tolerate well, sedation had to be restarted with Precedex, at one point going to max dose while on BiPAP, BiPAP was stopped, and back to heated high flow, and arrangements made for reintubation. Same time underwent bronchoscopy on 09/10. Deterioration suspected secondary to aspiration. Was seen by speech, and MBS was planned, but deteriorated before this could be done. Some mucus noted in left mainstem bronchus, aspirated, sent for culture. Prior to intubation discussed additionally with her and family were at bedside as well regarding tracheostomy and PEG tube which she will need to ensure successful recovery to which she was agreeable. These likely can be done at [facility] if they accept her, otherwise can be done here. LT[facility] has been following, and will reevaluate again on Monday from what I heard from CM. She has been spiking recurrent fevers, without good explanation, with multiple repeat cultures, blood, urine, sputum without significant growth. Again some yeast growing in sputum, Diflucan which was earlier stopped, now switched to caspofungin in case of some resistance. Was weaned off Primaxin and vancomycin in case of possible drug fever. Now with recurrence of fever with possible aspiration was restarted on Zosyn. line removed ?and requested tip to be sent for culture as this has stayed in since the initial intubation. Cultures have been negative so far. She did not spike fever since 09/12. Successfully extubated to heated high flow 50% 35 L on 09/14. Became hypernatremic on 09/15, discontinued diuretics. She is in -2 L balance today. Poor p.o. intake. Extensive PT/OT/speech therapy. Has been accepted by Dr Mascorro. Leukocytosis 14,000 today. Sputum from endotracheal aspirate showed Patrica albicans, Hemoglobin at the time of discharge 8.2 Physical Exam Narrative: Patient was awake and alert Nonfocal neuro exam Severe muscle weakness Isolated myopathy Awake and alert Able to understand all of my questions Hoarseness of voice She is breathing pink sputum No severe bleeding Abdomen is soft [place] purpura of extremities improving Gomez catheter draining yellow-colored urine Urinary Catheter Management: Gomez: Cath Placed During This Visit: yes Reason for Continuing Indwelling Catheter: Accurate Measurement of Urinary Output in Critically Ill Patients Urinary Catheter Date of Insertion: 08/29/21 Urinary Catheter Time of Insertion: 01:18 TS Data Studies Completed and Pending Pending at discharge Category Date Time Status ABG FULL [Arterial Blood Gas Full] Stat Lab 08/29/21 18:16 Results CMP [Comprehensive Metabolic Panel] AM LABS Lab 09/16/21 04:00 Ordered Complete Blood Count w/Auto AM LABS Lab 09/16/21 04:00 Ordered Fungal Culture not HR/SK/BL Routine Lab 08/29/21 11:00 Results Fungal Culture not HR/SK/BL Routine Lab 09/10/21 09:55 Results Pneumocystis PCP [Pneumocystis jiroveci Qual PCR] Lab 09/10/21 09:55 Received Routine Pneumocystis jirovecii, QT PCR Routine Lab 09/10/21 09:55 Received Sodium Timed Lab 09/15/21 15:00 Ordered Labs from last 24 hours 09/15/21 09/15/21 09/15/21 04:00 03:20 03:20 WBC 14.0 H RBC 2.60 L Hgb 8.2 L Hct 26.7 L MCV 102.7 H MCH 31.5 MCHC 30.7 RDW 21.0 H Plt Count 369 MPV 9.5 Neut % (Auto) 84.7 Lymph % (Auto) 5.4 [place] % (Auto) 5.9 Eos % (Auto) 0.4 Baso % (Auto) 0.1 Neut # (Auto) 11.82 H Lymph # (Auto) 0.8 [place] # (Auto) 0.8 Eos # (Auto) 0.1 Baso # (Auto) 0.0 Nucleated RBC % (auto) 0.9 Nucleated RBCs # 0.1 Specimen Type Arterial Sample Site Radial, right ABG pH 7.42 ABG pCO2 44.4 ABG pO2 60.0 L ABG HCO3 28.4 H ABG Base Excess 3.4 H Surja Test Pos Hematocrit 27.8 L O2 Delivery Device Hag O2 Liters/Min 35.0 FiO2 40.0 [employer] Hensa Sodium 150 H Potassium 3.8 Chloride 114 H Carbon Dioxide 27 Anion Gap 12.8 BUN 18 Creatinine 0.3 L GFR Calculation 227.7 H Glucose 146 H Calculated Osmolality 315 H Calcium 9.5 Total Bilirubin 0.8 AST 36 H ALT 42 H Alkaline Phosphatase 83 Total Protein 6.1 L Albumin 3.2 L Globulin 2.9 UF Heparin Low Dose 1 UF Heparin Low Dose 2 UF Heparin High Dose MERRITT Unfract Heparin 09/07/21 14:33 WBC RBC Hgb Hct MCV MCH MCHC RDW Plt Count MPV Neut % (Auto) Lymph % (Auto) [place] % (Auto) Eos % (Auto) Baso % (Auto) Neut # (Auto) Lymph # (Auto) [place] # (Auto) Eos # (Auto) Baso # (Auto) Nucleated RBC % (auto) Nucleated RBCs # Specimen Type Sample Site ABG pH ABG pCO2 ABG pO2 ABG HCO3 ABG Base Excess Suraj Test Hematocrit O2 Delivery Device O2 Liters/Min FiO2 [employer] ID Sodium Potassium Chloride Carbon Dioxide Anion Gap BUN Creatinine GFR Calculation Glucose Calculated Osmolality Calcium Total Bilirubin AST ALT Alkaline Phosphatase Total Protein Albumin Globulin UF Heparin Low Dose 1 6 UF Heparin Low Dose 2 4 UF Heparin High Dose 1 MERRITT Unfract Heparin Negative Completed Studies During Hospitalization Category Date Time Status CT angio chest PE protcl [id number] Stat Cat Scan 08/18/21 06:[address] chest abd pel wo con Routine Cat Scan 09/12/21 17:[address] chest abdomen pelvis [CT chest abd pel wo con] Cat Scan 09/03/21 09:34 Completed Routine CTA chest [CT angio chest PE protcl [id number]] Stat Cat Scan 08/28/21 08:21 Completed CXRP [XR chest 1V portable [id number]] Routine Exams 08/27/21 05:41 Completed CXRP [XR chest 1V portable [id number]] Routine Exams 08/29/21 10:41 Completed CXRP [XR chest 1V portable [id number]] Routine Exams 09/12/21 14:03 Completed XR chest 1V portable 10166 Q48H Exams 08/19/21 06:00 Completed XR chest 1V portable 51334 Q48H Exams 08/21/21 06:00 Completed XR chest 1V portable 69881 Q48H Exams 08/23/21 06:00 Completed XR chest 1V portable 85365 Q48H Exams 09/02/21 06:00 Completed XR chest 1V portable 83640 Q48H Exams 09/04/21 06:00 Completed XR chest 1V portable [id number] Q48H Exams 09/06/21 06:00 Completed XR chest 1V portable 11236 QAM Exams 08/31/21 06:00 Completed XR chest 1V portable [id number] QAM Exams 09/01/21 06:00 Completed XR chest 1V portable [id number] QAM Exams 09/03/21 06:00 Completed XR chest 1V portable [id number] Routine Exams 09/07/21 06:09 Completed XR chest 1V portable [id number] Routine Exams 09/08/21 08:18 Completed XR chest 1V portable [id number] Routine Exams 09/10/21 06:00 Completed XR chest 1V portable 41571 Routine Exams 09/14/21 04:00 Completed XR chest 1V portable [id number] Stat Exams 08/18/21 05:23 Completed XR chest 1V portable 64791 Stat Exams 09/10/21 10:35 [place] [id number] Routine Ultrasound 09/08/21 10:21 [place] [id number] Routine Ultrasound 08/24/21 12:07 Completed CV. echo complete* [id number] Routine Ultrasound 08/18/21 10:01 Completed Laboratory Last Values WBC 14.0 10^3/uL (4.0-10.0) H 09/15/21 03:20 Corrected WBC 54.7 10^3/cmm (4.8-10.8) H 09/03/21 03:40 RBC 2.60 10^6/uL (4.1-5.3) L 09/15/21 03:20 Hgb 8.2 g/dL (11.5-15.3) L 09/15/21 03:20 Hct 26.7 % (37.0-47.0) L 09/15/21 03:20 MCV 102.7 fl (81-99) H 09/15/21 03:20 MCH 31.5 pg (28.0-34.0) 09/15/21 03:20 MCHC 30.7 g/dL (30.0-36.0) 09/15/21 03:20 RDW 21.0 % (12.1-15.1) H 09/15/21 03:20 Plt Count 369 10^3/cmm (130-400) 09/15/21 03:20 MPV 9.5 fL (7.4-10.4) 09/15/21 03:20 Neut % (Auto) 84.7 % 09/15/21 03:20 Lymph % (Auto) 5.4 % 09/15/21 03:20 [place] % (Auto) 5.9 % 09/15/21 03:20 Eos % (Auto) 0.4 % 09/15/21 03:20 Baso % (Auto) 0.1 % 09/15/21 03:20 Reticulocyte % (Auto) 7.6 % (0.5-2.0) H 09/08/21 04:13 Neut # (Auto) 11.82 10^3/uL (1.8-7.7) H 09/15/21 03:20 Lymph # (Auto) 0.8 10^3/uL (0.8-4.8) 09/15/21 03:20 [place] # (Auto) 0.8 10^3/uL (0.2-0.9) 09/15/21 03:20 Eos # (Auto) 0.1 10^3/uL (0.0-0.8) 09/15/21 03:20 Baso # (Auto) 0.0 10^3/uL (0.0-0.1) 09/15/21 03:20 Nucleated RBC % (auto) 0.9 % 09/15/21 03:20 Total Counted 100 (0-100) 09/06/21 15:45 Atypical Lymphs % 0.0 % (0-5) 09/06/21 15:45 Absolute Neutrophils 13.7 10^3/cmm (1.4-6.5) H 09/06/21 15:45 Segmented Neutrophils 67 % 09/06/21 15:45 Abs Segm Neuts (Man) 11.7 10/cmm (1.6-7.1) H 09/06/21 15:45 Band Neutrophils 11.0 % 09/06/21 15:45 Abs Band Neuts (Man) 1.9 10^3/cmm (0.0-1.2) H 09/06/21 15:45 Absolute Lymphocytes 0.9 10^3/cmm (1.2-3.4) L 09/06/21 15:45 Lymphocytes (Manual) 5 % 09/06/21 15:45 Monocytes (Manual) 5.0 % 09/06/21 15:45 Absolute Monocytes 0.9 10^3/cmm (0.1-0.6) H 09/06/21 15:45 Eosinophils (Manual) 2 % 09/06/21 15:45 Absolute Eosinophils 0.3 10^3/cmm (0.0-0.7) 09/06/21 15:45 Basophils (Manual) 0.0 % 09/06/21 15:45 Absolute Basophils 0.0 10^3/cmm (0.0-0.2) 09/06/21 15:45 Metamyelocytes 8.0 % 09/06/21 15:45 Myelocytes 2.0 % 09/06/21 15:45 Nucleated RBCs 3.0 /100WBC (0-1) H 09/05/21 17:11 Nucleated RBCs # 0.1 /100WBC 09/15/21 03:20 Differential Comment Cancelled 08/29/21 11:00 Smudge Cells Trace 09/06/21 15:45 Platelet Estimate Normal (Normal) 09/06/21 15:45 Giant Platelets 1+ H 09/05/21 17:11 Polychromasia 1+ H 09/06/21 15:45 Hypochromasia 1+ H 09/06/21 15:45 Poikilocytosis Trace 09/06/21 15:45 Anisocytosis 2+ H 09/06/21 15:45 Macrocytosis Trace 09/06/21 15:45 Retic Production Index 4.81 09/08/21 04:13 Haptoglobin 10.0 mg/L (30-200) L 09/08/21 04:13 Heparin Require Pat 0.362 09/07/21 14:33 PT 18.80 SECONDS (12.1-14.9) H 09/13/21 09:25 INR 1.53 (0.8-1.2) H 09/13/21 09:25 APTT 30.1 SECONDS (23.9-36.7) 09/13/21 09:25 Fibrinogen 530 mg/dL (174-498) H 09/13/21 09:25 Fibrin Degrad Products Pos, 10-40 ug/mL (NEG) H 09/13/21 09:25 D-Dimer 1.24 ug/mIFEU (0-0.59) H 09/13/21 09:25 Specimen Type Arterial 09/15/21 04:00 Sample Site Radial, right 09/15/21 04:00 ABG pH 7.42 (7.35-7.45) 09/15/21 04:00 ABG pCO2 44.4 mmHg (35-45) 09/15/21 04:00 ABG pO2 60.0 mmHg (80.0-100.0) L 09/15/21 04:00 ABG HCO3 28.4 mmol/L (22-26) H 09/15/21 04:00 ABG O2 Saturation 93.7 09/14/21 10:28 ABG Base Excess 3.4 mmol/L (-2.0-2.0) H 09/15/21 04:00 Suraj Test Pos 09/15/21 04:00 A-a O2 Gradient 26.1 mmHg (5-10) H 09/14/21 10:28 Hematocrit 27.8 % (37-47) L 09/15/21 04:00 Hgb O2 Saturation 90.2 % (95-100) L 09/14/21 10:28 Carboxyhemoglobin 2.9 %THgb (0.4-20.1) 09/14/21 10:28 Methemoglobin 0.9 % (0.4-1.5) 09/14/21 10:28 Total Hemoglobin 9.2 g/dL (12-16) L 09/14/21 10:28 Sodium 147.0 mmol/L (131-143) H 09/14/21 10:28 Potassium 3.5 mmol/L (3.5-5.0) 09/14/21 10:28 Glucose 146.0 mg/dL (70-115) H 09/14/21 10:28 Ionized Calcium 1.2 mmol/L (1.1-1.4) 09/14/21 10:28 O2 Delivery Device Hag 09/15/21 04:00 O2 Liters/Min 35.0 % 09/15/21 04:00 FiO2 40.0 % 09/15/21 04:00 Tidal Volume 0.40 09/14/21 05:10 PEEP 5.0 cmH20 09/14/21 05:10 [employer] Hensa 09/15/21 04:00 Sodium 150 mmol/L (136-145) H 09/15/21 03:20 Potassium 3.8 mmol/L (3.5-5.1) 09/15/21 03:20 Chloride 114 mmol/L (98-107) H 09/15/21 03:20 Carbon Dioxide 27 mmol/L (22-29) 09/15/21 03:20 Anion Gap 12.8 (5-19) 09/15/21 03:20 BUN 18 mg/dL (6-20) 09/15/21 03:20 Creatinine 0.3 mg/dL (0.5-0.9) L 09/15/21 03:20 GFR Calculation 227.7 mL/min (90-130) H 09/15/21 03:20 Glucose 146 mg/dL (65-115) H 09/15/21 03:20 POC Glucose 182 mg/dL (70-110) H 09/13/21 00:03 Calculated Osmolality 315 mOsm/kg (285-295) H 09/15/21 03:20 Lactic Acid 1.3 mmol/L (0.5-2.2) 08/18/21 06:49 Calcium 9.5 mg/dL (8.5-10.5) 09/15/21 03:20 Phosphorus 3.0 mg/dL (2.5-4.5) 09/14/21 03:40 Magnesium 2.2 mg/dL (1.7-2.3) 09/14/21 03:40 Iron 67 ug/dL (37-145) 09/09/21 03:57 TIBC 170 mcg/dl 09/09/21 03:57 % Saturation 39.4 % (20-50) 09/09/21 03:57 Unsat Iron Binding 103 ug/dL (112-347) L 09/09/21 03:57 Total Bilirubin 0.8 mg/dL (0.15-1.2) 09/15/21 03:20 AST 36 U/L (0-32) H 09/15/21 03:20 ALT 42 U/L (0-33) H 09/15/21 03:20 Alkaline Phosphatase 83 IU/L (35-105) 09/15/21 03:20 Lactate Dehydrogenase 654 U/L (135-214) H 09/08/21 04:13 Creatine Kinase 256 U/L (26-192) H 08/30/21 04:23 Troponin T Gen 5 ng/L 31 ng/L (0-10) H 08/27/21 07:25 C-Reactive Protein 25.5 mg/L (0.0-4.9) H 09/05/21 03:39 NT-Pro-B Natriuret Pep 226 pg/mL (0-125) H 08/18/21 05:41 NT-Pro-B Natriuret Pep 242 pg/mL (0-125) H 08/18/21 05:41 Total Protein 6.1 g/dL (6.6-8.7) L 09/15/21 03:20 Albumin 3.2 g/dL (3.5-5.2) L 09/15/21 03:20 Globulin 2.9 g/dL (1.3-4.6) 09/15/21 03:20 Triglycerides 174 mg/dL (0-150) H 08/30/21 04:23 LMW Hep Low 0.1 IU/mL 84 % Release 09/07/21 14:33 LMW Hep Low 1.0 IU/mL 86 % Release 09/07/21 14:33 LMW Hep High 50 IU/ML 1 % Release 09/07/21 14:33 MERRITT LMWH Result Positive (Negative) A 09/07/21 14:33 Procalcitonin 0.38 ng/mL (0-0.5) 09/03/21 03:40 TSH 1.07 uIU/mL (0.27-4.20) 08/18/21 05:41 Random Cortisol 10.46 ug/dL (2.47-19.5) 09/02/21 05:00 Urine Color Yellow (Yellow) 09/07/21 08:00 Urine Appearance Clear (CLEAR) 09/07/21 08:00 Urine pH 5 (5-7) 09/07/21 08:00 Ur Specific [place] 1.020 (1.005-1.030) 09/07/21 08:00 Urine Protein 1+ (Negative) H 09/07/21 08:00 Urine Glucose (UA) Norm (Normal) 09/07/21 08:00 Urine Ketones 1+ (Negative) H 09/07/21 08:00 Urine Blood Neg (Negative) 09/07/21 08:00 Urine Nitrate Negative (Negative) 09/07/21 08:00 Urine Bilirubin Neg (Negative) 09/07/21 08:00 Urine Urobilinogen 1 mg/dL (Negative) H 09/07/21 08:00 Ur Leukocyte Esterase Negative (Negative) 09/07/21 08:00 Urine RBC 0-4 /hpf (0-2) H 09/07/21 08:00 Urine WBC 0-4 /hpf (0-5) H 09/07/21 08:00 Ur Squamous Epith Cells Rare /hpf (0-5) 09/07/21 08:00 Amorphous Sediment Trace /hpf 09/07/21 08:00 Urine Bacteria 1+ /hpf (NONE) H 09/07/21 08:00 Urine Mucus Trace /hpf 09/07/21 08:00 Fluid Source 08/29/21 11:00 Fluid Color Cancelled 08/29/21 11:00 Fluid Appearance Cancelled 08/29/21 11:00 Fluid WBC Cancelled 08/29/21 11:00 Fluid RBC Cancelled 08/29/21 11:00 Fluid Tot Cell Count Cancelled 08/29/21 11:00 Fld Polynuclear WBCs # Cancelled 08/29/21 11:00 Fld Polynuclear WBCs % Cancelled 08/29/21 11:00 Fl Mononucl WBCs #(Auto) Cancelled 08/29/21 11:00 Fl Mononuclear % Auto Cancelled 08/29/21 11:00 Bronch Specimen Source L. lower lobe 08/29/21 11:00 Bronchial Fluid Color Colorless 08/29/21 11:00 Bronchial Fluid Appearance Hazy (CLEAR) 08/29/21 11:00 Bronchial Fluid WBC 400 /uL 08/29/21 11:00 Bronchial Fluid RBC 350 10^3/uL 08/29/21 11:00 Bronch Cells Counted 200 08/29/21 11:00 Bronchial Neutrophils 68.00 % (0.9-2.3) H 08/29/21 11:00 Bronchial Lymphocytes 11.00 % (10.71-12.91) 08/29/21 11:00 Bronchial Eosinophils 3.00 % (0.13-0.25) H 08/29/21 11:00 Bronchial Macrophages 18.00 % (83.6-86.8) L 08/29/21 11:00 Bronchial Diff Comment Yes 08/29/21 11:00 Vancomycin Trough 16.9 ug/mL (10-15) H 09/03/21 22:28 Heparin-induced Ab Weak positive (NEGATIVE) A 09/07/21 14:33 UF Heparin Low Dose 1 6 % release 09/07/21 14:33 UF Heparin Low Dose 2 4 % release 09/07/21 14:33 UF Heparin High Dose 1 % release 09/07/21 14:33 MERRITT Unfract Heparin Negative (NEGATIVE) 09/07/21 14:33 Pneumocystis Source 08/29/21 11:00 Pneumocystis DNA (PCR) No dna detected copies/mL 08/29/21 11:00 Pneumocyst jiroveci PCR Not detected 08/29/21 11:00 Beta-(1,3)-D-Glucan <31 pg/mL 08/29/21 19:50 B-(1,3)-D-Glucan Intrp Negative 08/29/21 19:50 Blood Type A Positive 09/07/21 07:55 Rho(D) Type Positive 09/07/21 07:55 Antibody Screen Negative 09/07/21 07:55 PEYTON, Poly Interpret Negative 09/07/21 19:44 Crossmatch See Detail 09/07/21 07:55 Radiology Impressions Chest CTA 08/28/21 08:21 IMPRESSION: 1. Multiple small pulmonary emboli in 1st order through segmental branches of the right pulmonary artery. 2. Bilateral pneumonia, appears worsened when compared to the prior study. COMMENTS: Consistent with the [place] [employer]'s Incidental Findings Committee white paper (J Am Margie Radiol 2018): Any incidental renal lesion less than 1 cm or classified as too small to characterize, or any incidental cystic renal lesion characterized as simple-appearing, is likely benign. No follow-up imaging is recommended for these lesions per consensus recommendations based on imaging criteria. Duplex Scan Lower Extremity Artery 09/08/21 10:21 IMPRESSION: No stenosis or occlusion. Chest/Abdomen/Pelvis CT 09/12/21 17:05 IMPRESSION: 1. Irregular patchy bilateral ground-glass opacities suggest a bilateral interstitial pneumonia. 2. Endotracheal tube tip 3.9 cm from the jasper. IMPRESSION: 1. There are no acute abdominal findings. 2. Stable 1.8 cm cyst in the anterior aspect of the right kidney. No further workup needed. 3. Diverticulosis of the sigmoid colon Chest X-Ray 09/14/21 04:00 IMPRESSION: 1. Diffuse interstitial infiltrates in both lungs. Slight improvement on the right since prior study. 2. ET tube, enteric tube and right-sided central line all remaining in satisfactory position. Recent Clincial Data Last Vital Signs Temp 98.1 F 09/15/21 04:00 Pulse 104 H 09/15/21 10:03 Resp 21 H 09/15/21 10:03 BP 125/71 09/15/21 09:01 Pulse Ox 96 09/15/21 10:03 Vital Signs Temp Pulse Pulse Resp Resp BP Pulse Ox 09/15/21 10:03 104 H 21 H 09/15/21 09:01 105 H 24 H 125/71 92 09/15/21 08:30 100 24 H 124/70 94 09/15/21 08:00 24 H 155/92 93 09/15/21 07:54 72 20 H 09/15/21 07:51 76 20 H 97 09/15/21 07:30 87 24 H 142/81 91 09/15/21 07:00 98 24 H 127/85 90 09/15/21 06:30 92 24 H 148/82 90 09/15/21 06:00 76 24 H 132/84 95 09/15/21 05:00 94 141/85 97 09/15/21 04:00 98.1 F 96 20 H 147/98 94 09/15/21 03:38 82 23 H 09/15/21 03:36 91 22 H 96 09/15/21 03:01 100 152/82 96 09/15/21 02:01 88 24 H 152/85 94 09/15/21 01:00 101 H 140/84 91 09/15/21 00:00 98.1 F 107 H 22 H 166/91 91 09/14/21 23:42 82 22 H 09/14/21 23:40 80 20 H 95 09/14/21 23:00 86 163/95 96 Pulse Ox 09/15/21 10:03 96 09/15/21 09:01 09/15/21 08:30 09/15/21 08:00 09/15/21 07:54 97 09/15/21 07:51 09/15/21 07:30 09/15/21 07:00 09/15/21 06:30 09/15/21 06:00 09/15/21 05:00 09/15/21 04:00 09/15/21 03:38 95 09/15/21 03:36 09/15/21 03:01 09/15/21 02:01 09/15/21 01:00 09/15/21 00:00 09/14/21 23:42 95 09/14/21 23:40 09/14/21 23:00 Intake & Output/Weight 09/13/21 09/14/21 09/15/21 09/16/21 06:59 06:59 06:59 06:59 Intake Total 5.381 / 2025.381 1906.921 / 2372.480 9471.356 / 1102.356 390.132 / 390.132 Output Total 1950 / 1949 1795 / 1795 3050 / 3050 Balance 75.381 / 75.381 111.921 / 111.921 -1947.644 / -1947.644 390.132 / 390.132 Weight 91.626 kg 90.446 kg 87.226 kg Vitals Last Vital Signs Temp 98.1 F 09/15/21 04:00 Pulse 104 H 09/15/21 10:03 Resp 21 H 09/15/21 10:03 BP 125/71 09/15/21 09:01 Pulse Ox 96 09/15/21 10:03 TS Medications Medications Acetaminophen (Acetaminophen 325 Mg Tablet) 650 mg PO Q6H PRN PRN Reason: Mild/Mod Pain Or Temp >/= 101 Last Admin: 09/12/21 20:03 Dose: 650 mg Documented by: Hydrocodone Bitart/Acetaminophen (Hydrocodone-Acetaminophen 5-325 Mg Tablet) 1 tab PO Q6H PRN PRN Reason: MODERATE PAIN Last Admin: 09/09/21 19:56 Dose: 1 tab Documented by: Acetylcysteine (Acetylcysteine 200 Mg/Ml Sdv 4 Ml) 200 mg INHALATION BID.RESPIRATORY LUISITO Last Admin: 09/15/21 07:49 Dose: 200 mg Documented by: Al Hydrox/Mg Hydrox/Simethicone (Rwvx-Rrr-Mplnxsgpv-Pradeep 30 Ml Udc) 15 ml PO Q6H PRN PRN Reason: INDIGESTION Last Admin: 09/08/21 12:38 Dose: 15 ml Documented by: Alprazolam (Alprazolam 0.5 Mg Tablet) 1 mg PO QID PRN PRN Reason: ANXIETY Last Admin: 09/09/21 22:00 Dose: 1 mg Documented by: Apixaban (Apixaban 5 Mg Tablet) 5 mg PO Q12H LUISITO Last Admin: 09/14/21 23:16 Dose: Not Given Documented by: Artificial Tears (Artificial Tears Op Oint 3.5 Gm) 1 applic EYE-BOTH PRN PRN PRN Reason: DRY EYE(S) Ascorbic Acid (Ascorbic Acid 500 Mg Tablet) 500 mg PO DAILY [facility] Last Admin: 09/15/21 08:16 Dose: 500 mg Documented by: Aspirin (Aspirin 81 Mg Ec Tablet) 81 mg PO DAILY [facility] Last Admin: 09/15/21 08:17 Dose: 81 mg Documented by: Benzocaine (Cetylpyridinium Lozenge) 1 each MUCOUS MEM Q2H PRN PRN Reason: SORE THROAT Last Admin: 09/08/21 12:38 Dose: 1 each Documented by: Benzonatate (Benzonatate 100 Mg Capsule) 200 mg PO TID [facility] Last Admin: 08/30/21 07:44 Dose: Not Given Documented by: Bisacodyl (Bisacodyl 5 Mg Tablet) 10 mg PO DAILY [facility]; Protocol Last Admin: 09/15/21 08:16 Dose: 10 mg Documented by: Budesonide (Budesonide 0.5 Mg/2 Ml Neb) 0.5 mg INHALATION BID.RESPIRATORY [facility] Last Admin: 09/15/21 07:49 Dose: 0.5 mg Documented by: Ferrous Gluconate (Ferrous Gluconate 324 Mg Tablet) 324 mg PO BIDWM [facility] Last Admin: 09/15/21 08:17 Dose: 324 mg Documented by: Furosemide (Furosemide 10 Mg/Ml Sdv 4ml) 40 mg IVP DAILY [facility] Last Admin: 09/15/21 08:19 Dose: 40 mg Documented by: Propofol (Diprivan) 1,000 mg in 100 mls @ 0 mls/hr IV .Q0M [facility]; Protocol Last Titration: 09/14/21 12:40 Dose: Infused Documented by: Cisatracurium Besylate 100 mg/ (Sodium Chloride) 100 mls @ 0 mls/hr IV .Q0M [facility]; Protocol Last Titration: 09/11/21 10:46 Dose: 0 mcg/kg/min, 0 mls/hr Documented by: Piperacillin Sod/Tazobactam (Sod 3.375 gm/ Sodium Chloride) 50 mls @ 12.5 mls/hr IV Q8H [facility]; Protocol Last Infusion: 09/15/21 09:15 Dose: Infused Documented by: dexmedeTOMIDine 0.9 % NaCL (Precedex) 400 mcg in 100 mls @ 0 mls/hr IV .Q0M [facility]; Protocol Last Titration: 09/15/21 09:26 Dose: 0.4 mcg/kg/hr, 10.76 mls/hr Documented by: Dextrose (D5w) 1,000 mls @ 75 mls/hr IV .[id number] [facility] Last Admin: 09/15/21 08:19 Dose: 75 mls/hr Documented by: Ipratropium Somers (Ipratropium 0.5 Mg/2.5 Ml Neb) 0.5 mg INHALATION Q4H.RESPIRATORY [facility] Last Admin: 09/15/21 07:49 Dose: 0.5 mg Documented by: Lactulose (Lactulose Oral Liq 20 Gm/30 Ml Udc) 10 gm PO DAILY PRN; Protocol PRN Reason: Constipation (see protocol) Last Admin: 09/08/21 18:43 Dose: 10 gm Documented by: Lanolin (Lanolin Oint 7 Gm) 1 applic TOPICAL PRN PRN PRN Reason: DRYNESS Last Admin: 08/31/21 07:58 Dose: 1 applic Documented by: Levalbuterol HCl (Levalbuterol 0.63 Mg/3 Ml Neb) 0.63 mg INHALATION Q4H.RESPIRATORY PRN PRN Reason: SHORTNESS OF BREATH Last Admin: 09/07/21 15:07 Dose: 0.63 mg Documented by: Levalbuterol HCl (Levalbuterol 0.63 Mg/3 Ml Neb) 0.63 mg INHALATION Q4H.RESPIRATORY [facility] Last Admin: 09/15/21 07:49 Dose: 0.63 mg Documented by: Levothyroxine Sodium (Levothyroxine 25 Mcg Tablet) 25 mcg PO DAILY [facility] Last Admin: 09/15/21 08:17 Dose: 25 mcg Documented by: Lorazepam (Lorazepam 2 Mg/Ml Inj 1 Ml) 1 mg IVP Q4H PRN PRN Reason: ANXIETY Last Admin: 09/14/21 21:48 Dose: 1 mg Documented by: Magnesium Hydroxide (Magnesium Hydroxide 30 Ml Udc) 30 ml PO DAILY PRN PRN Reason: CONSTIPATION Last Admin: 09/04/21 08:36 Dose: 30 ml Documented by: Methylprednisolone Sodium Succinate (Methylprednisolone Sod Succ 40 Mg/Ml Inj) 20 mg IVP DAILY [facility] Last Admin: 09/15/21 08:19 Dose: 20 mg Documented by: Metoclopramide HCl (Metoclopramide 5 Mg/Ml Sdv 2 Ml) 5 mg IVP Q8H PRN PRN Reason: NAUSEA AND VOMITING Last Admin: 09/15/21 03:40 Dose: 5 mg Documented by: Montelukast Sodium (Montelukast Sodium 10 Mg Tablet) 10 mg PO DAILY [facility] Last Admin: 09/15/21 08:17 Dose: 10 mg Documented by: Ondansetron HCl (Ondansetron 2 Mg/Ml Sdv 2 Ml) 4 mg IVP Q4H PRN PRN Reason: NAUSEA AND VOMITING Last Admin: 09/15/21 08:18 Dose: 4 mg Documented by: Pantoprazole Sodium (Pantoprazole 40 Mg Sdv) 40 mg IVP DAILY [facility] Last Admin: 09/15/21 08:18 Dose: 40 mg Documented by: Quetiapine Fumarate (Quetiapine 25 Mg Tablet) 25 mg PO DAILY [facility] Last Admin: 09/15/21 08:17 Dose: 25 mg Documented by: Rocuronium [place] (Rocuronium 10 Mg/Ml Inj 5ml) 0 mg IVP Q1H PRN PRN 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: AIR 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 Last Admin: 09/10/21 11:00 Dose: 100 mg Documented by: Simethicone (Simethicone 80 Mg Chew) 80 mg PO TID PRN PRN Reason: gas Last Admin: 09/15/21 07:19 Dose: 80 mg Documented by: Sodium Chloride (Saline Nasal [place] 44ml Btl) 1 spray NASAL TID PRN PRN Reason: DRYNESS Sodium Chloride (Sodium Chloride 3.5% Neb 4 Ml Neb) 4 ml INHALATION BID.RESPIRATORY [facility] Last Admin: 09/15/21 07:51 Dose: 4 ml Documented by: Topiramate (Topiramate 100 Mg Tablet) 100 mg PO DAILY [facility] Last Admin: 09/15/21 08:16 Dose: 100 mg Documented by: Zinc Gluconate (Zinc Gluconate 50 Mg Tablet) 50 mg PO DAILY [facility] Last Admin: 09/15/21 08:16 Dose: 50 mg Documented by: Discontinued Medications Acetylcysteine (Acetylcysteine 200 Mg/Ml Sdv 4 Ml) 300 mg INHALATION BID.RESPIRATORY [facility] Last Admin: 09/10/21 11:14 Dose: 300 mg Documented by: Albuterol Sulfate (Albuterol 2.5 Mg/0.5 Ml Neb) 2.5 mg INHALATION Q4H.RESPIRATORY PRN PRN Reason: SHORTNESS OF BREATH Albuterol/Ipratropium (Ipratropium-Albuterol 3 Ml Neb) 3 ml INHALATION ONCE ONE Stop: 08/18/21 05:24 Last Admin: 08/18/21 06:05 Dose: 3 ml Documented by: Albuterol/Ipratropium (Ipratropium-Albuterol 3 Ml Neb) 3 ml INHALATION Q6H.RESPIRATORY [facility] Albuterol/Ipratropium (Ipratropium-Albuterol 3 Ml Neb) 3 ml INHALATION Q4H.RESPIRATORY [facility] Last Admin: 08/22/21 09:08 Dose: Not Given Documented by: Alprazolam (Alprazolam 1 Mg Tablet) 1 mg PO QID PRN PRN Reason: Anxiety Last Admin: 08/23/21 09:07 Dose: 1 mg Documented by: Alprazolam (Alprazolam 1 Mg Tablet) 1 mg PO BEDTIME [facility] Last Admin: 08/26/21 20:24 Dose: 1 mg Documented by: Alprazolam (Alprazolam 1 Mg Tablet) 1 mg PO QID PRN PRN Reason: Anxiety Last Admin: 08/28/21 21:10 Dose: 1 mg Documented by: Apixaban (Apixaban 5 Mg Tablet) 5 mg PO BID@0900,2100 [facility] Last Admin: 08/28/21 09:03 Dose: 5 mg Documented by: Apixaban (Apixaban 5 Mg Tablet) 10 mg PO Q12H [facility] Last Admin: 09/14/21 03:30 Dose: 10 mg Documented by: Artificial Tears (Artificial Tears Op Oint 3.5 Gm) 1 applic EYE-BOTH PRN PRN PRN Reason: DRY EYE(S) Last Admin: 08/30/21 16:27 Dose: 1 applic Documented by: Ascorbic Acid (Ascorbic Acid 500 Mg Tablet) 500 mg PO BID [facility] Last Admin: 08/27/21 09:22 Dose: 500 mg Documented by: Baricitinib (Baricitinib 2 Mg Tablet) 4 mg PO Q24H [facility] Stop: 08/31/21 15:45 Last Admin: 08/24/21 10:23 Dose: 4 mg Documented by: Benzonatate (Benzonatate 100 Mg Capsule) 100 mg PO TID [facility] Last Admin: 08/20/21 08:48 Dose: 100 mg Documented by: Bisacodyl (Bisacodyl 5 Mg Tablet) 10 mg PO DAILY PRN; Protocol PRN Reason: Constipation (see protocol) Last Admin: 08/20/21 08:47 Dose: 10 mg Documented by: Bisacodyl (Bisacodyl 10 Mg Supp) [address] ONCE ONE Stop: 09/07/21 08:07 Last Admin: 09/07/21 08:22 Dose: 10 mg Documented by: Budesonide (Budesonide 0.5 Mg/2 Ml Neb) 0.5 mg INHALATION BID [facility] Last Admin: 08/20/21 08:44 Dose: 0.5 mg Documented by: Carisoprodol (Carisoprodol 350 Mg Tablet) 350 mg PO TID PRN PRN Reason: Pain Last Admin: 08/27/21 20:45 Dose: 350 mg Documented by: Dexamethasone (Dexamethasone 10 Mg/Ml Inj) 6 mg IVP ONCE ONE Stop: 08/18/21 07:58 Last Admin: 08/18/21 08:15 Dose: 6 mg Documented by: Dexamethasone (Dexamethasone 4 Mg/Ml Inj) 6 mg IVP Q24H [facility] Last Admin: 08/26/21 10:42 Dose: 6 mg Documented by: Dextrose (Dextrose 50% Sdv 50 Ml) 50 ml IVP ONCE ONE Stop: 09/03/21 09:01 Last Admin: 09/03/21 10:57 Dose: 50 ml Documented by: Diphenhydramine HCl (Diphenhydramine 50 Mg/Ml Sdv 1ml) 50 mg IVP ONCE ONE Stop: 08/18/21 06:18 Last Admin: 08/18/21 06:22 Dose: 50 mg Documented by: Diphenhydramine HCl (Diphenhydramine 25 Mg Capsule) 25 mg PO NOW ONE Stop: 08/27/21 05:36 Last Admin: 08/27/21 05:47 Dose: 25 mg Documented by: Diphenhydramine HCl (Diphenhydramine 25 Mg Capsule) 25 mg PO NOW ONE Stop: 08/27/21 22:24 Last Admin: 08/27/21 23:17 Dose: 25 mg Documented by: Diphenhydramine HCl (Diphenhydramine 50 Mg/Ml Sdv 1ml) 50 mg IVP ONCE ONE Stop: 08/28/21 10:00 Last Admin: 08/28/21 13:47 Dose: Not Given Documented by: Diphenhydramine HCl (Diphenhydramine 50 Mg/Ml Sdv 1ml) 50 mg IVP ONCE ONE Stop: 08/28/21 13:06 Last Admin: 08/28/21 13:44 Dose: 50 mg Documented by: Enoxaparin Sodium (Enoxaparin 100 Mg/Ml Syringe) 90 mg 1 mg/kg (90 mg) SUBCUT Q12H [facility] Last Admin: 08/23/21 12:35 Dose: 90 mg Documented by: Enoxaparin Sodium (Enoxaparin 100 Mg/Ml Syringe) 100 mg SUBCUT Q12H [facility] Last Admin: 08/25/21 21:18 Dose: 100 mg Documented by: Enoxaparin Sodium (Enoxaparin 100 Mg/Ml Syringe) 100 mg 1 mg/kg (100 mg) SUBCUT Q12H [facility] Last Admin: 08/29/21 11:39 Dose: 100 mg Documented by: Enoxaparin Sodium (Enoxaparin 100 Mg/Ml Syringe) 90 mg 1 mg/kg (90 mg) SUBCUT Q12H [facility] Last Admin: 09/07/21 10:50 Dose: 90 mg Documented by: Etomidate (Etomidate 2 Mg/Ml Inj) 20 mg IVP NOW ONE Stop: 08/29/21 08:21 Last Admin: 08/29/21 09:16 Dose: 20 mg Documented by: Etomidate (Etomidate 2 Mg/Ml Inj) 20 mg IVP NOW ONE Stop: 09/10/21 09:07 Last Admin: 09/10/21 10:43 Dose: 20 mg Documented by: Fentanyl (Fentanyl 50 Mcg/Ml Inj 2ml) 50 mcg IVP ONCE ONE Stop: 08/29/21 08:21 Last Admin: 08/29/21 09:16 Dose: 50 mcg Documented by: Fexofenadine HCl (Fexofenadine 60 Mg Tablet) 180 mg PO BID [facility] Last Admin: 08/29/21 17:40 Dose: Not Given Documented by: Fluticasone Propionate (Fluticasone Nasal [place] 16gm Btl) 1 spray INTRANASAL DAILY [facility] Last Admin: 08/30/21 07:44 Dose: Not Given Documented by: Fluticasone Propionate (Fluticasone Nasal [place] 16gm Btl) 2 spray NASAL ONCE ONE Stop: 08/20/21 01:11 Last Admin: 08/20/21 01:19 Dose: 2 spray Documented by: Fluticasone Propionate (Fluticasone Nasal [place] 16gm Btl) 2 spray NASAL ONCE ONE Stop: 08/21/21 04:18 Last Admin: 08/21/21 04:35 Dose: 2 spray Documented by: Furosemide (Furosemide 10 Mg/Ml Sdv 4ml) 40 mg IVP ONCE ONE Stop: 08/18/21 10:23 Last Admin: 08/18/21 16:13 Dose: 40 mg Documented by: Furosemide (Furosemide 10 Mg/Ml Sdv 4ml) 40 mg IVP ONCE ONE Stop: 08/18/21 16:16 Last Admin: 08/18/21 16:30 Dose: 40 mg Documented by: Furosemide (Furosemide 10 Mg/Ml Sdv 4ml) 40 mg IVP ONCE ONE Stop: 08/19/21 07:49 Last Admin: 08/19/21 09:12 Dose: 40 mg Documented by: Furosemide (Furosemide 10 Mg/Ml Sdv 4ml) 40 mg IVP ONCE ONE Stop: 08/20/21 12:18 Last Admin: 08/20/21 13:29 Dose: 40 mg Documented by: Furosemide (Furosemide 10 Mg/Ml Sdv 2ml) 20 mg IVP ONCE ONE Stop: 08/25/21 11:29 Last Admin: 08/25/21 12:28 Dose: 20 mg Documented by: Furosemide (Furosemide 20 Mg Tablet) 20 mg PO DAILY@0800 [facility] Furosemide (Furosemide 10 Mg/Ml Sdv 2ml) 20 mg IVP ONCE ONE Stop: 08/27/21 14:38 Last Admin: 08/27/21 14:54 Dose: 20 mg Documented by: Furosemide (Furosemide 20 Mg Tablet) 40 mg PO DAILY@0800 [facility] Last Admin: 08/28/21 09:02 Dose: 40 mg Documented by: Furosemide (Furosemide 20 Mg Tablet) 60 mg PO DAILY@0800 [facility] Last Admin: 08/29/21 11:35 Dose: 60 mg Documented by: Furosemide (Furosemide 10 Mg/Ml Sdv 10ml) 60 mg IVP Q24H [facility] Last Admin: 08/29/21 14:14 Dose: 60 mg Documented by: Furosemide (Furosemide 10 Mg/Ml Sdv 4ml) 40 mg IVP ONCE ONE Stop: 08/30/21 09:07 Last Admin: 08/30/21 09:30 Dose: 40 mg Documented by: Furosemide (Furosemide 10 Mg/Ml Sdv 4ml) 40 mg IVP ONCE ONE Stop: 08/31/21 08:48 Last Admin: 08/31/21 09:23 Dose: 40 mg Documented by: Furosemide (Furosemide 10 Mg/Ml Sdv 2ml) 20 mg IVP ONCE ONE Stop: 09/01/21 08:33 Last Admin: 09/01/21 08:49 Dose: 20 mg Documented by: Furosemide (Furosemide 10 Mg/Ml Sdv 2ml) 20 mg IVP ONCE ONE Stop: 09/02/21 10:28 Last Admin: 09/02/21 10:50 Dose: 20 mg Documented by: Furosemide (Furosemide 10 Mg/Ml Sdv 2ml) 20 mg IVP ONCE ONE Stop: 09/03/21 13:50 Last Admin: 09/03/21 15:16 Dose: 20 mg Documented by: Furosemide (Furosemide 10 Mg/Ml Sdv 4ml) 40 mg IVP ONCE ONE Stop: 09/04/21 07:38 Last Admin: 09/04/21 08:17 Dose: 40 mg Documented by: Furosemide (Furosemide 10 Mg/Ml Sdv 4ml) 40 mg IVP ONCE ONE Stop: 09/05/21 11:40 Last Admin: 09/05/21 13:13 Dose: 40 mg Documented by: Furosemide (Furosemide 10 Mg/Ml Sdv 2ml) 20 mg IVP ONCE ONE Stop: 09/06/21 12:33 Last Admin: 09/06/21 12:41 Dose: 20 mg Documented by: Furosemide (Furosemide 10 Mg/Ml Sdv 2ml) 20 mg IVP ONCE ONE Stop: 09/06/21 18:01 Last Admin: 09/06/21 18:00 Dose: 20 mg Documented by: Furosemide (Furosemide 10 Mg/Ml Sdv 4ml) 40 mg IVP Q12H [facility] Last Admin: 09/09/21 07:42 Dose: 40 mg Documented by: Furosemide (Furosemide 10 Mg/Ml Sdv 4ml) 40 mg IVP ONCE ONE Stop: 09/10/21 00:54 Last Admin: 09/10/21 01:18 Dose: 40 mg Documented by: Furosemide (Furosemide 10 Mg/Ml Sdv 2ml) 20 mg IVP ONCE ONE Stop: 09/13/21 14:01 Last Admin: 09/13/21 13:10 Dose: 20 mg Documented by: Guaifenesin/Dextromethorphan (Guaifenesin-Dextromethorphan Udc 10 Ml) 5 ml PO Q4H PRN PRN Reason: COUGH Last Admin: 08/23/21 05:20 Dose: 5 ml Documented by: Guaifenesin/Dextromethorphan (Guaifenesin-Dextromethorphan Udc 10 Ml) 10 ml PO Q4H PRN PRN Reason: COUGH Last Admin: 08/28/21 21:11 Dose: 10 ml Documented by: Heparin Sodium (Porcine) (Heparin 5,000 Unit/Ml Inj 1 Ml) 0 unit IV PRN PRN; Protocol PRN Reason: Heparin weight-base protocol Last Admin: 08/31/21 11:13 Dose: 1,900 unit Documented by: Hydrocortisone Sodium Succinate (Hydrocortisone 100 Mg/2 Ml Sdv) 100 mg IVP ONCE ONE Stop: 08/18/21 06:18 Last Admin: 08/18/21 06:24 Dose: 100 mg Documented by: Hydrocortisone Sodium Succinate (Hydrocortisone 100 Mg/2 Ml Sdv) 100 mg IVP ONCE ONE Stop: 09/02/21 16:21 Last Admin: 09/02/21 17:04 Dose: 100 mg Documented by: Hydromorphone HCl (Hydromorphone 1 Mg/Ml Inj 1 Ml) 0.4 mg IVP Q4H PRN PRN Reason: SEVERE PAIN Last Admin: 09/14/21 16:34 Dose: 0.4 mg Documented by: Remdesivir 200 mg/ Sodium (Chloride) 60 mls @ 100 mls/hr IV ONCE ONE Stop: 08/18/21 07:35 Last Admin: 08/18/21 07:40 Dose: Not Given Documented by: Remdesivir 100 mg/ Sodium (Chloride) 60 mls @ 100 mls/hr IV ONCE ONE Stop: 08/18/21 08:47 Last Admin: 08/18/21 08:21 Dose: 100 mls/hr Documented by: Lidocaine HCl 5 ml/ Potassium (Chloride) 105 mls @ 25 mls/hr IV ONCE ONE Stop: 08/18/21 12:38 Last Admin: 08/18/21 10:15 Dose: Not Given Documented by: Remdesivir 100 mg/ Sodium (Chloride) 100 mls @ 100 mls/hr IV Q24H [facility] Stop: 08/22/21 06:59 Last Infusion: 08/22/21 06:45 Dose: Infused Documented by: Tocilizumab 740 mg/ Sodium (Chloride) 100 mls @ 100 mls/hr IV ONCE ONE Stop: 08/19/21 09:59 Last Infusion: 08/19/21 10:37 Dose: Infused Documented by: Acetaminophen (Acetaminophen) 1,000 mg in 100 mls @ 400 mls/hr IV ONCE ONE Stop: 08/19/21 14:19 Last Infusion: 08/19/21 18:31 Dose: Infused Documented by: Acetaminophen (Acetaminophen) 1,000 mg in 100 mls @ 400 mls/hr IV DAILY PRN PRN Reason: pain Stop: 08/25/21 09:14 Ceftriaxone Sodium 1,000 mg/ (Sodium Chloride) 50 mls @ 100 mls/hr IV Q12H [facility]; Protocol Last Infusion: 08/27/21 06:18 Dose: Infused Documented by: Acetaminophen (Acetaminophen) 1,000 mg in 100 mls @ 400 mls/hr IV Q12H PRN PRN Reason: pain Last Infusion: 08/27/21 03:53 Dose: Infused Documented by: Imipenem/Cilastatin Sodium 500 (mg/ Sodium Chloride) 100 mls @ 200 mls/hr IV Q6H [facility]; Protocol Stop: 09/07/21 10:59 Last Infusion: 09/07/21 10:56 Dose: Infused Documented by: Trimethoprim/Sulfamethoxazole (548 mg/ Dextrose) 534.25 mls @ 500 mls/hr IV Q8H [facility] Trimethoprim/Sulfamethoxazole (544 mg/ Dextrose) 534 mls @ 500 mls/hr IV Q8H [facility] Last Infusion: 09/01/21 03:24 Dose: Infused Documented by: Vancomycin/PEG/[place]/Lysine/Water (Vancocin) 1,250 mg in 250 mls @ 250 mls/hr IV Q8H [facility] Last Infusion: 08/29/21 03:59 Dose: Infused Documented by: dexmedeTOMIDine 0.9 % NaCL (Precedex) 400 mcg in 100 mls @ 0 mls/hr IV .Q0M [facility]; Protocol Last Admin: 09/04/21 17:08 Dose: 0.7 mcg/kg/hr, 18.11 mls/hr Documented by: Propofol (Diprivan) 1,000 mg in 100 mls @ 0 mls/hr IV .Q0M [facility]; Protocol Last Titration: 09/07/21 16:05 Dose: Infused Documented by: Norepinephrine Bitartrate 4 mg (/ Dextrose) 254 mls @ 0 mls/hr IV .Q0M [facility]; Protocol Last Admin: 09/03/21 09:12 Dose: 18 mcg/min, 68.58 mls/hr Documented by: Midazolam HCl 100 mg/ Sodium (Chloride) 100 mls @ 0 mls/hr IV .Q0M [facility]; Protocol Last Titration: 09/06/21 02:30 Dose: Infused Documented by: Cisatracurium Besylate 100 mg/ (Sodium Chloride) 100 mls @ 0 mls/hr IV .Q0M [facility]; Protocol Last Titration: 09/02/21 19:00 Dose: 0 mcg/kg/min, 0 mls/hr Documented by: Fentanyl 2,500 mcg/ Sodium (Chloride) 250 mls @ 0 mls/hr IV .Q0M [facility]; Protocol Last Titration: 09/07/21 12:45 Dose: Infused Documented by: Vancomycin/PEG/[place]/Lysine/Water (Vancocin) 1,250 mg in 250 mls @ 250 mls/hr IV Q8H [facility] Last Infusion: 08/31/21 05:06 Dose: Infused Documented by: Heparin Sodium/Sodium Chloride (Heparin Drip) 25,000 unit in 500 mls @ 0 mls/hr IV .Q0M [facility]; Protocol Last Titration: 09/02/21 10:43 Dose: Infused Documented by: Caspofungin 70 mg/ Sodium (Chloride) 250 mls @ 250 mls/hr IV ONCE ONE Stop: 08/30/21 17:59 Last Infusion: 08/30/21 19:04 Dose: Infused Documented by: Caspofungin 50 mg/ Sodium (Chloride) 250 mls @ 250 mls/hr IV Q24H [facility] Last Infusion: 08/31/21 19:03 Dose: Infused Documented by: Vancomycin/PEG/[place]/Lysine/Water (Vancocin) 1,250 mg in 250 mls @ 250 mls/hr IV Q12H [facility] Last Infusion: 09/01/21 05:31 Dose: Infused Documented by: Fluconazole 100 mg/ N/A 50 mls @ 50 mls/hr IV Q24H [facility] Stop: 09/04/21 16:29 Fluconazole 100 mg/ N/A 50 mls @ 50 mls/hr IV Q24H [facility] Stop: 09/04/21 16:29 Last Infusion: 09/02/21 19:00 Dose: Infused Documented by: Sodium Chloride (Sodium Chloride 0.9%) 1,000 mls @ 999 mls/hr IV .Q1H1M [facility] Stop: 09/02/21 17:15 Last Admin: 09/02/21 16:11 Dose: 999 mls/hr Documented by: Albumin Human (Albumin) 12.5 gm in 50 mls @ 60 mls/hr IV ONCE ONE Stop: 09/02/21 16:56 Last Admin: 09/02/21 16:10 Dose: 60 mls/hr Documented by: Norepinephrine Bitartrate 8 mg (/ Dextrose) 508 mls @ 0 mls/hr IV .Q0M [facility]; Protocol Last Titration: 09/03/21 10:00 Dose: Infused Documented by: Vancomycin/PEG/[place]/Lysine/Water (Vancocin) 1,500 mg in 300 mls @ 200 mls/hr IV Q12H [facility] Stop: 09/07/21 23:59 Last Infusion: 09/07/21 14:28 Dose: Infused Documented by: Acetaminophen (Acetaminophen) 1,000 mg in 100 mls @ 400 mls/hr IV ONCE ONE Stop: 09/03/21 04:40 Last Infusion: 09/03/21 05:00 Dose: Infused Documented by: Sodium Chloride (Sodium Chloride 0.9% (100 Ml)) Confirm Administered Dose 100 mls @ as directed .ROUTE .STK-MED ONE Stop: 09/03/21 05:56 Last Admin: 09/03/21 06:30 Dose: 1 mls/hr Documented by: Fluconazole (Diflucan Premix) 200 mg in 100 mls @ 100 mls/hr IV Q24H [facility] Stop: 09/08/21 16:59 Last Infusion: 09/05/21 18:47 Dose: Infused Documented by: Insulin Human Regular 10 unit/ (N/A) 0.1 mls @ 0 mls/hr IVP ONCE ONE Stop: 09/03/21 08:47 Last Admin: 09/03/21 10:56 Dose: 10 mls/hr Documented by: Sodium Chloride (Sodium Chloride 0.9% (100 Ml)) Confirm Administered Dose 100 mls @ as directed .ROUTE .ST-MED ONE Stop: 09/03/21 12:55 Last Admin: 09/03/21 13:36 Dose: 50 mls/hr Documented by: Albumin Human (Albumin) 12.5 gm in 50 mls @ 60 mls/hr IV ONCE ONE Stop: 09/03/21 14:38 Last Admin: 09/03/21 15:15 Dose: 60 mls/hr Documented by: Dexmedetomidine HCl 1,000 mcg/ (Sodium Chloride) 260 mls @ 0 mls/hr IV .Q0M [facility]; Protocol Last Titration: 09/11/21 13:50 Dose: Infused Documented by: Sodium Chloride (Sodium Chloride 0.9% (100 Ml)) Confirm Administered Dose 100 mls @ as directed .ROUTE .[facility] ONE Stop: 09/05/21 16:48 Last Infusion: 09/05/21 18:48 Dose: Infused Documented by: Lidocaine HCl 5 ml/ Potassium (Chloride) 105 mls @ 50 mls/hr IV ONCE ONE Stop: 09/06/21 11:20 Last Infusion: 09/06/21 12:09 Dose: Infused Documented by: Potassium Chloride (K-Juan Carlos Premix) 100 mls @ 50 mls/hr IV ONCE ONE Stop: 09/07/21 12:59 Last Infusion: 09/07/21 12:56 Dose: Infused Documented by: Sodium Chloride (Sodium Chloride 0.9% (100 Ml)) Confirm Administered Dose 100 mls @ as directed .ROUTE .[facility]-MED ONE Stop: 09/07/21 13:14 Last Infusion: 09/07/21 16:06 Dose: Infused Documented by: Argatroban 250 mg/ Sodium (Chloride) 252.5 mls @ 0 mls/hr IV .Q0M [facility]; Protocol Stop: 09/08/21 15:59 Last Titration: 09/08/21 16:12 Dose: Infused Documented by: Lidocaine HCl 5 ml/ Potassium (Chloride) 105 mls @ 50 mls/hr IV ONCE ONE Stop: 09/08/21 10:35 Last Infusion: 09/08/21 13:18 Dose: Infused Documented by: Potassium Chloride (K-Juan Carlos Premix) 100 mls @ 50 mls/hr IV ONCE ONE Stop: 09/08/21 10:19 Lidocaine HCl 5 ml/ Potassium (Chloride) 105 mls @ 25 mls/hr IV Q4H [facility] Stop: 09/09/21 13:14 Last Admin: 09/09/21 07:50 Dose: 25 mls/hr Documented by: Caspofungin 70 mg/ Sodium (Chloride) 250 mls @ 250 mls/hr IV ONCE ONE Stop: 09/09/21 16:59 Last Admin: 09/09/21 16:48 Dose: 250 mls/hr Documented by: Caspofungin 50 mg/ Sodium (Chloride) 250 mls @ 250 mls/hr IV Q24H [facility] Last Infusion: 09/13/21 17:33 Dose: Infused Documented by: Potassium Chloride (K-Juan Carlos) 100 mls @ 25 mls/hr IV ONCE ONE Stop: 09/10/21 09:03 Last Infusion: 09/10/21 10:16 Dose: Infused Documented by: Midazolam HCl 100 mg/ Sodium (Chloride) 100 mls @ 0 mls/hr IV .Q0M [facility]; Protocol Last Titration: 09/14/21 06:34 Dose: 0 mg/hr, 0 mls/hr Documented by: Fentanyl 2,500 mcg/ Sodium (Chloride) 250 mls @ 0 mls/hr IV .Q0M [facility]; Protocol Last Titration: 09/14/21 12:39 Dose: Infused Documented by: Norepinephrine Bitartrate 8 mg (/ Dextrose) 508 mls @ 0 mls/hr IV .Q0M [facility]; Protocol Last Titration: 09/14/21 12:40 Dose: Infused Documented by: Potassium Chloride (K-Juan Carlos Premix) 100 mls @ 50 mls/hr IV ONCE ONE Stop: 09/11/21 00:38 Last Infusion: 09/11/21 13:50 Dose: Infused Documented by: Lidocaine HCl 5 ml/ Potassium (Chloride) 105 mls @ 25 mls/hr IV ONCE ONE Stop: 09/14/21 11:26 Last Infusion: 09/14/21 12:41 Dose: Infused Documented by: Lidocaine HCl 5 ml/ Potassium (Chloride) 105 mls @ 25 mls/hr IV ONCE ONE Stop: 09/14/21 16:11 Last Infusion: 09/15/21 09:18 Dose: Infused Documented by: Potassium Chloride (K-Juan Carlos) 100 mls @ 25 mls/hr IV ONCE ONE Stop: 09/15/21 02:53 Last Infusion: 09/15/21 03:30 Dose: Infused Documented by: Iodixanol (Iodixanol 320 Mg/Ml 100ml Btl) 0 ml IV ONCE ONE Stop: 08/18/21 07:14 Last Admin: 08/18/21 07:14 Dose: 65 ml Documented by: Iodixanol (Iodixanol 320 Mg/Ml 100ml Btl) 0 ml IV ONCE ONE Stop: 08/28/21 14:35 Last Admin: 08/28/21 14:35 Dose: 61 ml Documented by: Ketorolac Tromethamine (Ketorolac 30 Mg/Ml Inj) 15 mg IVP ONCE ONE Stop: 08/27/21 05:21 Last Admin: 08/27/21 05:47 Dose: 15 mg Documented by: Ketorolac Tromethamine (Ketorolac 30 Mg/Ml Inj) 15 mg IVP ONCE ONE Stop: 08/28/21 22:31 Ketorolac Tromethamine (Ketorolac 30 Mg/Ml Inj) 15 mg IVP ONCE ONE Stop: 08/27/21 23:09 Last Admin: 08/27/21 23:27 Dose: 15 mg Documented by: Lanolin (Lanolin Oint 7 Gm) 1 applic TOPICAL PRN PRN PRN Reason: DRYNESS Last Admin: 08/20/21 02:34 Dose: 1 tube Documented by: Levofloxacin (Levofloxacin 500 Mg Tablet) 500 mg PO DAILY@0600 [facility]; Protocol Stop: 08/23/21 10:21 Last Admin: 08/23/21 05:20 Dose: 500 mg Documented by: Levofloxacin (Levofloxacin 750 Mg Tablet) 750 mg PO DAILY@0600 [facility]; Protocol Stop: 09/03/21 19:31 Last Admin: 09/03/21 05:40 Dose: 750 mg Documented by: Lidocaine HCl (Lidocaine 2% Inj 20 Ml) 20 ml INJECTION ONCE ONE Stop: 08/29/21 13:06 Last Admin: 08/29/21 14:15 Dose: Not Given Documented by: Lidocaine HCl (Lidocaine 1% Inj 20 Ml) 5 ml IV ONCE ONE Stop: 08/29/21 13:17 Last Admin: 08/29/21 14:15 Dose: 5 ml Documented by: Lidocaine HCl (Lidocaine 2% Inj 20 Ml) 20 ml INJECTION ONCE ONE Stop: 09/10/21 13:35 Last Admin: 09/10/21 14:54 Dose: 20 ml Documented by: Lorazepam (Lorazepam 2 Mg/Ml Inj 1 Ml) 2 mg IVP Q4H PRN PRN Reason: ANXIETY Last Admin: 08/29/21 04:00 Dose: 2 mg Documented by: Lorazepam (Lorazepam 2 Mg/Ml Inj 1 Ml) 2 mg IVP NOW ONE Stop: 08/29/21 03:59 Last Admin: 08/29/21 04:00 Dose: 2 mg Documented by: Lorazepam (Lorazepam 2 Mg/Ml Inj 1 Ml) Confirm Administered Dose 2 mg .ROUTE .STK-MED ONE Stop: 09/10/21 06:48 Last Admin: 09/10/21 07:24 Dose: Not Given Documented by: Lorazepam (Lorazepam 2 Mg/Ml Inj 1 Ml) 1 mg IVP NOW ONE Stop: 09/10/21 06:55 Last Admin: 09/10/21 06:56 Dose: 1 mg Documented by: Lorazepam (Lorazepam 2 Mg/Ml Inj 1 Ml) 1 mg IVP Q4H PRN PRN Reason: ANXIETY Losartan Potassium (Losartan 50 Mg Tablet) 50 mg PO DAILY [facility] Last Admin: 08/25/21 09:05 Dose: Not Given Documented by: Magnesium Hydroxide (Magnesium Hydroxide 30 Ml Udc) 30 ml PO ONCE ONE Stop: 08/20/21 12:19 Last Admin: 08/20/21 17:27 Dose: Not Given Documented by: Magnesium Hydroxide (Magnesium Hydroxide 30 Ml Udc) 30 ml PO ONCE PRN PRN Reason: CONSTIPATION Last Admin: 08/20/21 18:58 Dose: 30 ml Documented by: Magnesium Hydroxide (Magnesium Hydroxide 30 Ml Udc) 30 ml PO NOW ONE Stop: 09/01/21 08:33 Last Admin: 09/01/21 08:49 Dose: 30 ml Documented by: Methylprednisolone Sodium Succinate (Methylprednisolone Sod Succ 125 Mg/2 Ml Inj) 60 mg IVP DAILY [facility] Methylprednisolone Sodium Succinate (Methylprednisolone Sod Succ 40 Mg/Ml Inj) 40 mg IVP ONCE ONE Stop: 08/28/21 10:00 Last Admin: 08/28/21 13:47 Dose: Not Given Documented by: Methylprednisolone Sodium Succinate (Methylprednisolone Sod Succ 40 Mg/Ml Inj) 40 mg IVP ONCE ONE Stop: 08/28/21 13:07 Last Admin: 08/28/21 13:46 Dose: 40 mg Documented by: Methylprednisolone Sodium Succinate (Methylprednisolone Sod Succ 40 Mg/Ml Inj) 30 mg IVP DAILY [facility] Last Admin: 09/05/21 08:43 Dose: 30 mg Documented by: Methylprednisolone Sodium Succinate (Methylprednisolone Sod Succ 40 Mg/Ml Inj) 20 mg IVP DAILY [facility] Last Admin: 09/06/21 07:49 Dose: 20 mg Documented by: Methylprednisolone Sodium Succinate (Methylprednisolone Sod Succ 40 Mg/Ml Inj) 30 mg IVP DAILY [facility] Last Admin: 09/08/21 09:51 Dose: 30 mg Documented by: Methylprednisolone Sodium Succinate (Methylprednisolone Sod Succ 40 Mg/Ml Inj) 15 mg IVP DAILY [facility] Last Admin: 09/09/21 07:41 Dose: 15 mg Documented by: Methylprednisolone Sodium Succinate (Methylprednisolone Sod Succ 40 Mg/Ml Inj) 40 mg IVP Q12H [facility] Last Admin: 09/11/21 07:58 Dose: 40 mg Documented by: Methylprednisolone Sodium Succinate (Methylprednisolone Sod Succ 40 Mg/Ml Inj) 20 mg IVP Q12H [facility] Last Admin: 09/13/21 20:12 Dose: 20 mg Documented by: Midazolam HCl (Midazolam 1 Mg/Ml Inj 2 Ml) 2 mg IVP ONCE ONE Stop: 08/29/21 08:21 Last Admin: 08/29/21 09:16 Dose: 2 mg Documented by: Midazolam HCl (Midazolam 1 Mg/Ml Inj 2 Ml) 2 mg IVP ONCE ONE Stop: 09/07/21 00:09 Last Admin: 09/07/21 00:14 Dose: 2 mg Documented by: Midazolam HCl (Midazolam 1 Mg/Ml Inj 2 Ml) Confirm Administered Dose 2 mg .ROUTE .STK-MED ONE Stop: 09/07/21 00:11 Last Admin: 09/07/21 00:26 Dose: Not Given Documented by: Midazolam HCl (Midazolam 1 Mg/Ml Inj 2 Ml) 2 mg IVP ONCE ONE Stop: 09/10/21 09:09 Last Admin: 09/10/21 10:42 Dose: 2 mg Documented by: Morphine Sulfate (Morphine 4 Mg/Ml Sdv 1 Ml) 1 mg IVP ONCE ONE Stop: 08/19/21 05:24 Last Admin: 08/19/21 05:46 Dose: Not Given Documented by: Morphine Sulfate (Morphine 4 Mg/Ml Sdv 1 Ml) 2 mg IVP Q4H PRN PRN Reason: SEVERE PAIN Ondansetron HCl (Ondansetron 2 Mg/Ml Sdv 2 Ml) 4 mg IVP Q8H PRN PRN Reason: vomiting, or N/V if npo Last Admin: 08/20/21 19:33 Dose: 4 mg Documented by: Ondansetron HCl (Ondansetron 2 Mg/Ml Sdv 2 Ml) 4 mg IVP Q6H PRN PRN Reason: NAUSEA AND VOMITING Last Admin: 09/15/21 01:52 Dose: 4 mg Documented by: Pantoprazole Sodium (Pantoprazole Dr 40 Mg Tablet) 40 mg PO DAILY [facility] Last Admin: 09/03/21 09:03 Dose: 40 mg Documented by: Polyethylene Glycol (Polyethylene Glycol 3350 Pkt 17 Gm) 17 gm PO BID [facility] Last Admin: 08/21/21 20:34 Dose: 17 gm Documented by: Potassium Chloride (Potassium Chloride Er 20 Meq Tablet) 40 meq PO ONCE ONE Stop: 08/18/21 10:23 Last Admin: 08/18/21 13:17 Dose: 40 meq Documented by: Potassium Chloride (Potassium Chloride Er 20 Meq Tablet) 40 meq PO Q1H [facility] Stop: 08/19/21 15:01 Last Admin: 08/19/21 17:27 Dose: 40 meq Documented by: Potassium Chloride (Potassium Chloride Er 20 Meq Tablet) 40 meq PO Q1H [facility] Stop: 08/19/21 17:01 Last Admin: 08/19/21 20:42 Dose: Not Given Documented by: Potassium Chloride (Potassium Chloride Er 20 Meq Tablet) 40 meq PO ONCE ONE Stop: 08/23/21 13:01 Last Admin: 08/23/21 15:45 Dose: Not Given Documented by: Potassium Chloride (Potassium Chloride Er 20 Meq Tablet) 40 meq PO ONCE ONE Stop: 08/23/21 15:45 Last Admin: 08/23/21 16:11 Dose: 40 meq Documented by: Potassium Chloride (Potassium Chloride Er 20 Meq Tablet) 40 meq PO ONCE ONE Stop: 08/27/21 09:22 Last Admin: 08/27/21 11:11 Dose: 40 meq Documented by: Potassium Chloride (Potassium Chloride Er 20 Meq Tablet) 20 meq PO DAILY [facility] Last Admin: 08/30/21 07:43 Dose: 20 meq Documented by: Potassium Chloride (Potassium Chloride Er 20 Meq Tablet) 40 meq PO ONCE ONE Stop: 09/09/21 21:33 Last Admin: 09/09/21 22:00 Dose: 40 meq Documented by: Potassium Chloride (Potassium Chloride Er 20 Meq Tablet) 40 meq PO ONCE ONE Stop: 09/10/21 03:35 Potassium Chloride (Potassium Chloride Er 20 Meq Tablet) 40 meq PO ONCE ONE Stop: 09/14/21 07:27 Last Admin: 09/14/21 08:06 Dose: 40 meq Documented by: Prednisone (Prednisone 20 Mg Tablet) 40 mg PO BID [facility] Stop: 09/01/21 23:59 Last Admin: 08/31/21 17:03 Dose: 40 mg Documented by: Prednisone (Prednisone 20 Mg Tablet) 40 mg PO DAILY [facility] Stop: 09/01/21 23:59 Last Admin: 09/01/21 08:50 Dose: 40 mg Documented by: Prednisone (Prednisone 20 Mg Tablet) 40 mg PO DAILY [facility] Last Admin: 09/03/21 09:03 Dose: 40 mg Documented by: Quetiapine Fumarate (Quetiapine 25 Mg Tablet) 25 mg PO BID [facility] Last Admin: 09/13/21 08:14 Dose: 25 mg Documented by: Rocuronium [place] (Rocuronium 10 Mg/Ml Inj 5ml) 100 mg IV NOW ONE Stop: 08/29/21 08:21 Last Admin: 08/29/21 09:16 Dose: 100 mg Documented by: Senna/Docusate Sodium (Sennosides-Docusate Tablet) 1 tab PO DAILY [facility] Last Admin: 09/11/21 08:01 Dose: 1 tab Documented by: Simethicone (Simethicone 40 Mg/0.6 Ml Bottle 30ml) 40 mg PO QID PRN PRN Reason: FLATULENCE Trazodone HCl (Trazodone 100 Mg Tablet) 200 mg PO BEDTIME [facility] Last Admin: 09/02/21 20:09 Dose: 200 mg Documented by: Zolpidem Tartrate (Zolpidem 5 Mg Tablet) 5 mg PO NOW ONE Stop: 09/08/21 23:03 Last Admin: 09/09/21 00:00 Dose: 5 mg Documented by: Allergies Everything Allergy (Uncoded 08/05/19 13:39) ALGY-Swell Lip/Tongue/Throat Patient states that she has numerous allergies, she only knows for sure that she is allergic to steroids. She does not have a list nor does she remember her allergies, just states she is allergic to everything. Steroids Allergy (Uncoded 08/05/19 13:38) ALGY-Swell Lip/Tongue/Throat Home Medications alprazolam 1 mg tablet 1 mg PO QID PRN 08/05/19 [History Confirmed 08/18/21] carisoprodol 350 mg tablet 350 mg PO TID PRN 08/05/19 [History Confirmed 08/18/21] ergocalciferol (vitamin D2) 1,250 mcg (50,000 unit) capsule 50,000 unit PO Q7D 08/05/19 [History Confirmed 08/18/21] furosemide 40 mg tablet (Lasix) 40 mg PO DAILY PRN 08/05/19 [History Confirmed 08/18/21] levothyroxine 25 mcg capsule 25 mcg PO DAILY 08/05/19 [History Confirmed 08/18/21] losartan 50 mg tablet 50 mg PO DAILY 08/05/19 [History Confirmed 08/18/21] montelukast 10 mg tablet 10 mg PO DAILY 08/05/19 [History Confirmed 08/18/21] pantoprazole 40 mg tablet,delayed release 40 mg PO DAILY 08/05/19 [History Confirmed 08/18/21] potassium chloride 10 mEq capsule,extended release 10 meq PO DAILY 08/05/19 [History Confirmed 08/18/21] topiramate 100 mg tablet 100 mg PO DAILY 08/05/19 [History Confirmed 08/18/21] trazodone 100 mg tablet 200 mg PO BEDTIME 08/05/19 [History Confirmed 08/18/21] mecobalamin (vitamin B12) 1,000 mcg chewable tablet (B12 Active) 1,000 mcg PO DAILY 12/17/19 [History Confirmed 08/18/21] night splint #1 ea 02/05/20 [Rx Confirmed 08/18/21] [place] ankle braces, bilateral #1 ea 05/14/20 [Rx Confirmed 08/18/21] Custom functional orthotics #1 ea 06/16/20 [Rx Confirmed 08/18/21] albuterol sulfate 90 mcg/actuation aerosol inhaler (Ventolin HFA) 2 puff INHALATION Q4H PRN 08/18/21 [History Confirmed 08/18/21] ascorbic acid (vitamin C) 500 mg tablet (Vitamin C) 500 mg PO BID 08/18/21 [History Confirmed 08/18/21] aspirin 81 mg capsule 81 mg PO DAILY 08/18/21 [History Confirmed 08/18/21] fexofenadine 180 mg PO BID 08/18/21 [History Confirmed 08/18/21] fexofenadine 180 mg tablet (Sheeba Allergy) 180 mg PO BID 08/18/21 [History Confirmed 08/18/21] fluticasone propionate 50 mcg/actuation nasal spray,suspension 1 spray INTRANASAL DAILY 08/18/21 [History Confirmed 08/18/21] magnesium 250 mg tablet 500 mg PO DAILY 08/18/21 [History Confirmed 08/18/21] vitamin E acetate 134 mg (200 unit) capsule 134 mg PO DAILY 08/18/21 [History Confirmed 08/18/21] Discharge Plan Discharge Patient Disposition: [facility] Condition: Stable Prescriptions: Continued (DME) [place]ock ankle braces, bilateral See Rx Instructions .Route .MEDSUPPLY Qty: 1 0RF Rx Instructions: As directed B12 Active 1,000 mcg tablet,chewable 1,000 mcg PO DAILY 0RF (DME) night splint See Rx Instructions .Route .MEDSUPPLY Qty: 1 0RF Rx Instructions: As directed (DME) Custom functional orthotics See Rx Instructions .Route .MEDSUPPLY Qty: 1 0RF Rx Instructions: As directed losartan 50 mg Tablet 50 mg PO DAILY 0RF carisoprodol 350 mg Tablet 350 mg PO TID PRN (Reason: Pain) 0RF furosemide [Lasix] 40 mg Tablet 40 mg PO DAILY PRN (Reason: Edema) 0RF potassium chloride 10 mEq Capsule, Extended Release 10 meq PO DAILY 0RF alprazolam 1 mg Tablet 1 mg PO QID PRN (Reason: Anxiety) 0RF trazodone 100 mg Tablet 200 mg PO BEDTIME 0RF pantoprazole 40 mg Tablet,Delayed Release (Dr/Ec) 40 mg PO DAILY 0RF montelukast 10 mg Tablet 10 mg PO DAILY 0RF ergocalciferol (vitamin D2) 50,000 unit Capsule 50,000 unit PO Q7D 0RF Rx Instructions: on monday topiramate 100 mg Tablet 100 mg PO DAILY 0RF levothyroxine 25 mcg Capsule 25 mcg PO DAILY 0RF Ventolin HFA 90 mcg/actuation Hfa Aerosol Inhaler 2 puff INHALATION Q4H PRN (Reason: Shortness Of Breath) 0RF fluticasone propionate 50 mcg/actuation [place],Suspension 1 spray INTRANASAL DAILY 0RF Rx Instructions: administer into each nostril vitamin E acetate 134 mg (200 unit) Capsule 134 mg PO DAILY 0RF aspirin 81 mg Capsule 81 mg PO DAILY 0RF fexofenadine 180 mg PO BID 0RF Sheeba Allergy 180 mg Tablet 180 mg PO BID 0RF magnesium 250 mg Tablet 500 mg PO DAILY 0RF Vitamin C 500 mg Tablet 500 mg PO BID 0RF Discontinued cefuroxime axetil [Ceftin] 250 mg Tablet 250 mg PO BID 0RF Discharge Orders: Discharge Order (Routine); Ordered 09/15/21 Ordered By: Brendan White Transfer Out of Facility (Order); Ordered 09/15/21 Ordered By: Brendan White Referrals: Philippe Garg MD [Primary Care Provider] - Transfer Attestations Time Spent in Transfer Care: less than 30 min Quality Metrics Clinical Quality Measures [ No reported AMI, CVA or VTE this stay] Coding Level of Care Code Acute [place] for g Fwd Diagnoses DIC (disseminated intravascular coagulation) D65 Acquired thrombocytopenia D69.6 Pulmonary embolism associated with COVID-19 U07.1; I26.99 Acute respiratory distress syndrome (ARDS) due to 2019 novel coronavirus U07.1; J80 Anxiety F41.9 Acute respiratory failure with hypoxia J96.01 Nonpalpable pulse Z78.9 Goals of care, counseling/discussion Z71.89
[2021-09-15] MEDS: HYDROcodone-acetaminophen 5-325 mg Tablet 1 TAB PO ×2 (11:20→17:24)
[2021-09-15] MEDS: apixaban 5 mg Tablet PO ×2 (11:21→21:50)
[2021-09-15] MEDS: HYDROmorphone 1 mg/mL INJ 1 mL 0.2 MG IVP (14:43)
[2021-09-15 15:32] LABS: Sodium 146 mmol/L (136-145)
[2021-09-15] MEDS: alum-mag-hydroxide-sime 30 mL UDC 15 ML PO (15:48)
[2021-09-15] MEDS: dexmedeTOMIDine 0.9 % NaCL 400 MCG/100 ML PREMIX 8.07 MCG IV (18:35)
[2021-09-15] MEDS: acetaminophen 325 mg Tablet 650 MG PO (19:51)
[2021-09-15] MEDS: ALPRAZolam 0.5 mg Tablet 1 MG PO (20:41)
[2021-09-16] VITALS (16 sets, daily range): BP systolic 126–150; BP diastolic 72–87; PULSE 76–117; RESP 15–24; TEMP 36.7–37.1; O2SAT 92–99; BMI 30.7
[2021-09-16] MEDS: levalbuterol 0.63 mg/3 mL Neb INHALATION ×6 (00:31→21:27)
[2021-09-16] MEDS: ipratropium 0.5 mg/2.5 mL Neb INHALATION ×6 (00:31→21:27)
[2021-09-16 03:10] LABS: Basophils % 0.2 %; Eosinophils # 0.4 10^3/uL (0.0-0.8); Hematocrit 27.2 % (37.0-47.0); Hemoglobin 8.1 g/dL (11.5-15.3); Lymphocytes # 1.2 10^3/uL (0.8-4.8); Lymphocytes % 9.8 %; Mean Corpuscular HGB Conc 29.8 g/dL (30.0-36.0); Mean Corpuscular Hemoglobin 30.9 pg (28.0-34.0); Mean Corpuscular Volume 103.8 fl (81-99); Mean Platelet Volume 9.2 fL (7.4-10.4); Monocytes # 0.9 10^3/uL (0.2-0.9); Monocytes % 7.1 %; Neutrophils # 9.76 10^3/uL (1.8-7.7); Neutrophils % 78.1 %; Nucleated Red Blood Cells # 0.1 /100WBC; Nucleated Red Blood Cells % 0.7 %; Platelet Count 340 10^3/cmm (130-400); Red Blood Count 2.62 10^6/uL (4.1-5.3); Red Cell Distribution Width 21.8 % (12.1-15.1); White Blood Count 12.5 10^3/uL (4.0-10.0)
[2021-09-16 03:27] LABS: Alanine Aminotransferase 37 U/L (0-33); Albumin Level 3.2 g/dL (3.5-5.2); Alkaline Phosphatase 70 IU/L (35-105); Anion Gap 10.1 (5-19); Aspartate Amino Transferase 25 U/L (0-32); Blood Urea Nitrogen 15 mg/dL (6-20); Calcium 9.3 mg/dL (8.5-10.5); Carbon Dioxide 29 mmol/L (22-29); Chloride 109 mmol/L (98-107); Globulin 2.9 g/dL (1.3-4.6); Glomerular Filtration Rate 227.7 mL/min (90-130); Glucose 148 mg/dL (65-115); Osmolality Calculated 304 mOsm/kg (285-295); Potassium 3.1 mmol/L (3.5-5.1); Sodium 145 mmol/L (136-145); Total Protein 6.1 g/dL (6.6-8.7)
--- NOTE | 2021-09-16 04:08 | PC.NURSE ---
Transfer Patient transferred to [facility] room 251 via bed. All patient belongings accounted for and at patient bedside. Receiving nurse aware and in room.
[2021-09-16] MEDS: piperacillin-tazobactam 3.375 GM in sodium chloride 0.9% (plus) 50 ML IV (04:09)
[2021-09-16] MEDS: HYDROcodone-acetaminophen 5-325 mg Tablet 1 TAB PO ×2 (04:48→20:36)
[2021-09-16] MEDS: lanolin oint 7 gm 1 APPLIC TOPICAL (05:13)
[2021-09-16] MEDS: budesonide 0.5 mg/2 mL Neb INHALATION ×2 (07:40→21:27)
[2021-09-16] MEDS: quetiapine 25 mg Tablet PO (08:30)
[2021-09-16] MEDS: benzonatate 100 mg Capsule 200 MG PO ×3 (08:30→20:36)
[2021-09-16] MEDS: aspirin 81 mg EC Tablet PO (08:30)
[2021-09-16] MEDS: ferrous gluconate 324 mg Tablet PO (08:30)
[2021-09-16] MEDS: bisacodyl 5 mg Tablet 10 MG PO (08:30)
[2021-09-16] MEDS: zinc gluconate 50 mg Tablet PO (08:30)
[2021-09-16] MEDS: ascorbic acid 500 mg Tablet PO (08:31)
[2021-09-16] MEDS: pantoprazole 40 mg SDV IVP (08:31)
[2021-09-16] MEDS: topiramate 100 mg Tablet PO (08:31)
[2021-09-16] MEDS: levothyroxine 25 mcg Tablet PO (08:31)
[2021-09-16] MEDS: montelukast sodium 10 mg Tablet PO (08:31)
--- NOTE | 2021-09-16 10:04 | P.PN_ITS ---
Subjective Subjective: Patient was eating breakfast this morning, she was able to tell me about her cough She was okay using [employer] for now manager hair updated me that transportation is difficult today most likely she will be discharged tomorrow to [facility] facility Vitals/I&O/Wt Last Vital Signs Temp 98.1 F 09/16/21 08:00 Pulse 91 09/16/21 08:00 Resp 16 09/16/21 08:00 BP 137/78 09/16/21 08:00 Pulse Ox 96 09/16/21 08:00 09/15/21 09/16/21 09/16/21 22:59 06:59 14:59 Intake Total 612.246 / 5864.311 4251.874 / 2417.252 283 / 283 Balance 612.246 / -078.856 6193.874 / 617.252 283 / 283 Weight last 48 hrs Weight 86.455 kg Weight 86.455 kg Weight 87.226 kg Physical Exam Narrative: Patient was sitting in her bed trying to eat her breakfast I did not appreciate any aspiration or choking while eating eggs and toast Lower extremities have good pulses dorsalis pedis 2+ bilaterally, feet are warm No sign of ischemic ulcer Gomez catheter draining concentrated urine Abdomen soft No audible stridor or wheezing Currently on heated high flow 40 L, 35% Nonfocal neuro exam Overall fatigued and tired with decrease of muscle strength in all extremities Urinary Catheter Management: Gomez: Cath Placed During This Visit: yes Reason for Continuing Indwelling Catheter: Other Urinary Catheter Date of Insertion: 08/29/21 Urinary Catheter Time of Insertion: 01:18 Data : 09/16/21 03:05 09/16/21 03:05 A&P Assessment and plan (1) DIC (disseminated intravascular coagulation): Status: Acute (2) Acquired thrombocytopenia: Status: Acute (3) Ileus: Status: Acute (4) Septic shock: Status: Acute (5) Goals of care, counseling/discussion: Status: Acute (6) Pulmonary embolism associated with COVID-19: Status: Acute (7) Acute respiratory distress syndrome (ARDS) due to 2019 novel coronavirus: Status: Acute (8) HTN (hypertension): Status: Acute (9) COVID-19: Status: Acute (10) Acute respiratory failure with hypoxia: Status: Acute Plan COVID-19 related hypoxia ARDS Since extubation patient is doing better Her anxiety has not worsened Currently on heated high flow 40% 35 L Experiencing cough for which she is on Tessalon Perles, will add dextromethorphan and Mucinex DuoNeb treatment For her PE I would continue Eliquis Awaiting transportation to LTAC Discontinue antibiotics Zosyn and use Levaquin instead Attestations Medical Necessity Statement*: Awaiting transportation Time Spent in Patient Care: 15min Coding Level of Care Code Acute [place] [employer] for g Fwd Diagnoses DIC (disseminated intravascular coagulation) D65 Acquired thrombocytopenia D69.6 Ileus K56.7 Septic shock A41.9; R65.21 Goals of care, counseling/discussion Z71.89 Pulmonary embolism associated with COVID-19 U07.1; I26.99 Acute respiratory distress syndrome (ARDS) due to 2019 novel coronavirus U07.1; J80 HTN (hypertension) I10 COVID-19 U07.1 Acute respiratory failure with hypoxia J96.01
[2021-09-16] MEDS: ALPRAZolam 0.5 mg Tablet 1 MG PO ×3 (10:28→20:36)
[2021-09-16] MEDS: lactated ringers 1,000 ML 30 ML IV (10:30)
[2021-09-16] MEDS: lidocaine 1% 5 ML in potassium chloride premix 100 ML 25 ML IV (10:30)
--- NOTE | 2021-09-16 10:53 | PC.NURSE ---
Dr. White notified that patient's urine starting to look blood tinged in tubing. Orders received to manually irrigate bladder and hold eliquis at this time.
--- NOTE | 2021-09-16 11:43 | PC.SOCIAL ---
IMM Updated Updated pt on IMM. No questions voiced. Provided pt a copy. Initialed, dated, & timed copy in chart.
[2021-09-16 12:17] LABS: P. Jirovecii DNA QL PCR NOT DETECTED; Pneumocystis Jirovecii DNA PCR NO DNA DETECTED copies/mL
[2021-09-17] VITALS (12 sets, daily range): BP systolic 145–151; BP diastolic 80–89; PULSE 98–111; RESP 18–22; TEMP 36.8–37.2; O2SAT 90–98
[2021-09-17] MEDS: ipratropium 0.5 mg/2.5 mL Neb INHALATION ×4 (00:15→11:38)
[2021-09-17] MEDS: levalbuterol 0.63 mg/3 mL Neb INHALATION ×4 (00:15→11:38)
[2021-09-17] MEDS: HYDROcodone-acetaminophen 5-325 mg Tablet 1 TAB PO ×2 (03:26→09:40)
[2021-09-17 05:12] LABS: Basophils % 0.2 %; Eosinophils # 0.5 10^3/uL (0.0-0.8); Hematocrit 30.7 % (37.0-47.0); Lymphocytes # 1.6 10^3/uL (0.8-4.8); Lymphocytes % 8.7 %; Mean Corpuscular HGB Conc 29.3 g/dL (30.0-36.0); Mean Corpuscular Hemoglobin 31.3 pg (28.0-34.0); Mean Corpuscular Volume 106.6 fl (81-99); Mean Platelet Volume 9.6 fL (7.4-10.4); Monocytes # 1.1 10^3/uL (0.2-0.9); Monocytes % 6.1 %; Neutrophils # 14.33 10^3/uL (1.8-7.7); Neutrophils % 80.3 %; Nucleated Red Blood Cells # 0.2 /100WBC; Nucleated Red Blood Cells % 0.9 %; Platelet Count 360 10^3/cmm (130-400); Red Blood Count 2.88 10^6/uL (4.1-5.3); Red Cell Distribution Width 22.5 % (12.1-15.1); White Blood Count 17.9 10^3/uL (4.0-10.0)
[2021-09-17 05:30] LABS: Alanine Aminotransferase 34 U/L (0-33); Albumin Level 3.2 g/dL (3.5-5.2); Alkaline Phosphatase 69 IU/L (35-105); Anion Gap 13.1 (5-19); Aspartate Amino Transferase 23 U/L (0-32); Blood Urea Nitrogen 11 mg/dL (6-20); Carbon Dioxide 24 mmol/L (22-29); Chloride 111 mmol/L (98-107); Globulin 2.6 g/dL (1.3-4.6); Glomerular Filtration Rate 227.7 mL/min (90-130); Glucose 134 mg/dL (65-115); Osmolality Calculated 301 mOsm/kg (285-295); Potassium 3.1 mmol/L (3.5-5.1); Sodium 145 mmol/L (136-145); Total Protein 5.8 g/dL (6.6-8.7)
[2021-09-17] MEDS: levoFLOXacin 750 mg Tablet PO (06:09)
[2021-09-17] MEDS: budesonide 0.5 mg/2 mL Neb INHALATION (07:52)
[2021-09-17] MEDS: acetylcysteine 200 mg/mL SDV 4 mL INHALATION (07:52)
[2021-09-17] MEDS: lidocaine 1% 5 ML in potassium chloride premix 100 ML 25 ML IV (08:16)
[2021-09-17] MEDS: apixaban 5 mg Tablet PO (08:28)
[2021-09-17] MEDS: montelukast sodium 10 mg Tablet PO (08:28)
[2021-09-17] MEDS: aspirin 81 mg EC Tablet PO (08:28)
[2021-09-17] MEDS: bisacodyl 5 mg Tablet 10 MG PO (08:28)
[2021-09-17] MEDS: quetiapine 25 mg Tablet PO (08:29)
[2021-09-17] MEDS: benzonatate 100 mg Capsule 200 MG PO (08:29)
[2021-09-17] MEDS: levothyroxine 25 mcg Tablet PO (08:29)
[2021-09-17] MEDS: ascorbic acid 500 mg Tablet PO (08:29)
[2021-09-17] MEDS: topiramate 100 mg Tablet PO (08:29)
[2021-09-17] MEDS: zinc gluconate 50 mg Tablet PO (08:29)
[2021-09-17] MEDS: lactated ringers 1,000 ML 30 ML IV (08:30)
--- NOTE | 2021-09-17 10:12 | PM.MISC ---
Miscellaneous Note Note: Patient was seen and examined today she is on 35% FiO2 [address] Report given [address] Mascorro He wants Gomez and central line to stay in, they will plan to remove at the facility Patient is able to eat on her own Very fatigued and lethargic Nonfocal neuro exam Awake and alert Bilateral breath sounds Abdomen soft No signs of edema Gomez catheter draining concentrated urine Transfer to LTAC today
[2021-09-17] MEDS: ALPRAZolam 0.5 mg Tablet 1 MG PO (11:11)
--- NOTE | 2021-09-17 11:34 | PC.NURSE ---
Report called to SUNNY Franco at [facility].
--- NOTE | 2021-09-17 13:49 | PC.NURSE ---
Patient discharged to [facility] to be transported via [facility]
== END 2021-09-17 13:40 | DRG 207 ==
LOC: ER 08:52 → ER IP 10:56 → MEDSURG 08-24 07:01 → ICU 08-29 19:45 → CSU 09-09 10:13 → ER 09-09 10:13 → ER IP 09-09 10:13 → ICU 09-09 10:13 → MEDSURG 09-09 10:13 → ICU 09-15 10:59 → MEDSURG 09-16 04:00
PROVIDERS: Emergency Medicine; Family Medicine; Internal Medicine; Internal Medicine Pulmonary Disease; Student in an Organized Health Care Education/Training Program; Admitting Provider Student in an Organized Health Care Education/Training Program; Emergency Provider Family Medicine; PCP Family Medicine; Visit Provider Internal Medicine
DX: U07.1 COVID-19 (principal); J12.82 Pneumonia due to coronavirus disease 2019; A41.9 Sepsis, unspecified organism; R65.21 Severe sepsis with septic shock; J80 Acute respiratory distress syndrome; I26.93 Single subsegmental thrombotic pulmonary embolism without acute cor pulmonale; D65 Disseminated intravascular coagulation [defibrination syndrome]; J69.0 Pneumonitis due to inhalation of food and vomit; J15.9 Unspecified bacterial pneumonia; N39.0 Urinary tract infection, site not specified; K56.7 Ileus, unspecified; D59.19 Other autoimmune hemolytic anemia; B37.0 Candidal stomatitis; E27.2 Addisonian crisis; I10 Essential (primary) hypertension; E03.9 Hypothyroidism, unspecified; F41.9 Anxiety disorder, unspecified; M76.72 Peroneal tendinitis, left leg; M72.2 Plantar fascial fibromatosis; Z79.82 Long term (current) use of aspirin; Z66 Do not resuscitate; T36.8X5A Adverse effect of other systemic antibiotics, initial encounter; E87.5 Hyperkalemia; I27.20 Pulmonary hypertension, unspecified
CPT/HCPCS: 36410; 36415; 36416; 36430; 36556; 36592; 36600; 51702; 71045; 71250; 71275; 74176; 76937; 80048; 80051; 80053; 80202; 80500; 81001; 81003; 82330; 82533; 82550; 82803; 82805; 82962; 83010; 83540; 83550; 83605; 83615; 83735; 83880; 84100; 84132; 84145; 84295; 84443; 84478; 84484; 85007; 85014; 85018; 85025; 85027; 85045; 85362; 85378; 85384; 85610; 85730; 86022; 86140; 86403; 86850; 86880; 86900; 86920; 87040; 87070; 87075; 87086; 87102; 87106; 87150; 87205; 87206; 87449; 87641; 87798; 87799; 89050; 92523; 92524; 92526; 92610; 93005; 93306; 93926; 93970; 94002; 94003; 94640; 94660; 94669; 94799; 96365; 96366; 96367; 96372; 96375; 96376; 97110; 97161; 97167; 97530; 99291; A4570; C1751; C9113; J0637; J0696; J0743; J0883; J1100; J1170; J1200; J1450; J1644; J1650; J1720; J1815; J1885; J1940; J2060; J2250; J2405; J2543; J2704; J2765; J2920; J3010; J3262; J3370; J3480; J3490; J7030; J7050; J7512; J7608; J7614; J7626; J7644; J7799; P9016; P9047; Q9967

== ENCOUNTER 2021-11-26 16:13 | Emergency (ER) | payer MEDICARE, MEDICAID, SELFPAY ==
[2021-11-26 16:22] VITALS: BP 142/122; PULSE 101; RESP 20; TEMP 36.6; O2SAT 100; BMI 30.8
--- NOTE | 2021-11-26 16:54 | ECG_ITS ---
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 Measurements Intervals [place] Rate: 94 P: 31 IA: 162 QRS: -27 QRSD: 98 T: -3 QT: 345 QTc: 432 Interpretive Statements SINUS RHYTHM BORDERLINE LEFT AXIS DEVIATION [QRS AXIS < -20] MINIMAL VOLTAGE CRITERIA FOR LVH, CONSIDER NORMAL VARIANT [MEETS CRITERIA IN ONE OF: R(aVL), S(V1), R(V5), R(V5/V6)+S(V1)] Compared to ECG 09/07/2021 21:12:51 ST (T wave) deviation no longer present T-wave abnormality no longer present Possible ischemia no longer present Electronically Signed On 11-26-2021 20:22:27 CDT by Venu Naranjo M.D. [email or web address]
--- NOTE | 2021-11-26 16:54 | XRR_ITS ---
PROCEDURE INFORMATION: Exam: XR Chest Exam date and time: 11/26/2021 5:26 PM Age: 61 years old Clinical indication: Pain; Shortness of breath; Chest pressure; Additional info: SOB TECHNIQUE: Imaging protocol: XR of the chest. Views: 1 view. COMPARISON: CR XR chest 1V portable [id number] 09/14/2021 4:30 AM FINDINGS: Lungs: A calcified granuloma is present in the right lung apex. Right basilar atelectasis is also noted. The lungs are otherwise clear. Pleural spaces: Unremarkable. No pleural effusion. No pneumothorax. Heart/Mediastinum: Unremarkable. No cardiomegaly. Bones/joints: Mild degenerative changes are present in the thoracic spine. Right shoulder acromioplasty changes are noted. No acute fracture is seen. XR/XR chest 1V [id number] IMPRESSION: No acute cardiopulmonary abnormality.
--- NOTE | 2021-11-26 17:23 | ED_ITS ---
HPI - Chest Pain General: Chief Complaint: Chest Pain Stated Complaint: chest pain/SOB Time Seen by Provider: 11/26/21 16:44 Source: patient and family Mode of arrival: ambulatory Limitations: no limitations History of Present Illness: This patient was referred to the emergency department because of diastolic hypertension noted on a couple of occasions by home health. She also had episodes of chest pain last night that seemingly lasted for at least 8 or 10 hours. She states the pain is predominantly left- sided and achy in nature. She does not have a history of coronary artery disease. She does have a history of having COVID with a protracted course requiring multiple day ICU stay as well as 2 episodes of being intubated and mechanically ventilated. [facility] [place] [facility] being discharged to home. She currently is on supplemental oxygen. She has not been taking any antihypertensives as her blood pressures were low during her hospitalization and posthospitalization. She has had some vocal cord paralysis issues after being intubated as well. She denies any fever or constitutional complaints otherwise. She states she been slowly rehabil itating and getting back to some semblance of her previous life. MD complaint: chest discomfort Timing of current episode: constant Pain location: left chest Pain radiation: none Quality: aching and sharp Relieving factors: nothing Exacerbating factors: palpation Context: recent illness Associated symptoms: Reports dyspnea; Deny abdominal pain, fever(s), nausea, palpitations, syncope or vomiting Risk Factors: Coronary artery disease risk factors: none Related Data: On Oral Contraceptives: No Review of Systems Const: Reports: fatigue; Denies: fever(s), chills or body aches Eyes: Denies: change in vision or blurry vision ENMT: Reports: hoarseness; Denies: throat pain or odynophagia Card: Reports: chest pain and dyspnea on exertion; Denies: palpitations, irregular heart rhythm, edema, swelling of feet/ankles, lightheadedness, syncope or pre-syncope Resp: Reports: dyspnea; Denies: productive cough or non-productive cough GI: Denies: abdominal pain, nausea or vomiting : Denies: flank pain, difficulty voiding or dysuria Musc: Denies: neck pain, back pain, extremity pain or extremity swelling Skin/Breast: Denies: rash Neuro: Denies: headache(s) Psych: Denies: anxiety or depression Endo: Denies: polyuria Aashish/Lymph: Denies: easy bruising or easy bleeding PFSH ED PFSH: Medical History Acute respiratory failure with hypoxia Anxiety COVID-19 Goals of care, counseling/discussion HTN (hypertension) Hypothyroidism Kidney disease Peroneal tendinitis, left leg Plantar fasciitis, left Spinal stenosis Social History Smoking and tobacco status: never smoked Alcohol intake: never Caregiver/support person: Yes Lives independently: Yes Household members: spouse Housing: House Marital status: Physical Exam Narrative: EXAM NARRATIVE: She is alert she speaks in somewhat voice but is easily understood and is goal- directed. No dyspnea with extended conversation. Const: COMMON NORMALS: no acute distress, average body habitus and patient oriented x3 GENERAL APPEARANCE: cooperative HENMT: COMMON NORMALS: normocephalic, atraumatic, Normal nasal mucous membranes and turbinates present and moist oral mucous membranes HEAD & SCALP: normocephalic and atraumatic NOSE: Normal nasal mucous membranes and turbinates present Eye: COMMON NORMALS: Equal, round and reactive pupils present, EOMs intact bilaterally and conjunctivae normal CONJUNCTIVA: Yes conjunctivae normal PUPIL: Yes Equal, round and reactive pupils present Neck/C-Spine: COMMON NORMALS: full ROM, no lymphadenopathy, no JVD and No carotid bruits Lymph: LYMPHATIC: no lymphadenopathy noted Chest: COMMONS NORMALS: normal inspection of the chest CHEST: Yes tenderness (Generalized tenderness along the left upper anterior chest. No ecchymosis ) rib, sternum, costochondral junction and sternoclavicular joint Resp: COMMON NORMALS: normal respiratory effort, No retractions and No use of accessory muscles AUSCULTATION: no crackles, no wheezes and diminished lung sounds bilateral (Bases) Cardio: COMMON NORMALS: no JVD, regular rate, regular rhythm, No murmurs present (Cardio), No rub (Cardio) and Peripheral pulses 2+ throughout RATE: regular rate RHYTHM: regular rhythm PERIPHERAL PULSES: Peripheral pulses 2+ throughout GI: COMMON NORMALS: Soft to palpation and non-tender PALPATION: Yes Soft to palpation : COMMON NORMALS: Yes no CVA tenderness BLADDER/KIDNEY EXAM: Yes no CVA tenderness Back/Pelvis: COMMON NORMALS: no CVA tenderness, thoracic and lumbar spine normal to inspection, no thoracic nor lumbar tenderness and thoraco-lumbar ROM normal Extremity: COMMON NORMALS: normal to inspection, full ROM, capillary refill normal, no joint enlargement, no calf tenderness and no pedal edema Neuro: COMMON NORMALS: patient oriented x3, moves all extremities, no focal motor deficits and no sensory deficits noted Psych: COMMON NORMALS: mental status grossly normal and Normal thought process present THOUGHT PROCESS: Normal thought process present Skin: COMMON NORMALS: no rashes or lesions noted, no wounds and turgor normal GENERAL SKIN EXAM: no rashes or lesions noted and turgor normal Course ED course: Limited bedside ultrasound was used to attempt cardiac evaluation. She appeared to have grossly normal cardiac function. She had what appeared to be a physiologic amount of pericardial fluid. Again very technically difficult examination. Reevaluation(s): Reevaluation #1: The patient is remained stable throughout the emergency department stable with normal vital signs. Serial troponins have not shown any significant change from time 0 the time 2-hour. Her other laboratory parameters and radiographs have also been reassuring. She is a long COVID-patient and certainly could have a component of troponin elevation which is known and given percentage of these patients but certainly at this point time no evidence of ACS or uncontrolled hypertension etc. at this time. We discussed current findings and the ramifications and the need for close follow-up with both she and her daughter. She voices understanding and desires to be discharged from the emergency department. Consultations: Consultation #1: On-call cardiology was consulted and we reviewed her current findings and parameters. Time: 21:38 Vital Signs: Vital signs: Vital Signs Temperature 97.9 F 11/26/21 16:22 Pulse Rate 86 11/26/21 20:50 Respiratory Rate 16 11/26/21 20:50 Blood Pressure 163/110 11/26/21 20:50 Pulse Oximetry 100 11/26/21 20:50 MDM - Chest Pain Medical Decision Making SignificantThis patient with a history of COVID-19 disease requiring prolonged h ospitalization mechanical ventilation who is still in the recovery phase of her prolonged illness. She is here because she had a week of chest pain which is nonpleuritic in nature and not associated with fever cough etc. She is still oxygen requiring and actually her oxygen requirements have decreased over the past couple of weeks. Her initial troponin was slightly elevated over the baseline for high-sensitivity troponins and a second troponin was essentially unchanged. Her EKGs revealed no acute changes chest x-ray was normal and the remainder of her laboratory parameter parameters are reassuring. At bedside ultrasound did not reveal any significant pericardial fluid this evening. Pre ssures have been stable and no other concerning findings. I think her slight troponin elevation is likely related to her underlying COVID illness and certainly given the duration of symptoms highly unlikely to represent ACS. I think she is at low risk for other ongoing emergency medical condition at this time. She is stable to be discharged with cardiology follow-up. She voices understanding of her discussion and acknowledges return precautions. Medical Records I reviewed the patient's medical records. Lab Data I reviewed the patient's lab results. : 11/26/21 18:19 11/26/21 18:19 Radiology Impressions Chest X-Ray 11/26/21 16:54 IMPRESSION: No acute cardiopulmonary abnormality. Laboratory Results WBC 11.7 10^3/uL (4.0-10.0) H 11/26/21 18:19 RBC 4.39 10^6/uL (4.1-5.3) 11/26/21 18:19 Hgb 13.1 g/dL (11.5-15.3) 11/26/21 18:19 Hct 41.9 % (37.0-47.0) 11/26/21 18:19 MCV 95.4 fl (81-99) 11/26/21 18:19 MCH 29.8 pg (28.0-34.0) 11/26/21 18: MCHC 31.3 g/dL (30.0-36.0) 11/26/21 18:19 RDW 13.3 % (12.1-15.1) 11/26/21 18:19 Plt Count 295 10^3/cmm (130-400) 11/26/21 18:19 MPV 9.1 fL (7.4-10.4) 11/26/21 18:19 Neut % (Auto) 68.7 % 11/26/21 18:19 Lymph % (Auto) 22.5 % 11/26/21 18:19 [place] % (Auto) 7.9 % 11/26/21 18:19 Eos % (Auto) 0.3 % 11/26/21 18:19 Baso % (Auto) 0.3 % 11/26/21 18:19 Neut # (Auto) 8.03 10^3/uL (1.8-7.7) H 11/26/21 18:19 Lymph # (Auto) 2.6 10^3/uL (0.8-4.8) 11/26/21 18:19 [place] # (Auto) 0.9 10^3/uL (0.2-0.9) 11/26/21 18:19 Eos # (Auto) 0.0 10^3/uL (0.0-0.8) 11/26/21 18:19 Baso # (Auto) 0.0 10^3/uL (0.0-0.1) 11/26/21 18:19 Nucleated RBC % (auto) 0 % 11/26/21 18:19 Nucleated RBCs # 0.0 /100WBC 11/26/21 18:19 Sodium 137 mmol/L (136-145) 11/26/21 18:19 Potassium 3.7 mmol/L (3.5-5.1) 11/26/21 18:19 Chloride 104 mmol/L (98-107) 11/26/21 18:19 Carbon Dioxide 24 mmol/L (22-29) 11/26/21 18:19 Anion Gap 12.7 (5-19) 11/26/21 18:19 BUN 13 mg/dL (6-20) 11/26/21 18:19 Creatinine 0.6 mg/dL (0.5-0.9) 11/26/21 18:19 GFR Calculation 102.3 mL/min (90-130) 11/26/21 18:19 Glucose 68 mg/dL (65-115) 11/26/21 18:19 Calculated Osmolality 282 mOsm/kg (285-295) L 11/26/21 18:19 Calcium 9.2 mg/dL (8.5-10.5) 11/26/21 18:19 Total Bilirubin 0.2 mg/dL (0.15-1.2) 11/26/21 18:19 AST 13 U/L (0-32) 11/26/21 18:19 ALT 16 U/L (0-33) 11/26/21 18:19 Alkaline Phosphatase 81 IU/L (35-105) 11/26/21 18:19 Troponin T Baseline 20 ng/L (0-10) H 11/26/21 18:19 Troponin T 120 Minute 21.62 ng/L (0-10) H 11/26/21 21:15 Delta Troponin T 1.62 ABS# (0-10) 11/26/21 21:15 NT-Pro-B Natriuret Pep 99 pg/mL (0-125) 11/26/21 18:19 Total Protein 6.8 g/dL (6.6-8.7) 11/26/21 18:19 Albumin 3.8 g/dL (3.5-5.2) 11/26/21 18:19 Globulin 3.0 g/dL (1.3-4.6) 11/26/21 18:19 EKG Data EKG 1: I personally reviewed and interpreted this EKG as follows: EKG interpretation time: 16:30 Interpretation: EKG reveals a sinus rhythm 94 bpm. Normal intervals, normal axis. No acute ST- T wave changes noted. EKG 2: I personally reviewed and interpreted this EKG as follows: EKG interpretation time: 18:55 Interpretation: Second EKG this visit reveals sinus rhythm of 83 bpm. Normal intervals normal axis. No acute ST-T wave changes and no change from prior tracings within the system. Discharge Plan Discharge Patient Disposition: Home Clinical Impression: Chest pain, Long COVID Condition: Stable Prescriptions: No Action (DME) [place] ankle braces, bilateral See Rx Instructions .Route .MEDSUPPLY Qty: 1 0RF Rx Instructions: As directed B12 Active 1,000 mcg tablet,chewable 1,000 mcg PO DAILY 0RF (DME) night splint See Rx Instructions .Route .MEDSUPPLY Qty: 1 0RF Rx Instructions: As directed (DME) Custom functional orthotics See Rx Instructions .Route .MEDSUPPLY Qty: 1 0RF Rx Instructions: As directed losartan 50 mg Tablet 50 mg PO DAILY 0RF carisoprodol 350 mg Tablet 350 mg PO TID PRN (Reason: Pain) 0RF furosemide [Lasix] 40 mg Tablet 40 mg PO DAILY PRN (Reason: Edema) 0RF potassium chloride 10 mEq Capsule, Extended Release 10 meq PO DAILY 0RF alprazolam 1 mg Tablet 1 mg PO QID PRN (Reason: Anxiety) 0RF trazodone 100 mg Tablet 200 mg PO BEDTIME 0RF pantoprazole 40 mg Tablet,Delayed Release (Dr/Ec) 40 mg PO DAILY 0RF montelukast 10 mg Tablet 10 mg PO DAILY 0RF ergocalciferol (vitamin D2) 50,000 unit Capsule 50,000 unit PO Q7D 0RF Rx Instructions: on monday topiramate 100 mg Tablet 100 mg PO DAILY 0RF levothyroxine 25 mcg Capsule 25 mcg PO DAILY 0RF Ventolin HFA 90 mcg/actuation Hfa Aerosol Inhaler 2 puff INHALATION Q4H PRN (Reason: Shortness Of Breath) 0RF fluticasone propionate 50 mcg/actuation [place],Suspension 1 spray INTRANASAL DAILY 0RF Rx Instructions: administer into each nostril vitamin E acetate 134 mg (200 unit) Capsule 134 mg PO DAILY 0RF aspirin 81 mg Capsule 81 mg PO DAILY 0RF fexofenadine 180 mg PO BID 0RF Sheeba Allergy 180 mg Tablet 180 mg PO BID 0RF magnesium 250 mg Tablet 500 mg PO DAILY 0RF Vitamin C 500 mg Tablet 500 mg PO BID 0RF Discharge Orders: Discharge ED (Routine); Ordered 11/26/21 Ordered By: Andres Egan Referrals: Philippe Garg MD [Primary Care Provider] - 4-7 days (Follow-up from ED visit and consideration for cardiology referral) Discharge Diet: Usual diet Discharge Activity: Increase activity as tolerated Patient Instructions: Opioid Safety Activity Restrictions/Additional Instructions: Take your current prescribed medications. Monitor your blood pressure at home and if it remains elevated in the range greater than 160/90 begin one half of your previous dose of losartan which will be 25 mg daily. If you develop any increasing shortness of breath, fever or other concerning symptoms return to this or the nearest emergency department. Coding Level of Care Code ED [employer] Case Records Supervisor for Tony Vences Exam Comprehensive
[2021-11-26 18:34] LABS: Basophils % 0.3 %; Eosinophils % 0.3 %; Hematocrit 41.9 % (37.0-47.0); Hemoglobin 13.1 g/dL (11.5-15.3); Lymphocytes # 2.6 10^3/uL (0.8-4.8); Lymphocytes % 22.5 %; Mean Corpuscular HGB Conc 31.3 g/dL (30.0-36.0); Mean Corpuscular Hemoglobin 29.8 pg (28.0-34.0); Mean Corpuscular Volume 95.4 fl (81-99); Mean Platelet Volume 9.1 fL (7.4-10.4); Monocytes # 0.9 10^3/uL (0.2-0.9); Monocytes % 7.9 %; Neutrophils # 8.03 10^3/uL (1.8-7.7); Neutrophils % 68.7 %; Nucleated Red Blood Cells % 0 %; Platelet Count 295 10^3/cmm (130-400); Red Blood Count 4.39 10^6/uL (4.1-5.3); Red Cell Distribution Width 13.3 % (12.1-15.1); White Blood Count 11.7 10^3/uL (4.0-10.0)
--- NOTE | 2021-11-26 18:54 | ECG_ITS ---
[facility] Test Date: 2021-11-26 Pat Name: Renetta Uriostegui Department: Room: Gender: Female Processing Rep: : [id number] Requested By: Andres Egan Order Number: [id number] Sigrid MD: Venu Naranjo M.D. Measurements Intervals [place] Rate: 83 P: 38 PA: 162 QRS: -23 QRSD: 98 T: -2 QT: 360 QTc: 425 Interpretive Statements SINUS RHYTHM BORDERLINE LEFT AXIS DEVIATION [QRS AXIS < -20] MINIMAL VOLTAGE CRITERIA FOR LVH, CONSIDER NORMAL VARIANT [MEETS CRITERIA IN ONE OF: R(aVL), S(V1), R(V5), R(V5/V6)+S(V1)] Compared to ECG 11/26/2021 16:26:16 No significant changes Electronically Signed On 11-26-2021 20:28:00 CDT by Venu Naranjo M.D. [email or web address]
[2021-11-26 19:10] LABS: Troponin(5th) Baseline 20 ng/L (0-10)
[2021-11-26 19:24] LABS: Alanine Aminotransferase 16 U/L (0-33); Albumin Level 3.8 g/dL (3.5-5.2); Alkaline Phosphatase 81 IU/L (35-105); Anion Gap 12.7 (5-19); Aspartate Amino Transferase 13 U/L (0-32); Blood Urea Nitrogen 13 mg/dL (6-20); Calcium 9.2 mg/dL (8.5-10.5); Carbon Dioxide 24 mmol/L (22-29); Chloride 104 mmol/L (98-107); Glomerular Filtration Rate 102.3 mL/min (90-130); Glucose 68 mg/dL (65-115); NT Pro B Type Natriuretic Pept 99 pg/mL (0-125); Osmolality Calculated 282 mOsm/kg (285-295); Potassium 3.7 mmol/L (3.5-5.1); Sodium 137 mmol/L (136-145); Total Bilirubin 0.2 mg/dL (0.15-1.2); Total Protein 6.8 g/dL (6.6-8.7)
[2021-11-26] MEDS: acetaminophen 325 mg Tablet 650 MG PO (19:27)
[2021-11-26 20:50] VITALS: BP 163/110; PULSE 86; RESP 16; O2SAT 100
[2021-11-26 21:39] LABS: Troponin 5 2HR 21.62 ng/L (0-10); Troponin 5 2HR Delta 1.62 ABS# (0-10)
== END 2021-11-26 23:11 | disposition home or self-care (01) ==
PROVIDERS: Emergency Provider Emergency Medicine; PCP Family Medicine
DX: R07.9 Chest pain, unspecified (principal); U09.9 Post COVID-19 condition, unspecified; I10 Essential (primary) hypertension; E03.9 Hypothyroidism, unspecified
CPT/HCPCS: 71045; 80053; 83880; 84484; 85025; 93005; 99285

== ENCOUNTER 2022-01-14 09:43 | Outpatient (CLI) | payer MEDICARE, MEDICAID, SELFPAY ==
--- NOTE | 2022-01-14 09:55 | FL_ITS ---
WS: [id number] Exam: FL barium swallow modifd [id number] Date/Time of Exam: 01/14/2022 10:20 AM Reason For Exam: Other dysphagia Fluoroscopy time: 2min [id number] minutes # of spot films: 0 Modified barium swallow was performed in conjunction with the speech therapy service. The patient tolerated thin liquid, nectar consistency and pudding consistency barium mixture foodstuf fs without incident. Solid barium mixture foodstuffs were also well tolerated. The patient ingested t he barium tablet without complication. There was no sign of the aspiration or penetration into the la ryngeal inlet. Swallowing function at the level of oropharynx appears grossly normal. FL/FL barium swallow modifd [id number] IMPRESSION: 1. The patient tolerated all consistencies of barium mixture foodstuffs without aspiration or penetration. The patient ingested the barium tablet without diff iculty. A separate report with recommendations and findings will be provided by the [facility] ech therapy service.
--- NOTE | 2022-01-14 09:55 | CT_ITS ---
WS: [id number] CT NECK WITH CONTRAST HISTORY: DYSPHONIA TECHNIQUE: Contiguous 5 mm axial images are performed through the neck with intravenous contrast. Sag ittal and coronal reformats are also submitted. All CT scans at [facility] use at least one o f these dose optimization techniques: automated exposure control; mA and/or kV adjustment per patient size (includes targeted exams where dose is matched to clinical indication); or iterative reconstruc tion. CONTRAST: CONTRAST: Visipaque 320; 50 mL IV. DLP: 327.23 mGy.cm COMPARISON: None available. Nasopharynx, oropharynx, hypopharynx and larynx are unremarkable. No soft tissue masses or abnormal e nhancement. Mild thickening of the RIGHT focal cord but no enhancing mass. Torus tubarius and fossa of Rosenmuller and parapharyngeal fat are normal. No significant lymphadenopathy is identified. Thyroid gland and salivary glands are normally enhancing with no masses. No osseous abnormalities. Visualized portions of the skull base demonstrate no abnormalities. Orbits and globes are within norm al limits. No soft tissue masses. Visualized paranasal sinuses and mastoid air cells are normal. Lung apices are clear. CT/CT neck w con* [id number] IMPRESSION: 1. Very mild thickening of the RIGHT focal cord. No mass. 2. Remaining CT neck is negative.
[2022-01-14] MEDS: iodixanol 320 mg/mL 100mL Btl IV (10:20)
== END 2022-01-14 09:44 | disposition home or self-care (01) ==
LOC: RAD 09:54
PROVIDERS: PCP Family Medicine; Visit Provider Specialist
DX: R13.19 Other dysphagia (principal)
CPT/HCPCS: 70491; 74230; 92611

== ENCOUNTER 2022-07-18 07:18 | Outpatient (CLI) | payer MEDICARE, MEDICAID, SELFPAY ==
--- NOTE | 2022-07-18 07:28 | MR_ITS ---
WS: [id number] MRI BRAIN WITHOUT CONTRAST HISTORY: WORSENING MEMORY LOSS COMPARISON: 10/03/2012, 08/16/2010 TECHNIQUE: Diffusion imaging, multiplanar T1, T2 and FLAIR imaging obtained. No evidence for acute infarct or hemorrhage. Munoz-white matter differentiation is normal. Very mild progression of small vessel ischemic changes since 2012. There are a few scattered T2 and F LAIR signal hyperintensities in the periventricular and subcortical white matter. Stable increased T2 signal LEFT temporal lobe. No infarct. No hemorrhage. Ventricles and extra-axial spaces are normal. No inferior displacement of the cerebellar tonsils. Patient has a known, previously described pituita ry microadenoma which was better seen on the dedicated high-resolution imaging performed for pituitar y lesions. On today's examination this pituitary nodule does appear smaller in size and less lobulate d. This is compared to the most recent exam of 2012. Measures approximately 5 x 6 x 4 mm on today's e xamination. Dural venous sinuses and andreafski of [place] demonstrate no abnormality on this unenhanced studies. Paranasal sinuses: Clear. Mastoid air cells: Normal. Calvarium and scalp: Hyperostosis frontalis interna. MR/MR head wo con* [id number] IMPRESSION: 1. No acute infarct or hemorrhage. 2. Mild progression of small vessel ischemic disease which can be seen with hy pertension, smoking, diabetes and migraines. 3. Previously described pituitary microadenoma has slightly decreased in size and is less lobulated.
== END 2022-07-18 07:19 | disposition home or self-care (01) ==
LOC: RAD 07:19
PROVIDERS: PCP Family Medicine; Visit Provider Family Medicine
DX: R41.3 Other amnesia (principal); I67.82 Cerebral ischemia; D36.7 Benign neoplasm of other specified sites
CPT/HCPCS: 70551